=== PATIENT | male | born 1955 | race Caucasian/White ===

== ENCOUNTER → 2017-06-28 | Outpatient (CLI) | payer MEDICARE ==
[~2017-06-28] VITALS: Ht 175.3 cm; Wt 90.7 kg
[~2017-06-28] MED LIST: ALPR.25T PO; AMOX500C2 PO; ASP81TEC PO; CATHETER FLUSH 10 ML SYR IV PRN; CITA20TA4 PO; CLOP75TA PO; CLOP75TA69 PO; DICL75TA2 PO; DOXY100C42 PO; GABA-488 PO; GBPN400C PO; HYDR118S10 PO; LACT1CAP62 PO; LISI10TA2 PO; LISI5TAB PO; MECL25TA56 PO; MELA1TAB9 PO; METO25TA2 PO; METO25TA4 PO; MULT-1029 PO; MULT-298 PO; OMEG1CAP51 PO; OMEP20TA33 PO; PREG75CA PO; QTP200T PO; RANEXA 500MG PO; RANO500T2 PO; REGADENOSON 0.4 MG/5 ML SYR (LEXISCAN) IV ONE; SIMV10TA3 PO; SIMV20TA3 PO; SIMV40TA4 PO; TEMA30CA PO; TRAZ50TA67 PO; Ticagrelor PO; ZLP10T PO
== END ==
LOC: CARD 11:37
PROVIDERS: ATTEND Physician Assistant
DX: I25.10 Atherosclerotic heart disease of native coronary artery without angina pectoris; F41.9 Anxiety disorder, unspecified; E78.2 Mixed hyperlipidemia; I10 Essential (primary) hypertension

== ENCOUNTER → 2017-07-03 | Outpatient (CLI) | payer MEDICARE ==
[~2017-07-03] VITALS: Ht 175.3 cm; Wt 90.7 kg
[~2017-07-03] MED LIST changes: -CATHETER FLUSH 10 ML SYR IV PRN
[2017-07-03] MEDS: CATHETER FLUSH 10 ML SYR IV PRN ×2 (07:19→09:03)
[2017-07-03 09:00] VITALS: BP 152/93
--- NOTE | 2017-07-03 11:48 | STRESS TEST ---
DATE OF SERVICE: 07/03/2017 LEXISCAN MYOVIEW STRESS TEST REPORT REFERRING PHYSICIAN: 31. Baseline heart rate is 64, baseline blood pressure 147/92, baseline EKG sinus rhythm with no ischemic changes. In summary, the patient was injected with 10.49 mCi of technetium-99 Myoview and the resting images were obtained. Then, the patient received 0.4 mg of Lexiscan followed by 29.5 mCi of technetium-99 Myoview. Throughout the test, there were no EKG changes. The resting and stress images were reviewed and compared in the short axis, horizontal long axis, and vertical long axis views. Review of the images showed diaphragmatic attenuation with decreased uptake involving the whole inferior wall with no significant reversibility probably due to the diaphragmatic attenuation. SSS is 2, SDS zero. TID value 0.98. On the gated images, the left ventricle appeared to be normal size with hypokinesia involving the inferior wall, calculated ejection fraction 44%. CONCLUSION: 1. The patient tolerated Lexiscan well. 2. Diaphragmatic attenuation with fixed defect involving the whole inferior wall with no significant ischemia. 3. Normal left ventricular size with hypokinesia involving the inferior wall, calculated ejection fraction 44%. Job ID: [id number] DocumentID: [id number] Dictated Date: 07/03/2017 11:08:55 [employer] Manager Date: 07/03/2017 11:15:34 Dictated By: ALTAGRACIA SU MD
== END ==
LOC: CARD 07:00
PROVIDERS: ATTEND Physician Assistant
DX: I25.10 Atherosclerotic heart disease of native coronary artery without angina pectoris (principal); I10 Essential (primary) hypertension; E78.2 Mixed hyperlipidemia; F41.9 Anxiety disorder, unspecified
CPT/HCPCS: 78452; 93017

== ENCOUNTER → 2017-07-19 | Outpatient (CLI) | payer MEDICARE ==
[~2017-07-19] MED LIST changes: -REGADENOSON 0.4 MG/5 ML SYR (LEXISCAN) IV ONE
== END ==
LOC: CARD 10:30
PROVIDERS: ATTEND Physician Assistant
DX: I25.10 Atherosclerotic heart disease of native coronary artery without angina pectoris (principal); I10 Essential (primary) hypertension; E78.2 Mixed hyperlipidemia; F41.9 Anxiety disorder, unspecified
CPT/HCPCS: 93306

== ENCOUNTER → 2018-06-29 | Outpatient (CLI) | payer MEDICARE ==
--- NOTE | 2018-06-29 14:35 | Diagnostic Imaging Report ---
EXAM: CT CHEST SCREENING WO INDICATION: 45 pack year smoking history. Current smoker. COMPARISON: Chest radiograph 07/24/2015. CTA chest 01/03/2012. FINDINGS: There are advanced paraseptal and centrilobular emphysematous changes in both lungs. Diffuse bronchiectasis and bronchial wall thickening. 0.3 cm solid pulmonary nodule in the right middle lobe (series 2, image 175). No pleural effusion or pneumothorax. Sternotomy with CABG. Prominent caliber main pulmonary artery. Normal caliber thoracic aorta. No mediastinal, hilar or axillary lymphadenopathy. Right atrial enlargement. No pericardial effusion. The visualized upper abdominal contents are unremarkable. Age-appropriate spondylotic changes in the spine. No acute osseous findings. IMPRESSION: 1. Single 0.3 cm solid pulmonary nodule in the right middle lobe. Recommend continued screening with low dose chest CT in 12 months. 2. Advanced paraseptal and centrilobular emphysematous changes throughout the lungs. 3. Prominent caliber main pulmonary artery and right atrial enlargement compatible with pulmonary hypertension. LungRads category: 2. Modifier: S. Please note that the low-dose technique of this chest CT is of non-diagnostic quality. This study is only intended for lung cancer screening of high risk patients. Dictated by: Dictated on workstation # [id number]
== END ==
LOC: RAD 12:44
PROVIDERS: ATTEND Internal Medicine
DX: Z12.2 Encounter for screening for malignant neoplasm of respiratory organs (principal); F17.210 Nicotine dependence, cigarettes, uncomplicated; R91.1 Solitary pulmonary nodule; J43.9 Emphysema, unspecified; I77.89 Other specified disorders of arteries and arterioles; Z95.1 Presence of aortocoronary bypass graft

== ENCOUNTER → 2018-11-16 | Outpatient (CLI) | payer MEDICARE ==
[2018-11-16 14:51] LABS: ALANINE AMINOTRANSFERASE 54 U/L (0-55); ALBUMIN 4.8 GM/DL (3.2-4.5); ALKALINE PHOSPHATASE 78 U/L (40-136); BILIRUBIN,TOTAL 0.7 MG/DL (0.1-1.0); BUN/CREATININE RATIO 13; CALCIUM 10.3 MG/DL (8.5-10.1); CARBON DIOXIDE 20 MMOL/L (21-32); CHLORIDE 106 MMOL/L (98-107); CHOLESTEROL 208 MG/DL (< 200); CREATININE SERUM 1.46 MG/DL (0.60-1.30); GFR ESTIMATED 49; GLUCOSE 96 MG/DL (70-105); POTASSIUM 4.6 MMOL/L (3.6-5.0); SODIUM 136 MMOL/L (135-145); TOTAL PROTEIN 7.7 GM/DL (6.4-8.2); TRIGLYCERIDES 187 MG/DL (<150); VLDL CHOLESTEROL 37 MG/DL (5-40)
[2018-11-16 15:22] LABS: HDL CHOLESTEROL 43 MG/DL (40-60)
== END ==
LOC: LAB 14:13
PROVIDERS: ATTEND Physician Assistant
DX: I25.10 Atherosclerotic heart disease of native coronary artery without angina pectoris (principal); I10 Essential (primary) hypertension; E78.5 Hyperlipidemia, unspecified
CPT/HCPCS: 36415; 80053; 80061

== ENCOUNTER → 2019-05-03 | Day surgery (SDC) | payer MEDICARE ==
[~2019-05-03] VITALS: Ht 175.3 cm; Wt 101.2 kg
[~2019-05-03] MED LIST changes: +LIDOCAINE 1% INJ 20 ML 20 ML VIAL ONE; +REGADENOSON 0.4 MG/5 ML SYR (LEXISCAN) IV ONE
[2019-05-03 07:19] VITALS: BP 109/66
--- NOTE | 2019-05-03 09:09 | Implantation of Loop Monitor ---
Implant of Loop Monitior IMPLANTATION OF LOOP MONITOR REPORT DATE OF PROCEDURE: 05/03/19 PREOP DIAGNOSIS: syncope POSTOP DIAGNOSIS: syncope PROCEDURE DETAILS: The patient is a 64 male with history of paroxysmal atrial fibrillation requiring long-term surveillance. Therefore implantable loop recorder was discussed and agreed with the patient. Informed consent was taken. All risks and complications were discussed at length. The patient was draped and prepped in the usual sterile fashion. Local anesthesia was lidocaine, which was given in the substernal area close to the 4th intercostal space. Loop monitor [employer] with serial number [id number] was implanted according to the protocol. Steri- Strips were placed at the end of the procedure. There were no complications and the patient tolerated the procedure well. The device was interrogated with a v oltage of. ANESTHESIA: Local anesthesia with lidocaine. COMPLICATIONS: None CONTRAST/FLUOROSCOPY: None CONCLUSION: successful loop recorder implantation with no complications FINAL DIAGNOSIS: syncope Coronary artery disease Hypertension Hyperlipidemia ALTAGRACIA SU MD May 03, 2019 09:09
--- OUTSIDE RECORDS SUMMARY | 2019-05-03 09:19 | XMS REPORT ---
Author Author BELEM FUENTES Organization [facility] Address [address] [place] [address] Care Team Providers Care Watcher Automat Long Goods Name Role Phone BELEM FUENTES Unavailable PROBLEMS Type Condition ICD9-CM Code HUB93-QJ Code Onset Dates Condition Status SNOMED Code Problem Centrilobular emphysema J43.2 Active 92686170 Problem Chest wall pain R07.89 Active 218010113 Problem Chronic kidney disease N18.9 Active 992737432 Problem Coronary artery disease involving redding coronary artery of redding heart without angina pectoris I25.10 Active 6114127005227 Problem Chronic fatigue R53.82 Active 66925156 Problem Vertigo R42 Active 311956030 Problem Anemia, unspecified type D64.9 Active 769264810 Problem Iron deficiency anemia, unspecified iron deficiency anemia type D50.9 Active 53288519 Problem Mixed hyperlipidemia E78.2 Active 060842542 ALLERGIES No Information ENCOUNTERS Encounter Location Date Diagnosis [facility] [id number] [place] [address] Mar, [facility] [id number] [place] [address] Mar, Chest wall pain R07.89 [facility] [id number] [place] [address] Feb, Chest wall pain R07.89 [facility] [id number] [place] [address] Feb, Chest wall pain R07.89 [facility] [id number] [place] [address] Feb, [facility] [id number] [place] [address] Feb, Chest wall pain R07.89 [facility] [address] [facility] [id number] [address] January, Chest wall pain R07.89 and High risk medication use Z79.899 [facility] [address] [facility] [id number] [place] [address] January, Chest wall pain R07.89 [facility] [id number] [place] [address] January, Chest wall pain R07.89 [facility] [id number] [place] [address] Dec, Chest wall pain R07.89 [facility] [id number] [place] [address] Nov, Chest wall pain R07.89 [facility] [id number] [place] [address] Nov, [facility] [id number] [place] [address] Oct, Chest wall pain R07.89 [facility] [id number] [place] [address] Oct, Encounter for immunization Z23 [facility] [id number] [place] [address] Sep, [facility] [id number] [place] [address] Sep, Chest wall pain R07.89 [facility] [address] [address] Aug, Chest wall pain R07.89 [facility] [id number] [place] [address] Jul, Chest wall pain R07.89 [facility] [id number] [place] [address] Jun, Chest wall pain R07.89 [facility] [address] [address] Jun, [facility] [id number] [place] [address] Jun, Encounter for immunization Z23 [facility] [id number] [place] [address] Jun, Chest wall pain R07.89 [facility] [id number] [place] [address] Jun, Encounter for immunization Z23 [facility] [id number] [place] [address] May, [facility] [id number] [place] [address] May, Medicare annual wellness visit, initial Z00.00 ; Chest wall pain R07.89 ; Mixed hyperlipidemia E78.2 ; Coronary artery disease involving redding coronary artery of redding heart without angina pectoris I25.10 ; History of smoking Z87.891 and Chronic kidney disease N18.9 [facility] [id number] [place] [address] May, Chest wall pain R07.89 [facility] [id number] [place] [address] Apr, Chest wall pain R07.89 [facility] [address] [address] Apr, [facility] [address] [address] Apr, Chest wall pain R07.89 ; Chronic kidney disease N18.9 ; Iron deficiency anemia, unspecified iron deficiency anemia type D50.9 ; Chronic fatigue R53.82 ; Coronary artery disease involving redding coronary artery of redding heart without angina pectoris I25.10 and Anemia, unspecified type D64.9 [facility] [id number] [place] [address] Apr, Chest wall pain R07.89 [facility] [id number] [place] [address] Mar, Chest wall pain R07.89 [facility] [id number] [place] [address] Feb, Chest wall pain R07.89 [facility] [id number] [place] [address] January, Chest wall pain R07.89 [facility] [id number] [place] [address] Dec, Chest wall pain R07.89 ; Coronary artery disease involving redding coronary artery of redding heart without angina pectoris I25.10 and Vertigo R42 [facility] [id number] [place] [address] Dec, Chest wall pain R07.89 [facility] [id number] [place] [address] Nov, Chest wall pain R07.89 [facility] [id number] [place] [address] Oct, Chest wall pain R07.89 [facility] [id number] [place] [address] Sep, Chest wall pain R07.89 and Pleurodynia R07.81 [facility] [id number] [place] [address] Sep, [facility] [id number] [place] [address] Sep, Chest wall pain R07.89 and Sore throat J02.9 [facility] [id number] [place] [address] Sep, [facility] [id number] [place] [address] Sep, Sore throat J02.9 and Acute nasopharyngitis J00 [facility] [id number] [place] [address] Sep, [facility] [id number] [place] [address] Aug, Chest wall pain R07.89 [facility] [id number] [place] [address] Jul, Chest wall pain R07.89 [facility] [id number] [place] [address] Jul, [facility] [id number] [place] [address] Jul, Chest wall pain R07.89 [facility] [id number] [place] [address] Jul, Chest wall pain R07.89 ; Chronic fatigue R53.82 ; Anemia, unspecified type D64.9 ; Vertigo R42 and Coronary artery disease involving redding coronary artery of redding heart without angina pectoris I25.10 [facility] [id number] [place] [address] Jun, Chest wall pain R07.89 [facility] [id number] [place] [address] Apr, Chest wall pain R07.89 [facility] [id number] [place] [address] Apr, [facility] [id number] [place] [address] Apr, Dental abscess K04.7 [facility] [id number] [place] [address] Apr, [facility] [id number] [place] [address] Apr, Chest wall pain R07.89 [facility] [id number] [place] [address] Mar, Chest wall pain R07.89 [facility] [id number] [place] [address] 15 Feb, 2017 Chest wall pain R07.89 ; Lateral epicondylitis of right elbow M77.11 and Mixed hyperlipidemia E78.2 [facility] [id number] [place] [address] Feb, Chest wall pain R07.89 [facility] [id number] [place] [address] January, [facility] [id number] [place] [address] January, Chest wall pain R07.89 [facility] [id number] [place] [address] Dec, Chest wall pain R07.89 [facility] [id number] [place] [address] Nov, [facility] [id number] [place] [address] Nov, Hypokalemia E87.6 [facility] [id number] [place] [address] Nov, Hypokalemia E87.6 and Iron deficiency anemia, unspecified iron deficiency anemia type D50.9 [facility] [id number] [place] [address] Nov, [facility] [id number] [place] [address] Nov, Nausea R11.0 and Hypovolemia E86.1 [facility] [id number] [place] [address] Nov, [facility] [address] [address] Nov, [facility] [id number] [place] [address] Nov, Chest wall pain R07.89 [facility] [id number] [place] [address] Nov, Bronchitis J40 [facility] [id number] [place] [address] Oct, Chest wall pain R07.89 [facility] [id number] [place] [address] Sep, Chest wall pain R07.89 [facility] [id number] [place] [address] Aug, Chest wall pain R07.89 [facility] [id number] [place] [address] Aug, Chest pain on breathing R07.1 [facility] [id number] [place] [address] Jul, [facility] [id number] [place] [address] Jun, [facility] [id number] [place] [address] May, Chest wall pain R07.89 ; Iron deficiency anemia, unspecified iron deficiency anemia type D50.9 ; Chronic kidney disease N18.9 and Encounter for immunization Z23 [facility] [id number] [place] [address] May, [facility] [id number] [place] [address] Apr, [facility] [id number] [place] [address] Mar, [facility] [id number] [place] [address] Mar, [facility] [id number] [place] [address] Feb, [place] [address] [address] Feb, Iron deficiency anemia, unspecified iron deficiency anemia type D50.9 [facility] [address] [address] Feb, Dehydration E86.0 ; Diarrhea, unspecified type R19.7 ; Dizziness R42 and Other specified hypotension I95.89 [place] [facility] [address] [address] Feb, Anemia, unspecified type D64.9 [facility] [id number] [place] [address] January, Anemia, unspecified type D64.9 [place] [facility] [address] [address] January, Paresthesia R20.2 [place] [facility] [address] [address] January, Chest wall pain R07.89 [facility] [id number] [place] [address] Dec, Insomnia G47.00 [place] [id number] [place] [address] Dec, Chest pain on breathing R07.1 [facility] [id number] [place] [address] Nov, Chest pain on breathing R07.1 [facility] [id number] [place] [address] Oct, [place] [id number] [place] [address] Oct, [facility] [id number] [place] [address] Oct, Low back pain M54.5 and Chest wall pain R07.89 [facility] [id number] [place] [address] Oct, Pleurodynia R07.81 [facility] [address] [address] Sep, Pleurodynia R07.81 and Other nerve root and plexus disorders G54.8 [facility] [address] [address] Aug, Chronic kidney disease N18.9 ; Encounter for immunization Z23 ; Chest wall pain R07.89 ; Urinary frequency R35.0 and Vertigo R42 [facility] [id number] [place] [address] Aug, [facility] [id number] [place] [address] Jul, [facility] [id number] [place] [address] Jul, [facility] [id number] [place] [address] Jun, [facility] [id number] [place] [address] Jun, [facility] [id number] [place] [address] May, [facility] [id number] [place] [address] May, [facility] [address] [address] May, [facility] [id number] [place] [address] May, Coronary atherosclerosis of unspecified type of vessel, redding or graft 414.00 [facility] [address] [facility] [id number] [address] Apr, [facility] [address] [address] Apr, [facility] [address] [address] Apr, [facility] [id number] [place] [address] Apr, [facility] [id number] [place] [address] Apr, [facility] [id number] [place] [address] Apr, Coronary atherosclerosis of unspecified type of vessel, redding or graft 414.00 and Left-sided chest wall pain 786.52 [facility] [id number] [place] [address] Mar, [facility] [address] [address] Mar, [facility] [id number] [place] [address] Feb, [facility] [address] [address] Feb, [facility] [address] [address] January, [facility] [address] [address] January, [facility] [id number] [place] [address] January, [facility] [address] [address] January, Neuropathic pain of chest 353.8 [facility] [id number] [place] [address] 14 Dec, 2014 [facility] [place] [facility] [address] [facility] [id number] [place] [address] Dec, [facility] [place] [facility] [address] [facility] [id number] [place] [address] Nov, [facility] [place] [facility] [address] [facility] [id number] [place] [address] Nov, [facility] [place] [facility] [address] [facility] [id number] [place] [address] Nov, [facility] [place] [facility] [address] [facility] [id number] [place] [address] Nov, [facility] [place] [facility] [address] [facility] [id number] [place] [address] Nov, [facility] [place] [facility] [address] [place] [address] Nov, [facility] [place] [facility] [address] [facility] [id number] [place] [address] Oct, [facility] [place] [facility] [id number] [place] [address] Oct, [facility] [place] [facility] [id number] [place] [address] Oct, [facility] [place] [facility] [address] [place] [address] Oct, [facility] [place] [facility] [address] [facility] [id number] [address] Oct, [facility] [place] [facility] [address] [facility] [id number] [place] [address] Oct, [facility] [place] [facility] [address] [facility] [id number] [address] Sep, [facility] [place] [facility] [address] [facility] [id number] [address] Sep, [facility] [place] [facility] [address] [id number] [place] [address] Sep, [facility] [place] [facility] [address] [id number] [place] [address] Sep, [facility] [place] [facility] [address] [id number] [place] [address] Aug, [facility] [place] [facility] [address] [id number] [place] [address] Aug, [facility] [place] [facility] [address] [id number] [place] [address] Aug, [facility] [place] [facility] [address] [id number] [place] [address] Aug, [facility] [place] [facility] [address] [id number] [place] [address] Aug, [facility] [place] [facility] [address] [id number] [place] [address] Aug, [facility] [place] [facility] [address] [id number] [place] [address] Aug, [facility] [place] [facility] [address] [id number] [place] [address] Aug, [facility] [place] [facility] [address] [id number] [place] [address] Aug, [facility] [place] [facility] [address] [id number] [place] [address] Aug, [facility] [place] [facility] [address] [id number] [place] [address] Jul, [facility] [place] [facility] [address] [id number] [place] [address] Jul, [facility] [place] [facility] [address] [id number] [place] [address] Jul, [facility] [place] [facility] [address] [id number] [address] Jul, [facility] [place] [facility] [address] [id number] [place] [address] Jun, [facility] [place] [facility] [address] [id number] [place] [address] Jun, [facility] [place] [facility] [address] [id number] [place] [address] Jun, [facility] [place] [facility] [address] [id number] [place] [address] Jun, [facility] [place] [facility] [address] [id number] [place] [address] May, [facility] [place] [facility] [address] [id number] [place] [address] May, [facility] [place] [facility] [address] [id number] [place] [address] May, [facility] [place] [facility] [address] [id number] [place] [address] May, [facility] [place] [facility] [address] [id number] [place] [address] Apr, [facility] [place] [facility] [address] [id number] [place] [address] Apr, [facility] [place] [facility] [address] [id number] [place] [address] Feb, [facility] [place] [facility] [address] [id number] [place] [address] January, [facility] [place] [facility] [address] [id number] [place] [address] January, [facility] [place] [facility] [address] [id number] [place] [address] January, [facility] [place] [facility] [address] [id number] [place] [address] January, [facility] [place] [facility] [address] [id number] [place] [address] January, [facility] [address] [id number] [place] [address] January, [facility] [place] [facility] [address] [id number] [place] [address] Dec, [facility] [place] [facility] [address] [id number] [place] [address] Dec, [facility] [place] [facility] [address] [id number] [place] [address] Dec, [facility] [place] [facility] [address] [id number] [place] [address] Dec, [facility] [place] [facility] [address] [id number] [place] [address] Dec, [facility] [place] [facility] [address] [id number] [place] [address] Dec, [facility] [address] [id number] [place] [address] Dec, [facility] [place] [facility] [address] [id number] [place] [address] Dec, [facility] [place] [facility] [address] [id number] [place] [address] Nov, [facility] [place] [facility] [address] [id number] [place] [address] Nov, [facility] [place] [facility] [address] [id number] [place] [address] Nov, [facility] [place] [facility] [address] [id number] [place] [address] Nov, [facility] [place] [facility] [address] [id number] [place] [address] Nov, [facility] [place] [facility] [address] [id number] [place] [address] Nov, [facility] [place] [facility] [address] [id number] [place] [address] Nov, [facility] [place] [facility] [address] [id number] [place] [address] Oct, [facility] [place] [facility] [address] [id number] [place] [address] Oct, [facility] [place] [facility] [address] [id number] [place] [address] Oct, [facility] [place] [facility] [address] [id number] [place] [address] Oct, [facility] [place] [facility] [address] [id number] [place] [address] Sep, [facility] [place] [facility] [address] [id number] [place] [address] Sep, [facility] [place] [facility] [address] [id number] [place] [address] Sep, [facility] [place] [facility] [address] [id number] [place] [address] Sep, [facility] [place] [facility] [address] [id number] [place] [address] Aug, [facility] [place] [facility] [address] [id number] [place] [address] Aug, [facility] [place] [facility] [address] [id number] [place] [address] Jul, [facility] [place] [facility] [address] [id number] [place] [address] Jul, [facility] [place] [facility] [address] [id number] [place] [address] Jun, [facility] [place] [facility] [address] [id number] [place] [address] Jun, [facility] [place] [facility] [address] [id number] [place] [address] Jun, [facility] [address] [id number] [place] [address] May, [facility] [address] [id number] [place] [address] Apr, [facility] [address] [id number] [place] [address] Apr, [facility] [address] [id number] [place] [address] Mar, [facility] [address] [id number] [place] [address] Feb, [facility] [address] [id number] [place] [address] Feb, [facility] [address] [id number] [place] [address] January, [facility] [address] [id number] [place] [address] January, [facility] [address] [id number] [place] [address] Dec, [facility] [address] [id number] [place] [address] Dec, [facility] [address] [id number] [place] [address] Dec, [facility] [address] [id number] [place] [address] Dec, [facility] [address] [id number] [place] [address] Nov, [facility] [address] [id number] [place] [address] Nov, [facility] [address] [id number] [place] [address] Oct, [facility] [address] [id number] [place] [address] Oct, [facility] [place] [facility] [address] [id number] [place] [address] Oct, [facility] [place] [facility] [address] [id number] [place] [address] Sep, [facility] [place] [facility] [address] [id number] [place] [address] Sep, [facility] [place] [facility] [address] [id number] [place] [address] Sep, [facility] [place] [facility] [address] [id number] [place] [address] Sep, [facility] [place] [facility] [address] [id number] [place] [address] Sep, [facility] [place] [facility] [address] [id number] [place] [address] Aug, [facility] [place] [facility] [address] [id number] [place] [address] Aug, [facility] [place] [facility] [address] [id number] [place] [address] Aug, [facility] [place] [facility] [address] [id number] [place] [address] Aug, [facility] [place] [facility] [address] [id number] [place] [address] Jul, [facility] [place] [facility] [address] [id number] [place] [address] Jul, [facility] [place] [facility] [address] [id number] [place] [address] Jul, [facility] [place] [facility] [address] [id number] [place] [address] Jul, [facility] [place] [facility] [address] [id number] [place] [address] 22 Jun, 2012 [facility] [place] [facility] [address] [id number] [place] [address] 19 Jun, 2012 [facility] [place] [facility] [address] [id number] [place] [address] 08 Jun, 2012 [facility] [place] [facility] [address] [id number] [place] [address] 05 Jun, 2012 [facility] [place] [facility] [address] [id number] [place] [address] 02 Jun, 2012 [facility] [place] [facility] [address] [id number] [place] [address] 24 May, 2012 [facility] [place] [facility] [address] [id number] [place] [address] 13 May, 2012 [facility] [place] [facility] [address] [id number] [place] [address] 12 May, 2012 [facility] [place] [facility] [address] [id number] [place] [address] 11 May, 2011 [facility] [place] [facility] [address] [id number] [place] [address] 10 May, 2012 [facility] [place] [facility] [address] [id number] [place] [address] 06 May, 2012 [facility] [place] [facility] [address] [id number] [place] [address] 05 May, 2011 [facility] [place] [facility] [address] [id number] [place] [address] 30 Apr, 2012 [facility] [place] [facility] [address] [id number] [place] [address] 28 Apr, 2012 [facility] [place] [facility] [address] [id number] [place] [address] Apr, [facility] [place] [facility] [address] [id number] [place] [address] 24 Apr, 2012 [facility] [place] [facility] [address] [id number] [place] [address] Apr, [facility] [place] [facility] [address] [id number] [place] [address] Apr, [facility] [place] [facility] [address] [id number] [place] [address] Apr, [facility] [place] [facility] [address] [id number] [place] [address] Apr, [facility] [place] [facility] [address] [id number] [place] [address] Mar, [facility] [place] [facility] [address] [id number] [place] [address] Mar, [facility] [place] [facility] [address] [id number] [place] [address] Mar, [facility] [place] [facility] [address] [id number] [place] [address] Feb, [facility] [place] [facility] [address] [id number] [place] [address] January, [facility] [place] [facility] [address] [id number] [place] [address] January, [facility] [place] [facility] [address] [id number] [place] [address] January, [facility] [place] [facility] [address] [id number] [place] [address] Dec, [facility] [place] [facility] [address] [id number] [place] [address] Dec, [facility] [place] [facility] [address] [id number] [place] [address] Dec, [facility] [place] [facility] [address] [id number] [place] [address] Dec, [facility] [place] [facility] [address] [id number] [place] [address] Dec, [facility] [address] [facility] [id number] [place] [address] Dec, IMMUNIZATIONS No Known Immunizations SOCIAL HISTORY Never Assessed REASON FOR VISIT PLAN OF CARE VITAL SIGNS MEDICATIONS Unknown Medications RESULTS No Results PROCEDURES No Known procedures INSTRUCTIONS MEDICATIONS ADMINISTERED No Known Medications MEDICAL (GENERAL) HISTORY Type Description Date Medical History hypertension Medical History vertigo Medical History anxiety Medical History coronary artery disease Medical History hyperlipidemia Medical History obesity Medical History myocardial infarction Medical History angina Medical History erysipelas (11/2013) Medical History echocardiogram 02/2014 showed LVH, EF 60% Surgical History lung surgery--repaired holes in left lung 04/02/2012 Surgical History appendectomy age 10 at [facility] Surgical History cholecystectomy-[facility] 2007 Surgical History coronary artery bypass graft LAD 02/2012 Surgical History heart cath x2 after bypass, pt has 5 stents Hospitalization History Chest pain, dizziness, renal insuff, heat cath showed CAD ([facility]) 01/03/2012 Hospitalization History CABG ([facility]) Dr. Banks 02/2012
--- OUTSIDE RECORDS SUMMARY | 2019-05-03 09:20 | XMS REPORT ---
Author Author BELEM FUENTES Organization [facility] Address [address] [place] [address] Care Team Providers [employer] Consultant Name Role Phone BELEM FUENTES Unavailable PROBLEMS Type Condition ICD9-CM Code HKS44-MK Code Onset Dates Condition Status SNOMED Code Problem Centrilobular emphysema J43.2 Active 13211427 Problem Chest wall pain R07.89 Active 033219071 Problem Chronic kidney disease N18.9 Active 902072268 Problem Coronary artery disease involving [place] coronary artery of [place] heart without angina pectoris I25.10 Active 2900349096879 Problem Chronic fatigue R53.82 Active 48873339 Problem Vertigo R42 Active 935855784 Problem Anemia, unspecified type D64.9 Active 318598638 Problem Iron deficiency anemia, unspecified iron deficiency anemia type D50.9 Active 27047388 Problem Mixed hyperlipidemia E78.2 Active 436974995 ALLERGIES No Information ENCOUNTERS Encounter Location Date Diagnosis [facility] [id number] [place] [address] Mar, [facility] [id number] [place] [address] Mar, Chest wall pain R07.89 [facility] [id number] [place] [address] Feb, Chest wall pain R07.89 [facility] [id number] [place] [address] Feb, Chest wall pain R07.89 [facility] [id number] [place] [address] Feb, [facility] [id number] [place] [address] Feb, Chest wall pain R07.89 [facility] [address] [facility] [id number] [address] January, Chest wall pain R07.89 and High risk medication use Z79.899 [facility] [address] [facility] [id number] [place] [address] January, Chest wall pain R07.89 [facility] [id number] [place] [address] January, Chest wall pain R07.89 [facility] [id number] [place] [address] Dec, Chest wall pain R07.89 [facility] [id number] [place] [address] Nov, Chest wall pain R07.89 [facility] [id number] [place] [address] Nov, [facility] [id number] [place] [address] Oct, Chest wall pain R07.89 [facility] [id number] [place] [address] Oct, Encounter for immunization Z23 [facility] [id number] [place] [address] Sep, [facility] [id number] [place] [address] Sep, Chest wall pain R07.89 [facility] [address] [address] Aug, Chest wall pain R07.89 [facility] [id number] [place] [address] Jul, Chest wall pain R07.89 [facility] [id number] [place] [address] Jun, Chest wall pain R07.89 [facility] [address] [address] Jun, [facility] [id number] [place] [address] Jun, Encounter for immunization Z23 [facility] [id number] [place] [address] Jun, Chest wall pain R07.89 [facility] [id number] [place] [address] Jun, Encounter for immunization Z23 [facility] [id number] [place] [address] May, [place] [facility] [id number] [place] [address] May, Medicare annual wellness visit, initial Z00.00 ; Chest wall pain R07.89 ; Mixed hyperlipidemia E78.2 ; Coronary artery disease involving [place] coronary artery of [place] heart without angina pectoris I25.10 ; History of smoking Z87.891 and Chronic kidney disease N18.9 [facility] [id number] [place] [address] May, Chest wall pain R07.89 [facility] [id number] [place] [address] Apr, Chest wall pain R07.89 [facility] [address] [address] Apr, [facility] [address] [address] Apr, Chest wall pain R07.89 ; Chronic kidney disease N18.9 ; Iron deficiency anemia, unspecified iron deficiency anemia type D50.9 ; Chronic fatigue R53.82 ; Coronary artery disease involving [place] coronary artery of [place] heart without angina pectoris I25.10 and Anemia, unspecified type D64.9 [facility] [facility] [id number] [place] [address] Apr, Chest wall pain R07.89 [facility] [id number] [place] [address] Mar, Chest wall pain R07.89 [facility] [id number] [place] [address] Feb, Chest wall pain R07.89 [facility] [id number] [place] [address] January, Chest wall pain R07.89 [facility] [id number] [place] [address] Dec, Chest wall pain R07.89 ; Coronary artery disease involving [place] coronary artery of [place] heart without angina pectoris I25.10 and Vertigo R42 [facility] [id number] [place] [address] Dec, Chest wall pain R07.89 [facility] [id number] [place] [address] Nov, Chest wall pain R07.89 [facility] [id number] [place] [address] Oct, Chest wall pain R07.89 [facility] [id number] [place] [address] Sep, Chest wall pain R07.89 and Pleurodynia R07.81 [facility] [id number] [place] [address] Sep, [facility] [id number] [place] [address] Sep, Chest wall pain R07.89 and Sore throat J02.9 [facility] [id number] [place] [address] Sep, [facility] [id number] [place] [address] Sep, Sore throat J02.9 and Acute nasopharyngitis J00 [facility] [id number] [place] [address] Sep, [facility] [id number] [place] [address] Aug, Chest wall pain R07.89 [facility] [id number] [place] [address] Jul, Chest wall pain R07.89 [facility] [id number] [place] [address] Jul, [facility] [id number] [place] [address] Jul, Chest wall pain R07.89 [facility] [id number] [place] [address] Jul, Chest wall pain R07.89 ; Chronic fatigue R53.82 ; Anemia, unspecified type D64.9 ; Vertigo R42 and Coronary artery disease involving [place] coronary artery of [place] heart without angina pectoris I25.10 [facility] [facility] [id number] [place] [address] Jun, Chest wall pain R07.89 [facility] [id number] [place] [address] Apr, Chest wall pain R07.89 [facility] [id number] [place] [address] Apr, [facility] [id number] [place] [address] Apr, Dental abscess K04.7 [facility] [id number] [place] [address] Apr, [facility] [id number] [place] [address] Apr, Chest wall pain R07.89 [facility] [id number] [place] [address] Mar, Chest wall pain R07.89 [facility] [id number] [place] [address] 15 Feb, 2017 Chest wall pain R07.89 ; Lateral epicondylitis of right elbow M77.11 and Mixed hyperlipidemia E78.2 [facility] [id number] [place] [address] Feb, Chest wall pain R07.89 [facility] [id number] [place] [address] January, [facility] [id number] [place] [address] January, Chest wall pain R07.89 [facility] [id number] [place] [address] Dec, Chest wall pain R07.89 [facility] [facility] [id number] [place] [address] Nov, [facility] [facility] [id number] [place] [address] Nov, Hypokalemia E87.6 [facility] [facility] [id number] [place] [address] Nov, Hypokalemia E87.6 and Iron deficiency anemia, unspecified iron deficiency anemia type D50.9 [facility] [facility] [id number] [place] [address] Nov, [facility] [id number] [place] [address] Nov, Nausea R11.0 and Hypovolemia E86.1 [place] [facility] [id number] [place] [address] Nov, [place] [address] [address] Nov, [facility] [id number] [place] [address] Nov, Chest wall pain R07.89 [facility] [id number] [place] [address] Nov, Bronchitis J40 [facility] [id number] [place] [address] Oct, Chest wall pain R07.89 [facility] [id number] [place] [address] Sep, Chest wall pain R07.89 [facility] [id number] [place] [address] Aug, Chest wall pain R07.89 [facility] [id number] [place] [address] Aug, Chest pain on breathing R07.1 [facility] [id number] [place] [address] Jul, [facility] [id number] [place] [address] Jun, [facility] [id number] [place] [address] May, Chest wall pain R07.89 ; Iron deficiency anemia, unspecified iron deficiency anemia type D50.9 ; Chronic kidney disease N18.9 and Encounter for immunization Z23 [facility] [id number] [place] [address] May, [facility] [id number] [place] [address] Apr, [facility] [id number] [place] [address] Mar, [facility] [id number] [place] [address] Mar, [facility] [id number] [place] [address] Feb, [place] [address] [address] Feb, Iron deficiency anemia, unspecified iron deficiency anemia type D50.9 [facility] [address] [address] Feb, Dehydration E86.0 ; Diarrhea, unspecified type R19.7 ; Dizziness R42 and Other specified hypotension I95.89 [place] [address] [address] Feb, Anemia, unspecified type D64.9 [place] [id number] [place] [address] January, Anemia, unspecified type D64.9 [place] [address] [address] January, Paresthesia R20.2 [place] [facility] [address] [address] January, Chest wall pain R07.89 [place] [facility] [id number] [place] [address] Dec, Insomnia G47.00 [place] [facility] [id number] [place] [address] Dec, Chest pain on breathing R07.1 [facility] [id number] [place] [address] Nov, Chest pain on breathing R07.1 [place] [facility] [id number] [place] [address] Oct, [place] [id number] [place] [address] Oct, [place] [facility] [id number] [place] [address] Oct, Low back pain M54.5 and Chest wall pain R07.89 [facility] [id number] [place] [address] Oct, Pleurodynia R07.81 [facility] [address] [address] Sep, Pleurodynia R07.81 and Other nerve root and plexus disorders G54.8 [facility] [address] [address] Aug, Chronic kidney disease N18.9 ; Encounter for immunization Z23 ; Chest wall pain R07.89 ; Urinary frequency R35.0 and Vertigo R42 [facility] [id number] [place] [address] Aug, [facility] [id number] [place] [address] Jul, [facility] [id number] [place] [address] Jul, [facility] [id number] [place] [address] Jun, [facility] [id number] [place] [address] Jun, [facility] [id number] [place] [address] May, [facility] [id number] [place] [address] May, [facility] [address] [address] May, [facility] [id number] [place] [address] May, Coronary atherosclerosis of unspecified type of vessel, [place] or graft 414.00 [facility] [address] [facility] [id number] [address] Apr, [facility] [address] [address] Apr, [facility] [address] [address] Apr, [facility] [id number] [place] [address] Apr, [facility] [address] [place] [address] Apr, [facility] [address] [place] [address] Apr, Coronary atherosclerosis of unspecified type of vessel, [place] or graft 414.00 and Left-sided chest wall pain 786.52 [facility] [id number] [place] [address] Mar, [facility] [address] [address] Mar, [facility] [address] [place] [address] Feb, [facility] [address] [address] Feb, [facility] [address] [address] January, [facility] [address] [address] January, [facility] [address] [place] [address] January, [facility] [address] [address] January, Neuropathic pain of chest 353.8 [facility] [id number] [place] [address] 14 Dec, 2014 [facility] [place] [facility] [address] [facility] [id number] [place] [address] Dec, [facility] [place] [facility] [address] [facility] [id number] [place] [address] Nov, [facility] [place] [facility] [address] [facility] [id number] [place] [address] Nov, [facility] [place] [facility] [address] [facility] [id number] [place] [address] Nov, [facility] [place] [facility] [address] [facility] [id number] [place] [address] Nov, [facility] [place] [facility] [address] [facility] [id number] [place] [address] Nov, [facility] [place] [facility] [id number] [place] [address] Nov, [facility] [place] [facility] [address] [facility] [id number] [place] [address] Oct, [facility] [place] [facility] [id number] [place] [address] Oct, [facility] [place] [facility] [id number] [place] [address] Oct, [facility] [place] [facility] [id number] [place] [address] Oct, [facility] [place] [facility] [address] [facility] [id number] [address] Oct, [facility] [place] [facility] [address] [facility] [id number] [place] [address] Oct, [facility] [place] [facility] [address] [facility] [id number] [address] Sep, [facility] [place] [facility] [address] [facility] [id number] [address] Sep, [facility] [place] [facility] [address] [id number] [place] [address] Sep, [facility] [place] [facility] [address] [id number] [place] [address] Sep, [facility] [place] [facility] [address] [id number] [place] [address] Aug, [facility] [place] [facility] [address] [id number] [place] [address] Aug, [facility] [place] [facility] [address] [id number] [place] [address] Aug, [facility] [place] [facility] [address] [id number] [place] [address] Aug, [facility] [place] [facility] [address] [id number] [place] [address] Aug, [facility] [place] [facility] [address] [id number] [place] [address] Aug, [facility] [place] [facility] [address] [id number] [place] [address] Aug, [facility] [place] [facility] [address] [id number] [place] [address] Aug, [facility] [place] [facility] [address] [id number] [place] [address] Aug, [facility] [place] [facility] [address] [id number] [place] [address] Aug, [facility] [place] [facility] [address] [id number] [place] [address] Jul, [facility] [place] [facility] [address] [id number] [place] [address] Jul, [facility] [place] [facility] [address] [id number] [place] [address] Jul, [facility] [place] [facility] [address] [id number] [address] Jul, [facility] [place] [facility] [address] [id number] [place] [address] Jun, [facility] [place] [facility] [address] [id number] [place] [address] Jun, [facility] [place] [facility] [address] [id number] [place] [address] Jun, [facility] [place] [facility] [address] [id number] [place] [address] Jun, [facility] [place] [facility] [address] [id number] [place] [address] May, [facility] [place] [facility] [address] [id number] [place] [address] May, [facility] [place] [facility] [address] [id number] [place] [address] May, [facility] [place] [facility] [address] [id number] [place] [address] May, [facility] [place] [facility] [address] [id number] [place] [address] Apr, [facility] [place] [facility] [address] [id number] [place] [address] Apr, [facility] [place] [facility] [address] [id number] [place] [address] Feb, [facility] [place] [facility] [address] [id number] [place] [address] January, [facility] [place] [facility] [address] [id number] [place] [address] January, [facility] [place] [facility] [address] [id number] [place] [address] January, [facility] [place] [facility] [address] [id number] [place] [address] January, [facility] [place] [facility] [address] [id number] [place] [address] January, [facility] [address] [id number] [place] [address] January, [facility] [place] [facility] [address] [id number] [place] [address] Dec, [facility] [place] [facility] [address] [id number] [place] [address] Dec, [facility] [place] [facility] [address] [id number] [place] [address] Dec, [facility] [place] [facility] [address] [id number] [place] [address] Dec, [facility] [place] [facility] [address] [id number] [place] [address] Dec, [facility] [place] [facility] [address] [id number] [place] [address] Dec, [facility] [address] [id number] [place] [address] Dec, [facility] [place] [facility] [address] [id number] [place] [address] Dec, [facility] [place] [facility] [address] [id number] [place] [address] Nov, [facility] [place] [facility] [address] [id number] [place] [address] Nov, [facility] [place] [facility] [address] [id number] [place] [address] Nov, [facility] [place] [facility] [address] [id number] [place] [address] Nov, [facility] [place] [facility] [address] [id number] [place] [address] Nov, [facility] [place] [facility] [address] [id number] [place] [address] Nov, [facility] [place] [facility] [address] [id number] [place] [address] Nov, [facility] [place] [facility] [address] [id number] [place] [address] Oct, [facility] [place] [facility] [address] [id number] [place] [address] Oct, [facility] [place] [facility] [address] [id number] [place] [address] Oct, [facility] [place] [facility] [address] [id number] [place] [address] Oct, [facility] [place] [facility] [address] [id number] [place] [address] Sep, [facility] [place] [facility] [address] [id number] [place] [address] Sep, [facility] [place] [facility] [address] [id number] [place] [address] Sep, [facility] [place] [facility] [address] [id number] [place] [address] Sep, [facility] [place] [facility] [address] [id number] [place] [address] Aug, [facility] [place] [facility] [address] [id number] [place] [address] Aug, [facility] [place] [facility] [address] [id number] [place] [address] Jul, [facility] [place] [facility] [address] [id number] [place] [address] Jul, [facility] [place] [facility] [address] [id number] [place] [address] Jun, [facility] [place] [facility] [address] [id number] [place] [address] Jun, [facility] [place] [facility] [address] [id number] [place] [address] Jun, [facility] [address] [id number] [place] [address] May, [facility] [address] [id number] [place] [address] Apr, [facility] [address] [id number] [place] [address] Apr, [facility] [address] [id number] [place] [address] Mar, [facility] [address] [id number] [place] [address] Feb, [facility] [address] [id number] [place] [address] Feb, [facility] [address] [id number] [place] [address] January, [facility] [address] [id number] [place] [address] January, [facility] [address] [id number] [place] [address] Dec, [facility] [address] [id number] [place] [address] Dec, [facility] [address] [id number] [place] [address] Dec, [facility] [address] [id number] [place] [address] Dec, [facility] [address] [id number] [place] [address] Nov, [facility] [address] [id number] [place] [address] Nov, [facility] [address] [id number] [place] [address] Oct, [facility] [address] [id number] [place] [address] Oct, [facility] [place] [facility] [address] [id number] [place] [address] Oct, [facility] [place] [facility] [address] [id number] [place] [address] Sep, [facility] [place] [facility] [address] [id number] [place] [address] Sep, [facility] [place] [facility] [address] [id number] [place] [address] Sep, [facility] [place] [facility] [address] [id number] [place] [address] Sep, [facility] [place] [facility] [address] [id number] [place] [address] Sep, [facility] [place] [facility] [address] [id number] [place] [address] Aug, [facility] [place] [facility] [address] [id number] [place] [address] Aug, [facility] [place] [facility] [address] [id number] [place] [address] Aug, [facility] [place] [facility] [address] [id number] [place] [address] Aug, [facility] [place] [facility] [address] [id number] [place] [address] Jul, [facility] [place] [facility] [address] [id number] [place] [address] Jul, [facility] [place] [facility] [address] [id number] [place] [address] Jul, [facility] [place] [facility] [address] [id number] [place] [address] Jul, [facility] [place] [facility] [address] [id number] [place] [address] 22 Jun, 2012 [facility] [place] [facility] [address] [id number] [place] [address] 19 Jun, 2012 [facility] [place] [facility] [address] [id number] [place] [address] 08 Jun, 2012 [facility] [place] [facility] [address] [id number] [place] [address] 05 Jun, 2012 [facility] [place] [facility] [address] [id number] [place] [address] 02 Jun, 2012 [facility] [place] [facility] [address] [id number] [place] [address] 24 May, 2012 [facility] [place] [facility] [address] [id number] [place] [address] 13 May, 2012 [facility] [place] [facility] [address] [id number] [place] [address] 12 May, 2012 [facility] [place] [facility] [address] [id number] [place] [address] 11 May, 2011 [facility] [place] [facility] [address] [id number] [place] [address] 10 May, 2012 [facility] [place] [facility] [address] [id number] [place] [address] 06 May, 2012 [facility] [place] [facility] [address] [id number] [place] [address] 05 May, 2011 [facility] [place] [facility] [address] [id number] [place] [address] 30 Apr, 2012 [facility] [place] [facility] [address] [id number] [place] [address] 28 Apr, 2012 [facility] [place] [facility] [address] [id number] [place] [address] Apr, [facility] [place] [facility] [address] [id number] [place] [address] 24 Apr, 2012 [facility] [place] [facility] [address] [id number] [place] [address] Apr, [facility] [place] [facility] [address] [id number] [place] [address] Apr, [facility] [place] [facility] [address] [id number] [place] [address] Apr, [facility] [place] [facility] [address] [id number] [place] [address] Apr, [facility] [place] [facility] [address] [id number] [place] [address] Mar, [facility] [place] [facility] [address] [id number] [place] [address] Mar, [facility] [place] [facility] [address] [id number] [place] [address] Mar, [facility] [place] [facility] [address] [id number] [place] [address] Feb, [facility] [place] [facility] [address] [id number] [place] [address] January, [facility] [place] [facility] [address] [id number] [place] [address] January, [facility] [place] [facility] [address] [id number] [place] [address] January, [facility] [place] [facility] [address] [id number] [place] [address] Dec, [facility] [place] [facility] [address] [id number] [place] [address] Dec, [facility] [place] [facility] [address] [id number] [place] [address] Dec, [facility] [place] [facility] [address] [id number] [place] [address] Dec, [facility] [place] [facility] [address] [id number] [place] [address] Dec, [facility] [address] [facility] [id number] [place] [address] Dec, IMMUNIZATIONS No Known Immunizations SOCIAL HISTORY [...] 04/02/2012 Surgical History appendectomy age 10 at [facility] Surgical History cholecystectomy-[facility] 2007 Surgical History coronary artery bypass graft LAD 02/2012 Surgical History heart cath x2 after bypass, pt has 5 stents Hospitalization History Chest pain, dizziness, renal insuff, heat cath showed CAD ([facility]) 01/03/2012 Hospitalization History CABG ([facility]) Dr. Banks 02/2012
--- OUTSIDE RECORDS SUMMARY | 2019-05-03 09:20 | XMS REPORT ---
Author Author BELEM FUENTES Organization [facility] Address [address] [place] [address] Care Team Providers Care Wire Cutter Name Role Phone BELEM FUENTES Unavailable PROBLEMS Type Condition ICD9-CM Code WSY97-LI Code Onset Dates Condition Status SNOMED Code Problem Centrilobular emphysema J43.2 Active 57803325 Problem Chest wall pain R07.89 Active 920280462 Problem Chronic kidney disease N18.9 Active 423101835 Problem Coronary artery disease involving [place] coronary artery of [place] heart without angina pectoris I25.10 Active 5819003524389 Problem Chronic fatigue R53.82 Active 14428906 Problem Vertigo R42 Active 503519002 Problem Anemia, unspecified type D64.9 Active 509319005 Problem Iron deficiency anemia, unspecified iron deficiency anemia type D50.9 Active 58042229 Problem Mixed hyperlipidemia E78.2 Active 816574398 ALLERGIES No Information ENCOUNTERS Encounter Location Date Diagnosis [facility] [id number] [place] [address] Mar, [facility] [id number] [place] [address] Mar, Chest wall pain R07.89 [facility] [id number] [place] [address] Feb, Chest wall pain R07.89 [facility] [id number] [place] [address] Feb, Chest wall pain R07.89 [facility] [id number] [place] [address] Feb, [facility] [id number] [place] [address] Feb, Chest wall pain R07.89 [facility] [address] [facility] [id number], [place] [address] January, Chest wall pain R07.89 and High risk medication use Z79.899 [facility] [address] [facility] [id number] [place] [address] January, Chest wall pain R07.89 [facility] [id number] [place] [address] January, Chest wall pain R07.89 [facility] [id number] [place] [address] Dec, Chest wall pain R07.89 [facility] [id number] [place] [address] Nov, Chest wall pain R07.89 [facility] [id number] [place] [address] Nov, [facility] [id number] [place] [address] Oct, Chest wall pain R07.89 [facility] [id number] [place] [address] Oct, Encounter for immunization Z23 [facility] [id number] [place] [address] Sep, [facility] [id number] [place] [address] Sep, Chest wall pain R07.89 [facility] [address] [address] Aug, Chest wall pain R07.89 [facility] [id number] [place] [address] Jul, Chest wall pain R07.89 [facility] [id number] [place] [address] Jun, Chest wall pain R07.89 [facility] [address] [address] Jun, [facility] [id number] [place] [address] Jun, Encounter for immunization Z23 [facility] [id number] [place] [address] Jun, Chest wall pain R07.89 [facility] [id number] [place] [address] Jun, Encounter for immunization Z23 [facility] [id number] [place] [address] May, [facility] [id number] [place] [address] May, Medicare annual wellness visit, initial Z00.00 ; Chest wall pain R07.89 ; Mixed hyperlipidemia E78.2 ; Coronary artery disease involving [place] coronary artery of [place] heart without angina pectoris I25.10 ; History of smoking Z87.891 and Chronic kidney disease N18.9 [facility] [id number] [place] [address] May, Chest wall pain R07.89 [facility] [id number] [place] [address] Apr, Chest wall pain R07.89 [facility] [address], [place] [address] Apr, [facility] [address] [address] Apr, Chest wall pain R07.89 ; Chronic kidney disease N18.9 ; Iron deficiency anemia, unspecified iron deficiency anemia type D50.9 ; Chronic fatigue R53.82 ; Coronary artery disease involving [place] coronary artery of [place] heart without angina pectoris I25.10 and Anemia, unspecified type D64.9 [facility] [id number] [place] [address] Apr, Chest wall pain R07.89 [facility] [id number] [place] [address] Mar, Chest wall pain R07.89 [facility] [id number] [place] [address] Feb, Chest wall pain R07.89 [facility] [id number] [place] [address] January, Chest wall pain R07.89 [facility] [id number] [place] [address] Dec, Chest wall pain R07.89 ; Coronary artery disease involving [place] coronary artery of [place] heart without angina pectoris I25.10 and Vertigo R42 [facility] [id number] [place] [address] Dec, Chest wall pain R07.89 [facility] [id number] [place] [address] Nov, Chest wall pain R07.89 [facility] [id number] [place] [address] Oct, Chest wall pain R07.89 [facility] [id number] [place] [address] Sep, Chest wall pain R07.89 and Pleurodynia R07.81 [facility] [id number] [place] [address] Sep, [facility] [id number] [place] [address] Sep, Chest wall pain R07.89 and Sore throat J02.9 [facility] [id number] [place] [address] Sep, [facility] [id number] [place] [address] Sep, Sore throat J02.9 and Acute nasopharyngitis J00 [facility] [id number] [place] [address] Sep, [facility] [id number] [place] [address] Aug, Chest wall pain R07.89 [facility] [id number] [place] [address] Jul, Chest wall pain R07.89 [facility] [id number] [place] [address] Jul, [facility] [id number] [place] [address] Jul, Chest wall pain R07.89 [facility] [id number] [place] [address] Jul, Chest wall pain R07.89 ; Chronic fatigue R53.82 ; Anemia, unspecified type D64.9 ; Vertigo R42 and Coronary artery disease involving [place] coronary artery of [place] heart without angina pectoris I25.10 [facility] [id number] [place] [address] Jun, Chest wall pain R07.89 [facility] [id number] [place] [address] Apr, Chest wall pain R07.89 [facility] [id number] [place] [address] Apr, [facility] [id number] [place] [address] Apr, Dental abscess K04.7 [facility] [id number] [place] [address] Apr, [facility] [id number] [place] [address] Apr, Chest wall pain R07.89 [facility] [id number] [place] [address] Mar, Chest wall pain R07.89 [facility] [id number] [place] [address] 15 Feb, 2017 Chest wall pain R07.89 ; Lateral epicondylitis of right elbow M77.11 and Mixed hyperlipidemia E78.2 [facility] [id number] [place] [address] Feb, Chest wall pain R07.89 [facility] [id number] [place] [address] January, [facility] [id number] [place] [address] January, Chest wall pain R07.89 [facility] [id number] [place] [address] Dec, Chest wall pain R07.89 [facility] [id number] [place] [address] Nov, [facility] [id number] [place] [address] Nov, Hypokalemia E87.6 [facility] [id number] [place] [address] Nov, Hypokalemia E87.6 and Iron deficiency anemia, unspecified iron deficiency anemia type D50.9 [facility] [id number] [place] [address] Nov, [facility] [id number] [place] [address] Nov, Nausea R11.0 and Hypovolemia E86.1 [facility] [id number] [place] [address] Nov, [facility] [address] [address] Nov, [facility] [id number] [place] [address] Nov, Chest wall pain R07.89 [facility] [id number] [place] [address] Nov, Bronchitis J40 [facility] [id number] [place] [address] Oct, Chest wall pain R07.89 [facility] [id number] [place] [address] Sep, Chest wall pain R07.89 [facility] [id number] [place] [address] Aug, Chest wall pain R07.89 [facility] [id number] [place] [address] Aug, Chest pain on breathing R07.1 [facility] [id number] [place] [address] Jul, [facility] [id number] [place] [address] Jun, [facility] [id number] [place] [address] May, Chest wall pain R07.89 ; Iron deficiency anemia, unspecified iron deficiency anemia type D50.9 ; Chronic kidney disease N18.9 and Encounter for immunization Z23 [facility] [id number] [place] [address] May, [facility] [id number] [place] [address] Apr, [facility] [id number] [place] [address] Mar, [facility] [id number] [place] [address] Mar, [facility] [id number] [place] [address] Feb, [facility] [address] [address] Feb, Iron deficiency anemia, unspecified iron deficiency anemia type D50.9 [facility] [address] [address] Feb, Dehydration E86.0 ; Diarrhea, unspecified type R19.7 ; Dizziness R42 and Other specified hypotension I95.89 [facility] [address] [address] Feb, Anemia, unspecified type D64.9 [facility] [id number] [place] [address] January, Anemia, unspecified type D64.9 [facility] [address] [address] January, Paresthesia R20.2 [facility] [address] [address] January, Chest wall pain R07.89 [facility] [id number] [place] [address] Dec, Insomnia G47.00 [facility] [id number] [place] [address] Dec, Chest pain on breathing R07.1 [facility] [id number] [place] [address] Nov, Chest pain on breathing R07.1 [facility] [id number] [place] [address] Oct, [facility] [id number] [place] [address] Oct, [facility] [id number] [place] [address] Oct, Low back pain M54.5 and Chest wall pain R07.89 [facility] [id number] [place] [address] Oct, Pleurodynia R07.81 [facility] [address] [address] Sep, Pleurodynia R07.81 and Other nerve root and plexus disorders G54.8 [facility] [address] [address] Aug, Chronic kidney disease N18.9 ; Encounter for immunization Z23 ; Chest wall pain R07.89 ; Urinary frequency R35.0 and Vertigo R42 [facility] [id number] [place] [address] Aug, [facility] [id number] [place] [address] Jul, [facility] [id number] [place] [address] Jul, [facility] [id number] [place] [address] Jun, [facility] [id number] [place] [address] Jun, [facility] [id number] [place] [address] May, [facility] [id number] [place] [address] May, [facility] [address] [address] May, [facility] [id number] [place] [address] May, Coronary atherosclerosis of unspecified type of vessel, [place] or graft 414.00 [facility] [address] [facility] [id number], [place] [address] Apr, [facility] [address], [place] [address] Apr, [facility] [address], [place] [address] Apr, [facility] [id number] [place] [address] Apr, [facility] [id number] [place] [address] Apr, [facility] [id number] [place] [address] Apr, Coronary atherosclerosis of unspecified type of vessel, [place] or graft 414.00 and Left-sided chest wall pain 786.52 [facility] [id number] [place] [address] Mar, [facility] [address], [place] [address] Mar, [facility] [id number] [place] [address] Feb, [facility] [address], [place] [address] Feb, [facility] [address], [place] [address] January, [facility] [address], [place] [address] January, [facility] [id number] [place] [address] January, [facility] [address], [place] [address] January, Neuropathic pain of chest 353.8 [facility] [id number] [place] [address] 14 Dec, 2014 [facility] [place] [facility] [address] [facility] [id number] [place] [address] Dec, [facility] [place] [facility] [address] [facility] [id number] [place] [address] Nov, [facility] [place] [facility] [address] [facility] [id number] [place] [address] Nov, [facility] [place] [facility] [address] [facility] [id number] [place] [address] Nov, [facility] [place] [facility] [address] [facility] [id number] [place] [address] Nov, [facility] [place] [facility] [address] [facility] [id number] [place] [address] Nov, [facility] [place] [facility] [id number] [place] [address] Nov, [facility] [place] [facility] [address] [facility] [id number] [place] [address] Oct, [facility] [place] [facility] [id number] [place] [address] Oct, [facility] [place] [facility] [id number] [place] [address] Oct, [facility] [place] [facility] [id number] [place] [address] Oct, [facility] [place] [facility] [address] [facility] [id number], [place] [address] Oct, [facility] [place] [facility] [address] [facility] [id number] [place] [address] Oct, [facility] [place] [facility] [address] [facility] [id number], [place] [address] Sep, [facility] [place] [facility] [address] [facility] [id number], [place] [address] Sep, [facility] [place] [facility] [address] [id number] [place] [address] Sep, [facility] [place] [facility] [address] [id number] [place] [address] Sep, [facility] [place] [facility] [address] [id number] [place] [address] Aug, [facility] [place] [facility] [address] [id number] [place] [address] Aug, [facility] [place] [facility] [address] [id number] [place] [address] Aug, [facility] [place] [facility] [address] [id number] [place] [address] Aug, [facility] [place] [facility] [address] [id number] [place] [address] Aug, [facility] [place] [facility] [address] [id number] [place] [address] Aug, [facility] [place] [facility] [address] [id number] [place] [address] Aug, [facility] [place] [facility] [address] [id number] [place] [address] Aug, [facility] [place] [facility] [address] [id number] [place] [address] Aug, [facility] [place] [facility] [address] [id number] [place] [address] Aug, [facility] [place] [facility] [address] [id number] [place] [address] Jul, [facility] [place] [facility] [address] [id number] [place] [address] Jul, [facility] [place] [facility] [address] [id number] [place] [address] Jul, [facility] [place] [facility] [address] [id number], [place] [address] Jul, [facility] [place] [facility] [address] [id number] [place] [address] Jun, [facility] [place] [facility] [address] [id number] [place] [address] Jun, [facility] [place] [facility] [address] [id number] [place] [address] Jun, [facility] [place] [facility] [address] [id number] [place] [address] Jun, [facility] [place] [facility] [address] [id number] [place] [address] May, [facility] [place] [facility] [address] [id number] [place] [address] May, [facility] [place] [facility] [address] [id number] [place] [address] May, [facility] [place] [facility] [address] [id number] [place] [address] May, [facility] [place] [facility] [address] [id number] [place] [address] Apr, [facility] [place] [facility] [address] [id number] [place] [address] Apr, [facility] [place] [facility] [address] [id number] [place] [address] Feb, [facility] [place] [facility] [address] [id number] [place] [address] January, [facility] [place] [facility] [address] [id number] [place] [address] January, [facility] [place] [facility] [address] [id number] [place] [address] January, [facility] [place] [facility] [address] [id number] [place] [address] January, [facility] [place] [facility] [address] [id number] [place] [address] January, [facility] [address] [id number] [place] [address] January, [facility] [place] [facility] [address] [id number] [place] [address] Dec, [facility] [place] [facility] [address] [id number] [place] [address] Dec, [facility] [place] [facility] [address] [id number] [place] [address] Dec, [facility] [place] [facility] [address] [id number] [place] [address] Dec, [facility] [place] [facility] [address] [id number] [place] [address] Dec, [facility] [place] [facility] [address] [id number] [place] [address] Dec, [facility] [address] [id number] [place] [address] Dec, [facility] [place] [facility] [address] [id number] [place] [address] Dec, [facility] [place] [facility] [address] [id number] [place] [address] Nov, [facility] [place] [facility] [address] [id number] [place] [address] Nov, [facility] [place] [facility] [address] [id number] [place] [address] Nov, [facility] [place] [facility] [address] [id number] [place] [address] Nov, [facility] [place] [facility] [address] [id number] [place] [address] Nov, [facility] [place] [facility] [address] [id number] [place] [address] Nov, [facility] [place] [facility] [address] [id number] [place] [address] Nov, [facility] [place] [facility] [address] [id number] [place] [address] Oct, [facility] [place] [facility] [address] [id number] [place] [address] Oct, [facility] [place] [facility] [address] [id number] [place] [address] Oct, [facility] [place] [facility] [address] [id number] [place] [address] Oct, [facility] [place] [facility] [address] [id number] [place] [address] Sep, [facility] [place] [facility] [address] [id number] [place] [address] Sep, [facility] [place] [facility] [address] [id number] [place] [address] Sep, [facility] [place] [facility] [address] [id number] [place] [address] Sep, [facility] [place] [facility] [address] [id number] [place] [address] Aug, [facility] [place] [facility] [address] [id number] [place] [address] Aug, [facility] [place] [facility] [address] [id number] [place] [address] Jul, [facility] [place] [facility] [address] [id number] [place] [address] Jul, [facility] [place] [facility] [address] [id number] [place] [address] Jun, [facility] [place] [facility] [address] [id number] [place] [address] Jun, [facility] [place] [facility] [address] [id number] [place] [address] Jun, [facility] [address] [id number] [place] [address] May, [facility] [address] [id number] [place] [address] Apr, [facility] [address] [id number] [place] [address] Apr, [facility] [address] [id number] [place] [address] Mar, [facility] [address] [id number] [place] [address] Feb, [facility] [address] [id number] [place] [address] Feb, [facility] [address] [id number] [place] [address] January, [facility] [address] [id number] [place] [address] January, [facility] [address] [id number] [place] [address] Dec, [facility] [address] [id number] [place] [address] Dec, [facility] [address] [id number] [place] [address] Dec, [facility] [address] [id number] [place] [address] Dec, [facility] [address] [id number] [place] [address] Nov, [facility] [address] [id number] [place] [address] Nov, [facility] [address] [id number] [place] [address] Oct, [facility] [address] [id number] [place] [address] Oct, [facility] [place] [facility] [address] [id number] [place] [address] Oct, [facility] [place] [facility] [address] [id number] [place] [address] Sep, [facility] [place] [facility] [address] [id number] [place] [address] Sep, [facility] [place] [facility] [address] [id number] [place] [address] Sep, [facility] [place] [facility] [address] [id number] [place] [address] Sep, [facility] [place] [facility] [address] [id number] [place] [address] Sep, [facility] [place] [facility] [address] [id number] [place] [address] Aug, [facility] [place] [facility] [address] [id number] [place] [address] Aug, [facility] [place] [facility] [address] [id number] [place] [address] Aug, [facility] [place] [facility] [address] [id number] [place] [address] Aug, [facility] [place] [facility] [address] [id number] [place] [address] Jul, [facility] [place] [facility] [address] [id number] [place] [address] Jul, [facility] [place] [facility] [address] [id number] [place] [address] Jul, [facility] [place] [facility] [address] [id number] [place] [address] Jul, [facility] [place] [facility] [address] [id number] [place] [address] 22 Jun, 2012 [facility] [place] [facility] [address] [id number] [place] [address] 19 Jun, 2012 [facility] [place] [facility] [address] [id number] [place] [address] 08 Jun, 2012 [facility] [place] [facility] [address] [id number] [place] [address] 05 Jun, 2012 [facility] [place] [facility] [address] [id number] [place] [address] 02 Jun, 2012 [facility] [place] [facility] [address] [id number] [place] [address] 24 May, 2012 [facility] [place] [facility] [address] [id number] [place] [address] 13 May, 2012 [facility] [place] [facility] [address] [id number] [place] [address] 12 May, 2012 [facility] [place] [facility] [address] [id number] [place] [address] 11 May, 2011 [facility] [place] [facility] [address] [id number] [place] [address] 10 May, 2012 [facility] [place] [facility] [address] [id number] [place] [address] 06 May, 2012 [facility] [place] [facility] [address] [id number] [place] [address] 05 May, 2011 [facility] [place] [facility] [address] [id number] [place] [address] 30 Apr, 2012 [facility] [place] [facility] [address] [id number] [place] [address] 28 Apr, 2012 [facility] [place] [facility] [address] [id number] [place] [address] Apr, [facility] [place] [facility] [address] [id number] [place] [address] 24 Apr, 2012 [facility] [place] [facility] [address] [id number] [place] [address] Apr, [facility] [place] [facility] [address] [id number] [place] [address] Apr, [facility] [place] [facility] [address] [id number] [place] [address] Apr, [facility] [place] [facility] [address] [id number] [place] [address] Apr, [facility] [place] [facility] [address] [id number] [place] [address] Mar, [facility] [place] [facility] [address] [id number] [place] [address] Mar, [facility] [place] [facility] [address] [id number] [place] [address] Mar, [facility] [place] [facility] [address] [id number] [place] [address] Feb, [facility] [place] [facility] [address] [id number] [place] [address] January, [facility] [place] [facility] [address] [id number] [place] [address] January, [facility] [place] [facility] [address] [id number] [place] [address] January, [facility] [place] [facility] [address] [id number] [place] [address] Dec, [facility] [place] [facility] [address] [id number] [place] [address] Dec, [facility] [place] [facility] [address] [id number] [place] [address] Dec, [facility] [place] [facility] [address] [id number] [place] [address] Dec, [facility] [place] [facility] [address] [id number] [place] [address] Dec, [facility] [address] [facility] [id number] [place] [address] Dec, IMMUNIZATIONS No Known Immunizations SOCIAL HISTORY [...] 04/02/2012 Surgical History appendectomy age 10 at [facility] Surgical History cholecystectomy-[facility] 2007 Surgical History coronary artery bypass graft LAD 02/2012 Surgical History heart cath x2 after bypass, pt has 5 stents Hospitalization History Chest pain, dizziness, renal insuff, heat cath showed CAD ([facility]) 01/03/2012 Hospitalization History CABG ([facility]) Dr. Banks 02/2012
--- OUTSIDE RECORDS SUMMARY | 2019-05-03 09:21 | XMS REPORT ---
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.10 Active 4049322425469 Problem Chronic fatigue R53.82 Active 71550420 Problem Vertigo R42 Active 437330643 Problem Anemia, unspecified type D64.9 Active 213180205 Problem Iron deficiency anemia, unspecified iron deficiency anemia type D50.9 Active 44005740 Problem Mixed hyperlipidemia E78.2 Active 694783939 ALLERGIES No Information ENCOUNTERS Encounter Location Date Diagnosis [facility] [id number] [place] [address] Mar, [facility] [id number] [place] [address] Mar, Chest wall pain R07.89 [facility] [id number] [place] [address] Feb, Chest wall pain R07.89 [facility] [id number] [place] [address] Feb, Chest wall pain R07.89 [facility] [id number] [place] [address] Feb, [facility] [id number] [place] [address] Feb, Chest wall pain R07.89 [facility] [address] [facility] [id number] [address] January, Chest wall pain R07.89 and High risk medication use Z79.899 [facility] [address] [facility] [id number] [place] [address] January, Chest wall pain R07.89 [facility] [id number] [place] [address] January, Chest wall pain R07.89 [facility] [id number] [place] [address] Dec, Chest wall pain R07.89 [facility] [id number] [place] [address] Nov, Chest wall pain R07.89 [facility] [id number] [place] [address] Nov, [facility] [id number] [place] [address] Oct, Chest wall pain R07.89 [facility] [id number] [place] [address] Oct, Encounter for immunization Z23 [facility] [id number] [place] [address] Sep, [facility] [id number] [place] [address] Sep, Chest wall pain R07.89 [facility] [address] [address] Aug, Chest wall pain R07.89 [facility] [id number] [place] [address] Jul, Chest wall pain R07.89 [facility] [id number] [place] [address] Jun, Chest wall pain R07.89 [facility] [address] [address] Jun, [facility] [id number] [place] [address] Jun, Encounter for immunization Z23 [facility] [id number] [place] [address] Jun, Chest wall pain R07.89 [facility] [id number] [place] [address] Jun, Encounter for immunization Z23 [facility] [id number] [place] [address] May, [facility] [id number] [place] [address] May, Medicare annual wellness visit, initial Z00.00 ; Chest wall pain R07.89 ; Mixed hyperlipidemia E78.2 ; Coronary artery disease involving ely shoshone coronary artery of ely shoshone heart without angina pectoris I25.10 ; History of smoking Z87.891 and Chronic kidney disease N18.9 [facility] [id number] [place] [address] May, Chest wall pain R07.89 [facility] [id number] [place] [address] Apr, Chest wall pain R07.89 [facility] [address] [address] Apr, [facility] [address] [address] Apr, Chest wall pain R07.89 ; Chronic kidney disease N18.9 ; Iron deficiency anemia, unspecified iron deficiency anemia type D50.9 ; Chronic fatigue R53.82 ; Coronary artery disease involving ely shoshone coronary artery of ely shoshone heart without angina pectoris I25.10 and Anemia, unspecified type D64.9 [facility] [id number] [place] [address] Apr, Chest wall pain R07.89 [facility] [id number] [place] [address] Mar, Chest wall pain R07.89 [facility] [id number] [place] [address] Feb, Chest wall pain R07.89 [facility] [id number] [place] [address] January, Chest wall pain R07.89 [facility] [id number] [place] [address] Dec, Chest wall pain R07.89 ; Coronary artery disease involving ely shoshone coronary artery of ely shoshone heart without angina pectoris I25.10 and Vertigo R42 [facility] [id number] [place] [address] Dec, Chest wall pain R07.89 [facility] [id number] [place] [address] Nov, Chest wall pain R07.89 [facility] [id number] [place] [address] Oct, Chest wall pain R07.89 [facility] [id number] [place] [address] Sep, Chest wall pain R07.89 and Pleurodynia R07.81 [facility] [id number] [place] [address] Sep, [facility] [id number] [place] [address] Sep, Chest wall pain R07.89 and Sore throat J02.9 [facility] [id number] [place] [address] Sep, [facility] [id number] [place] [address] Sep, Sore throat J02.9 and Acute nasopharyngitis J00 [facility] [id number] [place] [address] Sep, [facility] [id number] [place] [address] Aug, Chest wall pain R07.89 [facility] [id number] [place] [address] Jul, Chest wall pain R07.89 [facility] [id number] [place] [address] Jul, [facility] [id number] [place] [address] Jul, Chest wall pain R07.89 [facility] [id number] [place] [address] Jul, Chest wall pain R07.89 ; Chronic fatigue R53.82 ; Anemia, unspecified type D64.9 ; Vertigo R42 and Coronary artery disease involving ely shoshone coronary artery of ely shoshone heart without angina pectoris I25.10 [facility] [id number] [place] [address] Jun, Chest wall pain R07.89 [facility] [id number] [place] [address] Apr, Chest wall pain R07.89 [facility] [id number] [place] [address] Apr, [facility] [id number] [place] [address] Apr, Dental abscess K04.7 [facility] [id number] [place] [address] Apr, [facility] [id number] [place] [address] Apr, Chest wall pain R07.89 [facility] [id number] [place] [address] Mar, Chest wall pain R07.89 [facility] [id number] [place] [address] 15 Feb, 2017 Chest wall pain R07.89 ; Lateral epicondylitis of right elbow M77.11 and Mixed hyperlipidemia E78.2 [facility] [id number] [place] [address] Feb, Chest wall pain R07.89 [facility] [id number] [place] [address] January, [facility] [id number] [place] [address] January, Chest wall pain R07.89 [facility] [id number] [place] [address] Dec, Chest wall pain R07.89 [facility] [id number] [place] [address] Nov, [facility] [place] [id number] [place] [address] Nov, Hypokalemia E87.6 [facility] [id number] [place] [address] Nov, Hypokalemia E87.6 and Iron deficiency anemia, unspecified iron deficiency anemia type D50.9 [facility] [id number] [place] [address] Nov, [facility] [id number] [place] [address] Nov, Nausea R11.0 and Hypovolemia E86.1 [place] [place] [id number] [place] [address] Nov, [facility] [address] [address] Nov, [facility] [id number] [place] [address] Nov, Chest wall pain R07.89 [facility] [id number] [place] [address] Nov, Bronchitis J40 [facility] [id number] [place] [address] Oct, Chest wall pain R07.89 [facility] [id number] [place] [address] Sep, Chest wall pain R07.89 [facility] [id number] [place] [address] Aug, Chest wall pain R07.89 [facility] [id number] [place] [address] Aug, Chest pain on breathing R07.1 [facility] [id number] [place] [address] Jul, [facility] [id number] [place] [address] Jun, [facility] [id number] [place] [address] May, Chest wall pain R07.89 ; Iron deficiency anemia, unspecified iron deficiency anemia type D50.9 ; Chronic kidney disease N18.9 and Encounter for immunization Z23 [facility] [id number] [place] [address] May, [facility] [id number] [place] [address] Apr, [facility] [id number] [place] [address] Mar, [facility] [id number] [place] [address] Mar, [facility] [id number] [place] [address] Feb, [facility] [address] [address] Feb, Iron deficiency anemia, unspecified iron deficiency anemia type D50.9 [facility] [address] [address] Feb, Dehydration E86.0 ; Diarrhea, unspecified type R19.7 ; Dizziness R42 and Other specified hypotension I95.89 [place] [place] [address] [address] Feb, Anemia, unspecified type D64.9 [facility] [place] [id number] [place] [address] January, Anemia, unspecified type D64.9 [facility] [address] [address] January, Paresthesia R20.2 [facility] [address] [address] January, Chest wall pain R07.89 [facility] [id number] [place] [address] Dec, Insomnia G47.00 [facility] [id number] [place] [address] Dec, Chest pain on breathing R07.1 [facility] [id number] [place] [address] Nov, Chest pain on breathing R07.1 [facility] [place] [id number] [place] [address] Oct, [facility] [id number] [place] [address] Oct, [facility] [place] [id number] [place] [address] Oct, Low back pain M54.5 and Chest wall pain R07.89 [facility] [id number] [place] [address] Oct, Pleurodynia R07.81 [facility] [address] [address] Sep, Pleurodynia R07.81 and Other nerve root and plexus disorders G54.8 [facility] [address] [address] Aug, Chronic kidney disease N18.9 ; Encounter for immunization Z23 ; Chest wall pain R07.89 ; Urinary frequency R35.0 and Vertigo R42 [facility] [id number] [place] [address] Aug, [facility] [id number] [place] [address] Jul, [facility] [id number] [place] [address] Jul, [facility] [id number] [place] [address] Jun, [facility] [id number] [place] [address] Jun, [facility] [id number] [place] [address] May, [facility] [id number] [place] [address] May, [facility] [address] [address] May, [facility] [id number] [place] [address] May, Coronary atherosclerosis of unspecified type of vessel, ely shoshone or graft 414.00 [facility] [address] [facility] [id number] [address] Apr, [facility] [address] [address] Apr, [facility] [address] [address] Apr, [facility] [id number] [place] [address] Apr, [facility] [address] [place] [address] Apr, [facility] [address] [place] [address] Apr, Coronary atherosclerosis of unspecified type of vessel, ely shoshone or graft 414.00 and Left-sided chest wall pain 786.52 [facility] [id number] [place] [address] Mar, [facility] [address] [address] Mar, [facility] [address] [place] [address] Feb, [facility] [address] [address] Feb, [facility] [address] [address] January, [facility] [address] [address] January, [facility] [id number] [place] [address] January, [facility] [address], [place] [address] January, Neuropathic pain of chest 353.8 [facility] [id number] [place] [address] 14 Dec, 2014 [facility] [place] [facility] [address] [facility] [id number] [place] [address] Dec, [facility] [place] [facility] [address] [facility] [id number] [place] [address] Nov, [facility] [place] [facility] [address] [facility] [id number] [place] [address] Nov, [facility] [place] [facility] [address] [facility] [id number] [place] [address] Nov, [facility] [place] [facility] [address] [facility] [id number] [place] [address] Nov, [facility] [place] [facility] [address] [facility] [id number] [place] [address] Nov, [facility] [place] [facility] [address] [place] [address] Nov, [facility] [place] [facility] [address] [facility] [id number] [place] [address] Oct, [facility] [place] [facility] [id number] [place] [address] Oct, [facility] [place] [facility] [id number] [place] [address] Oct, [facility] [place] [facility] [address] [place] [address] Oct, [facility] [place] [facility] [address] [facility] [id number], [place] [address] Oct, [facility] [place] [facility] [address] [facility] [id number] [place] [address] Oct, [facility] [place] [facility] [address] [facility] [id number], [place] [address] Sep, [facility] [place] [facility] [address] [facility] [id number], [place] [address] Sep, [facility] [place] [facility] [address] [id number] [place] [address] Sep, [facility] [place] [facility] [address] [id number] [place] [address] Sep, [facility] [place] [facility] [address] [id number] [place] [address] Aug, [facility] [place] [facility] [address] [id number] [place] [address] Aug, [facility] [place] [facility] [address] [id number] [place] [address] Aug, [facility] [place] [facility] [address] [id number] [place] [address] Aug, [facility] [place] [facility] [address] [id number] [place] [address] Aug, [facility] [place] [facility] [address] [id number] [place] [address] Aug, [facility] [place] [facility] [address] [id number] [place] [address] Aug, [facility] [place] [facility] [address] [id number] [place] [address] Aug, [facility] [place] [facility] [address] [id number] [place] [address] Aug, [facility] [place] [facility] [address] [id number] [place] [address] Aug, [facility] [place] [facility] [address] [id number] [place] [address] Jul, [facility] [place] [facility] [address] [id number] [place] [address] Jul, [facility] [place] [facility] [address] [id number] [place] [address] Jul, [facility] [place] [facility] [address] [id number], [place] [address] Jul, [facility] [place] [facility] [address] [id number] [place] [address] Jun, [facility] [place] [facility] [address] [id number] [place] [address] Jun, [facility] [place] [facility] [address] [id number] [place] [address] Jun, [facility] [place] [facility] [address] [id number] [place] [address] Jun, [facility] [place] [facility] [address] [id number] [place] [address] May, [facility] [place] [facility] [address] [id number] [place] [address] May, [facility] [place] [facility] [address] [id number] [place] [address] May, [facility] [place] [facility] [address] [id number] [place] [address] May, [facility] [place] [facility] [address] [id number] [place] [address] Apr, [facility] [place] [facility] [address] [id number] [place] [address] Apr, [facility] [place] [facility] [address] [id number] [place] [address] Feb, [facility] [place] [facility] [address] [id number] [place] [address] January, [facility] [place] [facility] [address] [id number] [place] [address] January, [facility] [place] [facility] [address] [id number] [place] [address] January, [facility] [place] [facility] [address] [id number] [place] [address] January, [facility] [place] [facility] [address] [id number] [place] [address] January, [facility] [address] [id number] [place] [address] January, [facility] [place] [facility] [address] [id number] [place] [address] Dec, [facility] [place] [facility] [address] [id number] [place] [address] Dec, [facility] [place] [facility] [address] [id number] [place] [address] Dec, [facility] [place] [facility] [address] [id number] [place] [address] Dec, [facility] [place] [facility] [address] [id number] [place] [address] Dec, [facility] [place] [facility] [address] [id number] [place] [address] Dec, [facility] [address] [id number] [place] [address] Dec, [facility] [place] [facility] [address] [id number] [place] [address] Dec, [facility] [place] [facility] [address] [id number] [place] [address] Nov, [facility] [place] [facility] [address] [id number] [place] [address] Nov, [facility] [place] [facility] [address] [id number] [place] [address] Nov, [facility] [place] [facility] [address] [id number] [place] [address] Nov, [facility] [place] [facility] [address] [id number] [place] [address] Nov, [facility] [place] [facility] [address] [id number] [place] [address] Nov, [facility] [place] [facility] [address] [id number] [place] [address] Nov, [facility] [place] [facility] [address] [id number] [place] [address] Oct, [facility] [place] [facility] [address] [id number] [place] [address] Oct, [facility] [place] [facility] [address] [id number] [place] [address] Oct, [facility] [place] [facility] [address] [id number] [place] [address] Oct, [facility] [place] [facility] [address] [id number] [place] [address] Sep, [facility] [place] [facility] [address] [id number] [place] [address] Sep, [facility] [place] [facility] [address] [id number] [place] [address] Sep, [facility] [place] [facility] [address] [id number] [place] [address] Sep, [facility] [place] [facility] [address] [id number] [place] [address] Aug, [facility] [place] [facility] [address] [id number] [place] [address] Aug, [facility] [place] [facility] [address] [id number] [place] [address] Jul, [facility] [place] [facility] [address] [id number] [place] [address] Jul, [facility] [place] [facility] [address] [id number] [place] [address] Jun, [facility] [place] [facility] [address] [id number] [place] [address] Jun, [facility] [place] [facility] [address] [id number] [place] [address] Jun, [facility] [address] [id number] [place] [address] May, [facility] [address] [id number] [place] [address] Apr, [facility] [address] [id number] [place] [address] Apr, [facility] [address] [id number] [place] [address] Mar, [facility] [address] [id number] [place] [address] Feb, [facility] [address] [id number] [place] [address] Feb, [facility] [facility] [address] [id number] [place] [address] January, [facility] [address] [id number] [place] [address] January, [facility] [address] [id number] [place] [address] Dec, [facility] [address] [id number] [place] [address] Dec, [facility] [address] [id number] [place] [address] Dec, [facility] [address] [id number] [place] [address] Dec, [facility] [address] [id number] [place] [address] Nov, [facility] [address] [id number] [place] [address] Nov, [facility] [address] [id number] [place] [address] Oct, [facility] [address] [id number] [place] [address] Oct, [facility] [place] [facility] [address] [id number] [place] [address] Oct, [facility] [place] [facility] [address] [id number] [place] [address] Sep, [facility] [place] [facility] [address] [id number] [place] [address] Sep, [facility] [place] [facility] [address] [id number] [place] [address] Sep, [facility] [place] [facility] [address] [id number] [place] [address] Sep, [facility] [place] [facility] [address] [id number] [place] [address] Sep, [facility] [place] [facility] [address] [id number] [place] [address] Aug, [facility] [place] [facility] [address] [id number] [place] [address] Aug, [facility] [place] [facility] [address] [id number] [place] [address] Aug, [facility] [place] [facility] [address] [id number] [place] [address] Aug, [facility] [place] [facility] [address] [id number] [place] [address] Jul, [facility] [place] [facility] [address] [id number] [place] [address] Jul, [facility] [place] [facility] [address] [id number] [place] [address] Jul, [facility] [place] [facility] [address] [id number] [place] [address] Jul, [facility] [place] [facility] [address] [id number] [place] [address] 22 Jun, 2012 [facility] [place] [facility] [address] [id number] [place] [address] 19 Jun, 2012 [facility] [place] [facility] [address] [id number] [place] [address] 08 Jun, 2012 [facility] [place] [facility] [address] [id number] [place] [address] 05 Jun, 2012 [facility] [place] [facility] [address] [id number] [place] [address] 02 Jun, 2012 [facility] [place] [facility] [address] [id number] [place] [address] 24 May, 2012 [facility] [place] [facility] [address] [id number] [place] [address] 13 May, 2012 [facility] [place] [facility] [address] [id number] [place] [address] 12 May, 2012 [facility] [place] [facility] [address] [id number] [place] [address] 11 May, 2011 [facility] [place] [facility] [address] [id number] [place] [address] 10 May, 2012 [facility] [place] [facility] [address] [id number] [place] [address] 06 May, 2012 [facility] [place] [facility] [address] [id number] [place] [address] 05 May, 2011 [facility] [place] [facility] [address] [id number] [place] [address] 30 Apr, 2012 [facility] [place] [facility] [address] [id number] [place] [address] 28 Apr, 2012 [facility] [place] [facility] [address] [id number] [place] [address] Apr, [facility] [place] [facility] [address] [id number] [place] [address] 24 Apr, 2012 [facility] [place] [facility] [address] [id number] [place] [address] Apr, [facility] [place] [facility] [address] [id number] [place] [address] Apr, [facility] [place] [facility] [address] [id number] [place] [address] Apr, [facility] [place] [facility] [address] [id number] [place] [address] Apr, [facility] [place] [facility] [address] [id number] [place] [address] Mar, [facility] [place] [facility] [address] [id number] [place] [address] Mar, [facility] [place] [facility] [address] [id number] [place] [address] Mar, [facility] [place] [facility] [address] [id number] [place] [address] Feb, [facility] [place] [facility] [address] [id number] [place] [address] January, [facility] [place] [facility] [address] [id number] [place] [address] January, [facility] [place] [facility] [address] [id number] [place] [address] January, [facility] [place] [facility] [address] [id number] [place] [address] Dec, [facility] [place] [facility] [address] [id number] [place] [address] Dec, [facility] [place] [facility] [address] [id number] [place] [address] Dec, [facility] [place] [facility] [address] [id number] [place] [address] Dec, [facility] [place] [facility] [address] [id number] [place] [address] Dec, [facility] [address] [facility] [id number] [place] [address] Dec, IMMUNIZATIONS No Known Immunizations SOCIAL HISTORY [...] 04/02/2012 Surgical History appendectomy age 10 at [facility] Surgical History cholecystectomy-[facility] 2007 Surgical History coronary artery bypass graft LAD 02/2012 Surgical History heart cath x2 after bypass, pt has 5 stents Hospitalization History Chest pain, dizziness, renal insuff, heat cath showed CAD ([facility]) 01/03/2012 Hospitalization History CABG ([facility]) Dr. Banks 02/2012
--- OUTSIDE RECORDS SUMMARY | 2019-05-03 09:22 | XMS REPORT ---
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 Active 1042273341698 Problem Chronic fatigue R53.82 Active 44134397 Problem Vertigo R42 Active 909823469 Problem Anemia, unspecified type D64.9 Active 276303293 Problem Iron deficiency anemia, unspecified iron deficiency anemia type D50.9 Active 81547039 Problem Mixed hyperlipidemia E78.2 Active 580005936 ALLERGIES No Information ENCOUNTERS Encounter Location Date Diagnosis [place] [id number] [place] [address] Feb, Chest wall pain R07.89 [facility] [id number] [place] [address] Feb, Chest wall pain R07.89 [facility] [id number] [place] [address] Feb, [facility] [id number] [place] [address] Feb, Chest wall pain R07.89 [facility] [id number] [place] [address] January, Chest wall pain R07.89 and High risk medication use Z79.899 [place] [address] [place] [id number] [place] [address] January, Chest wall pain R07.89 [facility] [id number] [place] [address] January, Chest wall pain R07.89 [facility] [id number] [place] [address] Dec, Chest wall pain R07.89 [facility] [id number] [place] [address] Nov, Chest wall pain R07.89 [facility] [id number] [place] [address] Nov, [facility] [id number] [place] [address] Oct, Chest wall pain R07.89 [facility] [id number] [place] [address] Oct, Encounter for immunization Z23 [facility] [id number] [place] [address] Sep, [facility] [id number] [place] [address] Sep, Chest wall pain R07.89 [facility] [id number] [place] [address] Aug, Chest wall pain R07.89 [facility] [id number] [place] [address] Jul, Chest wall pain R07.89 [facility] [id number] [place] [address] Jun, Chest wall pain R07.89 [facility] [id number] [place] [address] Jun, [facility] [id number] [place] [address] Jun, Encounter for immunization Z23 [facility] [address] [address] Jun, Chest wall pain R07.89 [facility] [id number] [place] [address] Jun, Encounter for immunization Z23 [facility] [id number] [place] [address] May, [facility] [id number] [place] [address] May, Medicare annual wellness visit, initial Z00.00 ; Chest wall pain R07.89 ; Mixed hyperlipidemia E78.2 ; Coronary artery disease involving afognak coronary artery of afognak heart without angina pectoris I25.10 ; History of smoking Z87.891 and Chronic kidney disease N18.9 [place] [id number] [place] [address] May, Chest wall pain R07.89 [place] [address] [place] [id number] [place] [address] Apr, Chest wall pain R07.89 [place] [address] [place] [id number] [place] [address] Apr, [place] [id number] [place] [address] Apr, Chest wall pain R07.89 ; Chronic kidney disease N18.9 ; Iron deficiency anemia, unspecified iron deficiency anemia type D50.9 ; Chronic fatigue R53.82 ; Coronary artery disease involving afognak coronary artery of afognak heart without angina pectoris I25.10 and Anemia, unspecified type D64.9 [place] [address] [place] [id number] [place] [address] Apr, Chest wall pain R07.89 [place] [id number] [place] [address] Mar, Chest wall pain R07.89 [place] [address] [place] [id number] [address] Feb, Chest wall pain R07.89 [facility] [id number] [place] [address] January, Chest wall pain R07.89 [facility] [id number] [place] [address] Dec, Chest wall pain R07.89 ; Coronary artery disease involving afognak coronary artery of afognak heart without angina pectoris I25.10 and Vertigo R42 [facility] [id number] [place] [address] Dec, Chest wall pain R07.89 [facility] [id number] [place] [address] Nov, Chest wall pain R07.89 [facility] [id number] [place] [address] Oct, Chest wall pain R07.89 [facility] [id number] [place] [address] Sep, Chest wall pain R07.89 and Pleurodynia R07.81 [facility] [id number] [place] [address] Sep, [facility] [id number] [place] [address] Sep, Chest wall pain R07.89 and Sore throat J02.9 [facility] [id number] [place] [address] Sep, [facility] [id number] [place] [address] Sep, Sore throat J02.9 and Acute nasopharyngitis J00 [facility] [id number] [place] [address] Sep, [facility] [id number] [address] Aug, Chest wall pain R07.89 [facility] [id number] [place] [address] Jul, Chest wall pain R07.89 [facility] [id number] [place] [address] Jul, [facility] [id number] [place] [address] Jul, Chest wall pain R07.89 [facility] [id number] [place] [address] Jul, Chest wall pain R07.89 ; Chronic fatigue R53.82 ; Anemia, unspecified type D64.9 ; Vertigo R42 and Coronary artery disease involving afognak coronary artery of afognak heart without angina pectoris I25.10 [facility] [id number] [place] [address] Jun, Chest wall pain R07.89 [facility] [id number] [place] [address] Apr, Chest wall pain R07.89 [facility] [id number] [place] [address] Apr, [facility] [address] [address] Apr, Dental abscess K04.7 [facility] [address] [address] Apr, [facility] [id number] [place] [address] Apr, Chest wall pain R07.89 [facility] [address] [address] Mar, Chest wall pain R07.89 [facility] [id number] [place] [address] 15 Feb, 2017 Chest wall pain R07.89 ; Lateral epicondylitis of right elbow M77.11 and Mixed hyperlipidemia E78.2 [facility] [id number] [place] [address] 07 Feb, 2017 Chest wall pain R07.89 [facility] [address] [id number] [place] [address] January, [facility] [id number] [place] [address] January, Chest wall pain R07.89 [facility] [id number] [place] [address] Dec, Chest wall pain R07.89 [place] [address] [place] [id number] [place] [address] Nov, [place] [address] [place] [id number] [place] [address] Nov, Hypokalemia E87.6 [place] [address] [place] [id number] [place] [address] Nov, Hypokalemia E87.6 and Iron deficiency anemia, unspecified iron deficiency anemia type D50.9 [place] [address] [place] [id number] [place] [address] Nov, [facility] [id number] [place] [address] Nov, Nausea R11.0 and Hypovolemia E86.1 [facility] [id number] [place] [address] Nov, [place] [address] [place] [id number] [place] [address] 13 Nov, 2016 [place] [address] [place] [id number] [place] [address] 10 Nov, 2016 Chest wall pain R07.89 [facility] [address] [address] Nov, Bronchitis J40 [facility] [id number] [place] [address] Oct, Chest wall pain R07.89 [facility] [id number] [place] [address] Sep, Chest wall pain R07.89 [facility] [id number] [place] [address] Aug, Chest wall pain R07.89 [facility] [id number] [place] [address] Aug, Chest pain on breathing R07.1 [facility] [id number] [place] [address] Jul, [facility] [id number] [place] [address] Jun, [facility] [id number] [place] [address] May, Chest wall pain R07.89 ; Iron deficiency anemia, unspecified iron deficiency anemia type D50.9 ; Chronic kidney disease N18.9 and Encounter for immunization Z23 [facility] [address] [address] May, [facility] [id number] [place] [address] Apr, [facility] [id number] [place] [address] Mar, [facility] [id number] [place] [address] Mar, [facility] [id number] [place] [address] Feb, [facility] [id number] [place] [address] Feb, Iron deficiency anemia, unspecified iron deficiency anemia type D50.9 [facility] [id number] [place] [address] 07 Feb, 2016 Dehydration E86.0 ; Diarrhea, unspecified type R19.7 ; Dizziness R42 and Other specified hypotension I95.89 [place] [address] [place] [id number] [place] [address] Feb, Anemia, unspecified type D64.9 [place] [address] [id number] [place] [address] January, Anemia, unspecified type D64.9 [place] [address] [address] January, Paresthesia R20.2 [place] [address] [address] January, Chest wall pain R07.89 [place] [address] [place] [id number] [place] [address] Dec, Insomnia G47.00 [place] [address] [address] Dec, Chest pain on breathing R07.1 [place] [address] [id number] [place] [address] Nov, Chest pain on breathing R07.1 [place] [address] [address] [id number] [place] [address] Oct, [place] [address] [address] [id number] [place] [address] Oct, [place] [address] [address] Oct, Low back pain M54.5 and Chest wall pain R07.89 [place] [address] [address] Oct, Pleurodynia R07.81 [facility] [id number] [place] [address] Sep, Pleurodynia R07.81 and Other nerve root and plexus disorders G54.8 [facility] [id number] [place] [address] Aug, Chronic kidney disease N18.9 ; Encounter for immunization Z23 ; Chest wall pain R07.89 ; Urinary frequency R35.0 and Vertigo R42 [facility] [id number] [place] [address] Aug, [facility] [address] [address] Jul, [facility] [id number] [place] [address] Jul, [facility] [address] [address] Jun, [facility] [id number] [place] [address] Jun, [facility] [id number] [place] [address] May, [facility] [id number] [place] [address] May, [facility] [place] [id number] [place] [address] May, [facility] [place] [id number] [place] [address] May, Coronary atherosclerosis of unspecified type of vessel, afognak or graft 414.00 [facility] [place] [id number] [place] [address] Apr, [facility] [place] [id number] [place] [address] Apr, [facility] [place] [address] [facility] [id number] [address] Apr, [facility] [address], [place] [address] Apr, [facility] [place] [address] [facility] [id number] [address] Apr, [facility] [place] [id number] [place] [address] Apr, Coronary atherosclerosis of unspecified type of vessel, afognak or graft 414.00 and Left-sided chest wall pain 786.52 [facility] [id number] [place] [address] Mar, [facility] [place] [id number] [address] Mar, [facility] [place] [id number] [place] [address] Feb, [facility] [address] [address] Feb, [facility] [place] [address], [place] [address] January, [facility] [address] [address] January, [facility] [address] [address] January, [facility] [address], [place] [address] January, Neuropathic pain of chest 353.8 [facility] [address] [address] Dec, [facility] [id number] [address] Dec, [facility] [address] [address] Nov, [facility] [place] [facility] [address] [id number] [place] [address] Nov, [facility] [place] [facility] [address] [id number] [place] [address] Nov, [facility] [place] [facility] [address] [facility] [id number] [place] [address] Nov, [facility] [place] [facility] [address] [id number] [place] [address] Nov, [facility] [place] [facility] [address] [id number] [place] [address] Nov, [facility] [place] [facility] [address] [id number] [place] [address] Oct, [facility] [place] [facility] [address] [facility] [id number] [place] [address] Oct, [facility] [place] [facility] [address] [id number] [place] [address] Oct, [facility] [place] [facility] [address] [id number] [place] [address] Oct, [facility] [place] [facility] [address] [facility] [id number] [place] [address] Oct, [facility] [place] [facility] [address] [id number] [address] Oct, [facility] [place] [facility] [address] [id number], [place] [address] Sep, [facility] [place] [facility] [address] [id number] [place] [address] Sep, [facility] [place] [facility] [address] [facility] [id number] [place] [address] Sep, [facility] [place] [facility] [address] [facility] [id number] [place] [address] Sep, [facility] [place] [facility] [address] [id number] [place] [address] Aug, [facility] [place] [facility] [address] [id number] [place] [address] Aug, [facility] [place] [facility] [address] [id number] [place] [address] Aug, [facility] [place] [facility] [address] [id number] [place] [address] Aug, [facility] [place] [facility] [address] [id number] [place] [address] Aug, [facility] [place] [facility] [address] [id number] [place] [address] Aug, [facility] [place] [facility] [address] [id number] [place] [address] Aug, [facility] [place] [facility] [address] [id number] [place] [address] Aug, [facility] [place] [facility] [address] [id number] [place] [address] Aug, [facility] [place] [facility] [address] [id number] [place] [address] Aug, [facility] [place] [facility] [address] [id number] [place] [address] Jul, [facility] [place] [facility] [address] [id number] [place] [address] Jul, [facility] [place] [facility] [address] [id number] [place] [address] Jul, [facility] [place] [facility] [address] [id number] [place] [address] Jul, [facility] [place] [facility] [address] [id number] [place] [address] Jun, [facility] [place] [facility] [address] [id number] [place] [address] Jun, [facility] [place] [facility] [address] [id number] [place] [address] Jun, [facility] [place] [facility] [address] [id number] [place] [address] Jun, [facility] [place] [facility] [address] [id number] [place] [address] May, [facility] [place] [facility] [address] [id number] [place] [address] May, [facility] [place] [facility] [address] [id number] [place] [address] May, [facility] [place] [facility] [address] [id number] [place] [address] May, [facility] [place] [facility] [address] [id number] [place] [address] Apr, [facility] [place] [facility] [address] [id number] [place] [address] Apr, [facility] [place] [facility] [address] [id number] [place] [address] Feb, [facility] [place] [facility] [address] [id number] [place] [address] January, [facility] [place] [facility] [address] [id number] [place] [address] January, [facility] [place] [facility] [address] [id number], [place] [address] January, [facility] [place] [facility] [address] [id number] [place] [address] January, [facility] [place] [facility] [address] [id number] [place] [address] January, [facility] [place] [facility] [address] [id number] [place] [address] January, [facility] [place] [facility] [address] [id number] [place] [address] Dec, [facility] [place] [facility] [address] [id number] [place] [address] Dec, [facility] [place] [facility] [address] [id number] [place] [address] Dec, [facility] [place] [facility] [address] [id number] [place] [address] Dec, [facility] [place] [facility] [address] [id number] [place] [address] Dec, [facility] [place] [facility] [address] [id number] [place] [address] Dec, [facility] [place] [facility] [address] [id number] [place] [address] Dec, [facility] [place] [facility] [address] [id number] [place] [address] Dec, [facility] [place] [facility] [address] [id number] [place] [address] Nov, [facility] [place] [facility] [address] [id number] [place] [address] Nov, [facility] [place] [facility] [address] [id number] [place] [address] Nov, [facility] [place] [facility] [address] [id number] [place] [address] Nov, [facility] [place] [facility] [address] [id number] [place] [address] Nov, [facility] [place] [facility] [address] [id number] [place] [address] Nov, [facility] [place] [facility] [address] [id number] [place] [address] Nov, [facility] [place] [facility] [address] [id number] [place] [address] Oct, [facility] [place] [facility] [address] [id number] [place] [address] Oct, [facility] [place] [facility] [address] [id number] [place] [address] Oct, [facility] [place] [facility] [address] [id number] [place] [address] Oct, [facility] [place] [facility] [address] [id number] [place] [address] Sep, [facility] [place] [facility] [address] [id number] [place] [address] Sep, [facility] [place] [facility] [address] [id number] [place] [address] Sep, [facility] [place] [facility] [address] [id number] [place] [address] Sep, [facility] [place] [facility] [address] [id number] [place] [address] Aug, [facility] [place] [facility] [address] [id number] [place] [address] Aug, [facility] [place] [facility] [address] [id number] [place] [address] Jul, [facility] [place] [facility] [address] [id number] [place] [address] Jul, [facility] [place] [facility] [address] [id number] [address] Jun, [facility] [place] [facility] [address] [id number] [place] [address] Jun, [facility] [place] [facility] [address] [id number] [place] [address] Jun, [facility] [place] [facility] [address] [id number], [place] [address] May, [facility] [place] [facility] [address] [id number], [place] [address] Apr, [facility] [address] [id number] [place] [address] Apr, [facility] [address] [id number] [place] [address] Mar, [facility] [address] [id number] [place] [address] Feb, [facility] [address] [id number] [place] [address] Feb, [facility] [address] [id number] [place] [address] January, [facility] [address] [id number] [place] [address] January, [facility] [address] [id number] [place] [address] Dec, [facility] [address] [facility] [id number] [place] [address] Dec, [facility] [address] [facility] [id number] [place] [address] Dec, [facility] [address] [facility] [id number] [place] [address] Dec, [facility] [address] [id number] [place] [address] Nov, [facility] [place] [facility] [address] [facility] [id number] [place] [address] Nov, [facility] [place] [facility] [address] [id number] [place] [address] Oct, [facility] [place] [facility] [address] [id number] [place] [address] Oct, [facility] [place] [facility] [address] [facility] [id number] [place] [address] Oct, [facility] [place] [facility] [address] [id number] [place] [address] Sep, [facility] [place] [facility] [address] [id number] [place] [address] Sep, [facility] [place] [facility] [address] [id number] [place] [address] Sep, [facility] [place] [facility] [address] [id number] [place] [address] Sep, [facility] [place] [facility] [address] [id number] [place] [address] Sep, [facility] [place] [facility] [address] [id number] [place] [address] Aug, [facility] [place] [facility] [address] [id number] [place] [address] Aug, [facility] [place] [facility] [address] [id number] [place] [address] Aug, [facility] [place] [facility] [address] [id number] [place] [address] Aug, [facility] [place] [facility] [address] [id number] [place] [address] Jul, [facility] [place] [facility] [address] [id number] [place] [address] Jul, [facility] [place] [facility] [address] [id number] [place] [address] Jul, [facility] [place] [facility] [address] [id number] [place] [address] Jul, [facility] [place] [facility] [address] [id number] [place] [address] Jun, [facility] [place] [facility] [address] [id number] [place] [address] Jun, [facility] [place] [facility] [address] [id number] [place] [address] 08 Jun, 2012 [facility] [place] [facility] [address] [id number] [place] [address] 05 Jun, 2012 [facility] [place] [facility] [address] [id number] [place] [address] Jun, [facility] [place] [facility] [address] [id number] [place] [address] 24 May, 2012 [facility] [place] [facility] [address] [id number] [place] [address] 13 May, 2012 [facility] [place] [facility] [address] [id number] [place] [address] 12 May, 2012 [facility] [place] [facility] [address] [id number] [place] [address] 11 May, 2012 [facility] [place] [facility] [address] [id number] [place] [address] 10 May, 2012 [facility] [place] [facility] [address] [id number] [place] [address] 06 May, 2012 [facility] [place] [facility] [address] [id number] [place] [address] 05 May, 2012 [facility] [place] [facility] [address] [id number] [place] [address] 30 Apr, 2012 [facility] [place] [facility] [address] [id number] [place] [address] Apr, [facility] [place] [facility] [address] [id number] [place] [address] Apr, [facility] [place] [facility] [address] [id number] [place] [address] Apr, [facility] [place] [facility] [address] [id number] [place] [address] Apr, [facility] [place] [facility] [address] [id number] [place] [address] Apr, [facility] [place] [facility] [id number] [address] Apr, [facility] [id number] [address] Apr, [facility] [id number] [address] Mar, [facility] [id number] [address] Mar, [facility] [id number] [address] Mar, [facility] [id number] [place] [address] Feb, [facility] [place] [id number] [address] January, [facility] [place] [id number] [address] January, [facility] [id number] [address] January, [facility] [place] [id number] [address] Dec, [facility] [place] [id number] [address] Dec, [facility] [place] [id number] [address] Dec, [facility] [place] [id number] [address] Dec, [facility] [place] [id number], [place] [address] Dec, [facility] [place] [id number] [address] Dec, IMMUNIZATIONS No Known Immunizations SOCIAL HISTORY [...] 04/02/2012 Surgical History appendectomy age 10 at [facility] Surgical History cholecystectomy-[facility]. [employer] Gonzalez 2007 Surgical History coronary artery bypass graft LAD 02/2012 Surgical History heart cath x2 after bypass, pt has 5 stents Hospitalization History Chest pain, dizziness, renal insuff, heat cath showed CAD ([facility]) 01/03/2012 Hospitalization History CABG ([facility]) Dr. Banks 02/2012
--- OUTSIDE RECORDS SUMMARY | 2019-05-03 09:23 | XMS REPORT ---
Author Author BELEM FUENTES Organization [facility] Address [address] [place] [address] Care Team Providers Care Estimator And Drafter Name Role Phone BELEM FUENTES Unavailable PROBLEMS Type Condition ICD9-CM Code EYB95-VT Code Onset Dates Condition Status SNOMED Code Problem Centrilobular emphysema J43.2 Active 57985646 Problem Chest wall pain R07.89 Active 922803750 Problem Chronic kidney disease N18.9 Active 762942503 Problem Coronary artery disease involving [place] coronary artery of [place] heart without angina pectoris I25.10 Active 8161886600006 Problem Chronic fatigue R53.82 Active 40894720 Problem Vertigo R42 Active 189548991 Problem Anemia, unspecified type D64.9 Active 255427775 Problem Iron deficiency anemia, unspecified iron deficiency anemia type D50.9 Active 19474230 Problem Mixed hyperlipidemia E78.2 Active 863287310 ALLERGIES No Information ENCOUNTERS Encounter Location Date Diagnosis [place] [id number] [place] [address] Feb, Chest wall pain R07.89 [facility] [id number] [place] [address] Feb, Chest wall pain R07.89 [facility] [id number] [place] [address] Feb, [facility] [id number] [place] [address] Feb, Chest wall pain R07.89 [facility] [id number] [place] [address] January, Chest wall pain R07.89 and High risk medication use Z79.899 [place] [address] [place] [id number] [place] [address] January, Chest wall pain R07.89 [facility] [id number] [place] [address] January, Chest wall pain R07.89 [facility] [id number] [place] [address] Dec, Chest wall pain R07.89 [facility] [id number] [place] [address] Nov, Chest wall pain R07.89 [facility] [id number] [place] [address] Nov, [facility] [id number] [place] [address] Oct, Chest wall pain R07.89 [facility] [id number] [place] [address] Oct, Encounter for immunization Z23 [facility] [id number] [place] [address] Sep, [facility] [id number] [place] [address] Sep, Chest wall pain R07.89 [facility] [id number] [place] [address] Aug, Chest wall pain R07.89 [facility] [id number] [place] [address] Jul, Chest wall pain R07.89 [facility] [id number] [place] [address] Jun, Chest wall pain R07.89 [facility] [id number] [place] [address] Jun, [facility] [id number] [place] [address] Jun, Encounter for immunization Z23 [facility] [address] [address] Jun, Chest wall pain R07.89 [facility] [id number] [place] [address] Jun, Encounter for immunization Z23 [facility] [id number] [place] [address] May, [facility] [id number] [place] [address] May, Medicare annual wellness visit, initial Z00.00 ; Chest wall pain R07.89 ; Mixed hyperlipidemia E78.2 ; Coronary artery disease involving [place] coronary artery of [place] heart without angina pectoris I25.10 ; History of smoking Z87.891 and Chronic kidney disease N18.9 [place] [id number] [place] [address] May, Chest wall pain R07.89 [place] [address] [place] [id number] [place] [address] Apr, Chest wall pain R07.89 [place] [address] [place] [id number] [place] [address] Apr, [place] [id number] [place] [address] Apr, Chest wall pain R07.89 ; Chronic kidney disease N18.9 ; Iron deficiency anemia, unspecified iron deficiency anemia type D50.9 ; Chronic fatigue R53.82 ; Coronary artery disease involving [place] coronary artery of [place] heart without angina pectoris I25.10 and Anemia, unspecified type D64.9 [place] [address] [place] [id number] [place] [address] Apr, Chest wall pain R07.89 [place] [id number] [place] [address] Mar, Chest wall pain R07.89 [place] [address] [place] [id number] [address] Feb, Chest wall pain R07.89 [facility] [id number] [place] [address] January, Chest wall pain R07.89 [facility] [id number] [place] [address] Dec, Chest wall pain R07.89 ; Coronary artery disease involving [place] coronary artery of [place] heart without angina pectoris I25.10 and Vertigo R42 [facility] [address] [place] [id number] [place] [address] Dec, Chest wall pain R07.89 [facility] [address] [id number] [place] [address] Nov, Chest wall pain R07.89 [facility] [address] [place] [id number] [place] [address] Oct, Chest wall pain R07.89 [facility] [id number] [place] [address] Sep, Chest wall pain R07.89 and Pleurodynia R07.81 [facility] [address] [id number] [place] [address] Sep, [facility] [id number] [place] [address] Sep, Chest wall pain R07.89 and Sore throat J02.9 [facility] [address] [id number] [place] [address] Sep, [facility] [id number] [place] [address] Sep, Sore throat J02.9 and Acute nasopharyngitis J00 [facility] [address] [place] [address] Sep, [facility] [id number] [address] Aug, Chest wall pain R07.89 [facility] [id number] [place] [address] Jul, Chest wall pain R07.89 [facility] [id number] [place] [address] Jul, [facility] [address] [id number] [place] [address] Jul, Chest wall pain R07.89 [facility] [address] [place] [id number] [place] [address] Jul, Chest wall pain R07.89 ; Chronic fatigue R53.82 ; Anemia, unspecified type D64.9 ; Vertigo R42 and Coronary artery disease involving [place] coronary artery of [place] heart without angina pectoris I25.10 [facility] [address] [place] [id number] [place] [address] Jun, Chest wall pain R07.89 [facility] [address] [place] [address] Apr, Chest wall pain R07.89 [facility] [address] [place] [id number] [place] [address] Apr, [facility] [address] [address] Apr, Dental abscess K04.7 [facility] [address] [address] Apr, [facility] [address] [id number] [place] [address] Apr, Chest wall pain R07.89 [facility] [address] [address] Mar, Chest wall pain R07.89 [facility] [address] [id number] [place] [address] 15 Feb, 2017 Chest wall pain R07.89 ; Lateral epicondylitis of right elbow M77.11 and Mixed hyperlipidemia E78.2 [facility] [address] [place] [id number] [place] [address] 07 Feb, 2017 Chest wall pain R07.89 [facility] [address] [place] [id number] [place] [address] January, [facility] [address] [place] [id number] [place] [address] January, Chest wall pain R07.89 [facility] [address] [id number] [place] [address] Dec, Chest wall pain R07.89 [place] [address] [place] [id number] [place] [address] Nov, [place] [address] [place] [id number] [place] [address] Nov, Hypokalemia E87.6 [place] [address] [place] [id number] [place] [address] Nov, Hypokalemia E87.6 and Iron deficiency anemia, unspecified iron deficiency anemia type D50.9 [place] [address] [place] [id number] [place] [address] Nov, [facility] [address] [place] [id number] [place] [address] Nov, Nausea R11.0 and Hypovolemia E86.1 [facility] [address] [place] [id number] [place] [address] Nov, [place] [address] [place] [id number] [place] [address] 13 Nov, 2016 [place] [address] [place] [id number] [place] [address] 10 Nov, 2016 Chest wall pain R07.89 [facility] [address] [address] Nov, Bronchitis J40 [facility] [address] [place] [id number] [place] [address] Oct, Chest wall pain R07.89 [facility] [id number] [place] [address] Sep, Chest wall pain R07.89 [facility] [address] [place] [id number] [place] [address] Aug, Chest wall pain R07.89 [facility] [address] [id number] [place] [address] Aug, Chest pain on breathing R07.1 [facility] [address] [id number] [place] [address] Jul, [facility] [id number] [place] [address] Jun, [facility] [id number] [place] [address] May, Chest wall pain R07.89 ; Iron deficiency anemia, unspecified iron deficiency anemia type D50.9 ; Chronic kidney disease N18.9 and Encounter for immunization Z23 [facility] [address] [address] May, [facility] [id number] [place] [address] Apr, [facility] [address] [id number] [place] [address] Mar, [facility] [id number] [place] [address] Mar, [facility] [address] [place] [address] Feb, [facility] [id number] [place] [address] Feb, Iron deficiency anemia, unspecified iron deficiency anemia type D50.9 [facility] [id number] [place] [address] 07 Feb, 2016 Dehydration E86.0 ; Diarrhea, unspecified type R19.7 ; Dizziness R42 and Other specified hypotension I95.89 [place] [address] [place] [id number] [place] [address] Feb, Anemia, unspecified type D64.9 [place] [address] [place] [id number] [place] [address] January, Anemia, unspecified type D64.9 [place] [address] [address] January, Paresthesia R20.2 [place] [address] [address] January, Chest wall pain R07.89 [place] [address] [place] [id number] [place] [address] Dec, Insomnia G47.00 [place] [address] [address] Dec, Chest pain on breathing R07.1 [place] [address] [place] [id number] [place] [address] Nov, Chest pain on breathing R07.1 [place] [address] [place] [id number] [place] [address] Oct, [place] [address] [place] [id number] [place] [address] Oct, [place] [address] [address] Oct, Low back pain M54.5 and Chest wall pain R07.89 [place] [address] [address] Oct, Pleurodynia R07.81 [facility] [id number] [place] [address] Sep, Pleurodynia R07.81 and Other nerve root and plexus disorders G54.8 [facility] [id number] [place] [address] Aug, Chronic kidney disease N18.9 ; Encounter for immunization Z23 ; Chest wall pain R07.89 ; Urinary frequency R35.0 and Vertigo R42 [facility] [id number] [place] [address] Aug, [facility] [address] [address] Jul, [facility] [id number] [place] [address] Jul, [facility] [address] [address] Jun, [facility] [id number] [place] [address] Jun, [facility] [id number] [place] [address] May, [facility] [id number] [place] [address] May, [facility] [id number] [place] [address] May, [facility] [id number] [place] [address] May, Coronary atherosclerosis of unspecified type of vessel, [place] or graft 414.00 [facility] [id number] [place] [address] Apr, [facility] [id number] [place] [address] Apr, [facility] [address] [facility] [id number] [address] Apr, [facility] [address] [address] Apr, [facility] [address] [facility] [id number] [address] Apr, [facility] [id number] [place] [address] Apr, Coronary atherosclerosis of unspecified type of vessel, [place] or graft 414.00 and Left-sided chest wall pain 786.52 [facility] [id number] [place] [address] Mar, [facility] [id number] [address] Mar, [facility] [id number] [place] [address] Feb, [facility] [address] [address] Feb, [facility] [address] [address] January, [facility] [address] [address] January, [facility] [address] [address] January, [facility] [address] [address] January, Neuropathic pain of chest 353.8 [facility] [address] [address] Dec, [facility] [address] [place] [id number] [address] Dec, [facility] [address], [place] [address] Nov, [facility] [place] [facility] [address] [id number] [place] [address] Nov, [facility] [place] [facility] [address] [id number] [place] [address] Nov, [facility] [place] [facility] [address] [facility] [id number] [place] [address] Nov, [facility] [place] [facility] [address] [id number] [place] [address] Nov, [facility] [place] [facility] [address] [id number] [place] [address] Nov, [facility] [place] [facility] [address] [id number] [place] [address] Oct, [facility] [place] [facility] [address] [facility] [id number] [place] [address] Oct, [facility] [place] [facility] [address] [id number] [place] [address] Oct, [facility] [place] [facility] [address] [id number] [place] [address] Oct, [facility] [place] [facility] [address] [facility] [id number] [place] [address] Oct, [facility] [place] [facility] [address] [id number], [place] [address] Oct, [facility] [place] [facility] [address] [id number], [place] [address] Sep, [facility] [place] [facility] [address] [id number] [place] [address] Sep, [facility] [place] [facility] [address] [facility] [id number] [place] [address] Sep, [facility] [place] [facility] [address] [facility] [id number] [place] [address] Sep, [facility] [place] [facility] [address] [id number] [place] [address] Aug, [facility] [place] [facility] [address] [id number] [place] [address] Aug, [facility] [place] [facility] [address] [id number] [place] [address] Aug, [facility] [place] [facility] [address] [id number] [place] [address] Aug, [facility] [place] [facility] [address] [id number] [place] [address] Aug, [facility] [place] [facility] [address] [id number] [place] [address] Aug, [facility] [place] [facility] [address] [id number] [place] [address] Aug, [facility] [place] [facility] [address] [id number] [place] [address] Aug, [facility] [place] [facility] [address] [id number] [place] [address] Aug, [facility] [place] [facility] [address] [id number] [place] [address] Aug, [facility] [place] [facility] [address] [id number] [place] [address] Jul, [facility] [place] [facility] [address] [id number] [place] [address] Jul, [facility] [place] [facility] [address] [id number] [place] [address] Jul, [facility] [place] [facility] [address] [id number] [place] [address] Jul, [facility] [place] [facility] [address] [id number] [place] [address] Jun, [facility] [place] [facility] [address] [id number] [place] [address] Jun, [facility] [place] [facility] [address] [id number] [place] [address] Jun, [facility] [place] [facility] [address] [id number] [place] [address] Jun, [facility] [place] [facility] [address] [id number] [place] [address] May, [facility] [place] [facility] [address] [id number] [place] [address] May, [facility] [place] [facility] [address] [id number] [place] [address] May, [facility] [place] [facility] [address] [id number] [place] [address] May, [facility] [place] [facility] [address] [id number] [place] [address] Apr, [facility] [place] [facility] [address] [id number] [place] [address] Apr, [facility] [place] [facility] [address] [id number] [place] [address] Feb, [facility] [place] [facility] [address] [id number] [place] [address] January, [facility] [place] [facility] [address] [id number] [place] [address] January, [facility] [place] [facility] [address] [id number] [address] January, [facility] [place] [facility] [address] [id number] [place] [address] January, [facility] [place] [facility] [address] [id number] [place] [address] January, [facility] [place] [facility] [address] [id number] [place] [address] January, [facility] [place] [facility] [address] [id number] [place] [address] Dec, [facility] [place] [facility] [address] [id number] [place] [address] Dec, [facility] [place] [facility] [address] [id number] [place] [address] Dec, [facility] [place] [facility] [address] [id number] [place] [address] Dec, [facility] [place] [facility] [address] [id number] [place] [address] Dec, [facility] [place] [facility] [address] [id number] [place] [address] Dec, [facility] [place] [facility] [address] [id number] [place] [address] Dec, [facility] [place] [facility] [address] [id number] [place] [address] Dec, [facility] [place] [facility] [address] [id number] [place] [address] Nov, [facility] [place] [facility] [address] [id number] [place] [address] Nov, [facility] [place] [facility] [address] [id number] [place] [address] Nov, [facility] [place] [facility] [address] [id number] [place] [address] Nov, [facility] [place] [facility] [address] [id number] [place] [address] Nov, [facility] [place] [facility] [address] [id number] [place] [address] Nov, [facility] [place] [facility] [address] [id number] [place] [address] Nov, [facility] [place] [facility] [address] [id number] [place] [address] Oct, [facility] [place] [facility] [address] [id number] [place] [address] Oct, [facility] [place] [facility] [address] [id number] [place] [address] Oct, [facility] [place] [facility] [address] [id number] [place] [address] Oct, [facility] [place] [facility] [address] [id number] [place] [address] Sep, [facility] [place] [facility] [address] [id number] [place] [address] Sep, [facility] [place] [facility] [address] [id number] [place] [address] Sep, [facility] [place] [facility] [address] [id number] [place] [address] Sep, [facility] [place] [facility] [address] [id number] [place] [address] Aug, [facility] [place] [facility] [address] [id number] [place] [address] Aug, [facility] [place] [facility] [address] [id number] [place] [address] Jul, [facility] [place] [facility] [address] [id number] [place] [address] Jul, [facility] [place] [facility] [address] [id number], [place] [address] Jun, [facility] [place] [facility] [address] [id number] [place] [address] Jun, [facility] [place] [facility] [address] [id number] [place] [address] Jun, [facility] [place] [facility] [address] [id number], [place] [address] May, [facility] [place] [facility] [address] [id number], [place] [address] Apr, [facility] [address] [id number] [place] [address] Apr, [facility] [address] [id number] [place] [address] Mar, [facility] [address] [id number] [place] [address] Feb, [facility] [address] [id number] [place] [address] Feb, [facility] [address] [id number] [place] [address] January, [facility] [address] [id number] [place] [address] January, [facility] [address] [id number] [place] [address] Dec, [facility] [address] [facility] [id number] [place] [address] Dec, [facility] [address] [facility] [id number] [place] [address] Dec, [facility] [address] [facility] [id number] [place] [address] Dec, [facility] [address] [id number] [place] [address] Nov, [facility] [place] [facility] [address] [facility] [id number] [place] [address] Nov, [facility] [place] [facility] [address] [id number] [place] [address] Oct, [facility] [place] [facility] [address] [id number] [place] [address] Oct, [facility] [place] [facility] [address] [facility] [id number] [place] [address] Oct, [facility] [place] [facility] [address] [id number] [place] [address] Sep, [facility] [place] [facility] [address] [id number] [place] [address] Sep, [facility] [place] [facility] [address] [id number] [place] [address] Sep, [facility] [place] [facility] [address] [id number] [place] [address] Sep, [facility] [place] [facility] [address] [id number] [place] [address] Sep, [facility] [place] [facility] [address] [id number] [place] [address] Aug, [facility] [place] [facility] [address] [id number] [place] [address] Aug, [facility] [place] [facility] [address] [id number] [place] [address] Aug, [facility] [place] [facility] [address] [id number] [place] [address] Aug, [facility] [place] [facility] [address] [id number] [place] [address] Jul, [facility] [place] [facility] [address] [id number] [place] [address] Jul, [facility] [place] [facility] [address] [id number] [place] [address] Jul, [facility] [place] [facility] [address] [id number] [place] [address] Jul, [facility] [place] [facility] [address] [id number] [place] [address] Jun, [facility] [place] [facility] [address] [id number] [place] [address] Jun, [facility] [place] [facility] [address] [id number] [place] [address] 08 Jun, 2012 [facility] [place] [facility] [address] [id number] [place] [address] 05 Jun, 2012 [facility] [place] [facility] [address] [id number] [place] [address] Jun, [facility] [place] [facility] [address] [id number] [place] [address] 24 May, 2012 [facility] [place] [facility] [address] [id number] [place] [address] 13 May, 2012 [facility] [place] [facility] [address] [id number] [place] [address] 12 May, 2012 [facility] [place] [facility] [address] [id number] [place] [address] 11 May, 2012 [facility] [place] [facility] [address] [id number] [place] [address] 10 May, 2012 [facility] [place] [facility] [address] [id number] [place] [address] 06 May, 2012 [facility] [place] [facility] [address] [id number] [place] [address] 05 May, 2012 [facility] [place] [facility] [address] [id number] [place] [address] 30 Apr, 2012 [facility] [place] [facility] [address] [id number] [place] [address] Apr, [facility] [place] [facility] [address] [id number] [place] [address] Apr, [facility] [place] [facility] [address] [id number] [place] [address] Apr, [facility] [place] [facility] [address] [id number] [place] [address] Apr, [facility] [place] [facility] [address] [id number] [place] [address] Apr, [facility] [place] [facility] [id number], [place] [address] Apr, [facility] [id number], [place] [address] Apr, [facility] [id number], [place] [address] Mar, [facility] [id number], [place] [address] Mar, [facility] [id number], [place] [address] Mar, [facility] [id number] [place] [address] Feb, [facility] [id number], [place] [address] January, [facility] [id number], [place] [address] January, [facility] [id number], [place] [address] January, [facility] [id number], [place] [address] Dec, [facility] [id number], [place] [address] Dec, [facility] [id number], [place] [address] Dec, [facility] [id number], [place] [address] Dec, [facility] [id number], [place] [address] Dec, [facility] [id number], [place] [address] Dec, IMMUNIZATIONS No Known Immunizations SOCIAL HISTORY [...] Surgical History appendectomy age 10 at [facility] Surgical History cholecystectomy-[facility] [facility] 2007 Surgical History coronary artery bypass graft LAD 02/2012 Surgical History heart cath x2 after bypass, pt has 5 stents Hospitalization History Chest pain, dizziness, renal insuff, heat cath showed CAD ([facility]) 01/03/2012 Hospitalization History CABG ([facility]) Dr. Banks 02/2012
--- OUTSIDE RECORDS SUMMARY | 2019-05-03 09:23 | XMS REPORT ---
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 Name Role Phone BELEM FUENTES Unavailable PROBLEMS Type Condition ICD9-CM Code WMM11-XZ Code Onset Dates Condition Status SNOMED Code Problem Centrilobular emphysema J43.2 Active 81299930 Problem Chest wall pain R07.89 Active 778907323 Problem Chronic kidney disease N18.9 Active 128658801 Problem Coronary artery disease involving [place] coronary artery of [place] heart without angina pectoris I25.10 Active 4181729066202 Problem Chronic fatigue R53.82 Active 28093549 Problem Vertigo R42 Active 247134220 Problem Anemia, unspecified type D64.9 Active 766885547 Problem Iron deficiency anemia, unspecified iron deficiency anemia type D50.9 Active 94387613 Problem Mixed hyperlipidemia E78.2 Active 221318930 ALLERGIES No Information ENCOUNTERS Encounter Location Date Diagnosis [place] [id number] [place] [address] Feb, Chest wall pain R07.89 [facility] [id number] [place] [address] Feb, Chest wall pain R07.89 [facility] [id number] [place] [address] Feb, [facility] [id number] [place] [address] Feb, Chest wall pain R07.89 [facility] [id number] [place] [address] January, Chest wall pain R07.89 and High risk medication use Z79.899 [place] [address] [address] [id number] [place] [address] January, Chest wall pain R07.89 [facility] [id number] [place] [address] January, Chest wall pain R07.89 [facility] [id number] [place] [address] Dec, Chest wall pain R07.89 [facility] [id number] [place] [address] Nov, Chest wall pain R07.89 [facility] [id number] [place] [address] Nov, [facility] [id number] [place] [address] Oct, Chest wall pain R07.89 [facility] [id number] [place] [address] Oct, Encounter for immunization Z23 [facility] [id number] [place] [address] Sep, [facility] [id number] [place] [address] Sep, Chest wall pain R07.89 [facility] [id number] [place] [address] Aug, Chest wall pain R07.89 [facility] [id number] [place] [address] Jul, Chest wall pain R07.89 [facility] [id number] [place] [address] Jun, Chest wall pain R07.89 [facility] [id number] [place] [address] Jun, [facility] [id number] [place] [address] Jun, Encounter for immunization Z23 [facility] [id number] [address] Jun, Chest wall pain R07.89 [facility] [id number] [place] [address] Jun, Encounter for immunization Z23 [facility] [id number] [place] [address] May, [facility] [address] [id number] [place] [address] May, Medicare annual wellness visit, initial Z00.00 ; Chest wall pain R07.89 ; Mixed hyperlipidemia E78.2 ; Coronary artery disease involving [place] coronary artery of [place] heart without angina pectoris I25.10 ; History of smoking Z87.891 and Chronic kidney disease N18.9 [place] [id number] [place] [address] May, Chest wall pain R07.89 [place] [address] [place] [id number] [place] [address] Apr, Chest wall pain R07.89 [place] [address] [place] [address] [id number] [place] [address] Apr, [place] [id number] [place] [address] Apr, Chest wall pain R07.89 ; Chronic kidney disease N18.9 ; Iron deficiency anemia, unspecified iron deficiency anemia type D50.9 ; Chronic fatigue R53.82 ; Coronary artery disease involving [place] coronary artery of [place] heart without angina pectoris I25.10 and Anemia, unspecified type D64.9 [place] [address] [place] [address] [id number] [place] [address] Apr, Chest wall pain R07.89 [place] [id number] [place] [address] Mar, Chest wall pain R07.89 [place] [address] [place] [id number] [address] Feb, Chest wall pain R07.89 [facility] [id number] [place] [address] January, Chest wall pain R07.89 [facility] [id number] [place] [address] Dec, Chest wall pain R07.89 ; Coronary artery disease involving [place] coronary artery of [place] heart without angina pectoris I25.10 and Vertigo R42 [facility] [id number] [place] [address] Dec, Chest wall pain R07.89 [facility] [address] [place] [address] [id number] [place] [address] Nov, Chest wall pain R07.89 [facility] [address] [place] [id number] [place] [address] Oct, Chest wall pain R07.89 [facility] [id number] [place] [address] Sep, Chest wall pain R07.89 and Pleurodynia R07.81 [facility] [id number] [place] [address] Sep, [facility] [id number] [place] [address] Sep, Chest wall pain R07.89 and Sore throat J02.9 [facility] [id number] [place] [address] Sep, [facility] [id number] [place] [address] Sep, Sore throat J02.9 and Acute nasopharyngitis J00 [facility] [id number] [place] [address] Sep, [facility] [id number] [address] Aug, Chest wall pain R07.89 [facility] [address] [id number] [place] [address] Jul, Chest wall pain R07.89 [facility] [id number] [place] [address] Jul, [facility] [id number] [place] [address] Jul, Chest wall pain R07.89 [facility] [address] [id number] [place] [address] Jul, Chest wall pain R07.89 ; Chronic fatigue R53.82 ; Anemia, unspecified type D64.9 ; Vertigo R42 and Coronary artery disease involving [place] coronary artery of [place] heart without angina pectoris I25.10 [facility] [address] [id number] [place] [address] Jun, Chest wall pain R07.89 [facility] [id number] [place] [address] Apr, Chest wall pain R07.89 [facility] [id number] [place] [address] Apr, [facility] [address] [address] Apr, Dental abscess K04.7 [facility] [address] [address] Apr, [facility] [id number] [place] [address] Apr, Chest wall pain R07.89 [facility] [address] [address] Mar, Chest wall pain R07.89 [facility] [id number] [place] [address] 15 Feb, 2017 Chest wall pain R07.89 ; Lateral epicondylitis of right elbow M77.11 and Mixed hyperlipidemia E78.2 [facility] [address] [place] [address] [id number] [place] [address] 07 Feb, 2017 Chest wall pain R07.89 [facility] [address] [address] [id number] [place] [address] January, [facility] [address] [id number] [place] [address] January, Chest wall pain R07.89 [facility] [address] [id number] [place] [address] Dec, Chest wall pain R07.89 [place] [address] [place] [id number] [place] [address] Nov, [place] [address] [place] [id number] [place] [address] Nov, Hypokalemia E87.6 [place] [address] [place] [address] [id number] [place] [address] Nov, Hypokalemia E87.6 and Iron deficiency anemia, unspecified iron deficiency anemia type D50.9 [place] [address] [place] [id number] [place] [address] Nov, [facility] [address] [id number] [place] [address] Nov, Nausea R11.0 and Hypovolemia E86.1 [facility] [address] [place] [id number] [place] [address] Nov, [place] [address] [place] [id number] [place] [address] 13 Nov, 2016 [place] [address] [place] [id number] [place] [address] 10 Nov, 2016 Chest wall pain R07.89 [facility] [address], [place] [address] Nov, Bronchitis J40 [facility] [id number] [place] [address] Oct, Chest wall pain R07.89 [facility] [id number] [place] [address] Sep, Chest wall pain R07.89 [facility] [address] [id number] [place] [address] Aug, Chest wall pain R07.89 [facility] [id number] [place] [address] Aug, Chest pain on breathing R07.1 [facility] [id number] [place] [address] Jul, [facility] [address] [id number] [place] [address] Jun, [facility] [id number] [place] [address] May, Chest wall pain R07.89 ; Iron deficiency anemia, unspecified iron deficiency anemia type D50.9 ; Chronic kidney disease N18.9 and Encounter for immunization Z23 [facility] [address], [place] [address] May, [facility] [id number] [place] [address] Apr, [facility] [id number] [place] [address] Mar, [facility] [address] [id number] [place] [address] Mar, [facility] [id number] [place] [address] Feb, [facility] [id number] [place] [address] Feb, Iron deficiency anemia, unspecified iron deficiency anemia type D50.9 [facility] [id number] [place] [address] 07 Feb, 2016 Dehydration E86.0 ; Diarrhea, unspecified type R19.7 ; Dizziness R42 and Other specified hypotension I95.89 [place] [address] [place] [address] [id number] [place] [address] Feb, Anemia, unspecified type D64.9 [place] [address] [place] [address] [id number] [place] [address] January, Anemia, unspecified type D64.9 [place] [address] [address] January, Paresthesia R20.2 [place] [address] [address] January, Chest wall pain R07.89 [place] [address] [place] [id number] [place] [address] Dec, Insomnia G47.00 [place] [address] [address] Dec, Chest pain on breathing R07.1 [place] [address] [place] [id number] [place] [address] Nov, Chest pain on breathing R07.1 [place] [address] [place] [id number] [place] [address] Oct, [place] [address] [place] [address] [id number] [place] [address] Oct, [place] [address] [address] Oct, Low back pain M54.5 and Chest wall pain R07.89 [place] [address] [address] Oct, Pleurodynia R07.81 [facility] [id number] [place] [address] Sep, Pleurodynia R07.81 and Other nerve root and plexus disorders G54.8 [facility] [id number] [place] [address] Aug, Chronic kidney disease N18.9 ; Encounter for immunization Z23 ; Chest wall pain R07.89 ; Urinary frequency R35.0 and Vertigo R42 [facility] [id number] [place] [address] Aug, [facility] [address] [address] Jul, [facility] [id number] [place] [address] Jul, [facility] [address] [address] Jun, [facility] [id number] [place] [address] Jun, [facility] [id number] [place] [address] May, [facility] [id number] [place] [address] May, [facility] [id number] [place] [address] May, [facility] [id number] [place] [address] May, Coronary atherosclerosis of unspecified type of vessel, [place] or graft 414.00 [facility] [id number] [place] [address] Apr, [facility] [id number] [place] [address] Apr, [facility] [address] [facility] [id number] [address] Apr, [facility] [address] [address] Apr, [facility] [address] [facility] [id number], [place] [address] Apr, [facility] [id number] [place] [address] Apr, Coronary atherosclerosis of unspecified type of vessel, [place] or graft 414.00 and Left-sided chest wall pain 786.52 [facility] [id number] [place] [address] Mar, [facility] [id number] [address] Mar, [facility] [id number] [place] [address] Feb, [facility] [address], [place] [address] Feb, [facility] [address] [address] January, [facility] [address], [place] [address] January, [facility] [address], [place] [address] January, [facility] [address], [place] [address] January, Neuropathic pain of chest 353.8 [facility] [address], [place] [address] Dec, [facility] [id number] [address] Dec, [facility] [address], [place] [address] Nov, [facility] [place] [facility] [address] [id number] [place] [address] Nov, [facility] [place] [facility] [address] [id number] [place] [address] Nov, [facility] [place] [facility] [address] [facility] [id number] [place] [address] Nov, [facility] [place] [facility] [address] [id number] [place] [address] Nov, [facility] [place] [facility] [address] [id number] [place] [address] Nov, [facility] [place] [facility] [address] [id number] [place] [address] Oct, [facility] [place] [facility] [address] [facility] [id number] [place] [address] Oct, [facility] [place] [facility] [address] [id number] [place] [address] Oct, [facility] [place] [facility] [address] [id number] [place] [address] Oct, [facility] [place] [facility] [address] [facility] [id number] [place] [address] Oct, [facility] [place] [facility] [address] [id number], [place] [address] Oct, [facility] [place] [facility] [address] [id number], [place] [address] Sep, [facility] [place] [facility] [address] [id number] [place] [address] Sep, [facility] [place] [facility] [address] [facility] [id number] [place] [address] Sep, [facility] [place] [facility] [address] [facility] [id number] [place] [address] Sep, [facility] [place] [facility] [address] [id number] [place] [address] Aug, [facility] [place] [facility] [address] [id number] [place] [address] Aug, [facility] [place] [facility] [address] [id number] [place] [address] Aug, [facility] [place] [facility] [address] [id number] [place] [address] Aug, [facility] [place] [facility] [address] [id number] [place] [address] Aug, [facility] [place] [facility] [address] [id number] [place] [address] Aug, [facility] [place] [facility] [address] [id number] [place] [address] Aug, [facility] [place] [facility] [address] [id number] [place] [address] Aug, [facility] [place] [facility] [address] [id number] [place] [address] Aug, [facility] [place] [facility] [address] [id number] [place] [address] Aug, [facility] [place] [facility] [address] [id number] [place] [address] Jul, [facility] [place] [facility] [address] [id number] [place] [address] Jul, [facility] [place] [facility] [address] [id number] [place] [address] Jul, [facility] [place] [facility] [address] [id number] [place] [address] Jul, [facility] [place] [facility] [address] [id number] [place] [address] Jun, [facility] [place] [facility] [address] [id number] [place] [address] Jun, [facility] [place] [facility] [address] [id number] [place] [address] Jun, [facility] [place] [facility] [address] [id number] [place] [address] Jun, [facility] [place] [facility] [address] [id number] [place] [address] May, [facility] [place] [facility] [address] [id number] [place] [address] May, [facility] [place] [facility] [address] [id number] [place] [address] May, [facility] [place] [facility] [address] [id number] [place] [address] May, [facility] [place] [facility] [address] [id number] [place] [address] Apr, [facility] [place] [facility] [address] [id number] [place] [address] Apr, [facility] [place] [facility] [address] [id number] [place] [address] Feb, [facility] [place] [facility] [address] [id number] [place] [address] January, [facility] [place] [facility] [address] [id number] [place] [address] January, [facility] [place] [facility] [address] [id number], [place] [address] January, [facility] [place] [facility] [address] [id number] [place] [address] January, [facility] [place] [facility] [address] [id number] [place] [address] January, [facility] [place] [facility] [address] [id number] [place] [address] January, [facility] [place] [facility] [address] [id number] [place] [address] Dec, [facility] [place] [facility] [address] [id number] [place] [address] Dec, [facility] [place] [facility] [address] [id number] [place] [address] Dec, [facility] [place] [facility] [address] [id number] [place] [address] Dec, [facility] [place] [facility] [address] [id number] [place] [address] Dec, [facility] [place] [facility] [address] [id number] [place] [address] Dec, [facility] [place] [facility] [address] [id number] [place] [address] Dec, [facility] [place] [facility] [address] [id number] [place] [address] Dec, [facility] [place] [facility] [address] [id number] [place] [address] Nov, [facility] [place] [facility] [address] [id number] [place] [address] Nov, [facility] [place] [facility] [address] [id number] [place] [address] Nov, [facility] [place] [facility] [address] [id number] [place] [address] Nov, [facility] [place] [facility] [address] [id number] [place] [address] Nov, [facility] [place] [facility] [address] [id number] [place] [address] Nov, [facility] [place] [facility] [address] [id number] [place] [address] Nov, [facility] [place] [facility] [address] [id number] [place] [address] Oct, [facility] [place] [facility] [address] [id number] [place] [address] Oct, [facility] [place] [facility] [address] [id number] [place] [address] Oct, [facility] [place] [facility] [address] [id number] [place] [address] Oct, [facility] [place] [facility] [address] [id number] [place] [address] Sep, [facility] [place] [facility] [address] [id number] [place] [address] Sep, [facility] [place] [facility] [address] [id number] [place] [address] Sep, [facility] [place] [facility] [address] [id number] [place] [address] Sep, [facility] [place] [facility] [address] [id number] [place] [address] Aug, [facility] [place] [facility] [address] [id number] [place] [address] Aug, [facility] [place] [facility] [address] [id number] [place] [address] Jul, [facility] [place] [facility] [address] [id number] [place] [address] Jul, [facility] [place] [facility] [address] [id number], [place] [address] Jun, [facility] [place] [facility] [address] [id number] [place] [address] Jun, [facility] [place] [facility] [address] [id number] [place] [address] Jun, [facility] [place] [facility] [address] [id number], [place] [address] May, [facility] [place] [facility] [address] [id number], [place] [address] Apr, [facility] [address] [id number] [place] [address] Apr, [facility] [address] [id number] [place] [address] Mar, [facility] [address] [id number] [place] [address] Feb, [facility] [address] [id number] [place] [address] Feb, [facility] [address] [id number] [place] [address] January, [facility] [address] [id number] [place] [address] January, [facility] [address] [id number] [place] [address] Dec, [facility] [address] [facility] [id number] [place] [address] Dec, [facility] [address] [facility] [id number] [place] [address] Dec, [facility] [address] [facility] [id number] [place] [address] Dec, [facility] [address] [id number] [place] [address] Nov, [facility] [place] [facility] [address] [facility] [id number] [place] [address] Nov, [facility] [place] [facility] [address] [id number] [place] [address] Oct, [facility] [place] [facility] [address] [id number] [place] [address] Oct, [facility] [place] [facility] [address] [facility] [id number] [place] [address] Oct, [facility] [place] [facility] [address] [id number] [place] [address] Sep, [facility] [place] [facility] [address] [id number] [place] [address] Sep, [facility] [place] [facility] [address] [id number] [place] [address] Sep, [facility] [place] [facility] [address] [id number] [place] [address] Sep, [facility] [place] [facility] [address] [id number] [place] [address] Sep, [facility] [place] [facility] [address] [id number] [place] [address] Aug, [facility] [place] [facility] [address] [id number] [place] [address] Aug, [facility] [place] [facility] [address] [id number] [place] [address] Aug, [facility] [place] [facility] [address] [id number] [place] [address] Aug, [facility] [place] [facility] [address] [id number] [place] [address] Jul, [facility] [place] [facility] [address] [id number] [place] [address] Jul, [facility] [place] [facility] [address] [id number] [place] [address] Jul, [facility] [place] [facility] [address] [id number] [place] [address] Jul, [facility] [place] [facility] [address] [id number] [place] [address] Jun, [facility] [place] [facility] [address] [id number] [place] [address] Jun, [facility] [place] [facility] [address] [id number] [place] [address] 08 Jun, 2012 [facility] [place] [facility] [address] [id number] [place] [address] 05 Jun, 2012 [facility] [place] [facility] [address] [id number] [place] [address] Jun, [facility] [place] [facility] [address] [id number] [place] [address] 24 May, 2012 [facility] [place] [facility] [address] [id number] [place] [address] 13 May, 2012 [facility] [place] [facility] [address] [id number] [place] [address] 12 May, 2012 [facility] [place] [facility] [address] [id number] [place] [address] 11 May, 2012 [facility] [place] [facility] [address] [id number] [place] [address] 10 May, 2012 [facility] [place] [facility] [address] [id number] [place] [address] 06 May, 2012 [facility] [place] [facility] [address] [id number] [place] [address] 05 May, 2012 [facility] [place] [facility] [address] [id number] [place] [address] 30 Apr, 2012 [facility] [place] [facility] [address] [id number] [place] [address] Apr, [facility] [place] [facility] [address] [id number] [place] [address] Apr, [facility] [place] [facility] [address] [id number] [place] [address] Apr, [facility] [place] [facility] [address] [id number] [place] [address] Apr, [facility] [place] [facility] [address] [id number] [place] [address] Apr, [facility] [place] [facility] [id number] [address] Apr, [facility] [id number] [place] [address] Apr, [facility] [id number] [address] Mar, [facility] [id number] [address] Mar, [facility] [id number] [place] [address] Mar, [facility] [id number] [place] [address] Feb, [facility] [id number] [address] January, [facility] [id number] [address] January, [facility] [id number] [address] January, [facility] [id number] [place] [address] Dec, [facility] [id number] [place] [address] Dec, [facility] [id number] [place] [address] Dec, [facility] [id number] [place] [address] Dec, [facility] [id number] [place] [address] Dec, [facility] [id number] [place] [address] Dec, IMMUNIZATIONS No Known Immunizations SOCIAL HISTORY [...] 04/02/2012 Surgical History appendectomy age 10 at [facility] Surgical History cholecystectomy-[facility] [facility] 2007 Surgical History coronary artery bypass graft LAD 02/2012 Surgical History heart cath x2 after bypass, pt has 5 stents Hospitalization History Chest pain, dizziness, renal insuff, heat cath showed CAD ([facility]) 01/03/2012 Hospitalization History CABG ([facility]) Dr. Banks 02/2012
--- OUTSIDE RECORDS SUMMARY | 2019-05-03 09:24 | XMS REPORT ---
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 Name Role Phone Migration, Doctor Unavailable Unavailable PROBLEMS Type Condition ICD9-CM Code UAF44-GX Code Onset Dates Condition Status SNOMED Code Problem Centrilobular emphysema J43.2 Active 40919679 Problem Chest wall pain R07.89 Active 055332359 Problem Chronic kidney disease N18.9 Active 903634862 Problem Coronary artery disease involving [place] coronary artery of [place] heart without angina pectoris I25.10 Active 9876850705488 Problem Chronic fatigue R53.82 Active 70944449 Problem Vertigo R42 Active 532284488 Problem Anemia, unspecified type D64.9 Active 717068883 Problem Iron deficiency anemia, unspecified iron deficiency anemia type D50.9 Active 41409305 Problem Mixed hyperlipidemia E78.2 Active 262541311 ALLERGIES Substance Reaction Event Type Date Status Celebrex 200 Mg Capsule hot flashes Non Drug Allergy Dec, Active ENCOUNTERS Encounter Location Date Diagnosis [place] [id number] [place] [address] Feb, [facility] [place] [facility] [address] [id number] [place] [address] Feb, Chest wall pain R07.89 [facility] [place] [facility] [id number] [place] [address] Feb, [facility] [place] [facility] [id number] [place] [address] Feb, Chest wall pain R07.89 [facility] [place] [facility] [id number] [place] [address] January, Chest wall pain R07.89 and High risk medication use Z79.899 [facility] [place] [facility] [id number] [place] [address] January, Chest wall pain R07.89 [facility] [place] [facility] [id number] [address] January, Chest wall pain R07.89 [facility] [place] [facility] [id number] [place] [address] Dec, Chest wall pain R07.89 [facility] [place] [facility] [id number] [place] [address] Nov, Chest wall pain R07.89 [facility] [place] [facility] [address] [facility] [id number] [place] [address] Nov, [facility] [place] [facility] [id number] [place] [address] Oct, Chest wall pain R07.89 [facility] [place] [facility] [id number] [place] [address] Oct, Encounter for immunization Z23 [facility] [facility] [id number] [place] [address] Sep, [facility] [place] [facility] [id number] [place] [address] Sep, Chest wall pain R07.89 [facility] [place] [facility] [id number] [place] [address] Aug, Chest wall pain R07.89 [facility] [place] [facility] [id number] [place] [address] Jul, Chest wall pain R07.89 [facility] [place] [facility] [id number] [place] [address] Jun, Chest wall pain R07.89 [facility] [place] [facility] [id number] [place] [address] Jun, [facility] [place] [facility] [id number] [place] [address] Jun, Encounter for immunization Z23 [facility] [place] [id number] [address] Jun, Chest wall pain R07.89 [place] [id number] [place] [address] 05 Jun, 2018 Encounter for immunization Z23 [facility] [address] [id number] [place] [address] May, [place] [address] [id number] [place] [address] 11 May, 2018 Medicare annual wellness visit, initial Z00.00 ; Chest wall pain R07.89 ; Mixed hyperlipidemia E78.2 ; Coronary artery disease involving [place] coronary artery of [place] heart without angina pectoris I25.10 ; History of smoking Z87.891 and Chronic kidney disease N18.9 [place] [address] [id number] [place] [address] May, Chest wall pain R07.89 [place] [address] [place] [id number] [place] [address] Apr, Chest wall pain R07.89 [place] [address] [place] [id number] [place] [address] Apr, [place] [id number] [place] [address] Apr, Chest wall pain R07.89 ; Chronic kidney disease N18.9 ; Iron deficiency anemia, unspecified iron deficiency anemia type D50.9 ; Chronic fatigue R53.82 ; Coronary artery disease involving [place] coronary artery of [place] heart without angina pectoris I25.10 and Anemia, unspecified type D64.9 [place] [id number] [place] [address] Apr, Chest wall pain R07.89 [place] [id number] [place] [address] Mar, Chest wall pain R07.89 [place] [address] [place] [id number] [place] [address] Feb, Chest wall pain R07.89 [facility] [place] [facility] [id number] [place] [address] January, Chest wall pain R07.89 [facility] [place] [facility] [id number] [place] [address] Dec, Chest wall pain R07.89 ; Coronary artery disease involving [place] coronary artery of [place] heart without angina pectoris I25.10 and Vertigo R42 [facility] [facility] [id number] [place] [address] Dec, Chest wall pain R07.89 [facility] [facility] [address] [place] [address] [id number] [place] [address] Nov, Chest wall pain R07.89 [facility] [facility] [address] [id number] [place] [address] Oct, Chest wall pain R07.89 [facility] [id number] [place] [address] Sep, Chest wall pain R07.89 and Pleurodynia R07.81 [facility] [address] [address] [id number] [place] [address] Sep, [facility] [id number] [place] [address] Sep, Chest wall pain R07.89 and Sore throat J02.9 [facility] [address], [place] [address] Sep, [facility] [id number] [place] [address] Sep, Sore throat J02.9 and Acute nasopharyngitis J00 [facility] [id number] [place] [address] Sep, [facility] [id number] [place] [address] Aug, Chest wall pain R07.89 [facility] [id number] [place] [address] Jul, Chest wall pain R07.89 [facility] [facility] [id number] [place] [address] Jul, [facility] [id number] [place] [address] Jul, Chest wall pain R07.89 [facility] [id number] [place] [address] Jul, Chest wall pain R07.89 ; Chronic fatigue R53.82 ; Anemia, unspecified type D64.9 ; Vertigo R42 and Coronary artery disease involving [place] coronary artery of [place] heart without angina pectoris I25.10 [facility] [id number] [place] [address] Jun, Chest wall pain R07.89 [facility] [address] [id number] [place] [address] Apr, Chest wall pain R07.89 [facility] [address] [id number] [place] [address] Apr, [facility] [address] [id number] [place] [address] Apr, Dental abscess K04.7 [facility] [address] [id number] [place] [address] Apr, [facility] [id number] [place] [address] Apr, Chest wall pain R07.89 [facility] [id number] [place] [address] Mar, Chest wall pain R07.89 [facility] [id number] [place] [address] Feb, Chest wall pain R07.89 ; Lateral epicondylitis of right elbow M77.11 and Mixed hyperlipidemia E78.2 [place] [address] [address] [id number] [place] [address] Feb, Chest wall pain R07.89 [facility] [id number] [place] [address] January, [facility] [address] [address] January, Chest wall pain R07.89 [facility] [address] [address] [id number] [place] [address] Dec, Chest wall pain R07.89 [place] [address] [place] [id number] [place] [address] Nov, [place] [address] [place] [address] [id number] [place] [address] Nov, Hypokalemia E87.6 [place] [address] [place] [id number] [place] [address] Nov, Hypokalemia E87.6 and Iron deficiency anemia, unspecified iron deficiency anemia type D50.9 [place] [address] [place] [id number] [place] [address] Nov, [place] [address] [place] [id number] [place] [address] Nov, Nausea R11.0 and Hypovolemia E86.1 [place] [address] [place] [id number] [place] [address] Nov, [place] [address] [place] [id number] [place] [address] 13 Nov, 2016 [place] [address] [place] [id number] [place] [address] 10 Nov, 2016 Chest wall pain R07.89 [facility] [address] [id number] [place] [address] Nov, Bronchitis J40 [facility] [id number] [place] [address] Oct, Chest wall pain R07.89 [facility] [id number] [place] [address] Sep, Chest wall pain R07.89 [facility] [id number] [place] [address] Aug, Chest wall pain R07.89 [facility] [id number] [place] [address] Aug, Chest pain on breathing R07.1 [facility] [id number] [place] [address] Jul, [facility] [id number] [place] [address] Jun, [facility] [id number] [place] [address] May, Chest wall pain R07.89 ; Iron deficiency anemia, unspecified iron deficiency anemia type D50.9 ; Chronic kidney disease N18.9 and Encounter for immunization Z23 [facility] [address] [id number] [place] [address] May, [facility] [id number] [place] [address] Apr, [facility] [id number] [place] [address] Mar, [facility] [id number] [place] [address] Mar, [facility] [address] [id number] [place] [address] Feb, [facility] [id number] [place] [address] Feb, Iron deficiency anemia, unspecified iron deficiency anemia type D50.9 [facility] [id number] [place] [address] 07 Feb, 2016 Dehydration E86.0 ; Diarrhea, unspecified type R19.7 ; Dizziness R42 and Other specified hypotension I95.89 [facility] [id number] [place] [address] Feb, Anemia, unspecified type D64.9 [facility] [address] [address] January, Anemia, unspecified type D64.9 [facility] [address] [address] January, Paresthesia R20.2 [facility] [address] [address] January, Chest wall pain R07.89 [place] [address] [address] Dec, Insomnia G47.00 [place] [address] [address] Dec, Chest pain on breathing R07.1 [facility] [address] [id number] [place] [address] Nov, Chest pain on breathing R07.1 [place] [address] [place] [address] [id number] [place] [address] Oct, [place] [address] [place] [address] [id number] [place] [address] Oct, [place] [address] [address] Oct, Low back pain M54.5 and Chest wall pain R07.89 [facility] [address] [id number] [place] [address] Oct, Pleurodynia R07.81 [facility] [facility] [id number] [place] [address] Sep, Pleurodynia R07.81 and Other nerve root and plexus disorders G54.8 [facility] [address] [id number] [place] [address] Aug, Chronic kidney disease N18.9 ; Encounter for immunization Z23 ; Chest wall pain R07.89 ; Urinary frequency R35.0 and Vertigo R42 [facility] [id number] [place] [address] Aug, [facility] [facility] [address] [address] Jul, [facility] [facility] [address] [address] Jul, [facility] [facility] [address] [address] Jun, [facility] [facility] [address] [address] Jun, [facility] [facility] [address] [address] May, [facility] [facility] [id number] [place] [address] May, [facility] [facility] [id number] [place] [address] May, [facility] [facility] [id number] [place] [address] May, Coronary atherosclerosis of unspecified type of vessel, [place] or graft 414.00 [facility] [facility] [address] [id number] [place] [address] Apr, [facility] [id number] [place] [address] Apr, [facility] [facility] [address] [place] [address] Apr, [facility] [facility] [address] [address] Apr, [facility] [facility] [id number] [place] [address] Apr, [facility] [facility] [id number] [address] Apr, Coronary atherosclerosis of unspecified type of vessel, [place] or graft 414.00 and Left-sided chest wall pain 786.52 [facility] [facility] [id number] [address] Mar, [facility] [facility] [id number] [place] [address] Mar, [facility] [facility] [id number] [address] Feb, [facility] [facility] [id number] [place] [address] Feb, [facility] [facility] [address] [address] January, [facility] [facility] [id number] [address] January, [facility] [facility] [address] [address] January, [facility] [facility] [address], [place] [address] January, Neuropathic pain of chest 353.8 [facility] [address], [place] [address] Dec, [facility] [facility] [id number] [address] Dec, [facility] [facility] [address], [place] [address] Nov, [facility] [place] [facility] [address] [id number] [place] [address] Nov, [facility] [place] [facility] [address] [id number] [place] [address] Nov, [facility] [place] [facility] [address] [id number] [place] [address] Nov, [facility] [place] [facility] [address] [id number] [place] [address] Nov, [facility] [place] [facility] [address] [id number] [place] [address] Nov, [facility] [place] [facility] [address] [id number] [place] [address] Oct, [facility] [place] [facility] [address] [facility] [id number] [place] [address] Oct, [facility] [place] [facility] [address] [id number] [place] [address] Oct, [facility] [place] [facility] [address] [id number] [place] [address] Oct, [facility] [place] [facility] [address] [id number] [place] [address] Oct, [facility] [place] [facility] [address] [id number] [place] [address] Oct, [facility] [place] [facility] [address] [id number] [address] Sep, [facility] [place] [facility] [address] [id number] [place] [address] Sep, [facility] [place] [facility] [address] [id number] [place] [address] Sep, [facility] [place] [facility] [address] [id number] [address] Sep, [facility] [place] [facility] [address] [id number] [address] Aug, [facility] [place] [facility] [address] [id number] [place] [address] Aug, [facility] [place] [facility] [address] [id number] [place] [address] Aug, [facility] [place] [facility] [address] [facility] [id number] [place] [address] Aug, [facility] [place] [facility] [address] [id number] [place] [address] Aug, [facility] [place] [facility] [address] [id number] [place] [address] Aug, [facility] [place] [facility] [address] [id number] [place] [address] Aug, [facility] [place] [facility] [address] [facility] [id number] [place] [address] Aug, [facility] [place] [facility] [address] [id number] [place] [address] Aug, [facility] [place] [facility] [address] [facility] [id number] [place] [address] Aug, [facility] [place] [facility] [address] [facility] [id number] [place] [address] Jul, [facility] [place] [facility] [address] [id number] [place] [address] Jul, [facility] [place] [facility] [address] [id number] [place] [address] Jul, [facility] [place] [facility] [address] [id number] [place] [address] Jul, [facility] [place] [facility] [address] [facility] [id number] [place] [address] Jun, [facility] [place] [facility] [address] [facility] [id number] [place] [address] Jun, [facility] [place] [facility] [address] [id number] [place] [address] Jun, [facility] [place] [facility] [address] [id number] [place] [address] Jun, [facility] [place] [facility] [address] [id number] [place] [address] May, [facility] [place] [facility] [address] [id number] [place] [address] May, [facility] [place] [facility] [address] [id number] [place] [address] May, [facility] [place] [facility] [address] [id number] [place] [address] May, [facility] [place] [facility] [address] [id number] [place] [address] Apr, [facility] [place] [facility] [address] [id number] [place] [address] Apr, [facility] [place] [facility] [address] [id number] [place] [address] Feb, [facility] [place] [facility] [address] [id number] [place] [address] January, [facility] [place] [facility] [address] [id number] [place] [address] January, [facility] [place] [facility] [address] [id number] [place] [address] January, [facility] [place] [facility] [address] [id number] [place] [address] January, [facility] [place] [facility] [address] [id number] [place] [address] January, [facility] [place] [facility] [address] [id number] [place] [address] January, [facility] [place] [facility] [address] [id number] [place] [address] Dec, [facility] [place] [facility] [address] [id number] [place] [address] Dec, [facility] [place] [facility] [address] [id number] [place] [address] Dec, [facility] [place] [facility] [address] [id number] [place] [address] Dec, [facility] [place] [facility] [address] [id number] [place] [address] Dec, [facility] [place] [facility] [address] [id number] [place] [address] Dec, [facility] [place] [facility] [address] [id number] [place] [address] Dec, [facility] [place] [facility] [address] [id number] [place] [address] Dec, [facility] [place] [facility] [address] [id number] [place] [address] Nov, [facility] [place] [facility] [address] [id number] [place] [address] Nov, [facility] [place] [facility] [address] [id number] [place] [address] Nov, [facility] [place] [facility] [address] [id number] [place] [address] Nov, [facility] [place] [facility] [address] [id number] [address] Nov, [facility] [place] [facility] [address] [id number] [place] [address] Nov, [facility] [place] [facility] [address] [id number] [place] [address] Nov, [facility] [place] [facility] [address] [id number] [place] [address] Oct, [facility] [place] [facility] [address] [id number] [place] [address] Oct, [facility] [address] [id number] [place] [address] Oct, [facility] [place] [facility] [address] [id number] [place] [address] Oct, [facility] [address] [id number] [place] [address] Sep, [facility] [place] [facility] [address] [id number] [place] [address] Sep, [facility] [address] [id number] [place] [address] Sep, [facility] [place] [facility] [address] [id number] [place] [address] Sep, [facility] [address] [id number] [place] [address] Aug, [facility] [address] [id number] [place] [address] Aug, [facility] [place] [facility] [address] [id number] [place] [address] Jul, [facility] [address] [id number] [place] [address] Jul, [facility] [place] [facility] [address] [id number] [place] [address] Jun, [facility] [place] [facility] [address] [id number] [place] [address] Jun, [facility] [place] [facility] [address] [id number] [place] [address] Jun, [facility] [place] [facility] [address] [id number] [place] [address] May, [facility] [place] [facility] [address] [id number] [place] [address] Apr, [facility] [address] [id number] [place] [address] Apr, [facility] [place] [facility] [address] [id number] [place] [address] Mar, [facility] [place] [facility] [address] [id number] [place] [address] Feb, [facility] [place] [facility] [address] [id number] [place] [address] Feb, [facility] [address] [id number] [place] [address] January, [facility] [place] [facility] [address] [id number] [place] [address] January, [facility] [place] [facility] [address] [id number] [place] [address] Dec, [facility] [place] [facility] [address] [id number] [place] [address] Dec, [facility] [place] [facility] [address] [id number] [place] [address] Dec, [facility] [facility] [address] [id number] [place] [address] Dec, [facility] [place] [facility] [address] [id number] [place] [address] Nov, [facility] [place] [facility] [address] [id number] [address] Nov, [facility] [place] [facility] [address] [id number] [place] [address] Oct, [facility] [place] [facility] [address] [id number] [place] [address] Oct, [facility] [place] [facility] [address] [id number] [place] [address] Oct, [facility] [place] [facility] [address] [id number] [place] [address] 29 Sep, 2012 [facility] [facility] [address] [id number] [place] [address] Sep, [facility] [place] [facility] [address] [id number] [place] [address] Sep, [facility] [place] [facility] [address] [id number] [place] [address] Sep, [facility] [place] [facility] [address] [id number] [place] [address] Sep, [facility] [place] [facility] [address] [id number] [place] [address] Aug, [facility] [place] [facility] [address] [id number] [place] [address] Aug, [facility] [place] [facility] [address] [id number] [place] [address] Aug, [facility] [place] [facility] [address] [id number] [place] [address] Aug, [facility] [place] [facility] [address] [id number] [place] [address] Jul, [facility] [place] [facility] [address] [facility] [id number] [place] [address] Jul, [facility] [place] [facility] [address] [id number] [place] [address] Jul, [facility] [address] [id number] [place] [address] Jul, [facility] [place] [facility] [address] [id number] [place] [address] Jun, [facility] [place] [facility] [address] [id number] [place] [address] Jun, [facility] [facility] [address] [facility] [id number] [place] [address] Jun, [facility] [address] [id number] [place] [address] Jun, [facility] [place] [facility] [address] [id number] [place] [address] Jun, [facility] [facility] [address] [id number] [place] [address] 24 May, 2012 [facility] [place] [facility] [address] [id number] [place] [address] 13 May, 2012 [facility] [facility] [address] [id number] [place] [address] 12 May, 2012 [facility] [address] [id number] [place] [address] 11 May, 2012 [facility] [facility] [address] [id number] [place] [address] 10 May, 2012 [facility] [address] [id number] [place] [address] 06 May, 2012 [facility] [address] [id number] [place] [address] 05 May, 2012 [facility] [address] [id number] [place] [address] 30 Apr, 2012 [facility] [address] [id number] [place] [address] Apr, [facility] [address] [id number] [place] [address] Apr, [facility] [address] [id number] [place] [address] Apr, [facility] [address] [id number] [place] [address] Apr, [facility] [address] [id number] [place] [address] Apr, [facility] [address] [id number] [place] [address] Apr, [facility] [address] [id number] [address] Apr, [facility] [id number] [address] Mar, [facility] [id number] [address] Mar, [facility] [id number] [address] Mar, [facility] [id number] [address] Feb, [facility] [id number] [address] January, [facility] [id number] [address] January, [facility] [id number] [address] January, [facility] [id number] [address] Dec, [facility] [id number] [address] Dec, [facility] [id number] [address] Dec, [facility] [id number], [place] [address] Dec, [facility] [id number] [address] Dec, [facility] [id number] [address] Dec, IMMUNIZATIONS No Known Immunizations SOCIAL HISTORY Never Assessed REASON FOR VISIT EMR-[employer] PLAN OF CARE VITAL SIGNS MEDICATIONS Medication Instructions Dosage Frequency Start Date End Date Duration Status Hydrocodone-Acetaminophen 7.5-325 mg take 1-2 tablet by Oral route every 6 hours as needed for pain PRN must be seen for more refills Nov, Active Potassium Chloride 20 mEq take 1 tablet (20 meq) by oral route once daily with food for 14 days Mar, Active Restoril 30 mg take 1 capsule by Oral route 1 time per day at bedtime as needed PRN Oct, Active Lyrica 50 mg 1 capsule by Oral route 3 times per day for fibromyalgia (729.1) 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) Aug, Active Toprol XL 25 mg take 0.5 tablet by Oral route 1 time per day Apr, Active Fish Oil Concentrate 1000 mg 1 Capsule by Oral route 2 times per day Sep, Active Lisinopril 5 mg 1 tablet by Oral route 1 time per day Dec, Active Multivitamin 1 Tablet by Oral route 1 time per day Sep, Active Simvastatin 40 mg 1 tablet by Oral route 1 time per day Sep, Active Furosemide 40 mg take 1 tablet (40 mg) by oral route once daily for 14 days Mar, Active Diclofenac Sodium 75 mg 1 tablet by Oral route 2 times per day PRN pc Oct, Active Aspirin 81 mg take 1 tablet (81 mg) by oral route once daily Nov, Active RESULTS No Results PROCEDURES No Known procedures [...] 04/02/2012 Surgical History appendectomy age 10 at [facility] Surgical History cholecystectomy-[facility] 2007 Surgical History coronary artery bypass graft LAD 02/2012 Surgical History heart cath x2 after bypass, pt has 5 stents Hospitalization History Chest pain, dizziness, renal insuff, heat cath showed CAD ([facility]) 01/03/2012 Hospitalization History CABG ([facility]) Dr. Banks 02/2012
--- OUTSIDE RECORDS SUMMARY | 2019-05-03 09:25 | XMS REPORT ---
Author Author Migration, Doctor Organization [facility] Address Unknown Phone Unavailable Care Team Providers Care Loading Checker Name Role Phone Migration, Doctor Unavailable Unavailable PROBLEMS Type Condition ICD9-CM Code UNR44-AO Code Onset Dates Condition Status SNOMED Code Problem Centrilobular emphysema J43.2 Active 59583622 Problem Chest wall pain R07.89 Active 430659229 Problem Chronic kidney disease N18.9 Active 726787836 Problem Coronary artery disease involving [place] coronary artery of [place] heart without angina pectoris I25.10 Active 0946336767703 Problem Chronic fatigue R53.82 Active 65845338 Problem Vertigo R42 Active 347554427 Problem Anemia, unspecified type D64.9 Active 263822168 Problem Iron deficiency anemia, unspecified iron deficiency anemia type D50.9 Active 70906735 Problem Mixed hyperlipidemia E78.2 Active 194404395 ALLERGIES No Information ENCOUNTERS Encounter Location Date Diagnosis [facility] [id number] [place] [address] January, [facility] [id number] [place] [address] January, [facility] [id number] [place] [address] January, Chest wall pain R07.89 [facility] [id number] [place] [address] Dec, Chest wall pain R07.89 [facility] [id number] [place] [address] Nov, Chest wall pain R07.89 [facility] [id number] [place] [address] Nov, [facility] [id number] [place] [address] Oct, Chest wall pain R07.89 [facility] [address] [address] Oct, Encounter for immunization Z23 [facility] [address], [place] [address] Sep, [facility] [id number] [place] [address] Sep, Chest wall pain R07.89 [facility] [id number] [place] [address] Aug, Chest wall pain R07.89 [facility] [id number] [place] [address] Jul, Chest wall pain R07.89 [facility] [id number] [place] [address] Jun, Chest wall pain R07.89 [facility] [id number] [place] [address] Jun, [facility] [id number] [place] [address] Jun, Encounter for immunization Z23 [facility] [id number] [place] [address] Jun, Chest wall pain R07.89 [facility] [id number] [place] [address] Jun, Encounter for immunization Z23 [facility] [address], [place] [address] May, [facility] [id number] [place] [address] May, Medicare annual wellness visit, initial Z00.00 ; Chest wall pain R07.89 ; Mixed hyperlipidemia E78.2 ; Coronary artery disease involving [place] coronary artery of [place] heart without angina pectoris I25.10 ; History of smoking Z87.891 and Chronic kidney disease N18.9 [facility] [id number] [place] [address] May, Chest wall pain R07.89 [facility] [id number] [place] [address] Apr, Chest wall pain R07.89 [address] [id number] [place] [address] Apr, [facility] [id number] [place] [address] Apr, Chest wall pain R07.89 ; Chronic kidney disease N18.9 ; Iron deficiency anemia, unspecified iron deficiency anemia type D50.9 ; Chronic fatigue R53.82 ; Coronary artery disease involving [place] coronary artery of [place] heart without angina pectoris I25.10 and Anemia, unspecified type D64.9 [address] [facility] [id number] [place] [address] Apr, Chest wall pain R07.89 [address] [facility] [id number] [place] [address] Mar, Chest wall pain R07.89 [address] [facility] [id number] [place] [address] Feb, Chest wall pain R07.89 [address] [id number] [place] [address] January, Chest wall pain R07.89 [address] [facility] [id number] [place] [address] Dec, Chest wall pain R07.89 ; Coronary artery disease involving [place] coronary artery of [place] heart without angina pectoris I25.[address] [facility] [address] [place] [address] Dec, Chest wall pain R07.89 [address] [facility] [id number] [place] [address] Nov, Chest wall pain R07.89 [facility] [id number] [place] [address] Oct, Chest wall pain R07.89 [facility] [id number] [place] [address] Sep, Chest wall pain R07.[address] [facility] [id number] [place] [address] Sep, [facility] [id number] [place] [address] Sep, Chest wall pain R07.89 [address] Sore throat J02.9 [facility] [id number] [place] [address] Sep, [facility] [id number] [place] [address] Sep, Sore throat J02.9 and Acute nasopharyngitis J00 [facility] [id number] [place] [address] Sep, [facility] [id number] [place] [address] Aug, Chest wall pain R07.89 [facility] [id number] [place] [address] Jul, Chest wall pain R07.89 [facility] [address] [place] [address] Jul, [facility] [id number] [place] [address] Jul, Chest wall pain R07.89 [facility] [address] [place] [address] Jul, Chest wall pain R07.89 ; Chronic fatigue R53.82 ; Anemia, unspecified type D64.9 ; Vertigo R42 and Coronary artery disease involving [place] coronary artery of [place] heart without angina pectoris I25.10 [facility] [address], [place] [address] Jun, Chest wall pain R07.89 [facility] [address] [facility] [id number] [address] Apr, Chest wall pain R07.89 [facility] [id number] [place] [address] Apr, [facility] [id number] [place] [address] Apr, Dental abscess K04.7 [facility] [id number] [place] [address] Apr, [facility] [id number] [place] [address] Apr, Chest wall pain R07.89 [facility] [id number] [place] [address] Mar, Chest wall pain R07.89 [facility] [id number] [place] [address] 15 Feb, 2017 Chest wall pain R07.89 ; Lateral epicondylitis of right elbow M77.11 and Mixed hyperlipidemia E78.2 [facility] [id number] [place] [address] Feb, Chest wall pain R07.89 [facility] [address] [place] [address] January, [facility] [id number] [place] [address] January, Chest wall pain R07.89 [facility] [id number] [place] [address] Dec, Chest wall pain R07.89 [facility] [id number] [place] [address] 27 Nov, 2016 [facility] [id number] [place] [address] Nov, Hypokalemia E87.6 [facility] [id number] [place] [address] 23 Nov, 2016 Hypokalemia E87.6 and Iron deficiency anemia, unspecified iron deficiency anemia type D50.9 [facility] [address] [address] Nov, [facility] [address] [address] Nov, Nausea R11.[address] [facility] [id number] [place] [address] Nov, [facility] [address] [address] Nov, [facility] [id number] [place] [address] Nov, Chest wall pain R07.89 [facility] [id number] [place] [address] Nov, Bronchitis J40 [facility] [id number] [place] [address] Oct, Chest wall pain R07.89 [facility] [id number] [place] [address] Sep, Chest wall pain R07.89 [facility] [id number] [place] [address] Aug, Chest wall pain R07.89 [facility] [id number] [place] [address] Aug, Chest pain on breathing R07.1 [facility] [address] [place] [address] Jul, [facility] [id number] [place] [address] Jun, [facility] [id number] [place] [address] 16 May, 2016 Chest wall pain R07.89 ; Iron deficiency anemia, unspecified iron deficiency anemia type D50.9 ; Chronic kidney disease N18.9 and Encounter for immunization Z23 [facility] [id number] [place] [address] May, [facility] [address] [address] Apr, [facility] [id number] [place] [address] Mar, [address] [facility] [address] [address] Mar, [facility] [id number] [place] [address] Feb, [facility] [id number] [place] [address] Feb, Iron deficiency anemia, unspecified iron deficiency anemia type D50.9 [facility] [id number] [place] [address] Feb, Dehydration E86.0 ; Diarrhea, unspecified type R19.7 ; Dizziness R42 and Other specified hypotension I95.89 [facility] [id number] [place] [address] Feb, Anemia, unspecified type D64.9 [facility] [id number] [place] [address] January, Anemia, unspecified type D64.9 [facility] [id number] [place] [address] January, Paresthesia R20.2 [facility] [id number] [place] [address] January, Chest wall pain R07.89 [facility] [address] [address] Dec, Insomnia G[address].00 [facility] [address] [address] Dec, Chest pain on breathing R07.1 [facility] [address] [address] Nov, Chest pain on breathing R07.1 [facility] [address] [address] Oct, [facility] [address] [address] Oct, [facility] [address] [address] Oct, Low back pain M54.5 and Chest wall pain R07.89 [address] [facility] [address] [address] Oct, Pleurodynia R07.81 [address] [facility] [address] [address] Sep, Pleurodynia R07.81 and Other nerve root and plexus disorders G54.8 [facility] [address] [address] Aug, Chronic kidney disease N18.9 ; Encounter for immunization Z23 ; Chest wall pain R07.89 ; Urinary frequency R35.[address] [facility] [id number] [place] [address] Aug, [place] [facility] [address] [address] Jul, [facility] [address] [facility] [id number] [address] Jul, [facility] [address] [facility] [id number], [place] [address] Jun, [facility] [address] [facility] [id number], [place] [address] Jun, [facility] [address] [facility] [id number], [place] [address] May, [facility] [address] [facility] [id number], [place] [address] May, [facility] [address], [place] [address] May, [facility] [address], [place] [address] May, Coronary atherosclerosis of unspecified type of vessel, [place] or graft 414.00 [facility] [address], [place] [address] Apr, [facility] [address], [place] [address] Apr, [facility] [address], [place] [address] Apr, [facility] [address], [place] [address] Apr, [facility] [address] [facility] [id number], [place] [address] Apr, [facility] [address] [facility] [id number], [place] [address] Apr, Coronary atherosclerosis of unspecified type of vessel, [place] or graft 414.00 and Left-sided chest wall pain 786.52 [facility] [address] [facility] [id number], [place] [address] Mar, [facility] [address], [place] [address] Mar, [facility] [address] [id number] [place] [address] Feb, [facility] [address] [facility] [id number] [place] [address] Feb, [facility] [address] [facility] [id number] [place] [address] January, [facility] [address] [facility] [id number] [place] [address] January, [facility] [address] [facility] [id number] [place] [address], [place] [address] January, [facility] [id number] [place] [address] January, Neuropathic pain of chest 353.8 [facility] [id number] [place] [address], [place] [address] Dec, [facility] [id number] [place] [address] Dec, [facility] [address] [place] [address] Nov, [facility] [address] [facility] [id number], [place] [address] Nov, [facility] [place] [facility] [address] [facility] [id number] [place] [address] Nov, [facility] [address] [facility] [id number] [place] [address] Nov, [facility] [place] [facility] [address] [facility] [id number] [place] [address] Nov, [facility] [place] [facility] [address] [facility] [id number] [place] [address] Nov, [facility] [place] [facility] [address] [facility] [id number] [place] [address] Oct, [facility] [place] [facility] [address] [id number] [place] [address] Oct, [facility] [place] [facility] [address] [id number] [place] [address] Oct, [facility] [place] [facility] [address] [id number] [place] [address] Oct, [facility] [place] [facility] [address] [id number] [place] [address] Oct, [facility] [place] [facility] [address] [id number] [place] [address] Oct, [facility] [place] [facility] [address] [id number] [place] [address] Sep, [facility] [place] [facility] [address] [id number] [place] [address] Sep, [facility] [place] [facility] [address] [id number] [place] [address] Sep, [facility] [place] [facility] [address] [id number] [place] [address] Sep, [facility] [place] [facility] [address] [facility] [id number] [place] [address] Aug, [facility] [place] [facility] [address] [id number], [place] [address] Aug, [facility] [place] [facility] [address] [id number] [place] [address] Aug, [facility] [place] [facility] [address] [id number] [place] [address] Aug, [facility] [place] [facility] [address] [id number] [place] [address] Aug, [facility] [place] [facility] [address] [id number] [place] [address] Aug, [facility] [place] [facility] [address] [id number] [place] [address] Aug, [facility] [place] [facility] [address] [id number] [place] [address] Aug, [facility] [place] [facility] [address] [id number] [place] [address] Aug, [facility] [place] [facility] [address] [id number] [place] [address] Aug, [facility] [place] [facility] [address] [id number] [place] [address] Jul, [facility] [place] [facility] [address] [id number] [place] [address] Jul, [facility] [place] [facility] [address] [id number] [place] [address] Jul, [facility] [place] [facility] [address] [id number] [place] [address] Jul, [facility] [place] [facility] [address] [id number] [place] [address] Jun, [facility] [place] [facility] [address] [id number] [place] [address] Jun, [facility] [place] [facility] [address] [facility] [id number] [place] [address] Jun, [facility] [place] [facility] [address] [id number] [place] [address] Jun, [facility] [place] [facility] [address] [id number] [place] [address] May, [facility] [place] [facility] [address] [id number] [place] [address] May, [facility] [place] [facility] [address] [id number] [place] [address] May, [facility] [place] [facility] [address] [id number] [place] [address] May, [facility] [place] [facility] [address] [id number] [place] [address] Apr, [facility] [place] [facility] [address] [id number] [place] [address] Apr, [facility] [place] [facility] [address] [id number] [place] [address] Feb, [facility] [place] [facility] [address] [id number] [place] [address] January, [facility] [place] [facility] [address] [id number] [place] [address] January, [facility] [place] [facility] [address] [id number] [place] [address] January, [facility] [place] [facility] [address] [id number] [place] [address] January, [facility] [place] [facility] [address] [id number] [place] [address] January, [facility] [place] [facility] [address] [id number] [place] [address] January, [facility] [place] [facility] [address] [id number] [place] [address] Dec, [facility] [place] [facility] [address] [id number] [place] [address] Dec, [facility] [place] [facility] [address] [id number] [place] [address] Dec, [facility] [place] [facility] [address] [id number] [place] [address] Dec, [facility] [place] [facility] [address] [id number] [place] [address] Dec, [facility] [place] [facility] [address] [id number] [place] [address] Dec, [facility] [place] [facility] [address] [id number] [place] [address] Dec, [facility] [place] [facility] [address] [id number] [place] [address] Dec, [facility] [place] [facility] [address] [id number] [place] [address] Nov, [facility] [place] [facility] [address] [id number] [place] [address] Nov, [facility] [place] [facility] [address] [id number] [place] [address] Nov, [facility] [place] [facility] [address] [id number] [place] [address] Nov, [facility] [place] [facility] [address] [id number] [place] [address] Nov, [facility] [place] [facility] [address] [id number] [place] [address] Nov, [facility] [place] [facility] [address] [id number] [place] [address] Nov, [facility] [place] [facility] [address] [id number] [place] [address] Oct, [facility] [place] [facility] [address] [id number] [place] [address] Oct, [facility] [place] [facility] [address] [id number] [place] [address] Oct, [facility] [place] [facility] [address] [id number] [place] [address] Oct, [facility] [place] [facility] [address] [id number] [place] [address] Sep, [facility] [place] [facility] [address] [id number] [place] [address] Sep, [facility] [place] [facility] [address] [id number] [place] [address] Sep, [facility] [place] [facility] [address] [id number] [place] [address] Sep, [facility] [place] [facility] [address] [id number] [place] [address] Aug, [facility] [place] [facility] [address] [id number] [place] [address] Aug, [facility] [place] [facility] [address] [id number] [place] [address] Jul, [facility] [place] [facility] [address] [id number] [place] [address] Jul, [facility] [place] [facility] [address] [id number] [place] [address] Jun, [facility] [place] [facility] [address] [id number] [place] [address] Jun, [facility] [place] [facility] [address] [id number] [place] [address] Jun, [facility] [place] [facility] [address] [id number] [place] [address] May, [facility] [place] [facility] [address] [id number] [place] [address] Apr, [facility] [place] [facility] [address] [id number] [place] [address] Apr, [facility] [place] [facility] [address] [id number] [place] [address] Mar, [facility] [place] [facility] [address] [id number] [place] [address] Feb, [facility] [place] [facility] [address] [id number] [place] [address] Feb, [facility] [place] [facility] [address] [id number] [place] [address] January, [facility] [place] [facility] [address] [id number] [place] [address] January, [facility] [address] [id number] [place] [address] Dec, [facility] [place] [facility] [address] [id number] [place] [address] Dec, [facility] [address] [id number] [place] [address] Dec, [facility] [place] [facility] [address] [id number] [place] [address] Dec, [facility] [address] [id number] [place] [address] Nov, [facility] [facility] [address] [id number] [place] [address] Nov, [facility] [address] [id number] [place] [address] Oct, [facility] [place] [facility] [address] [id number] [place] [address] Oct, [facility] [address] [id number] [place] [address] Oct, [facility] [place] [facility] [address] [id number] [place] [address] Sep, [facility] [place] [facility] [address] [id number] [place] [address] Sep, [facility] [place] [facility] [address] [id number] [place] [address] Sep, [facility] [place] [facility] [address] [id number] [place] [address] Sep, [facility] [place] [facility] [address] [facility] [id number] [place] [address] Sep, [facility] [place] [facility] [address] [id number] [place] [address] Aug, [facility] [place] [facility] [address] [id number] [place] [address] Aug, [facility] [address] [id number] [place] [address] Aug, [facility] [place] [facility] [address] [id number] [place] [address] Aug, [facility] [address] [id number] [place] [address] Jul, [facility] [place] [facility] [address] [id number] [place] [address] Jul, [facility] [address] [id number] [place] [address] Jul, [facility] [place] [facility] [address] [id number] [place] [address] Jul, [facility] [place] [facility] [address] [facility] [id number] [place] [address] Jun, [facility] [place] [facility] [address] [id number] [place] [address] Jun, [facility] [place] [facility] [address] [facility] [id number] [place] [address] Jun, [facility] [address] [facility] [id number] [place] [address] Jun, [facility] [place] [facility] [address] [id number] [place] [address] Jun, [facility] [place] [facility] [address] [id number] [place] [address] 24 May, 2012 [facility] [place] [facility] [address] [id number] [place] [address] 13 May, 2012 [facility] [place] [facility] [address] [facility] [id number] [place] [address] 12 May, 2012 [facility] [place] [facility] [address] [facility] [id number] [place] [address] 11 May, 2012 [facility] [place] [facility] [address] [id number] [place] [address] 10 May, 2012 [facility] [place] [facility] [address] [id number] [place] [address] May, [facility] [place] [facility] [address] [id number] [place] [address] 05 May, 2012 [facility] [place] [facility] [address] [id number] [place] [address] Apr, [facility] [place] [facility] [address] [id number] [place] [address] Apr, [facility] [place] [facility] [address] [id number] [place] [address] Apr, [facility] [place] [facility] [address] [id number] [place] [address] Apr, [facility] [place] [facility] [address] [id number] [place] [address] Apr, [facility] [place] [facility] [address] [id number] [place] [address] Apr, [facility] [place] [facility] [address] [id number] [place] [address] Apr, [facility] [place] [facility] [address] [id number] [place] [address] Apr, [facility] [place] [facility] [address] [id number] [place] [address] Mar, [facility] [place] [facility] [address] [id number] [place] [address] Mar, [facility] [place] [facility] [address] [id number] [place] [address] Mar, [facility] [place] [facility] [address] [id number] [place] [address] Feb, [facility] [place] [address] [id number] [address] January, [facility] [id number] [address] January, [facility] [address] [id number] [address] January, [facility] [id number] [address] Dec, [facility] [id number] [address] Dec, [facility] [id number] [address] Dec, [facility] [id number] [address] Dec, [facility] [id number], [place] [address] Dec, [facility] [address] [id number] [address] Dec, IMMUNIZATIONS No Known Immunizations SOCIAL HISTORY Never Assessed REASON FOR VISIT [facility] [place] VITAL SIGNS MEDICATIONS Unknown [...] 04/02/2012 Surgical History appendectomy age 10 at [facility] Surgical History cholecystectomy-[facility] [facility] 2007 Surgical History coronary artery bypass graft LAD 02/2012 Surgical History heart cath x2 after bypass, pt has 5 stents Hospitalization History Chest pain, dizziness, renal insuff, heat cath showed CAD ([facility]) 01/03/2012 Hospitalization History CABG ([facility]) Dr. Banks 02/2012
--- OUTSIDE RECORDS SUMMARY | 2019-05-03 09:26 | XMS REPORT ---
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 pectoris I25.10 Active 7908363818494 Problem Chronic fatigue R53.82 Active 23599671 Problem Vertigo R42 Active 254242787 Problem Anemia, unspecified type D64.9 Active 177249190 Problem Iron deficiency anemia, unspecified iron deficiency anemia type D50.9 Active 84109133 Problem Mixed hyperlipidemia E78.2 Active 604028851 ALLERGIES No Information ENCOUNTERS Encounter Location Date Diagnosis [place] [id number] [place] [address] January, [place] [id number] [place] [address] Dec, Chest wall pain R07.89 [facility] [id number] [place] [address] Nov, Chest wall pain R07.89 [facility] [id number] [place] [address] Nov, [facility] [id number] [place] [address] Oct, Chest wall pain R07.89 [facility] [id number] [place] [address] Oct, Encounter for immunization Z23 [facility] [id number] [place] [address] Sep, [facility] [address], [place] [address] Sep, Chest wall pain R07.89 [facility] [address], [place] [address] Aug, Chest wall pain R07.89 [facility] [id number] [place] [address] Jul, Chest wall pain R07.89 [facility] [id number] [place] [address] Jun, Chest wall pain R07.89 [facility] [id number] [place] [address] Jun, [facility] [id number] [place] [address] Jun, Encounter for immunization Z23 [facility] [id number] [place] [address] Jun, Chest wall pain R07.89 [facility] [id number] [place] [address] Jun, Encounter for immunization Z23 [facility] [id number] [place] [address] May, [facility] [id number] [place] [address] 11 May, 2018 Medicare annual wellness visit, initial Z00.00 ; Chest wall pain R07.89 ; Mixed hyperlipidemia E78.2 ; 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 angina pectoris I25.10 ; History of smoking Z87.891 and Chronic kidney disease N18.9 [facility] [id number] [place] [address] May, Chest wall pain R07.89 [facility] [id number] [place] [address] Apr, Chest wall pain R07.89 [facility] [address], [place] [address] Apr, [facility] [id number] [place] [address] Apr, Chest wall pain R07.89 ; Chronic kidney disease N18.9 ; Iron deficiency anemia, unspecified iron deficiency anemia type D50.9 ; Chronic fatigue R53.82 ; 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 angina pectoris I25.10 and Anemia, unspecified type D64.9 [facility] [id number] [place] [address] Apr, Chest wall pain R07.89 [facility] [id number] [place] [address] Mar, Chest wall pain R07.89 [facility] [id number] [place] [address] Feb, Chest wall pain R07.89 [facility] [id number] [place] [address] January, Chest wall pain R07.89 [facility] [place] [id number] [place] [address] Dec, Chest wall pain R07.89 ; 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 angina pectoris I25.10 and Vertigo R42 [facility] [place] [address], [place] [address] Dec, Chest wall pain R07.89 [facility] [id number] [place] [address] Nov, Chest wall pain R07.89 [facility] [place] [id number] [place] [address] Oct, Chest wall pain R07.89 [facility] [place] [id number] [place] [address] Sep, Chest wall pain R07.89 and Pleurodynia R07.81 [facility] [id number] [place] [address] Sep, [facility] [id number] [place] [address] Sep, Chest wall pain R07.89 and Sore throat J02.9 [facility] [id number] [place] [address] Sep, [facility] [id number] [place] [address] Sep, Sore throat J02.9 and Acute nasopharyngitis J00 [facility] [id number] [place] [address] Sep, [facility] [id number] [place] [address] Aug, Chest wall pain R07.89 [facility] [id number] [place] [address] Jul, Chest wall pain R07.89 [facility] [id number] [place] [address] Jul, [facility] [id number] [place] [address] Jul, Chest wall pain R07.89 [facility] [id number] [place] [address] 06 Jul, 2017 Chest wall pain R07.89 ; Chronic fatigue R53.82 ; Anemia, unspecified type D64.9 ; Vertigo R42 and 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 angina pectoris I25.10 [facility] [id number] [place] [address] Jun, Chest wall pain R07.89 [facility] [id number] [place] [address] Apr, Chest wall pain R07.89 [facility] [id number] [place] [address] Apr, [facility] [id number] [place] [address] Apr, Dental abscess K04.7 [facility] [id number] [place] [address] Apr, [facility] [id number] [place] [address] Apr, Chest wall pain R07.89 [facility] [id number] [place] [address] Mar, Chest wall pain R07.89 [facility] [id number] [place] [address] Feb, Chest wall pain R07.89 ; Lateral epicondylitis of right elbow M77.11 and Mixed hyperlipidemia E78.2 [facility] [id number] [place] [address] Feb, Chest wall pain R07.89 [facility] [id number] [place] [address] January, [facility] [id number] [place] [address] January, Chest wall pain R07.89 [facility] [id number] [place] [address] Dec, Chest wall pain R07.89 [facility] [id number] [place] [address] Nov, [facility] [id number] [place] [address] Nov, Hypokalemia E87.6 [facility] [id number] [place] [address] Nov, Hypokalemia E87.6 and Iron deficiency anemia, unspecified iron deficiency anemia type D50.9 [facility] [id number] [place] [address] Nov, [facility] [id number] [place] [address] Nov, Nausea R11.0 and Hypovolemia E86.1 [facility] [id number] [place] [address] Nov, [facility] [address] [address] Nov, [facility] [id number] [place] [address] Nov, Chest wall pain R07.89 [facility] [address] [address] Nov, Bronchitis J40 [facility] [id number] [place] [address] Oct, Chest wall pain R07.89 [facility] [id number] [place] [address] Sep, Chest wall pain R07.89 [facility] [id number] [place] [address] Aug, Chest wall pain R07.89 [facility] [id number] [place] [address] Aug, Chest pain on breathing R07.1 [facility] [id number] [place] [address] Jul, [facility] [id number] [place] [address] 07 Jun, 2016 [facility] [id number] [place] [address] May, Chest wall pain R07.89 ; Iron deficiency anemia, unspecified iron deficiency anemia type D50.9 ; Chronic kidney disease N18.9 and Encounter for immunization Z23 [facility] [id number] [place] [address] May, [facility] [id number] [place] [address] Apr, [facility] [address] [address] Mar, [place] [address] [address] Mar, [place] [address] [address] Feb, [place] [address] [address] Feb, Iron deficiency anemia, unspecified iron deficiency anemia type D50.9 [facility] [id number] [place] [address] Feb, Dehydration E86.0 ; Diarrhea, unspecified type R19.7 ; Dizziness R42 and Other specified hypotension I95.89 [place] [place] [id number] [place] [address] Feb, Anemia, unspecified type D64.9 [place] [place] [id number] [place] [address] January, Anemia, unspecified type D64.9 [place] [place] [id number] [place] [address] January, Paresthesia R20.2 [facility] [id number] [place] [address] January, Chest wall pain R07.89 [facility] [id number] [place] [address] Dec, Insomnia G47.00 [facility] [id number] [place] [address] Dec, Chest pain on breathing R07.1 [facility] [id number] [place] [address] Nov, Chest pain on breathing R07.1 [facility] [address] [address] Oct, [facility] [address] [address] Oct, [facility] [address] [address] Oct, Low back pain M54.5 and Chest wall pain R07.89 [facility] [address] [address] Oct, Pleurodynia R07.81 [facility] [address] [address] Sep, Pleurodynia R07.81 and Other nerve root and plexus disorders G54.8 [facility] [id number] [place] [address] Aug, Chronic kidney disease N18.9 ; Encounter for immunization Z23 ; Chest wall pain R07.89 ; Urinary frequency R35.0 and Vertigo R42 [facility] [id number] [place] [address] Aug, [facility] [id number] [place] [address] Jul, [facility] [address] [address] Jul, [facility] [id number] [place] [address] Jun, [facility] [address] [place] [address] Jun, [facility] [address] [id number], [place] [address] May, [facility] [address] [facility] [id number], [place] [address] May, [facility] [address] [facility] [id number], [place] [address] May, [facility] [address] [facility] [id number], [place] [address] May, Coronary atherosclerosis of unspecified type of vessel, kaw or graft 414.00 [facility] [address] [id number], [place] [address] Apr, [facility] [address] [facility] [id number], [place] [address] Apr, [facility] [address] [facility] [id number], [place] [address] Apr, [facility] [id number], [place] [address] Apr, [facility] [id number], [place] [address] Apr, [facility] [id number], [place] [address] Apr, Coronary atherosclerosis of unspecified type of vessel, kaw or graft 414.00 and Left-sided chest wall pain 786.52 [facility] [address] [id number], [place] [address] Mar, [facility] [address] [facility] [id number], [place] [address] Mar, [facility] [address] [facility] [id number], [place] [address] Feb, [facility] [id number], [place] [address] Feb, [facility] [address] [facility] [id number] [place] [address] January, [facility] [address] [facility] [id number] [place] [address] January, [facility] [address] [place] [address] January, [facility] [address] [facility] [id number] [place] [address], [place] [address] January, Neuropathic pain of chest 353.8 [facility] [address] [id number] [place] [address] Dec, [facility] [address] [facility] [id number] [place] [address] Dec, [facility] [id number] [place] [address] Nov, [facility] [address] [facility] [id number] [place] [address] Nov, [facility] [address] [place] [address] Nov, [facility] [address], [place] [address] Nov, [facility] [id number], [place] [address] Nov, [facility] [address] [facility] [id number], [place] [address] Nov, [facility] [address] [facility] [id number], [place] [address] Oct, [facility] [address] [facility] [id number], [place] [address] Oct, [facility] [id number], [place] [address] Oct, [facility] [place] [facility] [address] [id number] [place] [address] Oct, [facility] [place] [facility] [address] [id number] [place] [address] Oct, [facility] [place] [facility] [address] [id number] [place] [address] Oct, [facility] [place] [facility] [address] [id number] [place] [address] Sep, [facility] [place] [facility] [address] [id number] [place] [address] Sep, [facility] [place] [facility] [address] [id number] [place] [address] Sep, [facility] [place] [facility] [address] [id number] [place] [address] Sep, [facility] [place] [facility] [address] [id number] [place] [address] Aug, [facility] [place] [facility] [address] [id number] [place] [address] Aug, [facility] [place] [facility] [address] [id number] [place] [address] Aug, [facility] [place] [facility] [address] [id number] [place] [address] Aug, [facility] [place] [facility] [address] [id number] [place] [address] Aug, [facility] [place] [facility] [address] [id number] [place] [address] Aug, [facility] [place] [facility] [address] [id number] [place] [address] Aug, [facility] [place] [facility] [address] [id number] [place] [address] Aug, [facility] [place] [facility] [address] [id number] [place] [address] Aug, [facility] [place] [facility] [address] [id number] [place] [address] Aug, [facility] [place] [facility] [address] [id number] [place] [address] Jul, [facility] [place] [facility] [address] [id number] [place] [address] Jul, [facility] [place] [facility] [address] [id number] [place] [address] Jul, [facility] [place] [facility] [address] [id number] [place] [address] Jul, [facility] [place] [facility] [address] [id number] [place] [address] Jun, [facility] [place] [facility] [address] [id number] [place] [address] Jun, [facility] [place] [facility] [address] [id number] [place] [address] Jun, [facility] [place] [facility] [address] [id number] [place] [address] Jun, [facility] [place] [facility] [address] [id number] [place] [address] May, [facility] [place] [facility] [address] [id number] [place] [address] May, [facility] [place] [facility] [address] [id number] [place] [address] May, [facility] [place] [facility] [address] [id number] [place] [address] May, [facility] [place] [facility] [address] [id number] [place] [address] Apr, [facility] [place] [facility] [address] [id number] [place] [address] Apr, [facility] [place] [facility] [address] [id number] [place] [address] Feb, [facility] [address] [id number] [place] [address] January, [facility] [address] [id number] [place] [address] January, [facility] [address] [id number] [place] [address] January, [facility] [address] [id number] [place] [address] January, [facility] [address] [id number] [place] [address] January, [facility] [address] [id number] [place] [address] January, [facility] [address] [id number] [place] [address] Dec, [facility] [address] [id number] [place] [address] Dec, [facility] [address] [id number] [place] [address] Dec, [facility] [address] [id number] [place] [address] Dec, [facility] [place] [facility] [address] [id number] [place] [address] Dec, [facility] [place] [facility] [address] [id number] [place] [address] Dec, [facility] [place] [facility] [address] [id number] [place] [address] Dec, [facility] [place] [facility] [address] [id number] [place] [address] Dec, [facility] [place] [facility] [address] [id number] [place] [address] Nov, [facility] [place] [facility] [address] [id number] [place] [address] Nov, [facility] [place] [facility] [address] [id number] [place] [address] Nov, [facility] [place] [facility] [address] [id number] [place] [address] Nov, [facility] [place] [facility] [address] [id number] [place] [address] Nov, [facility] [place] [facility] [address] [id number] [place] [address] Nov, [facility] [place] [facility] [address] [id number] [place] [address] Nov, [facility] [place] [facility] [address] [id number] [place] [address] Oct, [facility] [place] [facility] [address] [id number] [place] [address] Oct, [facility] [place] [facility] [address] [id number] [place] [address] Oct, [facility] [place] [facility] [address] [id number] [place] [address] Oct, [facility] [place] [facility] [address] [id number] [place] [address] Sep, [facility] [place] [facility] [address] [id number] [place] [address] Sep, [facility] [place] [facility] [address] [id number] [place] [address] Sep, [facility] [place] [facility] [address] [id number] [place] [address] Sep, [facility] [place] [facility] [address] [id number] [place] [address] Aug, [facility] [place] [facility] [address] [id number] [place] [address] Aug, [facility] [address] [id number] [place] [address] Jul, [facility] [place] [facility] [address] [id number] [place] [address] Jul, [facility] [place] [facility] [address] [id number] [place] [address] Jun, [facility] [place] [facility] [address] [id number] [place] [address] Jun, [facility] [place] [facility] [address] [id number] [place] [address] Jun, [facility] [place] [facility] [address] [id number] [place] [address] May, [facility] [place] [facility] [address] [id number] [place] [address] Apr, [facility] [place] [facility] [address] [id number] [place] [address] Apr, [facility] [place] [facility] [address] [id number] [place] [address] Mar, [facility] [place] [facility] [address] [id number] [place] [address] Feb, [facility] [place] [facility] [address] [id number] [place] [address] Feb, [facility] [place] [facility] [address] [id number] [place] [address] January, [facility] [place] [facility] [address] [id number] [place] [address] January, [facility] [place] [facility] [address] [id number] [place] [address] Dec, [facility] [place] [facility] [address] [id number] [place] [address] Dec, [facility] [place] [facility] [address] [id number] [place] [address] Dec, [facility] [address] [id number] [place] [address] Dec, [facility] [address] [id number] [place] [address] Nov, [facility] [place] [facility] [address] [id number] [place] [address] Nov, [facility] [address] [id number] [place] [address] Oct, [facility] [place] [facility] [address] [id number] [place] [address] Oct, [facility] [address] [id number] [place] [address] Oct, [facility] [address] [id number] [place] [address] Sep, [facility] [address] [id number] [place] [address] Sep, [facility] [address] [id number] [place] [address] Sep, [facility] [address] [id number] [place] [address] Sep, [facility] [address] [id number], [place] [address] Sep, [facility] [place] [facility] [address] [id number] [place] [address] Aug, [facility] [place] [facility] [address] [id number] [place] [address] Aug, [facility] [place] [facility] [address] [id number] [place] [address] Aug, [facility] [place] [facility] [address] [id number], [place] [address] 14 Aug, 2012 [facility] [place] [facility] [address] [id number] [place] [address] Jul, [facility] [place] [facility] [address] [facility] [id number], [place] [address] Jul, [facility] [place] [facility] [id number] [place] [address] Jul, [facility] [place] [facility] [address] [facility] [id number] [place] [address] Jul, [facility] [place] [facility] [id number] [place] [address], [place] [address] Jun, [facility] [place] [facility] [address] [facility] [id number] [place] [address] Jun, [facility] [place] [facility] [id number] [place] [address] Jun, [facility] [place] [facility] [address] [facility] [id number] [place] [address] Jun, [facility] [place] [facility] [address] [id number], [place] [address] Jun, [facility] [place] [facility] [address] [id number], [place] [address] 24 May, 2012 [facility] [place] [facility] [id number], [place] [address] 13 Sep2011 [facility] [place] [facility] [address] [facility] [id number], [place] [address] 12 Sep2011 [facility] [place] [facility] [address] [facility] [id number], [place] [address] 11 Sep2011 [facility] [place] [facility] [address] [facility] [id number], [place] [address] 10 May, 2012 [facility] [place] [facility] [address] [id number], [place] [address] 06 Sep2011 [facility] [place] [facility] [address] [id number] [place] [address] May, [facility] [place] [facility] [address] [id number] [place] [address] Apr, [facility] [place] [facility] [address] [id number] [place] [address] Apr, [facility] [place] [facility] [address] [id number] [place] [address] Apr, [facility] [place] [facility] [address] [id number] [place] [address] Apr, [facility] [place] [facility] [address] [id number] [place] [address] Apr, [facility] [place] [facility] [address] [id number] [place] [address] Apr, [facility] [place] [facility] [address] [id number] [place] [address] Apr, [facility] [place] [facility] [address] [id number] [place] [address] Apr, [facility] [place] [facility] [address] [id number] [place] [address] Mar, [facility] [place] [facility] [address] [id number] [place] [address] Mar, [facility] [place] [facility] [address] [id number] [place] [address] Mar, [facility] [place] [facility] [address] [id number] [place] [address] Feb, [facility] [place] [facility] [address] [id number] [place] [address] January, [facility] [place] [facility] [address] [id number] [place] [address] January, [facility] [place] [facility] [address] [id number] [place] [address] January, [facility] [address] [facility] [id number], [place] [address] Dec, [facility] [address] [facility] [id number], [place] [address] Dec, [facility] [address] [facility] [id number], [place] [address] Dec, [facility] [id number], [place] [address] Dec, [facility] [address] [facility] [id number], [place] [address] Dec, [facility] [address] [facility] [id number], [place] [address] Dec, IMMUNIZATIONS No Known Immunizations SOCIAL HISTORY Never Assessed REASON FOR VISIT [place] [place] VITAL SIGNS MEDICATIONS Unknown [...] dizziness, renal insuff, heat cath showed CAD ([facility]) 01/03/2012 Hospitalization History CABG ([facility]ji) Dr. Banks 02/2012
--- OUTSIDE RECORDS SUMMARY | 2019-05-03 09:26 | XMS REPORT ---
Author Author Migration, Doctor Organization [facility] Address Unknown Phone Unavailable Care Team Providers Care Revenue Field Auditor Name Role Phone Migration, Doctor Unavailable Unavailable PROBLEMS Type Condition ICD9-CM Code JTC28-FV Code Onset Dates Condition Status SNOMED Code Problem Centrilobular emphysema J43.2 Active 69475519 Problem Chest wall pain R07.89 Active 782486669 Problem Chronic kidney disease N18.9 Active 819838450 Problem Coronary artery disease involving nuiqsut coronary artery of nuiqsut heart without angina pectoris I25.10 Active 8223152082838 Problem Chronic fatigue R53.82 Active 63792683 Problem Vertigo R42 Active 279208919 Problem Anemia, unspecified type D64.9 Active 715883300 Problem Iron deficiency anemia, unspecified iron deficiency anemia type D50.9 Active 34396940 Problem Mixed hyperlipidemia E78.2 Active 724893563 ALLERGIES No Information ENCOUNTERS Encounter Location Date Diagnosis [facility] [id number] [place] [address] January, [facility] [id number] [place] [address] Dec, Chest wall pain R07.89 [facility] [id number] [place] [address] Nov, Chest wall pain R07.89 [facility] [id number] [place] [address] Nov, [facility] [id number] [place] [address] Oct, Chest wall pain R07.89 [facility] [id number] [place] [address] Oct, Encounter for immunization Z23 [facility] [id number] [place] [address] Sep, [facility] [address] [address] Sep, Chest wall pain R07.89 [facility] [address] [address] Aug, Chest wall pain R07.89 [facility] [id number] [place] [address] Jul, Chest wall pain R07.89 [facility] [id number] [place] [address] Jun, Chest wall pain R07.89 [facility] [id number] [place] [address] Jun, [facility] [id number] [place] [address] Jun, Encounter for immunization Z23 [facility] [id number] [place] [address] Jun, Chest wall pain R07.89 [facility] [id number] [place] [address] Jun, Encounter for immunization Z23 [facility] [id number] [place] [address] May, [facility] [id number] [place] [address] 11 May, 2018 Medicare annual wellness visit, initial Z00.00 ; Chest wall pain R07.89 ; Mixed hyperlipidemia E78.2 ; Coronary artery disease involving nuiqsut coronary artery of nuiqsut heart without angina pectoris I25.10 ; History of smoking Z87.891 and Chronic kidney disease N18.9 [facility] [id number] [place] [address] May, Chest wall pain R07.89 [facility] [id number] [place] [address] Apr, Chest wall pain R07.89 [facility] [address] [address] Apr, [facility] [id number] [place] [address] Apr, Chest wall pain R07.89 ; Chronic kidney disease N18.9 ; Iron deficiency anemia, unspecified iron deficiency anemia type D50.9 ; Chronic fatigue R53.82 ; Coronary artery disease involving nuiqsut coronary artery of nuiqsut heart without angina pectoris I25.10 and Anemia, unspecified type D64.9 [facility] [id number] [place] [address] Apr, Chest wall pain R07.89 [facility] [id number] [place] [address] Mar, Chest wall pain R07.89 [facility] [id number] [place] [address] Feb, Chest wall pain R07.89 [facility] [id number] [place] [address] January, Chest wall pain R07.89 [facility] [id number] [place] [address] Dec, Chest wall pain R07.89 ; Coronary artery disease involving nuiqsut coronary artery of nuiqsut heart without angina pectoris I25.10 and Vertigo R42 [facility] [address] [address] Dec, Chest wall pain R07.89 [facility] [id number] [place] [address] Nov, Chest wall pain R07.89 [facility] [id number] [place] [address] Oct, Chest wall pain R07.89 [facility] [id number] [place] [address] Sep, Chest wall pain R07.89 and Pleurodynia R07.81 [facility] [id number] [place] [address] Sep, [facility] [id number] [place] [address] Sep, Chest wall pain R07.89 and Sore throat J02.9 [facility] [id number] [place] [address] Sep, [facility] [id number] [place] [address] Sep, Sore throat J02.9 and Acute nasopharyngitis J00 [facility] [id number] [place] [address] Sep, [facility] [id number] [place] [address] Aug, Chest wall pain R07.89 [facility] [id number] [place] [address] Jul, Chest wall pain R07.89 [facility] [id number] [place] [address] Jul, [facility] [id number] [place] [address] Jul, Chest wall pain R07.89 [facility] [id number] [place] [address] 06 Jul, 2017 Chest wall pain R07.89 ; Chronic fatigue R53.82 ; Anemia, unspecified type D64.9 ; Vertigo R42 and Coronary artery disease involving nuiqsut coronary artery of nuiqsut heart without angina pectoris I25.10 [facility] [id number] [place] [address] Jun, Chest wall pain R07.89 [facility] [id number] [place] [address] Apr, Chest wall pain R07.89 [facility] [id number] [place] [address] Apr, [facility] [id number] [place] [address] Apr, Dental abscess K04.7 [facility] [id number] [place] [address] Apr, [facility] [id number] [place] [address] Apr, Chest wall pain R07.89 [facility] [id number] [place] [address] Mar, Chest wall pain R07.89 [facility] [id number] [place] [address] Feb, Chest wall pain R07.89 ; Lateral epicondylitis of right elbow M77.11 and Mixed hyperlipidemia E78.2 [facility] [id number] [place] [address] Feb, Chest wall pain R07.89 [facility] [id number] [place] [address] January, [facility] [id number] [place] [address] January, Chest wall pain R07.89 [facility] [id number] [place] [address] Dec, Chest wall pain R07.89 [facility] [id number] [place] [address] Nov, [facility] [id number] [place] [address] Nov, Hypokalemia E87.6 [facility] [id number] [place] [address] Nov, Hypokalemia E87.6 and Iron deficiency anemia, unspecified iron deficiency anemia type D50.9 [facility] [id number] [place] [address] Nov, [facility] [id number] [place] [address] Nov, Nausea R11.0 and Hypovolemia E86.1 [facility] [id number] [place] [address] Nov, [facility] [address] [address] Nov, [facility] [id number] [place] [address] Nov, Chest wall pain R07.89 [facility] [address] [address] Nov, Bronchitis J40 [facility] [id number] [place] [address] Oct, Chest wall pain R07.89 [facility] [id number] [place] [address] Sep, Chest wall pain R07.89 [facility] [id number] [place] [address] Aug, Chest wall pain R07.89 [facility] [id number] [place] [address] Aug, Chest pain on breathing R07.1 [facility] [id number] [place] [address] Jul, [facility] [id number] [place] [address] 07 Jun, 2016 [facility] [id number] [place] [address] May, Chest wall pain R07.89 ; Iron deficiency anemia, unspecified iron deficiency anemia type D50.9 ; Chronic kidney disease N18.9 and Encounter for immunization Z23 [facility] [id number] [place] [address] May, [facility] [id number] [place] [address] Apr, [facility] [address] [address] Mar, [place] [address] [address] Mar, [facility] [address] [address] Feb, [place] [facility] [address] [address] Feb, Iron deficiency anemia, unspecified iron deficiency anemia type D50.9 [facility] [id number] [place] [address] Feb, Dehydration E86.0 ; Diarrhea, unspecified type R19.7 ; Dizziness R42 and Other specified hypotension I95.89 [facility] [id number] [place] [address] Feb, Anemia, unspecified type D64.9 [place] [facility] [id number] [place] [address] January, Anemia, unspecified type D64.9 [place] [id number] [place] [address] January, Paresthesia R20.2 [facility] [id number] [place] [address] January, Chest wall pain R07.89 [facility] [id number] [place] [address] Dec, Insomnia G47.00 [facility] [id number] [place] [address] Dec, Chest pain on breathing R07.1 [facility] [id number] [place] [address] Nov, Chest pain on breathing R07.1 [facility] [address] [address] Oct, [facility] [address] [address] Oct, [facility] [address] [address] Oct, Low back pain M54.5 and Chest wall pain R07.89 [facility] [address] [address] Oct, Pleurodynia R07.81 [facility] [address] [address] Sep, Pleurodynia R07.81 and Other nerve root and plexus disorders G54.8 [facility] [id number] [place] [address] Aug, Chronic kidney disease N18.9 ; Encounter for immunization Z23 ; Chest wall pain R07.89 ; Urinary frequency R35.0 and Vertigo R42 [facility] [id number] [place] [address] Aug, [facility] [id number] [place] [address] Jul, [facility] [address] [address] Jul, [facility] [id number] [place] [address] Jun, [facility] [address] [place] [address] Jun, [facility] [address] [id number] [address] May, [facility] [address] [facility] [id number] [address] May, [facility] [address] [facility] [id number] [address] May, [facility] [address] [facility] [id number] [address] May, Coronary atherosclerosis of unspecified type of vessel, nuiqsut or graft 414.00 [facility] [address] [id number] [address] Apr, [facility] [address] [facility] [id number] [address] Apr, [facility] [address] [facility] [id number] [place] [address] Apr, [facility] [id number] [address] Apr, [facility] [id number] [address] Apr, [facility] [id number] [address] Apr, Coronary atherosclerosis of unspecified type of vessel, nuiqsut or graft 414.00 and Left-sided chest wall pain 786.52 [facility] [address] [id number] [address] Mar, [facility] [address] [facility] [id number] [place] [address] Mar, [facility] [address] [facility] [id number] [place] [address] Feb, [facility] [id number] [address] Feb, [facility] [address] [facility] [id number] [place] [address] January, [facility] [address] [facility] [id number] [place] [address] January, [facility] [address] [place] [address] January, [facility] [address] [facility] [id number] [place] [address], [place] [address] January, Neuropathic pain of chest 353.8 [facility] [address] [id number] [place] [address] Dec, [facility] [address] [facility] [id number] [place] [address] Dec, [facility] [id number] [place] [address] Nov, [facility] [address] [facility] [id number] [place] [address] Nov, [facility] [address] [place] [address] Nov, [facility] [address] [address] Nov, [facility] [address] [id number] [address] Nov, [facility] [address] [facility] [id number] [place] [address] Nov, [facility] [address] [facility] [id number] [place] [address] Oct, [facility] [address] [facility] [id number] [place] [address] Oct, [facility] [address] [id number] [address] Oct, [facility] [place] [facility] [address] [id number] [place] [address] Oct, [facility] [place] [facility] [address] [id number] [place] [address] Oct, [facility] [place] [facility] [address] [id number] [place] [address] Oct, [facility] [place] [facility] [address] [id number] [place] [address] Sep, [facility] [place] [facility] [address] [id number] [place] [address] Sep, [facility] [place] [facility] [address] [id number] [place] [address] Sep, [facility] [place] [facility] [address] [id number] [place] [address] Sep, [facility] [place] [facility] [address] [id number] [place] [address] Aug, [facility] [place] [facility] [address] [id number] [place] [address] Aug, [facility] [place] [facility] [address] [id number] [place] [address] Aug, [facility] [place] [facility] [address] [id number] [place] [address] Aug, [facility] [place] [facility] [address] [id number] [place] [address] Aug, [facility] [place] [facility] [address] [id number] [place] [address] Aug, [facility] [place] [facility] [address] [id number] [place] [address] Aug, [facility] [place] [facility] [address] [id number] [place] [address] Aug, [facility] [place] [facility] [address] [id number] [place] [address] Aug, [facility] [place] [facility] [address] [id number] [place] [address] Aug, [facility] [place] [facility] [address] [id number] [place] [address] Jul, [facility] [place] [facility] [address] [id number] [place] [address] Jul, [facility] [place] [facility] [address] [id number] [place] [address] Jul, [facility] [place] [facility] [address] [id number] [place] [address] Jul, [facility] [place] [facility] [address] [id number] [place] [address] Jun, [facility] [place] [facility] [address] [id number] [place] [address] Jun, [facility] [place] [facility] [address] [id number] [place] [address] Jun, [facility] [place] [facility] [address] [id number] [place] [address] Jun, [facility] [place] [facility] [address] [id number] [place] [address] May, [facility] [place] [facility] [address] [id number] [place] [address] May, [facility] [place] [facility] [address] [id number] [place] [address] May, [facility] [place] [facility] [address] [id number] [place] [address] May, [facility] [place] [facility] [address] [id number] [place] [address] Apr, [facility] [place] [facility] [address] [id number] [place] [address] Apr, [facility] [place] [facility] [address] [id number] [place] [address] Feb, [facility] [address] [id number] [place] [address] January, [facility] [address] [id number] [place] [address] January, [facility] [address] [id number] [place] [address] January, [facility] [address] [id number] [place] [address] January, [facility] [address] [id number] [place] [address] January, [facility] [address] [id number] [place] [address] January, [facility] [address] [id number] [place] [address] Dec, [facility] [address] [id number] [place] [address] Dec, [facility] [address] [id number] [place] [address] Dec, [facility] [address] [id number] [place] [address] Dec, [facility] [place] [facility] [address] [id number] [place] [address] Dec, [facility] [place] [facility] [address] [id number] [place] [address] Dec, [facility] [place] [facility] [address] [id number] [place] [address] Dec, [facility] [place] [facility] [address] [id number] [place] [address] Dec, [facility] [place] [facility] [address] [id number] [place] [address] Nov, [facility] [place] [facility] [address] [id number] [place] [address] Nov, [facility] [place] [facility] [address] [id number] [place] [address] Nov, [facility] [place] [facility] [address] [id number] [place] [address] Nov, [facility] [place] [facility] [address] [id number] [place] [address] Nov, [facility] [place] [facility] [address] [id number] [place] [address] Nov, [facility] [place] [facility] [address] [id number] [place] [address] Nov, [facility] [place] [facility] [address] [id number] [place] [address] Oct, [facility] [place] [facility] [address] [id number] [place] [address] Oct, [facility] [place] [facility] [address] [id number] [place] [address] Oct, [facility] [place] [facility] [address] [id number] [place] [address] Oct, [facility] [place] [facility] [address] [id number] [place] [address] Sep, [facility] [place] [facility] [address] [id number] [place] [address] Sep, [facility] [place] [facility] [address] [id number] [place] [address] Sep, [facility] [place] [facility] [address] [id number] [place] [address] Sep, [facility] [place] [facility] [address] [id number] [place] [address] Aug, [facility] [place] [facility] [address] [id number] [place] [address] Aug, [facility] [address] [id number] [place] [address] Jul, [facility] [place] [facility] [address] [id number] [place] [address] Jul, [facility] [place] [facility] [address] [id number] [place] [address] Jun, [facility] [place] [facility] [address] [id number] [place] [address] Jun, [facility] [place] [facility] [address] [id number] [place] [address] Jun, [facility] [place] [facility] [address] [id number] [place] [address] May, [facility] [place] [facility] [address] [id number] [place] [address] Apr, [facility] [place] [facility] [address] [id number] [place] [address] Apr, [facility] [place] [facility] [address] [id number] [place] [address] Mar, [facility] [place] [facility] [address] [id number] [place] [address] Feb, [facility] [place] [facility] [address] [id number] [place] [address] Feb, [facility] [place] [facility] [address] [id number] [place] [address] January, [facility] [place] [facility] [address] [id number] [place] [address] January, [facility] [place] [facility] [address] [id number] [place] [address] Dec, [facility] [place] [facility] [address] [id number] [place] [address] Dec, [facility] [place] [facility] [address] [id number] [place] [address] Dec, [facility] [address] [id number] [place] [address] Dec, [facility] [address] [id number] [place] [address] Nov, [facility] [place] [facility] [address] [id number] [place] [address] Nov, [facility] [address] [id number] [place] [address] Oct, [facility] [place] [facility] [address] [id number] [place] [address] Oct, [facility] [address] [id number] [place] [address] Oct, [facility] [address] [id number] [place] [address] Sep, [facility] [address] [id number] [place] [address] Sep, [facility] [address] [id number] [place] [address] Sep, [facility] [address] [id number] [place] [address] Sep, [facility] [address] [id number] [address] Sep, [facility] [place] [facility] [address] [id number] [place] [address] Aug, [facility] [place] [facility] [address] [id number] [place] [address] Aug, [facility] [place] [facility] [address] [id number] [place] [address] Aug, [facility] [place] [facility] [address] [id number] [address] 14 Aug, 2012 [facility] [place] [facility] [address] [id number] [place] [address] Jul, [facility] [place] [facility] [address] [facility] [id number] [place] [address] Jul, [facility] [place] [facility] [id number] [place] [address] Jul, [facility] [place] [facility] [address] [facility] [id number] [place] [address] Jul, [facility] [place] [facility] [id number] [place] [address], [place] [address] Jun, [facility] [place] [facility] [address] [facility] [id number] [place] [address] Jun, [facility] [place] [facility] [id number] [place] [address] Jun, [facility] [place] [facility] [address] [facility] [id number] [place] [address] Jun, [facility] [place] [facility] [address] [id number] [address] Jun, [facility] [place] [facility] [address] [id number] [address] 24 May, 2012 [facility] [place] [facility] [id number] [address] 13 Sep2011 [facility] [place] [facility] [address] [facility] [id number] [place] [address] 12 Sep2011 [facility] [place] [facility] [address] [facility] [id number] [address] 11 Sep2011 [facility] [place] [facility] [address] [facility] [id number] [address] 10 May, 2012 [facility] [place] [facility] [address] [id number] [address] 06 Sep2011 [facility] [place] [facility] [address] [id number] [place] [address] May, [facility] [place] [facility] [address] [id number] [place] [address] Apr, [facility] [place] [facility] [address] [id number] [place] [address] Apr, [facility] [place] [facility] [address] [id number] [place] [address] Apr, [facility] [place] [facility] [address] [id number] [place] [address] Apr, [facility] [place] [facility] [address] [id number] [place] [address] Apr, [facility] [place] [facility] [address] [id number] [place] [address] Apr, [facility] [place] [facility] [address] [id number] [place] [address] Apr, [facility] [place] [facility] [address] [id number] [place] [address] Apr, [facility] [place] [facility] [address] [id number] [place] [address] Mar, [facility] [place] [facility] [address] [id number] [place] [address] Mar, [facility] [place] [facility] [address] [id number] [place] [address] Mar, [facility] [place] [facility] [address] [id number] [place] [address] Feb, [facility] [place] [facility] [address] [id number] [place] [address] January, [facility] [place] [facility] [address] [id number] [place] [address] January, [facility] [place] [facility] [address] [id number] [place] [address] January, [facility] [address] [facility] [id number] [address] Dec, [facility] [address] [facility] [id number] [place] [address] Dec, [facility] [address] [facility] [id number] [address] Dec, [facility] [id number] [address] Dec, [facility] [address] [facility] [id number] [place] [address] Dec, [facility] [address] [facility] [id number] [place] [address] Dec, IMMUNIZATIONS No Known Immunizations SOCIAL HISTORY Never Assessed REASON FOR VISIT EMR-[facility] [place] PLAN OF CARE VITAL SIGNS MEDICATIONS Unknown [...] 04/02/2012 Surgical History appendectomy age 10 at [facility] Surgical History cholecystectomy-[facility] 2007 Surgical History coronary artery bypass graft LAD 02/2012 Surgical History heart cath x2 after bypass, pt has 5 stents Hospitalization History Chest pain, dizziness, renal insuff, heat cath showed CAD ([facility]) 01/03/2012 Hospitalization History CABG ([facility]) Dr. Banks 02/2012
--- OUTSIDE RECORDS SUMMARY | 2019-05-03 09:27 | XMS REPORT ---
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 Name Role Phone Migration, Doctor Unavailable Unavailable PROBLEMS Type Condition ICD9-CM Code PCU98-HP Code Onset Dates Condition Status SNOMED Code Problem Centrilobular emphysema J43.2 Active 70249462 Problem Chest wall pain R07.89 Active 716550798 Problem Chronic kidney disease N18.9 Active 445504529 Problem Coronary artery disease involving [place] coronary artery of [place] heart without angina pectoris I25.10 Active 5615326530741 Problem Chronic fatigue R53.82 Active 98015944 Problem Vertigo R42 Active 716094631 Problem Anemia, unspecified type D64.9 Active 071462935 Problem Iron deficiency anemia, unspecified iron deficiency anemia type D50.9 Active 38591990 Problem Mixed hyperlipidemia E78.2 Active 096458151 ALLERGIES No Information ENCOUNTERS Encounter Location Date Diagnosis [place] [id number] [place] [address] January, [place] [id number] [place] [address] Dec, Chest wall pain R07.89 [facility] [id number] [place] [address] Nov, Chest wall pain R07.89 [facility] [id number] [place] [address] Nov, [facility] [id number] [place] [address] Oct, Chest wall pain R07.89 [facility] [id number] [place] [address] Oct, Encounter for immunization Z23 [facility] [id number] [place] [address] Sep, [facility] [address] [address] Sep, Chest wall pain R07.89 [facility] [address] [address] Aug, Chest wall pain R07.89 [facility] [id number] [place] [address] Jul, Chest wall pain R07.89 [facility] [id number] [place] [address] Jun, Chest wall pain R07.89 [facility] [id number] [place] [address] Jun, [facility] [id number] [place] [address] Jun, Encounter for immunization Z23 [facility] [id number] [place] [address] Jun, Chest wall pain R07.89 [facility] [id number] [place] [address] Jun, Encounter for immunization Z23 [facility] [id number] [place] [address] May, [facility] [id number] [place] [address] 11 May, 2018 Medicare annual wellness visit, initial Z00.00 ; Chest wall pain R07.89 ; Mixed hyperlipidemia E78.2 ; Coronary artery disease involving [place] coronary artery of [place] heart without angina pectoris I25.10 ; History of smoking Z87.891 and Chronic kidney disease N18.9 [facility] [id number] [place] [address] May, Chest wall pain R07.89 [facility] [id number] [place] [address] Apr, Chest wall pain R07.89 [facility] [address] [address] Apr, [facility] [id number] [place] [address] Apr, Chest wall pain R07.89 ; Chronic kidney disease N18.9 ; Iron deficiency anemia, unspecified iron deficiency anemia type D50.9 ; Chronic fatigue R53.82 ; Coronary artery disease involving [place] coronary artery of [place] heart without angina pectoris I25.10 and Anemia, unspecified type D64.9 [facility] [id number] [place] [address] Apr, Chest wall pain R07.89 [facility] [id number] [place] [address] Mar, Chest wall pain R07.89 [facility] [id number] [place] [address] Feb, Chest wall pain R07.89 [facility] [place] [id number] [place] [address] January, Chest wall pain R07.89 [place] [id number] [place] [address] Dec, Chest wall pain R07.89 ; Coronary artery disease involving [place] coronary artery of [place] heart without angina pectoris I25.10 and Vertigo R42 [place] [address], [place] [address] Dec, Chest wall pain R07.89 [facility] [id number] [place] [address] Nov, Chest wall pain R07.89 [facility] [place] [id number] [place] [address] Oct, Chest wall pain R07.89 [facility] [place] [id number] [place] [address] Sep, Chest wall pain R07.89 and Pleurodynia R07.81 [facility] [id number] [place] [address] Sep, [facility] [id number] [place] [address] Sep, Chest wall pain R07.89 and Sore throat J02.9 [facility] [id number] [place] [address] Sep, [facility] [id number] [place] [address] Sep, Sore throat J02.9 and Acute nasopharyngitis J00 [facility] [id number] [place] [address] Sep, [facility] [id number] [place] [address] Aug, Chest wall pain R07.89 [facility] [id number] [place] [address] Jul, Chest wall pain R07.89 [facility] [id number] [place] [address] Jul, [facility] [id number] [place] [address] Jul, Chest wall pain R07.89 [facility] [id number] [place] [address] 06 Jul, 2017 Chest wall pain R07.89 ; Chronic fatigue R53.82 ; Anemia, unspecified type D64.9 ; Vertigo R42 and Coronary artery disease involving [place] coronary artery of [place] heart without angina pectoris I25.10 [facility] [id number] [place] [address] Jun, Chest wall pain R07.89 [facility] [id number] [place] [address] Apr, Chest wall pain R07.89 [facility] [id number] [place] [address] Apr, [facility] [id number] [place] [address] Apr, Dental abscess K04.7 [facility] [id number] [place] [address] Apr, [facility] [id number] [place] [address] Apr, Chest wall pain R07.89 [facility] [id number] [place] [address] Mar, Chest wall pain R07.89 [facility] [id number] [place] [address] Feb, Chest wall pain R07.89 ; Lateral epicondylitis of right elbow M77.11 and Mixed hyperlipidemia E78.2 [facility] [id number] [place] [address] Feb, Chest wall pain R07.89 [facility] [id number] [place] [address] January, [facility] [id number] [place] [address] January, Chest wall pain R07.89 [facility] [id number] [place] [address] Dec, Chest wall pain R07.89 [facility] [id number] [place] [address] Nov, [facility] [id number] [place] [address] Nov, Hypokalemia E87.6 [facility] [id number] [place] [address] Nov, Hypokalemia E87.6 and Iron deficiency anemia, unspecified iron deficiency anemia type D50.9 [facility] [id number] [place] [address] Nov, [facility] [id number] [place] [address] Nov, Nausea R11.0 and Hypovolemia E86.1 [facility] [id number] [place] [address] Nov, [facility] [address] [address] Nov, [facility] [id number] [place] [address] Nov, Chest wall pain R07.89 [facility] [address] [address] Nov, Bronchitis J40 [facility] [id number] [place] [address] Oct, Chest wall pain R07.89 [facility] [id number] [place] [address] Sep, Chest wall pain R07.89 [facility] [id number] [place] [address] Aug, Chest wall pain R07.89 [facility] [id number] [place] [address] Aug, Chest pain on breathing R07.1 [facility] [id number] [place] [address] Jul, [facility] [id number] [place] [address] 07 Jun, 2016 [facility] [id number] [place] [address] May, Chest wall pain R07.89 ; Iron deficiency anemia, unspecified iron deficiency anemia type D50.9 ; Chronic kidney disease N18.9 and Encounter for immunization Z23 [facility] [id number] [place] [address] May, [facility] [id number] [place] [address] Apr, [facility] [address] [address] Mar, [place] [address] [address] Mar, [place] [address] [address] Feb, [place] [address] [address] Feb, Iron deficiency anemia, unspecified iron deficiency anemia type D50.9 [facility] [id number] [place] [address] Feb, Dehydration E86.0 ; Diarrhea, unspecified type R19.7 ; Dizziness R42 and Other specified hypotension I95.89 [place] [id number] [place] [address] Feb, Anemia, unspecified type D64.9 [place] [id number] [place] [address] January, Anemia, unspecified type D64.9 [place] [id number] [place] [address] January, Paresthesia R20.2 [facility] [id number] [place] [address] January, Chest wall pain R07.89 [facility] [id number] [place] [address] Dec, Insomnia G47.00 [facility] [id number] [place] [address] Dec, Chest pain on breathing R07.1 [facility] [id number] [place] [address] Nov, Chest pain on breathing R07.1 [facility] [address] [address] Oct, [facility] [address] [address] Oct, [facility] [address] [address] Oct, Low back pain M54.5 and Chest wall pain R07.89 [facility] [address] [address] Oct, Pleurodynia R07.81 [facility] [address] [address] Sep, Pleurodynia R07.81 and Other nerve root and plexus disorders G54.8 [facility] [id number] [place] [address] Aug, Chronic kidney disease N18.9 ; Encounter for immunization Z23 ; Chest wall pain R07.89 ; Urinary frequency R35.0 and Vertigo R42 [facility] [id number] [place] [address] Aug, [facility] [id number] [place] [address] Jul, [facility] [address] [address] Jul, [facility] [id number] [place] [address] Jun, [facility] [address] [place] [address] Jun, [facility] [address] [id number], [place] [address] May, [facility] [address] [facility] [id number], [place] [address] May, [facility] [address] [facility] [id number], [place] [address] May, [facility] [address] [facility] [id number], [place] [address] May, Coronary atherosclerosis of unspecified type of vessel, [place] or graft 414.00 [facility] [address] [id number], [place] [address] Apr, [facility] [address] [facility] [id number], [place] [address] Apr, [facility] [address] [facility] [id number], [place] [address] Apr, [facility] [id number] [address] Apr, [facility] [id number] [address] Apr, [facility] [id number] [address] Apr, Coronary atherosclerosis of unspecified type of vessel, [place] or graft 414.00 and Left-sided chest wall pain 786.52 [facility] [address] [id number], [place] [address] Mar, [facility] [address] [facility] [id number], [place] [address] Mar, [facility] [address] [facility] [id number], [place] [address] Feb, [facility] [id number] [address] Feb, [facility] [address] [facility] [id number] [place] [address] January, [facility] [address] [facility] [id number] [place] [address] January, [facility] [address] [place] [address] January, [facility] [address] [facility] [id number] [place] [address], [place] [address] January, Neuropathic pain of chest 353.8 [facility] [address] [id number] [place] [address] Dec, [facility] [address] [facility] [id number] [place] [address] Dec, [facility] [id number] [place] [address] Nov, [facility] [address] [facility] [id number] [place] [address] Nov, [facility] [address] [place] [address] Nov, [facility] [address], [place] [address] Nov, [facility] [id number], [place] [address] Nov, [facility] [address] [facility] [id number], [place] [address] Nov, [facility] [address] [facility] [id number], [place] [address] Oct, [facility] [address] [facility] [id number], [place] [address] Oct, [facility] [id number] [address] Oct, [facility] [place] [facility] [address] [id number] [place] [address] Oct, [facility] [place] [facility] [address] [id number] [place] [address] Oct, [facility] [place] [facility] [address] [id number] [place] [address] Oct, [facility] [place] [facility] [address] [id number] [place] [address] Sep, [facility] [place] [facility] [address] [id number] [place] [address] Sep, [facility] [place] [facility] [address] [id number] [place] [address] Sep, [facility] [place] [facility] [address] [id number] [place] [address] Sep, [facility] [place] [facility] [address] [id number] [place] [address] Aug, [facility] [place] [facility] [address] [id number] [place] [address] Aug, [facility] [place] [facility] [address] [id number] [place] [address] Aug, [facility] [place] [facility] [address] [id number] [place] [address] Aug, [facility] [place] [facility] [address] [id number] [place] [address] Aug, [facility] [place] [facility] [address] [id number] [place] [address] Aug, [facility] [place] [facility] [address] [id number] [place] [address] Aug, [facility] [place] [facility] [address] [id number] [place] [address] Aug, [facility] [place] [facility] [address] [id number] [place] [address] Aug, [facility] [place] [facility] [address] [id number] [place] [address] Aug, [facility] [place] [facility] [address] [id number] [place] [address] Jul, [facility] [place] [facility] [address] [id number] [place] [address] Jul, [facility] [place] [facility] [address] [id number] [place] [address] Jul, [facility] [place] [facility] [address] [id number] [place] [address] Jul, [facility] [place] [facility] [address] [id number] [place] [address] Jun, [facility] [place] [facility] [address] [id number] [place] [address] Jun, [facility] [place] [facility] [address] [id number] [place] [address] Jun, [facility] [place] [facility] [address] [id number] [place] [address] Jun, [facility] [place] [facility] [address] [id number] [place] [address] May, [facility] [place] [facility] [address] [id number] [place] [address] May, [facility] [place] [facility] [address] [id number] [place] [address] May, [facility] [place] [facility] [address] [id number] [place] [address] May, [facility] [place] [facility] [address] [id number] [place] [address] Apr, [facility] [place] [facility] [address] [id number] [place] [address] Apr, [facility] [place] [facility] [address] [id number] [place] [address] Feb, [facility] [address] [id number] [place] [address] January, [facility] [address] [id number] [place] [address] January, [facility] [address] [id number] [place] [address] January, [facility] [address] [id number] [place] [address] January, [facility] [address] [id number] [place] [address] January, [facility] [address] [id number] [place] [address] January, [facility] [address] [id number] [place] [address] Dec, [facility] [address] [id number] [place] [address] Dec, [facility] [address] [id number] [place] [address] Dec, [facility] [address] [id number] [place] [address] Dec, [facility] [place] [facility] [address] [id number] [place] [address] Dec, [facility] [place] [facility] [address] [id number] [place] [address] Dec, [facility] [place] [facility] [address] [id number] [place] [address] Dec, [facility] [place] [facility] [address] [id number] [place] [address] Dec, [facility] [place] [facility] [address] [id number] [place] [address] Nov, [facility] [place] [facility] [address] [id number] [place] [address] Nov, [facility] [place] [facility] [address] [id number] [place] [address] Nov, [facility] [place] [facility] [address] [id number] [place] [address] Nov, [facility] [place] [facility] [address] [id number] [place] [address] Nov, [facility] [place] [facility] [address] [id number] [place] [address] Nov, [facility] [place] [facility] [address] [id number] [place] [address] Nov, [facility] [place] [facility] [address] [id number] [place] [address] Oct, [facility] [place] [facility] [address] [id number] [place] [address] Oct, [facility] [place] [facility] [address] [id number] [place] [address] Oct, [facility] [place] [facility] [address] [id number] [place] [address] Oct, [facility] [place] [facility] [address] [id number] [place] [address] Sep, [facility] [place] [facility] [address] [id number] [place] [address] Sep, [facility] [place] [facility] [address] [id number] [place] [address] Sep, [facility] [place] [facility] [address] [id number] [place] [address] Sep, [facility] [place] [facility] [address] [id number] [place] [address] Aug, [facility] [place] [facility] [address] [id number] [place] [address] Aug, [facility] [address] [id number] [place] [address] Jul, [facility] [place] [facility] [address] [id number] [place] [address] Jul, [facility] [place] [facility] [address] [id number] [place] [address] Jun, [facility] [place] [facility] [address] [id number] [place] [address] Jun, [facility] [place] [facility] [address] [id number] [place] [address] Jun, [facility] [place] [facility] [address] [id number] [place] [address] May, [facility] [place] [facility] [address] [id number] [place] [address] Apr, [facility] [place] [facility] [address] [id number] [place] [address] Apr, [facility] [place] [facility] [address] [id number] [place] [address] Mar, [facility] [place] [facility] [address] [id number] [place] [address] Feb, [facility] [place] [facility] [address] [id number] [place] [address] Feb, [facility] [place] [facility] [address] [id number] [place] [address] January, [facility] [place] [facility] [address] [id number] [place] [address] January, [facility] [place] [facility] [address] [id number] [place] [address] Dec, [facility] [place] [facility] [address] [id number] [place] [address] Dec, [facility] [place] [facility] [address] [id number] [place] [place] [address] Dec, [facility] [address] [id number] [place] [address] Dec, [facility] [address] [id number] [place] [address] Nov, [facility] [place] [facility] [address] [id number] [place] [address] Nov, [facility] [address] [id number] [place] [address] Oct, [facility] [place] [facility] [address] [id number] [place] [address] Oct, [facility] [address] [id number] [place] [address] Oct, [facility] [address] [id number] [place] [address] Sep, [facility] [address] [id number] [place] [address] Sep, [facility] [address] [id number] [place] [address] Sep, [facility] [address] [id number] [place] [address] Sep, [facility] [address] [id number], [place] [address] Sep, [facility] [place] [facility] [address] [id number] [place] [address] Aug, [facility] [place] [facility] [address] [id number] [place] [address] Aug, [facility] [place] [facility] [address] [id number] [place] [address] Aug, [facility] [place] [facility] [address] [id number], [place] [address] 14 Aug, 2012 [facility] [place] [facility] [address] [id number] [place] [address] Jul, [facility] [place] [facility] [address] [facility] [id number], [place] [address] Jul, [facility] [place] [facility] [id number] [place] [address] Jul, [facility] [place] [facility] [address] [facility] [id number] [place] [address] Jul, [facility] [place] [facility] [id number] [place] [address], [place] [address] Jun, [facility] [place] [facility] [address] [facility] [id number] [place] [address] Jun, [facility] [place] [facility] [id number] [place] [address] Jun, [facility] [place] [facility] [address] [facility] [id number] [place] [address] Jun, [facility] [place] [facility] [address] [id number], [place] [address] Jun, [facility] [place] [facility] [address] [id number], [place] [address] 24 May, 2012 [facility] [place] [facility] [id number], [place] [address] 13 Sep2011 [facility] [place] [facility] [address] [facility] [id number], [place] [address] 12 Sep2011 [facility] [place] [facility] [address] [facility] [id number], [place] [address] 11 Sep2011 [facility] [place] [facility] [address] [facility] [id number], [place] [address] 10 May, 2012 [facility] [place] [facility] [address] [id number], [place] [address] 06 Sep2011 [facility] [place] [facility] [address] [id number] [place] [address] May, [facility] [place] [facility] [address] [id number] [place] [address] Apr, [facility] [place] [facility] [address] [id number] [place] [address] Apr, [facility] [place] [facility] [address] [id number] [place] [address] Apr, [facility] [place] [facility] [address] [id number] [place] [address] Apr, [facility] [place] [facility] [address] [id number] [place] [address] Apr, [facility] [place] [facility] [address] [id number] [place] [address] Apr, [facility] [place] [facility] [address] [id number] [place] [address] Apr, [facility] [place] [facility] [address] [id number] [place] [address] Apr, [facility] [place] [facility] [address] [id number] [place] [address] Mar, [facility] [place] [facility] [address] [id number] [place] [address] Mar, [facility] [place] [facility] [address] [id number] [place] [address] Mar, [facility] [place] [facility] [address] [id number] [place] [address] Feb, [facility] [place] [facility] [address] [id number] [place] [address] January, [facility] [place] [facility] [address] [id number] [place] [address] January, [facility] [place] [facility] [address] [id number] [place] [address] January, [facility] [address] [facility] [id number], [place] [address] Dec, [facility] [address] [facility] [id number], [place] [address] Dec, [facility] [address] [facility] [id number], [place] [address] Dec, [facility] [id number], [place] [address] Dec, [facility] [address] [facility] [id number], [place] [address] Dec, [facility] [address] [facility] [id number], [place] [address] Dec, IMMUNIZATIONS No Known Immunizations SOCIAL HISTORY Never Assessed REASON FOR VISIT EMR-[facility] [place] PLAN OF CARE VITAL SIGNS MEDICATIONS Unknown [...] 04/02/2012 Surgical History appendectomy age 10 at [facility] Surgical History cholecystectomy-[facility] 2007 Surgical History coronary artery bypass graft LAD 02/2012 Surgical History heart cath x2 after bypass, pt has 5 stents Hospitalization History Chest pain, dizziness, renal insuff, heat cath showed CAD ([facility]) 01/03/2012 Hospitalization History CABG ([facility]) Dr. Banks 02/2012
--- OUTSIDE RECORDS SUMMARY | 2019-05-03 09:28 | XMS REPORT ---
Author Author Migration, Doctor Organization [facility] Address Unknown Phone Unavailable Care Team Providers Care Glass Maker Name Role Phone Migration, Doctor Unavailable Unavailable PROBLEMS Type Condition ICD9-CM Code NEH84-RJ Code Onset Dates Condition Status SNOMED Code Problem Centrilobular emphysema J43.2 Active 85995415 Problem Chest wall pain R07.89 Active 566113661 Problem Chronic kidney disease N18.9 Active 257595712 Problem Coronary artery disease involving [place] coronary artery of [place] heart without angina pectoris I25.10 Active 3737833196109 Problem Chronic fatigue R53.82 Active 15091516 Problem Vertigo R42 Active 214094159 Problem Anemia, unspecified type D64.9 Active 626033819 Problem Iron deficiency anemia, unspecified iron deficiency anemia type D50.9 Active 71634554 Problem Mixed hyperlipidemia E78.2 Active 317311514 ALLERGIES No Information ENCOUNTERS Encounter Location Date Diagnosis [place] [id number] [place] [id number] January, [place] [id number] [place] [address] Dec, Chest wall pain R07.89 [facility] [id number] [place] [address] Nov, Chest wall pain R07.89 [facility] [id number] [place] [address] Nov, [facility] [id number] [place] [address] Oct, Chest wall pain R07.89 [facility] [id number] [place] [address] Oct, Encounter for immunization Z23 [facility] [id number] [place] [address] Sep, [facility] [address], [place] [address] Sep, Chest wall pain R07.89 [facility] [address], [place] [address] Aug, Chest wall pain R07.89 [facility] [id number] [place] [address] Jul, Chest wall pain R07.89 [facility] [id number] [place] [address] Jun, Chest wall pain R07.89 [facility] [id number] [place] [address] Jun, [facility] [id number] [place] [address] Jun, Encounter for immunization Z23 [facility] [id number] [place] [address] Jun, Chest wall pain R07.89 [facility] [id number] [place] [address] Jun, Encounter for immunization Z23 [facility] [id number] [place] [address] May, [facility] [id number] [place] [address] 11 May, 2018 Medicare annual wellness visit, initial Z00.00 ; Chest wall pain R07.89 ; Mixed hyperlipidemia E78.2 ; Coronary artery disease involving [place] coronary artery of [place] heart without angina pectoris I25.10 ; History of smoking Z87.891 and Chronic kidney disease N18.9 [facility] [address] [place] [address] May, Chest wall pain R07.89 [facility] [address] [place] [address] Apr, Chest wall pain R07.89 [facility] [place] [address], [place] [address] Apr, [facility] [id number] [place] [address] Apr, Chest wall pain R07.89 ; Chronic kidney disease N18.9 ; Iron deficiency anemia, unspecified iron deficiency anemia type D50.9 ; Chronic fatigue R53.82 ; Coronary artery disease involving [place] coronary artery of [place] heart without angina pectoris I25.10 and Anemia, unspecified type D64.9 [place] [id number] [place] [address] Apr, Chest wall pain R07.89 [place] [id number] [place] [address] Mar, Chest wall pain R07.89 [place] [id number] [place] [address] Feb, Chest wall pain R07.89 [place] [id number] [place] [address] January, Chest wall pain R07.89 [place] [id number] [place] [address] Dec, Chest wall pain R07.89 ; Coronary artery disease involving [place] coronary artery of [place] heart without angina pectoris I25.10 and Vertigo R42 [place] [address], [place] [address] Dec, Chest wall pain R07.89 [place] [id number] [place] [address] Nov, Chest wall pain R07.89 [place] [address] [place] [address] Oct, Chest wall pain R07.89 [place] [id number] [place] [address] Sep, Chest wall pain R07.89 and Pleurodynia R07.81 [facility] [id number] [place] [address] Sep, [facility] [id number] [place] [address] Sep, Chest wall pain R07.89 and Sore throat J02.9 [facility] [place] [id number] [place] [address] Sep, [facility] [id number] [place] [address] Sep, Sore throat J02.9 and Acute nasopharyngitis J00 [facility] [id number] [place] [address] Sep, [facility] [id number] [place] [address] Aug, Chest wall pain R07.89 [facility] [id number] [place] [address] Jul, Chest wall pain R07.89 [facility] [id number] [place] [address] Jul, [facility] [id number] [place] [address] Jul, Chest wall pain R07.89 [facility] [place] [id number] [place] [address] 06 Jul, 2017 Chest wall pain R07.89 ; Chronic fatigue R53.82 ; Anemia, unspecified type D64.9 ; Vertigo R42 and Coronary artery disease involving [place] coronary artery of [place] heart without angina pectoris I25.10 [facility] [address] [place] [address] Jun, Chest wall pain R07.89 [facility] [place] [address] [place] [address] Apr, Chest wall pain R07.89 [facility] [place] [id number] [place] [address] Apr, [facility] [place] [id number] [place] [address] Apr, Dental abscess K04.7 [facility] [place] [id number] [place] [address] Apr, [facility] [place] [id number] [place] [address] Apr, Chest wall pain R07.89 [facility] [place] [id number] [place] [address] Mar, Chest wall pain R07.89 [facility] [place] [id number] [place] [address] Feb, Chest wall pain R07.89 ; Lateral epicondylitis of right elbow M77.11 and Mixed hyperlipidemia E78.2 [facility] [place] [id number] [place] [address] Feb, Chest wall pain R07.89 [facility] [place] [id number] [place] [address] January, [facility] [place] [id number] [place] [address] January, Chest wall pain R07.89 [facility] [place] [address] [place] [address] Dec, Chest wall pain R07.89 [facility] [place] [id number] [place] [address] Nov, [facility] [place] [id number] [place] [address] Nov, Hypokalemia E87.6 [facility] [place] [id number] [place] [address] Nov, Hypokalemia E87.6 and Iron deficiency anemia, unspecified iron deficiency anemia type D50.9 [facility] [place] [id number] [place] [address] Nov, [facility] [place] [id number] [place] [address] Nov, Nausea R11.0 and Hypovolemia E86.1 [facility] [place] [id number] [place] [address] Nov, [facility] [place] [address] [address] Nov, [facility] [place] [id number] [place] [address] Nov, Chest wall pain R07.89 [facility] [place] [address] [address] Nov, Bronchitis J40 [facility] [place] [id number] [place] [address] Oct, Chest wall pain R07.89 [facility] [place] [id number] [place] [address] Sep, Chest wall pain R07.89 [facility] [place] [id number] [place] [address] Aug, Chest wall pain R07.89 [facility] [place] [id number] [place] [address] Aug, Chest pain on breathing R07.1 [facility] [place] [id number] [place] [address] Jul, [facility] [place] [id number] [place] [address] 07 Jun, 2016 [facility] [place] [id number] [place] [address] May, Chest wall pain R07.89 ; Iron deficiency anemia, unspecified iron deficiency anemia type D50.9 ; Chronic kidney disease N18.9 and Encounter for immunization Z23 [facility] [place] [id number] [place] [address] May, [facility] [place] [id number] [place] [address] Apr, [facility] [place] [address] [address] Mar, [place] [address] [address] Mar, [place] [address] [address] Feb, [place] [address] [address] Feb, Iron deficiency anemia, unspecified iron deficiency anemia type D50.9 [facility] [id number] [place] [address] Feb, Dehydration E86.0 ; Diarrhea, unspecified type R19.7 ; Dizziness R42 and Other specified hypotension I95.89 [place] [id number] [place] [address] Feb, Anemia, unspecified type D64.9 [place] [id number] [place] [address] January, Anemia, unspecified type D64.9 [place] [id number] [place] [address] January, Paresthesia R20.2 [facility] [place] [id number] [place] [address] January, Chest wall pain R07.89 [facility] [place] [id number] [place] [address] Dec, Insomnia G47.00 [facility] [place] [id number] [place] [address] Dec, Chest pain on breathing R07.1 [facility] [place] [id number] [place] [address] Nov, Chest pain on breathing R07.1 [facility] [place] [address] [address] Oct, [facility] [place] [address] [address] Oct, [facility] [place] [address] [address] Oct, Low back pain M54.5 and Chest wall pain R07.89 [facility] [place] [address] [address] Oct, Pleurodynia R07.81 [facility] [place] [address] [address] Sep, Pleurodynia R07.81 and Other nerve root and plexus disorders G54.8 [facility] [place] [id number] [place] [address] Aug, Chronic kidney disease N18.9 ; Encounter for immunization Z23 ; Chest wall pain R07.89 ; Urinary frequency R35.0 and Vertigo R42 [facility] [place] [id number] [place] [address] Aug, [facility] [place] [id number] [place] [address] Jul, [facility] [place] [address] [address] Jul, [facility] [place] [id number] [place] [address] Jun, [facility] [place] [address] [place] [address] Jun, [facility] [place] [address] [id number], [place] [address] May, [facility] [address] [facility] [id number], [place] [address] May, [facility] [place] [address] [facility] [id number], [place] [address] May, [facility] [place] [address] [facility] [id number], [place] [address] May, Coronary atherosclerosis of unspecified type of vessel, [place] or graft 414.00 [facility] [place] [address] [id number], [place] [address] Apr, [facility] [place] [address] [facility] [id number], [place] [address] Apr, [facility] [place] [address] [facility] [id number], [place] [address] Apr, [facility] [place] [id number], [place] [address] Apr, [facility] [place] [id number], [place] [address] Apr, [facility] [place] [id number], [place] [address] Apr, Coronary atherosclerosis of unspecified type of vessel, [place] or graft 414.00 and Left-sided chest wall pain 786.52 [facility] [place] [address] [id number], [place] [address] Mar, [facility] [place] [address] [facility] [id number], [place] [address] Mar, [facility] [place] [address] [facility] [id number], [place] [address] Feb, [facility] [place] [id number], [place] [address] Feb, [facility] [address] [facility] [id number] [place] [address] January, [facility] [address] [facility] [id number] [place] [address] January, [facility] [address] [place] [address] January, [facility] [address] [facility] [id number] [place] [address], [place] [address] January, Neuropathic pain of chest 353.8 [facility] [address] [id number] [place] [address] Dec, [facility] [address] [facility] [id number] [place] [address] Dec, [facility] [id number] [place] [address] Nov, [facility] [address] [facility] [id number] [place] [address] Nov, [facility] [id number] [place] [address] Nov, [facility] [address], [place] [address] Nov, [facility] [id number], [place] [address] Nov, [facility] [address] [facility] [id number], [place] [address] Nov, [facility] [address] [facility] [id number], [place] [address] Oct, [facility] [address] [facility] [id number], [place] [address] Oct, [facility] [id number], [place] [address] Oct, [facility] [place] [facility] [address] [id number] [place] [address] Oct, [facility] [place] [facility] [address] [id number] [place] [address] Oct, [facility] [place] [facility] [address] [id number] [place] [address] Oct, [facility] [place] [facility] [address] [id number] [place] [address] Sep, [facility] [place] [facility] [address] [id number] [place] [address] Sep, [facility] [place] [facility] [address] [id number] [place] [address] Sep, [facility] [place] [facility] [address] [id number] [place] [address] Sep, [facility] [place] [facility] [address] [id number] [place] [address] Aug, [facility] [place] [facility] [address] [id number] [place] [address] Aug, [facility] [place] [facility] [address] [id number] [place] [address] Aug, [facility] [place] [facility] [address] [id number] [place] [address] Aug, [facility] [place] [facility] [address] [id number] [place] [address] Aug, [facility] [place] [facility] [address] [id number] [place] [address] Aug, [facility] [place] [facility] [address] [id number] [place] [address] Aug, [facility] [place] [facility] [address] [id number] [place] [address] Aug, [facility] [place] [facility] [address] [id number] [place] [address] Aug, [facility] [place] [facility] [address] [id number] [place] [address] Aug, [facility] [place] [facility] [address] [id number] [place] [address] Jul, [facility] [place] [facility] [address] [id number] [place] [address] Jul, [facility] [place] [facility] [address] [id number] [place] [address] Jul, [facility] [place] [facility] [address] [id number] [place] [address] Jul, [facility] [place] [facility] [address] [id number] [place] [address] Jun, [facility] [place] [facility] [address] [id number] [place] [address] Jun, [facility] [place] [facility] [address] [id number] [place] [address] Jun, [facility] [place] [facility] [address] [id number] [place] [address] Jun, [facility] [place] [facility] [address] [id number] [place] [address] May, [facility] [place] [facility] [address] [id number] [place] [address] May, [facility] [place] [facility] [address] [id number] [place] [address] May, [facility] [place] [facility] [address] [id number] [place] [address] May, [facility] [place] [facility] [address] [id number] [place] [address] Apr, [facility] [place] [facility] [address] [id number] [place] [address] Apr, [facility] [place] [facility] [address] [id number] [place] [address] Feb, [facility] [address] [id number] [place] [address] January, [facility] [address] [id number] [place] [address] January, [facility] [address] [id number] [place] [address] January, [facility] [address] [id number] [place] [address] January, [facility] [address] [id number] [place] [address] January, [facility] [address] [id number] [place] [address] January, [facility] [address] [id number] [place] [address] Dec, [facility] [address] [id number] [place] [address] Dec, [facility] [address] [id number] [place] [address] Dec, [facility] [address] [id number] [place] [address] Dec, [facility] [place] [facility] [address] [id number] [place] [address] Dec, [facility] [place] [facility] [address] [id number] [place] [address] Dec, [facility] [place] [facility] [address] [id number] [place] [address] Dec, [facility] [place] [facility] [address] [id number] [place] [address] Dec, [facility] [place] [facility] [address] [id number] [place] [address] Nov, [facility] [place] [facility] [address] [id number] [place] [address] Nov, [facility] [place] [facility] [address] [id number] [place] [address] Nov, [facility] [place] [facility] [address] [id number] [place] [address] Nov, [facility] [place] [facility] [address] [id number] [place] [address] Nov, [facility] [place] [facility] [address] [id number] [place] [address] Nov, [facility] [place] [facility] [address] [id number] [place] [address] Nov, [facility] [place] [facility] [address] [id number] [place] [address] Oct, [facility] [place] [facility] [address] [id number] [place] [address] Oct, [facility] [place] [facility] [address] [id number] [place] [address] Oct, [facility] [place] [facility] [address] [id number] [place] [address] Oct, [facility] [place] [facility] [address] [id number] [place] [address] Sep, [facility] [place] [facility] [address] [id number] [place] [address] Sep, [facility] [place] [facility] [address] [id number] [place] [address] Sep, [facility] [place] [facility] [address] [id number] [place] [address] Sep, [facility] [place] [facility] [address] [id number] [place] [address] Aug, [facility] [place] [facility] [address] [id number] [place] [address] Aug, [facility] [address] [id number] [place] [address] Jul, [facility] [place] [facility] [address] [id number] [place] [address] Jul, [facility] [place] [facility] [address] [id number] [place] [address] Jun, [facility] [place] [facility] [address] [id number] [place] [address] Jun, [facility] [place] [facility] [address] [id number] [place] [address] Jun, [facility] [place] [facility] [address] [id number] [place] [address] May, [facility] [place] [facility] [address] [id number] [place] [address] Apr, [facility] [place] [facility] [address] [id number] [place] [address] Apr, [facility] [place] [facility] [address] [id number] [place] [address] Mar, [facility] [place] [facility] [address] [id number] [place] [address] Feb, [facility] [place] [facility] [address] [id number] [place] [address] Feb, [facility] [place] [facility] [address] [id number] [place] [address] January, [facility] [place] [facility] [address] [id number] [place] [address] January, [facility] [place] [facility] [address] [id number] [place] [address] Dec, [facility] [place] [facility] [address] [id number] [place] [address] Dec, [facility] [place] [facility] [address] [id number] [place] [address] Dec, [facility] [address] [id number] [place] [address] Dec, [facility] [address] [id number] [place] [address] Nov, [facility] [place] [facility] [address] [id number] [place] [address] Nov, [facility] [address] [id number] [place] [address] Oct, [facility] [place] [facility] [address] [id number] [place] [address] Oct, [facility] [address] [id number] [place] [address] Oct, [facility] [address] [id number] [place] [address] Sep, [facility] [address] [id number] [place] [address] Sep, [facility] [address] [id number] [place] [address] Sep, [facility] [address] [id number] [place] [address] Sep, [facility] [address] [id number], [place] [address] Sep, [facility] [place] [facility] [address] [id number] [place] [address] Aug, [facility] [place] [facility] [address] [id number] [place] [address] Aug, [facility] [place] [facility] [address] [id number] [place] [address] Aug, [facility] [place] [facility] [address] [id number], [place] [address] 14 Aug, 2012 [facility] [place] [facility] [address] [id number] [place] [address] Jul, [facility] [place] [facility] [address] [facility] [id number], [place] [address] Jul, [facility] [place] [facility] [id number] [address] Jul, [facility] [place] [facility] [address] [facility] [id number] [place] [address] Jul, [facility] [place] [facility] [id number] [place] [address], [place] [address] Jun, [facility] [place] [facility] [address] [facility] [id number] [place] [address] Jun, [facility] [place] [facility] [id number] [place] [address] Jun, [facility] [place] [facility] [address] [facility] [id number] [place] [address] Jun, [facility] [place] [facility] [address] [id number], [place] [address] Jun, [facility] [place] [facility] [address] [id number], [place] [address] 24 May, 2012 [facility] [place] [facility] [id number], [place] [address] 13 Sep2011 [facility] [place] [facility] [address] [facility] [id number], [place] [address] 12 Sep2011 [facility] [place] [facility] [address] [facility] [id number], [place] [address] 11 Sep2011 [facility] [place] [facility] [address] [facility] [id number], [place] [address] 10 May, 2012 [facility] [place] [facility] [address] [id number], [place] [address] 06 Sep2011 [facility] [place] [facility] [address] [id number] [place] [address] May, [facility] [place] [facility] [address] [id number] [place] [address] Apr, [facility] [place] [facility] [address] [id number] [place] [address] Apr, [facility] [place] [facility] [address] [id number] [place] [address] Apr, [facility] [place] [facility] [address] [id number] [place] [address] Apr, [facility] [place] [facility] [address] [id number] [place] [address] Apr, [facility] [place] [facility] [address] [id number] [place] [address] Apr, [facility] [place] [facility] [address] [id number] [place] [address] Apr, [facility] [place] [facility] [address] [id number] [place] [address] Apr, [facility] [place] [facility] [address] [id number] [place] [address] Mar, [facility] [place] [facility] [address] [id number] [place] [address] Mar, [facility] [place] [facility] [address] [id number] [place] [address] Mar, [facility] [place] [facility] [address] [id number] [place] [address] Feb, [facility] [place] [facility] [address] [id number] [place] [address] January, [facility] [place] [facility] [address] [id number] [place] [address] January, [facility] [place] [facility] [address] [id number] [place] [address] January, [facility] [address] [facility] [id number], [place] [address] Dec, [facility] [address] [facility] [id number], [place] [address] Dec, [facility] [address] [facility] [id number], [place] [address] Dec, [facility] [id number], [place] [address] Dec, [facility] [address] [facility] [id number], [place] [address] Dec, [facility] [address] [facility] [id number], [place] [address] Dec, IMMUNIZATIONS No Known Immunizations SOCIAL HISTORY Never Assessed REASON FOR VISIT EMR-[facility] PLAN OF CARE VITAL SIGNS MEDICATIONS Unknown [...] 04/02/2012 Surgical History appendectomy age 10 at [facility] Surgical History cholecystectomy-[facility] 2007 Surgical History coronary artery bypass graft LAD 02/2012 Surgical History heart cath x2 after bypass, pt has 5 stents Hospitalization History Chest pain, dizziness, renal insuff, heat cath showed CAD ([facility]) 01/03/2012 Hospitalization History CABG ([facility]) Dr. Banks 02/2012
--- OUTSIDE RECORDS SUMMARY | 2019-05-03 09:29 | XMS REPORT ---
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 Active 9079918660577 Problem Chronic fatigue R53.82 Active 50506162 Problem Vertigo R42 Active 207294423 Problem Anemia, unspecified type D64.9 Active 114721331 Problem Iron deficiency anemia, unspecified iron deficiency anemia type D50.9 Active 42322175 Problem Mixed hyperlipidemia E78.2 Active [id number] ALLERGIES No Information ENCOUNTERS Encounter Location Date Diagnosis [place] [id number] [place] [address] January, [place] [id number] [place] [address] Dec, Chest wall pain R07.89 [facility] [id number] [place] [address] Nov, Chest wall pain R07.89 [facility] [id number] [place] [address] Nov, [facility] [id number] [place] [address] Oct, Chest wall pain R07.89 [facility] [id number] [place] [address] Oct, Encounter for immunization Z23 [facility] [id number] [place] [address] Sep, [facility] [address] [address] Sep, Chest wall pain R07.89 [facility] [address] [address] Aug, Chest wall pain R07.89 [facility] [id number] [place] [address] Jul, Chest wall pain R07.89 [facility] [id number] [place] [address] Jun, Chest wall pain R07.89 [facility] [id number] [place] [address] Jun, [facility] [id number] [place] [address] Jun, Encounter for immunization Z23 [facility] [id number] [place] [address] Jun, Chest wall pain R07.89 [facility] [id number] [place] [address] Jun, Encounter for immunization Z23 [facility] [id number] [place] [address] May, [facility] [id number] [place] [address] 11 May, 2018 Medicare annual wellness visit, initial Z00.00 ; Chest wall pain R07.89 ; Mixed hyperlipidemia E78.2 ; 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89 ; Chronic kidney disease N18.9 ; Iron deficiency anemia, unspecified iron deficiency anemia type D50.9 ; Chronic fatigue R53.82 ; Coronary artery disease involving cantwell coronary artery of cantwell heart without angina pectoris I25.10 and Anemia, unspecified type D64.9 [place] [id number] [place] [address] Apr, Chest wall pain R07.89 [place] [id number] [place] [address] Mar, Chest wall pain R07.89 [place] [id number] [place] [address] Feb, Chest wall pain R07.89 [place] [id number] [place] [address] January, Chest wall pain R07.89 [place] [id number] [place] [address] Dec, Chest wall pain R07.89 ; Coronary artery disease involving cantwell coronary artery of cantwell heart without angina pectoris I25.10 and Vertigo R42 [place] [address] [address] Dec, Chest wall pain R07.89 [place] [id number] [place] [address] Nov, Chest wall pain R07.89 [place] [id number] [place] [address] Oct, Chest wall pain R07.89 [place] [id number] [place] [address] Sep, Chest wall pain R07.89 and Pleurodynia R07.81 [facility] [id number] [place] [address] Sep, [facility] [id number] [place] [address] Sep, Chest wall pain R07.89 and Sore throat J02.9 [facility] [id number] [place] [address] Sep, [facility] [id number] [place] [address] Sep, Sore throat J02.9 and Acute nasopharyngitis J00 [facility] [id number] [place] [address] Sep, [facility] [id number] [place] [address] Aug, Chest wall pain R07.89 [facility] [id number] [place] [address] Jul, Chest wall pain R07.89 [facility] [id number] [place] [address] Jul, [facility] [id number] [place] [address] Jul, Chest wall pain R07.89 [facility] [id number] [place] [address] 06 Jul, 2017 Chest wall pain R07.89 ; Chronic fatigue R53.82 ; Anemia, unspecified type D64.9 ; Vertigo R42 and Coronary artery disease involving cantwell coronary artery of cantwell heart without angina pectoris I25.10 [facility] [id number] [place] [address] Jun, Chest wall pain R07.89 [facility] [id number] [place] [address] Apr, Chest wall pain R07.89 [facility] [id number] [place] [address] Apr, [facility] [id number] [place] [address] Apr, Dental abscess K04.7 [facility] [id number] [place] [address] Apr, [facility] [id number] [place] [address] Apr, Chest wall pain R07.89 [facility] [id number] [place] [address] Mar, Chest wall pain R07.89 [facility] [id number] [place] [address] Feb, Chest wall pain R07.89 ; Lateral epicondylitis of right elbow M77.11 and Mixed hyperlipidemia E78.2 [facility] [id number] [place] [address] Feb, Chest wall pain R07.89 [facility] [id number] [place] [address] January, [facility] [id number] [place] [address] January, Chest wall pain R07.89 [facility] [id number] [place] [address] Dec, Chest wall pain R07.89 [facility] [id number] [place] [address] Nov, [facility] [id number] [place] [address] Nov, Hypokalemia E87.6 [facility] [id number] [place] [address] Nov, Hypokalemia E87.6 and Iron deficiency anemia, unspecified iron deficiency anemia type D50.9 [facility] [id number] [place] [address] Nov, [facility] [id number] [place] [address] Nov, Nausea R11.0 and Hypovolemia E86.1 [facility] [id number] [place] [address] Nov, [facility] [address] [address] Nov, [facility] [id number] [place] [address] Nov, Chest wall pain R07.89 [facility] [address] [address] Nov, Bronchitis J40 [facility] [id number] [place] [address] Oct, Chest wall pain R07.89 [facility] [id number] [place] [address] Sep, Chest wall pain R07.89 [facility] [id number] [place] [address] Aug, Chest wall pain R07.89 [facility] [id number] [place] [address] Aug, Chest pain on breathing R07.1 [facility] [id number] [place] [address] Jul, [facility] [id number] [place] [address] 07 Jun, 2016 [facility] [id number] [place] [address] May, Chest wall pain R07.89 ; Iron deficiency anemia, unspecified iron deficiency anemia type D50.9 ; Chronic kidney disease N18.9 and Encounter for immunization Z23 [facility] [id number] [place] [address] May, [facility] [id number] [place] [address] Apr, [facility] [address] [address] Mar, [place] [address] [address] Mar, [place] [address] [address] Feb, [place] [address] [address] Feb, Iron deficiency anemia, unspecified iron deficiency anemia type D50.9 [facility] [id number] [place] [address] Feb, Dehydration E86.0 ; Diarrhea, unspecified type R19.7 ; Dizziness R42 and Other specified hypotension I95.89 [place] [id number] [place] [address] Feb, Anemia, unspecified type D64.9 [place] [id number] [place] [address] January, Anemia, unspecified type D64.9 [place] [id number] [place] [address] January, Paresthesia R20.2 [facility] [id number] [place] [address] January, Chest wall pain R07.89 [facility] [id number] [place] [address] Dec, Insomnia G47.00 [facility] [id number] [place] [address] Dec, Chest pain on breathing R07.1 [facility] [id number] [place] [address] Nov, Chest pain on breathing R07.1 [facility] [address] [address] Oct, [facility] [address] [address] Oct, [facility] [address] [address] Oct, Low back pain M54.5 and Chest wall pain R07.89 [facility] [address] [address] Oct, Pleurodynia R07.81 [facility] [address] [address] Sep, Pleurodynia R07.81 and Other nerve root and plexus disorders G54.8 [facility] [id number] [place] [address] Aug, Chronic kidney disease N18.9 ; Encounter for immunization Z23 ; Chest wall pain R07.89 ; Urinary frequency R35.0 and Vertigo R42 [facility] [id number] [place] [address] Aug, [facility] [id number] [place] [address] Jul, [facility] [address] [address] Jul, [facility] [id number] [place] [address] Jun, [facility] [address] [place] [address] Jun, [facility] [address] [id number] [address] May, [facility] [address] [facility] [id number] [address] May, [facility] [address] [facility] [id number] [place] [address] May, [facility] [address] [facility] [id number] [place] [address] May, Coronary atherosclerosis of unspecified type of vessel, cantwell or graft 414.00 [facility] [address] [id number] [address] Apr, [facility] [address] [facility] [id number] [place] [address] Apr, [facility] [address] [facility] [id number] [place] [address] Apr, [facility] [id number] [address] Apr, [facility] [id number] [address] Apr, [facility] [id number] [address] Apr, Coronary atherosclerosis of unspecified type of vessel, cantwell or graft 414.00 and Left-sided chest wall pain 786.52 [facility] [address] [id number] [place] [address] Mar, [facility] [address] [facility] [id number] [place] [address] Mar, [facility] [address] [facility] [id number] [place] [address] Feb, [facility] [id number] [address] Feb, [facility] [address] [facility] [id number] [place] [address] January, [facility] [address] [facility] [id number] [place] [address] January, [facility] [address] [place] [address] January, [facility] [address] [facility] [id number] [place] [address], [place] [address] January, Neuropathic pain of chest 353.8 [facility] [address] [id number] [place] [address] Dec, [facility] [address] [facility] [id number] [place] [address] Dec, [facility] [id number] [place] [address] Nov, [facility] [address] [facility] [id number] [place] [address] Nov, [facility] [address] [place] [address] Nov, [facility] [address] [address] Nov, [facility] [id number] [address] Nov, [facility] [address] [facility] [id number] [place] [address] Nov, [facility] [address] [facility] [id number] [place] [address] Oct, [facility] [address] [facility] [id number] [place] [address] Oct, [facility] [id number] [address] Oct, [facility] [place] [facility] [address] [id number] [place] [address] Oct, [facility] [place] [facility] [address] [id number] [place] [address] Oct, [facility] [place] [facility] [address] [id number] [place] [address] Oct, [facility] [place] [facility] [address] [id number] [place] [address] Sep, [facility] [place] [facility] [address] [id number] [place] [address] Sep, [facility] [place] [facility] [address] [id number] [place] [address] Sep, [facility] [place] [facility] [address] [id number] [place] [address] Sep, [facility] [place] [facility] [address] [id number] [place] [address] Aug, [facility] [place] [facility] [address] [id number] [place] [address] Aug, [facility] [place] [facility] [address] [id number] [place] [address] Aug, [facility] [place] [facility] [address] [id number] [place] [address] Aug, [facility] [place] [facility] [address] [id number] [place] [address] Aug, [facility] [place] [facility] [address] [id number] [place] [address] Aug, [facility] [place] [facility] [address] [id number] [place] [address] Aug, [facility] [place] [facility] [address] [id number] [place] [address] Aug, [facility] [place] [facility] [address] [id number] [place] [address] Aug, [facility] [place] [facility] [address] [id number] [place] [address] Aug, [facility] [place] [facility] [address] [id number] [place] [address] Jul, [facility] [place] [facility] [address] [id number] [place] [address] Jul, [facility] [place] [facility] [address] [id number] [place] [address] Jul, [facility] [place] [facility] [address] [id number] [place] [address] Jul, [facility] [place] [facility] [address] [id number] [place] [address] Jun, [facility] [place] [facility] [address] [id number] [place] [address] Jun, [facility] [place] [facility] [address] [id number] [place] [address] Jun, [facility] [place] [facility] [address] [id number] [place] [address] Jun, [facility] [place] [facility] [address] [id number] [place] [address] May, [facility] [place] [facility] [address] [id number] [place] [address] May, [facility] [place] [facility] [address] [id number] [place] [address] May, [facility] [place] [facility] [address] [id number] [place] [address] May, [facility] [place] [facility] [address] [id number] [place] [address] Apr, [facility] [place] [facility] [address] [id number] [place] [address] Apr, [facility] [place] [facility] [address] [id number] [place] [address] Feb, [facility] [address] [id number] [place] [address] January, [facility] [address] [id number] [place] [address] January, [facility] [address] [id number] [place] [address] January, [facility] [address] [id number] [place] [address] January, [facility] [address] [id number] [place] [address] January, [facility] [address] [id number] [place] [address] January, [facility] [address] [id number] [place] [address] Dec, [facility] [address] [id number] [place] [address] Dec, [facility] [address] [id number] [place] [address] Dec, [facility] [address] [id number] [place] [address] Dec, [facility] [place] [facility] [address] [id number] [place] [address] Dec, [facility] [place] [facility] [address] [id number] [place] [address] Dec, [facility] [place] [facility] [address] [id number] [place] [address] Dec, [facility] [place] [facility] [address] [id number] [place] [address] Dec, [facility] [place] [facility] [address] [id number] [place] [address] Nov, [facility] [place] [facility] [address] [id number] [place] [address] Nov, [facility] [place] [facility] [address] [id number] [place] [address] Nov, [facility] [place] [facility] [address] [id number] [place] [address] Nov, [facility] [place] [facility] [address] [id number] [place] [address] Nov, [facility] [place] [facility] [address] [id number] [place] [address] Nov, [facility] [place] [facility] [address] [id number] [place] [address] Nov, [facility] [place] [facility] [address] [id number] [place] [address] Oct, [facility] [place] [facility] [address] [id number] [place] [address] Oct, [facility] [place] [facility] [address] [id number] [place] [address] Oct, [facility] [place] [facility] [address] [id number] [place] [address] Oct, [facility] [place] [facility] [address] [id number] [place] [address] Sep, [facility] [place] [facility] [address] [id number] [place] [address] Sep, [facility] [place] [facility] [address] [id number] [place] [address] Sep, [facility] [place] [facility] [address] [id number] [place] [address] Sep, [facility] [place] [facility] [address] [id number] [place] [address] Aug, [facility] [place] [facility] [address] [id number] [place] [address] Aug, [facility] [address] [id number] [place] [address] Jul, [facility] [place] [facility] [address] [id number] [place] [address] Jul, [facility] [place] [facility] [address] [id number] [place] [address] Jun, [facility] [place] [facility] [address] [id number] [place] [address] Jun, [facility] [place] [facility] [address] [id number] [place] [address] Jun, [facility] [place] [facility] [address] [id number] [place] [address] May, [facility] [place] [facility] [address] [id number] [place] [address] Apr, [facility] [place] [facility] [address] [id number] [place] [address] Apr, [facility] [place] [facility] [address] [id number] [place] [address] Mar, [facility] [place] [facility] [address] [id number] [place] [address] Feb, [facility] [place] [facility] [address] [id number] [place] [address] Feb, [facility] [place] [facility] [address] [id number] [place] [address] January, [facility] [place] [facility] [address] [id number] [place] [address] January, [facility] [place] [facility] [address] [id number] [place] [address] Dec, [facility] [place] [facility] [address] [id number] [place] [address] Dec, [facility] [place] [facility] [address] [id number] [place] [address] Dec, [facility] [address] [id number] [place] [address] Dec, [facility] [address] [id number] [place] [address] Nov, [facility] [place] [facility] [address] [id number] [place] [address] Nov, [facility] [address] [id number] [place] [address] Oct, [facility] [place] [facility] [address] [id number] [place] [address] Oct, [facility] [address] [id number] [place] [address] Oct, [facility] [address] [id number] [place] [address] Sep, [facility] [address] [id number] [place] [address] Sep, [facility] [address] [id number] [place] [address] Sep, [facility] [address] [id number] [place] [address] Sep, [facility] [address] [id number] [place] [address] Sep, [facility] [place] [facility] [address] [id number] [place] [address] Aug, [facility] [place] [facility] [address] [id number] [place] [address] Aug, [facility] [place] [facility] [address] [id number] [place] [address] Aug, [facility] [place] [facility] [address] [id number] [place] [address] 14 Aug, 2012 [facility] [place] [facility] [address] [id number] [place] [address] Jul, [facility] [place] [facility] [address] [facility] [id number] [place] [address] Jul, [facility] [place] [facility] [id number] [address] Jul, [facility] [place] [facility] [address] [facility] [id number] [place] [address] Jul, [facility] [place] [facility] [id number] [place] [address], [place] [address] Jun, [facility] [place] [facility] [address] [facility] [id number] [place] [address] Jun, [facility] [place] [facility] [id number] [place] [address] Jun, [facility] [place] [facility] [address] [facility] [id number] [place] [address] Jun, [facility] [place] [facility] [address] [id number] [place] [address] Jun, [facility] [place] [facility] [address] [id number] [place] [address] 24 May, 2012 [facility] [place] [facility] [id number] [address] 13 Sep2011 [facility] [place] [facility] [address] [facility] [id number] [place] [address] 12 Sep2011 [facility] [place] [facility] [address] [facility] [id number] [place] [address] 11 Sep2011 [facility] [place] [facility] [address] [facility] [id number] [place] [address] 10 May, 2012 [facility] [place] [facility] [address] [id number] [address] 06 Sep2011 [facility] [place] [facility] [address] [id number] [place] [address] May, [facility] [place] [facility] [address] [id number] [place] [address] Apr, [facility] [place] [facility] [address] [id number] [place] [address] Apr, [facility] [place] [facility] [address] [id number] [place] [address] Apr, [facility] [place] [facility] [address] [id number] [place] [address] Apr, [facility] [place] [facility] [address] [id number] [place] [address] Apr, [facility] [place] [facility] [address] [id number] [place] [address] Apr, [facility] [place] [facility] [address] [id number] [place] [address] Apr, [facility] [place] [facility] [address] [id number] [place] [address] Apr, [facility] [place] [facility] [address] [id number] [place] [address] Mar, [facility] [place] [facility] [address] [id number] [place] [address] Mar, [facility] [place] [facility] [address] [id number] [place] [address] Mar, [facility] [place] [facility] [address] [id number] [place] [address] Feb, [facility] [place] [facility] [address] [id number] [place] [address] January, [facility] [place] [facility] [address] [id number] [place] [address] January, [facility] [place] [facility] [address] [id number] [place] [address] January, [facility] [address] [facility] [id number] [place] [address] Dec, [facility] [address] [facility] [id number] [place] [address] Dec, [facility] [address] [facility] [id number] [place] [address] Dec, [facility] [id number] [address] Dec, [facility] [address] [facility] [id number] [place] [address] Dec, [facility] [address] [facility] [id number] [place] [address] Dec, IMMUNIZATIONS No Known Immunizations SOCIAL HISTORY Never Assessed REASON FOR VISIT EMR-[facility] [place] PLAN OF CARE VITAL SIGNS MEDICATIONS Unknown [...] dizziness, renal insuff, heat cath showed CAD ([facility]) 01/03/2012 Hospitalization History CABG (Reji) Dr. Banks 02/2012
--- OUTSIDE RECORDS SUMMARY | 2019-05-03 09:29 | XMS REPORT ---
Author Author Migration, Doctor Organization [facility] Address Unknown Phone Unavailable Care Team Providers [employer] Name Role Phone Migration, Doctor Unavailable Unavailable PROBLEMS Type Condition ICD9-CM Code RQL22-ZB Code Onset Dates Condition Status SNOMED Code Problem Centrilobular emphysema J43.2 Active 60450898 Problem Chest wall pain R07.89 Active 190803653 Problem Chronic kidney disease N18.9 Active 183419650 Problem Coronary artery disease involving nisqually coronary artery of nisqually heart without angina pectoris I25.10 Active 0881597784420 Problem Chronic fatigue R53.82 Active 58885553 Problem Vertigo R42 Active 350967000 Problem Anemia, unspecified type D64.9 Active 574064404 Problem Iron deficiency anemia, unspecified iron deficiency anemia type D50.9 Active 36554563 Problem Mixed hyperlipidemia E78.2 Active 209876512 ALLERGIES No Information ENCOUNTERS Encounter Location Date Diagnosis [place] [id number] [place] [address] January, [place] [id number] [place] [address] Dec, Chest wall pain R07.89 [facility] [place] [id number] [place] [address] Nov, Chest wall pain R07.89 [facility] [place] [id number] [place] [address] Nov, [facility] [place] [id number] [place] [address] Oct, Chest wall pain R07.89 [facility] [place] [id number] [place] [address] Oct, Encounter for immunization Z23 [facility] [place] [id number] [place] [address] Sep, [facility] [place] [address], [place] [address] Sep, Chest wall pain R07.89 [facility] [place] [address], [place] [address] Aug, Chest wall pain R07.89 [facility] [place] [id number] [place] [address] Jul, Chest wall pain R07.89 [facility] [place] [id number] [place] [address] Jun, Chest wall pain R07.89 [facility] [place] [id number] [place] [address] Jun, [facility] [place] [id number] [place] [address] Jun, Encounter for immunization Z23 [facility] [place] [id number] [place] [address] Jun, Chest wall pain R07.89 [facility] [place] [id number] [place] [address] Jun, Encounter for immunization Z23 [facility] [place] [id number] [place] [address] May, [facility] [place] [id number] [place] [address] 11 May, 2018 Medicare annual wellness visit, initial Z00.00 ; Chest wall pain R07.89 ; Mixed hyperlipidemia E78.2 ; Coronary artery disease involving nisqually coronary artery of nisqually heart without angina pectoris I25.10 ; History of smoking Z87.891 and Chronic kidney disease N18.9 [facility] [place] [id number] [place] [address] May, Chest wall pain R07.89 [facility] [place] [id number] [place] [address] Apr, Chest wall pain R07.89 [facility] [place] [address], [place] [address] Apr, [facility] [place] [id number] [place] [address] Apr, Chest wall pain R07.89 ; Chronic kidney disease N18.9 ; Iron deficiency anemia, unspecified iron deficiency anemia type D50.9 ; Chronic fatigue R53.82 ; Coronary artery disease involving nisqually coronary artery of nisqually heart without angina pectoris I25.10 and Anemia, unspecified type D64.9 [place] [id number] [place] [address] Apr, Chest wall pain R07.89 [place] [id number] [place] [address] Mar, Chest wall pain R07.89 [place] [id number] [place] [address] Feb, Chest wall pain R07.89 [place] [id number] [place] [address] January, Chest wall pain R07.89 [place] [id number] [place] [address] Dec, Chest wall pain R07.89 ; Coronary artery disease involving nisqually coronary artery of nisqually heart without angina pectoris I25.10 and Vertigo R42 [place] [address] [address] Dec, Chest wall pain R07.89 [place] [id number] [place] [address] Nov, Chest wall pain R07.89 [place] [id number] [place] [address] Oct, Chest wall pain R07.89 [place] [id number] [place] [address] Sep, Chest wall pain R07.89 and Pleurodynia R07.81 [facility] [place] [id number] [place] [address] Sep, [facility] [place] [id number] [place] [address] Sep, Chest wall pain R07.89 and Sore throat J02.9 [facility] [place] [id number] [place] [address] Sep, [facility] [place] [id number] [place] [address] Sep, Sore throat J02.9 and Acute nasopharyngitis J00 [facility] [place] [id number] [place] [address] Sep, [facility] [place] [id number] [place] [address] Aug, Chest wall pain R07.89 [facility] [place] [id number] [place] [address] Jul, Chest wall pain R07.89 [facility] [place] [id number] [place] [address] Jul, [facility] [place] [id number] [place] [address] Jul, Chest wall pain R07.89 [facility] [place] [id number] [place] [address] 06 Jul, 2017 Chest wall pain R07.89 ; Chronic fatigue R53.82 ; Anemia, unspecified type D64.9 ; Vertigo R42 and Coronary artery disease involving nisqually coronary artery of nisqually heart without angina pectoris I25.10 [facility] [place] [id number] [place] [address] Jun, Chest wall pain R07.89 [facility] [place] [id number] [place] [address] Apr, Chest wall pain R07.89 [facility] [place] [id number] [place] [address] Apr, [facility] [place] [id number] [place] [address] Apr, Dental abscess K04.7 [facility] [place] [id number] [place] [address] Apr, [facility] [place] [id number] [place] [address] Apr, Chest wall pain R07.89 [facility] [place] [id number] [place] [address] Mar, Chest wall pain R07.89 [facility] [place] [id number] [place] [address] Feb, Chest wall pain R07.89 ; Lateral epicondylitis of right elbow M77.11 and Mixed hyperlipidemia E78.2 [facility] [place] [id number] [place] [address] Feb, Chest wall pain R07.89 [facility] [place] [id number] [place] [address] January, [facility] [place] [id number] [place] [address] January, Chest wall pain R07.89 [facility] [place] [id number] [place] [address] Dec, Chest wall pain R07.89 [facility] [place] [id number] [place] [address] Nov, [facility] [place] [id number] [place] [address] Nov, Hypokalemia E87.6 [facility] [place] [id number] [place] [address] Nov, Hypokalemia E87.6 and Iron deficiency anemia, unspecified iron deficiency anemia type D50.9 [facility] [place] [id number] [place] [address] Nov, [facility] [place] [id number] [place] [address] Nov, Nausea R11.0 and Hypovolemia E86.1 [facility] [place] [id number] [place] [address] Nov, [facility] [place] [address] [address] Nov, [facility] [place] [id number] [place] [address] Nov, Chest wall pain R07.89 [facility] [place] [address] [address] Nov, Bronchitis J40 [facility] [place] [id number] [place] [address] Oct, Chest wall pain R07.89 [facility] [place] [id number] [place] [address] Sep, Chest wall pain R07.89 [facility] [place] [id number] [place] [address] Aug, Chest wall pain R07.89 [facility] [place] [id number] [place] [address] Aug, Chest pain on breathing R07.1 [facility] [place] [id number] [place] [address] Jul, [facility] [place] [id number] [place] [address] 07 Jun, 2016 [facility] [place] [id number] [place] [address] May, Chest wall pain R07.89 ; Iron deficiency anemia, unspecified iron deficiency anemia type D50.9 ; Chronic kidney disease N18.9 and Encounter for immunization Z23 [facility] [place] [id number] [place] [address] May, [facility] [place] [id number] [place] [address] Apr, [facility] [place] [address] [address] Mar, [place] [address] [address] Mar, [place] [address] [address] Feb, [place] [address] [address] Feb, Iron deficiency anemia, unspecified iron deficiency anemia type D50.9 [facility] [id number] [place] [address] Feb, Dehydration E86.0 ; Diarrhea, unspecified type R19.7 ; Dizziness R42 and Other specified hypotension I95.89 [place] [id number] [place] [address] Feb, Anemia, unspecified type D64.9 [place] [id number] [place] [address] January, Anemia, unspecified type D64.9 [place] [id number] [place] [address] January, Paresthesia R20.2 [facility] [place] [id number] [place] [address] January, Chest wall pain R07.89 [facility] [place] [id number] [place] [address] Dec, Insomnia G47.00 [facility] [place] [id number] [place] [address] Dec, Chest pain on breathing R07.1 [facility] [place] [id number] [place] [address] Nov, Chest pain on breathing R07.1 [facility] [place] [address] [address] Oct, [facility] [place] [address] [address] Oct, [facility] [place] [address] [address] Oct, Low back pain M54.5 and Chest wall pain R07.89 [facility] [place] [address] [address] Oct, Pleurodynia R07.81 [facility] [place] [address] [address] Sep, Pleurodynia R07.81 and Other nerve root and plexus disorders G54.8 [facility] [place] [id number] [place] [address] Aug, Chronic kidney disease N18.9 ; Encounter for immunization Z23 ; Chest wall pain R07.89 ; Urinary frequency R35.0 and Vertigo R42 [facility] [place] [id number] [place] [address] Aug, [facility] [place] [id number] [place] [address] Jul, [facility] [place] [address] [address] Jul, [facility] [place] [id number] [place] [address] Jun, [facility] [place] [address] [place] [address] Jun, [facility] [place] [address] [id number] [address] May, [facility] [place] [address] [facility] [id number], [place] [address] May, [facility] [place] [address] [facility] [id number], [place] [address] May, [facility] [place] [address] [facility] [id number], [place] [address] May, Coronary atherosclerosis of unspecified type of vessel, nisqually or graft 414.00 [facility] [place] [address] [id number], [place] [address] Apr, [facility] [place] [address] [facility] [id number], [place] [address] Apr, [facility] [place] [address] [facility] [id number], [place] [address] Apr, [facility] [place] [id number] [address] Apr, [facility] [place] [id number], [place] [address] Apr, [facility] [place] [id number], [place] [address] Apr, Coronary atherosclerosis of unspecified type of vessel, nisqually or graft 414.00 and Left-sided chest wall pain 786.52 [facility] [place] [address] [id number], [place] [address] Mar, [facility] [place] [address] [facility] [id number], [place] [address] Mar, [facility] [place] [address] [facility] [id number][place] [address] Feb, [facility] [place] [id number] [address] Feb, [facility] [address] [facility] [id number] [place] [address] January, [facility] [address] [facility] [id number] [place] [address] January, [facility] [address] [place] [address] January, [facility] [address] [facility] [id number] [place] [address], [place] [address] January, Neuropathic pain of chest 353.8 [facility] [address] [id number] [place] [address] Dec, [facility] [address] [facility] [id number] [place] [address] Dec, [facility] [id number] [place] [address] Nov, [facility] [address] [facility] [id number] [place] [address] Nov, [facility] [address] [place] [address] Nov, [facility] [address], [place] [address] Nov, [facility] [address] [id number], [place] [address] Nov, [facility] [address] [facility] [id number], [place] [address] Nov, [facility] [address] [facility] [id number], [place] [address] Oct, [facility] [address] [facility] [id number], [place] [address] Oct, [facility] [address] [id number], [place] [address] Oct, [facility] [place] [facility] [address] [id number] [place] [address] Oct, [facility] [place] [facility] [address] [id number] [place] [address] Oct, [facility] [place] [facility] [address] [id number] [place] [address] Oct, [facility] [place] [facility] [address] [id number] [place] [address] Sep, [facility] [place] [facility] [address] [id number] [place] [address] Sep, [facility] [place] [facility] [address] [id number] [place] [address] Sep, [facility] [place] [facility] [address] [id number] [place] [address] Sep, [facility] [place] [facility] [address] [id number] [place] [address] Aug, [facility] [place] [facility] [address] [id number] [place] [address] Aug, [facility] [place] [facility] [address] [id number] [place] [address] Aug, [facility] [place] [facility] [address] [id number] [place] [address] Aug, [facility] [place] [facility] [address] [id number] [place] [address] Aug, [facility] [place] [facility] [address] [id number] [place] [address] Aug, [facility] [place] [facility] [address] [id number] [place] [address] Aug, [facility] [place] [facility] [address] [id number] [place] [address] Aug, [facility] [place] [facility] [address] [id number] [place] [address] Aug, [facility] [place] [facility] [address] [id number] [place] [address] Aug, [facility] [place] [facility] [address] [id number] [place] [address] Jul, [facility] [place] [facility] [address] [id number] [place] [address] Jul, [facility] [place] [facility] [address] [id number] [place] [address] Jul, [facility] [place] [facility] [address] [id number] [place] [address] Jul, [facility] [place] [facility] [address] [id number] [place] [address] Jun, [facility] [place] [facility] [address] [id number] [place] [address] Jun, [facility] [place] [facility] [address] [id number] [place] [address] Jun, [facility] [place] [facility] [address] [id number] [place] [address] Jun, [facility] [place] [facility] [address] [id number] [place] [address] May, [facility] [place] [facility] [address] [id number] [place] [address] May, [facility] [place] [facility] [address] [id number] [place] [address] May, [facility] [place] [facility] [address] [id number] [place] [address] May, [facility] [place] [facility] [address] [id number] [place] [address] Apr, [facility] [place] [facility] [address] [id number] [place] [address] Apr, [facility] [place] [facility] [address] [id number] [place] [address] Feb, [facility] [address] [id number] [place] [address] January, [facility] [address] [id number] [place] [address] January, [facility] [address] [id number] [place] [address] January, [facility] [address] [id number] [place] [address] January, [facility] [address] [id number] [place] [address] January, [facility] [address] [id number] [place] [address] January, [facility] [address] [id number] [place] [place] [address] Dec, [facility] [address] [id number] [place] [address] Dec, [facility] [address] [id number] [place] [address] Dec, [facility] [address] [id number] [place] [address] Dec, [facility] [place] [facility] [address] [id number] [place] [address] Dec, [facility] [place] [facility] [address] [id number] [place] [address] Dec, [facility] [place] [facility] [address] [id number] [place] [address] Dec, [facility] [place] [facility] [address] [id number] [place] [address] Dec, [facility] [place] [facility] [address] [id number] [place] [address] Nov, [facility] [place] [facility] [address] [id number] [place] [address] Nov, [facility] [place] [facility] [address] [id number] [place] [address] Nov, [facility] [place] [facility] [address] [id number] [place] [address] Nov, [facility] [place] [facility] [address] [id number] [place] [address] Nov, [facility] [place] [facility] [address] [id number] [place] [address] Nov, [facility] [place] [facility] [address] [id number] [place] [address] Nov, [facility] [place] [facility] [address] [id number] [place] [address] Oct, [facility] [place] [facility] [address] [id number] [place] [address] Oct, [facility] [place] [facility] [address] [id number] [place] [address] Oct, [facility] [place] [facility] [address] [id number] [place] [address] Oct, [facility] [place] [facility] [address] [id number] [place] [address] Sep, [facility] [place] [facility] [address] [id number] [place] [address] Sep, [facility] [place] [facility] [address] [id number] [place] [address] Sep, [facility] [place] [facility] [address] [id number] [place] [address] Sep, [facility] [place] [facility] [address] [id number] [place] [address] Aug, [facility] [place] [facility] [address] [id number] [place] [address] Aug, [facility] [address] [id number] [place] [address] Jul, [facility] [place] [facility] [address] [id number] [place] [address] Jul, [facility] [place] [facility] [address] [id number] [place] [address] Jun, [facility] [place] [facility] [address] [id number] [place] [address] Jun, [facility] [place] [facility] [address] [id number] [place] [address] Jun, [facility] [place] [facility] [address] [id number] [place] [address] May, [facility] [place] [facility] [address] [id number] [place] [address] Apr, [facility] [place] [facility] [address] [id number] [place] [address] Apr, [facility] [place] [facility] [address] [id number] [place] [address] Mar, [facility] [place] [facility] [address] [id number] [place] [address] Feb, [facility] [place] [facility] [address] [id number] [place] [address] Feb, [facility] [place] [facility] [address] [id number] [place] [address] January, [facility] [place] [facility] [address] [id number] [place] [address] January, [facility] [place] [facility] [address] [id number] [place] [address] Dec, [facility] [place] [facility] [address] [id number] [place] [address] Dec, [facility] [place] [facility] [address] [id number] [place] [address] Dec, [facility] [address] [id number] [place] [address] Dec, [facility] [address] [id number] [place] [address] Nov, [facility] [place] [facility] [address] [id number] [place] [address] Nov, [facility] [address] [id number] [place] [address] Oct, [facility] [place] [facility] [address] [id number] [place] [address] Oct, [facility] [address] [id number] [place] [address] Oct, [facility] [address] [id number] [place] [address] Sep, [facility] [address] [id number] [place] [address] Sep, [facility] [address] [id number] [place] [address] Sep, [facility] [address] [id number] [place] [address] Sep, [facility] [address] [id number], [place] [address] Sep, [facility] [place] [facility] [address] [id number] [place] [address] Aug, [facility] [place] [facility] [address] [id number] [place] [address] Aug, [facility] [place] [facility] [address] [id number] [place] [address] Aug, [facility] [place] [facility] [address] [id number], [place] [address] 14 Aug, 2012 [facility] [place] [facility] [address] [id number] [place] [address] Jul, [facility] [place] [facility] [address] [facility] [id number], [place] [address] Jul, [facility] [place] [facility] [id number] [place] [address] Jul, [facility] [place] [facility] [address] [facility] [id number] [place] [address] Jul, [facility] [place] [facility] [id number] [place] [address], [place] [address] Jun, [facility] [place] [facility] [address] [facility] [id number] [place] [address] Jun, [facility] [place] [facility] [id number] [place] [address] Jun, [facility] [place] [facility] [address] [facility] [id number] [place] [address] Jun, [facility] [place] [facility] [address] [id number], [place] [address] Jun, [facility] [place] [facility] [address] [id number], [place] [address] 24 May, 2012 [facility] [place] [facility] [id number], [place] [address] 13 Sep2011 [facility] [place] [facility] [address] [facility] [id number], [place] [address] 12 Sep2011 [facility] [place] [facility] [address] [facility] [id number][place] [address] 11 Sep2011 [facility] [place] [facility] [address] [facility] [id number], [place] [address] 10 May, 2012 [facility] [place] [facility] [address] [id number], [place] [address] 06 Sep2011 [facility] [place] [facility] [address] [id number] [place] [address] May, [facility] [place] [facility] [address] [id number] [place] [address] Apr, [facility] [place] [facility] [address] [id number] [place] [address] Apr, [facility] [place] [facility] [address] [id number] [place] [address] Apr, [facility] [place] [facility] [address] [id number] [place] [address] Apr, [facility] [place] [facility] [address] [id number] [place] [address] Apr, [facility] [place] [facility] [address] [id number] [place] [address] Apr, [facility] [place] [facility] [address] [id number] [place] [address] Apr, [facility] [place] [facility] [address] [id number] [place] [address] Apr, [facility] [place] [facility] [address] [id number] [place] [address] Mar, [facility] [place] [facility] [address] [id number] [place] [address] Mar, [facility] [place] [facility] [address] [id number] [place] [address] Mar, [facility] [place] [facility] [address] [id number] [place] [address] Feb, [facility] [place] [facility] [address] [id number] [place] [address] January, [facility] [place] [facility] [address] [id number] [place] [address] January, [facility] [place] [facility] [address] [id number] [place] [address] January, [facility] [address] [facility] [id number], [place] [address] Dec, [facility] [address] [facility] [id number], [place] [address] Dec, [facility] [address] [facility] [id number], [place] [address] Dec, [facility] [address], [place] [address] Dec, [facility] [address] [facility] [id number], [place] [address] Dec, [facility] [address] [facility] [id number], [place] [address] Dec, IMMUNIZATIONS No Known Immunizations SOCIAL HISTORY Never Assessed REASON FOR VISIT EMR-[facility] PLAN OF CARE VITAL SIGNS MEDICATIONS Unknown [...] 04/02/2012 Surgical History appendectomy age 10 at [facility] Surgical History cholecystectomy-[facility] [facility] 2007 Surgical History coronary artery bypass graft LAD 02/2012 Surgical History heart cath x2 after bypass, pt has 5 stents Hospitalization History Chest pain, dizziness, renal insuff, heat cath showed CAD ([facility]) 01/03/2012 Hospitalization History CABG ([facility]) Dr. Banks 02/2012
--- OUTSIDE RECORDS SUMMARY | 2019-05-03 09:30 | XMS REPORT ---
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 I25.10 Active 9030841075869 Problem Chronic fatigue R53.82 Active 41276309 Problem Vertigo R42 Active 378184376 Problem Anemia, unspecified type D64.9 Active 010266089 Problem Iron deficiency anemia, unspecified iron deficiency anemia type D50.9 Active 02167696 Problem Mixed hyperlipidemia E78.2 Active 165342321 ALLERGIES No Information ENCOUNTERS Encounter Location Date Diagnosis [facility] [id number] [place] [address] January, [facility] [id number] [place] [address] Dec, Chest wall pain R07.89 [facility] [id number] [place] [address] Nov, Chest wall pain R07.89 [facility] [id number] [place] [address] Nov, [facility] [id number] [place] [address] Oct, Chest wall pain R07.89 [facility] [id number] [place] [address] Oct, Encounter for immunization Z23 [facility] [id number] [place] [address] Sep, [facility] [id number], [place] [address] Sep, Chest wall pain R07.89 [facility] [address], [place] [address] Aug, Chest wall pain R07.89 [facility] [id number] [place] [address] Jul, Chest wall pain R07.89 [facility] [id number] [place] [address] Jun, Chest wall pain R07.89 [facility] [id number] [place] [address] Jun, [facility] [id number] [place] [address] Jun, Encounter for immunization Z23 [facility] [id number] [place] [address] Jun, Chest wall pain R07.89 [facility] [id number] [place] [address] Jun, Encounter for immunization Z23 [facility] [id number] [place] [address] May, [facility] [id number] [place] [address] 11 May, 2018 Medicare annual wellness visit, initial Z00.00 ; Chest wall pain R07.89 ; Mixed hyperlipidemia E78.2 ; Coronary artery disease involving peoria coronary artery of peoria heart without angina pectoris I25.10 ; History of smoking Z87.891 and Chronic kidney disease N18.9 [facility] [id number] [place] [address] May, Chest wall pain R07.89 [facility] [id number] [place] [address] Apr, Chest wall pain R07.89 [facility] [address], [place] [address] Apr, [facility] [id number] [place] [address] Apr, Chest wall pain R07.89 ; Chronic kidney disease N18.9 ; Iron deficiency anemia, unspecified iron deficiency anemia type D50.9 ; Chronic fatigue R53.82 ; Coronary artery disease involving peoria coronary artery of peoria heart without angina pectoris I25.10 and Anemia, unspecified type D64.9 [facility] [id number] [place] [address] Apr, Chest wall pain R07.89 [facility] [id number] [place] [address] Mar, Chest wall pain R07.89 [facility] [id number] [place] [address] Feb, Chest wall pain R07.89 [facility] [id number] [place] [address] January, Chest wall pain R07.89 [facility] [id number] [place] [address] Dec, Chest wall pain R07.89 ; Coronary artery disease involving peoria coronary artery of peoria heart without angina pectoris I25.10 and Vertigo R42 [facility] [address], [place] [address] Dec, Chest wall pain R07.89 [facility] [id number] [place] [address] Nov, Chest wall pain R07.89 [facility] [id number] [place] [address] Oct, Chest wall pain R07.89 [facility] [id number] [place] [address] Sep, Chest wall pain R07.89 and Pleurodynia R07.81 [facility] [id number] [place] [address] Sep, [facility] [id number] [place] [address] Sep, Chest wall pain R07.89 and Sore throat J02.9 [facility] [id number] [place] [address] Sep, [facility] [id number] [place] [address] Sep, Sore throat J02.9 and Acute nasopharyngitis J00 [facility] [id number] [place] [address] Sep, [facility] [id number] [place] [address] Aug, Chest wall pain R07.89 [facility] [id number] [place] [address] Jul, Chest wall pain R07.89 [facility] [id number] [place] [address] Jul, [facility] [id number] [place] [address] Jul, Chest wall pain R07.89 [facility] [id number] [place] [address] 06 Jul, 2017 Chest wall pain R07.89 ; Chronic fatigue R53.82 ; Anemia, unspecified type D64.9 ; Vertigo R42 and Coronary artery disease involving peoria coronary artery of peoria heart without angina pectoris I25.10 [facility] [id number] [place] [address] Jun, Chest wall pain R07.89 [facility] [id number] [place] [address] Apr, Chest wall pain R07.89 [facility] [id number] [place] [address] Apr, [facility] [id number] [place] [address] Apr, Dental abscess K04.7 [facility] [id number] [place] [address] Apr, [facility] [id number] [place] [address] Apr, Chest wall pain R07.89 [facility] [id number] [place] [address] Mar, Chest wall pain R07.89 [facility] [id number] [place] [address] Feb, Chest wall pain R07.89 ; Lateral epicondylitis of right elbow M77.11 and Mixed hyperlipidemia E78.2 [facility] [id number] [place] [address] Feb, Chest wall pain R07.89 [facility] [id number] [place] [address] January, [facility] [id number] [place] [address] January, Chest wall pain R07.89 [facility] [id number] [place] [address] Dec, Chest wall pain R07.89 [facility] [id number] [place] [address] Nov, [facility] [id number] [place] [address] Nov, Hypokalemia E87.6 [facility] [id number] [place] [address] Nov, Hypokalemia E87.6 and Iron deficiency anemia, unspecified iron deficiency anemia type D50.9 [facility] [id number] [place] [address] Nov, [facility] [id number] [place] [address] Nov, Nausea R11.0 and Hypovolemia E86.1 [facility] [id number] [place] [address] Nov, [facility] [address] [address] Nov, [facility] [id number] [place] [address] Nov, Chest wall pain R07.89 [facility] [address] [address] Nov, Bronchitis J40 [facility] [id number] [place] [address] Oct, Chest wall pain R07.89 [facility] [id number] [place] [address] Sep, Chest wall pain R07.89 [facility] [id number] [place] [address] Aug, Chest wall pain R07.89 [facility] [id number] [place] [address] Aug, Chest pain on breathing R07.1 [facility] [id number] [place] [address] Jul, [facility] [id number] [place] [address] 07 Jun, 2016 [facility] [id number] [place] [address] May, Chest wall pain R07.89 ; Iron deficiency anemia, unspecified iron deficiency anemia type D50.9 ; Chronic kidney disease N18.9 and Encounter for immunization Z23 [facility] [id number] [place] [address] May, [facility] [id number] [place] [address] Apr, [facility] [address] [address] Mar, [facility] [address] [address] Mar, [facility] [address] [address] Feb, [facility] [address] [address] Feb, Iron deficiency anemia, unspecified iron deficiency anemia type D50.9 [facility] [id number] [place] [address] Feb, Dehydration E86.0 ; Diarrhea, unspecified type R19.7 ; Dizziness R42 and Other specified hypotension I95.89 [facility] [id number] [place] [address] Feb, Anemia, unspecified type D64.9 [facility] [id number] [place] [address] January, Anemia, unspecified type D64.9 [facility] [id number] [place] [address] January, Paresthesia R20.2 [facility] [id number] [place] [address] January, Chest wall pain R07.89 [facility] [id number] [place] [address] Dec, Insomnia G47.00 [facility] [id number] [place] [address] Dec, Chest pain on breathing R07.1 [facility] [id number] [place] [address] Nov, Chest pain on breathing R07.1 [facility] [address] [address] Oct, [facility] [address] [address] Oct, [facility] [address] [address] Oct, Low back pain M54.5 and Chest wall pain R07.89 [facility] [address] [address] Oct, Pleurodynia R07.81 [facility] [address] [address] Sep, Pleurodynia R07.81 and Other nerve root and plexus disorders G54.8 [facility] [id number] [place] [address] Aug, Chronic kidney disease N18.9 ; Encounter for immunization Z23 ; Chest wall pain R07.89 ; Urinary frequency R35.0 and Vertigo R42 [facility] [id number] [place] [address] Aug, [facility] [id number] [place] [address] Jul, [facility] [address] [address] Jul, [facility] [id number] [place] [address] Jun, [facility] [address] [place] [address] Jun, [facility] [address] [id number], [place] [address] May, [facility] [address] [facility] [id number], [place] [address] May, [facility] [address] [facility] [id number], [place] [address] May, [facility] [address] [facility] [id number], [place] [address] May, Coronary atherosclerosis of unspecified type of vessel, peoria or graft 414.00 [facility] [address] [id number], [place] [address] Apr, [facility] [address] [facility] [id number], [place] [address] Apr, [facility] [address] [facility] [id number], [place] [address] Apr, [facility] [id number], [place] [address] Apr, [facility] [id number], [place] [address] Apr, [facility] [id number], [place] [address] Apr, Coronary atherosclerosis of unspecified type of vessel, peoria or graft 414.00 and Left-sided chest wall pain 786.52 [facility] [address] [id number], [place] [address] Mar, [facility] [address] [facility] [id number], [place] [address] Mar, [facility] [address] [facility] [id number], [place] [address] Feb, [facility] [id number], [place] [address] Feb, [facility] [address] [facility] [id number] [place] [address] January, [facility] [address] [facility] [id number] [place] [address] January, [facility] [id number] [address] January, [facility] [address] [facility] [id number] [place] [address], [place] [address] January, Neuropathic pain of chest 353.8 [facility] [address] [id number] [place] [address] Dec, [facility] [address] [facility] [id number] [place] [address] Dec, [facility] [id number] [place] [address] Nov, [facility] [address] [facility] [id number] [place] [address] Nov, [facility] [id number] [address] Nov, [facility] [address], [place] [address] Nov, [facility] [id number], [place] [address] Nov, [facility] [address] [facility] [id number], [place] [address] Nov, [facility] [address] [facility] [id number], [place] [address] Oct, [facility] [address] [facility] [id number], [place] [address] Oct, [facility] [id number], [place] [address] Oct, [facility] [place] [facility] [address] [id number] [place] [address] Oct, [facility] [place] [facility] [address] [id number] [place] [address] Oct, [facility] [place] [facility] [address] [id number] [place] [address] Oct, [facility] [place] [facility] [address] [id number] [place] [address] Sep, [facility] [place] [facility] [address] [id number] [place] [address] Sep, [facility] [place] [facility] [address] [id number] [place] [address] Sep, [facility] [place] [facility] [address] [id number] [place] [address] Sep, [facility] [place] [facility] [address] [id number] [place] [address] Aug, [facility] [place] [facility] [address] [id number] [place] [address] Aug, [facility] [place] [facility] [address] [id number] [place] [address] Aug, [facility] [place] [facility] [address] [id number] [place] [address] Aug, [facility] [place] [facility] [address] [id number] [place] [address] Aug, [facility] [place] [facility] [address] [id number] [place] [address] Aug, [facility] [place] [facility] [address] [id number] [place] [address] Aug, [facility] [place] [facility] [address] [id number] [place] [address] Aug, [facility] [place] [facility] [address] [id number] [place] [address] Aug, [facility] [place] [facility] [address] [id number] [place] [address] Aug, [facility] [place] [facility] [address] [id number] [place] [address] Jul, [facility] [place] [facility] [address] [id number] [place] [address] Jul, [facility] [place] [facility] [address] [id number] [place] [address] Jul, [facility] [place] [facility] [address] [id number] [place] [address] Jul, [facility] [place] [facility] [address] [id number] [place] [address] Jun, [facility] [place] [facility] [address] [id number] [place] [address] Jun, [facility] [place] [facility] [address] [id number] [place] [address] Jun, [facility] [place] [facility] [address] [id number] [place] [address] Jun, [facility] [place] [facility] [address] [id number] [place] [address] May, [facility] [place] [facility] [address] [id number] [place] [address] May, [facility] [place] [facility] [address] [id number] [place] [address] May, [facility] [place] [facility] [address] [id number] [place] [address] May, [facility] [place] [facility] [address] [id number] [place] [address] Apr, [facility] [place] [facility] [address] [id number] [place] [address] Apr, [facility] [place] [facility] [address] [id number] [place] [address] Feb, [facility] [address] [id number] [place] [address] January, [facility] [address] [id number] [place] [address] January, [facility] [address] [id number] [place] [address] January, [facility] [address] [id number] [place] [address] January, [facility] [address] [id number] [place] [address] January, [facility] [address] [id number] [place] [address] January, [facility] [address] [id number] [place] [address] Dec, [facility] [address] [id number] [place] [address] Dec, [facility] [address] [id number] [place] [address] Dec, [facility] [address] [id number] [place] [address] Dec, [facility] [place] [facility] [address] [id number] [place] [address] Dec, [facility] [place] [facility] [address] [id number] [place] [address] Dec, [facility] [place] [facility] [address] [id number] [place] [address] Dec, [facility] [place] [facility] [address] [id number] [place] [address] Dec, [facility] [place] [facility] [address] [id number] [place] [address] Nov, [facility] [place] [facility] [address] [id number] [place] [address] Nov, [facility] [place] [facility] [address] [id number] [place] [address] Nov, [facility] [place] [facility] [address] [id number] [place] [address] Nov, [facility] [place] [facility] [address] [id number] [place] [address] Nov, [facility] [place] [facility] [address] [id number] [place] [address] Nov, [facility] [place] [facility] [address] [id number] [place] [address] Nov, [facility] [place] [facility] [address] [id number] [place] [address] Oct, [facility] [place] [facility] [address] [id number] [place] [address] Oct, [facility] [place] [facility] [address] [id number] [place] [address] Oct, [facility] [place] [facility] [address] [id number] [place] [address] Oct, [facility] [place] [facility] [address] [id number] [place] [address] Sep, [facility] [place] [facility] [address] [id number] [place] [address] Sep, [facility] [place] [facility] [address] [id number] [place] [address] Sep, [facility] [place] [facility] [address] [id number] [place] [address] Sep, [facility] [place] [facility] [address] [id number] [place] [address] Aug, [facility] [place] [facility] [address] [id number] [place] [address] Aug, [facility] [address] [id number] [place] [address] Jul, [facility] [place] [facility] [address] [id number] [place] [address] Jul, [facility] [place] [facility] [address] [id number] [place] [address] Jun, [facility] [place] [facility] [address] [id number] [place] [address] Jun, [facility] [place] [facility] [address] [id number] [place] [address] Jun, [facility] [place] [facility] [address] [id number] [place] [address] May, [facility] [place] [facility] [address] [id number] [place] [address] Apr, [facility] [place] [facility] [address] [id number] [place] [address] Apr, [facility] [place] [facility] [address] [id number] [place] [address] Mar, [facility] [place] [facility] [address] [id number] [place] [address] Feb, [facility] [place] [facility] [address] [id number] [place] [address] Feb, [facility] [place] [facility] [address] [id number] [place] [address] January, [facility] [place] [facility] [address] [id number] [place] [address] January, [facility] [place] [facility] [address] [id number] [place] [address] Dec, [facility] [place] [facility] [address] [id number] [place] [address] Dec, [facility] [place] [facility] [address] [id number] [place] [address] Dec, [facility] [address] [id number] [place] [address] Dec, [facility] [address] [id number] [place] [address] Nov, [facility] [place] [facility] [address] [id number] [place] [address] Nov, [facility] [address] [id number] [place] [address] Oct, [facility] [place] [facility] [address] [id number] [place] [address] Oct, [facility] [address] [id number] [place] [address] Oct, [facility] [address] [id number] [place] [address] Sep, [facility] [address] [id number] [place] [address] Sep, [facility] [address] [id number] [place] [address] Sep, [facility] [address] [id number] [place] [address] Sep, [facility] [address] [id number], [place] [address] Sep, [facility] [place] [facility] [address] [id number] [place] [address] Aug, [facility] [place] [facility] [address] [id number] [place] [address] Aug, [facility] [place] [facility] [address] [id number] [place] [address] Aug, [facility] [place] [facility] [address] [id number], [place] [address] 14 Aug, 2012 [facility] [place] [facility] [address] [id number] [place] [address] Jul, [facility] [place] [facility] [address] [facility] [id number], [place] [address] Jul, [facility] [place] [facility] [id number] [address] Jul, [facility] [place] [facility] [address] [facility] [id number] [place] [address] Jul, [facility] [place] [facility] [id number] [place] [address], [place] [address] Jun, [facility] [place] [facility] [address] [facility] [id number] [place] [address] Jun, [facility] [place] [facility] [id number] [place] [address] Jun, [facility] [place] [facility] [address] [facility] [id number] [place] [address] Jun, [facility] [place] [facility] [address] [id number], [place] [address] Jun, [facility] [place] [facility] [address] [id number], [place] [address] 24 May, 2012 [facility] [place] [facility] [id number], [place] [address] 13 Sep2011 [facility] [place] [facility] [address] [facility] [id number], [place] [address] 12 Sep2011 [facility] [place] [facility] [address] [facility] [id number], [place] [address] 11 Sep2011 [facility] [place] [facility] [address] [facility] [id number], [place] [address] 10 May, 2012 [facility] [place] [facility] [address] [id number], [place] [address] 06 Sep2011 [facility] [place] [facility] [address] [id number] [place] [address] May, [facility] [place] [facility] [address] [id number] [place] [address] Apr, [facility] [place] [facility] [address] [id number] [place] [address] Apr, [facility] [place] [facility] [address] [id number] [place] [address] Apr, [facility] [place] [facility] [address] [id number] [place] [address] Apr, [facility] [place] [facility] [address] [id number] [place] [address] Apr, [facility] [place] [facility] [address] [id number] [place] [address] Apr, [facility] [place] [facility] [address] [id number] [place] [address] Apr, [facility] [place] [facility] [address] [id number] [place] [address] Apr, [facility] [place] [facility] [address] [id number] [place] [address] Mar, [facility] [place] [facility] [address] [id number] [place] [address] Mar, [facility] [place] [facility] [address] [id number] [place] [address] Mar, [facility] [place] [facility] [address] [id number] [place] [address] Feb, [facility] [place] [facility] [address] [id number] [place] [address] January, [facility] [place] [facility] [address] [id number] [place] [address] January, [facility] [place] [facility] [address] [id number] [place] [address] January, [facility] [address] [facility] [id number], [place] [address] Dec, [facility] [address] [facility] [id number], [place] [address] Dec, [facility] [address] [facility] [id number], [place] [address] Dec, [facility] [id number] [address] Dec, [facility] [address] [facility] [id number], [place] [address] Dec, [facility] [address] [facility] [id number], [place] [address] Dec, IMMUNIZATIONS No Known Immunizations SOCIAL HISTORY Never Assessed REASON FOR VISIT EMR-[facility] PLAN OF CARE VITAL SIGNS MEDICATIONS Unknown [...] 04/02/2012 Surgical History appendectomy age 10 at [facility] Surgical History cholecystectomy-[facility] 2007 Surgical History coronary artery bypass graft LAD 02/2012 Surgical History heart cath x2 after bypass, pt has 5 stents Hospitalization History Chest pain, dizziness, renal insuff, heat cath showed CAD ([facility]) 01/03/2012 Hospitalization History CABG ([facility]) Dr. Banks 02/2012
--- OUTSIDE RECORDS SUMMARY | 2019-05-03 09:31 | XMS REPORT ---
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 angina pectoris I25.10 Active 3276732511501 Problem Chronic fatigue R53.82 Active 11001185 Problem Vertigo R42 Active 643233821 Problem Anemia, unspecified type D64.9 Active 533755682 Problem Iron deficiency anemia, unspecified iron deficiency anemia type D50.9 Active 29980600 Problem Mixed hyperlipidemia E78.2 Active 288484034 ALLERGIES No Information ENCOUNTERS Encounter Location Date Diagnosis [place] [id number] [place] [address] January, [place] [id number] [place] [address] Dec, Chest wall pain R07.89 [facility] [id number] [place] [address] Nov, Chest wall pain R07.89 [facility] [id number] [place] [phone] Nov, [facility] [id number] [place] [address] Oct, Chest wall pain R07.89 [facility] [id number] [place] [address] Oct, Encounter for immunization Z23 [facility] [id number] [place] [address] Sep, [facility] [address] [address] Sep, Chest wall pain R07.89 [facility] [address], [place] [address] Aug, Chest wall pain R07.89 [facility] [id number] [place] [address] Jul, Chest wall pain R07.89 [facility] [id number] [place] [address] Jun, Chest wall pain R07.89 [facility] [id number] [place] [address] Jun, [facility] [id number] [place] [address] Jun, Encounter for immunization Z23 [facility] [id number] [place] [address] Jun, Chest wall pain R07.89 [facility] [id number] [place] [address] Jun, Encounter for immunization Z23 [facility] [id number] [place] [address] May, [facility] [id number] [place] [address] 11 May, 2018 Medicare annual wellness visit, initial Z00.00 ; Chest wall pain R07.89 ; Mixed hyperlipidemia E78.2 ; Coronary artery disease involving kake coronary artery of kake heart without angina pectoris I25.10 ; History of smoking Z87.891 and Chronic kidney disease N18.9 [facility] [id number] [place] [address] May, Chest wall pain R07.89 [facility] [id number] [place] [address] Apr, Chest wall pain R07.89 [facility] [address] [address] Apr, [facility] [id number] [place] [address] Apr, Chest wall pain R07.89 ; Chronic kidney disease N18.9 ; Iron deficiency anemia, unspecified iron deficiency anemia type D50.9 ; Chronic fatigue R53.82 ; Coronary artery disease involving kake coronary artery of kake heart without angina pectoris I25.10 and Anemia, unspecified type D64.9 [place] [id number] [place] [address] Apr, Chest wall pain R07.89 [place] [id number] [place] [address] Mar, Chest wall pain R07.89 [place] [id number] [place] [address] Feb, Chest wall pain R07.89 [place] [id number] [place] [address] January, Chest wall pain R07.89 [place] [id number] [place] [address] Dec, Chest wall pain R07.89 ; Coronary artery disease involving kake coronary artery of kake heart without angina pectoris I25.10 and Vertigo R42 [place] [address], [place] [address] Dec, Chest wall pain R07.89 [place] [id number] [place] [address] Nov, Chest wall pain R07.89 [place] [id number] [place] [address] Oct, Chest wall pain R07.89 [place] [id number] [place] [address] Sep, Chest wall pain R07.89 and Pleurodynia R07.81 [facility] [id number] [place] [address] Sep, [facility] [id number] [place] [address] Sep, Chest wall pain R07.89 and Sore throat J02.9 [facility] [id number] [place] [address] Sep, [facility] [id number] [place] [address] Sep, Sore throat J02.9 and Acute nasopharyngitis J00 [facility] [id number] [place] [address] Sep, [facility] [id number] [place] [address] Aug, Chest wall pain R07.89 [facility] [id number] [place] [address] Jul, Chest wall pain R07.89 [facility] [id number] [place] [address] Jul, [facility] [id number] [place] [address] Jul, Chest wall pain R07.89 [facility] [id number] [place] [address] 06 Jul, 2017 Chest wall pain R07.89 ; Chronic fatigue R53.82 ; Anemia, unspecified type D64.9 ; Vertigo R42 and Coronary artery disease involving kake coronary artery of kake heart without angina pectoris I25.10 [facility] [id number] [place] [address] Jun, Chest wall pain R07.89 [facility] [id number] [place] [address] Apr, Chest wall pain R07.89 [facility] [id number] [place] [address] Apr, [facility] [id number] [place] [address] Apr, Dental abscess K04.7 [facility] [id number] [place] [address] Apr, [facility] [id number] [place] [address] Apr, Chest wall pain R07.89 [facility] [id number] [place] [address] Mar, Chest wall pain R07.89 [facility] [id number] [place] [address] Feb, Chest wall pain R07.89 ; Lateral epicondylitis of right elbow M77.11 and Mixed hyperlipidemia E78.2 [facility] [id number] [place] [address] Feb, Chest wall pain R07.89 [facility] [id number] [place] [address] January, [facility] [id number] [place] [address] January, Chest wall pain R07.89 [facility] [id number] [place] [address] Dec, Chest wall pain R07.89 [facility] [id number] [place] [address] Nov, [facility] [id number] [place] [address] Nov, Hypokalemia E87.6 [facility] [id number] [place] [address] Nov, Hypokalemia E87.6 and Iron deficiency anemia, unspecified iron deficiency anemia type D50.9 [facility] [id number] [place] [address] Nov, [facility] [id number] [place] [address] Nov, Nausea R11.0 and Hypovolemia E86.1 [facility] [id number] [place] [address] Nov, [facility] [address] [address] Nov, [facility] [id number] [place] [address] Nov, Chest wall pain R07.89 [facility] [address] [address] Nov, Bronchitis J40 [facility] [id number] [place] [address] Oct, Chest wall pain R07.89 [facility] [id number] [place] [address] Sep, Chest wall pain R07.89 [facility] [id number] [place] [address] Aug, Chest wall pain R07.89 [facility] [id number] [place] [address] Aug, Chest pain on breathing R07.1 [facility] [id number] [place] [address] Jul, [facility] [id number] [place] [phone] 07 Jun, 2016 [facility] [id number] [place] [address] May, Chest wall pain R07.89 ; Iron deficiency anemia, unspecified iron deficiency anemia type D50.9 ; Chronic kidney disease N18.9 and Encounter for immunization Z23 [facility] [id number] [place] [address] May, [facility] [id number] [place] [address] Apr, [facility] [address] [address] Mar, [place] [address] [address] Mar, [place] [address] [address] Feb, [place] [address] [address] Feb, Iron deficiency anemia, unspecified iron deficiency anemia type D50.9 [facility] [id number] [place] [address] Feb, Dehydration E86.0 ; Diarrhea, unspecified type R19.7 ; Dizziness R42 and Other specified hypotension I95.89 [place] [id number] [place] [address] Feb, Anemia, unspecified type D64.9 [place] [id number] [place] [address] January, Anemia, unspecified type D64.9 [place] [id number] [place] [address] January, Paresthesia R20.2 [facility] [id number] [place] [address] January, Chest wall pain R07.89 [facility] [id number] [place] [address] Dec, Insomnia G47.00 [facility] [id number] [place] [address] Dec, Chest pain on breathing R07.1 [facility] [id number] [place] [address] Nov, Chest pain on breathing R07.1 [facility] [address] [address] Oct, [facility] [address] [address] Oct, [facility] [address] [address] Oct, Low back pain M54.5 and Chest wall pain R07.89 [facility] [address] [address] Oct, Pleurodynia R07.81 [facility] [address] [address] Sep, Pleurodynia R07.81 and Other nerve root and plexus disorders G54.8 [facility] [id number] [place] [address] Aug, Chronic kidney disease N18.9 ; Encounter for immunization Z23 ; Chest wall pain R07.89 ; Urinary frequency R35.0 and Vertigo R42 [facility] [id number] [place] [address] Aug, [facility] [id number] [place] [address] Jul, [facility] [address] [address] Jul, [facility] [id number] [place] [address] Jun, [facility] [address] [place] [address] Jun, [facility] [address] [id number], [place] [address] May, [facility] [address] [facility] [id number], [place] [address] May, [facility] [address] [facility] [id number], [place] [address] May, [facility] [address] [facility] [id number], [place] [address] May, Coronary atherosclerosis of unspecified type of vessel, kake or graft 414.00 [facility] [address] [id number], [place] [address] Apr, [facility] [address] [facility] [id number], [place] [address] Apr, [facility] [address] [facility] [id number], [place] [address] Apr, [facility] [id number] [address] Apr, [facility] [id number] [address] Apr, [facility] [id number] [address] Apr, Coronary atherosclerosis of unspecified type of vessel, kake or graft 414.00 and Left-sided chest wall pain 786.52 [facility] [address] [id number], [place] [address] Mar, [facility] [address] [facility] [id number], [place] [address] Mar, [facility] [address] [facility] [id number], [place] [address] Feb, [facility] [id number], [place] [address] Feb, [facility] [address] [facility] [id number] [place] [address] January, [facility] [address] [facility] [id number] [place] [address] January, [facility] [address] [address] January, [facility] [address] [facility] [id number] [place] [address], [place] [address] January, Neuropathic pain of chest 353.8 [facility] [address] [id number] [place] [address] Dec, [facility] [address] [facility] [id number] [place] [address] Dec, [facility] [address] [place] [address] Nov, [facility] [address] [facility] [id number] [place] [address] Nov, [facility] [address] [address] Nov, [facility] [address], [place] [address] Nov, [facility] [id number] [address] Nov, [facility] [address] [facility] [id number], [place] [address] Nov, [facility] [address] [facility] [id number], [place] [address] Oct, [facility] [address] [facility] [id number], [place] [address] Oct, [facility] [id number], [place] [address] Oct, [facility] [place] [facility] [address] [id number] [place] [address] Oct, [facility] [place] [facility] [address] [id number] [place] [address] Oct, [facility] [place] [facility] [address] [id number] [place] [address] Oct, [facility] [place] [facility] [address] [id number] [place] [address] Sep, [facility] [place] [facility] [address] [id number] [place] [address] Sep, [facility] [place] [facility] [address] [id number] [place] [address] Sep, [facility] [place] [facility] [address] [id number] [place] [address] Sep, [facility] [place] [facility] [address] [id number] [place] [address] Aug, [facility] [place] [facility] [address] [id number] [place] [address] Aug, [facility] [place] [facility] [address] [id number] [place] [address] Aug, [facility] [place] [facility] [address] [id number] [place] [address] Aug, [facility] [place] [facility] [address] [id number] [place] [address] Aug, [facility] [place] [facility] [address] [id number] [place] [address] Aug, [facility] [place] [facility] [address] [id number] [place] [address] Aug, [facility] [place] [facility] [address] [id number] [place] [address] Aug, [facility] [place] [facility] [address] [id number] [place] [address] Aug, [facility] [place] [facility] [address] [id number] [place] [address] Aug, [facility] [place] [facility] [address] [id number] [place] [address] Jul, [facility] [place] [facility] [address] [id number] [place] [address] Jul, [facility] [place] [facility] [address] [id number] [place] [address] Jul, [facility] [place] [facility] [address] [id number] [place] [address] Jul, [facility] [place] [facility] [address] [id number] [place] [address] Jun, [facility] [place] [facility] [address] [id number] [place] [address] Jun, [facility] [place] [facility] [address] [id number] [place] [address] Jun, [facility] [place] [facility] [address] [id number] [place] [address] Jun, [facility] [place] [facility] [address] [id number] [place] [address] May, [facility] [place] [facility] [address] [id number] [place] [address] May, [facility] [place] [facility] [address] [id number] [place] [address] May, [facility] [place] [facility] [address] [id number] [place] [address] May, [facility] [place] [facility] [address] [id number] [place] [address] Apr, [facility] [place] [facility] [address] [id number] [place] [address] Apr, [facility] [place] [facility] [address] [id number] [place] [address] Feb, [facility] [address] [id number] [place] [address] January, [facility] [address] [id number] [place] [address] January, [facility] [address] [id number] [place] [address] January, [facility] [address] [id number] [place] [address] January, [facility] [address] [id number] [place] [address] January, [facility] [address] [id number] [place] [address] January, [facility] [address] [id number] [place] [address] Dec, [facility] [address] [id number] [place] [address] Dec, [facility] [address] [id number] [place] [address] Dec, [facility] [address] [id number] [place] [address] Dec, [facility] [place] [facility] [address] [id number] [place] [address] Dec, [facility] [place] [facility] [address] [id number] [place] [address] Dec, [facility] [place] [facility] [address] [id number] [place] [address] Dec, [facility] [place] [facility] [address] [id number] [place] [address] Dec, [facility] [place] [facility] [address] [id number] [place] [address] Nov, [facility] [place] [facility] [address] [id number] [place] [address] Nov, [facility] [place] [facility] [address] [id number] [place] [address] Nov, [facility] [place] [facility] [address] [id number] [place] [address] Nov, [facility] [place] [facility] [address] [id number] [place] [address] Nov, [facility] [place] [facility] [address] [id number] [place] [address] Nov, [facility] [place] [facility] [address] [id number] [place] [address] Nov, [facility] [place] [facility] [address] [id number] [place] [address] Oct, [facility] [place] [facility] [address] [id number] [place] [address] Oct, [facility] [place] [facility] [address] [id number] [place] [address] Oct, [facility] [place] [facility] [address] [id number] [place] [address] Oct, [facility] [place] [facility] [address] [id number] [place] [address] Sep, [facility] [place] [facility] [address] [id number] [place] [address] Sep, [facility] [place] [facility] [address] [id number] [place] [address] Sep, [facility] [place] [facility] [address] [id number] [place] [address] Sep, [facility] [place] [facility] [address] [id number] [place] [address] Aug, [facility] [place] [facility] [address] [id number] [place] [address] Aug, [facility] [address] [id number] [place] [address] Jul, [facility] [place] [facility] [address] [id number] [place] [address] Jul, [facility] [place] [facility] [address] [id number] [place] [address] Jun, [facility] [place] [facility] [address] [id number] [place] [address] Jun, [facility] [place] [facility] [address] [id number] [place] [address] Jun, [facility] [place] [facility] [address] [id number] [place] [address] May, [facility] [place] [facility] [address] [id number] [place] [address] Apr, [facility] [place] [facility] [address] [id number] [place] [address] Apr, [facility] [place] [facility] [address] [id number] [place] [address] Mar, [facility] [place] [facility] [address] [id number] [place] [address] Feb, [facility] [place] [facility] [address] [id number] [place] [address] Feb, [facility] [place] [facility] [address] [id number] [place] [address] January, [facility] [place] [facility] [address] [id number] [place] [address] January, [facility] [place] [facility] [address] [id number] [place] [address] Dec, [facility] [place] [facility] [address] [id number] [place] [address] Dec, [facility] [place] [facility] [address] [id number] [place] [address] Dec, [facility] [address] [id number] [place] [address] Dec, [facility] [address] [id number] [place] [address] Nov, [facility] [place] [facility] [address] [address] [id number] [place] [address] Nov, [facility] [address] [id number] [place] [address] Oct, [facility] [place] [facility] [address] [id number] [place] [address] Oct, [facility] [address] [id number] [place] [address] Oct, [facility] [address] [id number] [place] [address] Sep, [facility] [address] [id number] [place] [address] Sep, [facility] [address] [id number] [place] [address] Sep, [facility] [address] [id number] [place] [address] Sep, [facility] [address] [id number], [place] [address] Sep, [facility] [place] [facility] [address] [id number] [place] [address] Aug, [facility] [place] [facility] [address] [id number] [place] [address] Aug, [facility] [place] [facility] [address] [id number] [place] [address] Aug, [facility] [place] [facility] [address] [id number], [place] [address] 14 Aug, 2012 [facility] [place] [facility] [address] [id number] [place] [address] Jul, [facility] [place] [facility] [address] [facility] [id number], [place] [address] Jul, [facility] [place] [facility] [id number] [address] Jul, [facility] [place] [facility] [address] [facility] [id number] [place] [address] Jul, [facility] [place] [facility] [id number] [place] [address], [place] [address] Jun, [facility] [place] [facility] [address] [facility] [id number] [place] [address] Jun, [facility] [place] [facility] [id number] [place] [address] Jun, [facility] [place] [facility] [address] [facility] [id number] [place] [address] Jun, [facility] [place] [facility] [address] [id number] [address] Jun, [facility] [place] [facility] [address] [id number], [place] [address] 24 May, 2012 [facility] [place] [facility] [id number] [address] 13 Sep2011 [facility] [place] [facility] [address] [facility] [id number], [place] [address] 12 Sep2011 [facility] [place] [facility] [address] [facility] [id number], [place] [address] 11 Sep2011 [facility] [place] [facility] [address] [facility] [id number], [place] [address] 10 May, 2012 [facility] [place] [facility] [address] [id number], [place] [address] 06 Sep2011 [facility] [place] [facility] [address] [id number] [place] [address] May, [facility] [place] [facility] [address] [id number] [place] [address] Apr, [facility] [place] [facility] [address] [id number] [place] [address] Apr, [facility] [place] [facility] [address] [id number] [place] [address] Apr, [facility] [place] [facility] [address] [id number] [place] [address] Apr, [facility] [place] [facility] [address] [id number] [place] [address] Apr, [facility] [place] [facility] [address] [id number] [place] [address] Apr, [facility] [place] [facility] [address] [id number] [place] [address] Apr, [facility] [place] [facility] [address] [id number] [place] [address] Apr, [facility] [place] [facility] [address] [id number] [place] [address] Mar, [facility] [place] [facility] [address] [id number] [place] [address] Mar, [facility] [place] [facility] [address] [id number] [place] [address] Mar, [facility] [place] [facility] [address] [id number] [place] [address] Feb, [facility] [place] [facility] [address] [id number] [place] [address] January, [facility] [place] [facility] [address] [id number] [place] [address] January, [facility] [place] [facility] [address] [id number] [place] [address] January, [facility] [address] [facility] [id number], [place] [address] Dec, [facility] [address] [facility] [id number], [place] [address] Dec, [facility] [address] [facility] [id number], [place] [address] Dec, [facility] [address] [address] Dec, [facility] [address] [facility] [id number], [place] [address] Dec, [facility] [address] [facility] [id number], [place] [address] Dec, IMMUNIZATIONS No Known Immunizations SOCIAL HISTORY Never Assessed REASON FOR VISIT EMR-[facility] PLAN OF CARE VITAL SIGNS MEDICATIONS Unknown [...] 04/02/2012 Surgical History appendectomy age 10 at [facility] Surgical History cholecystectomy-[facility] [facility] 2007 Surgical History coronary artery bypass graft LAD 02/2012 Surgical History heart cath x2 after bypass, pt has 5 stents Hospitalization History Chest pain, dizziness, renal insuff, heat cath showed CAD ([facility]) 01/03/2012 Hospitalization History CABG ([facility]) Dr. Banks 02/2012
--- OUTSIDE RECORDS SUMMARY | 2019-05-03 09:31 | XMS REPORT ---
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 Active 0456897883976 Problem Chronic fatigue R53.82 Active 90697675 Problem Vertigo R42 Active 298360299 Problem Anemia, unspecified type D64.9 Active 255113417 Problem Iron deficiency anemia, unspecified iron deficiency anemia type D50.9 Active 84592093 Problem Mixed hyperlipidemia E78.2 Active 181336052 ALLERGIES No Information ENCOUNTERS Encounter Location Date Diagnosis [place] [id number] [place] [address] January, [place] [id number] [place] [address] Dec, Chest wall pain R07.89 [facility], [place] [id number] [place] [address] Nov, Chest wall pain R07.89 [facility], [place] [id number] [place] [address] Nov, [facility], [place] [id number] [place] [address] Oct, Chest wall pain R07.89 [facility], [place] [id number] [place] [address] Oct, Encounter for immunization Z23 [facility], [place] [id number] [place] [address] Sep, [facility], [place] [address], [place] [address] Sep, Chest wall pain R07.89 [facility], [place] [address], [place] [address] Aug, Chest wall pain R07.89 [facility], [place] [id number] [place] [address] Jul, Chest wall pain R07.89 [facility], [place] [id number] [place] [address] Jun, Chest wall pain R07.89 [facility], [place] [id number] [place] [address] Jun, [facility], [place] [id number] [place] [address] Jun, Encounter for immunization Z23 [facility], [place] [id number] [place] [address] Jun, Chest wall pain R07.89 [facility], [place] [id number] [place] [address] Jun, Encounter for immunization Z23 [facility], [place] [id number] [place] [address] May, [facility], [place] [id number] [place] [address] 11 May, 2018 Medicare annual wellness visit, initial Z00.00 ; Chest wall pain R07.89 ; Mixed hyperlipidemia E78.2 ; Coronary artery disease involving kiana coronary artery of kiana heart without angina pectoris I25.10 ; History of smoking Z87.891 and Chronic kidney disease N18.9 [facility], [place] [id number] [place] [address] May, Chest wall pain R07.89 [facility], [place] [id number] [place] [address] Apr, Chest wall pain R07.89 [facility], [place] [address], [place] [address] Apr, [facility], [place] [id number] [place] [address] Apr, Chest wall pain R07.89 ; Chronic kidney disease N18.9 ; Iron deficiency anemia, unspecified iron deficiency anemia type D50.9 ; Chronic fatigue R53.82 ; Coronary artery disease involving kiana coronary artery of kiana heart without angina pectoris I25.10 and Anemia, unspecified type D64.9 [place] [id number] [place] [address] Apr, Chest wall pain R07.89 [place] [id number] [place] [address] Mar, Chest wall pain R07.89 [place] [id number] [place] [address] Feb, Chest wall pain R07.89 [place] [id number] [place] [address] January, Chest wall pain R07.89 [place] [id number] [place] [address] Dec, Chest wall pain R07.89 ; Coronary artery disease involving kiana coronary artery of kiana heart without angina pectoris I25.10 and Vertigo R42 [place] [address], [place] [address] Dec, Chest wall pain R07.89 [place] [id number] [place] [address] Nov, Chest wall pain R07.89 [place] [id number] [place] [address] Oct, Chest wall pain R07.89 [place] [id number] [place] [address] Sep, Chest wall pain R07.89 and Pleurodynia R07.81 [facility], [place] [id number] [place] [address] Sep, [facility], [place] [id number] [place] [address] Sep, Chest wall pain R07.89 and Sore throat J02.9 [facility], [place] [id number] [place] [address] Sep, [facility], [place] [id number] [place] [address] Sep, Sore throat J02.9 and Acute nasopharyngitis J00 [facility], [place] [id number] [place] [address] Sep, [facility], [place] [id number] [place] [address] Aug, Chest wall pain R07.89 [facility], [place] [id number] [place] [address] Jul, Chest wall pain R07.89 [facility], [place] [id number] [place] [address] Jul, [facility], [place] [id number] [place] [address] Jul, Chest wall pain R07.89 [facility], [place] [id number] [place] [address] 06 Jul, 2017 Chest wall pain R07.89 ; Chronic fatigue R53.82 ; Anemia, unspecified type D64.9 ; Vertigo R42 and Coronary artery disease involving kiana coronary artery of kiana heart without angina pectoris I25.10 [facility], [place] [id number] [place] [address] Jun, Chest wall pain R07.89 [facility], [place] [address] [place] [address] Apr, Chest wall pain R07.89 [facility], [place] [id number] [place] [address] Apr, [facility], [place] [id number] [place] [address] Apr, Dental abscess K04.7 [facility], [place] [id number] [place] [address] Apr, [facility], [place] [id number] [place] [address] Apr, Chest wall pain R07.89 [facility], [place] [id number] [place] [address] Mar, Chest wall pain R07.89 [facility], [place] [id number] [place] [address] Feb, Chest wall pain R07.89 ; Lateral epicondylitis of right elbow M77.11 and Mixed hyperlipidemia E78.2 [facility], [place] [id number] [place] [address] Feb, Chest wall pain R07.89 [facility], [place] [id number] [place] [address] January, [facility], [place] [id number] [place] [address] January, Chest wall pain R07.89 [facility], [place] [address] [place] [address] Dec, Chest wall pain R07.89 [facility], [place] [id number] [place] [address] Nov, [facility], [place] [id number] [place] [address] Nov, Hypokalemia E87.6 [facility], [place] [id number] [place] [address] Nov, Hypokalemia E87.6 and Iron deficiency anemia, unspecified iron deficiency anemia type D50.9 [facility], [place] [id number] [place] [address] Nov, [facility], [place] [id number] [place] [address] Nov, Nausea R11.0 and Hypovolemia E86.1 [facility], [place] [id number] [place] [address] Nov, [facility], [place] [address] [address] Nov, [facility], [place] [id number] [place] [address] Nov, Chest wall pain R07.89 [facility], [place] [address] [address] Nov, Bronchitis J40 [facility], [place] [id number] [place] [address] Oct, Chest wall pain R07.89 [facility], [place] [id number] [place] [address] Sep, Chest wall pain R07.89 [facility], [place] [id number] [place] [address] Aug, Chest wall pain R07.89 [facility], [place] [id number] [place] [address] Aug, Chest pain on breathing R07.1 [facility], [place] [id number] [place] [address] Jul, [facility], [place] [id number] [place] [address] 07 Jun, 2016 [facility], [place] [id number] [place] [address] May, Chest wall pain R07.89 ; Iron deficiency anemia, unspecified iron deficiency anemia type D50.9 ; Chronic kidney disease N18.9 and Encounter for immunization Z23 [facility], [place] [id number] [place] [address] May, [facility], [place] [id number] [place] [address] Apr, [facility], [place] [address] [address] Mar, [place] [address] [address] Mar, [place] [address] [address] Feb, [place] [address] [address] Feb, Iron deficiency anemia, unspecified iron deficiency anemia type D50.9 [facility] [id number] [place] [address] Feb, Dehydration E86.0 ; Diarrhea, unspecified type R19.7 ; Dizziness R42 and Other specified hypotension I95.89 [place] [id number] [place] [address] Feb, Anemia, unspecified type D64.9 [place] [id number] [place] [address] January, Anemia, unspecified type D64.9 [place] [id number] [place] [address] January, Paresthesia R20.2 [facility], [place] [id number] [place] [address] January, Chest wall pain R07.89 [facility], [place] [id number] [place] [address] Dec, Insomnia G47.00 [facility], [place] [id number] [place] [address] Dec, Chest pain on breathing R07.1 [facility], [place] [id number] [place] [address] Nov, Chest pain on breathing R07.1 [facility], [place] [address] [address] Oct, [facility], [place] [address] [address] Oct, [facility], [place] [address] [address] Oct, Low back pain M54.5 and Chest wall pain R07.89 [facility], [place] [address] [address] Oct, Pleurodynia R07.81 [facility], [place] [address] [address] Sep, Pleurodynia R07.81 and Other nerve root and plexus disorders G54.8 [facility], [place] [id number] [place] [address] Aug, Chronic kidney disease N18.9 ; Encounter for immunization Z23 ; Chest wall pain R07.89 ; Urinary frequency R35.0 and Vertigo R42 [facility], [place] [id number] [place] [address] Aug, [facility], [place] [id number] [place] [address] Jul, [facility], [place] [address] [address] Jul, [facility], [place] [id number] [place] [address] Jun, [facility], [place] [address] [place] [address] Jun, [facility], [place] [address] [id number], [place] [address] May, [facility], [place] [address] [facility] [id number], [place] [address] May, [facility], [place] [address] [facility] [id number], [place] [address] May, [facility], [place] [address] [facility] [id number], [place] [address] May, Coronary atherosclerosis of unspecified type of vessel, kiana or graft 414.00 [facility], [place] [address] [id number], [place] [address] Apr, [facility], [place] [address] [facility] [id number], [place] [address] Apr, [facility], [place] [address] [facility] [id number], [place] [address] Apr, [facility], [place] [id number] [address] Apr, [facility], [place] [id number], [place] [address] Apr, [facility], [place] [id number] [address] Apr, Coronary atherosclerosis of unspecified type of vessel, kiana or graft 414.00 and Left-sided chest wall pain 786.52 [facility], [place] [address] [id number], [place] [address] Mar, [facility], [place] [address] [facility] [id number], [place] [address] Mar, [facility], [place] [address] [facility] [id number], [place] [address] Feb, [facility], [place] [id number] [address] Feb, [facility] [address] [facility] [id number] [place] [address] January, [facility] [address] [facility] [id number] [place] [address] January, [facility] [address] [place] [address] January, [facility] [address] [facility] [id number] [place] [address], [place] [address] January, Neuropathic pain of chest 353.8 [facility] [address] [id number] [place] [address] Dec, [facility] [address] [facility] [id number] [place] [address] Dec, [facility] [id number] [place] [address] Nov, [facility] [address] [facility] [id number] [place] [address] Nov, [facility] [address] [place] [address] Nov, [facility] [address], [place] [address] Nov, [facility] [id number], [place] [address] Nov, [facility] [address] [facility] [id number], [place] [address] Nov, [facility] [address] [facility] [id number], [place] [address] Oct, [facility] [address] [facility] [id number], [place] [address] Oct, [facility] [id number], [place] [address] Oct, [facility] [place] [facility] [address] [id number] [place] [address] Oct, [facility] [place] [facility] [address] [id number] [place] [address] Oct, [facility] [place] [facility] [address] [id number] [place] [address] Oct, [facility] [place] [facility] [address] [id number] [place] [address] Sep, [facility] [place] [facility] [address] [id number] [place] [address] Sep, [facility] [place] [facility] [address] [id number] [place] [address] Sep, [facility] [place] [facility] [address] [id number] [place] [address] Sep, [facility] [place] [facility] [address] [id number] [place] [address] Aug, [facility] [place] [facility] [address] [id number] [place] [address] Aug, [facility] [place] [facility] [address] [id number] [place] [address] Aug, [facility] [place] [facility] [address] [id number] [place] [address] Aug, [facility] [place] [facility] [address] [id number] [place] [address] Aug, [facility] [place] [facility] [address] [id number] [place] [address] Aug, [facility] [place] [facility] [address] [id number] [place] [address] Aug, [facility] [place] [facility] [address] [id number] [place] [address] Aug, [facility] [place] [facility] [address] [id number] [place] [address] Aug, [facility] [place] [facility] [address] [id number] [place] [address] Aug, [facility] [place] [facility] [address] [id number] [place] [address] Jul, [facility] [place] [facility] [address] [id number] [place] [address] Jul, [facility] [place] [facility] [address] [id number] [place] [address] Jul, [facility] [place] [facility] [address] [id number] [place] [address] Jul, [facility] [place] [facility] [address] [id number] [place] [address] Jun, [facility] [place] [facility] [address] [id number] [place] [address] Jun, [facility] [place] [facility] [address] [id number] [place] [address] Jun, [facility] [place] [facility] [address] [id number] [place] [address] Jun, [facility] [place] [facility] [address] [id number] [place] [address] May, [facility] [place] [facility] [address] [id number] [place] [address] May, [facility] [place] [facility] [address] [id number] [place] [address] May, [facility] [place] [facility] [address] [id number] [place] [address] May, [facility] [place] [facility] [address] [id number] [place] [address] Apr, [facility] [place] [facility] [address] [id number] [place] [address] Apr, [facility] [place] [address] [id number] [place] [address] Feb, [facility] [address] [id number] [place] [address] January, [facility] [address] [id number] [place] [address] January, [facility] [address] [id number] [place] [address] January, [facility] [address] [id number] [place] [address] January, [facility] [address] [id number] [place] [address] January, [facility] [address] [id number] [place] [address] January, [facility] [address] [id number] [place] [address] Dec, [facility] [address] [id number] [place] [address] Dec, [facility] [address] [id number] [place] [address] Dec, [facility] [address] [id number] [place] [address] Dec, [facility] [address] [id number] [place] [address] Dec, [facility] [address] [id number] [place] [address] Dec, [facility] [address] [id number] [place] [address] Dec, [facility] [address] [id number] [place] [address] Dec, [facility] [address] [id number] [place] [address] Nov, [facility] [place] [facility] [address] [id number] [place] [address] Nov, [facility] [place] [facility] [address] [id number] [place] [address] Nov, [facility] [place] [facility] [address] [id number] [place] [address] Nov, [facility] [place] [facility] [address] [id number] [place] [address] Nov, [facility] [place] [facility] [address] [id number] [place] [address] Nov, [facility] [place] [facility] [address] [id number] [place] [address] Nov, [facility] [address] [id number] [place] [address] Oct, [facility] [facility] [address] [id number] [place] [address] Oct, [facility] [place] [facility] [address] [id number] [place] [address] Oct, [facility] [place] [facility] [address] [id number] [place] [address] Oct, [facility] [place] [facility] [address] [id number] [place] [address] Sep, [facility] [place] [facility] [address] [id number] [place] [address] Sep, [facility] [facility] [address] [id number] [place] [address] Sep, [facility] [place] [facility] [address] [id number] [place] [address] Sep, [facility] [place] [facility] [address] [id number] [place] [address] Aug, [facility] [place] [facility] [address] [id number] [place] [address] Aug, [facility] [address] [id number] [place] [address] Jul, [facility] [place] [facility] [address] [id number] [place] [address] Jul, [facility] [place] [facility] [address] [id number] [place] [address] Jun, [facility] [place] [address] [id number] [place] [address] Jun, [facility] [place] [facility] [address] [id number] [place] [address] Jun, [facility] [place] [facility] [address] [id number] [place] [address] May, [facility] [place] [facility] [address] [id number] [place] [address] Apr, [facility] [place] [facility] [address] [id number] [place] [address] Apr, [facility] [place] [facility] [address] [id number] [place] [address] Mar, [facility] [place] [facility] [address] [id number] [place] [address] Feb, [facility] [place] [facility] [address] [id number] [place] [address] Feb, [facility] [place] [facility] [address] [id number] [place] [address] January, [facility] [place] [facility] [address] [id number] [place] [address] January, [facility] [place] [facility] [address] [id number] [place] [address] Dec, [facility] [place] [address] [id number] [place] [address] Dec, [facility] [place] [address] [id number] [place] [address] Dec, [facility] [address] [id number] [place] [address] Dec, [facility] [address] [id number] [place] [address] Nov, [facility] [address] [id number] [place] [address] Nov, [facility] [address] [id number] [place] [address] Oct, [facility] [address] [id number] [place] [address] Oct, [facility] [address] [id number] [place] [address] Oct, [facility] [address] [id number] [place] [address] Sep, [facility] [address] [id number] [place] [address] Sep, [facility] [address] [id number] [place] [address] Sep, [facility] [address] [id number] [place] [address] Sep, [facility] [address] [id number], [place] [address] Sep, [facility] [address] [id number] [place] [address] Aug, [facility] [address] [id number] [place] [address] Aug, [facility] [address] [id number] [place] [address] Aug, [facility] [address] [id number], [place] [address] 14 Aug, 2012 [facility] [address] [id number] [place] [address] Jul, [facility] [address] [facility] [id number], [place] [address] Jul, [facility] [id number] [place] [address] Jul, [facility] [address] [facility] [id number] [place] [address] Jul, [facility] [id number] [place] [address], [place] [address] Jun, [facility] [address] [facility] [id number] [place] [address] Jun, [facility] [id number] [place] [address] Jun, [facility] [address] [facility] [id number] [place] [address] Jun, [facility] [address] [id number], [place] [address] Jun, [facility] [address] [id number], [place] [address] 24 May, 2012 [facility] [id number], [place] [address] 13 Sep2011 [facility] [address] [facility] [id number], [place] [address] 12 Sep2011 [facility] [address] [facility] [id number], [place] [address] 11 Sep2011 [facility] [address] [facility] [id number], [place] [address] 10 May, 2012 [facility] [address] [id number], [place] [address] 06 Sep2011 [facility] [address] [id number] [place] [address] May, [facility] [address] [id number] [place] [address] Apr, [facility] [address] [id number] [place] [address] Apr, [facility] [address] [id number] [place] [address] Apr, [facility] [address] [id number] [place] [address] Apr, [facility] [address] [id number] [place] [address] Apr, [facility] [address] [id number] [place] [address] Apr, [facility] [address] [id number] [place] [address] Apr, [facility] [address] [id number] [place] [address] Apr, [facility] [address] [id number] [place] [address] Mar, [facility] [address] [id number] [place] [address] Mar, [facility] [address] [id number] [place] [address] Mar, [facility] [address] [id number] [place] [address] Feb, [facility] [address] [id number] [place] [address] January, [facility] [address] [id number] [place] [address] January, [facility] [address] [id number] [place] [address] January, [facility] [place] [address] [facility] [id number], [place] [address] Dec, [facility] [place] [address] [facility] [id number], [place] [address] Dec, [facility] [place] [address] [facility] [id number], [place] [address] Dec, [facility] [place] [id number], [place] [address] Dec, [facility] [place] [address] [facility] [id number], [place] [address] Dec, [facility] [place] [address] [facility] [id number], [place] [address] Dec, IMMUNIZATIONS No Known Immunizations SOCIAL HISTORY Never Assessed REASON FOR VISIT EMR[place] [place] [place]AN OF CARE VITAL SIGNS MEDICATIONS Unknown [...] 04/02/2012 Surgical History appendectomy age 10 at [facility] Surgical History cholecystectomy-[facility] [facility] 2007 Surgical History coronary artery bypass graft LAD 02/2012 Surgical History heart cath x2 after bypass, pt has 5 stents Hospitalization History Chest pain, dizziness, renal insuff, heat cath showed CAD ([facility]) 01/03/2012 Hospitalization History CABG ([facility]) Dr. Banks 02/2012
--- OUTSIDE RECORDS SUMMARY | 2019-05-03 09:32 | XMS REPORT ---
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 Active 0570850313689 Problem Chronic fatigue R53.82 Active 94833239 Problem Vertigo R42 Active 325241494 Problem Anemia, unspecified type D64.9 Active 694642445 Problem Iron deficiency anemia, unspecified iron deficiency anemia type D50.9 Active 28970850 Problem Mixed hyperlipidemia E78.2 Active 405733407 ALLERGIES No Information ENCOUNTERS Encounter Location Date Diagnosis [place] [id number] [place] [address] January, [place] [id number] [place] [address] Dec, Chest wall pain R07.89 [facility] [id number] [place] [address] Nov, Chest wall pain R07.89 [facility] [id number] [place] [address] Nov, [facility] [id number] [place] [address] Oct, Chest wall pain R07.89 [facility] [id number] [place] [address] Oct, Encounter for immunization Z23 [facility] [id number] [place] [address] Sep, [facility] [address], [place] [address] Sep, Chest wall pain R07.89 [facility] [address], [place] [address] Aug, Chest wall pain R07.89 [facility] [id number] [place] [address] Jul, Chest wall pain R07.89 [facility] [id number] [place] [address] Jun, Chest wall pain R07.89 [facility] [id number] [place] [address] Jun, [facility] [id number] [place] [address] Jun, Encounter for immunization Z23 [facility] [id number] [place] [address] Jun, Chest wall pain R07.89 [facility] [id number] [place] [address] Jun, Encounter for immunization Z23 [facility] [id number] [place] [address] May, [facility] [id number] [place] [address] 11 May, 2018 Medicare annual wellness visit, initial Z00.00 ; Chest wall pain R07.89 ; Mixed hyperlipidemia E78.2 ; 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 pectoris I25.10 ; History of smoking Z87.891 and Chronic kidney disease N18.9 [facility] [id number] [place] [address] May, Chest wall pain R07.89 [facility] [id number] [place] [address] Apr, Chest wall pain R07.89 [facility] [address], [place] [address] Apr, [facility] [id number] [place] [address] Apr, Chest wall pain R07.89 ; Chronic kidney disease N18.9 ; Iron deficiency anemia, unspecified iron deficiency anemia type D50.9 ; Chronic fatigue R53.82 ; 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 pectoris I25.10 and Anemia, unspecified type D64.9 [place] [id number] [place] [address] Apr, Chest wall pain R07.89 [place] [id number] [place] [address] Mar, Chest wall pain R07.89 [place] [id number] [place] [address] Feb, Chest wall pain R07.89 [place] [id number] [place] [address] January, Chest wall pain R07.89 [place] [id number] [place] [address] Dec, Chest wall pain R07.89 ; 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 pectoris I25.10 and Vertigo R42 [place] [address], [place] [address] Dec, Chest wall pain R07.89 [place] [id number] [place] [address] Nov, Chest wall pain R07.89 [place] [id number] [place] [address] Oct, Chest wall pain R07.89 [place] [id number] [place] [address] Sep, Chest wall pain R07.89 and Pleurodynia R07.81 [facility] [id number] [place] [address] Sep, [facility] [id number] [place] [address] Sep, Chest wall pain R07.89 and Sore throat J02.9 [facility] [id number] [place] [address] Sep, [facility] [id number] [place] [address] Sep, Sore throat J02.9 and Acute nasopharyngitis J00 [facility] [id number] [place] [address] Sep, [facility] [id number] [place] [address] Aug, Chest wall pain R07.89 [facility] [id number] [place] [address] Jul, Chest wall pain R07.89 [facility] [id number] [place] [address] Jul, [facility] [id number] [place] [address] Jul, Chest wall pain R07.89 [facility] [id number] [place] [address] 06 Jul, 2017 Chest wall pain R07.89 ; Chronic fatigue R53.82 ; Anemia, unspecified type D64.9 ; Vertigo R42 and 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 pectoris I25.10 [facility] [address] [place] [address] Jun, Chest wall pain R07.89 [facility] [id number] [place] [address] Apr, Chest wall pain R07.89 [facility] [id number] [place] [address] Apr, [facility] [id number] [place] [address] Apr, Dental abscess K04.7 [facility] [id number] [place] [address] Apr, [facility] [id number] [place] [address] Apr, Chest wall pain R07.89 [facility] [id number] [place] [address] Mar, Chest wall pain R07.89 [facility] [id number] [place] [address] Feb, Chest wall pain R07.89 ; Lateral epicondylitis of right elbow M77.11 and Mixed hyperlipidemia E78.2 [facility] [id number] [place] [address] Feb, Chest wall pain R07.89 [facility] [id number] [place] [address] January, [facility] [id number] [place] [address] January, Chest wall pain R07.89 [facility] [id number] [place] [address] Dec, Chest wall pain R07.89 [facility] [id number] [place] [address] Nov, [facility] [id number] [place] [address] Nov, Hypokalemia E87.6 [facility] [id number] [place] [address] Nov, Hypokalemia E87.6 and Iron deficiency anemia, unspecified iron deficiency anemia type D50.9 [facility] [id number] [place] [address] Nov, [facility] [id number] [place] [address] Nov, Nausea R11.0 and Hypovolemia E86.1 [facility] [id number] [place] [address] Nov, [facility] [address] [address] Nov, [facility] [id number] [place] [address] Nov, Chest wall pain R07.89 [facility] [address] [address] Nov, Bronchitis J40 [facility] [id number] [place] [address] Oct, Chest wall pain R07.89 [facility] [id number] [place] [address] Sep, Chest wall pain R07.89 [facility] [id number] [place] [address] Aug, Chest wall pain R07.89 [facility] [id number] [place] [address] Aug, Chest pain on breathing R07.1 [facility] [id number] [place] [address] Jul, [facility] [id number] [place] [address] 07 Jun, 2016 [facility] [id number] [place] [address] May, Chest wall pain R07.89 ; Iron deficiency anemia, unspecified iron deficiency anemia type D50.9 ; Chronic kidney disease N18.9 and Encounter for immunization Z23 [facility] [id number] [place] [address] May, [facility] [id number] [place] [address] Apr, [facility] [address] [address] Mar, [place] [address] [address] Mar, [place] [address] [address] Feb, [place] [address] [address] Feb, Iron deficiency anemia, unspecified iron deficiency anemia type D50.9 [facility] [id number] [place] [address] Feb, Dehydration E86.0 ; Diarrhea, unspecified type R19.7 ; Dizziness R42 and Other specified hypotension I95.89 [place] [id number] [place] [address] Feb, Anemia, unspecified type D64.9 [place] [id number] [place] [address] January, Anemia, unspecified type D64.9 [place] [id number] [place] [address] January, Paresthesia R20.2 [facility] [id number] [place] [address] January, Chest wall pain R07.89 [facility] [id number] [place] [address] Dec, Insomnia G47.00 [facility] [id number] [place] [address] Dec, Chest pain on breathing R07.1 [facility] [id number] [place] [address] Nov, Chest pain on breathing R07.1 [facility] [address] [address] Oct, [facility] [address] [address] Oct, [facility] [address] [address] Oct, Low back pain M54.5 and Chest wall pain R07.89 [facility] [address] [address] Oct, Pleurodynia R07.81 [facility] [address] [address] Sep, Pleurodynia R07.81 and Other nerve root and plexus disorders G54.8 [facility] [id number] [place] [address] Aug, Chronic kidney disease N18.9 ; Encounter for immunization Z23 ; Chest wall pain R07.89 ; Urinary frequency R35.0 and Vertigo R42 [facility] [id number] [place] [address] Aug, [facility] [id number] [place] [address] Jul, [facility] [address] [address] Jul, [facility] [id number] [place] [address] Jun, [facility] [address] [place] [address] Jun, [facility] [address] [id number], [place] [address] May, [facility] [address] [facility] [id number], [place] [address] May, [facility] [address] [facility] [id number], [place] [address] May, [facility] [address] [facility] [id number], [place] [address] May, Coronary atherosclerosis of unspecified type of vessel, rosebud or graft 414.00 [facility] [address] [id number], [place] [address] Apr, [facility] [address] [facility] [id number], [place] [address] Apr, [facility] [address] [facility] [id number], [place] [address] Apr, [facility] [id number], [place] [address] Apr, [facility] [id number], [place] [address] Apr, [facility] [id number], [place] [address] Apr, Coronary atherosclerosis of unspecified type of vessel, rosebud or graft 414.00 and Left-sided chest wall pain 786.52 [facility] [address] [id number], [place] [address] Mar, [facility] [address] [facility] [id number], [place] [address] Mar, [facility] [address] [facility] [id number], [place] [address] Feb, [facility] [address] [id number], [place] [address] Feb, [facility] [address] [facility] [id number] [place] [address] January, [facility] [address] [facility] [id number] [place] [address] January, [facility] [id number] [place] [address] January, [facility] [address] [facility] [id number] [place] [address], [place] [address] January, Neuropathic pain of chest 353.8 [facility] [address] [id number] [place] [address] Dec, [facility] [address] [facility] [id number] [place] [address] Dec, [facility] [id number] [place] [address] Nov, [facility] [address] [facility] [id number] [place] [address] Nov, [facility] [id number] [place] [address] Nov, [facility] [address], [place] [address] Nov, [facility] [id number], [place] [address] Nov, [facility] [address] [facility] [id number], [place] [address] Nov, [facility] [address] [facility] [id number], [place] [address] Oct, [facility] [address] [facility] [id number], [place] [address] Oct, [facility] [address] [id number], [place] [address] Oct, [facility] [place] [facility] [address] [id number] [place] [address] Oct, [facility] [place] [facility] [address] [id number] [place] [address] Oct, [facility] [place] [facility] [address] [id number] [place] [address] Oct, [facility] [place] [facility] [address] [id number] [place] [address] Sep, [facility] [place] [facility] [address] [id number] [place] [address] Sep, [facility] [place] [facility] [address] [id number] [place] [address] Sep, [facility] [place] [facility] [address] [id number] [place] [address] Sep, [facility] [place] [facility] [address] [id number] [place] [address] Aug, [facility] [place] [facility] [address] [id number] [place] [address] Aug, [facility] [place] [facility] [address] [id number] [place] [address] Aug, [facility] [place] [facility] [address] [id number] [place] [address] Aug, [facility] [place] [facility] [address] [id number] [place] [address] Aug, [facility] [place] [facility] [address] [id number] [place] [address] Aug, [facility] [place] [facility] [address] [id number] [place] [address] Aug, [facility] [place] [facility] [address] [id number] [place] [address] Aug, [facility] [place] [facility] [address] [id number] [place] [address] Aug, [facility] [place] [facility] [address] [id number] [place] [address] Aug, [facility] [place] [facility] [address] [id number] [place] [address] Jul, [facility] [place] [facility] [address] [id number] [place] [address] Jul, [facility] [place] [facility] [address] [id number] [place] [address] Jul, [facility] [place] [facility] [address] [id number] [place] [address] Jul, [facility] [place] [facility] [address] [id number] [place] [address] Jun, [facility] [place] [facility] [address] [id number] [place] [address] Jun, [facility] [place] [facility] [address] [id number] [place] [address] Jun, [facility] [place] [facility] [address] [id number] [place] [address] Jun, [facility] [place] [facility] [address] [id number] [place] [address] May, [facility] [place] [facility] [address] [id number] [place] [address] May, [facility] [place] [facility] [address] [id number] [place] [address] May, [facility] [place] [facility] [address] [id number] [place] [address] May, [facility] [place] [facility] [address] [id number] [place] [address] Apr, [facility] [place] [facility] [address] [id number] [place] [address] Apr, [facility] [place] [facility] [address] [id number] [place] [address] Feb, [facility] [address] [id number] [place] [address] January, [facility] [address] [id number] [place] [address] January, [facility] [address] [id number] [place] [address] January, [facility] [address] [id number] [place] [address] January, [facility] [address] [id number] [place] [address] January, [facility] [address] [id number] [place] [address] January, [facility] [address] [id number] [place] [address] Dec, [facility] [address] [id number] [place] [address] Dec, [facility] [address] [id number] [place] [address] Dec, [facility] [address] [id number] [place] [address] Dec[place] [facility] [place] [facility] [address] [id number] [place] [address] Dec, [facility] [place] [facility] [address] [id number] [place] [address] Dec, [facility] [place] [facility] [address] [id number] [place] [address] Dec, [facility] [place] [facility] [address] [id number] [place] [address] Dec, [facility] [place] [facility] [address] [id number] [place] [address] Nov, [facility] [place] [facility] [address] [id number] [place] [address] Nov, [facility] [place] [facility] [address] [id number] [place] [address] Nov, [facility] [place] [facility] [address] [id number] [place] [address] Nov, [facility] [place] [facility] [address] [id number] [place] [address] Nov, [facility] [place] [facility] [address] [id number] [place] [address] Nov, [facility] [place] [facility] [address] [id number] [place] [address] Nov, [facility] [place] [facility] [address] [id number] [place] [address] Oct, [facility] [place] [facility] [address] [id number] [place] [address] Oct, [facility] [place] [facility] [address] [id number] [place] [address] Oct, [facility] [place] [facility] [address] [id number] [place] [address] Oct, [facility] [place] [facility] [address] [id number] [place] [address] Sep, [facility] [place] [facility] [address] [id number] [place] [address] Sep, [facility] [place] [facility] [address] [id number] [place] [address] Sep, [facility] [place] [facility] [address] [id number] [place] [address] Sep, [facility] [place] [facility] [address] [id number] [place] [address] Aug, [facility] [place] [facility] [address] [id number] [place] [address] Aug, [facility] [address] [id number] [place] [address] Jul, [facility] [place] [facility] [address] [id number] [place] [address] Jul, [facility] [place] [facility] [address] [id number] [place] [address] Jun, [facility] [place] [facility] [address] [id number] [place] [address] Jun, [facility] [place] [facility] [address] [id number] [place] [address] Jun, [facility] [place] [facility] [address] [id number] [place] [address] May, [facility] [place] [facility] [address] [id number] [place] [address] Apr, [facility] [place] [facility] [address] [id number] [place] [address] Apr, [facility] [place] [facility] [address] [id number] [place] [address] Mar, [facility] [place] [facility] [address] [id number] [place] [address] Feb, [facility] [place] [facility] [address] [id number] [place] [address] Feb, [facility] [place] [facility] [address] [id number] [place] [address] January, [facility] [place] [facility] [address] [id number] [place] [address] January, [facility] [place] [facility] [address] [id number] [place] [address] Dec, [facility] [place] [facility] [address] [id number] [place] [address] Dec, [facility] [place] [facility] [address] [id number] [place] [address] Dec, [facility] [address] [id number] [place] [address] Dec, [facility] [address] [id number] [place] [address] Nov, [facility] [place] [facility] [address] [id number] [place] [address] Nov, [facility] [address] [id number] [place] [address] Oct, [facility] [place] [facility] [address] [id number] [place] [address] Oct, [facility] [address] [id number] [place] [address] Oct, [facility] [address] [id number] [place] [address] Sep, [facility] [address] [id number] [place] [address] Sep, [facility] [address] [id number] [place] [address] Sep, [facility] [address] [id number] [place] [address] Sep, [facility] [address] [id number], [place] [address] Sep, [facility] [place] [facility] [address] [id number] [place] [address] Aug, [facility] [place] [facility] [address] [id number] [place] [address] Aug, [facility] [place] [facility] [address] [id number] [place] [address] Aug, [facility] [place] [facility] [address] [id number], [place] [address] 14 Aug, 2012 [facility] [place] [facility] [address] [id number] [place] [address] Jul, [facility] [place] [facility] [address] [facility] [id number], [place] [address] Jul, [facility] [place] [facility] [id number] [place] [address] Jul, [facility] [place] [facility] [address] [facility] [id number] [place] [address] Jul, [facility] [place] [facility] [id number] [place] [address], [place] [address] Jun, [facility] [place] [facility] [address] [facility] [id number] [place] [address] Jun, [facility] [place] [facility] [id number] [place] [address] Jun, [facility] [place] [facility] [address] [facility] [id number] [place] [address] Jun, [facility] [place] [facility] [address] [id number], [place] [address] Jun, [facility] [place] [facility] [address] [id number], [place] [address] 24 May, 2012 [facility] [place] [facility] [id number], [place] [address] 13 Sep2011 [facility] [place] [facility] [address] [facility] [id number], [place] [address] 12 Sep2011 [facility] [place] [facility] [address] [facility] [id number], [place] [address] 11 Sep2011 [facility] [place] [facility] [address] [facility] [id number], [place] [address] 10 May, 2012 [facility] [place] [facility] [address] [id number], [place] [address] 06 Sep2011 [facility] [place] [facility] [address] [id number] [place] [address] May, [facility] [place] [facility] [address] [id number] [place] [address] Apr, [facility] [place] [facility] [address] [id number] [place] [address] Apr, [facility] [place] [facility] [address] [id number] [place] [address] Apr, [facility] [place] [facility] [address] [id number] [place] [address] Apr, [facility] [place] [facility] [address] [id number] [place] [address] Apr, [facility] [place] [facility] [address] [id number] [place] [address] Apr, [facility] [place] [facility] [address] [id number] [place] [address] Apr, [facility] [place] [facility] [address] [id number] [place] [address] Apr, [facility] [place] [facility] [address] [id number] [place] [address] Mar, [facility] [place] [facility] [address] [id number] [place] [address] Mar, [facility] [place] [facility] [address] [id number] [place] [address] Mar, [facility] [place] [facility] [address] [id number] [place] [address] Feb, [facility] [place] [facility] [address] [id number] [place] [address] January, [facility] [place] [facility] [address] [id number] [place] [address] January, [facility] [place] [facility] [address] [id number] [place] [address] January, [facility] [address] [facility] [id number], [place] [address] Dec, [facility] [address] [facility] [id number], [place] [address] Dec, [facility] [address] [facility] [id number], [place] [address] Dec, [facility] [id number], [place] [address] Dec, [facility] [address] [facility] [id number], [place] [address] Dec, [facility] [address] [facility] [id number], [place] [address] Dec, IMMUNIZATIONS No Known Immunizations SOCIAL HISTORY Never Assessed REASON FOR VISIT EMR-[facility] PLAN OF CARE VITAL SIGNS MEDICATIONS Unknown [...] 04/02/2012 Surgical History appendectomy age 10 at [facility] Surgical History cholecystectomy-[facility] 2007 Surgical History coronary artery bypass graft LAD 02/2012 Surgical History heart cath x2 after bypass, pt has 5 stents Hospitalization History Chest pain, dizziness, renal insuff, heat cath showed CAD ([facility]) 01/03/2012 Hospitalization History CABG ([facility]) Dr. Banks 02/2012
--- OUTSIDE RECORDS SUMMARY | 2019-05-03 09:33 | XMS REPORT ---
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 Active 5224822124993 Problem Chronic fatigue R53.82 Active 25555313 Problem Vertigo R42 Active 322901801 Problem Anemia, unspecified type D64.9 Active 565243205 Problem Iron deficiency anemia, unspecified iron deficiency anemia type D50.9 Active 78836809 Problem Mixed hyperlipidemia E78.2 Active 912546576 ALLERGIES No Information ENCOUNTERS Encounter Location Date Diagnosis [facility] [id number] [place] [address] January, [place] [id number] [place] [address] Dec, [facility] [id number] [place] [address] Nov, Chest wall pain R07.89 [facility] [id number] [place] [address] Nov, [facility] [id number] [place] [address] Oct, Chest wall pain R07.89 [facility] [id number] [place] [address] Oct, Encounter for immunization Z23 [facility] [id number] [place] [address] Sep, [facility] [address] [address] Sep, Chest wall pain R07.89 [facility] [address] [address] Aug, Chest wall pain R07.89 [facility] [id number] [place] [address] Jul, Chest wall pain R07.89 [facility] [id number] [place] [address] Jun, Chest wall pain R07.89 [facility] [id number] [place] [address] Jun, [facility] [id number] [place] [address] Jun, Encounter for immunization Z23 [facility] [id number] [place] [address] Jun, Chest wall pain R07.89 [facility] [id number] [place] [address] Jun, Encounter for immunization Z23 [facility] [id number] [place] [address] May, [facility] [id number] [place] [address] 11 May, 2018 Medicare annual wellness visit, initial Z00.00 ; Chest wall pain R07.89 ; Mixed hyperlipidemia E78.2 ; Coronary artery disease 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 angina pectoris I25.10 ; History of smoking Z87.891 and Chronic kidney disease N18.9 [facility] [id number] [place] [address] May, Chest wall pain R07.89 [facility] [id number] [place] [address] Apr, Chest wall pain R07.89 [facility] [address] [address] Apr, [facility] [id number] [place] [address] Apr, Chest wall pain R07.89 ; Chronic kidney disease N18.9 ; Iron deficiency anemia, unspecified iron deficiency anemia type D50.9 ; Chronic fatigue R53.82 ; Coronary artery disease 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 angina pectoris I25.10 and Anemia, unspecified type D64.9 [facility] [id number] [address] Apr, Chest wall pain R07.89 [place] [id number] [place] [address] Mar, Chest wall pain R07.89 [place] [id number] [place] [address] Feb, Chest wall pain R07.89 [place] [id number] [place] [address] January, Chest wall pain R07.89 [place] [id number] [place] [address] Dec, Chest wall pain R07.89 ; Coronary artery disease 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 angina pectoris I25.10 and Vertigo R42 [place] [address] [address] Dec, Chest wall pain R07.89 [place] [id number] [place] [address] Nov, Chest wall pain R07.89 [facility] [id number] [place] [address] Oct, Chest wall pain R07.89 [place] [id number] [place] [address] Sep, Chest wall pain R07.89 and Pleurodynia R07.81 [facility] [id number] [place] [address] Sep, [facility] [id number] [place] [address] Sep, Chest wall pain R07.89 and Sore throat J02.9 [facility] [address] [address] Sep, [facility] [id number] [place] [address] Sep, Sore throat J02.9 and Acute nasopharyngitis J00 [facility] [id number] [place] [address] Sep, [facility] [address] [address] Aug, Chest wall pain R07.89 [facility] [id number] [place] [address] Jul, Chest wall pain R07.89 [facility] [id number] [place] [address] Jul, [facility] [id number] [place] [address] Jul, Chest wall pain R07.89 [facility] [id number] [place] [address] 06 Jul, 2017 Chest wall pain R07.89 ; Chronic fatigue R53.82 ; Anemia, unspecified type D64.9 ; Vertigo R42 and Coronary artery disease 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 angina pectoris I25.10 [facility] [id number] [place] [address] Jun, Chest wall pain R07.89 [facility] [id number] [place] [address] Apr, Chest wall pain R07.89 [facility] [id number] [place] [address] Apr, [facility] [id number] [place] [address] Apr, Dental abscess K04.7 [facility] [id number] [place] [address] Apr, [facility] [id number] [place] [address] Apr, Chest wall pain R07.89 [facility] [id number] [place] [address] Mar, Chest wall pain R07.89 [facility] [id number] [place] [address] Feb, Chest wall pain R07.89 ; Lateral epicondylitis of right elbow M77.11 and Mixed hyperlipidemia E78.2 [facility] [address] [place] [address] Feb, Chest wall pain R07.89 [facility] [id number] [place] [address] January, [facility] [id number] [place] [address] January, Chest wall pain R07.89 [facility] [id number] [place] [address] Dec, Chest wall pain R07.89 [facility] [id number] [place] [address] Nov, [facility] [id number] [place] [address] Nov, Hypokalemia E87.6 [facility] [id number] [place] [address] Nov, Hypokalemia E87.6 and Iron deficiency anemia, unspecified iron deficiency anemia type D50.9 [facility] [id number] [place] [address] Nov, [facility] [id number] [place] [address] Nov, Nausea R11.0 and Hypovolemia E86.1 [facility] [id number] [place] [address] Nov, [facility] [id number] [place] [address] Nov, [facility] [id number] [place] [address] Nov, Chest wall pain R07.89 [facility] [id number] [place] [address] Nov, Bronchitis J40 [facility] [id number] [place] [address] Oct, Chest wall pain R07.89 [facility] [id number] [place] [address] Sep, Chest wall pain R07.89 [facility] [id number] [place] [address] Aug, Chest wall pain R07.89 [facility] [id number] [place] [address] Aug, Chest pain on breathing R07.1 [facility] [id number] [place] [address] Jul, [facility] [id number] [place] [address] 07 Jun, 2016 [facility] [id number] [place] [address] May, Chest wall pain R07.89 ; Iron deficiency anemia, unspecified iron deficiency anemia type D50.9 ; Chronic kidney disease N18.9 and Encounter for immunization Z23 [facility] [id number] [place] [address] May, [facility] [id number] [place] [address] Apr, [facility] [address] [address] Mar, [facility] [address] [address] Mar, [place] [address] [address] Feb, [place] [id number] [place] [address] Feb, Iron deficiency anemia, unspecified iron deficiency anemia type D50.9 [facility] [id number] [place] [address] Feb, Dehydration E86.0 ; Diarrhea, unspecified type R19.7 ; Dizziness R42 and Other specified hypotension I95.89 [place] [id number] [place] [address] Feb, Anemia, unspecified type D64.9 [place] [id number] [place] [address] January, Anemia, unspecified type D64.9 [place] [id number] [place] [address] January, Paresthesia R20.2 [place] [id number] [place] [address] January, Chest wall pain R07.89 [facility] [id number] [place] [address] 20 Apr, 2016 Insomnia G47.00 [facility] [id number] [place] [address] Dec, Chest pain on breathing R07.1 [facility] [address] [address] Nov, Chest pain on breathing R07.1 [facility] [id number] [place] [address] Oct, [facility] [address] [address] Oct, [facility] [address] [address] Oct, Low back pain M54.5 and Chest wall pain R07.89 [facility] [address] [address] Oct, Pleurodynia R07.81 [facility] [address] [address] Sep, Pleurodynia R07.81 and Other nerve root and plexus disorders G54.8 [facility] [address] [address] Aug, Chronic kidney disease N18.9 ; Encounter for immunization Z23 ; Chest wall pain R07.89 ; Urinary frequency R35.0 and Vertigo R42 [facility] [id number] [place] [address] Aug, [facility] [id number] [place] [address] Jul, [facility] [address] [address] Jul, [facility] [id number] [place] [address] Jun, [facility] [address] [address] Jun, [facility] [address] [id number] [address] May, [facility] [address] [id number] [address] May, [facility] [address] [id number], [place] [address] May, [facility] [address] [id number] [address] May, Coronary atherosclerosis of unspecified type of vessel, wilton or graft 414.00 [facility] [address] [id number], [place] [address] Apr, [facility] [address] [id number] [address] Apr, [facility] [address] [id number], [place] [address] Apr, [facility] [address] [id number], [place] [address] Apr, [facility] [address] [id number], [place] [address] Apr, [facility] [address] [facility] [id number], [place] [address] Apr, Coronary atherosclerosis of unspecified type of vessel, wilton or graft 414.00 and Left-sided chest wall pain 786.52 [facility] [address] [id number], [place] [address] Mar, [facility] [address] [id number], [place] [address] Mar, [facility] [address] [facility] [id number], [place] [address] Feb, [facility] [address] [id number], [place] [address] Feb, [facility] [address] [id number] [place] [address] January, [facility] [address] [id number] [place] [address] January, [facility] [address] [id number] [place] [address] January, [facility] [address] [facility] [id number] [place] [address] January, Neuropathic pain of chest 353.8 [facility] [address] [id number] [place] [address] Dec, [facility] [address] [facility] [id number] [place] [address] Dec, [facility] [address] [facility] [id number] [place] [address] Nov, [facility] [address] [id number], [place] [address] Nov, [facility] [address] [id number] [place] [address] Nov, [facility] [address] [facility] [id number], [place] [address] Nov, [facility] [address] [facility] [id number], [place] [address] Nov, [facility] [place] [facility] [address] [id number], [place] [address] Nov, [facility] [place] [facility] [address] [id number] [place] [address] Oct, [facility] [place] [facility] [address] [facility] [id number], [place] [address] Oct, [facility] [place] [facility] [address] [facility] [id number] [place] [address] Oct, [facility] [place] [facility] [address] [id number] [place] [address] Oct, [facility] [address] [id number] [place] [address] Oct, [facility] [place] [facility] [address] [id number] [place] [address] Oct, [facility] [place] [facility] [address] [id number] [place] [address] Sep, [facility] [place] [facility] [address] [id number] [place] [address] Sep, [facility] [place] [facility] [address] [id number] [place] [address] Sep, [facility] [place] [facility] [address] [id number] [place] [address] Sep, [facility] [address] [id number] [place] [address] Aug, [facility] [address] [id number] [place] [address] Aug, [facility] [place] [facility] [address] [id number] [place] [address] Aug, [facility] [place] [facility] [address] [id number] [place] [address] Aug, [facility] [place] [facility] [address] [id number] [place] [address] Aug, [facility] [place] [facility] [address] [id number] [place] [address] Aug, [facility] [place] [facility] [address] [id number] [place] [address] Aug, [facility] [place] [facility] [address] [id number] [place] [address] Aug, [facility] [place] [facility] [address] [id number] [place] [address] Aug, [facility] [place] [facility] [address] [id number] [place] [address] Aug, [facility] [place] [facility] [address] [id number] [place] [address] Jul, [facility] [place] [facility] [address] [id number] [place] [address] Jul, [facility] [place] [facility] [address] [id number] [place] [address] Jul, [facility] [place] [facility] [address] [id number] [place] [address] Jul, [facility] [place] [facility] [address] [id number] [place] [address] Jun, [facility] [place] [facility] [address] [id number] [place] [address] Jun, [facility] [place] [facility] [address] [id number] [place] [address] Jun, [facility] [place] [facility] [address] [id number] [place] [address] Jun, [facility] [place] [facility] [address] [id number] [place] [address] May, [facility] [place] [facility] [address] [id number] [place] [address] May, [facility] [place] [facility] [address] [id number], [place] [address] May, [facility] [place] [facility] [address] [id number] [place] [address] May, [facility] [place] [facility] [address] [id number] [place] [address] Apr, [facility] [place] [facility] [address] [id number] [place] [address] Apr, [facility] [place] [facility] [address] [id number] [place] [address] Feb, [facility] [place] [facility] [address] [id number] [place] [address] January, [facility] [place] [facility] [address] [id number] [place] [address] January, [facility] [place] [facility] [address] [id number] [place] [address] January, [facility] [place] [facility] [address] [id number] [place] [address] January, [facility] [place] [facility] [address] [id number] [place] [address] January, [facility] [place] [facility] [address] [id number] [place] [address] January, [facility] [place] [facility] [address] [id number] [place] [address] Dec, [facility] [place] [facility] [address] [id number] [place] [address] Dec, [facility] [place] [facility] [address] [id number] [place] [address] Dec, [facility] [place] [facility] [address] [id number] [place] [address] Dec, [facility] [place] [facility] [address] [id number] [place] [address] Dec, [facility] [place] [facility] [address] [id number] [place] [address] Dec, [facility] [place] [facility] [address] [id number] [place] [address] Dec, [facility] [place] [facility] [address] [id number] [place] [address] Dec, [facility] [place] [facility] [address] [id number] [place] [address] Nov, [facility] [place] [facility] [address] [id number] [place] [address] Nov, [facility] [place] [facility] [address] [id number] [place] [address] Nov, [facility] [place] [facility] [address] [id number] [place] [address] Nov, [facility] [place] [facility] [address] [id number] [place] [address] Nov, [facility] [place] [facility] [address] [id number] [place] [address] Nov, [facility] [place] [facility] [address] [id number] [place] [address] Nov, [facility] [place] [facility] [address] [id number] [place] [address] Oct, [facility] [place] [facility] [address] [id number] [place] [address] Oct, [facility] [place] [facility] [address] [id number] [place] [address] Oct, [facility] [place] [facility] [address] [id number] [place] [address] Oct, [facility] [place] [facility] [address] [id number] [place] [address] Sep, [facility] [place] [facility] [address] [id number] [place] [address] Sep, [facility] [place] [facility] [address] [id number] [place] [address] Sep, [facility] [place] [facility] [address] [id number] [place] [address] Sep, [facility] [place] [facility] [address] [id number] [place] [address] Aug, [facility] [place] [facility] [address] [id number], [place] [address] Aug, [facility] [place] [facility] [address] [id number] [place] [address] Jul, [facility] [place] [facility] [address] [id number] [place] [address] Jul, [facility] [place] [facility] [address] [id number] [place] [address] Jun, [facility] [place] [facility] [address] [id number] [place] [address] Jun, [facility] [place] [facility] [address] [id number] [place] [address] Jun, [facility] [place] [facility] [address] [id number] [place] [address] May, [facility] [place] [facility] [address] [id number] [place] [address] Apr, [facility] [place] [facility] [address] [id number] [place] [address] Apr, [facility] [place] [facility] [address] [id number] [place] [address] Mar, [facility] [place] [facility] [address] [id number] [place] [address] Feb, [facility] [place] [facility] [address] [id number], [place] [address] Feb, [facility] [place] [facility] [address] [id number], [place] [address] January, [facility] [place] [facility] [address] [id number] [place] [address] January, [facility] [place] [facility] [address] [id number] [place] [address] Dec, [facility] [place] [facility] [address] [id number] [place] [address] Dec, [facility] [place] [facility] [address] [id number] [place] [address] Dec, [facility] [address] [id number] [place] [address] Dec, [facility] [place] [facility] [address] [id number] [place] [address] Nov, [facility] [address] [address] [id number] [place] [address] Nov, [facility] [place] [facility] [address] [id number] [place] [address] Oct, [facility] [address] [id number] [place] [address] Oct, [facility] [address] [id number] [place] [address] Oct, [facility] [address] [id number] [place] [address] Sep, [facility] [address] [id number] [place] [address], [facility] [address] [id number] [place] [address] Sep, [facility] [address] [id number] [place] [address] Sep, [facility] [address] [id number] [place] [address] Sep, [facility] [address] [id number] [place] [address] Aug, [facility] [place] [facility] [address] [id number] [place] [address] Aug, [facility] [place] [facility] [address] [id number] [place] [address] 14 Aug, 2012 [facility] [place] [facility] [address] [id number] [place] [address] Aug, [facility] [place] [facility] [address] [id number] [place] [address] Jul, [facility] [place] [facility] [address] [id number] [place] [address] Jul, [facility] [place] [facility] [address] [facility] [id number] [place] [address] Jul, [facility] [place] [facility] [address] [id number] [place] [address] Jul, [facility] [place] [facility] [address] [id number] [place] [address] Jun, [facility] [place] [facility] [address] [id number] [place] [address] Jun, [facility] [place] [facility] [address] [facility] [id number] [place] [address] Jun, [facility] [place] [facility] [address] [id number], [place] [address] Jun, [facility] [place] [facility] [address] [id number], [place] [address] Jun, [facility] [place] [facility] [address] [facility] [id number][place] [address] 24 May, 2012 [facility] [place] [facility] [address] [id number], [place] [address] 13 May, 2012 [facility] [place] [facility] [address] [id number], [place] [address] 12 Sep2011 [facility] [place] [facility] [address] [id number], [place] [address] 11 May, 2012 [facility] [place] [facility] [address] [facility] [id number], [place] [address] 10 May, 2012 [facility] [place] [facility] [address] [facility] [id number], [place] [address] 06 May, 2012 [facility] [place] [facility] [address] [id number] [place] [address] May, [facility] [place] [facility] [address] [id number] [place] [address] Apr, [facility] [place] [facility] [address] [id number] [place] [address] Apr, [facility] [place] [facility] [address] [id number] [place] [address] Apr, [facility] [place] [facility] [address] [id number] [place] [address] Apr, [facility] [place] [facility] [address] [id number] [place] [address] Apr, [facility] [place] [facility] [address] [id number] [place] [address] Apr, [facility] [place] [facility] [address] [id number] [place] [address] Apr, [facility] [place] [facility] [address] [id number] [place] [address] Apr, [facility] [place] [facility] [address] [id number] [place] [address] Mar, [facility] [place] [facility] [address] [id number] [place] [address] Mar, [facility] [place] [facility] [address] [id number] [place] [address] Mar, [facility] [place] [facility] [address] [id number] [place] [address] Feb, [facility] [place] [facility] [address] [id number] [place] [address] January, [facility] [place] [facility] [address] [id number] [place] [address] January, [facility] [place] [facility] [address] [id number] [place] [address] January, [facility] [address] [facility] [id number], [place] [address] Dec, [facility] [address] [facility] [id number], [place] [address] Dec, [facility] [address] [id number], [place] [address] Dec, [facility] [id number], [place] [address] Dec, [facility] [address] [facility] [id number], [place] [address] Dec, [facility] [address] [facility] [id number], [place] [address] Dec, IMMUNIZATIONS No Known Immunizations SOCIAL HISTORY Never Assessed REAS[place] FOR V[place] [place] [...] 04/02/2012 Surgical History appendectomy age 10 at [facility] Surgical History cholecystectomy-[facility] [facility] 2007 Surgical History coronary artery bypass graft LAD 02/2012 Surgical History heart cath x2 after bypass, pt has 5 stents Hospitalization History Chest pain, dizziness, renal insuff, heat cath showed CAD ([facility]) 01/03/2012 Hospitalization History CABG ([facility]) Dr. Banks 02/2012
--- OUTSIDE RECORDS SUMMARY | 2019-05-03 09:33 | XMS REPORT ---
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 Active 2001442401809 Problem Chronic fatigue R53.82 Active 70552645 Problem Vertigo R42 Active 036599492 Problem Anemia, unspecified type D64.9 Active 963824569 Problem Iron deficiency anemia, unspecified iron deficiency anemia type D50.9 Active 93548967 Problem Mixed hyperlipidemia E78.2 Active 467297014 ALLERGIES No Information ENCOUNTERS Encounter Location Date Diagnosis [place] [id number] [place] [address] Dec, [place] [id number] [place] [address] Nov, Chest wall pain R07.89 [facility] [id number] [place] [address] Nov, [facility] [id number] [place] [address] Oct, Chest wall pain R07.89 [facility] [id number] [place] [address] Oct, Encounter for immunization Z23 [facility] [id number] [place] [address] Sep, [facility] [address] [address] Sep, Chest wall pain R07.89 [facility] [address] [address] Aug, Chest wall pain R07.89 [facility] [address] [address] Jul, Chest wall pain R07.89 [facility] [id number] [place] [address] Jun, Chest wall pain R07.89 [facility] [address] [address] Jun, [facility] [id number] [place] [address] Jun, Encounter for immunization Z23 [facility] [id number] [place] [address] Jun, Chest wall pain R07.89 [facility] [id number] [place] [address] Jun, Encounter for immunization Z23 [facility] [id number] [place] [address] May, [facility] [address] [address] May, Medicare annual wellness visit, initial Z00.00 ; Chest wall pain R07.89 ; Mixed hyperlipidemia E78.2 ; Coronary artery disease involving miami coronary artery of miami heart without angina pectoris I25.10 ; History of smoking Z87.891 and Chronic kidney disease N18.9 [facility] [address] [address] May, Chest wall pain R07.89 [facility] [address] [address] Apr, Chest wall pain R07.89 [facility] [id number] [place] [address] Apr, [facility] [id number] [place] [address] Apr, Chest wall pain R07.89 ; Chronic kidney disease N18.9 ; Iron deficiency anemia, unspecified iron deficiency anemia type D50.9 ; Chronic fatigue R53.82 ; Coronary artery disease involving miami coronary artery of miami heart without angina pectoris I25.10 and Anemia, unspecified type D64.9 [place] [id number] [place] [address] Apr, Chest wall pain R07.89 [place] [id number] [place] [address] Mar, Chest wall pain R07.89 [place] [id number] [place] [address] Feb, Chest wall pain R07.89 [place] [id number] [place] [address] January, Chest wall pain R07.89 [place] [id number] [place] [address] Dec, Chest wall pain R07.89 ; Coronary artery disease involving miami coronary artery of miami heart without angina pectoris I25.10 and Vertigo R42 [place] [id number] [place] [address] Dec, Chest wall pain R07.89 [place] [id number] [place] [address] Nov, Chest wall pain R07.89 [place] [id number] [place] [address] Oct, Chest wall pain R07.89 [place] [id number] [place] [address] Sep, Chest wall pain R07.89 and Pleurodynia R07.81 [place] [id number] [place] [address] Sep, [facility] [id number] [place] [address] Sep, Chest wall pain R07.89 and Sore throat J02.9 [facility] [id number] [place] [address] Sep, [facility] [id number] [place] [address] Sep, Sore throat J02.9 and Acute nasopharyngitis J00 [facility] [id number] [place] [address] Sep, [facility] [id number] [place] [address] Aug, Chest wall pain R07.89 [facility] [id number] [place] [address] Jul, Chest wall pain R07.89 [facility] [id number] [place] [address] Jul, [facility] [id number] [place] [address] Jul, Chest wall pain R07.89 [facility] [id number] [place] [address] Jul, Chest wall pain R07.89 ; Chronic fatigue R53.82 ; Anemia, unspecified type D64.9 ; Vertigo R42 and Coronary artery disease involving miami coronary artery of miami heart without angina pectoris I25.10 [facility] [id number] [place] [address] Jun, Chest wall pain R07.89 [facility] [id number] [place] [address] Apr, Chest wall pain R07.89 [facility] [address] [address] Apr, [facility] [id number] [place] [address] Apr, Dental abscess K04.7 [facility] [id number] [place] [address] Apr, [facility] [id number] [place] [address] Apr, Chest wall pain R07.89 [facility] [id number] [place] [address] Mar, Chest wall pain R07.89 [facility] [id number] [place] [address] Feb, Chest wall pain R07.89 ; Lateral epicondylitis of right elbow M77.11 and Mixed hyperlipidemia E78.2 [facility] [id number] [place] [address] Feb, Chest wall pain R07.89 [facility] [id number] [place] [address] January, [facility] [id number] [place] [address] January, Chest wall pain R07.89 [facility] [id number] [place] [address] Dec, Chest wall pain R07.89 [facility] [id number] [place] [address] Nov, [facility] [id number] [place] [address] Nov, Hypokalemia E87.6 [facility] [id number] [place] [address] Nov, Hypokalemia E87.6 and Iron deficiency anemia, unspecified iron deficiency anemia type D50.9 [facility] [address] [address] Nov, [facility] [id number] [place] [address] Nov, Nausea R11.0 and Hypovolemia E86.1 [facility] [id number] [place] [address] Nov, [facility] [id number] [place] [address] 13 Nov, 2016 [facility] [id number] [place] [address] Nov, Chest wall pain R07.89 [facility] [id number] [place] [address] Nov, Bronchitis J40 [facility] [address] [address] 09 Oct, 2016 Chest wall pain R07.89 [facility] [id number] [place] [address] Sep, Chest wall pain R07.89 [facility] [id number] [place] [address] 16 Aug, 2016 Chest wall pain R07.89 [facility] [id number] [place] [address] Aug, Chest pain on breathing R07.1 [facility] [id number] [place] [address] 10 Jul, 2016 [facility] [id number] [place] [address] 07 Jun, 2016 [facility] [id number] [place] [address] 16 May, 2016 Chest wall pain R07.89 ; Iron deficiency anemia, unspecified iron deficiency anemia type D50.9 ; Chronic kidney disease N18.9 and Encounter for immunization Z23 [facility] [id number] [place] [address] May, [facility] [address] [address] Apr, [facility] [address] [address] Mar, [facility] [address] [address] Mar, [facility] [address] [address] Feb, [place] [address] [address] Feb, Iron deficiency anemia, unspecified iron deficiency anemia type D50.9 [facility] [address] [address] Feb, Dehydration E86.0 ; Diarrhea, unspecified type R19.7 ; Dizziness R42 and Other specified hypotension I95.89 [place] [id number] [place] [address] Feb, Anemia, unspecified type D64.9 [place] [id number] [place] [address] January, Anemia, unspecified type D64.9 [place] [id number] [place] [address] January, Paresthesia R20.2 [place] [id number] [place] [address] January, Chest wall pain R07.89 [facility] [address] [address] Dec, Insomnia G47.00 [place] [address] [address] Dec, Chest pain on breathing R07.1 [facility] [id number] [place] [address] Nov, Chest pain on breathing R07.1 [facility] [id number] [place] [address] Oct, [facility] [id number] [place] [address] Oct, [facility] [id number] [place] [address] Oct, Low back pain M54.5 and Chest wall pain R07.89 [facility] [address] [address] Oct, Pleurodynia R07.81 [facility] [id number] [place] [address] Sep, Pleurodynia R07.81 and Other nerve root and plexus disorders G54.8 [facility] [id number] [place] [address] Aug, Chronic kidney disease N18.9 ; Encounter for immunization Z23 ; Chest wall pain R07.89 ; Urinary frequency R35.0 and Vertigo R42 [facility] [id number] [place] [address] Aug, [facility] [id number] [place] [address] Jul, [facility] [id number] [place] [address] Jul, [facility] [address] [address] Jun, [facility] [id number] [place] [address] Jun, [facility] [address] [address] May, [facility] [address] [id number] [address] May, [facility] [address] [id number] [place] [address] May, [facility] [address] [id number] [place] [address] May, Coronary atherosclerosis of unspecified type of vessel, miami or graft 414.00 [facility] [address] [id number] [place] [address] Apr, [facility] [address] [id number] [place] [address] Apr, [facility] [address] [id number] [place] [address] Apr, [facility] [address] [id number] [place] [address] Apr, [facility] [address] [id number] [place] [address] Apr, [facility] [address] [id number] [place] [address] Apr, Coronary atherosclerosis of unspecified type of vessel, miami or graft 414.00 and Left-sided chest wall pain 786.52 [facility] [address] [id number] [place] [address] Mar, [facility] [address] [id number] [place] [address] Mar, [facility] [address] [id number] [place] [address] Feb, [facility] [address] [id number] [place] [address] Feb, [facility] [address] [id number] [place] [address] January, [facility] [place] [facility] [address] [id number] [place] [address] January, [facility] [address] [id number] [place] [address] January, [facility] [place] [facility] [address] [id number] [place] [address] January, Neuropathic pain of chest 353.8 [facility] [place] [facility] [address] [id number] [place] [address] Dec, [facility] [place] [facility] [address] [id number] [place] [address] Dec, [facility] [place] [facility] [address] [id number] [place] [address] Nov, [facility] [place] [facility] [address] [id number] [place] [address] Nov, [facility] [place] [facility] [address] [id number] [place] [address] Nov, [facility] [place] [facility] [address] [id number] [place] [address] Nov, [facility] [place] [facility] [address] [facility] [id number] [place] [address] Nov, [facility] [place] [facility] [address] [id number] [place] [address] Nov, [facility] [place] [facility] [address] [id number] [place] [address] Oct, [facility] [place] [facility] [address] [id number] [place] [address] Oct, [facility] [place] [facility] [address] [facility] [id number] [place] [address] Oct, [facility] [place] [facility] [address] [facility] [id number] [place] [address] Oct, [facility] [place] [facility] [address] [id number] [place] [address] Oct, [facility] [address] [id number] [place] [address] Oct, [facility] [place] [facility] [address] [id number] [place] [address] Sep, [facility] [address] [id number] [place] [address] Sep, [facility] [place] [facility] [address] [id number] [place] [address] Sep, [facility] [address] [id number] [place] [address] Sep, [facility] [address] [id number] [place] [address] Aug, [facility] [place] [facility] [address] [id number] [place] [address] Aug, [facility] [address] [id number] [place] [address] Aug, [facility] [address] [id number] [place] [address] Aug, [facility] [address] [id number] [place] [address] Aug, [facility] [place] [facility] [address] [id number] [place] [address] Aug, [facility] [place] [facility] [address] [id number] [place] [address] Aug, [facility] [place] [facility] [address] [id number] [place] [address] Aug, [facility] [place] [facility] [address] [id number] [place] [address] Aug, [facility] [place] [facility] [address] [id number] [place] [address] Aug, [facility] [place] [facility] [address] [id number] [place] [address] Jul, [facility] [place] [facility] [address] [id number] [place] [address] Jul, [facility] [place] [facility] [address] [id number] [place] [address] Jul, [facility] [place] [facility] [address] [id number] [place] [address] Jul, [facility] [place] [facility] [address] [id number] [place] [address] Jun, [facility] [place] [facility] [address] [id number] [place] [address] Jun, [facility] [place] [facility] [address] [id number] [place] [address] Jun, [facility] [place] [facility] [address] [id number] [place] [address] Jun, [facility] [place] [facility] [address] [id number] [place] [address] May, [facility] [place] [facility] [address] [id number] [place] [address] May, [facility] [place] [facility] [address] [id number] [place] [address] May, [facility] [place] [facility] [address] [id number] [place] [address] May, [facility] [place] [facility] [address] [id number] [place] [address] Apr, [facility] [place] [facility] [address] [id number] [place] [address] Apr, [facility] [place] [facility] [address] [id number] [place] [address] Feb, [facility] [place] [facility] [address] [id number] [place] [address] January, [facility] [place] [facility] [address] [id number] [place] [address] January, [facility] [place] [facility] [address] [id number] [place] [address] January, [facility] [place] [facility] [address] [id number] [place] [address] January, [facility] [place] [facility] [address] [id number] [place] [address] January, [facility] [place] [facility] [address] [id number] [place] [address] January, [facility] [place] [facility] [address] [id number] [place] [address] Dec, [facility] [place] [facility] [address] [id number] [place] [address] Dec, [facility] [place] [facility] [address] [id number] [place] [address] Dec, [facility] [place] [facility] [address] [id number] [place] [address] Dec, [facility] [place] [facility] [address] [id number] [place] [address] Dec, [facility] [place] [facility] [address] [id number] [place] [address] Dec, [facility] [place] [facility] [address] [id number] [place] [address] Dec, [facility] [place] [facility] [address] [id number] [place] [address] Dec, [facility] [place] [facility] [address] [id number] [place] [address] Nov, [facility] [place] [facility] [address] [id number] [place] [address] Nov, [facility] [place] [facility] [address] [id number] [place] [address] Nov, [facility] [place] [facility] [address] [id number] [place] [address] Nov, [facility] [place] [facility] [address] [id number] [place] [address] Nov, [facility] [place] [facility] [address] [id number] [place] [address] Nov, [facility] [place] [facility] [address] [id number] [place] [address] Nov, [facility] [place] [facility] [address] [id number] [place] [address] Oct, [facility] [place] [facility] [address] [id number] [place] [address] Oct, [facility] [place] [facility] [address] [id number] [place] [address] Oct, [facility] [place] [facility] [address] [id number] [place] [address] Oct, [facility] [place] [facility] [address] [id number] [place] [address] Sep, [facility] [place] [facility] [address] [id number] [place] [address] Sep, [facility] [place] [facility] [address] [id number] [place] [address] Sep, [facility] [place] [facility] [address] [id number] [place] [address] Sep, [facility] [place] [facility] [address] [id number] [place] [address] Aug, [facility] [place] [facility] [address] [id number] [place] [address] Aug, [facility] [place] [facility] [address] [id number] [place] [address] Jul, [facility] [address] [id number] [place] [address] Jul, [facility] [place] [facility] [address] [id number] [place] [address] Jun, [facility] [place] [facility] [address] [id number] [place] [address] Jun, [facility] [place] [facility] [address] [id number] [place] [address] Jun, [facility] [place] [facility] [address] [id number] [place] [address] May, [facility] [place] [facility] [address] [id number] [place] [address] Apr, [facility] [place] [facility] [address] [id number] [place] [address] Apr, [facility] [place] [facility] [address] [id number] [place] [address] Mar, [facility] [place] [facility] [address] [id number] [place] [address] Feb, [facility] [place] [facility] [address] [id number] [place] [address] Feb, [facility] [place] [facility] [address] [id number] [place] [address] January, [facility] [place] [facility] [address] [id number] [place] [address] January, [facility] [place] [facility] [address] [id number] [place] [address] Dec, [facility] [place] [facility] [address] [id number] [place] [address] Dec, [facility] [place] [facility] [address] [id number] [place] [address] Dec, [facility] [place] [facility] [address] [id number] [place] [address] 05 Dec, 2012 [facility] [address] [id number] [place] [address] Nov, [facility] [facility] [address] [id number] [place] [address] Nov, [facility] [address] [id number] [place] [address] Oct, [facility] [place] [facility] [address] [id number] [place] [address] Oct, [facility] [address] [id number] [place] [address] Oct, [facility] [address] [id number] [place] [address] Sep, [facility] [address] [id number] [place] [address] Sep, [facility] [address] [id number] [place] [address] Sep, [facility] [address] [id number] [place] [address] Sep, [facility] [address] [id number] [place] [address] Sep, [facility] [address] [id number] [place] [address] Aug, [facility] [address] [id number] [place] [address] Aug, [facility] [place] [facility] [address] [id number] [place] [address] Aug, [facility] [facility] [address] [id number] [place] [address] Aug, [facility] [place] [facility] [address] [id number] [place] [address] Jul, [facility] [place] [facility] [address] [id number] [place] [address] Jul, [facility] [place] [facility] [address] [id number] [place] [address] Jul, [facility] [place] [facility] [address] [facility] [id number] [place] [address] Jul, [facility] [place] [facility] [address] [id number] [place] [address] Jun, [facility] [place] [facility] [address] [id number] [place] [address] Jun, [facility] [place] [facility] [address] [id number] [place] [address] Jun, [facility] [place] [facility] [address] [facility] [id number] [place] [address] Jun, [facility] [place] [facility] [address] [id number] [place] [address] Jun, [facility] [place] [facility] [address] [id number] [place] [address] 24 May, 2012 [facility] [place] [facility] [address] [id number] [place] [address] 13 May, 2012 [facility] [place] [facility] [address] [id number] [place] [address] 12 Sep2011 [facility] [place] [facility] [address] [id number] [place] [address] 11 Sep2011 [facility] [place] [facility] [address] [id number] [place] [address] 10 Sep2011 [facility] [address] [facility] [id number] [place] [address] 06 Sep2011 [facility] [place] [facility] [address] [facility] [id number] [place] [address] 05 Sep2011 [facility] [place] [address] [id number] [place] [address] Apr, [facility] [place] [address] [id number] [place] [address] Apr, [facility] [place] [facility] [address] [id number] [place] [address] Apr, [facility] [place] [address] [id number] [place] [address] Apr, [facility] [place] [facility] [address] [id number] [place] [address] Apr, [facility] [place] [facility] [address] [id number] [place] [address] Apr, [facility] [place] [facility] [address] [id number] [place] [address] Apr, [facility] [place] [facility] [address] [id number] [place] [address] Apr, [facility] [place] [facility] [address] [id number] [place] [address] Mar, [facility] [place] [facility] [address] [id number] [place] [address] Mar, [facility] [place] [address] [id number] [place] [address] Mar, [facility] [place] [facility] [address] [id number] [place] [address] Feb, [facility] [place] [address] [id number] [place] [address] January, [facility] [place] [facility] [address] [id number] [place] [address] January, [facility] [facility] [address] [id number] [place] [address] January, [facility] [place] [facility] [address] [id number] [place] [address] Dec, [facility] [address] [facility] [id number] [place] [address] Dec, [facility] [address] [facility] [id number] [place] [address] Dec, [facility] [address] [facility] [id number] [place] [address] Dec, [facility] [address] [facility] [id number] [place] [address] Dec, [facility] [address] [facility] [id number] [place] [address] Dec, IMMUNIZATIONS No Known Immunizations SOCIAL HISTORY Never Assessed REASON FOR VISIT EMR-[facility] PLAN OF CARE VITAL [...] dizziness, renal insuff, heat cath showed CAD ([facility]) 01/03/2012 Hospitalization History CABG (Reji) Dr. Banks 02/2012
--- OUTSIDE RECORDS SUMMARY | 2019-05-03 09:34 | XMS REPORT ---
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 Active 2248021525236 Problem Chronic fatigue R53.82 Active 40749051 Problem Vertigo R42 Active 836206810 Problem Anemia, unspecified type D64.9 Active 987486127 Problem Iron deficiency anemia, unspecified iron deficiency anemia type D50.9 Active 12752280 Problem Mixed hyperlipidemia E78.2 Active 599633870 ALLERGIES No Information ENCOUNTERS Encounter Location Date Diagnosis [place] [id number] [place] [address] Dec, [place] [id number] [place] [address] Nov, Chest wall pain R07.89 [facility] [id number] [place] [address] Nov, [facility] [id number] [place] [address] Oct, Chest wall pain R07.89 [facility] [id number] [place] [address] Oct, Encounter for immunization Z23 [facility] [id number] [place] [address] Sep, [facility] [id number] [place] [address] Sep, Chest wall pain R07.89 [facility] [address] [address] Aug, Chest wall pain R07.89 [facility] [address], [place] [address] Jul, Chest wall pain R07.89 [facility] [id number] [place] [address] Jun, Chest wall pain R07.89 [facility] [address], [place] [address] Jun, [facility] [id number] [place] [address] Jun, Encounter for immunization Z23 [facility] [id number] [place] [address] Jun, Chest wall pain R07.89 [facility] [id number] [place] [address] Jun, Encounter for immunization Z23 [facility] [id number] [place] [address] May, [facility] [address], [place] [address] May, Medicare annual wellness visit, initial Z00.00 ; Chest wall pain R07.89 ; Mixed hyperlipidemia E78.2 ; 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 ; History of smoking Z87.891 and Chronic kidney disease N18.9 [facility] [address], [place] [address] May, Chest wall pain R07.89 [facility] [address], [place] [address] Apr, Chest wall pain R07.89 [facility] [id number] [place] [address] Apr, [facility] [id number] [place] [address] Apr, Chest wall pain R07.89 ; Chronic kidney disease N18.9 ; Iron deficiency anemia, unspecified iron deficiency anemia type D50.9 ; Chronic fatigue R53.82 ; 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 and Anemia, unspecified type D64.9 [place] [id number] [place] [address] Apr, Chest wall pain R07.89 [place] [id number] [place] [address] Mar, Chest wall pain R07.89 [place] [id number] [place] [address] Feb, Chest wall pain R07.89 [place] [id number] [place] [address] January, Chest wall pain R07.89 [place] [id number] [place] [address] Dec, Chest wall pain R07.89 ; 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 and Vertigo R42 [place] [id number] [place] [address] Dec, Chest wall pain R07.89 [place] [id number] [place] [address] Nov, Chest wall pain R07.89 [place] [id number] [place] [address] Oct, Chest wall pain R07.89 [place] [id number] [place] [address] Sep, Chest wall pain R07.89 and Pleurodynia R07.81 [place] [id number] [place] [address] Sep, [facility] [id number] [place] [address] Sep, Chest wall pain R07.89 and Sore throat J02.9 [facility] [id number] [place] [address] Sep, [facility] [id number] [place] [address] Sep, Sore throat J02.9 and Acute nasopharyngitis J00 [facility] [id number] [place] [address] Sep, [facility] [id number] [place] [address] Aug, Chest wall pain R07.89 [facility] [id number] [place] [address] Jul, Chest wall pain R07.89 [facility] [id number] [place] [address] Jul, [facility] [id number] [place] [address] Jul, Chest wall pain R07.89 [facility] [id number] [place] [address] Jul, Chest wall pain R07.89 ; Chronic fatigue R53.82 ; Anemia, unspecified type D64.9 ; Vertigo R42 and 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 [facility] [id number] [place] [address] Jun, Chest wall pain R07.89 [facility] [id number] [place] [address] Apr, Chest wall pain R07.89 [facility] [address] [address] Apr, [facility] [id number] [place] [address] Apr, Dental abscess K04.7 [facility] [id number] [place] [address] Apr, [facility] [id number] [place] [address] Apr, Chest wall pain R07.89 [facility] [id number] [place] [address] Mar, Chest wall pain R07.89 [facility] [id number] [place] [address] Feb, Chest wall pain R07.89 ; Lateral epicondylitis of right elbow M77.11 and Mixed hyperlipidemia E78.2 [facility] [id number] [place] [address] Feb, Chest wall pain R07.89 [facility] [id number] [place] [address] January, [facility] [id number] [place] [address] January, Chest wall pain R07.89 [facility] [id number] [place] [address] Dec, Chest wall pain R07.89 [facility] [id number] [place] [address] Nov, [facility] [id number] [place] [address] Nov, Hypokalemia E87.6 [facility] [address] [place] [address] Nov, Hypokalemia E87.6 and Iron deficiency anemia, unspecified iron deficiency anemia type D50.9 [facility] [address], [place] [address] Nov, [facility] [id number] [place] [address] Nov, Nausea R11.0 and Hypovolemia E86.1 [facility] [id number] [place] [address] Nov, [facility] [id number] [place] [address] 13 Nov, 2016 [facility] [id number] [place] [address] Nov, Chest wall pain R07.89 [facility] [id number] [place] [address] Nov, Bronchitis J40 [facility] [address] [address] 09 Oct, 2016 Chest wall pain R07.89 [facility] [id number] [place] [address] Sep, Chest wall pain R07.89 [facility] [id number] [place] [address] 16 Aug, 2016 Chest wall pain R07.89 [facility] [id number] [place] [address] Aug, Chest pain on breathing R07.1 [facility] [id number] [place] [address] 10 Jul, 2016 [facility] [id number] [place] [address] 07 Jun, 2016 [facility] [id number] [place] [address] 16 May, 2016 Chest wall pain R07.89 ; Iron deficiency anemia, unspecified iron deficiency anemia type D50.9 ; Chronic kidney disease N18.9 and Encounter for immunization Z23 [facility] [id number] [place] [address] May, [facility] [address] [address] Apr, [facility] [address] [address] Mar, [facility] [address] [address] Mar, [facility] [address] [address] Feb, [place] [address] [address] Feb, Iron deficiency anemia, unspecified iron deficiency anemia type D50.9 [facility] [address] [address] Feb, Dehydration E86.0 ; Diarrhea, unspecified type R19.7 ; Dizziness R42 and Other specified hypotension I95.89 [place] [id number] [place] [address] Feb, Anemia, unspecified type D64.9 [place] [id number] [place] [address] January, Anemia, unspecified type D64.9 [place] [id number] [place] [address] January, Paresthesia R20.2 [place] [id number] [place] [address] January, Chest wall pain R07.89 [facility] [address] [address] Dec, Insomnia G47.00 [place] [address] [address] Dec, Chest pain on breathing R07.1 [facility] [id number] [place] [address] Nov, Chest pain on breathing R07.1 [facility] [id number] [place] [address] Oct, [facility] [id number] [place] [address] Oct, [facility] [id number] [place] [address] Oct, Low back pain M54.5 and Chest wall pain R07.89 [facility] [address] [address] Oct, Pleurodynia R07.81 [facility] [id number] [place] [address] Sep, Pleurodynia R07.81 and Other nerve root and plexus disorders G54.8 [facility] [id number] [place] [address] Aug, Chronic kidney disease N18.9 ; Encounter for immunization Z23 ; Chest wall pain R07.89 ; Urinary frequency R35.0 and Vertigo R42 [facility] [id number] [place] [address] Aug, [facility] [id number] [place] [address] Jul, [facility] [id number] [place] [address] Jul, [facility] [address] [address] Jun, [facility] [id number] [place] [address] Jun, [facility] [address] [address] May, [facility] [address] [id number], [place] [address] May, [facility] [address] [id number], [place] [address] May, [facility] [address] [id number], [place] [address] May, Coronary atherosclerosis of unspecified type of vessel, nooksack or graft 414.00 [facility] [address] [id number], [place] [address] Apr, [facility] [address] [id number], [place] [address] Apr, [facility] [address] [id number], [place] [address] Apr, [facility] [address] [id number], [place] [address] Apr, [facility] [address] [id number], [place] [address] Apr, [facility] [address] [id number], [place] [address] Apr, Coronary atherosclerosis of unspecified type of vessel, nooksack or graft 414.00 and Left-sided chest wall pain 786.52 [facility] [address] [id number], [place] [address] Mar, [facility] [address] [id number], [place] [address] Mar, [facility] [address] [id number], [place] [address] Feb, [facility] [address] [id number], [place] [address] Feb, [facility] [address] [id number], [place] [address] January, [facility] [place] [facility] [address] [id number] [place] [address] January, [facility] [address] [id number] [place] [address] January, [facility] [place] [facility] [address] [id number] [place] [address] January, Neuropathic pain of chest 353.8 [facility] [place] [facility] [address] [id number] [place] [address] Dec, [facility] [place] [facility] [address] [id number] [place] [address] Dec, [facility] [place] [facility] [address] [id number] [place] [address] Nov, [facility] [place] [facility] [address] [id number] [place] [address] Nov, [facility] [place] [facility] [address] [id number] [place] [address] Nov, [facility] [place] [facility] [address] [id number] [place] [address] Nov, [facility] [place] [facility] [address] [facility] [id number] [place] [address] Nov, [facility] [place] [facility] [address] [id number] [place] [address] Nov, [facility] [place] [facility] [address] [id number], [place] [address] Oct, [facility] [place] [facility] [address] [id number] [place] [address] Oct, [facility] [place] [facility] [address] [facility] [id number] [place] [address] Oct, [facility] [place] [facility] [address] [facility] [id number] [place] [address] Oct, [facility] [place] [facility] [address] [id number] [place] [address] Oct, [facility] [address] [id number] [place] [address] Oct, [facility] [place] [facility] [address] [id number] [place] [address] Sep, [facility] [address] [id number] [place] [address] Sep, [facility] [place] [facility] [address] [id number] [place] [address] Sep, [facility] [address] [id number] [place] [address] Sep, [facility] [address] [id number] [place] [address] Aug, [facility] [place] [facility] [address] [id number] [place] [address] Aug, [facility] [address] [id number] [place] [address] Aug, [facility] [address] [id number] [place] [address] Aug, [facility] [address] [id number] [place] [address] Aug, [facility] [place] [facility] [address] [id number] [place] [address] Aug, [facility] [place] [facility] [address] [id number] [place] [address] Aug, [facility] [place] [facility] [address] [id number] [place] [address] Aug, [facility] [place] [facility] [address] [id number] [place] [address] Aug, [facility] [place] [facility] [address] [id number] [place] [address] Aug, [facility] [place] [facility] [address] [id number] [place] [address] Jul, [facility] [place] [facility] [address] [id number] [place] [address] Jul, [facility] [place] [facility] [address] [id number] [place] [address] Jul, [facility] [place] [facility] [address] [id number] [place] [address] Jul, [facility] [place] [facility] [address] [id number] [place] [address] Jun, [facility] [place] [facility] [address] [id number] [place] [address] Jun, [facility] [place] [facility] [address] [id number] [place] [address] Jun, [facility] [place] [facility] [address] [id number] [place] [address] Jun, [facility] [place] [facility] [address] [id number] [place] [address] May, [facility] [place] [facility] [address] [id number] [place] [address] May, [facility] [place] [facility] [address] [id number] [place] [address] May, [facility] [place] [facility] [address] [id number], [place] [address] May, [facility] [place] [facility] [address] [id number] [place] [address] Apr, [facility] [place] [facility] [address] [id number] [place] [address] Apr, [facility] [place] [facility] [address] [id number] [place] [address] Feb, [facility] [place] [facility] [address] [id number] [place] [address] January, [facility] [place] [facility] [address] [id number] [place] [address] January, [facility] [place] [facility] [address] [id number] [place] [address] January, [facility] [place] [facility] [address] [id number] [place] [address] January, [facility] [place] [facility] [address] [id number] [place] [address] January, [facility] [place] [facility] [address] [id number] [place] [address] January, [facility] [place] [facility] [address] [id number] [place] [address] Dec, [facility] [place] [facility] [address] [id number] [place] [address] Dec, [facility] [place] [facility] [address] [id number] [place] [address] Dec, [facility] [place] [facility] [address] [id number] [place] [address] Dec, [facility] [place] [facility] [address] [id number] [place] [address] Dec, [facility] [place] [facility] [address] [id number] [place] [address] Dec, [facility] [place] [facility] [address] [id number] [place] [address] Dec, [facility] [place] [facility] [address] [id number] [place] [address] Dec, [facility] [place] [facility] [address] [id number] [place] [address] Nov, [facility] [place] [facility] [address] [id number] [place] [address] Nov, [facility] [place] [facility] [address] [id number] [place] [address] Nov, [facility] [place] [facility] [address] [id number] [place] [address] Nov, [facility] [place] [facility] [address] [id number] [place] [address] Nov, [facility] [place] [facility] [address] [id number] [place] [address] Nov, [facility] [place] [facility] [address] [id number] [place] [address] Nov, [facility] [place] [facility] [address] [id number] [place] [address] Oct, [facility] [place] [facility] [address] [id number] [place] [address] Oct, [facility] [place] [facility] [address] [id number] [place] [address] Oct, [facility] [place] [facility] [address] [id number] [place] [address] Oct, [facility] [place] [facility] [address] [id number] [place] [address] Sep, [facility] [place] [facility] [address] [id number] [place] [address] Sep, [facility] [place] [facility] [address] [id number] [place] [address] Sep, [facility] [place] [facility] [address] [id number] [place] [address] Sep, [facility] [place] [facility] [address] [id number] [place] [address] Aug, [facility] [place] [facility] [address] [id number] [place] [address] Aug, [facility] [place] [facility] [address] [id number] [address] Jul, [facility] [address] [id number] [place] [address] Jul, [facility] [place] [facility] [address] [id number] [place] [address] Jun, [facility] [place] [facility] [address] [id number] [place] [address] Jun, [facility] [place] [facility] [address] [id number] [place] [address] Jun, [facility] [place] [facility] [address] [id number] [place] [address] May, [facility] [place] [facility] [address] [id number] [place] [address] Apr, [facility] [place] [facility] [address] [id number] [place] [address] Apr, [facility] [place] [facility] [address] [id number] [place] [address] Mar, [facility] [place] [facility] [address] [id number] [place] [address] Feb, [facility] [place] [facility] [address] [id number] [place] [address] Feb, [facility] [place] [facility] [address] [id number] [place] [address] January, [facility] [place] [facility] [address] [id number] [place] [address] January, [facility] [place] [facility] [address] [id number] [place] [address] Dec, [facility] [place] [facility] [address] [id number] [place] [address] Dec, [facility] [place] [facility] [address] [id number] [place] [address] Dec, [facility] [place] [facility] [address] [id number] [place] [address] 05 Dec, 2012 [facility] [address] [id number] [place] [address] Nov, [facility] [place] [facility] [address] [id number] [place] [address] Nov, [facility] [address] [id number] [place] [id number] Oct, [facility] [place] [facility] [address] [id number] [place] [address] Oct, [facility] [address] [id number] [place] [address] Oct, [facility] [address] [id number] [place] [address] Sep, [facility] [address] [id number] [place] [address] Sep, [facility] [address] [id number] [place] [address] Sep, [facility] [address] [id number] [place] [address] Sep, [facility] [address] [id number] [place] [address] Sep, [facility] [address] [id number] [place] [address] Aug, [facility] [address] [id number] [place] [address] Aug, [facility] [place] [facility] [address] [id number] [place] [address] Aug, [facility] [place] [facility] [address] [id number] [place] [address] Aug, [facility] [place] [facility] [address] [id number] [place] [address] Jul, [facility] [place] [facility] [address] [id number] [place] [address] Jul, [facility] [place] [facility] [address] [id number] [place] [address] Jul, [facility] [place] [facility] [address] [facility] [id number] [place] [address] Jul, [facility] [place] [facility] [address] [id number] [place] [address] Jun, [facility] [place] [facility] [address] [id number] [place] [address] Jun, [facility] [place] [facility] [address] [id number] [place] [address] Jun, [facility] [place] [facility] [address] [facility] [id number] [place] [address] Jun, [facility] [place] [facility] [address] [id number], [place] [address] Jun, [facility] [place] [facility] [address] [id number], [place] [address] 24 May, 2012 [facility] [place] [facility] [address] [id number], [place] [address] 13 May, 2012 [facility] [place] [facility] [address] [id number], [place] [address] 12 Sep2011 [facility] [place] [facility] [address] [id number], [place] [address] 11 Sep2011 [facility] [place] [facility] [address] [id number], [place] [address] 10 Sep2011 [facility] [place] [facility] [address] [facility] [id number], [place] [address] 06 Sep2011 [facility] [place] [facility] [address] [facility] [id number], [place] [address] 05 Sep2011 [facility] [place] [facility] [address] [id number] [place] [address] Apr, [facility] [place] [facility] [address] [id number] [place] [address] Apr, [facility] [place] [facility] [address] [id number] [place] [address] Apr, [facility] [place] [facility] [address] [id number] [place] [address] Apr, [facility] [place] [facility] [address] [id number] [place] [address] Apr, [facility] [place] [facility] [address] [id number] [place] [address] Apr, [facility] [place] [facility] [address] [id number] [place] [address] Apr, [facility] [place] [facility] [address] [id number] [place] [address] Apr, [facility] [place] [facility] [address] [id number] [place] [address] Mar, [facility] [place] [facility] [address] [id number] [place] [address] Mar, [facility] [place] [facility] [address] [id number] [place] [address] Mar, [facility] [place] [facility] [address] [id number] [place] [address] Feb, [facility] [place] [facility] [address] [id number] [place] [address] January, [facility] [place] [facility] [address] [id number] [place] [address] January, [facility] [place] [facility] [address] [id number] [place] [address] January, [facility] [place] [facility] [address] [id number] [place] [address] Dec, [facility] [address] [facility] [id number] [place] [address] Dec, [facility] [address] [facility] [id number], [place] [address] Dec, [facility] [address] [facility] [id number], [place] [address] Dec, [facility] [address] [facility] [id number], [place] [address] Dec, [facility] [address] [facility] [id number], [place] [address] Dec, IMMUNIZATIONS No Known Immunizations SOCIAL HISTORY Never Assessed REASON FOR VISIT EMR-[facility] [place] OF CARE VITAL SIGNS MEDICATIONS Unknown [...] 04/02/2012 Surgical History appendectomy age 10 at [facility] Surgical History cholecystectomy-[facility] 2007 Surgical History coronary artery bypass graft LAD 02/2012 Surgical History heart cath x2 after bypass, pt has 5 stents Hospitalization History Chest pain, dizziness, renal insuff, heat cath showed CAD ([facility]) 01/03/2012 Hospitalization History CABG ([facility]) Dr. Banks 02/2012
--- OUTSIDE RECORDS SUMMARY | 2019-05-03 09:35 | XMS REPORT ---
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 Active 8638115397332 Problem Anemia, unspecified type D64.9 Active 908836101 Problem Vertigo R42 Active 242519968 Problem Mixed hyperlipidemia E78.2 Active 856675059 Problem Iron deficiency anemia, unspecified iron deficiency anemia type D50.9 Active 27262196 ALLERGIES No Information ENCOUNTERS Encounter Location Date Diagnosis [place] [address] [address] Jul, Chest wall pain R07.89 [facility] [address] [id number] [place] [address] Jun, Chest wall pain R07.89 [facility] [id number] [place] [address] Jun, [facility] [id number] [place] [address] Jun, Encounter for immunization Z23 [facility] [address] [address] Jun, Chest wall pain R07.89 [place] [address] [address] Jun, Encounter for immunization Z23 [facility] [address] [address] May, [facility] [address] [place] [place] [id number] [place] [address] 11 May, 2018 Medicare annual wellness visit, initial Z00.00 ; Chest wall pain R07.89 ; Mixed hyperlipidemia E78.2 ; Coronary artery disease involving chilkat coronary artery of chilkat heart without angina pectoris I25.10 ; History of smoking Z87.891 and Chronic kidney disease N18.9 [facility] [id number] [place] [address] May, Chest wall pain R07.89 [place] [address] [place] [id number] [place] [address] Apr, Chest wall pain R07.89 [place] [address] [place] [id number] [place] [address] Apr, [facility] [address] [place] [id number] [place] [address] Apr, Chest wall pain R07.89 ; Chronic kidney disease N18.9 ; Iron deficiency anemia, unspecified iron deficiency anemia type D50.9 ; Chronic fatigue R53.82 ; Coronary artery disease involving chilkat coronary artery of chilkat heart without angina pectoris I25.10 and Anemia, unspecified type D64.9 [place] [address] [address] Apr, Chest wall pain R07.89 [place] [id number] [address] Mar, Chest wall pain R07.89 [place] [address] [place] [id number] [place] [address] Feb, Chest wall pain R07.89 [place] [id number] [address] January, Chest wall pain R07.89 [place] [address] [address] Dec, Chest wall pain R07.89 ; Coronary artery disease involving chilkat coronary artery of chilkat heart without angina pectoris I25.10 and Vertigo R42 [facility] [address] [address] Dec, Chest wall pain R07.89 [facility] [id number] [place] [address] Nov, Chest wall pain R07.89 [facility] [id number] [place] [address] Oct, Chest wall pain R07.89 [facility] [id number] [place] [address] Sep, Chest wall pain R07.89 and Pleurodynia R07.81 [facility] [id number] [place] [address] Sep, [facility] [address] [id number] [place] [address] Sep, Chest wall pain R07.89 and Sore throat J02.9 [facility] [address] [place] [id number] [place] [address] Sep, [facility] [address] [id number] [place] [address] Sep, Sore throat J02.9 and Acute nasopharyngitis J00 [facility] [address] [address] Sep, [facility] [address] [id number] [place] [address] Aug, Chest wall pain R07.89 [facility] [address] [address] Jul, Chest wall pain R07.89 [facility] [address] [place] [id number] [place] [address] Jul, [facility] [address] [id number] [place] [address] Jul, Chest wall pain R07.89 [facility] [address] [place] [place] [id number] [place] [address] Jul, Chest wall pain R07.89 ; Chronic fatigue R53.82 ; Anemia, unspecified type D64.9 ; Vertigo R42 and Coronary artery disease involving chilkat coronary artery of chilkat heart without angina pectoris I25.10 [facility] [address] [place] [place] [id number] [place] [address] Jun, Chest wall pain R07.89 [facility] [address] [place] [id number] [place] [address] Apr, Chest wall pain R07.89 [facility] [address] [id number] [place] [address] Apr, [facility] [address] [place] [id number] [place] [address] Apr, Dental abscess K04.7 [facility] [address] [place] [id number] [place] [address] Apr, [facility] [address] [place] [id number] [place] [address] Apr, Chest wall pain R07.89 [facility] [address] [place] [id number] [place] [address] Mar, Chest wall pain R07.89 [facility] [address] [place] [id number] [place] [address] 15 Feb, 2017 Chest wall pain R07.89 ; Lateral epicondylitis of right elbow M77.11 and Mixed hyperlipidemia E78.2 [facility] [address] [place] [id number] [place] [address] Feb, Chest wall pain R07.89 [facility] [address] [address] January, [facility] [address] [place] [id number] [place] [address] January, Chest wall pain R07.89 [facility] [address] [place] [id number] [place] [address] Dec, Chest wall pain R07.89 [facility] [address] [place] [id number] [place] [address] Nov, [facility] [address] [place] [id number] [place] [address] Nov, Hypokalemia E87.6 [facility] [address] [place] [id number] [place] [address] Nov, Hypokalemia E87.6 and Iron deficiency anemia, unspecified iron deficiency anemia type D50.9 [facility] [address] [place] [id number] [place] [address] Nov, [facility] [address] [place] [id number] [place] [address] Nov, Nausea R11.0 and Hypovolemia E86.1 [facility] [address] [place] [id number] [place] [address] Nov, [facility] [address] [place] [id number] [place] [address] Nov, [facility] [id number] [place] [address] Nov, Chest wall pain R07.89 [facility] [address] [place] [id number] [place] [address] Nov, Bronchitis J40 [facility] [id number] [place] [address] Oct, Chest wall pain R07.89 [facility] [address] [place] [id number] [place] [address] Sep, Chest wall pain R07.89 [facility] [address] [address] Aug, Chest wall pain R07.89 [facility] [address] [place] [id number] [place] [address] Aug, Chest pain on breathing R07.1 [facility] [address] [address] Jul, [facility] [address] [place] [id number] [place] [address] Jun, [place] [address] [place] [id number] [place] [address] May, Chest wall pain R07.89 ; Iron deficiency anemia, unspecified iron deficiency anemia type D50.9 ; Chronic kidney disease N18.9 and Encounter for immunization Z23 [facility] [address] [place] [id number] [place] [address] May, [place] [address] [address] Apr, [facility] [address] [place] [id number] [place] [address] Mar, [place] [address] [place] [id number] [place] [address] Mar, [facility] [address] [place] [id number] [place] [address] Feb, [facility] [address] [place] [id number] [place] [address] Feb, Iron deficiency anemia, unspecified iron deficiency anemia type D50.9 [facility] [address] [place] [id number] [place] [address] Feb, Dehydration E86.0 ; Diarrhea, unspecified type R19.7 ; Dizziness R42 and Other specified hypotension I95.89 [facility] [address] [place] [id number] [place] [address] Feb, Anemia, unspecified type D64.9 [facility] [address] [place] [place] [id number] [place] [address] January, Anemia, unspecified type D64.9 [facility] [address] [address] January, Paresthesia R20.2 [facility] [address] [address] January, Chest wall pain R07.89 [place] [address] [address] Dec, Insomnia G47.00 [place] [address] [place] [id number] [place] [address] Dec, Chest pain on breathing R07.1 [facility] [address] [address] Nov, Chest pain on breathing R07.1 [facility] [address] [place] [id number] [place] [address] Oct, [facility] [address] [place] [id number] [place] [address] Oct, [facility] [address] [place] [id number] [place] [address] Oct, Low back pain M54.5 and Chest wall pain R07.89 [facility] [address] [place] [id number] [place] [address] Oct, Pleurodynia R07.81 [facility] [address] [place] [id number] [place] [address] Sep, Pleurodynia R07.81 and Other nerve root and plexus disorders G54.8 [place] [address] [place] [id number] [place] [address] Aug, Chronic kidney disease N18.9 ; Encounter for immunization Z23 ; Chest wall pain R07.89 ; Urinary frequency R35.0 and Vertigo R42 [facility] [address] [place] [place] [id number] [place] [address] Aug, [facility] [address] [address] Jul, [facility] [address] [place] [id number] [place] [address] Jul, [facility] [address] [address] Jun, [facility] [address] [place] [id number] [place] [address] Jun, [facility] [address] [address] May, [facility] [address] [place] [id number] [place] [address] May, [facility] [address] [place] [id number] [place] [address] May, [facility] [address] [place] [id number] [place] [address] May, Coronary atherosclerosis of unspecified type of vessel, chilkat or graft 414.00 [facility] [address] [place] [id number] [place] [address] Apr, [facility] [address] [place] [id number] [place] [address] Apr, [facility] [address] [place] [id number] [place] [address] Apr, [facility] [address] [place] [id number] [place] [address] Apr, [facility] [address] [place] [address] Apr, [facility] [address] [address] Apr, Coronary atherosclerosis of unspecified type of vessel, chilkat or graft 414.00 and Left-sided chest wall pain 786.52 [facility] [id number] [address] Mar, [facility] [address] [place] [id number] [place] [address] Mar, [facility] [address] [address] Feb, [facility] [address] [id number] [place] [address] Feb, [facility] [id number] [address] January, [facility] [id number] [address] January, [facility] [address] [address] January, [facility] [id number] [address] January, Neuropathic pain of chest 353.8 [facility] [address] [address] Dec, [facility] [address] [address] Dec, [facility] [address] [address] Nov, [facility] [address] [address] Nov, [facility] [address] [address] Nov, [facility] [place] [facility] [address] [id number] [place] [address] Nov, [facility] [place] [facility] [address] [id number] [place] [address] Nov, [facility] [place] [facility] [address] [id number] [place] [address] Nov, [facility] [place] [facility] [address] [id number] [place] [address] Oct, [facility] [place] [facility] [address] [id number] [place] [address] Oct, [facility] [place] [facility] [address] [id number] [place] [address] Oct, [facility] [place] [facility] [address] [facility] [id number] [place] [address] Oct, [facility] [place] [facility] [address] [id number] [place] [address] Oct, [facility] [place] [facility] [address] [id number] [place] [address] Oct, [facility] [place] [facility] [address] [facility] [id number] [place] [address] Sep, [facility] [place] [facility] [address] [id number] [address] Sep, [facility] [place] [facility] [address] [id number] [address] Sep, [facility] [place] [facility] [address] [id number] [place] [address] Sep, [facility] [place] [facility] [address] [id number] [place] [address] Aug, [facility] [place] [facility] [address] [id number] [place] [address] Aug, [facility] [place] [facility] [address] [id number] [place] [address] Aug, [facility] [place] [facility] [address] [id number] [place] [address] Aug, [facility] [place] [facility] [address] [id number] [place] [address] Aug, [facility] [place] [facility] [address] [facility] [id number] [place] [address] Aug, [facility] [place] [facility] [address] [id number] [place] [address] Aug, [facility] [place] [facility] [address] [facility] [id number] [place] [address] Aug, [facility] [place] [facility] [address] [facility] [id number] [place] [address] Aug, [facility] [place] [facility] [address] [facility] [id number] [place] [address] Aug, [facility] [place] [facility] [address] [id number] [place] [address] Jul, [facility] [place] [facility] [address] [facility] [id number] [place] [address] Jul, [facility] [place] [facility] [address] [facility] [id number] [place] [address] Jul, [facility] [place] [facility] [address] [id number] [address] Jul, [facility] [place] [facility] [address] [id number] [address] Jun, [facility] [place] [facility] [address] [id number] [place] [address] Jun, [facility] [place] [facility] [address] [facility] [id number] [place] [address] Jun, [facility] [place] [facility] [address] [facility] [id number] [address] Jun, [facility] [place] [facility] [address] [id number] [place] [address] May, [facility] [place] [facility] [address] [id number] [place] [address] May, [facility] [place] [facility] [address] [id number] [place] [address] May, [facility] [place] [facility] [address] [id number] [place] [address] May, [facility] [place] [facility] [address] [id number] [place] [address] Apr, [facility] [place] [facility] [address] [id number] [place] [address] Apr, [facility] [place] [facility] [address] [id number] [place] [address] Feb, [facility] [place] [facility] [address] [id number] [place] [address] January, [facility] [place] [facility] [address] [id number] [place] [address] January, [facility] [place] [facility] [address] [id number] [place] [address] January, [facility] [place] [facility] [address] [id number] [place] [address] January, [facility] [place] [facility] [address] [id number] [place] [address] January, [facility] [place] [facility] [address] [id number] [place] [address] January, [facility] [place] [facility] [address] [id number] [place] [address] Dec, [facility] [place] [facility] [address] [id number] [place] [address] Dec, [facility] [place] [facility] [address] [id number] [place] [address] Dec, [facility] [place] [facility] [address] [id number] [place] [address] Dec, [facility] [place] [facility] [address] [id number] [place] [address] Dec, [facility] [place] [facility] [address] [id number] [place] [address] Dec, [facility] [place] [facility] [address] [id number] [place] [address] Dec, [facility] [place] [facility] [address] [id number] [place] [address] Dec, [facility] [place] [facility] [address] [id number] [place] [address] Nov, [facility] [place] [facility] [address] [id number] [place] [address] Nov, [facility] [place] [facility] [address] [id number] [place] [address] Nov, [facility] [place] [facility] [address] [id number] [place] [address] Nov, [facility] [place] [facility] [address] [id number] [place] [address] Nov, [facility] [place] [facility] [address] [id number] [place] [address] Nov, [facility] [place] [facility] [address] [id number] [place] [address] Nov, [facility] [place] [facility] [address] [id number] [place] [address] Oct, [facility] [place] [facility] [address] [id number] [place] [address] Oct, [facility] [place] [facility] [address] [id number] [place] [address] Oct, [facility] [place] [facility] [address] [id number] [place] [address] Oct, [facility] [address] [id number] [place] [address] Sep, [facility] [place] [facility] [address] [id number] [place] [address] Sep, [facility] [address] [id number] [place] [address] Sep, [facility] [address] [id number] [place] [address] Sep, [facility] [address] [id number] [place] [address] Aug, [facility] [address] [id number] [place] [address] Aug, [facility] [address] [id number] [place] [address] Jul, [facility] [address] [id number] [place] [address] Jul, [facility] [address] [id number] [place] [address] Jun, [facility] [address] [id number] [place] [address] Jun, [facility] [place] [facility] [address] [id number] [place] [address] Jun, [facility] [place] [facility] [address] [id number] [place] [address] May, [facility] [place] [facility] [address] [id number] [place] [address] Apr, [facility] [place] [facility] [address] [id number] [place] [address] Apr, [facility] [place] [facility] [address] [id number] [place] [address] Mar, [facility] [address] [id number] [place] [address] Feb, [facility] [place] [facility] [address] [id number] [place] [address] Feb, [facility] [address] [id number] [place] [address] January, [facility] [place] [facility] [address] [id number] [place] [address] January, [facility] [address] [id number] [place] [address] Dec, [facility] [place] [facility] [address] [id number] [place] [address] Dec, [facility] [address] [id number] [place] [address] Dec, [facility] [address] [id number] [place] [address] Dec, [facility] [address] [id number] [place] [address] Nov, [facility] [place] [facility] [address] [id number] [place] [address] Nov, [facility] [place] [facility] [address] [id number] [place] [address] Oct, [facility] [place] [facility] [address] [id number] [place] [address] Oct, [facility] [place] [facility] [address] [id number] [place] [address] Oct, [facility] [place] [facility] [address] [id number] [place] [address] Sep, [facility] [place] [facility] [address] [id number] [place] [address] Sep, [facility] [place] [facility] [address] [id number] [place] [address] Sep, [facility] [address] [id number] [place] [address] Sep, [facility] [place] [facility] [address] [id number] [place] [address] Sep, [facility] [place] [facility] [address] [id number] [place] [address] Aug, [facility] [place] [facility] [address] [id number] [place] [address] Aug, [facility] [place] [facility] [address] [id number] [place] [address] Aug, [facility] [place] [facility] [address] [id number] [place] [address] Aug, [facility] [place] [facility] [address] [id number] [place] [address] Jul, [facility] [place] [facility] [address] [id number] [place] [address] Jul, [facility] [place] [facility] [address] [id number] [place] [address] Jul, [facility] [place] [facility] [address] [facility] [id number] [place] [address] Jul, [facility] [place] [facility] [address] [id number] [place] [address] Jun, [facility] [place] [facility] [address] [id number] [place] [address] Jun, [facility] [place] [facility] [address] [id number] [place] [address] Jun, [facility] [place] [facility] [address] [id number] [place] [address] Jun, [facility] [place] [facility] [address] [id number] [place] [address] Jun, [facility] [place] [facility] [address] [id number] [place] [address] 24 May, 2011 [facility] [place] [facility] [address] [id number] [place] [address] 13 May, 2011 [facility] [place] [facility] [address] [id number] [place] [address] 12 May, 2011 [facility] [place] [facility] [address] [id number] [place] [address] 11 May, 2011 [facility] [place] [facility] [address] [address] [id number] [place] [address] 10 May, 2011 [facility] [place] [facility] [address] [id number] [place] [address] 06 May, 2012 [facility] [place] [facility] [address] [id number] [place] [address] 05 May, 2012 [facility] [place] [facility] [address] [id number] [place] [address] 30 Apr, 2012 [facility] [place] [facility] [address] [id number] [place] [address] Apr, [facility] [place] [facility] [address] [id number] [place] [address] Apr, [facility] [place] [facility] [address] [id number] [place] [address] Apr, [facility] [place] [facility] [address] [id number] [place] [address] Apr, [facility] [place] [facility] [address] [id number] [place] [address] Apr, [facility] [place] [facility] [address] [id number] [place] [address] Apr, [facility] [place] [facility] [address] [id number] [place] [address] Apr, [facility] [place] [facility] [address] [id number] [place] [address] Mar, [facility] [id number] [address] Mar, [facility] [id number] [address] Mar, [facility] [id number] [address] Feb, [facility] [id number] [address] January, [facility] [id number] [address] January, [facility] [id number] [place] [address] January, [facility] [id number] [address] Dec, [facility] [id number] [address] Dec, [facility] [id number] [address] Dec, [facility] [id number] [address] Dec, [facility] [id number] [address] Dec, [facility] [id number] [address] Dec, IMMUNIZATIONS No Known Immunizations SOCIAL HISTORY Never Assessed REASON FOR VISIT Controlled Med Refill PLAN OF CARE VITAL SIGNS MEDICATIONS Medication Instructions Dosage Frequency Start Date End Date Duration Status Temazepam 30 MG Orally Once a day 1 capsule at bedtime as needed 24h 30 Active RESULTS No Results PROCEDURES No Known [...] 04/02/2012 Surgical History appendectomy age 10 at [facility] Surgical History cholecystectomy-[facility] 2007 Surgical History coronary artery bypass graft LAD 02/2012 Surgical History heart cath x2 after bypass, pt has 5 stents Hospitalization History Chest pain, dizziness, renal insuff, heat cath showed CAD ([facility]) 01/03/2012 Hospitalization History CABG ([facility]) Dr. Banks 02/2012
--- OUTSIDE RECORDS SUMMARY | 2019-05-03 09:35 | XMS REPORT ---
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[place]dy heart without angina pectoris I25.10 Active 3123167371601 Problem Anemia, unspecified type D64.9 Active 811073257 Problem Vertigo R42 Active 700399172 Problem Mixed hyperlipidemia E78.2 Active 983360742 Problem Iron deficiency anemia, unspecified iron deficiency anemia type D50.9 Active 51989723 ALLERGIES No Information ENCOUNTERS Encounter Location Date Diagnosis [place] [id number] [place] [address] Jun, Chest wall pain R07.89 [facility] [id number] [place] [address] Jun, [facility] [id number] [place] [address] Jun, Encounter for immunization Z23 [facility] [id number] [place] [address] Jun, Chest wall pain R07.89 [facility] [id number] [place] [address] Jun, Encounter for immunization Z23 [place] [id number] [place] [address] May, [place] [id number] [address] 11 May, 2018 Medicare annual wellness visit, initial Z00.00 ; Chest wall pain R07.89 ; Mixed hyperlipidemia E78.2 ; Coronary artery disease involving pass[place] coronary artery of [place] heart without angina pectoris I25.10 ; History of smoking Z87.891 and Chronic kidney disease N18.9 [place] [id number] [place] [address] May, Chest wall pain R07.89 [place] [id number] [place] [address] Apr, Chest wall pain R07.89 [place] [id number] [place] [address] Apr, [place] [id number] [place] [address] Apr, Chest wall pain R07.89 ; Chronic kidney disease N18.9 ; Iron deficiency anemia, unspecified iron deficiency anemia type D50.9 ; Chronic fatigue R53.82 ; Coronary artery disease involving pass[place]quoddy coronary artery of pass[place]dy heart without angina pectoris I25.10 and Anemia, unspecified type D64.9 [place] [address] [address] Apr, Chest wall pain R07.89 [place] [address] [address] Mar, Chest wall pain R07.89 [place] [address] [address] Feb, Chest wall pain R07.89 [place] [id number] [place] [address] January, Chest wall pain R07.89 [place] [address] [address] Dec, Chest wall pain R07.89 ; Coronary artery disease involving passamaquoddy coronary artery of passama[place]dy heart without angina pectoris I25.10 and Vertigo R42 [facility] [id number] [place] [address] Dec, Chest wall pain R07.89 [facility] [id number] [place] [address] Nov, Chest wall pain R07.89 [facility] [id number] [place] [address] Oct, Chest wall pain R07.89 [facility] [id number] [place] [address] Sep, Chest wall pain R07.89 and Pleurodynia R07.81 [facility] [id number] [place] [address] Sep, [facility] [id number] [place] [address] Sep, Chest wall pain R07.89 and Sore throat J02.9 [facility] [id number] [place] [address] Sep, [facility] [id number] [place] [address] Sep, Sore throat J02.9 and Acute nasopharyngitis J00 [facility] [id number] [place] [address] Sep, [facility] [id number] [place] [address] Aug, Chest wall pain R07.89 [facility] [id number] [place] [address] Jul, Chest wall pain R07.89 [facility] [id number] [place] [address] Jul, [facility] [address] [place] [address] Jul, Chest wall pain R07.89 [facility] [id number] [place] [address] Jul, Chest wall pain R07.89 ; Chronic fatigue R53.82 ; Anemia, unspecified type D64.9 ; Vertigo R42 and Coronary artery disease involving passamaquoddy coronary artery of passamaquoddy heart without angina pectoris I25.10 [facility] [id number] [place] [address] Jun, Chest wall pain R07.89 [place] [id number] [place] [address] Apr, Chest wall pain R07.89 [facility] [id number] [place] [address] Apr, [facility] [address] [address] Apr, Dental abscess K04.7 [facility] [id number] [place] [address] Apr, [place] [address] [address] Apr, Chest wall pain R07.89 [place] [id number] [place] [address] Mar, Chest wall pain R07.89 [facility] [id number] [place] [address] Feb, Chest wall pain R07.89 ; Lateral epicondylitis of right elbow M77.11 and Mixed hyperlipidemia E78.2 [facility] [address] [address] Feb, Chest wall pain R07.89 [facility] [id number] [place] [address] January, [facility] [id number] [place] [address] January, Chest wall pain R07.89 [facility] [id number] [place] [address] Dec, Chest wall pain R07.89 [facility] [id number] [place] [address] Nov, [facility] [address] [address] Nov, Hypokalemia E87.6 [facility] [id number] [place] [address] Nov, Hypokalemia E87.6 and Iron deficiency anemia, unspecified iron deficiency anemia type D50.9 [place] [id number] [place] [address] Nov, [facility] [id number] [place] [address] Nov, Nausea R11.0 and Hypovolemia E86.1 [facility] [id number] [place] [address] Nov, [facility] [id number] [place] [address] Nov, [place] [id number] [place] [address] Nov, Chest wall pain R07.89 [facility] [id number] [place] [address] Nov, Bronchitis J40 [facility] [id number] [place] [address] 09 Oct, 2016 Chest wall pain R07.89 [facility] [id number] [place] [address] Sep, Chest wall pain R07.89 [facility] [id number] [place] [address] Aug, Chest wall pain R07.89 [place] [address] [address] Aug, Chest pain on breathing R07.1 [facility] [address] [address] Jul, [facility] [address] [address] Jun, [facility] [id number] [place] [address] May, Chest wall pain R07.89 ; Iron deficiency anemia, unspecified iron deficiency anemia type D50.9 ; Chronic kidney disease N18.9 and Encounter for immunization Z23 [place] [id number] [place] [address] May, [place] [address] [address] Apr, [place] [id number] [place] [address] Mar, [place] [id number] [place] [address] Mar, [place] [id number] [place] [address] Feb, [place] [address] [address] Feb, Iron deficiency anemia, unspecified iron deficiency anemia type D50.9 [facility] [id number] [place] [address] Feb, Dehydration E86.0 ; Diarrhea, unspecified type R19.7 ; Dizziness R42 and Other specified hypotension I95.89 [place] [id number] [place] [address] Feb, Anemia, unspecified type D64.9 [facility] [id number] [place] [address] January, Anemia, unspecified type D64.9 [facility] [id number] [place] [address] January, Paresthesia R20.2 [facility] [address] [address] January, Chest wall pain R07.89 [facility] [address] [address] Dec, Insomnia G47.00 [place] [address] [address] Dec, Chest pain on breathing R07.1 [place] [address] [address] Nov, Chest pain on breathing R07.1 [facility] [id number] [place] [address] Oct, [facility] [address] [address] Oct, [facility] [id number] [place] [address] Oct, Low back pain M54.5 and Chest wall pain R07.89 [facility] [id number] [place] [address] Oct, Pleurodynia R07.81 [facility] [id number] [place] [address] Sep, Pleurodynia R07.81 and Other nerve root and plexus disorders G54.8 [facility] [id number] [place] [address] Aug, Chronic kidney disease N18.9 ; Encounter for immunization Z23 ; Chest wall pain R07.89 ; Urinary frequency R35.0 and Vertigo R42 [facility] [id number] [place] [address] Aug, [facility] [id number] [place] [address] Jul, [facility] [id number] [place] [address] Jul, [facility] [id number] [place] [address] Jun, [facility] [id number] [place] [address] Jun, [facility] [id number] [place] [address] May, [facility] [id number] [place] [address] May, [facility] [id number] [place] [address] May, [facility] [id number] [place] [address] May, Coronary atherosclerosis of unspecified type of vessel, pass[place]quoddy or graft 414.00 [facility] [id number] [place] [address] Apr, [facility] [id number] [place] [address] Apr, [facility] [id number] [place] [address] Apr, [facility] [id number] [place] [address] Apr, [facility] [id number] [place] [address] Apr, [facility] [id number] [place] [address] Apr, Coronary atherosclerosis of unspecified type of vessel, pass[place]oddy or graft 414.00 and Left-sided chest wall pain 786.52 [facility] [id number] [place] [address] Mar, [facility] [address] [id number] [address] Mar, [facility] [id number] [place] [address] Feb, [facility] [id number] [place] [address] Feb, [facility] [address] [id number] [place] [address] January, [facility] [id number] [place] [address] January, [facility] [id number] [place] [address] January, [facility] [address] [id number] [address] January, Neuropathic pain of chest 353.8 [facility] [address] [address] Dec, [facility] [address] [id number] [address] Dec, [facility] [address] [address] Nov, [facility] [address] [id number] [place] [address] Nov, [facility] [id number] [address] Nov, [facility] [id number] [address] Nov, [facility] [id number] [address] Nov, [facility] [place] [facility] [address] [id number] [place] [address] Nov, [facility] [place] [facility] [address] [id number] [place] [address] Oct, [facility] [place] [facility] [address] [id number] [place] [address] Oct, [facility] [place] [facility] [address] [id number] [place] [address] Oct, [facility] [place] [facility] [address] [id number] [place] [address] Oct, [facility] [place] [facility] [address] [id number] [place] [address] Oct, [facility] [place] [facility] [address] [id number] [place] [address] Oct, [facility] [place] [facility] [address] [id number] [place] [address] Sep, [facility] [place] [facility] [address] [facility] [id number] [place] [address] Sep, [facility] [place] [facility] [address] [id number] [place] [address] Sep, [facility] [place] [facility] [address] [id number] [place] [address] Sep, [facility] [place] [facility] [address] [id number] [place] [address] Aug, [facility] [place] [facility] [address] [id number] [place] [address] Aug, [facility] [place] [facility] [address] [id number] [place] [address] Aug, [facility] [place] [facility] [address] [id number] [place] [address] Aug, [facility] [place] [facility] [address] [id number] [place] [address] Aug, [facility] [place] [facility] [address] [id number] [place] [address] Aug, [facility] [place] [facility] [address] [id number] [place] [address] Aug, [facility] [place] [facility] [address] [id number] [place] [address] Aug, [facility] [place] [facility] [address] [id number] [place] [address] Aug, [facility] [place] [facility] [address] [id number] [place] [address] Aug, [facility] [place] [facility] [address] [id number] [place] [address] Jul, [facility] [place] [facility] [address] [id number] [place] [address] Jul, [facility] [place] [facility] [address] [id number] [place] [address] Jul, [facility] [place] [facility] [address] [id number] [place] [address] Jul, [facility] [place] [facility] [address] [id number] [place] [address] Jun, [facility] [place] [facility] [address] [id number] [place] [address] Jun, [facility] [place] [facility] [address] [id number] [place] [address] Jun, [facility] [place] [facility] [address] [id number] [place] [address] Jun, [facility] [place] [facility] [address] [id number] [place] [address] May, [facility] [place] [facility] [address] [id number] [place] [address] May, [facility] [address] [id number] [place] [address] May, [facility] [address] [id number] [place] [address] May, [facility] [address] [id number] [place] [address] Apr, [facility] [address] [id number] [place] [address] Apr, [facility] [address] [id number] [place] [address] Feb, [facility] [address] [id number] [place] [address] January, [facility] [address] [id number] [place] [address] January, [facility] [address] [id number] [place] [address] January, [facility] [address] [id number] [place] [address] January, [facility] [address] [id number] [place] [address] January, [facility] [address] [id number] [place] [address] January, [facility] [address] [id number] [place] [address] Dec, [facility] [place] [facility] [address] [id number] [place] [address] Dec, [facility] [place] [facility] [address] [id number] [place] [address] Dec, [facility] [place] [facility] [address] [id number] [place] [address] Dec, [facility] [place] [facility] [address] [id number] [place] [address] Dec, [facility] [place] [facility] [address] [id number] [place] [address] Dec, [facility] [place] [facility] [address] [id number] [place] [address] Dec, [facility] [place] [facility] [address] [id number] [place] [address] Dec, [facility] [place] [facility] [address] [id number] [place] [address] Nov, [facility] [place] [facility] [address] [id number] [place] [address] Nov, [facility] [place] [facility] [address] [id number] [place] [address] Nov, [facility] [place] [facility] [address] [id number] [place] [address] Nov, [facility] [place] [facility] [address] [id number] [place] [address] Nov, [facility] [place] [facility] [address] [id number] [place] [address] Nov, [facility] [place] [facility] [address] [id number] [place] [address] Nov, [facility] [place] [facility] [address] [id number] [place] [address] Oct, [facility] [place] [facility] [address] [id number] [place] [address] Oct, [facility] [place] [facility] [address] [id number] [place] [address] Oct, [facility] [place] [facility] [address] [id number] [place] [address] Oct, [facility] [place] [facility] [address] [id number] [place] [address] Sep, [facility] [place] [facility] [address] [id number] [place] [address] Sep, [facility] [place] [facility] [address] [id number] [place] [address] Sep, [facility] [place] [facility] [address] [id number] [place] [address] Sep, [facility] [place] [facility] [address] [id number] [place] [address] Aug, [facility] [place] [facility] [address] [id number] [place] [address] Aug, [facility] [place] [facility] [address] [id number] [place] [address] Jul, [facility] [place] [facility] [address] [id number] [place] [address] Jul, [facility] [place] [facility] [address] [id number] [place] [address] Jun, [facility] [place] [facility] [address] [id number] [place] [address] Jun, [facility] [place] [facility] [address] [facility] [id number] [place] [address] Jun, [facility] [place] [facility] [address] [id number] [place] [address] May, [facility] [place] [facility] [address] [id number] [place] [address] Apr, [facility] [place] [facility] [address] [id number] [place] [address] Apr, [facility] [place] [facility] [address] [id number] [place] [address] Mar, [facility] [place] [facility] [address] [id number] [place] [address] Feb, [facility] [place] [facility] [address] [id number] [place] [address] Feb, [facility] [address] [id number] [place] [address] January, [facility] [address] [id number] [place] [address] January, [facility] [address] [id number] [place] [address] Dec, [facility] [address] [id number] [place] [address] Dec, [facility] [address] [id number] [place] [address] Dec, [facility] [address] [id number] [place] [address] Dec, [facility] [address] [id number] [place] [address] Nov, [facility] [address] [id number] [place] [address] Nov, [facility] [address] [id number] [place] [address] Oct, [facility] [address] [id number] [place] [address] Oct, [facility] [address] [id number] [place] [address] Oct, [facility] [address] [id number] [place] [address] Sep, [facility] [place] [facility] [address] [id number] [place] [address] Sep, [facility] [place] [facility] [address] [id number] [place] [address] Sep, [facility] [address] [id number] [place] [address] Sep, [facility] [place] [facility] [address] [id number] [place] [address] Sep, [facility] [facility] [address] [id number] [place] [address] Aug, [facility] [place] [facility] [address] [id number] [place] [address] Aug, [facility] [place] [facility] [address] [id number] [place] [address] Aug, [facility] [place] [facility] [address] [id number] [place] [address] Aug, [facility] [place] [facility] [address] [id number] [place] [address] Jul, [facility] [place] [facility] [address] [id number] [place] [address] Jul, [facility] [place] [facility] [address] [id number] [place] [address] Jul, [facility] [place] [facility] [address] [id number] [place] [address] Jul, [facility] [place] [facility] [address] [id number] [place] [address] Jun, [facility] [place] [facility] [address] [id number] [place] [address] Jun, [facility] [place] [facility] [address] [id number] [place] [address] Jun, [facility] [place] [facility] [address] [id number] [place] [address] Jun, [facility] [place] [facility] [address] [id number] [place] [address] Jun, [facility] [place] [facility] [address] [id number] [place] [address] May, [facility] [place] [facility] [address] [id number] [place] [address] 13 May, 2011 [facility] [place] [facility] [address] [id number] [place] [address] 12 May, 2011 [facility] [place] [facility] [address] [id number] [place] [address] 11 May, 2011 [facility] [place] [facility] [address] [id number] [place] [address] 10 May, 2011 [facility] [place] [facility] [address] [id number] [place] [address] 06 May, 2011 [facility] [address] [id number] [place] [address] 05 May, 2011 [facility] [facility] [address] [id number] [place] [address] 30 Apr, 2012 [facility] [place] [facility] [address] [id number] [place] [address] Apr, [facility] [address] [id number] [place] [address] Apr, [facility] [address] [id number] [place] [address] Apr, [facility] [address] [id number] [place] [address] Apr, [facility] [address] [id number] [place] [address] Apr, [facility] [place] [facility] [address] [id number] [place] [address] Apr, [facility] [address] [id number] [place] [address] Apr, [facility] [address] [id number] [place] [address] Mar, [facility] [place] [facility] [address] [id number] [place] [address] Mar, [facility] [address] [id number] [address] Mar, [facility] [id number] [place] [address] Feb, [facility] [address] [id number] [address] January, [facility] [id number] [place] [address] January, [facility] [id number] [place] [address] January, [facility] [id number] [place] [address] Dec, [facility] [id number] [place] [address] Dec, [facility] [id number] [place] [address] Dec, [facility] [id number] [place] [address] Dec, [facility] [id number] [place] [address] Dec, [facility] [id number] [address] Dec, IMMUNIZATIONS No Known Immunizations SOCIAL HISTORY Never Assessed REASON FOR VISIT Controlled Med Refill PLAN OF CARE VITAL SIGNS MEDICATIONS Medication Instructions Dosage Frequency Start Date End Date Duration Status Hydrocodone-Acetaminophen 7.5-325 MG Orally, 5 times per day 2 tablet Jun, 30 days Active RESULTS No Results PROCEDURES No Known [...] 04/02/2012 Surgical History appendectomy age 10 at [facility] Surgical History cholecystectomy- Geovanny Gonzalez 2007 Surgical History coronary artery bypass graft LAD 02/2012 Surgical History heart cath x2 after bypass, pt has 5 stents Hospitalization History Chest pain, dizziness, renal insuff, heat cath showed CAD ([facility]) 01/03/2012 Hospitalization History CABG ([facility]) Dr. Banks 02/2012
--- OUTSIDE RECORDS SUMMARY | 2019-05-03 09:36 | XMS REPORT ---
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 Active 3778063499739 Problem Anemia, unspecified type D64.9 Active 000651645 Problem Vertigo R42 Active 414343000 Problem Mixed hyperlipidemia E78.2 Active 868786251 Problem Iron deficiency anemia, unspecified iron deficiency anemia type D50.9 Active 28777438 ALLERGIES No Information ENCOUNTERS Encounter Location Date Diagnosis [place] [id number] [place] [address] Jun, [place] [address] [place] [id number] [place] [address] Jun, Encounter for immunization Z23 [facility] [address] [place] [id number] [place] [address] Jun, Chest wall pain R07.89 [facility] [address] [place] [id number] [place] [address] Jun, Encounter for immunization Z23 [facility] [address] [place] [id number] [place] [address] May, [place] [address] [place] [id number] [place] [address] May, Medicare annual wellness visit, initial Z00.00 ; Chest wall pain R07.89 ; Mixed hyperlipidemia E78.2 ; Coronary artery disease involving crow coronary artery 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 angina pectoris I25.10 ; History of smoking Z87.891 and Chronic kidney disease N18.9 [facility] [id number] [place] [address] May, Chest wall pain R07.89 [place] [address] [place] [id number] [place] [address] Apr, Chest wall pain R07.89 [place] [address] [place] [id number] [place] [address] Apr, [place] [address] [place] [id number] [place] [address] Apr, Chest wall pain R07.89 ; Chronic kidney disease N18.9 ; Iron deficiency anemia, unspecified iron deficiency anemia type D50.9 ; Chronic fatigue R53.82 ; Coronary artery disease involving crow coronary artery 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 angina pectoris I25.10 and Anemia, unspecified type D64.9 [place] [address] [place] [id number] [place] [address] Apr, Chest wall pain R07.89 [place] [address] [place] [id number] [place] [address] Mar, Chest wall pain R07.89 [place] [address] [place] [id number] [place] [address] Feb, Chest wall pain R07.89 [place] [address] [place] [id number] [place] [address] January, Chest wall pain R07.89 [place] [address] [place] [id number] [place] [address] Dec, Chest wall pain R07.89 ; Coronary artery disease involving crow coronary artery 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 angina pectoris I25.10 and Vertigo R42 [place] [address] [place] [id number] [place] [address] Dec, Chest wall pain R07.89 [facility] [address] [facility] [id number] [place] [address] Nov, Chest wall pain R07.89 [facility] [address] [place] [id number] [place] [address] Oct, Chest wall pain R07.89 [facility] [address] [place] [id number] [place] [address] Sep, Chest wall pain R07.89 and Pleurodynia R07.81 [facility] [address] [place] [id number] [place] [address] Sep, [facility] [address] [place] [id number] [place] [address] Sep, Chest wall pain R07.89 and Sore throat J02.9 [facility] [address] [place] [id number] [place] [address] Sep, [facility] [address] [place] [id number] [place] [address] Sep, Sore throat J02.9 and Acute nasopharyngitis J00 [facility] [id number] [place] [address] Sep, [facility] [id number] [place] [address] Aug, Chest wall pain R07.89 [facility] [address] [place] [id number] [place] [address] Jul, Chest wall pain R07.89 [facility] [address] [place] [id number] [place] [address] Jul, [facility] [id number] [place] [address] Jul, Chest wall pain R07.89 [facility] [address] [place] [id number] [place] [address] Jul, Chest wall pain R07.89 ; Chronic fatigue R53.82 ; Anemia, unspecified type D64.9 ; Vertigo R42 and Coronary artery disease involving crow coronary artery 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 angina pectoris I25.10 [facility] [id number] [place] [address] Jun, Chest wall pain R07.89 [facility] [address] [place] [id number] [place] [address] Apr, Chest wall pain R07.89 [facility] [address] [place] [id number] [place] [address] Apr, [facility] [address] [place] [id number] [place] [address] Apr, Dental abscess K04.7 [facility] [address] [place] [id number] [place] [address] Apr, [facility] [address] [place] [id number] [place] [address] Apr, Chest wall pain R07.89 [facility] [address] [place] [id number] [place] [address] Mar, Chest wall pain R07.89 [facility] [address] [place] [id number] [place] [address] Feb, Chest wall pain R07.89 ; Lateral epicondylitis of right elbow M77.11 and Mixed hyperlipidemia E78.2 [facility] [address] [place] [id number] [place] [address] Feb, Chest wall pain R07.89 [facility] [address] [place] [id number] [place] [address] January, [facility] [address] [place] [id number] [place] [address] January, Chest wall pain R07.89 [facility] [address] [place] [id number] [place] [address] Dec, Chest wall pain R07.89 [facility] [address] [place] [id number] [place] [address] Nov, [facility] [address] [place] [id number] [place] [address] Nov, Hypokalemia E87.6 [facility] [address] [place] [id number] [place] [address] Nov, Hypokalemia E87.6 and Iron deficiency anemia, unspecified iron deficiency anemia type D50.9 [facility] [address] [place] [id number] [place] [address] Nov, [facility] [address] [place] [id number] [place] [address] Nov, Nausea R11.0 and Hypovolemia E86.1 [facility] [address] [place] [id number] [place] [address] Nov, [facility] [address] [place] [id number] [place] [address] Nov, [facility] [address] [place] [id number] [place] [address] Nov, Chest wall pain R07.89 [facility] [address] [place] [id number] [place] [address] Nov, Bronchitis J40 [facility] [id number] [place] [address] Oct, Chest wall pain R07.89 [facility] [address] [place] [id number] [place] [address] Sep, Chest wall pain R07.89 [facility] [address] [place] [id number] [place] [address] Aug, Chest wall pain R07.89 [facility] [address] [place] [id number] [place] [address] Aug, Chest pain on breathing R07.1 [place] [address] [address] Jul, [place] [address] [address] Jun, [place] [address] [address] May, Chest wall pain R07.89 ; Iron deficiency anemia, unspecified iron deficiency anemia type D50.9 ; Chronic kidney disease N18.9 and Encounter for immunization Z23 [place] [address] [address] May, [place] [address] [address] Apr, [place] [address] [address] Mar, [place] [address] [address] Mar, [place] [address] [place] [id number] [place] [address] Feb, [place] [address] [place] [id number] [place] [address] Feb, Iron deficiency anemia, unspecified iron deficiency anemia type D50.9 [facility] [address] [place] [id number] [place] [address] Feb, Dehydration E86.0 ; Diarrhea, unspecified type R19.7 ; Dizziness R42 and Other specified hypotension I95.89 [facility] [address] [place] [id number] [place] [address] Feb, Anemia, unspecified type D64.9 [facility] [address] [address] January, Anemia, unspecified type D64.9 [place] [address] [place] [id number] [place] [address] January, Paresthesia R20.2 [facility] [address] [address] January, Chest wall pain R07.89 [place] [address] [address] Dec, Insomnia G47.00 [place] [address] [address] Dec, Chest pain on breathing R07.1 [place] [address] [address] Nov, Chest pain on breathing R07.1 [place] [address] [address] Oct, [place] [address] [address] Oct, [place] [address] [address] Oct, Low back pain M54.5 and Chest wall pain R07.89 [place] [address] [address] Oct, Pleurodynia R07.81 [place] [address] [address] Sep, Pleurodynia R07.81 and Other nerve root and plexus disorders G54.8 [place] [address] [address] Aug, Chronic kidney disease N18.9 ; Encounter for immunization Z23 ; Chest wall pain R07.89 ; Urinary frequency R35.0 and Vertigo R42 [place] [address] [address] Aug, [facility] [address] [facility] [id number] [address] Jul, [facility] [address] [facility] [id number] [address] Jul, [facility] [address] [facility] [id number] [place] [address] Jun, [facility] [address] [facility] [id number] [place] [address] Jun, [facility] [address] [facility] [id number] [address] May, [facility] [address] [facility] [id number] [place] [address] May, [facility] [address] [facility] [id number] [place] [address] May, [facility] [address] [facility] [id number] [place] [address] May, Coronary atherosclerosis of unspecified type of vessel, crow or graft 414.00 [facility] [address] [address] Apr, [facility] [address] [facility] [id number] [place] [address] Apr, [facility] [address] [facility] [id number] [place] [address] Apr, [facility] [address] [facility] [id number] [place] [address] Apr, [facility] [address] [facility] [id number] [place] [address] Apr, [facility] [address] [facility] [id number] [place] [address] Apr, Coronary atherosclerosis of unspecified type of vessel, crow or graft 414.00 and Left-sided chest wall pain 786.52 [facility] [address] [id number] [place] [address] Mar, [facility] [place] [facility] [address] [id number] [place] [address] Mar, [facility] [place] [facility] [address] [id number] [place] [address] Feb, [facility] [place] [facility] [address] [id number] [place] [address] Feb, [facility] [place] [facility] [address] [id number] [place] [address] January, [facility] [place] [facility] [address] [id number] [place] [address] January, [facility] [address] [facility] [id number] [place] [address] January, [facility] [address] [facility] [id number] [place] [address] January, Neuropathic pain of chest 353.8 [facility] [address] [id number] [place] [address] Dec, [facility] [address] [facility] [id number] [place] [address] Dec, [facility] [place] [facility] [address] [id number] [place] [address] Nov, [facility] [place] [facility] [address] [id number] [place] [address] Nov, [facility] [place] [facility] [address] [id number] [place] [address] Nov, [facility] [place] [facility] [address] [id number] [place] [address] Nov, [facility] [place] [facility] [address] [facility] [id number] [place] [address] Nov, [facility] [place] [facility] [address] [id number] [place] [address] Nov, [facility] [place] [facility] [address] [id number] [place] [address] Oct, [facility] [place] [facility] [address] [id number] [place] [address] Oct, [facility] [place] [facility] [address] [id number] [place] [address] Oct, 2014 [facility] [place] [facility] [address] [id number] [place] [address] Oct, [facility] [place] [facility] [address] [id number] [place] [address] Oct, [facility] [place] [facility] [address] [id number] [place] [address] Oct, [facility] [place] [facility] [address] [facility] [id number] [place] [address] Sep, [facility] [place] [facility] [address] [id number] [place] [address] Sep, [facility] [place] [facility] [address] [place] [id number] [place] [address] Sep, [facility] [place] [facility] [address] [facility] [id number] [place] [address] Sep, [facility] [place] [facility] [address] [id number] [place] [address] Aug, [facility] [place] [facility] [address] [id number] [place] [address] Aug, [facility] [place] [facility] [address] [id number] [place] [address] Aug, [facility] [place] [facility] [address] [id number] [place] [address] Aug, [facility] [place] [facility] [address] [id number] [place] [address] Aug, [facility] [place] [facility] [address] [id number] [place] [address] Aug, [facility] [place] [facility] [address] [id number] [place] [address] Aug, [facility] [place] [facility] [address] [id number] [place] [address] Aug, [facility] [place] [facility] [address] [id number] [place] [address] Aug, [facility] [place] [facility] [address] [id number] [place] [address] Aug, [facility] [place] [facility] [address] [id number] [place] [address] Jul, [facility] [place] [facility] [address] [id number] [place] [address] Jul, [facility] [place] [facility] [address] [id number] [place] [address] Jul, [facility] [place] [facility] [address] [id number] [place] [address] Jul, [facility] [place] [facility] [address] [id number] [place] [address] Jun, [facility] [place] [facility] [address] [id number] [place] [address] Jun, [facility] [place] [facility] [address] [id number] [place] [address] Jun, [facility] [place] [facility] [address] [id number] [place] [address] Jun, [facility] [place] [facility] [address] [id number] [place] [address] May, [facility] [place] [facility] [address] [id number] [place] [address] May, [facility] [place] [facility] [address] [id number] [place] [address] May, [facility] [place] [facility] [address] [id number] [place] [address] May, [facility] [place] [facility] [address] [id number] [place] [address] Apr, [facility] [place] [facility] [address] [id number] [place] [address] Apr, [facility] [place] [facility] [address] [id number] [place] [address] Feb, [facility] [place] [facility] [address] [id number] [place] [address] January, [facility] [place] [facility] [address] [id number] [place] [address] January, [facility] [place] [facility] [address] [id number] [place] [address] January, [facility] [place] [facility] [address] [id number] [place] [address] January, [facility] [place] [facility] [address] [id number] [place] [address] January, [facility] [place] [facility] [address] [id number] [place] [address] January, [facility] [place] [facility] [address] [id number] [place] [address] Dec, [facility] [place] [facility] [address] [id number] [place] [address] Dec, [facility] [place] [facility] [address] [id number] [place] [address] Dec, [facility] [place] [facility] [address] [id number] [place] [address] Dec, [facility] [place] [facility] [address] [id number] [place] [address] Dec, [facility] [place] [facility] [address] [id number] [place] [address] Dec, [facility] [place] [facility] [address] [id number] [place] [address] Dec, [facility] [place] [facility] [address] [id number] [place] [address] Dec, [facility] [place] [facility] [address] [id number] [place] [address] Nov, [facility] [place] [facility] [address] [id number] [place] [address] Nov, [facility] [place] [facility] [address] [id number] [place] [address] Nov, [facility] [place] [facility] [address] [id number] [place] [address] Nov, [facility] [place] [facility] [address] [id number] [place] [address] Nov, [facility] [place] [facility] [address] [id number] [place] [address] Nov, [facility] [place] [facility] [address] [id number] [place] [address] Nov, [facility] [place] [facility] [address] [id number] [place] [address] Oct, [facility] [place] [facility] [address] [id number] [place] [address] Oct, [facility] [place] [facility] [address] [id number] [place] [address] Oct, [facility] [place] [facility] [address] [id number] [place] [address] Oct, [facility] [place] [facility] [address] [id number] [place] [address] Sep, [facility] [place] [facility] [address] [id number] [place] [address] Sep, [facility] [place] [facility] [address] [id number] [place] [address] Sep, [facility] [place] [facility] [address] [id number] [place] [address] Sep, [facility] [place] [facility] [address] [id number] [place] [address] Aug, [facility] [place] [facility] [address] [id number] [place] [address] Aug, [facility] [place] [facility] [address] [id number] [place] [address] Jul, [facility] [place] [facility] [address] [id number] [place] [address] Jul, [facility] [place] [facility] [address] [id number] [place] [address] Jun, [facility] [place] [facility] [address] [id number] [place] [address] Jun, [facility] [place] [facility] [address] [id number] [place] [address] Jun, [facility] [place] [facility] [address] [id number] [place] [address] May, [facility] [place] [facility] [address] [id number] [place] [address] Apr, [facility] [place] [facility] [address] [id number] [place] [address] Apr, [facility] [place] [facility] [address] [id number] [place] [address] Mar, [facility] [place] [facility] [address] [id number] [place] [address] Feb, [facility] [place] [facility] [address] [id number] [place] [address] Feb, [facility] [place] [facility] [address] [id number] [place] [address] January, [facility] [address] [id number] [place] [address] January, [facility] [address] [id number] [place] [address] Dec, [facility] [address] [id number] [place] [address] Dec, [facility] [address] [id number] [place] [address] Dec, [facility] [address] [id number] [place] [address] Dec, [facility] [address] [id number] [place] [address] Nov, [facility] [address] [id number] [place] [address] Nov, [facility] [address] [id number] [place] [address] Oct, [facility] [address] [id number] [place] [address] Oct, [facility] [address] [id number] [place] [address] Oct, [facility] [address] [id number] [place] [address] Sep, [facility] [address] [id number] [place] [address] Sep, [facility] [address] [id number] [place] [address] Sep, [facility] [address] [id number] [place] [address] Sep, [facility] [address] [id number] [place] [address] Sep, [facility] [place] [facility] [address] [id number] [place] [address] Aug, [facility] [place] [facility] [address] [id number] [place] [address] Aug, [facility] [place] [facility] [address] [id number] [place] [address] Aug, [facility] [place] [facility] [address] [id number] [place] [address] Aug, [facility] [place] [facility] [address] [id number] [place] [address] Jul, [facility] [place] [facility] [address] [id number] [place] [address] Jul, [facility] [place] [facility] [address] [id number] [place] [address] Jul, [facility] [place] [facility] [address] [id number] [address] Jul, [facility] [place] [facility] [address] [id number] [place] [address] Jun, [facility] [place] [facility] [address] [id number] [address] Jun, [facility] [place] [facility] [address] [id number] [address] Jun, [facility] [place] [facility] [address] [id number] [address] Jun, [facility] [place] [facility] [address] [id number] [place] [address] Jun, [facility] [place] [facility] [address] [id number] [address] 24 May, 2012 [facility] [place] [facility] [address] [id number] [place] [address] 13 May, 2012 [facility] [place] [facility] [address] [address] [id number] [place] [address] 12 May, 2011 [facility] [place] [facility] [address] [id number] [place] [address] 11 May, 2011 [facility] [place] [facility] [address] [id number] [place] [address] 10 May, 2011 [facility] [place] [facility] [address] [id number] [place] [address] 06 May, 2012 [facility] [place] [facility] [address] [id number] [place] [address] 05 May, 2012 [facility] [place] [facility] [address] [id number] [place] [address] 30 Apr, 2012 [facility] [place] [facility] [address] [id number] [place] [address] Apr, [facility] [place] [facility] [address] [id number] [place] [address] Apr, [facility] [place] [facility] [address] [id number] [place] [address] Apr, [facility] [place] [facility] [address] [id number] [place] [address] Apr, [facility] [place] [facility] [address] [id number] [place] [address] Apr, [facility] [place] [facility] [address] [id number] [place] [address] Apr, [facility] [place] [facility] [address] [id number] [place] [address] Apr, [facility] [place] [facility] [address] [id number] [place] [address] Mar, [facility] [place] [facility] [address] [id number] [place] [address] Mar, [facility] [place] [facility] [address] [id number] [place] [address] Mar, [facility] [place] [facility] [id number] [address] Feb, [facility] [id number] [address] January, [facility] [address] [address] January, [facility] [id number] [place] [address] January, [facility] [address] [address] Dec, [facility] [id number] [place] [address] Dec, [facility] [id number] [place] [address] Dec, [facility] [id number] [place] [address] Dec, [facility] [address] [address] Dec, [facility] [address] [address] Dec, IMMUNIZATIONS No Known Immunizations SOCIAL HISTORY Never Assessed REASON FOR VISIT Referral PLAN OF CARE VITAL SIGNS MEDICATIONS Unknown [...] Surgical History appendectomy age 10 at [facility] Surgical History cholecystectomy-[facility] [facility] 2007 Surgical History coronary artery bypass graft LAD 02/2012 Surgical History heart cath x2 after bypass, pt has 5 stents Hospitalization History Chest pain, dizziness, renal insuff, heat cath showed CAD ([facility]) 01/03/2012 Hospitalization History CABG ([facility]) Dr. Banks 02/2012
--- OUTSIDE RECORDS SUMMARY | 2019-05-03 09:37 | XMS REPORT ---
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 Active [id number] Problem Anemia, unspecified type D64.9 Active 885369349 Problem Vertigo R42 Active 791616513 Problem Mixed hyperlipidemia E78.2 Active 275474000 Problem Iron deficiency anemia, unspecified iron deficiency anemia type D50.9 Active 62712487 ALLERGIES No Information ENCOUNTERS Encounter Location Date Diagnosis [place] [address] [address] Jun, Encounter for immunization Z23 [place] [address] [address] Jun, Chest wall pain R07.89 [place] [address] [address] Jun, Encounter for immunization Z23 [place] [address] [place] [id number] [place] [address] May, [place] [address] [address] 11 May, 2018 Medicare annual wellness visit, initial Z00.00 ; Chest wall pain R07.89 ; Mixed hyperlipidemia E78.2 ; Coronary artery disease involving creek coronary artery of creek heart without angina pectoris I25.10 ; History of smoking Z87.891 and Chronic kidney disease N18.9 [facility] [address] [place] [address] May, Chest wall pain R07.89 [place] [address] [place] [address] Apr, Chest wall pain R07.89 [place] [address] [place] [id number] [place] [address] Apr, [place] [address] [place] [id number] [place] [address] Apr, Chest wall pain R07.89 ; Chronic kidney disease N18.9 ; Iron deficiency anemia, unspecified iron deficiency anemia type D50.9 ; Chronic fatigue R53.82 ; Coronary artery disease involving creek coronary artery of creek heart without angina pectoris I25.10 and Anemia, unspecified type D64.9 [place] [address] [place] [id number] [place] [address] Apr, Chest wall pain R07.89 [place] [address] [place] [id number] [place] [address] Mar, Chest wall pain R07.89 [place] [address] [place] [address] Feb, Chest wall pain R07.89 [place] [address] [place] [address] January, Chest wall pain R07.89 [place] [address] [place] [address] Dec, Chest wall pain R07.89 ; Coronary artery disease involving creek coronary artery of creek heart without angina pectoris I25.10 and Vertigo R42 [facility] [address] [place] [address] Dec, Chest wall pain R07.89 [place] [address] [place] [address] Nov, Chest wall pain R07.89 [facility] [address] [place] [id number] [address] Oct, Chest wall pain R07.89 [facility] [address] [place] [id number] [place] [address] Sep, Chest wall pain R07.89 and Pleurodynia R07.81 [facility] [address] [place] [id number] [place] [address] Sep, [facility] [address] [place] [address] Sep, Chest wall pain R07.89 and Sore throat J02.9 [facility] [address] [place] [id number] [place] [address] Sep, [facility] [address] [place] [id number] [place] [address] Sep, Sore throat J02.9 and Acute nasopharyngitis J00 [facility] [address] [place] [id number] [place] [address] Sep, [facility] [address] [place] [id number] [place] [address] Aug, Chest wall pain R07.89 [facility] [address] [place] [id number] [place] [address] Jul, Chest wall pain R07.89 [facility] [address] [address] Jul, [facility] [address] [place] [id number] [place] [address] Jul, Chest wall pain R07.89 [facility] [address] [place] [address] Jul, Chest wall pain R07.89 ; Chronic fatigue R53.82 ; Anemia, unspecified type D64.9 ; Vertigo R42 and Coronary artery disease involving creek coronary artery of creek heart without angina pectoris I25.10 [facility] [address] [place] [id number] [address] Jun, Chest wall pain R07.89 [facility] [address] [place] [id number] [address] Apr, Chest wall pain R07.89 [facility] [address] [place] [id number] [place] [address] Apr, [facility] [address] [place] [id number] [place] [address] Apr, Dental abscess K04.7 [facility] [address] [place] [id number] [place] [address] Apr, [facility] [address] [place] [id number] [place] [address] Apr, Chest wall pain R07.89 [facility] [address] [place] [id number] [place] [address] Mar, Chest wall pain R07.89 [facility] [address] [place] [id number] [place] [address] Feb, Chest wall pain R07.89 ; Lateral epicondylitis of right elbow M77.11 and Mixed hyperlipidemia E78.2 [facility] [address] [place] [id number] [place] [address] Feb, Chest wall pain R07.89 [facility] [address] [place] [id number] [place] [address] January, [facility] [address] [place] [id number] [place] [address] January, Chest wall pain R07.89 [facility] [address] [place] [id number] [place] [address] Dec, Chest wall pain R07.89 [facility] [address] [place] [id number] [place] [address] Nov, [facility] [address] [place] [id number] [place] [address] 24 Nov, 2016 Hypokalemia E87.6 [facility] [address] [address] 23 Nov, 2016 Hypokalemia E87.6 and Iron deficiency anemia, unspecified iron deficiency anemia type D50.9 [facility] [address] [address] Nov, [facility] [address] [address] Nov, Nausea R11.0 and Hypovolemia E86.1 [facility] [address] [address] Nov, [facility] [address] [address] Nov, [facility] [address] [address] Nov, Chest wall pain R07.89 [facility] [address] [place] [id number] [place] [address] Nov, Bronchitis J40 [facility] [address] [place] [id number] [place] [address] Oct, Chest wall pain R07.89 [facility] [address] [place] [id number] [place] [address] Sep, Chest wall pain R07.89 [facility] [address] [address] Aug, Chest wall pain R07.89 [facility] [address] [place] [id number] [place] [address] Aug, Chest pain on breathing R07.1 [facility] [address] [place] [address] Jul, [facility] [address] [place] [id number] [place] [address] Jun, [facility] [address] [place] [id number] [place] [address] 16 May, 2016 Chest wall pain R07.89 ; Iron deficiency anemia, unspecified iron deficiency anemia type D50.9 ; Chronic kidney disease N18.9 and Encounter for immunization Z23 [facility] [address] [place] [id number] [place] [address] May, [facility] [address] [place] [id number] [place] [address] Apr, [facility] [address] [place] [id number] [place] [address] Mar, [place] [address] [address] Mar, [facility] [address] [place] [id number] [place] [address] Feb, [place] [address] [place] [id number] [place] [address] Feb, Iron deficiency anemia, unspecified iron deficiency anemia type D50.9 [facility] [address] [place] [id number] [place] [address] Feb, Dehydration E86.0 ; Diarrhea, unspecified type R19.7 ; Dizziness R42 and Other specified hypotension I95.89 [facility] [address] [place] [id number] [place] [address] Feb, Anemia, unspecified type D64.9 [place] [address] [place] [id number] [place] [address] January, Anemia, unspecified type D64.9 [place] [address] [place] [id number] [place] [address] 26 May, 2016 Paresthesia R20.2 [facility] [address] [place] [id number] [place] [address] January, Chest wall pain R07.89 [facility] [address] [address] Dec, Insomnia G47.00 [facility] [address] [address] Dec, Chest pain on breathing R07.1 [facility] [address] [address] Nov, Chest pain on breathing R07.1 [facility] [address] [address] Oct, [facility] [address] [address] Oct, [facility] [address] [address] Oct, Low back pain M54.5 and Chest wall pain R07.89 [place] [address] [address] Oct, Pleurodynia R07.81 [place] [address] [address] Sep, Pleurodynia R07.81 and Other nerve root and plexus disorders G54.8 [facility] [address] [address] Aug, Chronic kidney disease N18.9 ; Encounter for immunization Z23 ; Chest wall pain R07.89 ; Urinary frequency R35.0 and Vertigo R42 [facility] [address] [place] [id number] [place] [address] Aug, [facility] [address] [address] Jul, [facility] [address] [facility] [id number] [address] Jul, [facility] [address] [facility] [id number] [address] Jun, [facility] [address] [facility] [id number] [place] [address] Jun, [facility] [address] [address] May, [facility] [address] [facility] [id number] [place] [address] May, [facility] [address] [place] [address] May, [facility] [address] [address] May, Coronary atherosclerosis of unspecified type of vessel, creek or graft 414.00 [facility] [address] [address] Apr, [facility] [address] [address] Apr, [facility] [address] [address] Apr, [facility] [address] [address] Apr, [facility] [address] [facility] [id number] [address] Apr, [facility] [address] [place] [id number] [address] Apr, Coronary atherosclerosis of unspecified type of vessel, creek or graft 414.00 and Left-sided chest wall pain 786.52 [facility] [address] [place] [id number] [address] Mar, [facility] [address] [address] Mar, [facility] [address] [id number] [place] [address] Feb, [facility] [address] [id number] [place] [address] Feb, [facility] [address] [facility] [id number] [place] [address] January, [facility] [address] [id number] [place] [address] January, [facility] [address] [id number] [place] [address] January, [facility] [address] [facility] [id number] [place] [address] January, Neuropathic pain of chest 353.8 [facility] [address] [place] [id number] [place] [address] Dec, [facility] [address] [facility] [id number] [place] [address] Dec, [facility] [address] [facility] [id number] [place] [address] Nov, [facility] [address] [facility] [id number] [place] [address] Nov, [facility] [place] [facility] [address] [id number] [place] [address] Nov, [facility] [address] [id number] [place] [address] Nov, [facility] [place] [facility] [address] [id number] [place] [address] Nov, [facility] [place] [facility] [address] [facility] [id number] [place] [address] Nov, [facility] [address] [facility] [id number] [place] [address] Oct, [facility] [place] [facility] [address] [id number] [place] [address] Oct, [facility] [place] [facility] [address] [id number] [place] [address] Oct, [facility] [place] [facility] [address] [id number] [place] [address] Oct, [facility] [place] [facility] [address] [id number] [place] [address] Oct, [facility] [place] [facility] [address] [id number] [place] [address] Oct, [facility] [place] [facility] [address] [id number] [place] [address] Sep, [facility] [place] [facility] [address] [id number] [place] [address] Sep, [facility] [place] [facility] [address] [id number] [place] [address] Sep, [facility] [place] [facility] [address] [id number] [place] [address] Sep, [facility] [place] [facility] [address] [id number] [place] [address] Aug, [facility] [place] [facility] [address] [id number] [address] Aug, [facility] [place] [facility] [address] [id number] [address] Aug, [facility] [place] [facility] [address] [id number] [place] [address] Aug, [facility] [place] [facility] [address] [id number] [place] [address] Aug, [facility] [place] [facility] [address] [id number] [place] [address] Aug, [facility] [place] [facility] [address] [id number] [place] [address] Aug, [facility] [place] [facility] [address] [id number] [place] [address] Aug, [facility] [place] [facility] [address] [id number] [place] [address] Aug, [facility] [place] [facility] [address] [id number] [place] [address] Aug, [facility] [place] [facility] [address] [id number] [place] [address] Jul, [facility] [place] [facility] [address] [id number] [place] [address] Jul, [facility] [place] [facility] [address] [id number] [place] [address] Jul, [facility] [place] [facility] [address] [id number] [place] [address] Jul, [facility] [place] [facility] [address] [id number] [place] [address] Jun, [facility] [place] [facility] [address] [id number] [place] [address] Jun, [facility] [place] [facility] [address] [id number] [place] [address] Jun, [facility] [place] [facility] [address] [id number] [place] [address] Jun, [facility] [place] [facility] [address] [id number] [place] [address] May, [facility] [place] [facility] [address] [id number] [place] [address] May, [facility] [place] [facility] [address] [id number] [place] [address] May, [facility] [place] [facility] [address] [id number] [place] [address] May, [facility] [place] [facility] [address] [id number] [place] [address] Apr, [facility] [place] [facility] [address] [id number] [place] [address] Apr, [facility] [place] [facility] [address] [id number] [place] [address] Feb, [facility] [place] [facility] [address] [id number] [place] [address] January, [facility] [place] [facility] [address] [id number] [place] [address] January, [facility] [place] [facility] [address] [id number] [place] [address] January, [facility] [place] [facility] [address] [id number] [place] [address] January, [facility] [place] [facility] [address] [id number] [place] [address] January, [facility] [place] [facility] [address] [id number] [place] [address] January, [facility] [place] [facility] [address] [id number] [place] [address] Dec, [facility] [place] [facility] [address] [id number] [place] [address] Dec, [facility] [place] [facility] [address] [id number] [place] [address] Dec, [facility] [place] [facility] [address] [id number] [place] [address] Dec, [facility] [place] [facility] [address] [id number] [place] [address] Dec, [facility] [place] [facility] [address] [id number] [place] [address] Dec, [facility] [place] [facility] [address] [id number] [place] [address] Dec, [facility] [place] [facility] [address] [id number] [place] [address] Dec, [facility] [place] [facility] [address] [id number] [place] [address] Nov, [facility] [place] [facility] [address] [id number] [place] [address] Nov, [facility] [place] [facility] [address] [id number] [place] [address] Nov, [facility] [place] [facility] [address] [id number] [place] [address] Nov, [facility] [place] [facility] [address] [id number] [place] [address] Nov, [facility] [place] [facility] [address] [id number] [place] [address] Nov, [facility] [place] [facility] [address] [id number] [place] [address] Nov, [facility] [place] [facility] [address] [id number] [place] [address] Oct, [facility] [place] [facility] [address] [id number] [place] [address] Oct, [facility] [place] [facility] [address] [id number] [place] [address] Oct, [facility] [place] [facility] [address] [id number] [place] [address] Oct, [facility] [place] [facility] [address] [id number] [place] [address] Sep, [facility] [place] [facility] [address] [id number] [place] [address] Sep, [facility] [place] [facility] [address] [id number] [place] [address] Sep, [facility] [place] [facility] [address] [id number] [place] [address] Sep, [facility] [place] [facility] [address] [id number] [place] [address] Aug, [facility] [place] [facility] [address] [id number] [place] [address] Aug, [facility] [place] [facility] [address] [id number] [place] [address] Jul, [facility] [place] [facility] [address] [id number] [place] [address] Jul, [facility] [place] [facility] [address] [id number] [place] [address] Jun, [facility] [place] [facility] [address] [id number] [place] [address] Jun, [facility] [place] [facility] [address] [id number] [place] [address] Jun, [facility] [place] [facility] [address] [id number] [place] [address] May, [facility] [place] [facility] [address] [id number] [place] [address] Apr, [facility] [place] [facility] [address] [id number] [place] [address] Apr, [facility] [place] [facility] [address] [id number] [place] [address] Mar, [facility] [place] [facility] [address] [id number] [place] [address] Feb, [facility] [place] [facility] [address] [id number] [place] [address] Feb, [facility] [place] [facility] [address] [id number] [place] [address] January, [facility] [place] [facility] [address] [id number] [place] [address] January, [facility] [address] [id number] [place] [address] Dec, [facility] [place] [facility] [address] [id number] [place] [address] Dec, [facility] [place] [facility] [address] [id number] [place] [address] Dec, [facility] [place] [facility] [address] [id number] [place] [address] Dec, [facility] [place] [facility] [address] [id number] [place] [address] Nov, [facility] [place] [facility] [address] [id number] [place] [address] Nov, [facility] [place] [facility] [address] [id number] [place] [address] Oct, [facility] [place] [facility] [address] [id number] [place] [address] Oct, [facility] [place] [facility] [address] [id number] [place] [address] Oct, [facility] [place] [facility] [address] [id number] [place] [address] Sep, [facility] [place] [facility] [address] [id number] [place] [address] Sep, [facility] [place] [facility] [address] [id number] [place] [address] Sep, [facility] [place] [facility] [address] [id number] [place] [address] Sep, [facility] [place] [facility] [address] [id number] [place] [address] Sep, [facility] [place] [facility] [address] [id number] [place] [address] Aug, [facility] [place] [facility] [address] [id number] [place] [address] Aug, [facility] [address] [id number] [place] [address] Aug, [facility] [place] [facility] [address] [id number] [place] [address] Aug, [facility] [place] [facility] [address] [id number] [place] [address] Jul, [facility] [place] [facility] [address] [id number] [place] [address] Jul, [facility] [place] [facility] [address] [id number] [place] [address] Jul, [facility] [place] [facility] [address] [id number] [place] [address] Jul, [facility] [place] [facility] [address] [facility] [id number] [place] [address] Jun, [facility] [place] [facility] [address] [id number] [place] [address] Jun, [facility] [place] [facility] [address] [id number] [place] [address] Jun, [facility] [place] [facility] [address] [facility] [id number] [place] [address] Jun, [facility] [place] [facility] [address] [id number] [place] [address] Jun, [facility] [place] [facility] [address] [id number] [place] [address] 24 May, 2012 [facility] [place] [facility] [address] [id number] [place] [address] 13 Sep2011 [facility] [place] [facility] [address] [id number] [place] [address] 12 May, 2012 [facility] [place] [facility] [address] [id number] [place] [address] 11 May, 2012 [facility] [place] [facility] [address] [id number] [place] [address] 10 May, 2012 [facility] [place] [facility] [address] [id number] [place] [address] 06 May, 2012 [facility] [place] [facility] [address] [id number] [place] [address] 05 May, 2012 [facility] [place] [facility] [address] [id number] [place] [address] Apr, [facility] [place] [facility] [address] [id number] [place] [address] Apr, [facility] [place] [facility] [address] [id number] [place] [address] Apr, [facility] [place] [facility] [address] [id number] [place] [address] Apr, [facility] [place] [facility] [address] [id number] [place] [address] Apr, [facility] [place] [facility] [address] [id number] [place] [address] Apr, [facility] [place] [facility] [address] [id number] [place] [address] Apr, [facility] [place] [facility] [address] [id number] [place] [address] Apr, [facility] [place] [facility] [address] [id number] [place] [address] Mar, [facility] [place] [facility] [address] [id number] [place] [address] Mar, [facility] [place] [facility] [address] [id number] [place] [address] Mar, [facility] [place] [facility] [address] [id number] [place] [address] Feb, [facility] [place] [facility] [address] [id number] [address] January, [facility] [id number] [address] January, [facility] [id number] [address] January, [facility] [id number] [address] Dec, [facility] [id number] [address] Dec, [facility] [id number] [address] Dec, [facility] [id number] [address] Dec, [facility] [id number] [address] Dec, [facility] [id number] [address] Dec, IMMUNIZATIONS No Known Immunizations SOCIAL HISTORY [...] 04/02/2012 Surgical History appendectomy age 10 at [facility] Surgical History cholecystectomy-[facility] [facility] 2007 Surgical History coronary artery bypass graft LAD 02/2012 Surgical History heart cath x2 after bypass, pt has 5 stents Hospitalization History Chest pain, dizziness, renal insuff, heat cath showed CAD ([facility]) 01/03/2012 Hospitalization History CABG ([facility]) Dr. Banks 02/2012
--- OUTSIDE RECORDS SUMMARY | 2019-05-03 09:37 | XMS REPORT ---
Author Author BELEM FUENTES Organization [facility] Address [address] [place] [address] Care Team Providers Care King Maker Name Role Phone BELEM FUENTES Unavailable PROBLEMS Type Condition ICD9-CM Code ZDB21-HI Code Onset Dates Condition Status SNOMED Code Problem Chronic kidney disease N18.9 Active 304747060 Problem Chest wall pain R07.89 Active 176086853 Problem Chronic fatigue R53.82 Active 24854731 Problem Coronary artery disease involving [place] coronary artery of [place] heart without angina pectoris I25.10 Active 2034907491600 Problem Anemia, unspecified type D64.9 Active 086865509 Problem Vertigo R42 Active 293832244 Problem Mixed hyperlipidemia E78.2 Active 847801407 Problem Iron deficiency anemia, unspecified iron deficiency anemia type D50.9 Active 53569565 ALLERGIES No Information ENCOUNTERS Encounter Location Date Diagnosis [place] [address] [address] Jun, Encounter for immunization Z23 [place] [address] [address] Jun, Chest wall pain R07.89 [place] [address] [address] Jun, Encounter for immunization Z23 [place] [address] [place] [id number] [place] [address] May, [place] [address] [address] 11 May, 2018 Medicare annual wellness visit, initial Z00.00 ; Chest wall pain R07.89 ; Mixed hyperlipidemia E78.2 ; Coronary artery disease involving [place] coronary artery of [place] heart without angina pectoris I25.10 ; History of smoking Z87.891 and Chronic kidney disease N18.9 [facility] [id number] [place] [address] May, Chest wall pain R07.89 [place] [id number] [place] [address] Apr, Chest wall pain R07.89 [place] [address] [place] [id number] [place] [address] Apr, [place] [address] [place] [id number] [place] [address] Apr, Chest wall pain R07.89 ; Chronic kidney disease N18.9 ; Iron deficiency anemia, unspecified iron deficiency anemia type D50.9 ; Chronic fatigue R53.82 ; Coronary artery disease involving [place] coronary artery of [place] heart without angina pectoris I25.10 and Anemia, unspecified type D64.9 [place] [address] [place] [id number] [place] [address] Apr, Chest wall pain R07.89 [place] [address] [place] [id number] [place] [address] Mar, Chest wall pain R07.89 [place] [id number] [place] [address] Feb, Chest wall pain R07.89 [place] [id number] [place] [address] January, Chest wall pain R07.89 [place] [id number] [place] [address] Dec, Chest wall pain R07.89 ; Coronary artery disease involving [place] coronary artery of [place] heart without angina pectoris I25.10 and Vertigo R42 [facility] [address] [place] [address] Dec, Chest wall pain R07.89 [place] [address] [place] [address] Nov, Chest wall pain R07.89 [facility] [address] [place] [id number] [address] Oct, Chest wall pain R07.89 [facility] [address] [place] [id number] [place] [address] Sep, Chest wall pain R07.89 and Pleurodynia R07.81 [facility] [address] [place] [id number] [place] [address] Sep, [facility] [id number] [place] [address] Sep, Chest wall pain R07.89 and Sore throat J02.9 [facility] [address] [place] [id number] [place] [address] Sep, [facility] [address] [place] [id number] [place] [address] Sep, Sore throat J02.9 and Acute nasopharyngitis J00 [facility] [address] [place] [id number] [place] [address] Sep, [facility] [address] [place] [id number] [place] [address] Aug, Chest wall pain R07.89 [facility] [address] [place] [id number] [place] [address] Jul, Chest wall pain R07.89 [facility] [address] [address] Jul, [facility] [address] [place] [id number] [place] [address] Jul, Chest wall pain R07.89 [facility] [address] [place] [address] Jul, Chest wall pain R07.89 ; Chronic fatigue R53.82 ; Anemia, unspecified type D64.9 ; Vertigo R42 and Coronary artery disease involving [place] coronary artery of [place] heart without angina pectoris I25.10 [facility] [address] [place] [id number] [address] Jun, Chest wall pain R07.89 [facility] [address] [place] [id number] [address] Apr, Chest wall pain R07.89 [facility] [address] [place] [id number] [place] [address] Apr, [facility] [address] [place] [id number] [place] [address] Apr, Dental abscess K04.7 [facility] [address] [place] [id number] [place] [address] Apr, [facility] [address] [place] [id number] [place] [address] Apr, Chest wall pain R07.89 [facility] [address] [place] [id number] [place] [address] Mar, Chest wall pain R07.89 [facility] [address] [place] [id number] [place] [address] Feb, Chest wall pain R07.89 ; Lateral epicondylitis of right elbow M77.11 and Mixed hyperlipidemia E78.2 [facility] [address] [place] [id number] [place] [address] Feb, Chest wall pain R07.89 [facility] [address] [place] [id number] [place] [address] January, [facility] [address] [place] [id number] [place] [address] January, Chest wall pain R07.89 [facility] [address] [place] [id number] [place] [address] Dec, Chest wall pain R07.89 [facility] [address] [place] [id number] [place] [address] Nov, [facility] [address] [place] [id number] [place] [address] 24 Nov, 2016 Hypokalemia E87.6 [facility] [address] [address] 23 Nov, 2016 Hypokalemia E87.6 and Iron deficiency anemia, unspecified iron deficiency anemia type D50.9 [facility] [address] [address] Nov, [facility] [address] [address] Nov, Nausea R11.0 and Hypovolemia E86.1 [facility] [address] [address] Nov, [facility] [address] [address] Nov, [facility] [address] [address] Nov, Chest wall pain R07.89 [facility] [address] [place] [id number] [place] [address] Nov, Bronchitis J40 [facility] [address] [place] [id number] [place] [address] Oct, Chest wall pain R07.89 [facility] [address] [place] [id number] [place] [address] Sep, Chest wall pain R07.89 [facility] [address] [address] Aug, Chest wall pain R07.89 [facility] [address] [place] [id number] [place] [address] Aug, Chest pain on breathing R07.1 [facility] [address] [place] [address] Jul, [facility] [address] [place] [id number] [place] [address] Jun, [facility] [address] [place] [id number] [place] [address] 16 May, 2016 Chest wall pain R07.89 ; Iron deficiency anemia, unspecified iron deficiency anemia type D50.9 ; Chronic kidney disease N18.9 and Encounter for immunization Z23 [facility] [address] [place] [id number] [place] [address] May, [facility] [address] [place] [id number] [place] [address] Apr, [facility] [address] [place] [id number] [place] [address] Mar, [place] [address] [address] Mar, [facility] [address] [place] [id number] [place] [address] Feb, [place] [address] [place] [id number] [place] [address] Feb, Iron deficiency anemia, unspecified iron deficiency anemia type D50.9 [facility] [address] [place] [id number] [place] [address] Feb, Dehydration E86.0 ; Diarrhea, unspecified type R19.7 ; Dizziness R42 and Other specified hypotension I95.89 [facility] [address] [place] [id number] [place] [address] Feb, Anemia, unspecified type D64.9 [place] [address] [place] [id number] [place] [address] January, Anemia, unspecified type D64.9 [place] [address] [place] [id number] [place] [address] 26 May, 2016 Paresthesia R20.2 [facility] [address] [place] [id number] [place] [address] January, Chest wall pain R07.89 [facility] [address] [address] Dec, Insomnia G47.00 [facility] [address] [address] Dec, Chest pain on breathing R07.1 [facility] [address] [address] Nov, Chest pain on breathing R07.1 [facility] [address] [address] Oct, [facility] [address] [address] Oct, [facility] [address] [address] Oct, Low back pain M54.5 and Chest wall pain R07.89 [place] [address] [address] Oct, Pleurodynia R07.81 [place] [address] [address] Sep, Pleurodynia R07.81 and Other nerve root and plexus disorders G54.8 [facility] [address] [address] Aug, Chronic kidney disease N18.9 ; Encounter for immunization Z23 ; Chest wall pain R07.89 ; Urinary frequency R35.0 and Vertigo R42 [facility] [address] [place] [id number] [place] [address] Aug, [facility] [address] [address] Jul, [facility] [address] [facility] [id number] [address] Jul, [facility] [address] [facility] [id number], [place] [address] Jun, [facility] [address] [facility] [id number], [place] [address] Jun, [facility] [address] [address] May, [facility] [address] [facility] [id number] [address] May, [facility] [address] [place] [address] May, [facility] [address] [address] May, Coronary atherosclerosis of unspecified type of vessel, [place] or graft 414.00 [facility] [address] [address] Apr, [facility] [address], [place] [address] Apr, [facility] [address], [place] [address] Apr, [facility] [address] [address] Apr, [facility] [address] [facility] [id number], [place] [address] Apr, [facility] [address] [place] [id number] [address] Apr, Coronary atherosclerosis of unspecified type of vessel, [place] or graft 414.00 and Left-sided chest wall pain 786.52 [facility] [address] [place] [id number] [address] Mar, [facility] [address] [place] [address] Mar, [facility] [address] [id number] [place] [address] Feb, [facility] [address] [id number] [place] [address] Feb, [facility] [address] [facility] [id number] [place] [address] January, [facility] [address] [id number] [place] [address] January, [facility] [address] [id number] [place] [address] January, [facility] [address] [facility] [id number] [place] [address] January, Neuropathic pain of chest 353.8 [facility] [address] [place] [id number] [place] [address] Dec, [facility] [address] [facility] [id number] [place] [address] Dec, [facility] [address] [facility] [id number] [place] [address] Nov, [facility] [address] [facility] [id number] [place] [address] Nov, [facility] [place] [facility] [address] [id number] [place] [address] Nov, [facility] [address] [id number] [place] [address] Nov, [facility] [place] [facility] [address] [id number] [place] [address] Nov, [facility] [place] [facility] [address] [facility] [id number] [place] [address] Nov, [facility] [address] [facility] [id number] [place] [address] Oct, [facility] [place] [facility] [address] [id number] [place] [address] Oct, [facility] [place] [facility] [address] [id number] [place] [address] Oct, [facility] [place] [facility] [address] [id number] [place] [address] Oct, [facility] [place] [facility] [address] [id number] [place] [address] Oct, [facility] [place] [facility] [address] [id number] [place] [address] Oct, [facility] [place] [facility] [address] [id number] [place] [address] Sep, [facility] [place] [facility] [address] [id number] [place] [address] Sep, [facility] [place] [facility] [address] [id number] [place] [address] Sep, [facility] [place] [facility] [address] [id number] [place] [address] Sep, [facility] [place] [facility] [address] [id number] [place] [address] Aug, [facility] [place] [facility] [address] [id number], [place] [address] Aug, [facility] [place] [facility] [address] [id number], [place] [address] Aug, [facility] [place] [facility] [address] [id number] [place] [address] Aug, [facility] [place] [facility] [address] [id number] [place] [address] Aug, [facility] [place] [facility] [address] [id number] [place] [address] Aug, [facility] [place] [facility] [address] [id number] [place] [address] Aug, [facility] [place] [facility] [address] [id number] [place] [address] Aug, [facility] [place] [facility] [address] [id number] [place] [address] Aug, [facility] [place] [facility] [address] [id number] [place] [address] Aug, [facility] [place] [facility] [address] [id number] [place] [address] Jul, [facility] [place] [facility] [address] [id number] [place] [address] Jul, [facility] [place] [facility] [address] [id number] [place] [address] Jul, [facility] [place] [facility] [address] [id number] [place] [address] Jul, [facility] [place] [facility] [address] [id number] [place] [address] Jun, [facility] [place] [facility] [address] [id number] [place] [address] Jun, [facility] [place] [facility] [address] [id number] [place] [address] Jun, [facility] [place] [facility] [address] [id number] [place] [address] Jun, [facility] [place] [facility] [address] [id number] [place] [address] May, [facility] [place] [facility] [address] [id number] [place] [address] May, [facility] [place] [facility] [address] [id number] [place] [address] May, [facility] [place] [facility] [address] [id number] [place] [address] May, [facility] [place] [facility] [address] [id number] [place] [address] Apr, [facility] [place] [facility] [address] [id number] [place] [address] Apr, [facility] [place] [facility] [address] [id number] [place] [address] Feb, [facility] [place] [facility] [address] [id number] [place] [address] January, [facility] [place] [facility] [address] [id number] [place] [address] January, [facility] [place] [facility] [address] [id number] [place] [address] January, [facility] [place] [facility] [address] [id number] [place] [address] January, [facility] [place] [facility] [address] [id number] [place] [address] January, [facility] [place] [facility] [address] [id number] [place] [address] January, [facility] [place] [facility] [address] [id number] [place] [address] Dec, [facility] [place] [facility] [address] [id number] [place] [address] Dec, [facility] [place] [facility] [address] [id number] [place] [address] Dec, [facility] [place] [facility] [address] [id number] [place] [address] Dec, [facility] [place] [facility] [address] [id number] [place] [address] Dec, [facility] [place] [facility] [address] [id number] [place] [address] Dec, [facility] [place] [facility] [address] [id number] [place] [address] Dec, [facility] [place] [facility] [address] [id number] [place] [address] Dec, [facility] [place] [facility] [address] [id number] [place] [address] Nov, [facility] [place] [facility] [address] [id number] [place] [address] Nov, [facility] [place] [facility] [address] [id number] [place] [address] Nov, [facility] [place] [facility] [address] [id number] [place] [address] Nov, [facility] [place] [facility] [address] [id number] [place] [address] Nov, [facility] [place] [facility] [address] [id number] [place] [address] Nov, [facility] [place] [facility] [address] [id number] [place] [address] Nov, [facility] [place] [facility] [address] [id number] [place] [address] Oct, [facility] [place] [facility] [address] [id number] [place] [address] Oct, [facility] [place] [facility] [address] [id number] [place] [address] Oct, [facility] [place] [facility] [address] [id number] [place] [address] Oct, [facility] [place] [facility] [address] [id number] [place] [address] Sep, [facility] [place] [facility] [address] [id number] [place] [address] Sep, [facility] [place] [facility] [address] [id number] [place] [address] Sep, [facility] [place] [facility] [address] [id number] [place] [address] Sep, [facility] [place] [facility] [address] [id number] [place] [address] Aug, [facility] [place] [facility] [address] [id number] [place] [address] Aug, [facility] [place] [facility] [address] [id number] [place] [address] Jul, [facility] [place] [facility] [address] [id number] [place] [address] Jul, [facility] [place] [facility] [address] [id number] [place] [address] Jun, [facility] [place] [facility] [address] [id number] [place] [address] Jun, [facility] [place] [facility] [address] [id number] [place] [address] Jun, [facility] [place] [facility] [address] [id number] [place] [address] May, [facility] [place] [facility] [address] [id number] [place] [address] Apr, [facility] [place] [facility] [address] [id number] [place] [address] Apr, [facility] [place] [facility] [address] [id number] [place] [address] Mar, [facility] [place] [facility] [address] [id number] [place] [address] Feb, [facility] [place] [facility] [address] [id number] [place] [address] Feb, [facility] [place] [facility] [address] [id number] [place] [address] January, [facility] [place] [facility] [address] [id number] [place] [address] January, [facility] [address] [id number] [place] [address] Dec, [facility] [place] [facility] [address] [id number] [place] [address] Dec, [facility] [place] [facility] [address] [id number] [place] [address] Dec, [facility] [place] [facility] [address] [id number] [place] [address] Dec, [facility] [place] [facility] [address] [id number] [place] [address] Nov, [facility] [place] [facility] [address] [id number] [place] [address] Nov, [facility] [place] [facility] [address] [id number] [place] [address] Oct, [facility] [place] [facility] [address] [id number] [place] [address] Oct, [facility] [place] [facility] [address] [id number] [place] [address] Oct, [facility] [place] [facility] [address] [id number] [place] [address] Sep, [facility] [place] [facility] [address] [id number] [place] [address] Sep, [facility] [place] [facility] [address] [id number] [place] [address] Sep, [facility] [place] [facility] [address] [id number] [place] [address] Sep, [facility] [place] [facility] [address] [id number] [place] [address] Sep, [facility] [place] [facility] [address] [id number] [place] [address] Aug, [facility] [place] [facility] [address] [id number] [place] [address] Aug, [facility] [address] [id number] [place] [address] Aug, [facility] [place] [facility] [address] [id number] [place] [address] Aug, [facility] [place] [facility] [address] [id number] [place] [address] Jul, [facility] [place] [facility] [address] [id number] [place] [address] Jul, [facility] [place] [facility] [address] [id number] [place] [address] Jul, [facility] [place] [facility] [address] [id number] [place] [address] Jul, [facility] [place] [facility] [address] [facility] [id number] [place] [address] Jun, [facility] [place] [facility] [address] [id number] [place] [address] Jun, [facility] [place] [facility] [address] [id number] [place] [address] Jun, [facility] [place] [facility] [address] [facility] [id number] [place] [address] Jun, [facility] [place] [facility] [address] [id number] [place] [address] Jun, [facility] [place] [facility] [address] [id number] [place] [address] 24 May, 2012 [facility] [place] [facility] [address] [id number] [place] [address] 13 Sep2011 [facility] [place] [facility] [address] [id number] [place] [address] 12 May, 2012 [facility] [place] [facility] [address] [id number] [place] [address] 11 May, 2012 [facility] [place] [facility] [address] [id number] [place] [address] 10 May, 2012 [facility] [place] [facility] [address] [id number] [place] [address] 06 May, 2012 [facility] [place] [facility] [address] [id number] [place] [address] 05 May, 2012 [facility] [place] [facility] [address] [id number] [place] [address] Apr, [facility] [place] [facility] [address] [id number] [place] [address] Apr, [facility] [place] [facility] [address] [id number] [place] [address] Apr, [facility] [place] [facility] [address] [id number] [place] [address] Apr, [facility] [place] [facility] [address] [id number] [place] [address] Apr, [facility] [place] [facility] [address] [id number] [place] [address] Apr, [facility] [place] [facility] [address] [id number] [place] [address] Apr, [facility] [place] [facility] [address] [id number] [place] [address] Apr, [facility] [place] [facility] [address] [id number] [place] [address] Mar, [facility] [place] [facility] [address] [id number] [place] [address] Mar, [facility] [place] [facility] [address] [id number] [place] [address] Mar, [facility] [place] [facility] [address] [id number] [place] [address] Feb, [facility] [place] [facility] [address] [id number], [place] [address] January, [facility] [address] [id number] [address] January, [facility] [address] [id number], [place] [address] January, [facility] [address] [id number], [place] [address] Dec, [facility] [id number], [place] [address] Dec, [facility] [address] [id number] [address] Dec, [facility] [id number], [place] [address] Dec, [facility] [id number], [place] [address] Dec, [facility] [address] [id number], [place] [address] Dec, IMMUNIZATIONS Vaccine Route Administration Date Status SHINGRIX IM Intramuscular Jul 06, 2018 Administered SOCIAL HISTORY Never Assessed REASON FOR VISIT Shingrix PLAN OF CARE Activity Details Follow Up 2 Months Reason: VITAL SIGNS MEDICATIONS Unknown Medications RESULTS No Results PROCEDURES Procedure Date Ordered Result Body Site SHINGRIX Jul 06, 2018 SINGLE IMMUNIZATION ADMIN Jul 06, 2018 INSTRUCTIONS MEDICATIONS ADMINISTERED No Known Medications MEDICAL [...] 04/02/2012 Surgical History appendectomy age 10 at [facility] Surgical History cholecystectomy-[facility] 2007 Surgical History coronary artery bypass graft LAD 02/2012 Surgical History heart cath x2 after bypass, pt has 5 stents Hospitalization History Chest pain, dizziness, renal insuff, heat cath showed CAD ([facility]) 01/03/2012 Hospitalization History CABG ([facility]) Dr. Banks 02/2012
--- OUTSIDE RECORDS SUMMARY | 2019-05-03 09:38 | XMS REPORT ---
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 Name Role Phone BELEM FUENTES Unavailable PROBLEMS Type Condition ICD9-CM Code HDK13-DM Code Onset Dates Condition Status SNOMED Code Problem Chronic kidney disease N18.9 Active 560104406 Problem Chest wall pain R07.89 Active 884717694 Problem Chronic fatigue R53.82 Active 91853542 Problem Coronary artery disease involving [place] coronary artery of [place] heart without angina pectoris I25.10 Active 4112084502900 Problem Anemia, unspecified type D64.9 Active 017269051 Problem Vertigo R42 Active 318661913 Problem Mixed hyperlipidemia E78.2 Active 026773672 Problem Iron deficiency anemia, unspecified iron deficiency anemia type D50.9 Active 65842012 ALLERGIES No Information ENCOUNTERS Encounter Location Date Diagnosis [place] [address] [address] 08 Jun, 2018 Chest wall pain R07.89 [place] [address] [place] [id number] [place] [address] 05 Jun, 2018 Encounter for immunization Z23 [place] [address] [place] [id number] [place] [address] 12 May, 2018 [place] [address] [place] [id number] [place] [address] 11 May, 2018 Medicare annual wellness visit, initial Z00.00 ; Chest wall pain R07.89 ; Mixed hyperlipidemia E78.2 ; Coronary artery disease involving [place] coronary artery of [place] heart without angina pectoris I25.10 ; History of smoking Z87.891 and Chronic kidney disease N18.9 [place] [address] [place] [id number] [place] [address] May, Chest wall pain R07.89 [facility] [address] [address] Apr, Chest wall pain R07.89 [facility] [id number] [place] [address] Apr, [facility] [address] [place] [id number] [place] [address] Apr, Chest wall pain R07.89 ; Chronic kidney disease N18.9 ; Iron deficiency anemia, unspecified iron deficiency anemia type D50.9 ; Chronic fatigue R53.82 ; Coronary artery disease involving [place] coronary artery of [place] heart without angina pectoris I25.10 and Anemia, unspecified type D64.9 [facility] [address] [place] [id number] [place] [address] Apr, Chest wall pain R07.89 [place] [address] [place] [id number] [place] [address] Mar, Chest wall pain R07.89 [facility] [address] [place] [id number] [place] [address] Feb, Chest wall pain R07.89 [facility] [address] [place] [id number] [place] [address] January, Chest wall pain R07.89 [facility] [id number] [place] [address] Dec, Chest wall pain R07.89 ; Coronary artery disease involving [place] coronary artery of [place] heart without angina pectoris I25.10 and Vertigo R42 [facility] [id number] [place] [address] Dec, Chest wall pain R07.89 [facility] [id number] [place] [address] Nov, Chest wall pain R07.89 [facility] [address] [place] [id number] [place] [address] Oct, Chest wall pain R07.89 [facility] [address] [place] [id number] [place] [address] Sep, Chest wall pain R07.89 and Pleurodynia R07.81 [facility] [address] [place] [id number] [place] [address] Sep, [facility] [address] [address] Sep, Chest wall pain R07.89 and Sore throat J02.9 [facility] [address] [place] [id number] [place] [address] Sep, [facility] [address] [address] Sep, Sore throat J02.9 and Acute nasopharyngitis J00 [place] [address] [place] [id number] [place] [address] Sep, [facility] [address] [place] [id number] [place] [address] Aug, Chest wall pain R07.89 [facility] [address] [place] [id number] [place] [address] Jul, Chest wall pain R07.89 [facility] [address] [place] [id number] [place] [address] Jul, [facility] [address] [place] [id number] [place] [address] Jul, Chest wall pain R07.89 [facility] [address] [place] [id number] [place] [address] Jul, Chest wall pain R07.89 ; Chronic fatigue R53.82 ; Anemia, unspecified type D64.9 ; Vertigo R42 and Coronary artery disease involving [place] coronary artery of [place] heart without angina pectoris I25.10 [facility] [address] [place] [id number] [place] [address] Jun, Chest wall pain R07.89 [facility] [id number] [place] [address] Apr, Chest wall pain R07.89 [facility] [address] [place] [id number] [place] [address] Apr, [facility] [address] [place] [id number] [place] [address] Apr, Dental abscess K04.7 [facility] [address] [place] [id number] [place] [address] Apr, [facility] [address] [place] [id number] [place] [address] Apr, Chest wall pain R07.89 [facility] [address] [place] [id number] [place] [address] Mar, Chest wall pain R07.89 [facility] [address] [place] [address] Feb, Chest wall pain R07.89 ; Lateral epicondylitis of right elbow M77.11 and Mixed hyperlipidemia E78.2 [facility] [address] [place] [address] Feb, Chest wall pain R07.89 [facility] [address] [place] [id number] [place] [address] January, [facility] [address] [place] [address] January, Chest wall pain R07.89 [facility] [address] [place] [id number] [place] [address] Dec, Chest wall pain R07.89 [facility] [address] [place] [address] Nov, [facility] [address] [place] [id number] [place] [address] Nov, Hypokalemia E87.6 [facility] [address] [place] [id number] [place] [address] Nov, Hypokalemia E87.6 and Iron deficiency anemia, unspecified iron deficiency anemia type D50.9 [facility] [address] [place] [id number] [place] [address] Nov, [facility] [address] [place] [id number] [place] [address] Nov, Nausea R11.0 and Hypovolemia E86.1 [facility] [address] [address] Nov, [facility] [address] [place] [id number] [place] [address] Nov, [facility] [address] [place] [id number] [place] [address] Nov, Chest wall pain R07.89 [facility] [address] [place] [id number] [place] [address] Nov, Bronchitis J40 [facility] [address] [place] [id number] [place] [address] Oct, Chest wall pain R07.89 [facility] [address] [place] [id number] [place] [address] Sep, Chest wall pain R07.89 [facility] [address] [place] [id number] [place] [address] Aug, Chest wall pain R07.89 [facility] [address] [place] [id number] [place] [address] Aug, Chest pain on breathing R07.1 [facility] [address] [place] [id number] [place] [address] Jul, [facility] [address] [place] [id number] [place] [address] Jun, [facility] [address] [place] [address] May, Chest wall pain R07.89 ; Iron deficiency anemia, unspecified iron deficiency anemia type D50.9 ; Chronic kidney disease N18.9 and Encounter for immunization Z23 [facility] [address] [place] [id number] [place] [address] May, [facility] [address] [place] [id number] [place] [address] Apr, [facility] [address] [place] [id number] [place] [address] Mar, [facility] [address] [place] [id number] [place] [address] Mar, [facility] [address] [place] [id number] [place] [address] Feb, [facility] [address] [place] [id number] [place] [address] Feb, Iron deficiency anemia, unspecified iron deficiency anemia type D50.9 [facility] [address] [place] [id number] [place] [address] Feb, Dehydration E86.0 ; Diarrhea, unspecified type R19.7 ; Dizziness R42 and Other specified hypotension I95.89 [facility] [address] [place] [id number] [place] [address] Feb, Anemia, unspecified type D64.9 [facility] [address] [place] [id number] [place] [address] January, Anemia, unspecified type D64.9 [place] [address] [place] [id number] [place] [address] January, Paresthesia R20.2 [facility] [address] [place] [id number] [place] [address] January, Chest wall pain R07.89 [facility] [address] [place] [id number] [place] [address] Dec, Insomnia G47.00 [facility] [address] [address] Dec, Chest pain on breathing R07.1 [facility] [address] [place] [id number] [place] [address] Nov, Chest pain on breathing R07.1 [facility] [address] [place] [id number] [place] [address] Oct, [facility] [address] [address] Oct, [facility] [address] [place] [id number] [place] [address] Oct, Low back pain M54.5 and Chest wall pain R07.89 [facility] [address] [place] [id number] [place] [address] Oct, Pleurodynia R07.81 [facility] [address] [address] Sep, Pleurodynia R07.81 and Other nerve root and plexus disorders G54.8 [facility] [address] [place] [id number] [place] [address] Aug, Chronic kidney disease N18.9 ; Encounter for immunization Z23 ; Chest wall pain R07.89 ; Urinary frequency R35.0 and Vertigo R42 [facility] [address] [place] [id number] [place] [address] Aug, [facility] [address] [address] Jul, [facility] [address] [place] [id number] [place] [address] Jul, [facility] [address] [place] [address] [address] Jun, [facility] [address] [address] Jun, [facility] [address] [address] May, [facility] [address] [address] May, [facility] [address] [place] [id number] [address] May, [facility] [address] [place] [address] May, Coronary atherosclerosis of unspecified type of vessel, [place] owing[place] or graft 414.00 [facility] [address] [address] Apr, [facility] [address] [place] [address] Apr, [facility] [address] [address] Apr, [facility] [address] [address] Apr, [facility] [address] [address] Apr, [facility] [address] [address] Apr, Coronary atherosclerosis of unspecified type of vessel, [place] or graft 414.00 and Left-sided chest wall pain 786.52 [facility] [address] [address] Mar, [facility] [address] [address] Mar, [facility] [address] [address] Feb, [facility] [address] [facility] [id number] [place] [address] Feb, [facility] [address] [facility] [id number], [place] [address] January, [facility] [address] [place] [id number] [place] [address] January, [facility] [address] [facility] [id number] [place] [address] January, [facility] [address] [facility] [id number] [place] [address] January, Neuropathic pain of chest 353.8 [facility] [address] [facility] [id number], [place] [address] Dec, [facility] [address] [place] [address] Dec, [facility] [address] [facility] [id number], [place] [address] Nov, [facility] [address] [place] [id number] [address] Nov, [facility] [address] [place] [id number] [address] Nov, [facility] [address] [facility] [id number], [place] [address] Nov, [facility] [address] [facility] [id number][place] [address] Nov, [facility] [address] [facility] [id number], [place] [address] Nov, [facility] [address] [facility] [id number], [place] [address] Oct, [facility] [address] [place] [id number] [address] Oct, [facility] [place] [facility] [address] [id number] [place] [address] Oct, [facility] [place] [facility] [address] [id number] [place] [address] Oct, [facility] [place] [facility] [address] [id number] [place] [address] Oct, [facility] [place] [facility] [address] [id number] [place] [address] Oct, [facility] [place] [facility] [address] [id number] [place] [address] Sep, [facility] [place] [facility] [address] [id number] [place] [address] Sep, [facility] [place] [facility] [address] [id number] [place] [address] Sep, [facility] [place] [facility] [address] [id number] [place] [address] Sep, [facility] [place] [facility] [address] [id number] [place] [address] Aug, [facility] [place] [facility] [address] [id number] [place] [address] Aug, [facility] [place] [facility] [address] [id number] [place] [address] Aug, [facility] [place] [facility] [address] [id number] [place] [address] Aug, [facility] [place] [facility] [address] [id number] [place] [address] Aug, [facility] [place] [facility] [address] [id number] [place] [address] Aug, [facility] [place] [facility] [address] [id number] [place] [address] Aug, [facility] [place] [facility] [address] [id number], [place] [address] Aug, [facility] [place] [facility] [address] [id number] [place] [address] Aug, [facility] [place] [facility] [address] [id number] [place] [address] Aug, [facility] [place] [facility] [address] [id number] [place] [address] Jul, [facility] [place] [facility] [address] [id number] [place] [address] Jul, [facility] [place] [facility] [address] [id number] [place] [address] Jul, [facility] [place] [facility] [address] [id number] [place] [address] Jul, [facility] [place] [facility] [address] [id number] [place] [address] Jun, [facility] [place] [facility] [address] [id number] [place] [address] Jun, [facility] [place] [facility] [address] [id number] [place] [address] Jun, [facility] [place] [facility] [address] [id number] [place] [address] Jun, [facility] [place] [facility] [address] [id number] [place] [address] May, [facility] [place] [facility] [address] [id number] [place] [address] May, [facility] [place] [facility] [address] [id number] [place] [address] May, [facility] [place] [facility] [address] [id number] [place] [address] May, [facility] [place] [facility] [address] [id number] [place] [address] Apr, [facility] [place] [facility] [address] [id number] [place] [address] Apr, [facility] [address] [id number] [place] [address] Feb, [facility] [place] [facility] [address] [id number] [place] [address] January, [facility] [place] [facility] [address] [id number] [place] [address] January, [facility] [place] [facility] [address] [id number] [place] [address] January, [facility] [place] [facility] [address] [id number] [place] [address] January, [facility] [place] [facility] [address] [id number] [place] [address] January, [facility] [place] [facility] [address] [id number] [place] [address] January, [facility] [address] [id number] [place] [address] Dec, [facility] [place] [facility] [address] [id number] [place] [address] Dec, [facility] [place] [facility] [address] [id number] [place] [address] Dec, [facility] [place] [facility] [address] [id number] [place] [address] Dec, [facility] [place] [facility] [address] [id number] [place] [address] Dec, [facility] [place] [facility] [address] [id number] [place] [address] Dec, [facility] [place] [facility] [address] [id number] [place] [address] Dec, [facility] [place] [facility] [address] [id number] [place] [address] Dec, [facility] [place] [facility] [address] [id number] [place] [address] Nov, [facility] [place] [facility] [address] [id number] [place] [address] Nov, [facility] [place] [facility] [address] [id number] [place] [address] Nov, [facility] [place] [facility] [address] [id number] [place] [address] Nov, [facility] [place] [facility] [address] [id number] [place] [address] Nov, [facility] [place] [facility] [address] [id number] [place] [address] Nov, [facility] [place] [facility] [address] [id number] [place] [address] Nov, [facility] [place] [facility] [address] [id number] [place] [address] Oct, [facility] [place] [facility] [address] [id number] [place] [address] Oct, [facility] [place] [facility] [address] [id number] [place] [address] Oct, [facility] [place] [facility] [address] [id number] [place] [address] Oct, [facility] [place] [facility] [address] [id number] [place] [address] Sep, [facility] [place] [facility] [address] [id number] [place] [address] Sep, [facility] [place] [facility] [address] [id number] [place] [address] Sep, [facility] [place] [facility] [address] [id number] [place] [address] Sep, [facility] [place] [facility] [address] [id number] [place] [address] Aug, [facility] [address] [id number] [place] [address] Aug, [facility] [address] [id number] [place] [address] Jul, [facility] [address] [id number] [place] [address] Jul, [facility] [address] [id number] [place] [address] Jun, [facility] [address] [id number] [place] [address] Jun, [facility] [address] [id number] [place] [address] Jun, [facility] [address] [id number] [place] [address] May, [facility] [address] [id number] [place] [address] Apr, [facility] [address] [id number] [place] [address] Apr, [facility] [address] [id number] [place] [address] Mar, [facility] [address] [id number] [place] [address] Feb, [facility] [address] [id number] [place] [address] Feb, [facility] [place] [facility] [address] [id number] [place] [address] January, [facility] [place] [facility] [address] [id number] [place] [address] January, [facility] [address] [id number] [place] [address] Dec, [facility] [place] [facility] [address] [id number] [place] [address] Dec, [facility] [address] [id number] [place] [address] Dec, [facility] [address] [id number] [place] [address] Dec, [facility] [address] [id number] [place] [address] Nov, [facility] [address] [id number] [place] [address] Nov, [facility] [address] [id number] [place] [address] Oct, [facility] [address] [id number] [place] [address] Oct, [facility] [address] [id number] [place] [address] Oct, [facility] [address] [id number] [place] [address] Sep, [facility] [address] [id number] [place] [address] Sep, [facility] [address] [id number] [place] [address] Sep, [facility] [place] [facility] [address] [id number] [place] [address] Sep, [facility] [place] [facility] [address] [id number] [place] [address] Sep, [facility] [place] [facility] [address] [id number] [place] [address] Aug, [facility] [place] [facility] [address] [id number] [place] [address] Aug, [facility] [address] [id number] [place] [address] 14 Aug, 2012 [facility] [place] [facility] [address] [id number] [place] [address] 14 Aug, 2012 [facility] [place] [facility] [address] [id number] [place] [address] Jul, [facility] [place] [facility] [address] [id number] [place] [address] Jul, [facility] [place] [facility] [address] [id number] [place] [address] Jul, [facility] [place] [facility] [address] [id number] [place] [address], [place] [address] Jul, [facility] [facility] [address] [id number] [place] [address] Jun, [facility] [place] [facility] [id number] [place] [address] Jun, [facility] [place] [facility] [address] [id number] [place] [address] Jun, [facility] [place] [facility] [address] [id number] [place] [address] Jun, [facility] [place] [facility] [address] [facility] [id number] [place] [address] Jun, [facility] [place] [facility] [address] [id number] [place] [address] 24 Sep2011 [facility] [place] [facility] [address] [id number], [place] [address] 13 Sep2011 [facility] [place] [facility] [address] [id number] [place] [address] 12 Sep2011 [facility] [place] [facility] [address] [facility] [id number] [address] 11 Sep2011 [facility] [facility] [address] [facility] [id number] [address] 10 May, 2012 [facility] [place] [facility] [address] [id number] [place] [address] May, [facility] [place] [facility] [address] [id number] [place] [address] May, [facility] [place] [facility] [address] [id number] [place] [address] Apr, [facility] [place] [facility] [address] [id number] [place] [address] Apr, [facility] [place] [facility] [address] [id number] [place] [address] Apr, [facility] [place] [facility] [address] [id number] [place] [address] Apr, [facility] [place] [facility] [address] [id number] [place] [address] Apr, [facility] [place] [facility] [address] [id number] [place] [address] Apr, [facility] [place] [facility] [address] [id number] [place] [address] Apr, [facility] [place] [facility] [address] [id number] [place] [address] Apr, [facility] [place] [facility] [address] [id number] [place] [address] Mar, [facility] [place] [facility] [address] [id number] [place] [address] Mar, [facility] [place] [facility] [address] [id number] [place] [address] Mar, [facility] [facility] [address] [id number] [place] [address] Feb, [facility] [place] [facility] [address] [id number] [place] [address] January, [facility] [place] [facility] [address] [id number] [place] [address] January, [facility] [address] [facility] [id number] [address] January, [facility] [address] [facility] [id number], [place] [address] Dec, [facility] [address] [id number] [address] Dec, [facility] [address] [id number] [address] Dec, [facility] [address] [id number] [address] Dec, [facility] [address] [id number] [address] Dec, [facility] [address] [id number] [address] Dec, IMMUNIZATIONS Vaccine Route Administration Date Status FLULAVAL QUAD 0.5ML (6 MO & UP) 2017 IM Intramuscular Jun 29, 2018 Administered SOCIAL HISTORY Never Assessed REASON FOR VISIT Flu shot--[id number] PLAN OF CARE VITAL SIGNS MEDICATIONS Unknown Medications RESULTS No Results PROCEDURES Procedure Date Ordered Result Body Site FLULAVAL QUAD 0.5ML (6 MO AND UP) 2017Jun 29, 2018 SINGLE IMMUNIZATION ADMIN Jun 29, 2018 INSTRUCTIONS MEDICATIONS ADMINISTERED No Known Medications [...] 04/02/2012 Surgical History appendectomy age 10 at [facility] Surgical History cholecystectomy-[facility] 2007 Surgical History coronary artery bypass graft LAD 02/2012 Surgical History heart cath x2 after bypass, pt has 5 stents Hospitalization History Chest pain, dizziness, renal insuff, heat cath showed CAD ([facility]) 01/03/2012 Hospitalization History CABG ([facility]) Dr. Banks 02/2012
--- OUTSIDE RECORDS SUMMARY | 2019-05-03 09:39 | XMS REPORT ---
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 Active [id number] Problem Anemia, unspecified type D64.9 Active 600028264 Problem Vertigo R42 Active 895332402 Problem Mixed hyperlipidemia E78.2 Active 399639049 Problem Iron deficiency anemia, unspecified iron deficiency anemia type D50.9 Active 20549635 ALLERGIES No Information ENCOUNTERS Encounter Location Date Diagnosis [place] [id number] [place] [address] 12 May, 2018 [place] [id number] [place] [address] 11 May, 2018 Medicare annual wellness visit, initial Z00.00 ; Chest wall pain R07.89 ; Mixed hyperlipidemia E78.2 ; 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 angina pectoris I25.10 ; History of smoking Z87.891 and Chronic kidney disease N18.9 [facility] [id number] [place] [address] May, Chest wall pain R07.89 [facility] [address] [place] [address] [id number] [place] [address] Apr, Chest wall pain R07.89 [facility] [address] [address] [id number] [place] [address] Apr, [place] [address] [place] [id number] [address] Apr, Chest wall pain R07.89 ; Chronic kidney disease N18.9 ; Iron deficiency anemia, unspecified iron deficiency anemia type D50.9 ; Chronic fatigue R53.82 ; 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 angina pectoris I25.10 and Anemia, unspecified type D64.9 [place] [address] [place] [id number] [place] [address] Apr, Chest wall pain R07.89 [place] [address] [place] [id number] [place] [address] Mar, Chest wall pain R07.89 [place] [address] [place] [id number] [place] [address] Feb, Chest wall pain R07.89 [place] [address] [place] [id number] [place] [address] January, Chest wall pain R07.89 [place] [address] [place] [id number] [place] [address] Dec, Chest wall pain R07.89 ; 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 angina pectoris I25.10 and Vertigo R42 [place] [address] [place] [id number] [address] Dec, Chest wall pain R07.89 [place] [address] [place] [id number] [place] [address] Nov, Chest wall pain R07.89 [place] [address] [place] [id number] [place] [address] Oct, Chest wall pain R07.89 [place] [address] [place] [id number] [place] [address] Sep, Chest wall pain R07.89 and Pleurodynia R07.81 [place] [address] [place] [address] Sep, [facility] [address] [place] [address] [id number] [place] [address] Sep, Chest wall pain R07.89 and Sore throat J02.9 [facility] [address] [place] [address] [id number] [place] [address] Sep, [facility] [id number] [place] [address] Sep, Sore throat J02.9 and Acute nasopharyngitis J00 [facility] [address] [place] [id number] [place] [address] Sep, [facility] [address] [place] [address] [id number] [place] [address] Aug, Chest wall pain R07.89 [facility] [id number] [place] [address] Jul, Chest wall pain R07.89 [facility] [address] [place] [address] [id number] [place] [address] Jul, [facility] [address] [place] [id number] [place] [address] Jul, Chest wall pain R07.89 [facility] [id number] [place] [address] Jul, Chest wall pain R07.89 ; Chronic fatigue R53.82 ; Anemia, unspecified type D64.9 ; Vertigo R42 and 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 angina pectoris I25.10 [facility] [address] [id number] [place] [address] Jun, Chest wall pain R07.89 [facility] [address] [address] [id number] [place] [address] Apr, Chest wall pain R07.89 [facility] [address] [id number] [place] [address] Apr, [facility] [address] [address] [id number] [place] [address] Apr, Dental abscess K04.7 [facility] [address] [place] [address] [id number] [place] [address] Apr, [facility] [address] [address] [id number] [place] [address] Apr, Chest wall pain R07.89 [facility] [address] [address] [id number] [place] [address] Mar, Chest wall pain R07.89 [facility] [address] [place] [id number] [place] [address] 15 Feb, 2017 Chest wall pain R07.89 ; Lateral epicondylitis of right elbow M77.11 and Mixed hyperlipidemia E78.2 [facility] [address] [place] [id number] [place] [address] Feb, Chest wall pain R07.89 [facility] [id number] [place] [address] January, [facility] [address] [place] [id number] [place] [address] January, Chest wall pain R07.89 [facility] [address] [id number] [place] [address] Dec, Chest wall pain R07.89 [facility] [id number] [place] [address] Nov, [facility] [address] [place] [id number] [place] [address] Nov, Hypokalemia E87.6 [facility] [id number] [place] [address] Nov, Hypokalemia E87.6 and Iron deficiency anemia, unspecified iron deficiency anemia type D50.9 [facility] [address] [address] Nov, [facility] [address] [place] [address] [id number] [place] [address] Nov, Nausea R11.0 and Hypovolemia E86.1 [facility] [address] [place] [address] [id number] [place] [address] Nov, [facility] [address] [address] [id number] [place] [address] Nov, [facility] [address] [address] [id number] [place] [address] Nov, Chest wall pain R07.89 [facility] [address] [place] [address] [id number] [place] [address] Nov, Bronchitis J40 [facility] [address] [place] [id number] [place] [address] 09 Oct, 2016 Chest wall pain R07.89 [facility] [address] [address] [id number] [place] [address] Sep, Chest wall pain R07.89 [facility] [address] [id number] [place] [address] Aug, Chest wall pain R07.89 [facility] [address] [place] [address] Aug, Chest pain on breathing R07.1 [facility] [id number] [place] [address] 10 Jul, 2016 [facility] [address] [place] [id number] [place] [address] 07 Jun, 2016 [facility] [address] [place] [address] 16 May, 2016 Chest wall pain R07.89 ; Iron deficiency anemia, unspecified iron deficiency anemia type D50.9 ; Chronic kidney disease N18.9 and Encounter for immunization Z23 [facility] [address] [id number] [place] [address] May, [facility] [address] [id number] [place] [address] Apr, [facility] [address] [place] [id number] [place] [address] Mar, [facility] [address] [address] Mar, [facility] [address] [place] [id number] [place] [address] Feb, [place] [address] [address] Feb, Iron deficiency anemia, unspecified iron deficiency anemia type D50.9 [facility] [address] [address] Feb, Dehydration E86.0 ; Diarrhea, unspecified type R19.7 ; Dizziness R42 and Other specified hypotension I95.89 [place] [address] [place] [id number] [place] [address] Feb, Anemia, unspecified type D64.9 [place] [address] [place] [id number] [place] [address] January, Anemia, unspecified type D64.9 [place] [address] [place] [id number] [place] [address] January, Paresthesia R20.2 [place] [address] [place] [id number] [place] [address] January, Chest wall pain R07.89 [place] [address] [place] [id number] [place] [address] Dec, Insomnia G47.00 [place] [address] [place] [id number] [place] [address] Dec, Chest pain on breathing R07.1 [facility] [id number] [place] [address] Nov, Chest pain on breathing R07.1 [facility] [id number] [place] [address] Oct, [facility] [id number] [place] [address] Oct, [facility] [address] [address] Oct, Low back pain M54.5 and Chest wall pain R07.89 [facility] [address] [address] Oct, Pleurodynia R07.81 [facility] [address] [id number] [place] [address] Sep, Pleurodynia R07.81 and Other nerve root and plexus disorders G54.8 [facility] [id number] [place] [address] Aug, Chronic kidney disease N18.9 ; Encounter for immunization Z23 ; Chest wall pain R07.89 ; Urinary frequency R35.0 and Vertigo R42 [facility] [id number] [place] [address] Aug, [facility] [id number] [place] [address] Jul, [facility] [address] [id number] [place] [address] Jul, [facility] [id number] [place] [address] Jun, [facility] [id number] [place] [address] Jun, [facility] [id number] [place] [address] May, [facility] [address] [facility] [id number] [address] May, [facility] [address] [facility] [id number] [address] May, [facility] [id number] [address] May, Coronary atherosclerosis of unspecified type of vessel, quartz valley or graft 414.00 [facility] [address] [id number] [address] Apr, [facility] [id number] [place] [address] Apr, [facility] [address] [facility] [id number] [address] Apr, [facility] [address] [place] [address] Apr, [facility] [address] [id number] [address] Apr, [facility] [address] [address] Apr, Coronary atherosclerosis of unspecified type of vessel, quartz valley or graft 414.00 and Left-sided chest wall pain 786.52 [facility] [address] [facility] [id number], [place] [address] Mar, [facility] [address] [facility] [id number], [place] [address] Mar, [facility] [address] [facility] [id number], [place] [address] Feb, [facility] [address] [facility] [id number], [place] [address] Feb, [facility] [id number] [address] January, [facility] [address] [id number] [place] [address] January, [facility] [place] [facility] [address] [id number] [place] [address] January, [facility] [place] [facility] [address] [id number] [place] [address] January, Neuropathic pain of chest 353.8 [facility] [place] [facility] [address] [id number] [place] [address] Dec, [facility] [place] [facility] [address] [id number] [place] [address] Dec, [facility] [place] [facility] [address] [id number] [place] [address] Nov, [facility] [place] [facility] [address] [id number] [place] [address] Nov, [facility] [place] [facility] [address] [id number] [place] [address] Nov, [facility] [place] [facility] [address] [id number] [place] [address] Nov, [facility] [place] [facility] [address] [facility] [id number] [place] [address] Nov, [facility] [place] [facility] [address] [id number] [place] [address] Nov, [facility] [place] [facility] [address] [id number], [place] [address] Oct, [facility] [place] [facility] [address] [id number] [place] [address] Oct, [facility] [place] [facility] [address] [id number] [place] [address] Oct, [facility] [place] [facility] [address] [facility] [id number] [place] [address] Oct, [facility] [place] [facility] [address] [id number] [place] [address] Oct, [facility] [address] [id number] [place] [address] Oct, [facility] [address] [id number] [place] [address] Sep, [facility] [address] [id number] [place] [address] Sep, [facility] [address] [id number] [place] [address] Sep, [facility] [address] [id number] [place] [address] Sep, [facility] [address] [id number] [place] [address] Aug, [facility] [address] [id number] [place] [address] Aug, [facility] [address] [id number] [place] [address] Aug, [facility] [address] [id number] [place] [address] Aug, [facility] [address] [id number] [place] [address] Aug, [facility] [address] [id number] [place] [address] Aug, [facility] [address] [id number] [place] [address] Aug, [facility] [place] [facility] [address] [id number] [place] [address] Aug, [facility] [place] [facility] [address] [id number] [place] [address] Aug, [facility] [place] [facility] [address] [id number] [place] [address] Aug, [facility] [place] [facility] [address] [id number] [place] [address] Jul, [facility] [place] [facility] [address] [id number] [place] [address] Jul, [facility] [place] [facility] [address] [id number] [place] [address] Jul, [facility] [place] [facility] [address] [id number] [place] [address] Jul, [facility] [place] [facility] [address] [id number] [place] [address] Jun, [facility] [place] [facility] [address] [id number] [place] [address] Jun, [facility] [place] [facility] [address] [id number] [place] [address] Jun, [facility] [place] [facility] [address] [id number] [place] [address] Jun, [facility] [place] [facility] [address] [id number] [place] [address] May, [facility] [place] [facility] [address] [id number] [place] [address] May, [facility] [place] [facility] [address] [id number] [place] [address] May, [facility] [place] [facility] [address] [id number], [place] [address] May, [facility] [place] [facility] [address] [id number] [place] [address] Apr, [facility] [place] [facility] [address] [id number] [place] [address] Apr, [facility] [place] [facility] [address] [id number] [place] [address] Feb, [facility] [place] [facility] [address] [id number], [place] [address] January, [facility] [address] [id number] [place] [address] January, [facility] [place] [facility] [address] [id number] [place] [address] January, [facility] [place] [facility] [address] [id number] [place] [address] January, [facility] [place] [facility] [address] [id number] [place] [address] January, [facility] [place] [facility] [address] [id number] [place] [address] January, [facility] [place] [facility] [address] [id number] [place] [address] Dec, [facility] [place] [facility] [address] [id number] [place] [address] Dec, [facility] [place] [facility] [address] [id number] [place] [address] Dec, [facility] [place] [facility] [address] [id number] [place] [address] Dec, [facility] [place] [facility] [address] [id number] [place] [address] Dec, [facility] [place] [facility] [address] [id number] [place] [address] Dec, [facility] [place] [facility] [address] [id number] [place] [address] Dec, [facility] [place] [facility] [address] [id number] [place] [address] Dec, [facility] [place] [facility] [address] [id number] [place] [address] Nov, [facility] [place] [facility] [address] [id number] [place] [address] Nov, [facility] [place] [facility] [address] [id number] [place] [address] Nov, [facility] [place] [facility] [address] [id number] [place] [address] Nov, [facility] [place] [facility] [address] [id number] [place] [address] Nov, [facility] [place] [facility] [address] [id number] [place] [address] Nov, [facility] [place] [facility] [address] [id number] [place] [address] Nov, [facility] [place] [facility] [address] [id number] [place] [address] Oct, [facility] [place] [facility] [address] [id number] [place] [address] Oct, [facility] [place] [facility] [address] [id number] [place] [address] Oct, [facility] [place] [facility] [address] [id number] [place] [address] Oct, [facility] [place] [facility] [address] [id number] [place] [address] Sep, [facility] [place] [facility] [address] [id number] [place] [address] Sep, [facility] [place] [facility] [address] [id number] [place] [address] Sep, [facility] [place] [facility] [address] [id number] [place] [address] Sep, [facility] [place] [facility] [address] [id number] [place] [address] Aug, [facility] [place] [facility] [address] [id number] [place] [address] Aug, [facility] [place] [facility] [address] [id number] [place] [address] Jul, [facility] [place] [facility] [address] [id number] [place] [address] Jul, [facility] [place] [facility] [address] [id number] [place] [address] Jun, [facility] [place] [facility] [address] [id number] [place] [address] Jun, [facility] [place] [facility] [address] [id number] [place] [address] Jun, [facility] [place] [facility] [address] [id number] [place] [address] May, [facility] [place] [facility] [address] [id number] [place] [address] Apr, [facility] [place] [facility] [address] [id number] [place] [address] Apr, [facility] [place] [facility] [address] [id number] [place] [address] Mar, [facility] [place] [facility] [address] [id number] [place] [address] Feb, [facility] [place] [facility] [address] [id number] [place] [address] Feb, [facility] [place] [facility] [address] [id number] [place] [address] January, [facility] [place] [facility] [address] [id number] [address] January, [facility] [place] [facility] [address] [id number] [place] [address] Dec, [facility] [place] [facility] [address] [id number] [place] [address] Dec, [facility] [place] [facility] [address] [id number] [place] [address] Dec, [facility] [place] [facility] [address] [id number] [place] [address] 05 Dec, [facility] [address] [id number] [place] [address] Nov, [facility] [address] [id number] [place] [address] Nov, [facility] [address] [id number] [place] [address] Oct, [facility] [address] [id number] [place] [address] Oct, [facility] [address] [id number] [place] [address] Oct, [facility] [address] [id number] [place] [address] Sep, [facility] [address] [id number] [place] [address] Sep, [facility] [address] [id number] [place] [address] Sep, [facility] [address] [id number] [place] [address] Sep, [facility] [address] [id number] [place] [address] Sep, [facility] [address] [id number] [place] [address] Aug, [facility] [address] [id number] [place] [address] Aug, [facility] [place] [facility] [address] [id number] [place] [address] Aug, [facility] [address] [id number] [place] [address] Aug, [facility] [address] [id number] [place] [address] Jul, [facility] [place] [facility] [address] [address] [id number] [place] [address] Jul, [facility] [place] [facility] [address] [id number] [place] [address] Jul, [facility] [place] [facility] [address] [id number] [place] [address] Jul, [facility] [place] [facility] [address] [id number] [place] [address] Jun, [facility] [place] [facility] [address] [id number] [place] [address] Jun, [facility] [place] [facility] [address] [id number] [place] [address] Jun, [facility] [place] [facility] [address] [id number] [place] [address] Jun, [facility] [place] [facility] [address] [id number] [place] [address] Jun, [facility] [place] [facility] [address] [id number] [place] [address] 24 May, 2012 [facility] [place] [facility] [address] [id number] [place] [address] 13 May, 2012 [facility] [place] [facility] [address] [id number] [place] [address] 12 May, 2012 [facility] [place] [facility] [address] [id number] [address] 11 Sep2011 [facility] [place] [facility] [address] [id number] [place] [address] 10 Sep2011 [facility] [place] [facility] [address] [id number] [place] [address] 06 Sep2011 [facility] [place] [facility] [address] [id number] [place] [address] 05 Sep2011 [facility] [place] [facility] [address] [id number] [place] [address] Apr, [facility] [place] [facility] [address] [id number] [place] [address] Apr, [facility] [place] [facility] [address] [id number] [place] [address] Apr, [facility] [place] [facility] [address] [id number] [place] [address] Apr, [facility] [place] [facility] [address] [id number] [place] [address] Apr, [facility] [place] [facility] [address] [id number] [place] [address] Apr, [facility] [place] [facility] [address] [id number] [place] [address] Apr, [facility] [place] [facility] [address] [id number] [place] [address] Apr, [facility] [place] [facility] [address] [id number] [place] [address] Mar, [facility] [place] [facility] [address] [id number] [place] [address] Mar, [facility] [place] [facility] [address] [id number] [place] [address] Mar, [facility] [place] [facility] [address] [id number] [place] [address] Feb, [facility] [place] [facility] [address] [id number] [place] [address] January, [facility] [place] [facility] [address] [id number] [place] [address] January, [facility] [place] [facility] [address] [id number] [place] [address] January, [facility] [place] [facility] [address] [id number] [place] [address] Dec, [facility] [place] [facility] [address] [facility] [id number] [place] [address] Dec, [facility] [address] [facility] [id number] [address] Dec, [facility] [address] [facility] [id number], [place] [address] Dec, [facility] [address] [facility] [id number], [place] [address] Dec, [facility] [address] [facility] [id number], [place] [address] Dec, IMMUNIZATIONS No Known Immunizations SOCIAL HISTORY Never Assessed REASON FOR VISIT Shingrix PLAN OF CARE VITAL SIGNS MEDICATIONS Medication Instructions Dosage Frequency Start Date End Date Duration Status Shingrix 50 MCG as directed May, Active RESULTS No Results PROCEDURES No Known [...] Surgical History appendectomy age 10 at [facility] Surgical History cholecystectomy-[facility] 2007 Surgical History coronary artery bypass graft LAD 02/2012 Surgical History heart cath x2 after bypass, pt has 5 stents Hospitalization History Chest pain, dizziness, renal insuff, heat cath showed CAD ([facility]) 01/03/2012 Hospitalization History CABG ([facility]) Dr. Banks 02/2012
--- OUTSIDE RECORDS SUMMARY | 2019-05-03 09:40 | XMS REPORT ---
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 angina pectoris I25.10 Active 8575364298931 Problem Anemia, unspecified type D64.9 Active 800852802 Problem Vertigo R42 Active 613128196 Problem Mixed hyperlipidemia E78.2 Active 183540680 Problem Iron deficiency anemia, unspecified iron deficiency anemia type D50.9 Active 74275570 ALLERGIES No Information ENCOUNTERS Encounter Location Date Diagnosis [place] [id number] [place] [address] May, [place] [id number] [place] [address] 11 May, 2018 Medicare annual wellness visit, initial Z00.00 ; Chest wall pain R07.89 ; Mixed hyperlipidemia E78.2 ; Coronary artery disease involving orutsararmiut coronary artery of orutsararmiut heart without angina pectoris I25.10 ; History of smoking Z87.891 and Chronic kidney disease N18.9 [facility] [address] [id number] [place] [address] May, Chest wall pain R07.89 [facility] [id number] [place] [address] Apr, Chest wall pain R07.89 [facility] [id number] [place] [address] Apr, [place] [address] [address] [id number] [address] Apr, Chest wall pain R07.89 ; Chronic kidney disease N18.9 ; Iron deficiency anemia, unspecified iron deficiency anemia type D50.9 ; Chronic fatigue R53.82 ; Coronary artery disease involving orutsararmiut coronary artery of orutsararmiut heart without angina pectoris I25.10 and Anemia, unspecified type D64.9 [place] [address] [place] [id number] [place] [address] Apr, Chest wall pain R07.89 [place] [address] [place] [id number] [place] [address] Mar, Chest wall pain R07.89 [place] [address] [place] [address] [id number] [place] [address] Feb, Chest wall pain R07.89 [place] [address] [place] [id number] [place] [address] January, Chest wall pain R07.89 [place] [address] [address] [id number] [place] [address] Dec, Chest wall pain R07.89 ; Coronary artery disease involving orutsararmiut coronary artery of orutsararmiut heart without angina pectoris I25.10 and Vertigo R42 [place] [id number] [address] Dec, Chest wall pain R07.89 [place] [address] [place] [address] [id number] [place] [address] Nov, Chest wall pain R07.89 [place] [address] [place] [id number] [place] [address] Oct, Chest wall pain R07.89 [place] [address] [place] [id number] [place] [address] Sep, Chest wall pain R07.89 and Pleurodynia R07.81 [place] [address] [place] [address] Sep, [facility] [id number] [place] [address] Sep, Chest wall pain R07.89 and Sore throat J02.9 [facility] [id number] [place] [address] Sep, [facility] [id number] [place] [address] Sep, Sore throat J02.9 and Acute nasopharyngitis J00 [facility] [id number] [place] [address] Sep, [facility] [id number] [place] [address] Aug, Chest wall pain R07.89 [facility] [id number] [place] [address] Jul, Chest wall pain R07.89 [facility] [id number] [place] [address] Jul, [facility] [id number] [place] [address] Jul, Chest wall pain R07.89 [facility] [id number] [place] [address] Jul, Chest wall pain R07.89 ; Chronic fatigue R53.82 ; Anemia, unspecified type D64.9 ; Vertigo R42 and Coronary artery disease involving orutsararmiut coronary artery of orutsararmiut heart without angina pectoris I25.10 [facility] [id number] [place] [address] Jun, Chest wall pain R07.89 [facility] [id number] [place] [address] Apr, Chest wall pain R07.89 [facility] [id number] [place] [address] Apr, [facility] [id number] [place] [address] Apr, Dental abscess K04.7 [facility] [id number] [place] [address] Apr, [facility] [id number] [place] [address] Apr, Chest wall pain R07.89 [facility] [id number] [place] [address] Mar, Chest wall pain R07.89 [facility] [address] [place] [id number] [place] [address] 15 Feb, 2017 Chest wall pain R07.89 ; Lateral epicondylitis of right elbow M77.11 and Mixed hyperlipidemia E78.2 [facility] [address] [place] [id number] [place] [address] Feb, Chest wall pain R07.89 [facility] [id number] [place] [address] January, [facility] [address] [place] [id number] [place] [address] January, Chest wall pain R07.89 [facility] [id number] [place] [address] Dec, Chest wall pain R07.89 [facility] [id number] [place] [address] Nov, [facility] [address] [place] [id number] [place] [address] Nov, Hypokalemia E87.6 [facility] [id number] [place] [address] Nov, Hypokalemia E87.6 and Iron deficiency anemia, unspecified iron deficiency anemia type D50.9 [facility] [address] [address] Nov, [facility] [id number] [place] [address] Nov, Nausea R11.0 and Hypovolemia E86.1 [facility] [id number] [place] [address] Nov, [facility] [id number] [place] [address] Nov, [facility] [address] [id number] [place] [address] Nov, Chest wall pain R07.89 [facility] [id number] [place] [address] Nov, Bronchitis J40 [facility] [address] [place] [id number] [place] [address] 09 Oct, 2016 Chest wall pain R07.89 [facility] [id number] [place] [address] Sep, Chest wall pain R07.89 [facility] [id number] [place] [address] Aug, Chest wall pain R07.89 [facility] [address] [place] [address] Aug, Chest pain on breathing R07.1 [facility] [address] [place] [address] 10 Jul, 2016 [facility] [address] [place] [id number] [place] [address] 07 Jun, 2016 [facility] [address] [place] [address] 16 May, 2016 Chest wall pain R07.89 ; Iron deficiency anemia, unspecified iron deficiency anemia type D50.9 ; Chronic kidney disease N18.9 and Encounter for immunization Z23 [facility] [id number] [place] [address] May, [facility] [id number] [place] [address] Apr, [facility] [address] [place] [address] [id number] [place] [address] Mar, [facility] [address] [address] Mar, [facility] [address] [place] [id number] [place] [address] Feb, [place] [address] [address] Feb, Iron deficiency anemia, unspecified iron deficiency anemia type D50.9 [facility] [address] [address] Feb, Dehydration E86.0 ; Diarrhea, unspecified type R19.7 ; Dizziness R42 and Other specified hypotension I95.89 [place] [address] [place] [id number] [place] [address] Feb, Anemia, unspecified type D64.9 [place] [address] [place] [id number] [place] [address] January, Anemia, unspecified type D64.9 [place] [address] [place] [id number] [place] [address] January, Paresthesia R20.2 [place] [address] [place] [id number] [place] [address] January, Chest wall pain R07.89 [place] [address] [place] [id number] [place] [address] Dec, Insomnia G47.00 [place] [address] [place] [id number] [place] [address] Dec, Chest pain on breathing R07.1 [facility] [id number] [place] [address] Nov, Chest pain on breathing R07.1 [facility] [id number] [place] [address] Oct, [facility] [id number] [place] [address] Oct, [facility] [address] [address] Oct, Low back pain M54.5 and Chest wall pain R07.89 [facility] [address] [address] Oct, Pleurodynia R07.81 [facility] [address] [id number] [place] [address] Sep, Pleurodynia R07.81 and Other nerve root and plexus disorders G54.8 [facility] [id number] [place] [address] Aug, Chronic kidney disease N18.9 ; Encounter for immunization Z23 ; Chest wall pain R07.89 ; Urinary frequency R35.0 and Vertigo R42 [facility] [id number] [place] [address] Aug, [facility] [id number] [place] [address] Jul, [facility] [id number] [place] [address] Jul, [facility] [id number] [place] [address] Jun, [facility] [address] [id number] [place] [address] Jun, [facility] [id number] [place] [address] May, [facility] [address] [facility] [id number] [address] May, [facility] [address] [facility] [id number], [place] [address] May, [facility] [id number] [address] May, Coronary atherosclerosis of unspecified type of vessel, orutsararmiut or graft 414.00 [facility] [address] [id number], [place] [address] Apr, [facility] [id number] [place] [address] Apr, [facility] [address] [facility] [id number], [place] [address] Apr, [facility] [address] [place] [address] Apr, [facility] [address] [id number], [place] [address] Apr, [facility] [address] [address] Apr, Coronary atherosclerosis of unspecified type of vessel, orutsararmiut or graft 414.00 and Left-sided chest wall pain 786.52 [facility] [address] [facility] [id number] [address] Mar, [facility] [address] [facility] [id number], [place] [address] Mar, [facility] [address] [facility] [id number], [place] [address] Feb, [facility] [address] [facility] [id number], [place] [address] Feb, [facility] [id number] [address] January, [facility] [address] [id number] [place] [address] January, [facility] [place] [facility] [address] [id number] [place] [address] January, [facility] [place] [facility] [address] [id number] [place] [address] January, Neuropathic pain of chest 353.8 [facility] [place] [facility] [address] [id number] [place] [address] Dec, [facility] [place] [facility] [address] [id number] [place] [address] Dec, [facility] [place] [facility] [address] [id number] [place] [address] Nov, [facility] [place] [facility] [address] [id number] [place] [address] Nov, [facility] [place] [facility] [address] [id number] [place] [address] Nov, [facility] [place] [facility] [address] [id number] [place] [address] Nov, [facility] [place] [facility] [address] [facility] [id number] [place] [address] Nov, [facility] [place] [facility] [address] [id number] [place] [address] Nov, [facility] [place] [facility] [address] [id number], [place] [address] Oct, [facility] [place] [facility] [address] [id number] [place] [address] Oct, [facility] [place] [facility] [address] [id number] [place] [address] Oct, [facility] [place] [facility] [address] [facility] [id number] [place] [address] Oct, [facility] [place] [facility] [address] [id number] [place] [address] Oct, [facility] [address] [id number] [place] [address] Oct, [facility] [address] [id number] [place] [address] Sep, [facility] [address] [id number] [place] [address] Sep, [facility] [address] [id number] [place] [address] Sep, [facility] [address] [id number] [place] [address] Sep, [facility] [address] [id number] [place] [address] Aug, [facility] [address] [id number] [place] [address] Aug, [facility] [address] [id number] [place] [address] Aug, [facility] [address] [id number] [place] [address] Aug, [facility] [address] [id number] [place] [address] Aug, [facility] [address] [id number] [place] [address] Aug, [facility] [address] [id number] [place] [address] Aug, [facility] [place] [facility] [address] [id number] [place] [address] Aug, [facility] [place] [facility] [address] [id number] [place] [address] Aug, [facility] [place] [facility] [address] [id number] [place] [address] Aug, [facility] [place] [facility] [address] [id number] [place] [address] Jul, [facility] [place] [facility] [address] [id number] [place] [address] Jul, [facility] [place] [facility] [address] [id number] [place] [address] Jul, [facility] [place] [facility] [address] [id number] [place] [address] Jul, [facility] [place] [facility] [address] [id number] [place] [address] Jun, [facility] [place] [facility] [address] [id number] [place] [address] Jun, [facility] [place] [facility] [address] [id number] [place] [address] Jun, [facility] [place] [facility] [address] [id number] [place] [address] Jun, [facility] [place] [facility] [address] [id number] [place] [address] May, [facility] [place] [facility] [address] [id number] [place] [address] May, [facility] [place] [facility] [address] [id number] [place] [address] May, [facility] [place] [facility] [address] [id number], [place] [address] May, [facility] [place] [facility] [address] [id number] [place] [address] Apr, [facility] [place] [facility] [address] [id number] [place] [address] Apr, [facility] [place] [facility] [address] [id number] [place] [address] Feb, [facility] [place] [facility] [address] [id number], [place] [address] January, [facility] [address] [id number] [place] [address] January, [facility] [place] [facility] [address] [id number] [place] [address] January, [facility] [place] [facility] [address] [id number] [place] [address] January, [facility] [place] [facility] [address] [id number] [place] [address] January, [facility] [place] [facility] [address] [id number] [place] [address] January, [facility] [place] [facility] [address] [id number] [place] [address] Dec, [facility] [place] [facility] [address] [id number] [place] [address] Dec, [facility] [place] [facility] [address] [id number] [place] [address] Dec, [facility] [place] [facility] [address] [id number] [place] [address] Dec, [facility] [place] [facility] [address] [id number] [place] [address] Dec, [facility] [place] [facility] [address] [id number] [place] [address] Dec, [facility] [place] [facility] [address] [id number] [place] [address] Dec, [facility] [place] [facility] [address] [id number] [place] [address] Dec, [facility] [place] [facility] [address] [id number] [place] [address] Nov, [facility] [place] [facility] [address] [id number] [place] [address] Nov, [facility] [place] [facility] [address] [id number] [place] [address] Nov, [facility] [place] [facility] [address] [id number] [place] [address] Nov, [facility] [place] [facility] [address] [id number] [place] [address] Nov, [facility] [place] [facility] [address] [id number] [place] [address] Nov, [facility] [place] [facility] [address] [id number] [place] [address] Nov, [facility] [place] [facility] [address] [id number] [place] [address] Oct, [facility] [place] [facility] [address] [id number] [place] [address] Oct, [facility] [place] [facility] [address] [id number] [place] [address] Oct, [facility] [place] [facility] [address] [id number] [place] [address] Oct, [facility] [place] [facility] [address] [id number] [place] [address] Sep, [facility] [place] [facility] [address] [id number] [place] [address] Sep, [facility] [place] [facility] [address] [id number] [place] [address] Sep, [facility] [place] [facility] [address] [id number] [place] [address] Sep, [facility] [place] [facility] [address] [id number] [place] [address] Aug, [facility] [place] [facility] [address] [id number] [place] [address] Aug, [facility] [place] [facility] [address] [id number] [place] [address] Jul, [facility] [place] [facility] [address] [id number] [place] [address] Jul, [facility] [place] [facility] [address] [id number] [place] [address] Jun, [facility] [place] [facility] [address] [id number] [place] [address] Jun, [facility] [place] [facility] [address] [id number] [place] [address] Jun, [facility] [place] [facility] [address] [id number] [place] [address] May, [facility] [place] [facility] [address] [id number] [place] [address] Apr, [facility] [place] [facility] [address] [id number] [place] [address] Apr, [facility] [place] [facility] [address] [id number] [place] [address] Mar, [facility] [place] [facility] [address] [id number] [place] [address] Feb, [facility] [place] [facility] [address] [id number] [place] [address] Feb, [facility] [place] [facility] [address] [id number] [place] [address] January, [facility] [place] [facility] [address] [id number] [address] January, [facility] [place] [facility] [address] [id number] [place] [address] Dec, [facility] [place] [facility] [address] [id number] [place] [address] Dec, [facility] [place] [facility] [address] [id number] [place] [address] Dec, [facility] [place] [facility] [address] [id number] [place] [address] 05 Dec, 2012 [facility] [address] [id number] [place] [address] Nov, [facility] [address] [id number] [place] [address] Nov, [facility] [address] [id number] [place] [address] Oct, [facility] [address] [id number] [place] [address] Oct, [facility] [address] [id number] [place] [address] Oct, [facility] [address] [id number] [place] [address] Sep, [facility] [address] [id number] [place] [address] Sep, [facility] [address] [id number] [place] [address] Sep, [facility] [address] [id number] [place] [address] Sep, [facility] [address] [id number] [place] [address] Sep, [facility] [address] [id number] [place] [address] Aug, [facility] [address] [id number] [place] [address] Aug, [facility] [place] [facility] [address] [id number] [place] [address] Aug, [facility] [address] [id number] [place] [address] Aug, [facility] [address] [id number] [place] [address] Jul, [facility] [place] [facility] [address] [id number] [place] [address] Jul, [facility] [place] [facility] [address] [id number] [place] [address] Jul, [facility] [place] [facility] [address] [id number] [place] [address] Jul, [facility] [place] [facility] [address] [id number] [place] [address] Jun, [facility] [place] [facility] [address] [id number] [place] [address] Jun, [facility] [place] [facility] [address] [id number] [place] [address] Jun, [facility] [place] [facility] [address] [id number] [place] [address] Jun, [facility] [place] [facility] [address] [id number] [place] [address] Jun, [facility] [place] [facility] [address] [id number] [place] [address] 24 May, 2012 [facility] [place] [facility] [address] [id number] [place] [address] 13 May, 2012 [facility] [place] [facility] [address] [id number] [place] [address] 12 May, 2012 [facility] [place] [facility] [address] [id number], [place] [address] 11 Sep2011 [facility] [place] [facility] [address] [id number] [place] [address] 10 Sep2011 [facility] [place] [facility] [address] [id number] [place] [address] 06 Sep2011 [facility] [place] [facility] [address] [id number] [place] [address] 05 Sep2011 [facility] [place] [facility] [address] [id number] [place] [address] Apr, [facility] [place] [facility] [address] [id number] [place] [address] Apr, [facility] [place] [facility] [address] [id number] [place] [address] Apr, [facility] [place] [facility] [address] [id number] [place] [address] Apr, [facility] [place] [facility] [address] [id number] [place] [address] Apr, [facility] [place] [facility] [address] [id number] [place] [address] Apr, [facility] [place] [facility] [address] [id number] [place] [address] Apr, [facility] [place] [facility] [address] [id number] [place] [address] Apr, [facility] [place] [facility] [address] [id number] [place] [address] Mar, [facility] [place] [facility] [address] [id number] [place] [address] Mar, [facility] [place] [facility] [address] [id number] [place] [address] Mar, [facility] [place] [facility] [address] [id number] [place] [address] Feb, [facility] [place] [facility] [address] [id number] [place] [address] January, [facility] [place] [facility] [address] [id number] [place] [address] January, [facility] [place] [facility] [address] [id number] [place] [address] January, [facility] [place] [facility] [address] [id number] [place] [address] Dec, [facility] [place] [facility] [address] [facility] [id number] [place] [address] Dec, [facility] [address] [facility] [id number], [place] [address] Dec, [facility] [address] [facility] [id number], [place] [address] Dec, [facility] [address] [facility] [id number], [place] [address] Dec, [facility] [address] [facility] [id number], [place] [address] Dec, IMMUNIZATIONS No Known Immunizations SOCIAL HISTORY Never Assessed REASON FOR VISIT Controlled Med Refill PLAN OF CARE VITAL SIGNS MEDICATIONS Medication Instructions Dosage Frequency Start Date End Date Duration Status Hydrocodone-Acetaminophen 7.5-325 MG Orally, 5 times per day 2 tablet May, 30 days Active Temazepam 30 MG Orally Once a day [...] 04/02/2012 Surgical History appendectomy age 10 at [facility] Surgical History cholecystectomy-[facility] 2007 Surgical History coronary artery bypass graft LAD 02/2012 Surgical History heart cath x2 after bypass, pt has 5 stents Hospitalization History Chest pain, dizziness, renal insuff, heat cath showed CAD ([facility]) 01/03/2012 Hospitalization History CABG ([facility]) Dr. Banks 02/2012
--- OUTSIDE RECORDS SUMMARY | 2019-05-03 09:40 | XMS REPORT ---
Author Author BELEM FUENTES Organization [facility] Address [address] [place] [address] Care Team Providers Care Lead Systems Analyst Name Role Phone BELEM FUENTES Unavailable PROBLEMS Type Condition ICD9-CM Code FFM93-KE Code Onset Dates Condition Status SNOMED Code Problem Chronic kidney disease N18.9 Active 074098043 Problem Chest wall pain R07.89 Active 855709392 Problem Chronic fatigue R53.82 Active 09016673 Problem Coronary artery disease involving [place] coronary artery of [place] heart without angina pectoris I25.10 Active 3141294025400 Problem Anemia, unspecified type D64.9 Active 452541652 Problem Vertigo R42 Active 264767044 Problem Mixed hyperlipidemia E78.2 Active 178197795 Problem Iron deficiency anemia, unspecified iron deficiency anemia type D50.9 Active 26833045 ALLERGIES No Information ENCOUNTERS Encounter Location Date Diagnosis [place] [id number] [place] [address] May, [place] [id number] [place] [address] 11 May, 2018 Medicare annual wellness visit, initial Z00.00 ; Chest wall pain R07.89 ; Mixed hyperlipidemia E78.2 ; Coronary artery disease involving [place] coronary artery of [place] heart without angina pectoris I25.10 ; History of smoking Z87.891 and Chronic kidney disease N18.9 [facility] [id number] [place] [address] May, Chest wall pain R07.89 [facility] [id number] [place] [address] Apr, Chest wall pain R07.89 [facility] [id number] [place] [address] Apr, [place] [address] [place] [id number] [address] Apr, Chest wall pain R07.89 ; Chronic kidney disease N18.9 ; Iron deficiency anemia, unspecified iron deficiency anemia type D50.9 ; Chronic fatigue R53.82 ; Coronary artery disease involving [place] coronary artery of [place] heart without angina pectoris I25.10 and Anemia, unspecified type D64.9 [place] [address] [address] [id number] [place] [address] Apr, Chest wall pain R07.89 [place] [address] [place] [id number] [place] [address] Mar, Chest wall pain R07.89 [place] [address] [place] [address] [id number] [place] [address] Feb, Chest wall pain R07.89 [place] [address] [place] [id number] [place] [address] January, Chest wall pain R07.89 [place] [address] [place] [address] [id number] [place] [address] Dec, Chest wall pain R07.89 ; Coronary artery disease involving [place] coronary artery of [place] heart without angina pectoris I25.10 and Vertigo R42 [place] [id number] [address] Dec, Chest wall pain R07.89 [place] [address] [place] [id number] [place] [address] Nov, Chest wall pain R07.89 [place] [address] [place] [id number] [place] [address] Oct, Chest wall pain R07.89 [place] [address] [place] [id number] [place] [address] Sep, Chest wall pain R07.89 and Pleurodynia R07.81 [place] [address] [place] [address] Sep, [facility] [id number] [place] [address] Sep, Chest wall pain R07.89 and Sore throat J02.9 [facility] [id number] [place] [address] Sep, [facility] [id number] [place] [address] Sep, Sore throat J02.9 and Acute nasopharyngitis J00 [facility] [address] [id number] [place] [address] Sep, [facility] [id number] [place] [address] Aug, Chest wall pain R07.89 [facility] [id number] [place] [address] Jul, Chest wall pain R07.89 [facility] [id number] [place] [address] Jul, [facility] [id number] [place] [address] Jul, Chest wall pain R07.89 [facility] [id number] [place] [address] Jul, Chest wall pain R07.89 ; Chronic fatigue R53.82 ; Anemia, unspecified type D64.9 ; Vertigo R42 and Coronary artery disease involving [place] coronary artery of [place] heart without angina pectoris I25.10 [facility] [id number] [place] [address] Jun, Chest wall pain R07.89 [facility] [id number] [place] [address] Apr, Chest wall pain R07.89 [facility] [id number] [place] [address] Apr, [facility] [id number] [place] [address] Apr, Dental abscess K04.7 [facility] [id number] [place] [address] Apr, [facility] [id number] [place] [address] Apr, Chest wall pain R07.89 [facility] [id number] [place] [address] Mar, Chest wall pain R07.89 [facility] [address] [place] [id number] [place] [address] 15 Feb, 2017 Chest wall pain R07.89 ; Lateral epicondylitis of right elbow M77.11 and Mixed hyperlipidemia E78.2 [facility] [address] [place] [address] [id number] [place] [address] Feb, Chest wall pain R07.89 [facility] [address] [id number] [place] [address] January, [facility] [address] [place] [address] [id number] [place] [address] January, Chest wall pain R07.89 [facility] [id number] [place] [address] Dec, Chest wall pain R07.89 [facility] [id number] [place] [address] Nov, [facility] [address] [place] [address] [id number] [place] [address] Nov, Hypokalemia E87.6 [facility] [address] [place] [address] Nov, Hypokalemia E87.6 and Iron deficiency anemia, unspecified iron deficiency anemia type D50.9 [facility] [address] [address] Nov, [facility] [id number] [place] [address] Nov, Nausea R11.0 and Hypovolemia E86.1 [facility] [address] [id number] [place] [address] Nov, [facility] [id number] [place] [address] Nov, [facility] [address] [id number] [place] [address] Nov, Chest wall pain R07.89 [facility] [address] [id number] [place] [address] Nov, Bronchitis J40 [facility] [address] [place] [address] [id number] [place] [address] 09 Oct, 2016 Chest wall pain R07.89 [facility] [id number] [place] [address] Sep, Chest wall pain R07.89 [facility] [address] [place] [id number] [place] [address] Aug, Chest wall pain R07.89 [facility] [address] [place] [address] Aug, Chest pain on breathing R07.1 [facility] [address] [place] [address] 10 Jul, 2016 [facility] [address] [place] [address] [id number] [place] [address] 07 Jun, 2016 [facility] [address] [place] [address] 16 May, 2016 Chest wall pain R07.89 ; Iron deficiency anemia, unspecified iron deficiency anemia type D50.9 ; Chronic kidney disease N18.9 and Encounter for immunization Z23 [facility] [id number] [place] [address] May, [facility] [id number] [place] [address] Apr, [facility] [address] [place] [id number] [place] [address] Mar, [facility] [address] [address] Mar, [facility] [address] [place] [address] [id number] [place] [address] Feb, [place] [address] [address] Feb, Iron deficiency anemia, unspecified iron deficiency anemia type D50.9 [facility] [address] [address] Feb, Dehydration E86.0 ; Diarrhea, unspecified type R19.7 ; Dizziness R42 and Other specified hypotension I95.89 [place] [address] [place] [id number] [place] [address] Feb, Anemia, unspecified type D64.9 [place] [address] [place] [id number] [place] [address] January, Anemia, unspecified type D64.9 [place] [address] [place] [id number] [place] [address] January, Paresthesia R20.2 [place] [address] [place] [id number] [place] [address] January, Chest wall pain R07.89 [place] [address] [place] [id number] [place] [address] Dec, Insomnia G47.00 [place] [address] [place] [id number] [place] [address] Dec, Chest pain on breathing R07.1 [facility] [id number] [place] [address] Nov, Chest pain on breathing R07.1 [facility] [address] [place] [id number] [place] [address] Oct, [facility] [address] [id number] [place] [address] Oct, [facility] [address] [address] Oct, Low back pain M54.5 and Chest wall pain R07.89 [facility] [address] [address] Oct, Pleurodynia R07.81 [facility] [address] [place] [id number] [place] [address] Sep, Pleurodynia R07.81 and Other nerve root and plexus disorders G54.8 [facility] [id number] [place] [address] Aug, Chronic kidney disease N18.9 ; Encounter for immunization Z23 ; Chest wall pain R07.89 ; Urinary frequency R35.0 and Vertigo R42 [facility] [id number] [place] [address] Aug, [facility] [id number] [place] [address] Jul, [facility] [address] [id number] [place] [address] Jul, [facility] [id number] [place] [address] Jun, [facility] [id number] [place] [address] Jun, [facility] [address] [place] [id number] [place] [address] May, [facility] [address] [facility] [id number] [address] May, [facility] [address] [facility] [id number] [address] May, [facility] [id number] [address] May, Coronary atherosclerosis of unspecified type of vessel, [place] or graft 414.00 [facility] [address] [id number] [address] Apr, [facility] [id number] [place] [address] Apr, [facility] [address] [facility] [id number] [address] Apr, [facility] [address] [place] [address] Apr, [facility] [address] [id number] [place] [address] Apr, [facility] [address] [address] Apr, Coronary atherosclerosis of unspecified type of vessel, [place] or graft 414.00 and Left-sided chest wall pain 786.52 [facility] [address] [facility] [id number] [place] [address] Mar, [facility] [address] [facility] [id number] [address] Mar, [facility] [address] [facility] [id number] [place] [address] Feb, [facility] [address] [facility] [id number] [place] [address] Feb, [facility] [id number] [address] January, [facility] [address] [id number] [place] [address] January, [facility] [place] [facility] [address] [id number] [place] [address] January, [facility] [place] [facility] [address] [id number] [place] [address] January, Neuropathic pain of chest 353.8 [facility] [place] [facility] [address] [id number] [place] [address] Dec, [facility] [place] [facility] [address] [id number] [place] [address] Dec, [facility] [place] [facility] [address] [id number] [place] [address] Nov, [facility] [place] [facility] [address] [id number] [place] [address] Nov, [facility] [place] [facility] [address] [id number] [place] [address] Nov, [facility] [place] [facility] [address] [id number] [place] [address] Nov, [facility] [place] [facility] [address] [facility] [id number] [place] [address] Nov, [facility] [place] [facility] [address] [id number] [place] [address] Nov, [facility] [place] [facility] [address] [id number] [place] [address] Oct, [facility] [place] [facility] [address] [id number] [place] [address] Oct, [facility] [place] [facility] [address] [id number] [place] [address] Oct, [facility] [place] [facility] [address] [facility] [id number] [place] [address] Oct, [facility] [place] [facility] [address] [id number] [place] [address] Oct, [facility] [address] [id number] [place] [address] Oct, [facility] [address] [id number] [place] [address] Sep, [facility] [address] [id number] [place] [address] Sep, [facility] [address] [id number] [place] [address] Sep, [facility] [address] [id number] [place] [address] Sep, [facility] [address] [id number] [place] [address] Aug, [facility] [address] [id number] [place] [address] Aug, [facility] [address] [id number] [place] [address] Aug, [facility] [address] [id number] [place] [address] Aug, [facility] [address] [id number] [place] [address] Aug, [facility] [address] [id number] [place] [address] Aug, [facility] [address] [id number] [place] [address] Aug, [facility] [place] [facility] [address] [id number] [place] [address] Aug, [facility] [place] [facility] [address] [id number] [place] [address] Aug, [facility] [place] [facility] [address] [id number] [place] [address] Aug, [facility] [place] [facility] [address] [id number] [place] [address] Jul, [facility] [place] [facility] [address] [id number] [place] [address] Jul, [facility] [place] [facility] [address] [id number] [place] [address] Jul, [facility] [place] [facility] [address] [id number] [place] [address] Jul, [facility] [place] [facility] [address] [id number] [place] [address] Jun, [facility] [place] [facility] [address] [id number] [place] [address] Jun, [facility] [place] [facility] [address] [id number] [place] [address] Jun, [facility] [place] [facility] [address] [id number] [place] [address] Jun, [facility] [place] [facility] [address] [id number] [place] [address] May, [facility] [place] [facility] [address] [id number] [place] [address] May, [facility] [place] [facility] [address] [id number] [place] [address] May, [facility] [place] [facility] [address] [id number] [place] [address] May, [facility] [place] [facility] [address] [id number] [place] [address] Apr, [facility] [place] [facility] [address] [id number] [place] [address] Apr, [facility] [place] [facility] [address] [id number] [place] [address] Feb, [facility] [place] [facility] [address] [id number] [place] [address] January, [facility] [address] [id number] [place] [address] January, [facility] [place] [facility] [address] [id number] [place] [address] January, [facility] [place] [facility] [address] [id number] [place] [address] January, [facility] [place] [facility] [address] [id number] [place] [address] January, [facility] [place] [facility] [address] [id number] [place] [address] January, [facility] [place] [facility] [address] [id number] [place] [address] Dec, [facility] [place] [facility] [address] [id number] [place] [address] Dec, [facility] [place] [facility] [address] [id number] [place] [address] Dec, [facility] [place] [facility] [address] [id number] [place] [address] Dec, [facility] [place] [facility] [address] [id number] [place] [address] Dec, [facility] [place] [facility] [address] [id number] [place] [address] Dec, [facility] [place] [facility] [address] [id number] [place] [address] Dec, [facility] [place] [facility] [address] [id number] [place] [address] Dec, [facility] [place] [facility] [address] [id number] [place] [address] Nov, [facility] [place] [facility] [address] [id number] [place] [address] Nov, [facility] [place] [facility] [address] [id number] [place] [address] Nov, [facility] [place] [facility] [address] [id number] [place] [address] Nov, [facility] [place] [facility] [address] [id number] [place] [address] Nov, [facility] [place] [facility] [address] [id number] [place] [address] Nov, [facility] [place] [facility] [address] [id number] [place] [address] Nov, [facility] [place] [facility] [address] [id number] [place] [address] Oct, [facility] [place] [facility] [address] [id number] [place] [address] Oct, [facility] [place] [facility] [address] [id number] [place] [address] Oct, [facility] [place] [facility] [address] [id number] [place] [address] Oct, [facility] [place] [facility] [address] [id number] [place] [address] Sep, [facility] [place] [facility] [address] [id number] [place] [address] Sep, [facility] [place] [facility] [address] [id number] [place] [address] Sep, [facility] [place] [facility] [address] [id number] [place] [address] Sep, [facility] [place] [facility] [address] [id number] [place] [address] Aug, [facility] [place] [facility] [address] [id number] [place] [address] Aug, [facility] [place] [facility] [address] [id number] [place] [address] Jul, [facility] [place] [facility] [address] [id number] [place] [address] Jul, [facility] [place] [facility] [address] [id number] [place] [address] Jun, [facility] [place] [facility] [address] [id number] [place] [address] Jun, [facility] [place] [facility] [address] [id number] [place] [address] Jun, [facility] [place] [facility] [address] [id number] [place] [address] May, [facility] [place] [facility] [address] [id number] [place] [address] Apr, [facility] [place] [facility] [address] [id number] [place] [address] Apr, [facility] [place] [facility] [address] [id number] [place] [address] Mar, [facility] [place] [facility] [address] [id number] [place] [address] Feb, [facility] [place] [facility] [address] [id number] [place] [address] Feb, [facility] [place] [facility] [address] [id number] [place] [address] January, [facility] [place] [facility] [address] [id number] [place] [address] January, [facility] [place] [facility] [address] [id number] [place] [address] Dec, [facility] [place] [facility] [address] [id number] [place] [address] Dec, [facility] [place] [facility] [address] [id number] [place] [address] Dec, [facility] [place] [facility] [address] [id number] [place] [address] 05 Dec, 2012 [facility] [address] [id number] [place] [address] Nov, [facility] [address] [id number] [place] [address] Nov, [facility] [address] [id number] [place] [address] Oct, [facility] [address] [id number] [place] [address] Oct, [facility] [address] [id number] [place] [address] Oct, [facility] [address] [id number] [place] [address] Sep, [facility] [address] [id number] [place] [address] Sep, [facility] [address] [id number] [place] [address] Sep, [facility] [address] [id number] [place] [address] Sep, [facility] [address] [id number] [place] [address] Sep, [facility] [address] [id number] [place] [address] Aug, [facility] [address] [id number] [place] [address] Aug, [facility] [place] [facility] [address] [id number] [place] [address] Aug, [facility] [address] [id number] [place] [address] Aug, [facility] [address] [id number] [place] [address] Jul, [facility] [place] [facility] [address] [id number] [place] [address] Jul, [facility] [place] [facility] [address] [id number] [place] [address] Jul, [facility] [place] [facility] [address] [id number] [place] [address] Jul, [facility] [place] [facility] [address] [id number] [place] [address] Jun, [facility] [place] [facility] [address] [id number] [place] [address] Jun, [facility] [place] [facility] [address] [id number] [place] [address] Jun, [facility] [place] [facility] [address] [id number] [place] [address] Jun, [facility] [place] [facility] [address] [id number] [place] [address] Jun, [facility] [place] [facility] [address] [id number] [place] [address] 24 May, 2012 [facility] [place] [facility] [address] [id number] [place] [address] 13 May, 2012 [facility] [place] [facility] [address] [id number] [place] [address] 12 May, 2012 [facility] [place] [facility] [address] [id number] [place] [address] 11 Sep2011 [facility] [place] [facility] [address] [id number] [place] [address] 10 Sep2011 [facility] [place] [facility] [address] [id number] [place] [address] 06 Sep2011 [facility] [place] [facility] [address] [id number] [place] [address] 05 Sep2011 [facility] [place] [facility] [address] [id number] [place] [address] Apr, [facility] [place] [facility] [address] [id number] [place] [address] Apr, [facility] [place] [facility] [address] [id number] [place] [address] Apr, [facility] [place] [facility] [address] [id number] [place] [address] Apr, [facility] [place] [facility] [address] [id number] [place] [address] Apr, [facility] [place] [facility] [address] [id number] [place] [address] Apr, [facility] [place] [facility] [address] [id number] [place] [address] Apr, [facility] [place] [facility] [address] [id number] [place] [address] Apr, [facility] [place] [facility] [address] [id number] [place] [address] Mar, [facility] [place] [facility] [address] [id number] [place] [address] Mar, [facility] [place] [facility] [address] [id number] [place] [address] Mar, [facility] [place] [facility] [address] [id number] [place] [address] Feb, [facility] [place] [facility] [address] [id number] [place] [address] January, [facility] [place] [facility] [address] [id number] [place] [address] January, [facility] [place] [facility] [address] [id number] [place] [address] January, [facility] [place] [facility] [address] [id number] [place] [address] Dec, [facility] [place] [facility] [address] [facility] [id number] [place] [address] Dec, [facility] [address] [facility] [id number] [place] [address] Dec, [facility] [address] [facility] [id number] [place] [address] Dec, [facility] [address] [facility] [id number] [place] [address] Dec, [facility] [address] [facility] [id number] [place] [address] Dec, IMMUNIZATIONS No Known Immunizations SOCIAL HISTORY Never Assessed REASON FOR VISIT PALS for Lyrica PLAN OF CARE VITAL SIGNS MEDICATIONS Medication Instructions Dosage Frequency Start Date End Date Duration Status Lyrica 50 mg Orally Three times a day 1 capsule 8h Active RESULTS No Results PROCEDURES No Known [...] 04/02/2012 Surgical History appendectomy age 10 at [facility] Surgical History cholecystectomy-[facility] 2007 Surgical History coronary artery bypass graft LAD 02/2012 Surgical History heart cath x2 after bypass, pt has 5 stents Hospitalization History Chest pain, dizziness, renal insuff, heat cath showed CAD ([facility]) 01/03/2012 Hospitalization History CABG ([facility]) Dr. Banks 02/2012
--- OUTSIDE RECORDS SUMMARY | 2019-05-03 09:41 | XMS REPORT ---
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 Active 2107040726452 Problem Anemia, unspecified type D64.9 Active 063977123 Problem Vertigo R42 Active 928767554 Problem Mixed hyperlipidemia E78.2 Active 336838259 Problem Iron deficiency anemia, unspecified iron deficiency anemia type D50.9 Active 94102854 ALLERGIES No Information ENCOUNTERS Encounter Location Date Diagnosis [place] [id number] [place] [address] May, [place] [id number] [place] [address] 11 May, 2018 Medicare annual wellness visit, initial Z00.00 ; Chest wall pain R07.89 ; Mixed hyperlipidemia E78.2 ; Coronary artery disease involving [place] coronary artery of [place] heart without angina pectoris I25.10 ; History of smoking Z87.891 and Chronic kidney disease N18.9 [facility] [id number] [place] [address] May, Chest wall pain R07.89 [facility] [id number] [place] [address] Apr, Chest wall pain R07.89 [facility] [id number] [place] [address] Apr, [place] [address] [place] [id number] [address] Apr, Chest wall pain R07.89 ; Chronic kidney disease N18.9 ; Iron deficiency anemia, unspecified iron deficiency anemia type D50.9 ; Chronic fatigue R53.82 ; Coronary artery disease involving [place] coronary artery of [place] heart without angina pectoris I25.10 and Anemia, unspecified type D64.9 [place] [address] [id number] [place] [address] Apr, Chest wall pain R07.89 [place] [address] [place] [address] [id number] [place] [address] Mar, Chest wall pain R07.89 [place] [address] [place] [address] [id number] [place] [address] Feb, Chest wall pain R07.89 [place] [address] [place] [address] [id number] [place] [address] January, Chest wall pain R07.89 [place] [address] [place] [address] [id number] [place] [address] Dec, Chest wall pain R07.89 ; Coronary artery disease involving [place] coronary artery of [place] heart without angina pectoris I25.10 and Vertigo R42 [place] [id number] [address] Dec, Chest wall pain R07.89 [place] [address] [place] [address] [id number] [place] [address] Nov, Chest wall pain R07.89 [place] [address] [place] [address] [id number] [place] [address] Oct, Chest wall pain R07.89 [place] [address] [place] [id number] [place] [address] Sep, Chest wall pain R07.89 and Pleurodynia R07.81 [place] [address] [place] [address] Sep, [facility] [id number] [place] [address] Sep, Chest wall pain R07.89 and Sore throat J02.9 [facility] [id number] [place] [address] Sep, [facility] [id number] [place] [address] Sep, Sore throat J02.9 and Acute nasopharyngitis J00 [facility] [address] [place] [id number] [place] [address] Sep, [facility] [id number] [place] [address] Aug, Chest wall pain R07.89 [facility] [id number] [place] [address] Jul, Chest wall pain R07.89 [facility] [id number] [place] [address] Jul, [facility] [id number] [place] [address] Jul, Chest wall pain R07.89 [facility] [id number] [place] [address] Jul, Chest wall pain R07.89 ; Chronic fatigue R53.82 ; Anemia, unspecified type D64.9 ; Vertigo R42 and Coronary artery disease involving [place] coronary artery of [place] heart without angina pectoris I25.10 [facility] [id number] [place] [address] Jun, Chest wall pain R07.89 [facility] [id number] [place] [address] Apr, Chest wall pain R07.89 [facility] [id number] [place] [address] Apr, [facility] [id number] [place] [address] Apr, Dental abscess K04.7 [facility] [id number] [place] [address] Apr, [facility] [id number] [place] [address] Apr, Chest wall pain R07.89 [facility] [id number] [place] [address] Mar, Chest wall pain R07.89 [facility] [address] [place] [address] [id number] [place] [address] 15 Feb, 2017 Chest wall pain R07.89 ; Lateral epicondylitis of right elbow M77.11 and Mixed hyperlipidemia E78.2 [facility] [address] [place] [address] [id number] [place] [address] Feb, Chest wall pain R07.89 [facility] [id number] [place] [address] January, [facility] [address] [place] [address] [id number] [place] [address] January, Chest wall pain R07.89 [facility] [id number] [place] [address] Dec, Chest wall pain R07.89 [facility] [id number] [place] [address] Nov, [facility] [address] [place] [id number] [place] [address] Nov, Hypokalemia E87.6 [facility] [id number] [place] [address] Nov, Hypokalemia E87.6 and Iron deficiency anemia, unspecified iron deficiency anemia type D50.9 [facility] [address] [address] Nov, [facility] [id number] [place] [address] Nov, Nausea R11.0 and Hypovolemia E86.1 [facility] [id number] [place] [address] Nov, [facility] [id number] [place] [address] Nov, [facility] [id number] [place] [address] Nov, Chest wall pain R07.89 [facility] [id number] [place] [address] Nov, Bronchitis J40 [facility] [address] [place] [address] [id number] [place] [address] 09 Oct, 2016 Chest wall pain R07.89 [facility] [id number] [place] [address] Sep, Chest wall pain R07.89 [facility] [address] [place] [id number] [place] [address] Aug, Chest wall pain R07.89 [facility] [id number] [place] [address] Aug, Chest pain on breathing R07.1 [facility] [id number] [place] [address] 10 Jul, 2016 [facility] [address] [place] [id number] [place] [address] 07 Jun, 2016 [facility] [address] [place] [address] 16 May, 2016 Chest wall pain R07.89 ; Iron deficiency anemia, unspecified iron deficiency anemia type D50.9 ; Chronic kidney disease N18.9 and Encounter for immunization Z23 [facility] [id number] [place] [address] May, [facility] [id number] [place] [address] Apr, [facility] [address] [place] [address] [id number] [place] [address] Mar, [facility] [address] [address] Mar, [facility] [address] [place] [id number] [place] [address] Feb, [place] [address] [address] Feb, Iron deficiency anemia, unspecified iron deficiency anemia type D50.9 [facility] [address] [address] Feb, Dehydration E86.0 ; Diarrhea, unspecified type R19.7 ; Dizziness R42 and Other specified hypotension I95.89 [place] [address] [place] [id number] [place] [address] Feb, Anemia, unspecified type D64.9 [place] [address] [place] [id number] [place] [address] January, Anemia, unspecified type D64.9 [place] [address] [place] [address] [id number] [place] [address] January, Paresthesia R20.2 [place] [address] [place] [id number] [place] [address] January, Chest wall pain R07.89 [place] [address] [place] [id number] [place] [address] Dec, Insomnia G47.00 [place] [address] [place] [address] [id number] [place] [address] Dec, Chest pain on breathing R07.1 [facility] [id number] [place] [address] Nov, Chest pain on breathing R07.1 [facility] [id number] [place] [address] Oct, [facility] [id number] [place] [address] Oct, [facility] [address] [address] Oct, Low back pain M54.5 and Chest wall pain R07.89 [facility] [address] [address] Oct, Pleurodynia R07.81 [facility] [id number] [place] [address] Sep, Pleurodynia R07.81 and Other nerve root and plexus disorders G54.8 [facility] [id number] [place] [address] Aug, Chronic kidney disease N18.9 ; Encounter for immunization Z23 ; Chest wall pain R07.89 ; Urinary frequency R35.0 and Vertigo R42 [facility] [id number] [place] [address] Aug, [facility] [id number] [place] [address] Jul, [facility] [id number] [place] [address] Jul, [facility] [id number] [place] [address] Jun, [facility] [id number] [place] [address] Jun, [facility] [id number] [place] [address] May, [facility] [address] [facility] [id number] [address] May, [facility] [address] [facility] [id number] [address] May, [facility] [id number] [address] May, Coronary atherosclerosis of unspecified type of vessel, [place] or graft 414.00 [facility] [address] [id number] [address] Apr, [facility] [id number] [place] [address] Apr, [facility] [address] [facility] [id number] [address] Apr, [facility] [address] [place] [address] Apr, [facility] [address] [id number] [address] Apr, [facility] [address] [address] Apr, Coronary atherosclerosis of unspecified type of vessel, [place] or graft 414.00 and Left-sided chest wall pain 786.52 [facility] [address] [facility] [id number] [address] Mar, [facility] [address] [facility] [id number], [place] [address] Mar, [facility] [address] [facility] [id number], [place] [address] Feb, [facility] [address] [facility] [id number] [address] Feb, [facility] [id number] [address] January, [facility] [address] [id number] [place] [address] January, [facility] [place] [facility] [address] [id number] [place] [address] January, [facility] [place] [facility] [address] [id number] [place] [address] January, Neuropathic pain of chest 353.8 [facility] [place] [facility] [address] [id number] [place] [address] Dec, [facility] [place] [facility] [address] [id number] [place] [address] Dec, [facility] [place] [facility] [address] [id number] [place] [address] Nov, [facility] [place] [facility] [address] [id number] [place] [address] Nov, [facility] [place] [facility] [address] [id number] [place] [address] Nov, [facility] [place] [facility] [address] [id number] [place] [address] Nov, [facility] [place] [facility] [address] [facility] [id number] [place] [address] Nov, [facility] [place] [facility] [address] [id number] [place] [address] Nov, [facility] [place] [facility] [address] [id number], [place] [address] Oct, [facility] [place] [facility] [address] [id number] [place] [address] Oct, [facility] [place] [facility] [address] [id number] [place] [address] Oct, [facility] [place] [facility] [address] [facility] [id number] [place] [address] Oct, [facility] [place] [facility] [address] [id number] [place] [address] Oct, [facility] [address] [id number] [place] [address] Oct, [facility] [address] [id number] [place] [address] Sep, [facility] [address] [id number] [place] [address] Sep, [facility] [address] [id number] [place] [address] Sep, [facility] [address] [id number] [place] [address] Sep, [facility] [address] [id number] [place] [address] Aug, [facility] [address] [id number] [place] [address] Aug, [facility] [address] [id number] [place] [address] Aug, [facility] [address] [id number] [place] [address] Aug, [facility] [address] [id number] [place] [address] Aug, [facility] [address] [id number] [place] [address] Aug, [facility] [address] [id number] [place] [address] Aug, [facility] [place] [facility] [address] [id number] [place] [address] Aug, [facility] [place] [facility] [address] [id number] [place] [address] Aug, [facility] [place] [facility] [address] [id number] [place] [address] Aug, [facility] [place] [facility] [address] [id number] [place] [address] Jul, [facility] [place] [facility] [address] [id number] [place] [address] Jul, [facility] [place] [facility] [address] [id number] [place] [address] Jul, [facility] [place] [facility] [address] [id number] [place] [address] Jul, [facility] [place] [facility] [address] [id number] [place] [address] Jun, [facility] [place] [facility] [address] [id number] [place] [address] Jun, [facility] [place] [facility] [address] [id number] [place] [address] Jun, [facility] [place] [facility] [address] [id number] [place] [address] Jun, [facility] [place] [facility] [address] [id number] [place] [address] May, [facility] [place] [facility] [address] [id number] [place] [address] May, [facility] [place] [facility] [address] [id number] [place] [address] May, [facility] [place] [facility] [address] [id number], [place] [address] May, [facility] [place] [facility] [address] [id number] [place] [address] Apr, [facility] [place] [facility] [address] [id number] [place] [address] Apr, [facility] [place] [facility] [address] [id number] [place] [address] Feb, [facility] [place] [facility] [address] [id number], [place] [address] January, [facility] [address] [id number] [place] [address] January, [facility] [place] [facility] [address] [id number] [place] [address] January, [facility] [place] [facility] [address] [id number] [place] [address] January, [facility] [place] [facility] [address] [id number] [place] [address] January, [facility] [place] [facility] [address] [id number] [place] [address] January, [facility] [place] [facility] [address] [id number] [place] [address] Dec, [facility] [place] [facility] [address] [id number] [place] [address] Dec, [facility] [place] [facility] [address] [id number] [place] [address] Dec, [facility] [place] [facility] [address] [id number] [place] [address] Dec, [facility] [place] [facility] [address] [id number] [place] [address] Dec, [facility] [place] [facility] [address] [id number] [place] [address] Dec, [facility] [place] [facility] [address] [id number] [place] [address] Dec, [facility] [place] [facility] [address] [id number] [place] [address] Dec, [facility] [place] [facility] [address] [id number] [place] [address] Nov, [facility] [place] [facility] [address] [id number] [place] [address] Nov, [facility] [place] [facility] [address] [id number] [place] [address] Nov, [facility] [place] [facility] [address] [id number] [place] [address] Nov, [facility] [place] [facility] [address] [id number] [place] [address] Nov, [facility] [place] [facility] [address] [id number] [place] [address] Nov, [facility] [place] [facility] [address] [id number] [place] [address] Nov, [facility] [place] [facility] [address] [id number] [place] [address] Oct, [facility] [place] [facility] [address] [id number] [place] [address] Oct, [facility] [place] [facility] [address] [id number] [place] [address] Oct, [facility] [place] [facility] [address] [id number] [place] [address] Oct, [facility] [place] [facility] [address] [id number] [place] [address] Sep, [facility] [place] [facility] [address] [id number] [place] [address] Sep, [facility] [place] [facility] [address] [id number] [place] [address] Sep, [facility] [place] [facility] [address] [id number] [place] [address] Sep, [facility] [place] [facility] [address] [id number] [place] [address] Aug, [facility] [place] [facility] [address] [id number] [place] [address] Aug, [facility] [place] [facility] [address] [id number] [place] [address] Jul, [facility] [place] [facility] [address] [id number] [place] [address] Jul, [facility] [place] [facility] [address] [id number] [place] [address] Jun, [facility] [place] [facility] [address] [id number] [place] [address] Jun, [facility] [place] [facility] [address] [id number] [place] [address] Jun, [facility] [place] [facility] [address] [id number] [place] [address] May, [facility] [place] [facility] [address] [id number] [place] [address] Apr, [facility] [place] [facility] [address] [id number] [place] [address] Apr, [facility] [place] [facility] [address] [id number] [place] [address] Mar, [facility] [place] [facility] [address] [id number] [place] [address] Feb, [facility] [place] [facility] [address] [id number] [place] [address] Feb, [facility] [place] [facility] [address] [id number] [place] [address] January, [facility] [place] [facility] [address] [id number][place] [address] January, [facility] [place] [facility] [address] [id number] [place] [address] Dec, [facility] [place] [facility] [address] [id number] [place] [address] Dec, [facility] [place] [facility] [address] [id number] [place] [address] Dec, [facility] [place] [facility] [address] [id number] [place] [address] 05 Dec, 2012 [facility] [address] [id number] [place] [address] Nov, [facility] [address] [id number] [place] [address] Nov, [facility] [address] [id number] [place] [address] Oct, [facility] [address] [id number] [place] [address] Oct, [facility] [address] [id number] [place] [address] Oct, [facility] [address] [id number] [place] [address] Sep, [facility] [address] [id number] [place] [address] Sep, [facility] [address] [id number] [place] [address] Sep, [facility] [address] [id number] [place] [address] Sep, [facility] [address] [id number] [place] [address] Sep, [facility] [address] [id number] [place] [address] Aug, [facility] [address] [id number] [place] [address] Aug, [facility] [place] [facility] [address] [id number] [place] [address] Aug, [facility] [address] [id number] [place] [address] Aug, [facility] [address] [id number] [place] [address] Jul, [facility] [place] [facility] [address] [id number] [place] [address] Jul, [facility] [place] [facility] [address] [id number] [place] [address] Jul, [facility] [place] [facility] [address] [id number] [place] [address] Jul, [facility] [place] [facility] [address] [id number] [place] [address] Jun, [facility] [place] [facility] [address] [id number] [place] [address] Jun, [facility] [place] [facility] [address] [id number] [place] [address] Jun, [facility] [place] [facility] [address] [id number] [place] [address] Jun, [facility] [place] [facility] [address] [id number] [place] [address] Jun, [facility] [place] [facility] [address] [id number] [place] [address] 24 May, 2012 [facility] [place] [facility] [address] [id number] [place] [address] 13 May, 2012 [facility] [place] [facility] [address] [id number] [place] [address] 12 May, 2012 [facility] [place] [facility] [address] [id number], [place] [address] 11 Sep2011 [facility] [place] [facility] [address] [id number] [place] [address] 10 Sep2011 [facility] [place] [facility] [address] [id number] [place] [address] 06 Sep2011 [facility] [place] [facility] [address] [id number] [place] [address] 05 Sep2011 [facility] [place] [facility] [address] [id number] [place] [address] Apr, [facility] [place] [facility] [address] [id number] [place] [address] Apr, [facility] [place] [facility] [address] [id number] [place] [address] Apr, [facility] [place] [facility] [address] [id number] [place] [address] Apr, [facility] [place] [facility] [address] [id number] [place] [address] Apr, [facility] [place] [facility] [address] [id number] [place] [address] Apr, [facility] [place] [facility] [address] [id number] [place] [address] Apr, [facility] [place] [facility] [address] [id number] [place] [address] Apr, [facility] [place] [facility] [address] [id number] [place] [address] Mar, [facility] [place] [facility] [address] [id number] [place] [address] Mar, [facility] [place] [facility] [address] [id number] [place] [address] Mar, [facility] [place] [facility] [address] [id number] [place] [address] Feb, [facility] [place] [facility] [address] [id number] [place] [address] January, [facility] [place] [facility] [address] [id number] [place] [address] January, [facility] [place] [facility] [address] [id number] [place] [address] January, [facility] [place] [facility] [address] [id number] [place] [address] Dec, [facility] [place] [facility] [address] [facility] [id number] [place] [address] Dec, [facility] [address] [facility] [id number] [address] Dec, [facility] [address] [facility] [id number], [place] [address] Dec, [facility] [address] [facility] [id number], [place] [address] Dec, [facility] [address] [facility] [id number], [place] [address] Dec, IMMUNIZATIONS No Known Immunizations SOCIAL HISTORY Never Assessed REASON FOR VISIT Medication changes PLAN OF CARE VITAL SIGNS MEDICATIONS Unknown [...] 04/02/2012 Surgical History appendectomy age 10 at [facility] Surgical History cholecystectomy-[facility] 2007 Surgical History coronary artery bypass graft LAD 02/2012 Surgical History heart cath x2 after bypass, pt has 5 stents Hospitalization History Chest pain, dizziness, renal insuff, heat cath showed CAD ([facility]) 01/03/2012 Hospitalization History CABG ([facility]) Dr. Banks 02/2012
--- OUTSIDE RECORDS SUMMARY | 2019-05-03 09:42 | XMS REPORT ---
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 Active 9082030407603 Problem Anemia, unspecified type D64.9 Active 071086806 Problem Vertigo R42 Active 557254022 Problem Mixed hyperlipidemia E78.2 Active 471404823 Problem Iron deficiency anemia, unspecified iron deficiency anemia type D50.9 Active 60439833 ALLERGIES No Information ENCOUNTERS Encounter Location Date Diagnosis [place] [id number] [place] [address] May, [facility] [id number] [place] [address] Apr, Chest wall pain R07.89 [facility] [id number] [place] [address] Apr, [facility] [id number] [place] [address] Apr, Chest wall pain R07.89 ; Chronic kidney disease N18.9 ; Iron deficiency anemia, unspecified iron deficiency anemia type D50.9 ; Chronic fatigue R53.82 ; Coronary artery disease involving [employer] coronary artery of [employer] heart without angina pectoris I25.10 and Anemia, unspecified type D64.9 [facility] [id number] [place] [address] Apr, Chest wall pain R07.89 [facility] [address] [address] Mar, Chest wall pain R07.89 [facility] [id number] [place] [address] Feb, Chest wall pain R07.89 [facility] [id number] [place] [address] January, Chest wall pain R07.89 [facility] [id number] [place] [address] Dec, Chest wall pain R07.89 ; Coronary artery disease involving [employer] coronary artery of match[employer] heart without angina pectoris I25.10 and Vertigo R42 [facility] [id number] [place] [address] Dec, Chest wall pain R07.89 [facility] [id number] [place] [address] Nov, Chest wall pain R07.89 [facility] [id number] [place] [address] Oct, Chest wall pain R07.89 [facility] [id number] [place] [address] Sep, Chest wall pain R07.89 and Pleurodynia R07.81 [facility] [id number] [place] [address] Sep, [facility] [id number] [place] [address] Sep, Chest wall pain R07.89 and Sore throat J02.9 [facility] [id number] [place] [address] Sep, [facility] [id number] [place] [address] Sep, Sore throat J02.9 and Acute nasopharyngitis J00 [facility] [address] [address] Sep, [facility] [id number] [place] [address] Aug, Chest wall pain R07.89 [facility] [id number] [place] [address] Jul, Chest wall pain R07.89 [facility] [id number] [place] [address] Jul, [facility] [id number] [place] [address] Jul, Chest wall pain R07.89 [facility] [id number] [place] [address] Jul, Chest wall pain R07.89 ; Chronic fatigue R53.82 ; Anemia, unspecified type D64.9 ; Vertigo R42 and Coronary artery disease involving [employer] coronary artery of match[place] [employer] heart without angina pectoris I25.10 [facility] [id number] [place] [address] Jun, Chest wall pain R07.89 [facility] [id number] [place] [address] Apr, Chest wall pain R07.89 [facility] [id number] [place] [address] Apr, [facility] [id number] [place] [address] Apr, Dental abscess K04.7 [facility] [id number] [place] [address] Apr, [facility] [id number] [place] [address] Apr, Chest wall pain R07.89 [facility] [id number] [place] [address] 07 Mar, 2017 Chest wall pain R07.89 [facility] [id number] [place] [address] 15 Feb, 2017 Chest wall pain R07.89 ; Lateral epicondylitis of right elbow M77.11 and Mixed hyperlipidemia E78.2 [place] [id number] [place] [address] 07 Feb, 2017 Chest wall pain R07.89 [facility] [id number] [place] [address] January, [place] [id number] [place] [address] January, Chest wall pain R07.89 [place] [id number] [place] [address] Dec, Chest wall pain R07.89 [place] [id number] [place] [address] Nov, [place] [id number] [place] [address] 24 Nov, 2016 Hypokalemia E87.6 [place] [id number] [place] [address] Nov, Hypokalemia E87.6 and Iron deficiency anemia, unspecified iron deficiency anemia type D50.9 [place] [id number] [place] [address] Nov, [place] [id number] [place] [address] 21 Nov, 2016 Nausea R11.0 and Hypovolemia E86.1 [place] [id number] [place] [address] 20 Nov, 2016 [place] [id number] [place] [address] Nov, [facility] [address] [address] Nov, Chest wall pain R07.89 [facility] [id number] [place] [address] Nov, Bronchitis J40 [facility] [id number] [place] [address] Oct, Chest wall pain R07.89 [facility] [id number] [place] [address] Sep, Chest wall pain R07.89 [facility] [id number] [place] [address] Aug, Chest wall pain R07.89 [facility] [id number] [place] [address] Aug, Chest pain on breathing R07.1 [facility] [id number] [place] [address] Jul, [facility] [id number] [place] [address] Jun, [facility] [id number] [place] [address] May, Chest wall pain R07.89 ; Iron deficiency anemia, unspecified iron deficiency anemia type D50.9 ; Chronic kidney disease N18.9 and Encounter for immunization Z23 [facility] [address] [address] May, [facility] [id number] [place] [address] Apr, [facility] [id number] [place] [address] Mar, [facility] [id number] [place] [address] Mar, [facility] [id number] [place] [address] Feb, [place] [id number] [place] [address] Feb, Iron deficiency anemia, unspecified iron deficiency anemia type D50.9 [facility] [id number] [place] [address] Feb, Dehydration E86.0 ; Diarrhea, unspecified type R19.7 ; Dizziness R42 and Other specified hypotension I95.89 [place] [id number] [place] [address] Feb, Anemia, unspecified type D64.9 [place] [id number] [place] [address] January, Anemia, unspecified type D64.9 [place] [id number] [place] [address] January, Paresthesia R20.2 [place] [id number] [place] [address] January, Chest wall pain R07.89 [place] [id number] [place] [address] Dec, Insomnia G47.00 [place] [id number] [place] [address] Dec, Chest pain on breathing R07.1 [place] [id number] [place] [address] Nov, Chest pain on breathing R07.1 [place] [id number] [place] [address] Oct, [place] [id number] [place] [address] Oct, [place] [id number] [place] [address] Oct, Low back pain M54.5 and Chest wall pain R07.89 [facility] [address] [address] Oct, Pleurodynia R07.81 [facility] [id number] [place] [address] Sep, Pleurodynia R07.81 and Other nerve root and plexus disorders G54.8 [facility] [address] [address] Aug, Chronic kidney disease N18.9 ; Encounter for immunization Z23 ; Chest wall pain R07.89 ; Urinary frequency R35.0 and Vertigo R42 [facility] [id number] [place] [address] Aug, [facility] [address] [address] Jul, [facility] [id number] [place] [address] Jul, [facility] [address] [address] Jun, [facility] [id number] [place] [address] Jun, [facility] [id number] [place] [address] May, [facility] [id number] [place] [address] May, [facility] [address] [address] May, [facility] [id number] [place] [address] May, Coronary atherosclerosis of unspecified type of vessel, [employer] or graft 414.00 [facility] [address] [place] [address] Apr, [facility] [address] [address] Apr, [facility] [address] [address] Apr, [facility] [address] [address] Apr, [facility] [id number] [place] [address] Apr, [facility] [id number] [place] [address] Apr, Coronary atherosclerosis of unspecified type of vessel, [employer] [employer] or graft 414.00 and Left-sided chest wall pain 786.52 [facility] [address] [address] Mar, [facility] [id number] [address] Mar, [facility] [address] [address] Feb, [facility] [address] [address] Feb, [facility] [address] [address] January, [facility] [address] [address] January, [facility] [address] [address] January, [facility] [address] [address] January, Neuropathic pain of chest 353.8 [facility] [address] [address] Dec, [facility] [place] [facility] [address] [id number] [place] [address] Dec, [facility] [place] [facility] [address] [id number] [place] [address] Nov, [facility] [place] [facility] [address] [id number] [place] [address] Nov, [facility] [place] [facility] [address] [id number] [place] [address] Nov, [facility] [place] [facility] [address] [id number] [place] [address] Nov, [facility] [place] [facility] [address] [id number] [place] [address] Nov, [facility] [place] [facility] [address] [facility] [id number] [place] [address] Nov, [facility] [place] [facility] [address] [id number] [place] [address] Oct, [facility] [place] [facility] [address] [id number] [place] [address] Oct, [facility] [place] [facility] [address] [id number] [place] [address] Oct, [facility] [place] [facility] [address] [id number] [place] [address] Oct, [facility] [place] [facility] [address] [id number] [address] Oct, [facility] [place] [facility] [address] [id number] [place] [address] Oct, [facility] [place] [facility] [address] [id number] [place] [address] Sep, [facility] [place] [facility] [address] [id number] [place] [address] Sep, [facility] [place] [facility] [address] [id number] [place] [address] Sep, [facility] [place] [facility] [address] [id number] [place] [address] Sep, [facility] [place] [facility] [address] [id number] [place] [address] Aug, [facility] [place] [facility] [address] [id number] [place] [address] Aug, [facility] [place] [facility] [address] [id number] [place] [address] Aug, [facility] [place] [facility] [address] [id number] [place] [address] Aug, [facility] [place] [facility] [address] [id number] [place] [address] Aug, [facility] [place] [facility] [address] [id number] [place] [address] Aug, [facility] [place] [facility] [address] [id number] [place] [address] Aug, [facility] [place] [facility] [address] [id number] [place] [address] Aug, [facility] [place] [facility] [address] [id number] [place] [address] Aug, [facility] [place] [facility] [address] [id number] [place] [address] Aug, [facility] [place] [facility] [address] [id number] [place] [address] Jul, [facility] [place] [facility] [address] [id number] [place] [address] Jul, [facility] [place] [facility] [address] [id number] [place] [address] Jul, [facility] [place] [facility] [address] [id number] [place] [address] Jul, [facility] [place] [facility] [address] [id number] [place] [address] Jun, [facility] [place] [facility] [address] [id number] [place] [address] Jun, [facility] [place] [facility] [address] [id number] [place] [address] Jun, [facility] [place] [facility] [address] [id number] [place] [address] Jun, [facility] [place] [facility] [address] [id number] [place] [address] May, [facility] [place] [facility] [address] [id number] [place] [address] May, [facility] [place] [facility] [address] [id number] [place] [address] May, [facility] [place] [facility] [address] [id number] [place] [address] May, [facility] [place] [facility] [address] [id number] [place] [address] Apr, [facility] [place] [facility] [address] [id number] [place] [address] Apr, [facility] [place] [facility] [address] [id number] [place] [address] Feb, [facility] [place] [facility] [address] [id number] [place] [address] January, [facility] [place] [facility] [address] [id number] [place] [address] January, [facility] [place] [facility] [address] [id number] [place] [address] January, [facility] [place] [facility] [address] [id number] [place] [address] January, [facility] [place] [facility] [address] [id number] [place] [address] January, [facility] [place] [facility] [address] [id number] [place] [address] January, [facility] [place] [facility] [address] [id number] [place] [address] Dec, [facility] [place] [facility] [address] [id number] [place] [address] Dec, [facility] [place] [facility] [address] [id number] [place] [address] Dec, [facility] [place] [facility] [address] [id number] [place] [address] Dec, [facility] [place] [facility] [address] [id number] [place] [address] Dec, [facility] [place] [facility] [address] [id number] [place] [address] Dec, [facility] [place] [facility] [address] [id number] [place] [address] Dec, [facility] [place] [facility] [address] [id number] [place] [address] Dec, [facility] [place] [facility] [address] [id number] [place] [address] Nov, [facility] [place] [facility] [address] [id number] [place] [address] Nov, [facility] [place] [facility] [address] [id number] [place] [address] Nov, [facility] [place] [facility] [address] [id number] [place] [address] Nov, [facility] [place] [facility] [address] [id number] [place] [address] Nov, [facility] [place] [facility] [address] [id number] [place] [address] Nov, [facility] [place] [facility] [address] [id number] [place] [address] Nov, [facility] [place] [facility] [address] [id number] [place] [address] Oct, [facility] [place] [facility] [address] [id number] [place] [address] Oct, [facility] [place] [facility] [address] [id number] [place] [address] Oct, [facility] [place] [facility] [address] [id number] [place] [address] Oct, [facility] [place] [facility] [address] [id number] [place] [address] Sep, [facility] [place] [facility] [address] [id number] [place] [address] Sep, [facility] [place] [facility] [address] [id number] [place] [address] Sep, [facility] [place] [facility] [address] [id number] [place] [address] Sep, [facility] [place] [facility] [address] [id number] [place] [address] Aug, [facility] [place] [facility] [address] [id number] [place] [address] Aug, [facility] [place] [facility] [address] [id number] [place] [address] Jul, [facility] [place] [facility] [address] [id number] [place] [address] Jul, [facility] [place] [facility] [address] [id number] [place] [address] Jun, [facility] [place] [facility] [address] [id number] [place] [address] Jun, [facility] [place] [facility] [address] [id number] [place] [address] Jun, [facility] [address] [id number] [place] [address] May, [facility] [place] [facility] [address] [id number] [place] [address] Apr, [facility] [place] [facility] [address] [id number] [place] [address] Apr, [facility] [place] [facility] [address] [id number] [place] [address] Mar, [facility] [address] [id number] [place] [address] Feb, [facility] [place] [facility] [address] [id number] [place] [address] Feb, [facility] [place] [facility] [address] [id number] [place] [address] January, [facility] [place] [facility] [address] [id number] [place] [address] January, [facility] [place] [facility] [address] [id number] [place] [address] Dec, [facility] [place] [facility] [address] [id number] [place] [address] Dec, [facility] [place] [facility] [address] [id number] [place] [address] Dec, [facility] [place] [facility] [address] [id number] [place] [address] Dec, [facility] [place] [facility] [address] [id number] [place] [address] Nov, [facility] [place] [facility] [address] [id number] [place] [address] Nov, [facility] [place] [facility] [address] [id number] [place] [address] Oct, [facility] [place] [facility] [address] [id number] [place] [address] 28 Oct, 2012 [facility] [address] [id number] [place] [address] Oct, [facility] [place] [facility] [address] [id number] [place] [address] Sep, [facility] [address] [id number] [place] [address] Sep, [facility] [place] [facility] [address] [id number] [place] [address] Sep, [facility] [address] [id number] [place] [address] Sep, [facility] [address] [id number] [place] [address] Sep, [facility] [address] [id number] [place] [address] Aug, [facility] [address] [id number] [place] [address] Aug, [facility] [address] [id number] [place] [address] Aug, [facility] [address] [facility] [id number] [place] [address] Aug, [facility] [address] [id number] [place] [address] Jul, [facility] [place] [facility] [address] [id number] [place] [address] Jul, [facility] [place] [facility] [address] [id number] [place] [address] Jul, [facility] [place] [facility] [address] [id number] [place] [address] Jul, [facility] [place] [facility] [address] [id number] [place] [address] Jun, [facility] [place] [facility] [address] [id number] [place] [address] Jun, [facility] [place] [facility] [address] [id number] [place] [address] Jun, [facility] [place] [facility] [address] [id number] [place] [address] 05 Jun, 2012 [facility] [place] [facility] [address] [id number] [place] [address] Jun, [facility] [place] [facility] [address] [id number] [place] [address] 24 May, 2012 [facility] [place] [facility] [address] [id number] [place] [address] 13 May, 2012 [facility] [place] [facility] [address] [id number] [place] [address] 12 May, 2012 [facility] [place] [facility] [address] [id number] [place] [address] 11 May, 2012 [facility] [place] [facility] [address] [id number] [place] [address] 10 May, 2012 [facility] [place] [facility] [address] [id number] [place] [id number] 06 May, 2012 [facility] [place] [facility] [address] [id number] [place] [address] 05 May, 2012 [facility] [place] [facility] [address] [id number] [place] [address] 30 Apr, 2012 [facility] [place] [facility] [address] [id number] [place] [address] Apr, [facility] [place] [facility] [address] [id number] [place] [address] Apr, [facility] [place] [facility] [address] [id number] [place] [address] Apr, [facility] [place] [facility] [address] [id number] [place] [address] Apr, [facility] [place] [facility] [address] [id number] [place] [address] Apr, [facility] [place] [facility] [address] [id number] [place] [address] Apr, [facility] [place] [facility] [address] [id number] [place] [address] Apr, [facility] [place] [facility] [address] [id number] [place] [address] Mar, [facility] [place] [facility] [address] [id number] [place] [address] Mar, [facility] [place] [facility] [address] [id number] [place] [address] Mar, [facility] [place] [facility] [address] [id number] [place] [address] Feb, [facility] [place] [facility] [address] [id number] [place] [address] January, [facility] [place] [facility] [address] [id number] [place] [address] January, [facility] [place] [facility] [address] [id number] [place] [address] January, [facility] [place] [facility] [address] [id number] [place] [address] Dec, [facility] [place] [facility] [address] [id number] [place] [address] Dec, [facility] [place] [facility] [address] [id number] [place] [address] Dec, [facility] [place] [facility] [address] [id number] [place] [address] Dec, [facility] [place] [facility] [address] [id number] [place] [address] Dec, [facility] [place] [facility] [address] [id number] [place] [address] Dec, IMMUNIZATIONS No Known Immunizations SOCIAL HISTORY Never Assessed REASON FOR VISIT Hydrocodone and Temazepam due 04/09 PLAN OF CARE VITAL SIGNS MEDICATIONS Medication Instructions Dosage Frequency Start Date End Date Duration Status Hydrocodone-Acetaminophen 7.5-325 MG Orally, 5 times per day 2 tablet Mar, 30 days Active Temazepam 30 MG Orally [...] 04/02/2012 Surgical History appendectomy age 10 at [facility] Surgical History cholecystectomy-[facility] 2007 Surgical History coronary artery bypass graft LAD 02/2012 Surgical History heart cath x2 after bypass, pt has 5 stents Hospitalization History Chest pain, dizziness, renal insuff, heat cath showed CAD ([facility]) 01/03/2012 Hospitalization History CABG ([facility]) Dr. Banks 02/2012
--- OUTSIDE RECORDS SUMMARY | 2019-05-03 09:42 | XMS REPORT ---
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 Active 9727638144173 Problem Anemia, unspecified type D64.9 Active 683346363 Problem Vertigo R42 Active 961800081 Problem Mixed hyperlipidemia E78.2 Active 811785466 Problem Iron deficiency anemia, unspecified iron deficiency anemia type D50.9 Active 33641349 ALLERGIES No Information ENCOUNTERS Encounter Location Date Diagnosis [place] [id number] [place] [address] May, [place] [id number] [place] [address] 11 May, 2018 Medicare annual wellness visit, initial Z00.00 ; Chest wall pain R07.89 ; Mixed hyperlipidemia E78.2 ; 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 ; History of smoking Z87.891 and Chronic kidney disease N18.9 [facility] [id number] [place] [address] May, Chest wall pain R07.89 [facility] [id number] [place] [address] Apr, Chest wall pain R07.89 [facility] [id number] [place] [address] Apr, [place] [address] [address] [id number] [address] Apr, Chest wall pain R07.89 ; Chronic kidney disease N18.9 ; Iron deficiency anemia, unspecified iron deficiency anemia type D50.9 ; Chronic fatigue R53.82 ; 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 and Anemia, unspecified type D64.9 [place] [address] [place] [id number] [place] [address] Apr, Chest wall pain R07.89 [place] [address] [place] [address] [id number] [place] [address] Mar, Chest wall pain R07.89 [place] [address] [place] [id number] [place] [address] Feb, Chest wall pain R07.89 [place] [address] [place] [address] [id number] [place] [address] January, Chest wall pain R07.89 [place] [address] [place] [address] [id number] [place] [address] Dec, Chest wall pain R07.89 ; 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 and Vertigo R42 [place] [id number] [address] Dec, Chest wall pain R07.89 [place] [address] [place] [id number] [place] [address] Nov, Chest wall pain R07.89 [place] [address] [place] [address] [id number] [place] [address] Oct, Chest wall pain R07.89 [place] [address] [place] [id number] [place] [address] Sep, Chest wall pain R07.89 and Pleurodynia R07.81 [place] [address] [place] [address] Sep, [facility] [id number] [place] [address] Sep, Chest wall pain R07.89 and Sore throat J02.9 [facility] [id number] [place] [address] Sep, [facility] [id number] [place] [address] Sep, Sore throat J02.9 and Acute nasopharyngitis J00 [facility] [id number] [place] [address] Sep, [facility] [id number] [place] [address] Aug, Chest wall pain R07.89 [facility] [id number] [place] [address] Jul, Chest wall pain R07.89 [facility] [id number] [place] [address] Jul, [facility] [id number] [place] [address] Jul, Chest wall pain R07.89 [facility] [id number] [place] [address] Jul, Chest wall pain R07.89 ; Chronic fatigue R53.82 ; Anemia, unspecified type D64.9 ; Vertigo R42 and 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 [facility] [id number] [place] [address] Jun, Chest wall pain R07.89 [facility] [id number] [place] [address] Apr, Chest wall pain R07.89 [facility] [id number] [place] [address] Apr, [facility] [id number] [place] [address] Apr, Dental abscess K04.7 [facility] [id number] [place] [address] Apr, [facility] [id number] [place] [address] Apr, Chest wall pain R07.89 [facility] [id number] [place] [address] Mar, Chest wall pain R07.89 [facility] [id number] [place] [address] 15 Feb, 2017 Chest wall pain R07.89 ; Lateral epicondylitis of right elbow M77.11 and Mixed hyperlipidemia E78.2 [facility] [id number] [place] [address] Feb, Chest wall pain R07.89 [facility] [id number] [place] [address] January, [facility] [id number] [place] [address] January, Chest wall pain R07.89 [facility] [id number] [place] [address] Dec, Chest wall pain R07.89 [facility] [id number] [place] [address] Nov, [facility] [id number] [place] [address] Nov, Hypokalemia E87.6 [facility] [address] [place] [address] Nov, Hypokalemia E87.6 and Iron deficiency anemia, unspecified iron deficiency anemia type D50.9 [facility] [address] [address] Nov, [facility] [id number] [place] [address] Nov, Nausea R11.0 and Hypovolemia E86.1 [facility] [id number] [place] [address] Nov, [facility] [id number] [place] [address] Nov, [facility] [id number] [place] [address] Nov, Chest wall pain R07.89 [facility] [id number] [place] [address] Nov, Bronchitis J40 [facility] [address] [id number] [place] [address] 09 Oct, 2016 Chest wall pain R07.89 [facility] [id number] [place] [address] Sep, Chest wall pain R07.89 [facility] [id number] [place] [address] Aug, Chest wall pain R07.89 [facility] [address] [place] [address] Aug, Chest pain on breathing R07.1 [facility] [address] [place] [address] 10 Jul, 2016 [facility] [address] [place] [id number] [place] [address] 07 Jun, 2016 [facility] [address] [place] [address] 16 May, 2016 Chest wall pain R07.89 ; Iron deficiency anemia, unspecified iron deficiency anemia type D50.9 ; Chronic kidney disease N18.9 and Encounter for immunization Z23 [facility] [id number] [place] [address] May, [facility] [id number] [place] [address] Apr, [facility] [id number] [place] [address] Mar, [facility] [address] [address] Mar, [facility] [address] [id number] [place] [address] Feb, [place] [address] [address] Feb, Iron deficiency anemia, unspecified iron deficiency anemia type D50.9 [facility] [address] [address] Feb, Dehydration E86.0 ; Diarrhea, unspecified type R19.7 ; Dizziness R42 and Other specified hypotension I95.89 [place] [address] [place] [id number] [place] [address] Feb, Anemia, unspecified type D64.9 [place] [address] [id number] [place] [address] January, Anemia, unspecified type D64.9 [place] [address] [place] [id number] [place] [address] January, Paresthesia R20.2 [place] [address] [place] [id number] [place] [address] January, Chest wall pain R07.89 [place] [address] [place] [id number] [place] [address] Dec, Insomnia G47.00 [place] [address] [place] [id number] [place] [address] Dec, Chest pain on breathing R07.1 [facility] [id number] [place] [address] Nov, Chest pain on breathing R07.1 [facility] [id number] [place] [address] Oct, [facility] [id number] [place] [address] Oct, [facility] [address] [address] Oct, Low back pain M54.5 and Chest wall pain R07.89 [facility] [address] [address] Oct, Pleurodynia R07.81 [facility] [id number] [place] [address] Sep, Pleurodynia R07.81 and Other nerve root and plexus disorders G54.8 [facility] [id number] [place] [address] Aug, Chronic kidney disease N18.9 ; Encounter for immunization Z23 ; Chest wall pain R07.89 ; Urinary frequency R35.0 and Vertigo R42 [facility] [id number] [place] [address] Aug, [facility] [id number] [place] [address] Jul, [facility] [id number] [place] [address] Jul, [facility] [id number] [place] [address] Jun, [facility] [id number] [place] [address] Jun, [facility] [id number] [place] [address] May, [facility] [address] [facility] [id number] [address] May, [facility] [address] [facility] [id number], [place] [address] May, [facility] [id number] [address] May, Coronary atherosclerosis of unspecified type of vessel, mary's igloo or graft 414.00 [facility] [address] [id number], [place] [address] Apr, [facility] [id number] [place] [address] Apr, [facility] [address] [facility] [id number], [place] [address] Apr, [facility] [address] [place] [address] Apr, [facility] [address] [id number], [place] [address] Apr, [facility] [address] [place] [address] Apr, Coronary atherosclerosis of unspecified type of vessel, mary's igloo or graft 414.00 and Left-sided chest wall pain 786.52 [facility] [address] [facility] [id number], [place] [address] Mar, [facility] [address] [facility] [id number], [place] [address] Mar, [facility] [address] [facility] [id number], [place] [address] Feb, [facility] [address] [facility] [id number], [place] [address] Feb, [facility] [id number], [place] [address] January, [facility] [address] [id number] [place] [address] January, [facility] [place] [facility] [address] [id number] [place] [address] January, [facility] [place] [facility] [address] [id number] [place] [address] January, Neuropathic pain of chest 353.8 [facility] [place] [facility] [address] [id number] [place] [address] Dec, [facility] [place] [facility] [address] [id number] [place] [address] Dec, [facility] [place] [facility] [address] [id number] [place] [address] Nov, [facility] [place] [facility] [address] [id number] [place] [address] Nov, [facility] [place] [facility] [address] [id number] [place] [address] Nov, [facility] [place] [facility] [address] [id number] [place] [address] Nov, [facility] [place] [facility] [address] [facility] [id number] [place] [address] Nov, [facility] [place] [facility] [address] [id number] [place] [address] Nov, [facility] [place] [facility] [address] [id number], [place] [address] Oct, [facility] [place] [facility] [address] [id number] [place] [address] Oct, [facility] [place] [facility] [address] [id number] [place] [address] Oct, [facility] [place] [facility] [address] [facility] [id number] [place] [address] Oct, [facility] [place] [facility] [address] [id number] [place] [address] Oct, [facility] [address] [id number] [place] [address] Oct, [facility] [address] [id number] [place] [address] Sep, [facility] [address] [id number] [place] [address] Sep, [facility] [address] [id number] [place] [address] Sep, [facility] [address] [id number] [place] [address] Sep, [facility] [address] [id number] [place] [address] Aug, [facility] [address] [id number] [place] [address] Aug, [facility] [address] [id number] [place] [address] Aug, [facility] [address] [id number] [place] [address] Aug, [facility] [address] [id number] [place] [address] Aug, [facility] [address] [id number] [place] [address] Aug, [facility] [address] [id number] [place] [address] Aug, [facility] [place] [facility] [address] [id number] [place] [address] Aug, [facility] [place] [facility] [address] [id number] [place] [address] Aug, [facility] [place] [facility] [address] [id number] [place] [address] Aug, [facility] [place] [facility] [address] [id number] [place] [address] Jul, [facility] [place] [facility] [address] [id number] [place] [address] Jul, [facility] [place] [facility] [address] [id number] [place] [address] Jul, [facility] [place] [facility] [address] [id number] [place] [address] Jul, [facility] [place] [facility] [address] [id number] [place] [address] Jun, [facility] [place] [facility] [address] [id number] [place] [address] Jun, [facility] [place] [facility] [address] [id number] [place] [address] Jun, [facility] [place] [facility] [address] [id number] [place] [address] Jun, [facility] [place] [facility] [address] [id number] [place] [address] May, [facility] [place] [facility] [address] [id number] [place] [address] May, [facility] [place] [facility] [address] [id number] [place] [address] May, [facility] [place] [facility] [address] [id number], [place] [address] May, [facility] [place] [facility] [address] [id number] [place] [address] Apr, [facility] [place] [facility] [address] [id number] [place] [address] Apr, [facility] [place] [facility] [address] [id number] [place] [address] Feb, [facility] [place] [facility] [address] [id number], [place] [address] January, [facility] [address] [id number] [place] [address] January, [facility] [place] [facility] [address] [id number] [place] [address] January, [facility] [place] [facility] [address] [id number] [place] [address] January, [facility] [place] [facility] [address] [id number] [place] [address] January, [facility] [place] [facility] [address] [id number] [place] [address] January, [facility] [place] [facility] [address] [id number] [place] [address] Dec, [facility] [place] [facility] [address] [id number] [place] [address] Dec, [facility] [place] [facility] [address] [id number] [place] [address] Dec, [facility] [place] [facility] [address] [id number] [place] [address] Dec, [facility] [place] [facility] [address] [id number] [place] [address] Dec, [facility] [place] [facility] [address] [id number] [place] [address] Dec, [facility] [place] [facility] [address] [id number] [place] [address] Dec, [facility] [place] [facility] [address] [id number] [place] [address] Dec, [facility] [place] [facility] [address] [id number] [place] [address] Nov, [facility] [place] [facility] [address] [id number] [place] [address] Nov, [facility] [place] [facility] [address] [id number] [place] [address] Nov, [facility] [place] [facility] [address] [id number] [place] [address] Nov, [facility] [place] [facility] [address] [id number] [place] [address] Nov, [facility] [place] [facility] [address] [id number] [place] [address] Nov, [facility] [place] [facility] [address] [id number] [place] [address] Nov, [facility] [place] [facility] [address] [id number] [place] [address] Oct, [facility] [place] [facility] [address] [id number] [place] [address] Oct, [facility] [place] [facility] [address] [id number] [place] [address] Oct, [facility] [place] [facility] [address] [id number] [place] [address] Oct, [facility] [place] [facility] [address] [id number] [place] [address] Sep, [facility] [place] [facility] [address] [id number] [place] [address] Sep, [facility] [place] [facility] [address] [id number] [place] [address] Sep, [facility] [place] [facility] [address] [id number] [place] [address] Sep, [facility] [place] [facility] [address] [id number] [place] [address] Aug, [facility] [place] [facility] [address] [id number] [place] [address] Aug, [facility] [place] [facility] [address] [id number] [place] [address] Jul, [facility] [place] [facility] [address] [id number] [place] [address] Jul, [facility] [place] [facility] [address] [id number] [place] [address] Jun, [facility] [place] [facility] [address] [id number] [place] [address] Jun, [facility] [place] [facility] [address] [id number] [place] [address] Jun, [facility] [place] [facility] [address] [id number] [place] [address] May, [facility] [place] [facility] [address] [id number] [place] [address] Apr, [facility] [place] [facility] [address] [id number] [place] [address] Apr, [facility] [place] [facility] [address] [id number] [place] [address] Mar, [facility] [place] [facility] [address] [id number] [place] [address] Feb, [facility] [place] [facility] [address] [id number] [place] [address] Feb, [facility] [place] [facility] [address] [id number] [place] [address] January, [facility] [place] [facility] [address] [id number], [place] [address] January, [facility] [place] [facility] [address] [id number] [place] [address] Dec, [facility] [place] [facility] [address] [id number] [place] [address] Dec, [facility] [place] [facility] [address] [id number] [place] [address] Dec, [facility] [place] [facility] [address] [id number] [place] [address] 05 Dec, 2012 [facility] [address] [id number] [place] [address] Nov, [facility] [address] [id number] [place] [address] Nov, [facility] [address] [id number] [place] [address] Oct, [facility] [address] [id number] [place] [address] Oct, [facility] [address] [id number] [place] [address] Oct, [facility] [address] [id number] [place] [address] Sep, [facility] [address] [id number] [place] [address] Sep, [facility] [address] [id number] [place] [address] Sep, [facility] [address] [id number] [place] [address] Sep, [facility] [address] [id number] [place] [address] Sep, [facility] [address] [id number] [place] [address] Aug, [facility] [address] [id number] [place] [address] Aug, [facility] [place] [facility] [address] [id number] [place] [address] Aug, [facility] [address] [id number] [place] [address] Aug, [facility] [address] [id number] [place] [address] Jul, [facility] [place] [facility] [address] [id number] [place] [address] Jul, [facility] [place] [facility] [address] [id number] [place] [address] Jul, [facility] [place] [facility] [address] [id number] [place] [address] Jul, [facility] [place] [facility] [address] [id number] [place] [address] Jun, [facility] [place] [facility] [address] [id number] [place] [address] Jun, [facility] [place] [facility] [address] [id number] [place] [address] Jun, [facility] [place] [facility] [address] [id number] [place] [address] Jun, [facility] [place] [facility] [address] [id number] [place] [address] Jun, [facility] [place] [facility] [address] [id number] [place] [address] 24 May, 2012 [facility] [place] [facility] [address] [id number] [place] [address] 13 May, 2012 [facility] [place] [facility] [address] [id number] [place] [address] 12 May, 2012 [facility] [place] [facility] [address] [id number], [place] [address] 11 Sep2011 [facility] [place] [facility] [address] [id number] [place] [address] 10 Sep2011 [facility] [place] [facility] [address] [id number] [place] [address] 06 Sep2011 [facility] [place] [facility] [address] [id number] [place] [address] 05 Sep2011 [facility] [place] [facility] [address] [id number] [place] [address] Apr, [facility] [place] [facility] [address] [id number] [place] [address] Apr, [facility] [place] [facility] [address] [id number] [place] [address] Apr, [facility] [place] [facility] [address] [id number] [place] [address] Apr, [facility] [place] [facility] [address] [id number] [place] [address] Apr, [facility] [place] [facility] [address] [id number] [place] [address] Apr, [facility] [place] [facility] [address] [id number] [place] [address] Apr, [facility] [place] [facility] [address] [id number] [place] [address] Apr, [facility] [place] [facility] [address] [id number] [place] [address] Mar, [facility] [place] [facility] [address] [id number] [place] [address] Mar, [facility] [place] [facility] [address] [id number] [place] [address] Mar, [facility] [place] [facility] [address] [id number] [place] [address] Feb, [facility] [place] [facility] [address] [id number] [place] [address] January, [facility] [place] [facility] [address] [id number] [place] [address] January, [facility] [place] [facility] [address] [id number] [place] [address] January, [facility] [place] [facility] [address] [id number] [place] [address] Dec, [facility] [place] [facility] [address] [facility] [id number] [place] [address] Dec, [facility] [address] [facility] [id number], [place] [address] Dec, [facility] [address] [facility] [id number], [place] [address] Dec, [facility] [address] [facility] [id number], [place] [address] Dec, [facility] [address] [facility] [id number], [place] [address] Dec, IMMUNIZATIONS No Known Immunizations SOCIAL HISTORY Never Assessed REASON FOR VISIT Controlled Med Refill 05/07 PLAN OF CARE VITAL SIGNS MEDICATIONS Medication Instructions Dosage Frequency Start Date End Date Duration Status Hydrocodone-Acetaminophen 7.5-325 MG Orally, 5 times per day 2 tablet Apr, 30 days Active Temazepam 30 MG Orally [...] 04/02/2012 Surgical History appendectomy age 10 at [facility] Surgical History cholecystectomy-[facility] Gonzalez 2007 Surgical History coronary artery bypass graft LAD 02/2012 Surgical History heart cath x2 after bypass, pt has 5 stents Hospitalization History Chest pain, dizziness, renal insuff, heat cath showed CAD ([facility]) 01/03/2012 Hospitalization History CABG ([facility]) Dr. Banks 02/2012
--- OUTSIDE RECORDS SUMMARY | 2019-05-03 09:43 | XMS REPORT ---
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 Active 6212350856420 Problem Anemia, unspecified type D64.9 Active 810094617 Problem Vertigo R42 Active 407993032 Problem Mixed hyperlipidemia E78.2 Active 491477356 Problem Iron deficiency anemia, unspecified iron deficiency anemia type D50.9 Active 31396305 ALLERGIES No Information ENCOUNTERS Encounter Location Date Diagnosis [place] [id number] [place] [address] May, [facility] [id number] [place] [address] 23 Apr, 2018 Chest wall pain R07.89 ; Chronic kidney disease N18.9 ; Iron deficiency anemia, unspecified iron deficiency anemia type D50.9 ; Chronic fatigue R53.82 ; Coronary artery disease involving otoe-missouria coronary artery of otoe-missouria heart without angina pectoris I25.10 and Anemia, unspecified type D64.9 [place] [id number] [place] [address] Apr, Chest wall pain R07.89 [facility] [id number] [place] [address] Mar, Chest wall pain R07.89 [facility] [address] [place] [id number] [place] [address] Feb, Chest wall pain R07.89 [facility] [address] [place] [address] [id number] [place] [address] January, Chest wall pain R07.89 [facility] [address] [place] [id number] [place] [address] Dec, Chest wall pain R07.89 ; Coronary artery disease involving otoe-missouria coronary artery of otoe-missouria heart without angina pectoris I25.10 and Vertigo R42 [facility] [address] [place] [id number] [place] [address] Dec, Chest wall pain R07.89 [place] [address] [address] Nov, Chest wall pain R07.89 [place] [address] [address] Oct, Chest wall pain R07.89 [place] [address] [place] [id number] [place] [address] Sep, Chest wall pain R07.89 and Pleurodynia R07.81 [place] [address] [place] [id number] [place] [address] Sep, [place] [address] [place] [id number] [place] [address] Sep, Chest wall pain R07.89 and Sore throat J02.9 [place] [address] [place] [id number] [place] [address] Sep, [facility] [address] [place] [id number] [place] [address] Sep, Sore throat J02.9 and Acute nasopharyngitis J00 [place] [address] [place] [id number] [place] [address] Sep, [place] [address] [place] [id number] [place] [address] Aug, Chest wall pain R07.89 [facility] [address] [facility] [id number] [address] Jul, Chest wall pain R07.89 [facility] [address] [facility] [id number] [place] [address] Jul, [facility] [address] [place] [id number] [place] [address] Jul, Chest wall pain R07.89 [facility] [address] [facility] [id number] [place] [address] Jul, Chest wall pain R07.89 ; Chronic fatigue R53.82 ; Anemia, unspecified type D64.9 ; Vertigo R42 and Coronary artery disease involving otoe-missouria coronary artery of otoe-missouria heart without angina pectoris I25.10 [facility] [address] [place] [id number] [place] [address] Jun, Chest wall pain R07.89 [facility] [address] [facility] [id number] [place] [address] Apr, Chest wall pain R07.89 [facility] [address] [place] [id number] [place] [address] Apr, [facility] [address] [place] [id number] [place] [address] Apr, Dental abscess K04.7 [facility] [address] [place] [id number] [place] [address] Apr, [facility] [address] [facility] [id number] [place] [address] Apr, Chest wall pain R07.89 [facility] [address] [place] [id number] [place] [address] Mar, Chest wall pain R07.89 [facility] [address] [place] [id number] [place] [address] Feb, Chest wall pain R07.89 ; Lateral epicondylitis of right elbow M77.11 and Mixed hyperlipidemia E78.2 [facility] [address] [place] [id number] [place] [address] 07 Feb, 2017 Chest wall pain R07.89 [facility] [address] [place] [id number] [place] [address] January, [facility] [address] [place] [id number] [place] [address] January, Chest wall pain R07.89 [facility] [address] [place] [id number] [place] [address] Dec, Chest wall pain R07.89 [place] [address] [place] [id number] [place] [address] Nov, [place] [address] [place] [id number] [place] [address] Nov, Hypokalemia E87.6 [place] [address] [place] [id number] [place] [address] Nov, Hypokalemia E87.6 and Iron deficiency anemia, unspecified iron deficiency anemia type D50.9 [place] [address] [place] [id number] [place] [address] Nov, [place] [address] [place] [id number] [place] [address] Nov, Nausea R11.0 and Hypovolemia E86.1 [place] [address] [place] [id number] [place] [address] Nov, [place] [address] [place] [id number] [place] [address] 13 Nov, 2016 [facility] [address] [place] [id number] [place] [address] 10 Nov, 2016 Chest wall pain R07.89 [facility] [address] [place] [id number] [place] [address] Nov, Bronchitis J40 [facility] [address] [place] [id number] [place] [address] Oct, Chest wall pain R07.89 [facility] [address] [place] [id number] [place] [address] Sep, Chest wall pain R07.89 [facility] [address] [place] [id number] [place] [address] Aug, Chest wall pain R07.89 [facility] [address] [place] [id number] [place] [address] Aug, Chest pain on breathing R07.1 [place] [address] [place] [id number] [place] [address] Jul, [facility] [address] [place] [id number] [place] [address] Jun, [facility] [address] [place] [id number] [place] [address] May, Chest wall pain R07.89 ; Iron deficiency anemia, unspecified iron deficiency anemia type D50.9 ; Chronic kidney disease N18.9 and Encounter for immunization Z23 [facility] [address] [place] [id number] [place] [address] May, [facility] [address] [place] [address] Apr, [facility] [address] [place] [id number] [place] [address] Mar, [facility] [address] [place] [id number] [place] [address] Mar, [facility] [address] [place] [id number] [place] [address] Feb, [facility] [address] [place] [address] Feb, Iron deficiency anemia, unspecified iron deficiency anemia type D50.9 [facility] [address] [place] [id number] [place] [address] 07 Feb, 2016 Dehydration E86.0 ; Diarrhea, unspecified type R19.7 ; Dizziness R42 and Other specified hypotension I95.89 [facility] [address] [place] [id number] [place] [address] Feb, Anemia, unspecified type D64.9 [facility] [address] [place] [id number] [place] [address] January, Anemia, unspecified type D64.9 [place] [address] [address] January, Paresthesia R20.2 [place] [address] [place] [id number] [place] [address] January, Chest wall pain R07.89 [place] [address] [address] Dec, Insomnia G47.00 [place] [address] [address] Dec, Chest pain on breathing R07.1 [place] [address] [place] [id number] [place] [address] Nov, Chest pain on breathing R07.1 [place] [address] [place] [id number] [place] [address] Oct, [place] [address] [place] [id number] [place] [address] Oct, [place] [address] [address] Oct, Low back pain M54.5 and Chest wall pain R07.89 [facility] [address] [place] [id number] [place] [address] Oct, Pleurodynia R07.81 [place] [address] [place] [id number] [place] [address] Sep, Pleurodynia R07.81 and Other nerve root and plexus disorders G54.8 [facility] [address] [place] [id number] [place] [address] Aug, Chronic kidney disease N18.9 ; Encounter for immunization Z23 ; Chest wall pain R07.89 ; Urinary frequency R35.0 and Vertigo R42 [facility] [address] [address] Aug, [facility] [address] [address] Jul, [facility] [address] [place] [id number] [place] [address] Jul, [facility] [address] [address] Jun, [facility] [address] [place] [id number] [place] [address] Jun, [facility] [address] [place] [id number] [place] [address] May, [facility] [address] [place] [id number] [place] [address] May, [facility] [address] [place] [id number] [place] [address] May, [facility] [address] [place] [id number] [place] [address] May, Coronary atherosclerosis of unspecified type of vessel, otoe-missouria or graft 414.00 [facility] [address] [place] [id number] [place] [address] Apr, [facility] [address] [place] [id number] [place] [address] Apr, [facility] [address] [address] Apr, [facility] [address] [id number] [address] Apr, [facility] [address] [facility] [id number] [place] [address] Apr, [facility] [address] [address] Apr, Coronary atherosclerosis of unspecified type of vessel, otoe-missouria or graft 414.00 and Left-sided chest wall pain 786.52 [facility] [address] [id number] [place] [address] Mar, [facility] [id number] [place] [address] Mar, [facility] [address] [address] Feb, [facility] [address] [address] Feb, [facility] [address] [place] [id number] [address] January, [facility] [address] [place] [id number] [address] January, [facility] [address] [address] January, [facility] [address] [address] January, Neuropathic pain of chest 353.8 [facility] [address] [id number] [address] Dec, [facility] [address] [facility] [id number] [place] [address] Dec, [facility] [address] [place] [id number] [address] Nov, [facility] [place] [facility] [address] [id number] [place] [address] Nov, [facility] [place] [facility] [address] [id number] [place] [address] Nov, [facility] [place] [facility] [address] [id number] [place] [address] Nov, [facility] [place] [facility] [address] [id number] [place] [address] Nov, [facility] [place] [facility] [address] [id number] [place] [address] Nov, [facility] [place] [facility] [address] [id number] [place] [address] Oct, [facility] [place] [facility] [address] [id number] [place] [address] Oct, [facility] [place] [facility] [address] [id number] [place] [address] Oct, [facility] [place] [facility] [address] [id number] [place] [address] Oct, [facility] [place] [facility] [address] [id number] [place] [address] Oct, [facility] [place] [facility] [address] [id number] [place] [address] Oct, [facility] [place] [facility] [address] [id number] [place] [address] Sep, [facility] [place] [facility] [address] [id number] [place] [address] Sep, [facility] [place] [facility] [address] [id number] [place] [address] Sep, [facility] [place] [facility] [address] [id number] [place] [address] Sep, [facility] [place] [facility] [address] [id number] [place] [address] Aug, [facility] [place] [facility] [address] [id number] [place] [address] Aug, [facility] [place] [facility] [address] [id number] [place] [address] Aug, [facility] [place] [facility] [address] [id number] [place] [address] Aug, [facility] [place] [facility] [address] [id number] [place] [address] Aug, [facility] [place] [facility] [address] [id number] [place] [address] Aug, [facility] [place] [facility] [address] [id number] [place] [address] Aug, [facility] [place] [facility] [address] [id number] [place] [address] Aug, [facility] [place] [facility] [address] [id number] [place] [address] Aug, [facility] [place] [facility] [address] [id number] [place] [address] Aug, [facility] [place] [facility] [address] [id number] [place] [address] Jul, [facility] [place] [facility] [address] [id number] [place] [address] Jul, [facility] [place] [facility] [address] [id number] [place] [address] Jul, [facility] [place] [facility] [address] [id number] [place] [address] Jul, [facility] [place] [facility] [address] [id number] [place] [address] Jun, [facility] [place] [facility] [address] [id number] [place] [address] Jun, [facility] [place] [facility] [address] [id number] [place] [address] Jun, [facility] [address] [id number] [place] [address] Jun, [facility] [place] [facility] [address] [id number] [place] [address] May, [facility] [address] [id number] [place] [address] May, [facility] [place] [facility] [address] [id number] [place] [address] May, [facility] [address] [id number] [place] [address] May, [facility] [address] [id number] [place] [address] Apr, [facility] [place] [facility] [address] [id number] [place] [address] Apr, [facility] [address] [id number] [place] [address] Feb, [facility] [address] [id number] [place] [address] January, [facility] [address] [id number] [place] [address] January, [facility] [place] [facility] [address] [id number] [place] [address] January, [facility] [address] [id number] [place] [address] January, [facility] [place] [facility] [address] [id number] [place] [address] January, [facility] [place] [facility] [address] [id number] [place] [address] January, [facility] [place] [facility] [address] [id number] [place] [address] Dec, [facility] [place] [facility] [address] [id number] [place] [address] Dec, [facility] [place] [facility] [address] [id number] [place] [address] Dec, [facility] [place] [facility] [address] [id number] [place] [address] Dec, [facility] [place] [facility] [address] [id number] [place] [address] Dec, [facility] [place] [facility] [address] [id number] [place] [address] Dec, [facility] [place] [facility] [address] [id number] [place] [address] Dec, [facility] [place] [facility] [address] [id number] [place] [address] Dec, [facility] [place] [facility] [address] [id number] [place] [address] Nov, [facility] [place] [facility] [address] [id number] [place] [address] Nov, [facility] [place] [facility] [address] [id number] [place] [address] Nov, [facility] [place] [facility] [address] [id number] [place] [address] Nov, [facility] [place] [facility] [address] [id number] [place] [address] Nov, [facility] [place] [facility] [address] [id number] [place] [address] Nov, [facility] [place] [facility] [address] [id number] [place] [address] Nov, [facility] [place] [facility] [address] [id number] [place] [address] Oct, [facility] [place] [facility] [address] [id number] [place] [address] Oct, [facility] [place] [facility] [address] [id number] [place] [address] Oct, [facility] [place] [facility] [address] [id number] [place] [address] Oct, [facility] [place] [facility] [address] [id number] [place] [address] Sep, [facility] [place] [facility] [address] [id number] [place] [address] Sep, [facility] [place] [facility] [address] [id number] [place] [address] Sep, [facility] [place] [facility] [address] [id number] [place] [address] Sep, [facility] [place] [facility] [address] [id number] [place] [address] Aug, [facility] [place] [facility] [address] [id number] [place] [address] Aug, [facility] [place] [facility] [address] [id number] [place] [address] Jul, [facility] [place] [facility] [address] [facility] [id number] [place] [address] Jul, [facility] [place] [facility] [address] [id number] [place] [address] Jun, [facility] [place] [facility] [address] [id number] [place] [address] Jun, [facility] [place] [facility] [address] [id number] [place] [address] Jun, [facility] [place] [facility] [address] [id number] [place] [address] May, [facility] [place] [facility] [address] [id number] [place] [address] Apr, [facility] [place] [facility] [address] [id number] [place] [address] Apr, [facility] [address] [id number] [place] [address] Mar, [facility] [place] [facility] [address] [id number] [place] [address] Feb, [facility] [place] [facility] [address] [id number] [place] [address] Feb, [facility] [address] [id number] [place] [address] January, [facility] [place] [facility] [address] [id number] [place] [address] January, [facility] [address] [id number] [place] [address] Dec, [facility] [facility] [address] [id number] [place] [address] Dec, [facility] [address] [id number] [place] [address] Dec, [facility] [address] [id number] [place] [address] Dec, [facility] [place] [facility] [address] [id number] [place] [address] Nov, [facility] [place] [facility] [address] [id number] [place] [address] Nov, [facility] [place] [facility] [address] [id number] [place] [address] Oct, [facility] [place] [facility] [address] [id number] [place] [address] Oct, [facility] [place] [facility] [address] [id number] [place] [address] Oct, [facility] [place] [facility] [address] [id number] [address] Sep, [facility] [place] [facility] [address] [id number] [place] [address] Sep, [facility] [place] [facility] [address] [id number] [place] [address] Sep, [facility] [place] [facility] [address] [id number] [place] [address] Sep, [facility] [place] [facility] [address] [id number] [place] [address] Sep, [facility] [place] [facility] [address] [id number] [place] [address] Aug, [facility] [place] [facility] [address] [id number] [place] [address] Aug, [facility] [place] [facility] [address] [id number] [place] [address] Aug, [facility] [place] [facility] [address] [id number] [place] [address] Aug, [facility] [place] [facility] [address] [id number] [place] [address] Jul, [facility] [place] [facility] [address] [id number] [place] [address] Jul, [facility] [place] [facility] [address] [id number] [place] [address] Jul, [facility] [place] [facility] [address] [id number] [place] [address] Jul, [facility] [place] [facility] [address] [id number] [place] [address] Jun, [facility] [place] [facility] [address] [id number] [place] [address] Jun, [facility] [place] [facility] [address] [id number] [place] [address] Jun, [facility] [place] [facility] [address] [id number] [place] [address] 05 Jun, 2012 [facility] [place] [facility] [address] [id number] [place] [address] 02 Jun, 2012 [facility] [place] [facility] [address] [id number] [place] [address] 24 May, 2012 [facility] [place] [facility] [address] [id number] [place] [address] 13 May, 2012 [facility] [place] [facility] [address] [id number] [place] [address] 12 May, 2012 [facility] [place] [facility] [address] [id number] [place] [address] 11 May, 2012 [facility] [place] [facility] [address] [id number] [place] [place] [id number] 10 May, 2012 [facility] [place] [facility] [address] [id number] [place] [address] 06 May, 2012 [facility] [place] [facility] [address] [id number] [place] [address] 05 May, 2012 [facility] [place] [facility] [address] [id number] [place] [address] 30 Apr, 2012 [facility] [place] [facility] [address] [id number] [place] [address] Apr, [facility] [place] [facility] [address] [id number] [place] [address] Apr, [facility] [place] [facility] [address] [id number] [place] [address] Apr, [facility] [place] [facility] [address] [id number] [place] [address] Apr, [facility] [place] [facility] [address] [id number] [place] [address] Apr, [facility] [place] [facility] [address] [id number] [place] [address] Apr, [facility] [id number] [address] Apr, [facility] [id number] [address] Mar, [facility] [id number] [address] Mar, [facility] [address] [facility] [id number] [address] Mar, [facility] [address] [facility] [id number] [address] Feb, [facility] [id number] [address] January, [facility] [id number] [address] January, [facility] [id number] [address] January, [facility] [id number] [address] Dec, [facility] [id number] [address] Dec, [facility] [id number] [address] Dec, [facility] [id number] [address] Dec, [facility] [id number] [address] Dec, [facility] [id number] [address] Dec, IMMUNIZATIONS No Known Immunizations SOCIAL HISTORY Never Assessed REASON FOR VISIT Temazepam and Hydrocodone 03/09 PLAN OF CARE VITAL SIGNS MEDICATIONS Medication Instructions Dosage Frequency Start Date End Date Duration Status Temazepam 30 MG Orally Once a day 1 capsule at bedtime as needed 24h 30 Active Hydrocodone-Acetaminophen 7.5-325 MG Orally, 5 times per day 2 tablet Feb, 30 days Active RESULTS No Results PROCEDURES [...] 04/02/2012 Surgical History appendectomy age 10 at [facility] Surgical History cholecystectomy-[facility] 2007 Surgical History coronary artery bypass graft LAD 02/2012 Surgical History heart cath x2 after bypass, pt has 5 stents Hospitalization History Chest pain, dizziness, renal insuff, heat cath showed CAD ([facility]) 01/03/2012 Hospitalization History CABG ([facility]) Dr. Banks 02/2012
--- OUTSIDE RECORDS SUMMARY | 2019-05-03 09:44 | XMS REPORT ---
Author Author BELEM FUENTES Organization [facility] Address [address] [place] [address] Care Team Providers Care Diploma Pharmacy Technician Name Role Phone BELEM FUENTES Unavailable PROBLEMS Type Condition ICD9-CM Code [id number] Code Onset Dates Condition Status SNOMED Code Problem Chronic kidney disease N18.9 Active 163410021 Problem Chest wall pain R07.89 Active 081279557 Problem Chronic fatigue R53.82 Active 73982841 Problem Coronary artery disease involving [place] coronary artery of [place] heart without angina pectoris I25.10 Active 3275876304460 Problem Anemia, unspecified type D64.9 Active 894833997 Problem Vertigo R42 Active 197730007 Problem Mixed hyperlipidemia E78.2 Active 724817249 Problem Iron deficiency anemia, unspecified iron deficiency anemia type D50.9 Active 65560526 ALLERGIES No Information ENCOUNTERS Encounter Location Date Diagnosis [place] [id number] [place] [address] May, [place] [address] [place] [id number] [place] [address] Apr, Chest wall pain R07.89 [facility] [id number] [place] [address] Mar, Chest wall pain R07.89 [facility] [id number] [place] [address] Feb, Chest wall pain R07.89 [facility] [address] [place] [address] [id number] [place] [address] January, Chest wall pain R07.89 [facility] [id number] [place] [address] Dec, Chest wall pain R07.89 ; Coronary artery disease involving [place] coronary artery of [place] heart without angina pectoris I25.10 and Vertigo R42 [facility] [id number] [place] [address] Dec, Chest wall pain R07.89 [facility] [id number] [place] [address] Nov, Chest wall pain R07.89 [facility] [id number] [place] [address] Oct, Chest wall pain R07.89 [facility] [id number] [place] [address] Sep, Chest wall pain R07.89 and Pleurodynia R07.81 [facility] [id number] [place] [address] Sep, [facility] [id number] [place] [address] Sep, Chest wall pain R07.89 and Sore throat J02.9 [facility] [id number] [place] [address] Sep, [facility] [id number] [place] [address] Sep, Sore throat J02.9 and Acute nasopharyngitis J00 [facility] [id number] [place] [address] Sep, [facility] [id number] [place] [address] Aug, Chest wall pain R07.89 [facility] [id number] [place] [address] Jul, Chest wall pain R07.89 [facility] [id number] [place] [address] Jul, [facility] [id number] [place] [address] Jul, Chest wall pain R07.89 [place] [address] [place] [id number] [place] [address] Jul, Chest wall pain R07.89 ; Chronic fatigue R53.82 ; Anemia, unspecified type D64.9 ; Vertigo R42 and Coronary artery disease involving [place] coronary artery of [place] heart without angina pectoris I25.10 [place] [address] [place] [address] [id number] [place] [address] Jun, Chest wall pain R07.89 [place] [address] [place] [address] [id number] [place] [address] Apr, Chest wall pain R07.89 [place] [address] [id number] [place] [address] Apr, [place] [address] [address] Apr, Dental abscess K04.7 [facility] [address] [place] [address] [id number] [place] [address] Apr, [place] [address] [place] [address] [id number] [place] [address] Apr, Chest wall pain R07.89 [place] [address] [place] [address] [id number] [place] [address] Mar, Chest wall pain R07.89 [facility] [address] [id number] [place] [address] Feb, Chest wall pain R07.89 ; Lateral epicondylitis of right elbow M77.11 and Mixed hyperlipidemia E78.2 [place] [address] [place] [id number] [place] [address] Feb, Chest wall pain R07.89 [facility] [address] [id number] [place] [address] January, [place] [address] [place] [address] [id number] [place] [address] January, Chest wall pain R07.89 [facility] [id number] [place] [address] Dec, Chest wall pain R07.89 [facility] [address] [id number] [place] [address] Nov, [facility] [address] [id number] [place] [address] Nov, Hypokalemia E87.6 [facility] [address] [place] [address] [id number] [place] [address] Nov, Hypokalemia E87.6 and Iron deficiency anemia, unspecified iron deficiency anemia type D50.9 [place] [address] [place] [address] [id number] [place] [address] Nov, [facility] [address] [place] [id number] [place] [address] Nov, Nausea R11.0 and Hypovolemia E86.1 [facility] [address] [place] [id number] [place] [address] Nov, [facility] [address] [place] [id number] [place] [address] Nov, [facility] [address] [place] [id number] [place] [address] Nov, Chest wall pain R07.89 [facility] [address] [place] [id number] [place] [address] Nov, Bronchitis J40 [facility] [address] [place] [id number] [place] [address] Oct, Chest wall pain R07.89 [facility] [address] [place] [address] Sep, Chest wall pain R07.89 [facility] [address] [place] [id number] [place] [address] Aug, Chest wall pain R07.89 [place] [address] [address] Aug, Chest pain on breathing R07.1 [place] [address] [place] [id number] [place] [address] Jul, [place] [address] [address] Jun, [facility] [address] [place] [id number] [place] [address] May, Chest wall pain R07.89 ; Iron deficiency anemia, unspecified iron deficiency anemia type D50.9 ; Chronic kidney disease N18.9 and Encounter for immunization Z23 [place] [address] [place] [id number] [place] [address] May, [place] [address] [place] [address] [id number] [place] [address] Apr, [place] [address] [place] [address] [id number] [place] [address] Mar, [place] [address] [place] [address] [id number] [place] [address] Mar, [place] [address] [place] [address] [id number] [place] [address] Feb, [place] [address] [place] [address] [id number] [place] [address] Feb, Iron deficiency anemia, unspecified iron deficiency anemia type D50.9 [facility] [address] [place] [id number] [place] [address] Feb, Dehydration E86.0 ; Diarrhea, unspecified type R19.7 ; Dizziness R42 and Other specified hypotension I95.89 [place] [address] [place] [id number] [place] [address] Feb, Anemia, unspecified type D64.9 [facility] [address] [place] [address] [id number] [place] [address] January, Anemia, unspecified type D64.9 [facility] [address] [place] [id number] [place] [address] January, Paresthesia R20.2 [facility] [address] [address] January, Chest wall pain R07.89 [facility] [address] [address] Dec, Insomnia G47.00 [place] [address] [address] Dec, Chest pain on breathing R07.1 [place] [address] [address] Nov, Chest pain on breathing R07.1 [facility] [address] [place] [id number] [place] [address] Oct, [facility] [address] [address] Oct, [facility] [address] [place] [id number] [place] [address] Oct, Low back pain M54.5 and Chest wall pain R07.89 [facility] [address] [place] [id number] [place] [address] Oct, Pleurodynia R07.81 [facility] [address] [place] [id number] [place] [address] Sep, Pleurodynia R07.81 and Other nerve root and plexus disorders G54.8 [facility] [address] [place] [id number] [place] [address] Aug, Chronic kidney disease N18.9 ; Encounter for immunization Z23 ; Chest wall pain R07.89 ; Urinary frequency R35.0 and Vertigo R42 [facility] [address] [place] [id number] [place] [address] Aug, [facility] [address] [place] [id number] [place] [address] Jul, [facility] [address] [place] [id number] [place] [address] Jul, [facility] [address] [place] [id number] [place] [address] Jun, [facility] [address] [place] [id number] [place] [address] Jun, [facility] [address] [id number] [place] [address] May, [facility] [address] [place] [id number] [place] [address] May, [facility] [address] [place] [id number] [place] [address] May, [facility] [address] [id number] [place] [address] May, Coronary atherosclerosis of unspecified type of vessel, [place] or graft 414.00 [facility] [address] [id number] [place] [address] Apr, [facility] [address] [id number] [place] [address] Apr, [facility] [address] [id number] [place] [address] Apr, [facility] [address] [place] [id number] [place] [address] Apr, [facility] [address] [id number] [place] [address] Apr, [facility] [address] [place] [id number] [place] [address] Apr, Coronary atherosclerosis of unspecified type of vessel, [place] or graft 414.00 and Left-sided chest wall pain 786.52 [facility] [address] [place] [id number] [address] Mar, [facility] [address] [facility] [id number] [address] Mar, [facility] [address] [facility] [id number] [place] [address] Feb, [facility] [address] [facility] [id number] [place] [address] Feb, [facility] [address] [place] [address] January, [facility] [address] [address] January, [facility] [address] [place] [address] January, [facility] [address] [place] [id number] [address] January, Neuropathic pain of chest 353.8 [facility] [address] [address] Dec, [facility] [address] [address] Dec, [facility] [address] [address] Nov, [facility] [address] [place] [id number] [address] Nov, [facility] [address] [place] [address] [id number] [address] Nov, [facility] [address] [place] [id number] [address] Nov, [facility] [address] [place] [address] Nov, [facility] [place] [facility] [address] [id number] [place] [address] Nov, [facility] [place] [facility] [address] [id number] [place] [address] Oct, [facility] [place] [facility] [address] [id number] [place] [address] Oct, [facility] [place] [facility] [address] [id number] [place] [address] Oct, [facility] [place] [facility] [address] [id number] [place] [address] Oct, [facility] [place] [facility] [address] [facility] [id number] [place] [address] Oct, [facility] [place] [facility] [address] [facility] [id number] [place] [address] Oct, [facility] [place] [facility] [address] [id number] [place] [address] Sep, [facility] [place] [facility] [address] [facility] [id number] [place] [address] Sep, [facility] [place] [facility] [address] [facility] [id number] [place] [address] Sep, [facility] [place] [facility] [address] [facility] [id number] [place] [address] Sep, [facility] [place] [facility] [address] [id number] [place] [address] Aug, [facility] [place] [facility] [address] [id number] [place] [address] Aug, [facility] [place] [facility] [address] [facility] [id number] [place] [address] Aug, [facility] [place] [facility] [address] [id number] [place] [address] Aug, [facility] [place] [facility] [address] [id number] [place] [address] Aug, [facility] [place] [facility] [address] [id number] [place] [address] Aug, [facility] [place] [facility] [address] [facility] [id number] [place] [address] Aug, [facility] [place] [facility] [address] [id number] [place] [address] Aug, [facility] [place] [facility] [address] [id number] [place] [address] Aug, [facility] [place] [facility] [address] [id number] [place] [address] Aug, [facility] [place] [facility] [address] [id number] [place] [address] Jul, [facility] [place] [facility] [address] [id number] [place] [address] Jul, [facility] [place] [facility] [address] [id number] [place] [address] Jul, [facility] [place] [facility] [address] [id number] [place] [address] Jul, [facility] [place] [facility] [address] [id number] [place] [address] Jun, [facility] [place] [facility] [address] [id number] [place] [address] Jun, [facility] [place] [facility] [address] [id number] [place] [address] Jun, [facility] [place] [facility] [address] [id number] [place] [address] Jun, [facility] [place] [facility] [address] [id number] [place] [address] May, [facility] [place] [facility] [address] [id number] [place] [address] May, [facility] [place] [facility] [address] [id number] [place] [address] May, [facility] [place] [facility] [address] [id number] [place] [address] May, [facility] [place] [facility] [address] [id number] [place] [address] Apr, [facility] [place] [facility] [address] [id number] [place] [address] Apr, [facility] [place] [facility] [address] [id number] [place] [address] Feb, [facility] [place] [facility] [address] [id number] [place] [address] January, [facility] [place] [facility] [address] [id number] [place] [address] January, [facility] [place] [facility] [address] [id number] [place] [address] January, [facility] [place] [facility] [address] [id number] [place] [address] January, [facility] [place] [facility] [address] [id number] [place] [address] January, [facility] [place] [facility] [address] [id number] [place] [address] January, [facility] [place] [facility] [address] [id number] [place] [address] Dec, [facility] [place] [facility] [address] [id number] [place] [address] Dec, [facility] [place] [facility] [address] [id number] [place] [address] Dec, [facility] [place] [facility] [address] [id number] [place] [address] Dec, [facility] [place] [facility] [address] [id number] [place] [address] Dec, [facility] [place] [facility] [address] [id number] [place] [address] Dec, [facility] [place] [facility] [address] [id number] [place] [address] Dec, [facility] [place] [facility] [address] [id number] [place] [address] Dec, [facility] [place] [facility] [address] [id number] [place] [address] Nov, [facility] [place] [facility] [address] [id number] [place] [address] Nov, [facility] [place] [facility] [address] [id number] [place] [address] Nov, [facility] [place] [facility] [address] [id number] [place] [address] Nov, [facility] [place] [facility] [address] [id number] [place] [address] Nov, [facility] [place] [facility] [address] [id number] [place] [address] Nov, [facility] [place] [facility] [address] [id number] [place] [address] Nov, [facility] [place] [facility] [address] [id number] [place] [address] Oct, [facility] [place] [facility] [address] [id number] [place] [address] Oct, [facility] [place] [facility] [address] [id number] [place] [address] Oct, [facility] [place] [facility] [address] [id number] [place] [address] Oct, [facility] [place] [facility] [address] [id number] [place] [address] Sep, [facility] [address] [id number] [place] [address] Sep, [facility] [place] [facility] [address] [id number] [place] [address] Sep, [facility] [place] [facility] [address] [id number] [place] [address] Sep, [facility] [place] [facility] [address] [id number] [place] [address] Aug, [facility] [place] [facility] [address] [id number] [place] [address] Aug, [facility] [place] [facility] [address] [id number] [place] [address] Jul, [facility] [place] [facility] [address] [id number] [place] [address] Jul, [facility] [place] [facility] [address] [id number] [place] [address] Jun, [facility] [place] [facility] [address] [id number] [place] [address] Jun, [facility] [place] [facility] [address] [id number] [place] [address] Jun, [facility] [place] [facility] [address] [id number] [place] [address] May, [facility] [place] [facility] [address] [id number] [place] [address] Apr, [facility] [place] [facility] [address] [id number] [place] [address] Apr, [facility] [place] [facility] [address] [id number] [place] [address] Mar, [facility] [place] [facility] [address] [id number] [place] [address] Feb, [facility] [place] [facility] [address] [id number] [place] [address] Feb, [facility] [address] [id number] [place] [address] January, [facility] [address] [id number] [place] [address] January, [facility] [address] [id number] [place] [address] Dec, [facility] [address] [id number] [place] [address] Dec, [facility] [address] [id number] [place] [address] Dec, [facility] [address] [id number] [place] [address] Dec, [facility] [address] [id number] [place] [address] Nov, [facility] [address] [id number] [place] [address] Nov, [facility] [address] [id number] [place] [address] Oct, [facility] [address] [id number] [place] [address] Oct, [facility] [address] [id number] [place] [address] Oct, [facility] [address] [id number] [place] [address] Sep, [facility] [place] [facility] [address] [id number] [place] [address] Sep, [facility] [place] [facility] [address] [id number] [place] [address] Sep, [facility] [place] [facility] [address] [id number] [place] [address] Sep, [facility] [place] [facility] [address] [id number] [place] [address] Sep, [facility] [place] [facility] [address] [id number] [place] [address] Aug, [facility] [place] [facility] [address] [id number] [place] [address] Aug, [facility] [place] [facility] [address] [id number] [place] [address] Aug, [facility] [place] [facility] [address] [id number] [place] [address] Aug, [facility] [place] [facility] [address] [id number] [place] [address] Jul, [facility] [place] [facility] [address] [id number] [place] [address] Jul, [facility] [place] [facility] [address] [id number] [place] [address] Jul, [facility] [place] [facility] [address] [id number] [place] [address] Jul, [facility] [place] [facility] [address] [id number] [place] [address] Jun, [facility] [place] [facility] [address] [id number] [place] [address] Jun, [facility] [place] [facility] [address] [id number] [place] [address] Jun, [facility] [place] [facility] [address] [id number] [place] [address] Jun, [facility] [place] [facility] [address] [id number] [place] [address] Jun, [facility] [place] [facility] [address] [id number] [place] [address] May, [facility] [place] [facility] [address] [id number] [place] [address] 13 May, 2011 [facility] [place] [facility] [address] [id number] [place] [address] 12 May, 2011 [facility] [place] [facility] [address] [id number] [place] [address] 11 May, 2011 [facility] [place] [facility] [address] [id number] [place] [address] 10 May, 2011 [facility] [place] [facility] [address] [id number] [place] [address] 06 May, 2012 [facility] [place] [facility] [address] [id number] [place] [address] 05 May, 2012 [facility] [place] [facility] [address] [id number] [place] [address] 30 Apr, 2012 [facility] [place] [facility] [address] [id number] [place] [address] Apr, [facility] [place] [facility] [address] [id number] [place] [address] Apr, [facility] [place] [facility] [address] [id number] [place] [address] Apr, [facility] [place] [facility] [address] [id number] [place] [address] Apr, [facility] [place] [facility] [address] [id number] [place] [address] Apr, [facility] [place] [facility] [address] [id number] [place] [address] Apr, [facility] [place] [facility] [address] [id number] [place] [address] Apr, [facility] [place] [facility] [address] [id number] [place] [address] Mar, [facility] [place] [facility] [address] [id number] [place] [address] Mar, [facility] [id number] [address] Mar, [facility] [id number] [place] [address] Feb, [facility] [id number] [place] [address] January, [facility] [id number] [place] [address] January, [facility] [id number] [place] [address] January, [facility] [id number] [place] [address] Dec, [facility] [id number] [place] [address] Dec, [facility] [id number] [place] [address] Dec, [facility] [id number] [place] [address] Dec, [facility] [id number] [place] [address] Dec, [facility] [address] [id number] [address] Dec, IMMUNIZATIONS No Known Immunizations SOCIAL HISTORY Never Assessed REASON FOR VISIT Hydrocodone and Temazepam- 02/20 PLAN OF CARE VITAL SIGNS MEDICATIONS Medication Instructions Dosage Frequency Start Date End Date Duration Status Temazepam 30 MG Orally Once a day 1 capsule at bedtime as needed 24h 30 Active Hydrocodone-Acetaminophen 7.5-325 MG Orally, 5 times per day 2 tablet January, 30 days Active RESULTS No Results PROCEDURES [...] History appendectomy age 10 at [facility] Surgical History cholecystectomy-[facility] 2007 Surgical History coronary artery bypass graft LAD 02/2012 Surgical History heart cath x2 after bypass, pt has 5 stents Hospitalization History Chest pain, dizziness, renal insuff, heat cath showed CAD ([facility]) 01/03/2012 Hospitalization History CABG ([facility]) Dr. Banks 02/2012
--- OUTSIDE RECORDS SUMMARY | 2019-05-03 09:44 | XMS REPORT ---
Author Author BEELM FUENTES Organization [facility] Address [address] [place] [address] Care Team Providers Care Utility Service Worker Name Role Phone BELEM FUENTES Unavailable PROBLEMS Type Condition ICD9-CM Code TJC15-IO Code Onset Dates Condition Status SNOMED Code Problem Chronic kidney disease N18.9 Active 066325216 Problem Chest wall pain R07.89 Active 343274736 Problem Chronic fatigue R53.82 Active 38455709 Problem Coronary artery disease involving [place] coronary artery of [place] heart without angina pectoris I25.10 Active 2850857804385 Problem Anemia, unspecified type D64.9 Active 323388466 Problem Vertigo R42 Active 868672737 Problem Mixed hyperlipidemia E78.2 Active 797857251 Problem Iron deficiency anemia, unspecified iron deficiency anemia type D50.9 Active 73974660 ALLERGIES No Information ENCOUNTERS Encounter Location Date Diagnosis [place] [id number] [place] [address] Mar, Chest wall pain R07.89 [place] [id number] [address] Feb, Chest wall pain R07.89 [place] [id number] [place] [address] January, Chest wall pain R07.89 [place] [id number] [place] [address] Dec, Chest wall pain R07.89 ; Coronary artery disease involving [place] coronary artery of [place] heart without angina pectoris I25.10 and Vertigo R42 [facility] [id number] [place] [address] Dec, Chest wall pain R07.89 [place] [id number] [place] [address] Nov, Chest wall pain R07.89 [facility] [id number] [place] [address] Oct, Chest wall pain R07.89 [facility] [id number] [place] [address] Sep, Chest wall pain R07.89 and Pleurodynia R07.81 [facility] [id number] [place] [address] Sep, [facility] [id number] [place] [address] Sep, Chest wall pain R07.89 and Sore throat J02.9 [facility] [id number] [place] [address] Sep, [facility] [id number] [place] [address] Sep, Sore throat J02.9 and Acute nasopharyngitis J00 [facility] [id number] [place] [address] Sep, [facility] [id number] [place] [address] Aug, Chest wall pain R07.89 [facility] [id number] [place] [address] Jul, Chest wall pain R07.89 [facility] [id number] [place] [address] Jul, [facility] [id number] [place] [address] Jul, Chest wall pain R07.89 [facility] [id number] [place] [address] Jul, Chest wall pain R07.89 ; Chronic fatigue R53.82 ; Anemia, unspecified type D64.9 ; Vertigo R42 and Coronary artery disease involving [place] coronary artery of [place] heart without angina pectoris I25.10 [facility] [id number] [place] [address] Jun, Chest wall pain R07.89 [facility] [id number] [place] [address] Apr, Chest wall pain R07.89 [facility] [id number] [place] [address] Apr, [facility] [id number] [place] [address] Apr, Dental abscess K04.7 [facility] [id number] [place] [address] Apr, [facility] [address] [address] Apr, Chest wall pain R07.89 [facility] [id number] [place] [address] Mar, Chest wall pain R07.89 [facility] [id number] [place] [address] Feb, Chest wall pain R07.89 ; Lateral epicondylitis of right elbow M77.11 and Mixed hyperlipidemia E78.2 [facility] [id number] [place] [address] Feb, Chest wall pain R07.89 [facility] [id number] [place] [address] January, [facility] [id number] [place] [address] January, Chest wall pain R07.89 [facility] [id number] [place] [address] Dec, Chest wall pain R07.89 [facility] [id number] [place] [address] Nov, [facility] [id number] [place] [address] 24 Nov, 2016 Hypokalemia E87.6 [facility] [id number] [place] [address] Nov, Hypokalemia E87.6 and Iron deficiency anemia, unspecified iron deficiency anemia type D50.9 [facility] [id number] [place] [address] Nov, [facility] [id number] [place] [address] Nov, Nausea R11.0 and Hypovolemia E86.1 [facility] [id number] [place] [address] Nov, [facility] [id number] [place] [address] Nov, [facility] [id number] [place] [address] Nov, Chest wall pain R07.89 [facility] [id number] [place] [address] Nov, Bronchitis J40 [facility] [id number] [place] [address] 09 Oct, 2016 Chest wall pain R07.89 [facility] [id number] [place] [address] Sep, Chest wall pain R07.89 [facility] [id number] [place] [address] Aug, Chest wall pain R07.89 [facility] [id number] [place] [address] Aug, Chest pain on breathing R07.1 [facility] [address] [address] Jul, [facility] [id number] [place] [address] Jun, [facility] [id number] [place] [address] 16 May, 2016 Chest wall pain R07.89 ; Iron deficiency anemia, unspecified iron deficiency anemia type D50.9 ; Chronic kidney disease N18.9 and Encounter for immunization Z23 [facility] [id number] [place] [address] May, [facility] [id number] [place] [address] Apr, [facility] [id number] [place] [address] Mar, [facility] [id number] [place] [address] Mar, [facility] [id number] [place] [address] Feb, [facility] [id number] [place] [address] Feb, Iron deficiency anemia, unspecified iron deficiency anemia type D50.9 [facility] [address] [place] [address] Feb, Dehydration E86.0 ; Diarrhea, unspecified type R19.7 ; Dizziness R42 and Other specified hypotension I95.89 [facility] [address] [place] [address] Feb, Anemia, unspecified type D64.9 [facility] [id number] [place] [address] January, Anemia, unspecified type D64.9 [facility] [id number] [place] [address] January, Paresthesia R20.2 [facility] [id number] [place] [address] January, Chest wall pain R07.89 [facility] [id number] [place] [address] Dec, Insomnia G47.00 [facility] [address] [address] Dec, Chest pain on breathing R07.1 [facility] [address] [address] Nov, Chest pain on breathing R07.1 [facility] [address] [address] Oct, [facility] [address] [address] Oct, [facility] [address] [address] Oct, Low back pain M54.5 and Chest wall pain R07.89 [facility] [address] [address] Oct, Pleurodynia R07.81 [facility] [id number] [place] [address] Sep, Pleurodynia R07.81 and Other nerve root and plexus disorders G54.8 [facility] [id number] [place] [address] Aug, Chronic kidney disease N18.9 ; Encounter for immunization Z23 ; Chest wall pain R07.89 ; Urinary frequency R35.0 and Vertigo R42 [facility] [id number] [place] [address] Aug, [facility] [address] [address] Jul, [facility] [address] [facility] [id number] [address] Jul, [facility] [address] [facility] [id number] [address] Jun, [facility] [id number] [address] Jun, [facility] [address] [facility] [id number] [place] [address] May, [facility] [address] [facility] [id number] [address] May, [facility] [address] [facility] [id number] [place] [address] May, [facility] [address] [facility] [id number] [address] May, Coronary atherosclerosis of unspecified type of vessel, [place] or graft 414.00 [facility] [address] [facility] [id number] [address] Apr, [facility] [id number] [address] Apr, [facility] [address] [address] Apr, [facility] [address] [address] Apr, [facility] [address] [facility] [id number] [address] Apr, [facility] [address] [facility] [id number] [address] Apr, Coronary atherosclerosis of unspecified type of vessel, [place] or graft 414.00 and Left-sided chest wall pain 786.52 [facility] [address] [facility] [id number] [place] [address] Mar, [facility] [address] [id number] [place] [address] Mar, [facility] [place] [facility] [address] [id number] [place] [address] Feb, [facility] [place] [facility] [address] [id number] [place] [address] Feb, [facility] [place] [facility] [address] [id number] [place] [address] January, [facility] [place] [facility] [address] [id number] [place] [address] January, [facility] [place] [facility] [address] [id number] [place] [address] January, [facility] [place] [facility] [address] [facility] [id number] [place] [address] January, Neuropathic pain of chest 353.8 [facility] [address] [id number] [place] [address] Dec, [facility] [place] [facility] [address] [id number] [place] [address] Dec, [facility] [place] [facility] [address] [facility] [id number] [address] Nov, [facility] [place] [facility] [address] [facility] [id number] [place] [address] Nov, [facility] [place] [facility] [address] [id number] [place] [address] Nov, [facility] [place] [facility] [address] [id number] [place] [address] Nov, [facility] [place] [facility] [address] [id number] [place] [address] Nov, [facility] [place] [facility] [address] [facility] [id number] [place] [address] Nov, [facility] [place] [facility] [address] [id number] [place] [address] Oct, 2014 [facility] [address] [id number] [place] [address] Oct, [facility] [place] [facility] [address] [id number] [place] [address] Oct, [facility] [place] [facility] [address] [id number] [place] [address] Oct, 2014 [facility] [place] [facility] [address] [id number] [place] [address] Oct, [facility] [place] [facility] [address] [id number] [place] [address] Oct, [facility] [place] [facility] [address] [id number] [place] [address] Sep, [facility] [place] [facility] [address] [facility] [id number] [place] [address] Sep, [facility] [address] [id number] [place] [address] Sep, [facility] [place] [facility] [address] [id number] [place] [address] Sep, [facility] [address] [facility] [id number] [place] [address] Aug, [facility] [place] [facility] [address] [id number] [place] [address] Aug, [facility] [place] [facility] [address] [id number] [place] [address] Aug, [facility] [place] [facility] [address] [id number] [place] [address] Aug, [facility] [place] [facility] [address] [id number] [place] [address] Aug, [facility] [place] [facility] [address] [id number] [place] [address] Aug, [facility] [place] [facility] [address] [id number] [place] [address] Aug, [facility] [place] [facility] [address] [id number] [place] [address] Aug, [facility] [place] [facility] [address] [id number] [place] [address] Aug, [facility] [place] [facility] [address] [id number] [place] [address] Aug, [facility] [place] [facility] [address] [id number] [place] [address] Jul, [facility] [place] [facility] [address] [id number] [place] [address] Jul, [facility] [place] [facility] [address] [id number] [place] [address] Jul, [facility] [place] [facility] [address] [id number] [place] [address] Jul, [facility] [place] [facility] [address] [id number] [place] [address] Jun, [facility] [place] [facility] [address] [id number] [place] [address] Jun, [facility] [place] [facility] [address] [id number] [place] [address] Jun, [facility] [place] [facility] [address] [id number] [address] Jun, [facility] [place] [facility] [address] [id number] [place] [address] May, [facility] [place] [facility] [address] [id number] [place] [address] May, [facility] [place] [facility] [address] [id number] [place] [address] May, [facility] [place] [facility] [address] [id number] [address] May, [facility] [place] [facility] [address] [id number] [place] [address] Apr, [facility] [place] [facility] [address] [id number] [place] [address] Apr, [facility] [place] [facility] [address] [id number] [place] [address] Feb, [facility] [place] [facility] [address] [id number] [place] [address] January, [facility] [place] [facility] [address] [id number] [place] [address] January, [facility] [place] [facility] [address] [id number] [place] [address] January, [facility] [place] [facility] [address] [id number] [place] [address] January, [facility] [place] [facility] [address] [id number] [place] [address] January, [facility] [place] [facility] [address] [id number] [place] [address] January, [facility] [place] [facility] [address] [id number] [place] [address] Dec, [facility] [place] [facility] [address] [id number] [place] [address] Dec, [facility] [place] [facility] [address] [id number] [place] [address] Dec, [facility] [place] [facility] [address] [id number] [place] [address] Dec, [facility] [place] [facility] [address] [id number] [place] [address] Dec, [facility] [place] [facility] [address] [id number] [place] [address] Dec, [facility] [place] [facility] [address] [id number] [place] [address] Dec, [facility] [place] [facility] [address] [id number] [place] [address] Dec, [facility] [place] [facility] [address] [id number] [place] [address] Nov, [facility] [place] [facility] [address] [id number] [place] [address] Nov, [facility] [place] [facility] [address] [id number] [place] [address] Nov, [facility] [place] [facility] [address] [id number] [place] [address] Nov, [facility] [place] [facility] [address] [id number] [place] [address] Nov, [facility] [place] [facility] [address] [id number] [place] [address] Nov, [facility] [place] [facility] [address] [id number] [place] [address] Nov, [facility] [place] [facility] [address] [id number] [place] [address] Oct, [facility] [place] [facility] [address] [id number] [place] [address] Oct, [facility] [place] [facility] [address] [id number] [place] [address] Oct, [facility] [place] [facility] [address] [id number] [place] [address] Oct, [facility] [place] [facility] [address] [id number] [place] [address] Sep, [facility] [place] [facility] [address] [id number] [place] [address] Sep, [facility] [place] [facility] [address] [id number] [place] [address] Sep, [facility] [place] [facility] [address] [id number] [place] [address] Sep, [facility] [place] [facility] [address] [id number] [place] [address] Aug, [facility] [place] [facility] [address] [id number] [place] [address] Aug, [facility] [place] [facility] [address] [id number] [place] [address] Jul, [facility] [place] [facility] [address] [id number] [place] [address] Jul, [facility] [place] [facility] [address] [id number] [place] [address] Jun, [facility] [place] [facility] [address] [id number] [place] [address] Jun, [facility] [place] [facility] [address] [id number] [place] [address] Jun, [facility] [place] [facility] [address] [id number] [place] [address] May, [facility] [place] [facility] [address] [id number] [place] [address] Apr, [facility] [place] [facility] [address] [id number] [place] [address] Apr, [facility] [place] [facility] [address] [id number] [address] Mar, [facility] [place] [facility] [address] [id number] [place] [address] Feb, [facility] [place] [facility] [address] [id number] [place] [address] Feb, [facility] [place] [facility] [address] [id number] [place] [address] January, [facility] [place] [facility] [address] [id number] [place] [address] January, [facility] [address] [id number] [place] [address] Dec, [facility] [address] [id number] [place] [address] Dec, [facility] [address] [id number] [place] [address] Dec, [facility] [address] [id number] [place] [address] Dec, [facility] [address] [id number] [place] [address] Nov, [facility] [address] [id number] [place] [address] Nov, [facility] [address] [id number] [place] [address] Oct, [facility] [address] [id number] [place] [address] Oct, [facility] [address] [id number] [place] [address] Oct, [facility] [address] [id number] [place] [address] Sep, [facility] [address] [id number] [place] [address] Sep, [facility] [address] [id number] [place] [address] Sep, [facility] [address] [id number] [place] [address] Sep, [facility] [address] [id number] [place] [address] Sep, [facility] [address] [id number] [place] [address] Aug, [facility] [place] [facility] [address] [id number] [place] [address] Aug, [facility] [place] [facility] [address] [id number] [place] [address] Aug, [facility] [place] [facility] [address] [id number] [place] [address] Aug, [facility] [place] [facility] [address] [id number] [place] [address] Jul, [facility] [place] [facility] [address] [id number] [place] [address] Jul, [facility] [place] [facility] [address] [id number] [place] [address] Jul, [facility] [place] [facility] [address] [id number] [place] [address] Jul, [facility] [place] [facility] [address] [id number] [place] [address] Jun, [facility] [place] [facility] [address] [id number] [place] [address] Jun, [facility] [place] [facility] [address] [id number] [place] [address] Jun, [facility] [place] [facility] [address] [id number] [place] [address] Jun, [facility] [place] [facility] [address] [id number] [address] Jun, [facility] [place] [facility] [address] [id number] [place] [address] 24 May, 2012 [facility] [place] [facility] [address] [id number] [place] [address] 13 May, 2012 [facility] [place] [facility] [address] [id number] [place] [address] 12 May, 2012 [facility] [place] [facility] [address] [id number] [place] [address] 11 May, 2012 [facility] [place] [facility] [address] [id number] [place] [address] 10 May, 2011 [facility] [place] [facility] [address] [id number] [place] [address] 06 May, 2012 [facility] [place] [facility] [address] [id number] [place] [address] 05 May, 2012 [facility] [place] [facility] [address] [id number] [place] [address] 30 Apr, 2012 [facility] [place] [facility] [address] [id number] [place] [address] Apr, [facility] [place] [facility] [address] [id number] [place] [address] Apr, [facility] [place] [facility] [address] [id number] [place] [address] Apr, [facility] [place] [facility] [address] [id number] [place] [address] Apr, [facility] [place] [facility] [address] [id number] [place] [address] Apr, [facility] [place] [facility] [address] [id number] [place] [address] Apr, [facility] [place] [facility] [address] [id number] [place] [address] Apr, [facility] [place] [facility] [address] [id number] [place] [address] Mar, [facility] [place] [facility] [address] [id number] [place] [address] Mar, [facility] [place] [facility] [address] [id number] [place] [address] Mar, [facility] [place] [facility] [address] [id number] [place] [address] Feb, [facility] [place] [facility] [id number] [address] January, [facility] [id number] [address] January, [facility] [id number] [address] January, [facility] [id number] [address] Dec, [facility] [id number] [address] Dec, [facility] [id number] [place] [address] Dec, [facility] [id number] [address] Dec, [facility] [id number] [address] Dec, [facility] [id number] [address] Dec, IMMUNIZATIONS No Known Immunizations SOCIAL HISTORY Never Assessed REASON FOR VISIT Hydrocodone and Temeazepam 01/22 PLAN OF CARE VITAL SIGNS MEDICATIONS Medication Instructions Dosage Frequency Start Date End Date Duration Status Temazepam 30 MG Orally Once a day 1 capsule at bedtime as needed 24h 30 Active Hydrocodone-Acetaminophen 7.5-325 MG Orally, 5 times per day 2 tablet Dec, 30 days Active RESULTS No Results PROCEDURES [...]
--- OUTSIDE RECORDS SUMMARY | 2019-05-03 09:45 | XMS REPORT ---
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 Active 3221283864083 Problem Anemia, unspecified type D64.9 Active 484857125 Problem Vertigo R42 Active 901680674 Problem Mixed hyperlipidemia E78.2 Active 960338636 Problem Iron deficiency anemia, unspecified iron deficiency anemia type D50.9 Active 33690565 ALLERGIES Substance Reaction Event Type Date Status Celebrex hot flashes Drug Allergy Dec, Active ENCOUNTERS Encounter Location Date Diagnosis [place] [id number] [place] [address] Mar, Chest wall pain R07.89 [place] [id number] [place] [address] Feb, Chest wall pain R07.89 [place] [id number] [place] [address] January, Chest wall pain R07.89 [place] [id number] [place] [address] Dec, Chest wall pain R07.89 ; Coronary artery disease involving nenana coronary artery of nenana heart without angina pectoris I25.10 and Vertigo R42 [place] [id number] [place] [address] Dec, Chest wall pain R07.89 [facility] [address] [facility] [id number] [address] Nov, Chest wall pain R07.89 [facility] [id number] [place] [address] Oct, Chest wall pain R07.89 [facility] [id number] [place] [address] Sep, Chest wall pain R07.89 and Pleurodynia R07.81 [facility] [id number] [place] [address] Sep, [facility] [id number] [place] [address] Sep, Chest wall pain R07.89 and Sore throat J02.9 [facility] [id number] [place] [address] Sep, [facility] [id number] [place] [address] Sep, Sore throat J02.9 and Acute nasopharyngitis J00 [facility] [id number] [place] [address] Sep, [facility] [id number] [place] [address] Aug, Chest wall pain R07.89 [facility] [id number] [place] [address] Jul, Chest wall pain R07.89 [facility] [id number] [place] [address] Jul, [facility] [id number] [place] [address] Jul, Chest wall pain R07.89 [facility] [id number] [place] [address] Jul, Chest wall pain R07.89 ; Chronic fatigue R53.82 ; Anemia, unspecified type D64.9 ; Vertigo R42 and Coronary artery disease involving nenana coronary artery of nenana heart without angina pectoris I25.10 [facility] [id number] [address] Jun, Chest wall pain R07.89 [facility] [id number] [place] [address] Apr, Chest wall pain R07.89 [facility] [id number] [place] [address] Apr, [facility] [id number] [place] [address] Apr, Dental abscess K04.7 [facility] [id number] [place] [address] Apr, [facility] [id number] [place] [address] Apr, Chest wall pain R07.89 [facility] [id number] [place] [address] Mar, Chest wall pain R07.89 [facility] [id number] [place] [address] Feb, Chest wall pain R07.89 ; Lateral epicondylitis of right elbow M77.11 and Mixed hyperlipidemia E78.2 [facility] [id number] [place] [address] Feb, Chest wall pain R07.89 [facility] [id number] [place] [address] January, [facility] [id number] [place] [address] January, Chest wall pain R07.89 [facility] [id number] [place] [address] Dec, Chest wall pain R07.89 [facility] [id number] [place] [address] Nov, [facility] [id number] [place] [address] Nov, Hypokalemia E87.6 [facility] [address] [address] Nov, Hypokalemia E87.6 and Iron deficiency anemia, unspecified iron deficiency anemia type D50.9 [facility] [id number] [place] [address] Nov, [facility] [address] [address] Nov, Nausea R11.0 and Hypovolemia E86.1 [facility] [address] [address] Nov, [facility] [id number] [place] [address] Nov, [facility] [id number] [place] [address] 10 Nov, 2016 Chest wall pain R07.89 [facility] [id number] [place] [address] Nov, Bronchitis J40 [facility] [id number] [place] [address] 09 Oct, 2016 Chest wall pain R07.89 [facility] [id number] [place] [address] Sep, Chest wall pain R07.89 [facility] [id number] [place] [address] 16 Aug, 2016 Chest wall pain R07.89 [facility] [id number] [place] [address] Aug, Chest pain on breathing R07.1 [facility] [id number] [place] [address] Jul, [facility] [address] [address] Jun, [facility] [address] [address] May, Chest wall pain R07.89 ; Iron deficiency anemia, unspecified iron deficiency anemia type D50.9 ; Chronic kidney disease N18.9 and Encounter for immunization Z23 [place] [address] [address] May, [facility] [address] [address] Apr, [facility] [address] [address] Mar, [facility] [address] [address] Mar, [facility] [address] [address] Feb, [facility] [id number] [place] [address] Feb, Iron deficiency anemia, unspecified iron deficiency anemia type D50.9 [facility] [id number] [place] [address] Feb, Dehydration E86.0 ; Diarrhea, unspecified type R19.7 ; Dizziness R42 and Other specified hypotension I95.89 [facility] [id number] [place] [address] Feb, Anemia, unspecified type D64.9 [facility] [id number] [place] [address] January, Anemia, unspecified type D64.9 [place] [id number] [place] [address] January, Paresthesia R20.2 [facility] [address] [address] January, Chest wall pain R07.89 [facility] [address] [address] Dec, Insomnia G47.00 [facility] [address] [address] Dec, Chest pain on breathing R07.1 [facility] [address] [address] Nov, Chest pain on breathing R07.1 [facility] [address] [address] Oct, [facility] [address] [address] Oct, [facility] [address] [address] Oct, Low back pain M54.5 and Chest wall pain R07.89 [facility] [id number] [place] [address] Oct, Pleurodynia R07.81 [facility] [address] [address] Sep, Pleurodynia R07.81 and Other nerve root and plexus disorders G54.8 [facility] [address] [address] Aug, Chronic kidney disease N18.9 ; Encounter for immunization Z23 ; Chest wall pain R07.89 ; Urinary frequency R35.0 and Vertigo R42 [facility] [id number] [place] [address] Aug, [facility] [address] [facility] [id number] [place] [address] Jul, [facility] [address] [place] [address] Jul, [facility] [address] [facility] [id number] [place] [address] Jun, [facility] [address] [place] [address] Jun, [facility] [address] [facility] [id number] [place] [address] May, [facility] [address] [address] May, [facility] [address] [address] May, [facility] [address] [address] May, Coronary atherosclerosis of unspecified type of vessel, nenana or graft 414.00 [facility] [address] [address] Apr, [facility] [address] [address] Apr, [facility] [address] [address] Apr, [facility] [address] [address] Apr, [facility] [address] [address] Apr, [facility] [address] [address] Apr, Coronary atherosclerosis of unspecified type of vessel, nenana or graft 414.00 and Left-sided chest wall pain 786.52 [facility] [address] [address] Mar, [facility] [address] [id number] [place] [address] Mar, [facility] [address] [id number] [place] [address] Feb, [facility] [address] [id number] [place] [address] Feb, [facility] [address] [id number] [place] [address] January, [facility] [address] [id number] [place] [address] January, [facility] [address] [id number] [place] [address] January, [facility] [address] [facility] [id number] [place] [address] January, Neuropathic pain of chest 353.8 [facility] [address] [id number] [place] [address] Dec, [facility] [address] [id number] [place] [address] Dec, [facility] [address] [facility] [id number] [place] [address] Nov, [facility] [address] [id number] [place] [address] Nov, [facility] [place] [facility] [address] [id number] [place] [address] Nov, [facility] [place] [facility] [address] [id number] [place] [address] Nov, [facility] [place] [facility] [address] [facility] [id number] [place] [address] Nov, [facility] [place] [facility] [address] [id number] [place] [address] Nov, [facility] [place] [facility] [address] [id number] [place] [address] Oct, [facility] [place] [facility] [address] [id number] [place] [address] Oct, [facility] [place] [facility] [address] [id number] [place] [address] Oct, [facility] [place] [facility] [address] [id number] [place] [address] Oct, [facility] [place] [facility] [address] [id number] [place] [address] Oct, [facility] [place] [facility] [address] [id number] [place] [address] Oct, [facility] [place] [facility] [address] [id number] [place] [address] Sep, [facility] [place] [facility] [address] [id number] [place] [address] Sep, [facility] [place] [facility] [address] [id number] [place] [address] Sep, [facility] [place] [facility] [address] [id number] [place] [address] Sep, [facility] [place] [facility] [address] [id number] [place] [address] Aug, [facility] [place] [facility] [address] [id number] [place] [address] Aug, [facility] [place] [facility] [address] [id number] [place] [address] Aug, [facility] [place] [facility] [address] [id number] [place] [address] Aug, [facility] [place] [facility] [address] [id number] [place] [address] Aug, [facility] [place] [facility] [address] [id number] [place] [address] Aug, [facility] [place] [facility] [address] [id number] [place] [address] Aug, [facility] [place] [facility] [address] [id number] [place] [address] Aug, [facility] [place] [facility] [address] [id number] [place] [address] Aug, [facility] [place] [facility] [address] [id number] [place] [address] Aug, [facility] [place] [facility] [address] [id number] [place] [address] Jul, [facility] [place] [facility] [address] [id number] [place] [address] Jul, [facility] [place] [facility] [address] [id number] [place] [address] Jul, [facility] [place] [facility] [address] [id number] [place] [address] Jul, [facility] [place] [facility] [address] [id number] [place] [address] Jun, [facility] [place] [facility] [address] [id number] [place] [address] Jun, [facility] [place] [facility] [address] [id number] [place] [address] Jun, [facility] [place] [facility] [address] [id number] [place] [address] Jun, [facility] [place] [facility] [address] [id number] [place] [address] May, [facility] [place] [facility] [address] [id number] [place] [address] 29 May, 2014 [facility] [place] [facility] [address] [id number] [place] [address] May, [facility] [place] [facility] [address] [id number] [place] [address] May, [facility] [place] [facility] [address] [id number] [place] [address] Apr, [facility] [place] [facility] [address] [id number] [place] [address] Apr, [facility] [place] [facility] [address] [id number] [place] [address] Feb, [facility] [place] [facility] [address] [id number] [place] [address] January, [facility] [place] [facility] [address] [id number] [place] [address] January, [facility] [place] [facility] [address] [id number] [place] [address] January, [facility] [place] [facility] [address] [id number] [place] [address] January, [facility] [place] [facility] [address] [id number] [place] [address] January, [facility] [place] [facility] [address] [id number] [place] [address] January, [facility] [place] [facility] [address] [id number] [place] [address] Dec, [facility] [place] [facility] [address] [id number] [place] [address] Dec, [facility] [place] [facility] [address] [id number] [place] [address] Dec, [facility] [place] [facility] [address] [id number] [place] [address] Dec, [facility] [place] [facility] [address] [id number] [place] [address] Dec, [facility] [place] [facility] [address] [id number] [place] [address] Dec, [facility] [place] [facility] [address] [id number] [place] [address] Dec, [facility] [place] [facility] [address] [id number] [place] [address] Dec, [facility] [place] [facility] [address] [id number] [place] [address] Nov, [facility] [place] [facility] [address] [id number] [place] [address] Nov, [facility] [place] [facility] [address] [id number] [place] [address] Nov, [facility] [place] [facility] [address] [id number] [place] [address] Nov, [facility] [place] [facility] [address] [id number] [place] [address] Nov, [facility] [place] [facility] [address] [id number] [place] [address] Nov, [facility] [place] [facility] [address] [id number] [place] [address] Nov, [facility] [place] [facility] [address] [id number] [place] [address] Oct, [facility] [place] [facility] [address] [id number] [place] [address] Oct, [facility] [place] [facility] [address] [id number] [place] [address] Oct, [facility] [place] [facility] [address] [id number] [place] [address] Oct, [facility] [place] [facility] [address] [id number] [place] [address] Sep, [facility] [place] [facility] [address] [id number] [place] [address] Sep, [facility] [place] [facility] [address] [id number] [place] [address] Sep, [facility] [place] [facility] [address] [id number] [place] [address] Sep, [facility] [place] [facility] [address] [id number] [place] [address] Aug, [facility] [place] [facility] [address] [id number] [place] [address] Aug, [facility] [place] [facility] [address] [id number] [place] [address] Jul, [facility] [place] [facility] [address] [id number] [place] [address] Jul, [facility] [place] [facility] [address] [id number] [place] [address] Jun, [facility] [place] [facility] [address] [id number] [place] [address] Jun, [facility] [place] [facility] [address] [id number] [place] [address] Jun, [facility] [place] [facility] [address] [id number] [place] [address] May, [facility] [place] [facility] [address] [id number] [place] [address] Apr, [facility] [place] [facility] [address] [id number] [place] [address] Apr, [facility] [place] [facility] [address] [id number] [place] [address] Mar, [facility] [place] [facility] [address] [id number] [place] [address] Feb, [facility] [place] [facility] [address] [id number] [place] [address] Feb, [facility] [place] [facility] [address] [id number] [place] [address] January, [facility] [address] [id number] [place] [address] January, [facility] [place] [facility] [address] [id number] [place] [address] Dec, [facility] [place] [facility] [address] [id number] [place] [address] Dec, [facility] [place] [facility] [address] [id number] [place] [address] Dec, [facility] [address] [id number] [place] [address] Dec, [facility] [place] [facility] [address] [id number] [place] [address] Nov, [facility] [place] [facility] [address] [id number] [place] [address] Nov, [facility] [place] [facility] [address] [id number] [place] [address] Oct, [facility] [place] [facility] [address] [id number] [place] [address] Oct, [facility] [place] [facility] [address] [id number] [place] [address] Oct, [facility] [place] [facility] [address] [id number] [place] [address] Sep, [facility] [place] [facility] [address] [id number] [place] [address] Sep, [facility] [place] [facility] [address] [id number] [place] [address] Sep, [facility] [place] [facility] [address] [id number] [place] [address] Sep, [facility] [place] [facility] [address] [id number] [place] [address] Sep, [facility] [place] [facility] [address] [id number] [place] [address] Aug, [facility] [address] [id number] [place] [address] Aug, [facility] [place] [facility] [address] [id number] [place] [address] Aug, [facility] [address] [id number] [place] [address] Aug, [facility] [place] [facility] [address] [id number] [place] [address] Jul, [facility] [place] [facility] [address] [id number] [place] [address] Jul, [facility] [place] [facility] [address] [id number] [place] [address] Jul, [facility] [place] [facility] [address] [id number] [place] [address] Jul, [facility] [place] [facility] [address] [id number] [place] [address] Jun, [facility] [place] [facility] [address] [id number] [place] [address] Jun, [facility] [place] [facility] [address] [facility] [id number] [place] [address] Jun, [facility] [place] [facility] [address] [id number] [place] [address] Jun, [facility] [place] [facility] [address] [id number] [place] [address] Jun, [facility] [place] [facility] [address] [id number] [place] [address] 24 May, 2012 [facility] [place] [facility] [address] [id number] [place] [address] 13 May, 2012 [facility] [place] [facility] [address] [id number] [place] [address] 12 May, 2012 [facility] [place] [facility] [address] [id number] [place] [address] 11 May, 2012 [facility] [place] [facility] [address] [id number] [place] [address] 10 May, 2012 [facility] [place] [facility] [address] [id number] [place] [address] 06 May, 2012 [facility] [place] [facility] [address] [id number] [place] [address] 05 May, 2012 [facility] [place] [facility] [address] [id number] [place] [address] 30 Apr, 2012 [facility] [place] [facility] [address] [id number] [place] [address] Apr, [facility] [place] [facility] [address] [id number] [place] [address] Apr, [facility] [place] [facility] [address] [id number] [place] [address] Apr, [facility] [place] [facility] [address] [id number] [place] [address] Apr, [facility] [place] [facility] [address] [id number] [place] [address] Apr, [facility] [place] [facility] [address] [id number] [place] [address] Apr, [facility] [place] [facility] [address] [id number] [place] [address] Apr, [facility] [place] [facility] [address] [id number] [place] [address] Mar, [facility] [place] [facility] [address] [id number] [place] [address] Mar, [facility] [place] [facility] [address] [id number] [place] [address] Mar, [facility] [place] [facility] [address] [id number] [place] [address] Feb, [facility] [id number] [place] [address] January, [facility] [id number] [place] [address] January, [facility] [id number] [place] [address] January, [facility] [id number] [place] [address] Dec, [facility] [id number] [place] [id number] Dec, [facility] [id number] [place] [address] Dec, [facility] [id number] [place] [address] Dec, [facility] [id number] [place] [address] Dec, [facility] [id number] [place] [address] Dec, IMMUNIZATIONS No Known Immunizations SOCIAL HISTORY Never Assessed REASON FOR VISIT pain management, dizziness that began in October and continued until this week [facility] [facility] OF CARE Activity Details Follow Up 3 Months Reason: VITAL SIGNS Height 70 in 2018-01-19 Weight 221 lbs 2018-01-19 Temperature 97.9 degrees Fahrenheit 2018-01-19 Heart Rate 90 bpm 2018-01-19 Respiratory Rate 20 2018-01-19 BMI 31.71 kg/m2 2018-01-19 Blood pressure systolic 128 mmHg 2018-01-19 Blood pressure diastolic 78 mmHg 2018-01-19 MEDICATIONS Medication Instructions Dosage Frequency Start Date End Date Duration Status Simvastatin 40 MG TAKE ONE TABLET BY MOUTH ONCE DAILY 30 Active Fish Oil Concentrate 1000 mg 1 Capsule by Oral route 2 times per day Sep, Active Quetiapine Fumarate 200 MG TAKE ONE TABLET BY MOUTH ONCE DAILY 30 Active Lyrica 50 mg Orally Three times a day 1 capsule 8h Active Toprol XL 25 MG Orally Once a day 1 tablet 24h Active Seroquel 200 mg Orally Once a day 1 tablet 24h 30 Active Diclofenac Sodium 75 MG Orally 2 times a day ONE TABLET 12h 30 Active Polysaccharide Iron Complex 150 MG Orally Once a day 1 capsule 24h Nov, 30 Active Hydrocodone-Acetaminophen 7.5-325 MG Orally, 5 times per day 2 tablet Dec, 30 days Active Multivitamin 1 Tablet by Oral route 1 time per day Sep, Active Aspirin 81 mg take 1 tablet (81 mg) by oral route once daily Nov, Active Aspirin EC Low Dose 81 MG TAKE ONE TABLET BY MOUTH ONCE DAILY 30 Active SudoGest 60 mg Orally every 6 hrs 1 tablet as needed 6h Sep, 05 days Active Temazepam 30 MG Orally Once a day 1 capsule at bedtime as needed 24h 30 Active RESULTS No Results PROCEDURES Procedure Date Ordered Result Body Site [facility] January 19, 2018 [facility] VISIT ESTABLISHED PATIENT January 19, 2018 INSTRUCTIONS MEDICATIONS ADMINISTERED No Known Medications [...] dizziness, renal insuff, heat cath showed CAD ([facility]) 01/03/2012 Hospitalization History CABG ([facility]) Dr. Banks 02/2012
--- OUTSIDE RECORDS SUMMARY | 2019-05-03 09:46 | XMS REPORT ---
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 Active 1981278898694 Problem Anemia, unspecified type D64.9 Active 574767742 Problem Vertigo R42 Active 770640239 Problem Mixed hyperlipidemia E78.2 Active 518591475 Problem Iron deficiency anemia, unspecified iron deficiency anemia type D50.9 Active 82620061 ALLERGIES No Information ENCOUNTERS Encounter Location Date Diagnosis [place] [id number] [place] [address] Mar, Chest wall pain R07.89 [place] [address] [address] Feb, Chest wall pain R07.89 [place] [id number] [place] [address] January, Chest wall pain R07.89 [place] [id number] [place] [address] Dec, Chest wall pain R07.89 ; Coronary artery disease involving st[place] river coronary artery of [place] river heart without angina pectoris I25.10 and Vertigo R42 [facility] [id number] [place] [address] Dec, Chest wall pain R07.89 [place] [id number] [place] [address] Nov, Chest wall pain R07.89 [facility] [id number] [place] [address] Oct, Chest wall pain R07.89 [facility] [id number] [place] [address] Sep, Chest wall pain R07.89 and Pleurodynia R07.81 [facility] [id number] [place] [address] Sep, [facility] [id number] [place] [address] Sep, Chest wall pain R07.89 and Sore throat J02.9 [facility] [id number] [place] [address] Sep, [facility] [id number] [place] [address] Sep, Sore throat J02.9 and Acute nasopharyngitis J00 [facility] [id number] [place] [address] Sep, [facility] [id number] [place] [address] Aug, Chest wall pain R07.89 [facility] [id number] [place] [address] Jul, Chest wall pain R07.89 [facility] [id number] [place] [address] Jul, [facility] [id number] [place] [address] Jul, Chest wall pain R07.89 [facility] [id number] [place] [address] Jul, Chest wall pain R07.89 ; Chronic fatigue R53.82 ; Anemia, unspecified type D64.9 ; Vertigo R42 and Coronary artery disease involving stony river coronary artery of st[place] river heart without angina pectoris I25.10 [facility] [id number] [place] [address] Jun, Chest wall pain R07.89 [facility] [id number] [place] [address] Apr, Chest wall pain R07.89 [facility] [id number] [place] [address] Apr, [facility] [id number] [place] [address] Apr, Dental abscess K04.7 [facility] [id number] [place] [address] Apr, [facility] [address] [address] Apr, Chest wall pain R07.89 [facility] [id number] [place] [address] Mar, Chest wall pain R07.89 [facility] [id number] [place] [address] Feb, Chest wall pain R07.89 ; Lateral epicondylitis of right elbow M77.11 and Mixed hyperlipidemia E78.2 [facility] [id number] [place] [address] Feb, Chest wall pain R07.89 [facility] [id number] [place] [address] January, [facility] [id number] [place] [address] January, Chest wall pain R07.89 [facility] [id number] [place] [address] Dec, Chest wall pain R07.89 [facility] [id number] [place] [address] Nov, [facility] [id number] [place] [address] 24 Nov, 2016 Hypokalemia E87.6 [facility] [id number] [place] [address] Nov, Hypokalemia E87.6 and Iron deficiency anemia, unspecified iron deficiency anemia type D50.9 [facility] [id number] [place] [address] Nov, [facility] [id number] [place] [address] Nov, Nausea R11.0 and Hypovolemia E86.1 [facility] [id number] [place] [address] Nov, [facility] [id number] [place] [address] Nov, [facility] [id number] [place] [address] Nov, Chest wall pain R07.89 [facility] [id number] [place] [address] Nov, Bronchitis J40 [facility] [id number] [place] [address] 09 Oct, 2016 Chest wall pain R07.89 [facility] [id number] [place] [address] Sep, Chest wall pain R07.89 [facility] [id number] [place] [address] Aug, Chest wall pain R07.89 [facility] [id number] [place] [address] Aug, Chest pain on breathing R07.1 [facility] [address] [address] Jul, [facility] [id number] [place] [address] Jun, [facility] [id number] [place] [address] 16 May, 2016 Chest wall pain R07.89 ; Iron deficiency anemia, unspecified iron deficiency anemia type D50.9 ; Chronic kidney disease N18.9 and Encounter for immunization Z23 [facility] [id number] [place] [address] May, [facility] [id number] [place] [address] Apr, [facility] [id number] [place] [address] Mar, [facility] [id number] [place] [address] Mar, [facility] [id number] [place] [address] Feb, [facility] [id number] [place] [address] Feb, Iron deficiency anemia, unspecified iron deficiency anemia type D50.9 [facility] [address] [place] [address] Feb, Dehydration E86.0 ; Diarrhea, unspecified type R19.7 ; Dizziness R42 and Other specified hypotension I95.89 [facility] [address] [place] [address] Feb, Anemia, unspecified type D64.9 [facility] [id number] [place] [address] January, Anemia, unspecified type D64.9 [facility] [id number] [place] [address] January, Paresthesia R20.2 [facility] [id number] [place] [address] January, Chest wall pain R07.89 [facility] [id number] [place] [address] Dec, Insomnia G47.00 [facility] [address] [address] Dec, Chest pain on breathing R07.1 [facility] [address] [address] Nov, Chest pain on breathing R07.1 [facility] [address] [address] Oct, [facility] [address] [address] Oct, [facility] [address] [address] Oct, Low back pain M54.5 and Chest wall pain R07.89 [facility] [address] [address] Oct, Pleurodynia R07.81 [facility] [id number] [place] [address] Sep, Pleurodynia R07.81 and Other nerve root and plexus disorders G54.8 [facility] [id number] [place] [address] Aug, Chronic kidney disease N18.9 ; Encounter for immunization Z23 ; Chest wall pain R07.89 ; Urinary frequency R35.0 and Vertigo R42 [facility] [id number] [place] [address] Aug, [facility] [address] [address] Jul, [facility] [address] [facility] [id number], [place] [address] Jul, [facility] [address] [facility] [id number] [address] Jun, [facility] [id number] [address] Jun, [facility] [address] [facility] [id number] [place] [address] May, [facility] [address] [facility] [id number], [place] [address] May, [facility] [address] [facility] [id number] [place] [address] May, [facility] [address] [facility] [id number] [address] May, Coronary atherosclerosis of unspecified type of vessel, stony river or graft 414.00 [facility] [address] [facility] [id number], [place] [address] Apr, [facility] [id number] [address] Apr, [facility] [address] [address] Apr, [facility] [address] [address] Apr, [facility] [address] [facility] [id number], [place] [address] Apr, [facility] [address] [facility] [id number], [place] [address] Apr, Coronary atherosclerosis of unspecified type of vessel, stony river or graft 414.00 and Left-sided chest wall pain 786.52 [facility] [address] [facility] [id number] [address] Mar, [facility] [address] [id number] [place] [address] Mar, [facility] [place] [facility] [address] [id number] [place] [address] Feb, [facility] [place] [facility] [address] [id number] [place] [address] Feb, [facility] [place] [facility] [address] [id number] [place] [address] January, [facility] [place] [facility] [address] [id number] [place] [address] January, [facility] [place] [facility] [address] [id number] [place] [address] January, [facility] [place] [facility] [address] [facility] [id number] [place] [address] January, Neuropathic pain of chest 353.8 [facility] [address] [id number] [place] [address] Dec, [facility] [place] [facility] [address] [id number] [place] [address] Dec, [facility] [place] [facility] [address] [facility] [id number] [address] Nov, [facility] [place] [facility] [address] [facility] [id number], [place] [address] Nov, [facility] [place] [facility] [address] [id number], [place] [address] Nov, [facility] [place] [facility] [address] [id number] [place] [address] Nov, [facility] [place] [facility] [address] [id number], [place] [address] Nov, [facility] [place] [facility] [address] [facility] [id number][place] [address] Nov, [facility] [place] [facility] [address] [id number], [place] [address] Oct, 2014 [facility] [address] [id number] [place] [address] Oct, [facility] [place] [facility] [address] [id number] [place] [address] Oct, [facility] [place] [facility] [address] [id number] [place] [address] Oct, 2014 [facility] [place] [facility] [address] [id number] [place] [address] Oct, [facility] [place] [facility] [address] [id number] [place] [address] Oct, [facility] [place] [facility] [address] [id number] [place] [address] Sep, [facility] [place] [facility] [address] [facility] [id number] [place] [address] Sep, [facility] [address] [id number] [place] [address] Sep, [facility] [place] [facility] [address] [id number] [place] [address] Sep, [facility] [address] [facility] [id number] [place] [address] Aug, [facility] [place] [facility] [address] [id number] [place] [address] Aug, [facility] [place] [facility] [address] [id number] [place] [address] Aug, [facility] [place] [facility] [address] [id number] [place] [address] Aug, [facility] [place] [facility] [address] [id number] [place] [address] Aug, [facility] [place] [facility] [address] [id number] [place] [address] Aug, [facility] [place] [facility] [address] [id number] [place] [address] Aug, [facility] [place] [facility] [address] [id number] [place] [address] Aug, [facility] [place] [facility] [address] [id number] [place] [address] Aug, [facility] [place] [facility] [address] [id number] [place] [address] Aug, [facility] [place] [facility] [address] [id number] [place] [address] Jul, [facility] [place] [facility] [address] [id number] [place] [address] Jul, [facility] [place] [facility] [address] [id number] [place] [address] Jul, [facility] [place] [facility] [address] [id number] [place] [address] Jul, [facility] [place] [facility] [address] [id number] [place] [address] Jun, [facility] [place] [facility] [address] [id number] [place] [address] Jun, [facility] [place] [facility] [address] [id number] [place] [address] Jun, [facility] [place] [facility] [address] [id number], [place] [address] Jun, [facility] [place] [facility] [address] [id number] [place] [address] May, [facility] [place] [facility] [address] [id number] [place] [address] May, [facility] [place] [facility] [address] [id number] [place] [address] May, [facility] [place] [facility] [address] [id number], [place] [address] May, [facility] [place] [facility] [address] [id number] [place] [address] Apr, [facility] [place] [facility] [address] [id number] [place] [address] Apr, [facility] [place] [facility] [address] [id number] [place] [address] Feb, [facility] [place] [facility] [address] [id number] [place] [address] January, [facility] [place] [facility] [address] [id number] [place] [address] January, [facility] [place] [facility] [address] [id number] [place] [address] January, [facility] [place] [facility] [address] [id number] [place] [address] January, [facility] [place] [facility] [address] [id number] [place] [address] January, [facility] [place] [facility] [address] [id number] [place] [address] January, [facility] [place] [facility] [address] [id number] [place] [address] Dec, [facility] [place] [facility] [address] [id number] [place] [address] Dec, [facility] [place] [facility] [address] [id number] [place] [address] Dec, [facility] [place] [facility] [address] [id number] [place] [address] Dec, [facility] [place] [facility] [address] [id number] [place] [address] Dec, [facility] [place] [facility] [address] [id number] [place] [address] Dec, [facility] [place] [facility] [address] [id number] [place] [address] Dec, [facility] [place] [facility] [address] [id number] [place] [address] Dec, [facility] [place] [facility] [address] [id number] [place] [address] Nov, [facility] [place] [facility] [address] [id number] [place] [address] Nov, [facility] [place] [facility] [address] [id number] [place] [address] Nov, [facility] [place] [facility] [address] [id number] [place] [address] Nov, [facility] [place] [facility] [address] [id number] [place] [address] Nov, [facility] [place] [facility] [address] [id number] [place] [address] Nov, [facility] [place] [facility] [address] [id number] [place] [address] Nov, [facility] [place] [facility] [address] [id number] [place] [address] Oct, [facility] [place] [facility] [address] [id number] [place] [address] Oct, [facility] [place] [facility] [address] [id number] [place] [address] Oct, [facility] [place] [facility] [address] [id number] [place] [address] Oct, [facility] [place] [facility] [address] [id number] [place] [address] Sep, [facility] [place] [facility] [address] [id number] [place] [address] Sep, [facility] [place] [facility] [address] [id number] [place] [address] Sep, [facility] [place] [facility] [address] [id number] [place] [address] Sep, [facility] [place] [facility] [address] [id number] [place] [address] Aug, [facility] [place] [facility] [address] [id number] [place] [address] Aug, [facility] [place] [facility] [address] [id number] [place] [address] Jul, [facility] [place] [facility] [address] [id number] [place] [address] Jul, [facility] [place] [facility] [address] [id number] [place] [address] Jun, [facility] [place] [facility] [address] [id number] [place] [address] Jun, [facility] [place] [facility] [address] [id number] [place] [address] Jun, [facility] [place] [facility] [address] [id number] [place] [address] May, [facility] [place] [facility] [address] [id number] [place] [address] Apr, [facility] [place] [facility] [address] [id number] [place] [address] Apr, [facility] [place] [facility] [address] [id number], [place] [address] Mar, [facility] [place] [facility] [address] [id number] [place] [address] Feb, [facility] [place] [facility] [address] [id number] [place] [address] Feb, [facility] [place] [facility] [address] [id number] [place] [address] January, [facility] [place] [facility] [address] [id number] [place] [address] January, [facility] [address] [id number] [place] [address] Dec, [facility] [address] [id number] [place] [address] Dec, [facility] [address] [id number] [place] [address] Dec, [facility] [address] [id number] [place] [address] Dec, [facility] [address] [id number] [place] [address] Nov, [facility] [address] [id number] [place] [address] Nov, [facility] [address] [id number] [place] [address] Oct, [facility] [address] [id number] [place] [address] Oct, [facility] [address] [id number] [place] [address] Oct, [facility] [address] [id number] [place] [address] Sep, [facility] [address] [id number] [place] [address] Sep, [facility] [address] [id number] [place] [address] Sep, [facility] [address] [id number] [place] [address] Sep, [facility] [address] [id number] [place] [address] Sep, [facility] [address] [id number] [place] [address] Aug, [facility] [place] [facility] [address] [id number] [place] [address] Aug, [facility] [place] [facility] [address] [id number] [place] [address] Aug, [facility] [place] [facility] [address] [id number] [place] [address] Aug, [facility] [place] [facility] [address] [id number] [place] [address] Jul, [facility] [place] [facility] [address] [id number] [place] [address] Jul, [facility] [place] [facility] [address] [id number] [place] [address] Jul, [facility] [place] [facility] [address] [id number] [place] [address] Jul, [facility] [place] [facility] [address] [id number] [place] [address] Jun, [facility] [place] [facility] [address] [id number] [place] [address] Jun, [facility] [place] [facility] [address] [id number] [place] [address] Jun, [facility] [place] [facility] [address] [id number] [place] [address] Jun, [facility] [place] [facility] [address] [id number] [address] Jun, [facility] [place] [facility] [address] [id number] [place] [address] 24 May, 2012 [facility] [place] [facility] [address] [id number] [place] [address] 13 May, 2012 [facility] [place] [facility] [address] [id number] [place] [address] 12 May, 2012 [facility] [place] [facility] [address] [id number] [place] [address] 11 May, 2012 [facility] [place] [facility] [address] [id number] [place] [address] 10 May, 2011 [facility] [place] [facility] [address] [id number] [place] [address] 06 May, 2012 [facility] [place] [facility] [address] [id number] [place] [address] 05 May, 2012 [facility] [place] [facility] [address] [id number] [place] [address] 30 Apr, 2012 [facility] [place] [facility] [address] [id number] [place] [address] Apr, [facility] [place] [facility] [address] [id number] [place] [address] Apr, [facility] [place] [facility] [address] [id number] [place] [address] Apr, [facility] [place] [facility] [address] [id number] [place] [address] Apr, [facility] [place] [facility] [address] [id number] [place] [address] Apr, [facility] [facility] [facility] [address] [id number] [place] [address] Apr, [facility] [place] [facility] [address] [id number] [place] [address] Apr, [facility] [place] [facility] [address] [id number] [place] [address] Mar, [facility] [place] [facility] [address] [id number] [place] [address] Mar, [facility] [place] [facility] [address] [id number] [place] [address] Mar, [facility] [place] [facility] [address] [id number] [place] [address] Feb, [facility] [place] [facility] [address] [id number] [address] January, [facility] [address] [address] January, [facility] [address] [address] January, [facility] [address] [address] Dec, [facility] [address] [address] Dec, [facility] [id number] [place] [address] Dec, [facility] [address] [address] Dec, [facility] [address] [address] Dec, [facility] [address] [address] Dec, IMMUNIZATIONS No Known Immunizations SOCIAL HISTORY Never Assessed REASON FOR VISIT Hydrocodone and temazapam 12/25 PLAN OF CARE VITAL SIGNS MEDICATIONS Medication [...] 04/02/2012 Surgical History appendectomy age 10 at [facility] Surgical History cholecystectomy-Ft. Geovanny Gonzalez 2007 Surgical History coronary artery bypass graft LAD 02/2012 Surgical History heart cath x2 after bypass, pt has 5 stents Hospitalization History Chest pain, dizziness, renal insuff, heat cath showed CAD ([facility]) 01/03/2012 Hospitalization History CABG ([facility]) Dr. Banks 02/2012
--- OUTSIDE RECORDS SUMMARY | 2019-05-03 09:46 | XMS REPORT ---
Author Author BELEM FUENTES Organization [facility] Address [address] [place] [address] Care Team Providers Care Seam Sewer Name Role Phone BELEM FUENTES Unavailable PROBLEMS Type Condition ICD9-CM Code YEL47-MR Code Onset Dates Condition Status SNOMED Code Problem Mixed hyperlipidemia E78.2 Active 753227557 Problem Iron deficiency anemia, unspecified iron deficiency anemia type D50.9 Active 42354803 Problem Chronic kidney disease N18.9 Active 157601582 Problem Chest wall pain R07.89 Active 678859510 Problem Anemia, unspecified type D64.9 Active 012255568 Problem Vertigo R42 Active [id number] ALLERGIES No Information SOCIAL HISTORY Never Assessed PLAN OF CARE VITAL SIGNS MEDICATIONS Medication Instructions Dosage Frequency Start Date End Date Duration Status Hydrocodone-Acetaminophen 7.5-325 MG Orally, 5 times per day 2 tablet Oct, Active RESULTS No Results PROCEDURES No Known procedures IMMUNIZATIONS No Known Immunizations MEDICAL (GENERAL) HISTORY Type Description Date Medical [...] 10 at [facility] Surgical History cholecystectomy- Geovanny Lisa 2007 Surgical History coronary artery bypass graft LAD 02/2012 Surgical History heart cath x2 after bypass, pt has 5 stents Hospitalization History Chest pain, dizziness, renal insuff, heat cath showed CAD ([facility]) 01/03/2012 Hospitalization History CABG ([facility]) Dr. Bansk 02/2012
--- OUTSIDE RECORDS SUMMARY | 2019-05-03 09:46 | XMS REPORT ---
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.10 Active 5588358598450 Problem Anemia, unspecified type D64.9 Active 379222376 Problem Vertigo R42 Active 339376300 Problem Mixed hyperlipidemia E78.2 Active 197897493 Problem Iron deficiency anemia, unspecified iron deficiency anemia type D50.9 Active 64452910 ALLERGIES No Information ENCOUNTERS Encounter Location Date Diagnosis [place] [id number] [place] [address] Feb, Chest wall pain R07.89 [place] [id number] [place] [address] January, Chest wall pain R07.89 [place] [id number] [place] [address] Dec, Chest wall pain R07.89 ; Coronary artery disease involving resighini coronary artery of resighini heart without angina pectoris I25.10 and Vertigo R42 [place] [id number] [place] [address] Dec, Chest wall pain R07.89 [place] [id number] [place] [address] Nov, Chest wall pain R07.89 [place] [id number] [place] [address] Oct, Chest wall pain R07.89 [facility] [id number] [place] [address] Sep, Chest wall pain R07.89 and Pleurodynia R07.81 [facility] [id number] [place] [address] Sep, [facility] [id number] [place] [address] Sep, Chest wall pain R07.89 and Sore throat J02.9 [facility] [address] [address] Sep, [facility] [id number] [place] [address] Sep, Sore throat J02.9 and Acute nasopharyngitis J00 [facility] [id number] [place] [address] Sep, [facility] [id number] [place] [address] Aug, Chest wall pain R07.89 [facility] [id number] [place] [address] Jul, Chest wall pain R07.89 [facility] [id number] [place] [address] Jul, [facility] [id number] [place] [address] Jul, Chest wall pain R07.89 [facility] [id number] [place] [address] Jul, Chest wall pain R07.89 ; Chronic fatigue R53.82 ; Anemia, unspecified type D64.9 ; Vertigo R42 and Coronary artery disease involving resighini coronary artery of resighini heart without angina pectoris I25.10 [facility] [address] [facility] [id number] [address] Jun, Chest wall pain R07.89 [facility] [address] [facility] [id number] [place] [address] Apr, Chest wall pain R07.89 [facility] [address] [facility] [id number], [place] [address] Apr, [facility] [address] [facility] [id number] [place] [address] Apr, Dental abscess K04.7 [facility] [address] [facility] [id number] [place] [address] Apr, [facility] [id number] [place] [address] Apr, Chest wall pain R07.89 [facility] [id number] [place] [address] Mar, Chest wall pain R07.89 [facility] [id number] [place] [address] Feb, Chest wall pain R07.89 ; Lateral epicondylitis of right elbow M77.11 and Mixed hyperlipidemia E78.2 [facility] [address] [address] Feb, Chest wall pain R07.89 [facility] [id number] [place] [address] January, [facility] [id number] [place] [address] January, Chest wall pain R07.89 [facility] [id number] [place] [address] Dec, Chest wall pain R07.89 [facility] [id number] [address] Nov, [facility] [id number] [place] [address] Nov, Hypokalemia E87.6 [facility] [id number] [place] [address] Nov, Hypokalemia E87.6 and Iron deficiency anemia, unspecified iron deficiency anemia type D50.9 [facility] [id number] [place] [address] Nov, [facility] [id number] [place] [address] Nov, Nausea R11.0 and Hypovolemia E86.1 [facility] [address] [address] Nov, [facility] [id number] [place] [address] Nov, [facility] [id number] [place] [address] Nov, Chest wall pain R07.89 [facility] [id number] [place] [address] Nov, Bronchitis J40 [facility] [id number] [place] [address] Oct, Chest wall pain R07.89 [facility] [id number] [place] [address] Sep, Chest wall pain R07.89 [facility] [id number] [place] [address] Aug, Chest wall pain R07.89 [facility] [id number] [place] [address] Aug, Chest pain on breathing R07.1 [facility] [id number] [place] [address] Jul, [facility] [id number] [place] [address] Jun, [facility] [id number] [place] [address] May, Chest wall pain R07.89 ; Iron deficiency anemia, unspecified iron deficiency anemia type D50.9 ; Chronic kidney disease N18.9 and Encounter for immunization Z23 [facility] [address] [address] May, [facility] [id number] [place] [address] Apr, [place] [address] [address] Mar, [place] [address] [address] Mar, [facility] [id number] [place] [address] Feb, [facility] [id number] [place] [address] Feb, Iron deficiency anemia, unspecified iron deficiency anemia type D50.9 [facility] [id number] [place] [address] Feb, Dehydration E86.0 ; Diarrhea, unspecified type R19.7 ; Dizziness R42 and Other specified hypotension I95.89 [facility] [id number] [place] [address] Feb, Anemia, unspecified type D64.9 [place] [id number] [place] [address] January, Anemia, unspecified type D64.9 [facility] [id number] [place] [address] January, Paresthesia R20.2 [facility] [id number] [place] [address] January, Chest wall pain R07.89 [facility] [id number] [place] [address] Dec, Insomnia G47.00 [facility] [address] [address] Dec, Chest pain on breathing R07.1 [facility] [address] [address] Nov, Chest pain on breathing R07.1 [facility] [address] [address] Oct, [facility] [address] [address] Oct, [facility] [address] [address] Oct, Low back pain M54.5 and Chest wall pain R07.89 [facility] [address] [address] Oct, Pleurodynia R07.81 [facility] [address] [address] Sep, Pleurodynia R07.81 and Other nerve root and plexus disorders G54.8 [facility] [address] [address] Aug, Chronic kidney disease N18.9 ; Encounter for immunization Z23 ; Chest wall pain R07.89 ; Urinary frequency R35.0 and Vertigo R42 [facility] [address] [address] Aug, [facility] [address] [address] Jul, [facility] [address] [address] Jul, [facility] [address] [id number], [place] [address] Jun, [facility] [address] [facility] [id number], [place] [address] Jun, [facility] [address] [facility] [id number], [place] [address] May, [facility] [address] [facility] [id number], [place] [address] May, [facility] [address] [facility] [id number], [place] [address] May, [facility] [address] [facility] [id number], [place] [address] May, Coronary atherosclerosis of unspecified type of vessel, resighini or graft 414.00 [facility] [address], [place] [address] Apr, [facility] [address] [facility] [id number], [place] [address] Apr, [facility] [address] [address] Apr, [facility] [address] [address] Apr, [facility] [id number] [address] Apr, [facility] [address] [facility] [id number], [place] [address] Apr, Coronary atherosclerosis of unspecified type of vessel, resighini or graft 414.00 and Left-sided chest wall pain 786.52 [facility] [id number] [address] Mar, [facility] [id number] [address] Mar, [facility] [id number] [place] [address] Feb, [facility] [address] [id number] [place] [address] Feb, [facility] [address] [id number] [place] [address] January, [facility] [address] [id number] [place] [address] January, [facility] [address] [id number] [place] [address] January, [facility] [address] [facility] [id number] [place] [address], [place] [address] January, Neuropathic pain of chest 353.8 [facility] [address] [facility] [id number] [place] [address] Dec, [facility] [address] [facility] [id number] [place] [address] Dec, [facility] [address] [facility] [id number] [place] [address] Nov, [facility] [address] [facility] [id number] [place] [address] Nov, [facility] [address] [facility] [id number] [place] [address] Nov, [facility] [address] [facility] [id number] [place] [address] Nov, [facility] [address] [facility] [id number] [place] [address] Nov, [facility] [place] [facility] [address] [facility] [id number] [place] [address] Nov, [facility] [place] [facility] [address] [facility] [id number], [place] [address] Oct, [facility] [place] [facility] [address] [facility] [id number], [place] [address] Oct, [facility] [place] [facility] [address] [id number] [place] [address] Oct, [facility] [place] [facility] [address] [id number] [place] [address] Oct, [facility] [place] [facility] [address] [id number] [place] [address] Oct, [facility] [place] [facility] [address] [id number] [place] [address] Oct, [facility] [place] [facility] [address] [id number] [place] [address] Sep, [facility] [place] [facility] [address] [id number] [place] [address] Sep, [facility] [place] [facility] [address] [facility] [id number] [place] [address] Sep, [facility] [place] [facility] [address] [id number] [place] [address] Sep, [facility] [place] [facility] [address] [facility] [id number] [place] [address] Aug, [facility] [place] [facility] [address] [facility] [id number] [place] [address] Aug, [facility] [place] [facility] [address] [facility] [id number] [place] [address] Aug, [facility] [place] [facility] [address] [id number] [place] [address] Aug, [facility] [place] [facility] [address] [id number] [place] [address] Aug, [facility] [place] [facility] [address] [id number] [place] [address] Aug, [facility] [place] [facility] [address] [facility] [id number] [place] [address] Aug, [facility] [place] [facility] [address] [id number] [place] [address] Aug, [facility] [place] [facility] [address] [id number] [place] [address] Aug, [facility] [place] [facility] [address] [id number] [place] [address] Aug, [facility] [place] [facility] [address] [id number] [place] [address] Jul, [facility] [place] [facility] [address] [id number] [place] [address] Jul, [facility] [place] [facility] [address] [id number] [place] [address] Jul, [facility] [place] [facility] [address] [id number] [place] [address] Jul, [facility] [place] [facility] [address] [id number] [place] [address] Jun, [facility] [place] [facility] [address] [id number] [place] [address] Jun, [facility] [place] [facility] [address] [id number] [place] [address] Jun, [facility] [place] [facility] [address] [facility] [id number] [place] [address] Jun, [facility] [place] [facility] [address] [id number] [place] [address] May, [facility] [place] [facility] [address] [id number] [place] [address] May, [facility] [place] [facility] [address] [id number] [place] [address] May, [facility] [place] [facility] [address] [id number] [place] [address] May, [facility] [place] [facility] [address] [id number] [place] [address] Apr, [facility] [place] [facility] [address] [id number] [place] [address] Apr, [facility] [place] [facility] [address] [id number] [place] [address] Feb, [facility] [place] [facility] [address] [id number] [place] [address] January, [facility] [place] [facility] [address] [id number] [place] [address] January, [facility] [place] [facility] [address] [id number] [place] [address] January, [facility] [place] [facility] [address] [id number] [place] [address] January, [facility] [place] [facility] [address] [id number] [place] [address] January, [facility] [place] [facility] [address] [id number] [place] [address] January, [facility] [place] [facility] [address] [id number] [place] [address] Dec, [facility] [place] [facility] [address] [id number] [place] [address] Dec, [facility] [place] [facility] [address] [id number] [place] [address] Dec, [facility] [place] [facility] [address] [id number] [place] [address] Dec, [facility] [place] [facility] [address] [id number] [place] [address] Dec, [facility] [place] [facility] [address] [id number] [place] [address] Dec, [facility] [place] [facility] [address] [id number] [place] [address] Dec, [facility] [place] [facility] [address] [id number] [place] [address] Dec, [facility] [place] [facility] [address] [id number] [place] [address] Nov, [facility] [place] [facility] [address] [id number] [place] [address] Nov, [facility] [place] [facility] [address] [id number] [place] [address] Nov, [facility] [place] [facility] [address] [id number] [place] [address] Nov, [facility] [place] [facility] [address] [id number] [place] [address] Nov, [facility] [place] [facility] [address] [id number] [place] [address] Nov, [facility] [place] [facility] [address] [id number] [place] [address] Nov, [facility] [place] [facility] [address] [id number] [place] [address] Oct, [facility] [place] [facility] [address] [id number] [place] [address] Oct, [facility] [place] [facility] [address] [id number] [place] [address] Oct, [facility] [place] [facility] [address] [id number] [place] [address] Oct, [facility] [place] [facility] [address] [id number] [place] [address] Sep, [facility] [place] [facility] [address] [id number] [place] [address] Sep, [facility] [place] [facility] [address] [id number] [place] [address] Sep, [facility] [place] [facility] [address] [id number] [place] [address] Sep, [facility] [address] [id number] [place] [address] Aug, [facility] [place] [facility] [address] [id number] [place] [address] Aug, [facility] [place] [facility] [address] [id number] [place] [address] Jul, [facility] [place] [facility] [address] [id number] [place] [address] Jul, [facility] [place] [facility] [address] [id number] [place] [address] Jun, [facility] [place] [facility] [address] [id number] [place] [address] Jun, [facility] [place] [facility] [address] [id number] [place] [address] Jun, [facility] [place] [facility] [address] [id number] [place] [address] May, [facility] [place] [facility] [address] [id number] [place] [address] Apr, [facility] [place] [facility] [address] [id number] [place] [address] Apr, [facility] [place] [facility] [address] [id number] [place] [address] Mar, [facility] [place] [facility] [address] [id number], [place] [address] Feb, [facility] [place] [facility] [address] [id number] [place] [address] Feb, [facility] [place] [facility] [address] [id number] [place] [address] January, [facility] [place] [facility] [address] [id number], [place] [address] January, [facility] [place] [facility] [address] [id number], [place] [address] Dec, [facility] [address] [id number] [place] [address] Dec, [facility] [address] [id number] [place] [address] Dec, [facility] [address] [id number] [place] [address] Dec, [facility] [address] [id number] [place] [address] Nov, [facility] [address] [id number] [place] [address] Nov, [facility] [address] [id number] [place] [address] Oct, [facility] [address] [id number] [place] [address] Oct, [facility] [address] [id number] [place] [address] Oct, [facility] [address] [id number] [place] [address] Sep, [facility] [address] [facility] [id number] [place] [address] Sep, [facility] [address] [id number] [place] [address] Sep, [facility] [place] [facility] [address] [id number] [place] [address] Sep, [facility] [place] [facility] [address] [id number] [place] [address] Sep, [facility] [place] [facility] [address] [id number] [place] [address] Aug, [facility] [address] [facility] [id number] [place] [address] Aug, [facility] [place] [facility] [address] [id number] [place] [address] Aug, [facility] [place] [facility] [address] [id number] [place] [address] Aug, [facility] [place] [facility] [address] [id number] [place] [address] Jul, [facility] [place] [facility] [address] [id number] [place] [address] Jul, [facility] [place] [facility] [address] [id number] [place] [address] Jul, [facility] [place] [facility] [address] [id number] [place] [address] Jul, [facility] [place] [facility] [address] [id number] [place] [address] Jun, [facility] [place] [facility] [address] [id number] [place] [address] Jun, [facility] [place] [facility] [address] [id number] [place] [address] Jun, [facility] [place] [facility] [address] [id number] [place] [address] Jun, [facility] [place] [facility] [address] [id number] [place] [address] Jun, [facility] [place] [facility] [address] [id number] [place] [address] 24 May, 2012 [facility] [place] [facility] [address] [id number] [place] [address] 13 Sep2011 [facility] [place] [facility] [address] [id number] [place] [address] 12 May, 2012 [facility] [place] [facility] [address] [id number] [place] [address] 11 May, 2012 [facility] [place] [facility] [address] [id number] [place] [address] May, [facility] [place] [facility] [address] [id number] [place] [address] May, [facility] [place] [facility] [address] [id number] [place] [address] May, [facility] [place] [facility] [address] [id number] [place] [address] Apr, [facility] [place] [facility] [address] [id number] [place] [address] Apr, [facility] [place] [facility] [address] [id number] [place] [address] Apr, [facility] [place] [facility] [address] [id number] [place] [address] Apr, [facility] [place] [facility] [address] [id number] [place] [address] Apr, [facility] [place] [facility] [address] [id number] [place] [address] Apr, [facility] [place] [facility] [address] [id number] [place] [address] Apr, [facility] [place] [facility] [address] [id number] [place] [address] Apr, [facility] [place] [facility] [address] [id number] [place] [address] Mar, [facility] [place] [facility] [address] [id number] [place] [address] Mar, [facility] [place] [facility] [address] [id number] [place] [id number] Mar, [facility] [place] [facility] [address] [id number] [place] [address] Feb, [facility] [place] [facility] [address] [id number] [place] [address] January, [facility] [place] [facility] [id number] [address] January, [facility] [id number] [address] January, [facility] [id number] [address] Dec, [facility] [id number] [address] Dec, [facility] [id number] [address] Dec, [facility] [id number] [address] Dec, [facility] [id number] [address] Dec, [facility] [id number] [place] [address] Dec, IMMUNIZATIONS No Known Immunizations SOCIAL HISTORY Never Assessed REASON FOR VISIT Hydrocodone- and temazepam- 11/23 PLAN OF CARE VITAL SIGNS MEDICATIONS Medication Instructions Dosage Frequency Start Date End Date Duration Status Hydrocodone-Acetaminophen 7.5-325 MG Orally, 5 times per day 2 tablet Nov, 30 days Active Temazepam 30 MG Orally [...] 04/02/2012 Surgical History appendectomy age 10 at [facility] Surgical History cholecystectomy-Ft. [facility]ov[facility] Gonzalez 2007 Surgical History coronary artery bypass graft LAD 02/2012 Surgical History heart cath x2 after bypass, pt has 5 stents Hospitalization History Chest pain, dizziness, renal insuff, heat cath showed CAD ([facility]) 01/03/2012 Hospitalization History CABG ([facility]) Dr. Banks 02/2012
--- OUTSIDE RECORDS SUMMARY | 2019-05-03 09:47 | XMS REPORT ---
Author Author BELEM FUENTES Organization [facility] Address [address] [place] [address] Care Team Providers Care Calender Feeder Name Role Phone BELEM FUENTES Unavailable PROBLEMS Type Condition ICD9-CM Code HCE75-FC Code Onset Dates Condition Status SNOMED Code Problem Chronic kidney disease N18.9 Active 393966367 Problem Chest wall pain R07.89 Active 532384939 Problem Chronic fatigue R53.82 Active 98287498 Problem Coronary artery disease involving ge[place] coronary artery of [place] heart without angina pectoris I25.10 Active [id number] Problem Anemia, unspecified type D64.9 Active 074890216 Problem Vertigo R42 Active 676402362 Problem Mixed hyperlipidemia E78.2 Active 267241920 Problem Iron deficiency anemia, unspecified iron deficiency anemia type D50.9 Active 96469828 ALLERGIES Substance Reaction Event Type Date Status Celebrex hot flashes Drug Allergy Sep, Active ENCOUNTERS Encounter Location Date Diagnosis [place] [id number] [place] [address] Feb, Chest wall pain R07.89 [place] [address] [place] [id number] [place] [address] January, Chest wall pain R07.89 [place] [address] [place] [id number] [place] [address] Dec, Chest wall pain R07.89 ; Coronary artery disease involving [place] coronary artery of [place] heart without angina pectoris I25.10 and Vertigo R42 [place] [address] [place] [id number] [place] [address] Dec, Chest wall pain R07.89 [place] [address] [place] [id number] [place] [address] Nov, Chest wall pain R07.89 [facility] [address] [address] Oct, Chest wall pain R07.89 [facility] [id number] [place] [address] Sep, Chest wall pain R07.[address] [facility] [address] [address] Sep, [facility] [address] [id number] [place] [address] Sep, Chest wall pain R07.89 [address] Sore throat J02.9 [facility] [id number] [place] [address] Sep, [facility] [id number] [place] [address] Sep, Sore throat J02.9 and Acute nasopharyngitis J00 [facility] [id number] [place] [address] Sep, [facility] [id number] [place] [address] Aug, Chest wall pain R07.89 [facility] [id number] [place] [address] Jul, Chest wall pain R07.89 [facility] [id number] [place] [address] Jul, [facility] [id number] [place] [address] Jul, Chest wall pain R07.89 [facility] [address] [id number] [place] [address] Jul, Chest wall pain R07.89 ; Chronic fatigue R53.82 ; Anemia, unspecified type D64.9 ; Vertigo R42 and Coronary artery disease involving ge[place] coronary artery of [place] heart without angina pectoris I25.10 [facility] [address] [address] Jun, Chest wall pain R07.89 [facility] [address] [address] Apr, Chest wall pain R07.89 [facility] [id number] [place] [address] Apr, [facility] [id number] [place] [address] Apr, Dental abscess K04.7 [facility] [address] [id number] [place] [address] Apr, [facility] [id number] [place] [address] Apr, Chest wall pain R07.89 [facility] [id number] [place] [address] Mar, Chest wall pain R07.89 [facility] [id number] [place] [address] Feb, Chest wall pain R07.89 ; Lateral epicondylitis of right elbow M77.11 and Mixed hyperlipidemia E78.2 [facility] [id number] [place] [address] Feb, Chest wall pain R07.89 [facility] [address] [address] January, [facility] [address] [place] [id number] [place] [address] January, Chest wall pain R07.89 [facility] [address] [id number] [place] [address] Dec, Chest wall pain R07.89 [facility] [address] [place] [id number] [place] [address] Nov, [facility] [address] [place] [id number] [place] [address] Nov, Hypokalemia E87.6 [facility] [address] [place] [address] [id number] [place] [address] Nov, Hypokalemia E87.6 and Iron deficiency anemia, unspecified iron deficiency anemia type D50.9 [facility] [address] [address] Nov, [facility] [address] [place] [id number] [place] [address] Nov, Nausea R11.[address] [facility] [address] [place] [id number] [place] [address] Nov, [facility] [address] [address] Nov, [facility] [address] [place] [id number] [place] [address] Nov, Chest wall pain R07.89 [facility] [address] [place] [id number] [place] [address] Nov, Bronchitis J40 [facility] [address] [place] [id number] [place] [address] Oct, Chest wall pain R07.89 [facility] [address] [place] [address] [id number] [place] [address] Sep, Chest wall pain R07.89 [facility] [address] [place] [id number] [place] [address] Aug, Chest wall pain R07.89 [facility] [address] [place] [address] [id number] [place] [address] Aug, Chest pain on breathing R07.1 [facility] [address] [address] Jul, [facility] [address] [place] [address] [id number] [place] [address] Jun, [facility] [address] [place] [id number] [place] [address] May, Chest wall pain R07.89 ; Iron deficiency anemia, unspecified iron deficiency anemia type D50.9 ; Chronic kidney disease N18.9 and Encounter for immunization Z23 [facility] [address] [place] [id number] [place] [address] May, [facility] [address] [place] [id number] [place] [address] Apr, [place] [address] [place] [id number] [place] [address] Mar, [place] [address] [address] Mar, [facility] [address] [place] [id number] [place] [address] Feb, [place] [address] [place] [id number] [place] [address] Feb, Iron deficiency anemia, unspecified iron deficiency anemia type D50.9 [facility] [address] [place] [address] [id number] [place] [address] Feb, Dehydration E86.0 ; Diarrhea, unspecified type R19.7 ; Dizziness R42 and Other specified hypotension I95.89 [facility] [address] [place] [id number] [place] [address] Feb, Anemia, unspecified type D64.9 [place] [address] [place] [id number] [place] [address] January, Anemia, unspecified type D64.9 [place] [address] [place] [id number] [place] [address] January, Paresthesia R20.2 [place] [address] [place] [id number] [place] [address] January, Chest wall pain R07.89 [facility] [address] [address] Dec, Insomnia G47.00 [facility] [address] [address] Dec, Chest pain on breathing R07.1 [facility] [address] [address] Nov, Chest pain on breathing R07.1 [facility] [address] [address] Oct, [facility] [address] [address] Oct, [facility] [address] [address] Oct, Low back pain M54.5 and Chest wall pain R07.89 [facility] [address] [address] Oct, Pleurodynia R07.81 [facility] [address] [place] [id number] [place] [address] Sep, Pleurodynia R07.81 and Other nerve root and plexus disorders G54.8 [facility] [address] [place] [id number] [place] [address] Aug, Chronic kidney disease N18.9 ; Encounter for immunization Z23 ; Chest wall pain R07.89 ; Urinary frequency R35.[address] [facility] [address] [address] Aug, [facility] [address] [address] Jul, [facility] [address] [place] [address] Jul, [facility] [address] [facility] [id number] [address] Jun, [facility] [address] [facility] [id number] [address] Jun, [facility] [address] [facility] [id number], [place] [address] May, [facility] [address] [facility] [id number], [place] [address] May, [facility] [address] [facility] [id number] [address] May, [facility] [address] [address] May, Coronary atherosclerosis of unspecified type of vessel, ge[place] or graft 414.00 [facility] [address] [facility] [id number] [address] Apr, [facility] [address] [id number] [address] Apr, [facility] [address] [address] Apr, [facility] [address], [place] [address] Apr, [facility] [address] [address] Apr, [facility] [address] [facility] [id number], [place] [address] Apr, Coronary atherosclerosis of unspecified type of vessel, [place] or graft 414.00 and Left-sided chest wall pain 786.52 [facility] [address] [id number], [place] [address] Mar, [facility] [address] [id number] [address] Mar, [facility] [address] [id number] [place] [address] Feb, [facility] [address] [id number] [place] [address] Feb, [facility] [address] [facility] [id number] [place] [address] January, [facility] [address] [id number] [place] [address] January, [facility] [address] [id number] [place] [address] January, [facility] [address] [facility] [id number] [place] [address] January, Neuropathic pain of chest 353.8 [facility] [id number] [place] [address] Dec, [facility] [address] [facility] [id number] [place] [address] Dec, [facility] [address] [facility] [id number] [place] [address] Nov, [facility] [place] [facility] [address] [facility] [id number] [place] [address] Nov, [facility] [place] [facility] [address] [facility] [id number] [place] [address] Nov, [facility] [place] [facility] [address] [facility] [id number] [place] [address] Nov, [facility] [place] [facility] [address] [facility] [id number] [place] [address] Nov, [facility] [place] [facility] [address] [facility] [id number] [place] [address] Nov, [facility] [place] [facility] [address] [facility] [id number] [place] [address] Oct, [facility] [place] [facility] [address] [id number] [place] [address] Oct, [facility] [place] [facility] [address] [id number] [place] [address] Oct, [facility] [place] [facility] [address] [id number] [place] [address] Oct, 2014 [facility] [place] [facility] [address] [id number] [place] [address] Oct, [facility] [place] [facility] [address] [id number] [place] [address] Oct, [facility] [place] [facility] [address] [id number] [place] [address] Sep, [facility] [place] [facility] [address] [id number] [place] [address] Sep, [facility] [place] [facility] [address] [id number] [place] [address] Sep, [facility] [place] [facility] [address] [id number] [place] [address] Sep, [facility] [place] [facility] [address] [facility] [id number] [place] [address] Aug, [facility] [place] [facility] [address] [id number] [place] [address] Aug, [facility] [place] [facility] [address] [id number] [place] [address] Aug, [facility] [place] [facility] [address] [id number] [place] [address] Aug, [facility] [place] [facility] [address] [id number] [place] [address] Aug, [facility] [place] [facility] [address] [id number] [place] [address] Aug, [facility] [place] [facility] [address] [id number] [place] [address] Aug, [facility] [place] [facility] [address] [id number] [place] [address] Aug, [facility] [place] [facility] [address] [id number] [place] [address] Aug, [facility] [place] [facility] [address] [id number] [place] [address] Aug, [facility] [place] [facility] [address] [id number] [place] [address] Jul, [facility] [place] [facility] [address] [id number] [place] [address] Jul, [facility] [place] [facility] [address] [id number] [place] [address] Jul, [facility] [place] [facility] [address] [id number] [place] [address] Jul, [facility] [place] [facility] [address] [id number] [place] [address] Jun, [facility] [place] [facility] [address] [id number] [place] [address] Jun, [facility] [place] [facility] [address] [id number] [place] [address] Jun, [facility] [place] [facility] [address] [id number] [place] [address] Jun, [facility] [place] [facility] [address] [id number] [place] [address] May, [facility] [place] [facility] [address] [id number] [place] [address] May, [facility] [place] [facility] [address] [id number] [place] [address] May, [facility] [place] [facility] [address] [id number] [place] [address] May, [facility] [place] [facility] [address] [id number] [place] [address] Apr, [facility] [address] [id number] [place] [address] Apr, [facility] [place] [facility] [address] [id number] [place] [address] Feb, [facility] [address] [id number] [place] [address] January, [facility] [place] [facility] [address] [id number] [place] [address] January, [facility] [address] [id number] [place] [address] January, [facility] [address] [id number] [place] [address] January, [facility] [address] [id number] [place] [address] January, [facility] [address] [id number] [place] [address] January, [facility] [address] [id number] [place] [address] Dec, [facility] [address] [id number] [place] [address] Dec, [facility] [place] [facility] [address] [id number] [place] [address] Dec, [facility] [place] [facility] [address] [id number] [place] [address] Dec, [facility] [place] [facility] [address] [id number] [place] [address] Dec, [facility] [place] [facility] [address] [id number] [place] [address] Dec, [facility] [place] [facility] [address] [id number] [place] [address] Dec, [facility] [place] [facility] [address] [id number] [place] [address] Dec, [facility] [place] [facility] [address] [id number] [place] [address] Nov, [facility] [place] [facility] [address] [id number] [place] [address] Nov, [facility] [place] [facility] [address] [id number] [place] [address] Nov, [facility] [place] [facility] [address] [id number] [place] [address] Nov, [facility] [place] [facility] [address] [id number] [place] [address] Nov, [facility] [place] [facility] [address] [id number] [place] [address] Nov, [facility] [place] [facility] [address] [id number] [place] [address] Nov, [facility] [place] [facility] [address] [id number] [place] [address] Oct, [facility] [place] [facility] [address] [id number] [place] [address] Oct, [facility] [place] [facility] [address] [id number] [place] [address] Oct, [facility] [place] [facility] [address] [id number] [place] [address] Oct, [facility] [place] [facility] [address] [id number] [place] [address] Sep, [facility] [place] [facility] [address] [id number] [place] [address] Sep, [facility] [place] [facility] [address] [id number] [place] [address] Sep, [facility] [place] [facility] [address] [id number] [place] [address] Sep, [facility] [place] [facility] [address] [id number] [place] [address] Aug, [facility] [place] [facility] [address] [id number] [place] [address] Aug, [facility] [place] [facility] [address] [id number] [place] [address] Jul, [facility] [place] [facility] [address] [id number] [place] [address] Jul, [facility] [place] [facility] [address] [id number] [place] [address] Jun, [facility] [place] [facility] [address] [id number] [place] [address] Jun, [facility] [place] [facility] [address] [id number] [place] [address] Jun, [facility] [place] [facility] [address] [id number] [place] [address] May, [facility] [place] [facility] [address] [id number] [place] [address] Apr, [facility] [place] [facility] [address] [id number] [place] [address] Apr, [facility] [place] [facility] [address] [id number] [place] [address] Mar, [facility] [place] [facility] [address] [id number] [place] [address] Feb, [facility] [place] [facility] [address] [id number] [place] [address] Feb, [facility] [place] [facility] [address] [id number] [place] [address] January, [facility] [place] [facility] [address] [id number] [place] [address] January, [facility] [place] [facility] [address] [id number] [place] [address] Dec, [facility] [address] [id number] [place] [address] Dec, [facility] [address] [id number] [place] [address] Dec, [facility] [address] [id number] [place] [address] Dec, [facility] [address] [id number] [place] [address] Nov, [facility] [address] [id number] [place] [address] Nov, [facility] [address] [id number] [place] [address] Oct, [facility] [address] [id number] [place] [address] Oct, [facility] [address] [id number] [place] [address] Oct, [facility] [address] [id number] [place] [address] Sep, [facility] [address] [id number] [place] [address] Sep, [facility] [address] [id number], [place] [address] Sep, [facility] [place] [facility] [address] [id number] [place] [address] Sep, [facility] [place] [facility] [address] [id number] [place] [address] Sep, [facility] [place] [facility] [address] [id number] [place] [address] Aug, [facility] [address] [id number], [place] [address] Aug, [facility] [place] [facility] [address] [id number] [place] [address] Aug, [facility] [place] [facility] [address] [id number] [place] [address] Aug, [facility] [place] [facility] [address] [facility] [id number] [place] [address] Jul, [facility] [place] [facility] [address] [id number] [place] [address] Jul, [facility] [place] [facility] [address] [id number] [place] [address] Jul, [facility] [place] [facility] [address] [facility] [id number] [place] [address] Jul, [facility] [place] [facility] [address] [id number] [place] [address] Jun, [facility] [place] [facility] [address] [facility] [id number] [place] [address] Jun, [facility] [place] [facility] [address] [id number] [place] [address] Jun, [facility] [place] [facility] [address] [facility] [id number] [place] [address] Jun, [facility] [place] [facility] [address] [facility] [id number], [place] [address] Jun, [facility] [place] [facility] [address] [facility] [id number], [place] [address] 24 May, 2012 [facility] [place] [facility] [address] [id number] [place] [address] 13 May, 2012 [facility] [place] [facility] [address] [facility] [id number] [place] [address] 12 May, 2012 [facility] [place] [facility] [address] [facility] [id number] [place] [address] 11 May, 2012 [facility] [place] [facility] [address] [id number] [place] [address] 10 May, 2012 [facility] [place] [facility] [address] [id number] [place] [address] 06 May, 2012 [facility] [place] [facility] [address] [id number] [place] [address] May, [facility] [place] [facility] [address] [id number] [place] [address] Apr, [facility] [place] [facility] [address] [id number] [place] [address] Apr, [facility] [place] [facility] [address] [id number] [place] [address] Apr, [facility] [place] [facility] [address] [id number] [place] [address] Apr, [facility] [place] [facility] [address] [id number] [place] [address] Apr, [facility] [place] [facility] [address] [id number] [place] [address] Apr, [facility] [place] [facility] [address] [id number] [place] [address] Apr, [facility] [place] [facility] [address] [id number] [place] [address] Apr, [facility] [place] [facility] [address] [id number] [place] [address] Mar, [facility] [place] [facility] [address] [id number] [place] [address] Mar, [facility] [place] [facility] [address] [id number] [place] [address] Mar, [facility] [place] [facility] [address] [id number] [place] [address] Feb, [facility] [place] [facility] [address] [id number] [place] [address] January, [facility] [address] [id number] [address] January, [facility] [id number] [address] January, [facility] [id number] [address] Dec, [facility] [id number] [address] Dec, [facility] [id number] [address] Dec, [facility] [id number] [address] Dec, [facility] [id number] [address] Dec, [facility] [address] [id number] [address] Dec, IMMUNIZATIONS No Known Immunizations SOCIAL HISTORY Never Assessed REASON FOR VISIT fever from sep 15 and now Sore throat, cough and PT feels horible-[facility] PLAN OF CARE Activity Details Follow Up 3 Months Reason: VITAL SIGNS Height 70 in 2017-10-02 Weight 216.7 lbs 2017-10-02 Temperature 98.4 degrees Fahrenheit 2017-10-02 Heart Rate 81 bpm 2017-10-02 Respiratory Rate 20 2017-10-02 BMI 31.09 kg/m2 2017-10-02 Blood pressure systolic 136 mmHg 2017-10-02 Blood pressure diastolic 88 mmHg 2017-10-02 MEDICATIONS Medication Instructions Dosage Frequency Start Date End Date Duration Status Aspirin 81 mg take 1 tablet (81 mg) by oral route once daily Nov, Active Lyrica 50 mg Orally Three times a day 1 capsule 8h Not-Taking Fish Oil Concentrate 1000 mg 1 Capsule by Oral route 2 times per day Sep, Active Polysaccharide Iron Complex 150 MG Orally Once a day 1 capsule 24h Nov, 30 day(s) Active Toprol XL 25 MG Orally Once a day 1 tablet 24h Active Magnesium 300 MG Orally Once a day 1 capsule with a meal 24h Not-Taking Tennis Elbow Strap/Support Pad - to wear on the right elbow 24h Feb, Not-Taking Diclofenac Sodium 75 MG Orally 2 times a day ONE TABLET 12h 30 Active Simvastatin 40 mg Orally Once a day 1 tablet 24h 30 Active Temazepam 30 MG TAKE ONE CAPSULE BY MOUTH AT BEDTIME NEEDED 30 Active Seroquel 200 mg Orally Once a day 1 tablet 24h 30 Active Multivitamin 1 Tablet by Oral route 1 time per day Sep, Active Hydrocodone-Acetaminophen 7.5-325 MG Orally, 5 times per day 2 tablet Aug, 30 days Active Amoxicillin 500 mg Orally 3 times a day 1 capsule 8h Sep, Sep, 07 days Active RESULTS No Results PROCEDURES Procedure Date Ordered Result Body Site [facility]ISIT ESTABLISHED PATIENT Oct 02, 2017 INSTRUCTIONS MEDICATIONS ADMINISTERED No Known Medications MEDICAL [...] dizziness, renal insuff, heat cath showed CAD ([facility]) 01/03/2012 Hospitalization History CABG ([facility]) Dr. Banks 02/2012
--- OUTSIDE RECORDS SUMMARY | 2019-05-03 09:48 | XMS REPORT ---
Author Author BELEM FUENTES Organization [employer] Address Unknown Phone Unavailable Care Team Providers Care Science Consultant Name Role Phone BELEM FUENTES CP Unavailable Allergies No Known Allergies Problems Problem Type Condition Code Onset Dates Condition Status Problem Coronary atherosclerosis of unspecified type of vessel, [place] or graft 414.00 Active Problem Dizziness and giddiness 780.4 Active Problem Anxiety state, unspecified 300.00 Active Problem Chronic airway obstruction, not elsewhere classified 496 Active Problem Painful respiration 786.52 Active Medications Medication Code System Code Instructions Start Date End Date Status Dosage Hydrocodone-Acetaminophen [facility] [address]-82 7.5-325 MG Orally every 6 hrs December 10, 2014 1-2 tablet as needed Results No Known Results Summary Purpose [employer] Submission
--- OUTSIDE RECORDS SUMMARY | 2019-05-03 09:48 | XMS REPORT ---
Author Author BELME FUENTES [facility] Address [address] [place] [address] Care Team Providers Care Scrap Metal Collector Name Role Phone BELEM FUENTES Unavailable PROBLEMS Type Condition ICD9-CM Code LPB17-[id number] Code Onset Dates Condition Status SNOMED Code Problem Mixed hyperlipidemia E78.2 Active 838417495 Problem Iron deficiency anemia, unspecified iron deficiency anemia type D50.9 Active 31828109 Problem Chronic kidney disease N18.9 Active 306535020 Problem Chest wall pain R07.89 Active 773871527 Problem Anemia, unspecified type D64.9 Active 987817089 Problem Vertigo R42 Active 011776612 ALLERGIES Substance Reaction Event Type Date Status Celebrex hot flashes Drug Allergy Nov, Active SOCIAL HISTORY Never Assessed PLAN OF CARE Activity Details Follow Up 3 Months Reason: VITAL SIGNS Height 70 in 2016-12-01 Weight 183.9 lbs 2016-12-01 Temperature 98.1 degrees Fahrenheit 2016-12-01 Heart Rate 104 bpm 2016-12-01 Respiratory Rate 24 2016-12-01 BMI 26.38 kg/m2 2016-12-01 Blood pressure systolic 102 mmHg 2016-12-01 Blood pressure diastolic 66 mmHg 2016-12-01 MEDICATIONS Medication Instructions Dosage Frequency Start Date End Date Duration Status Zithromax 250 MG Orally Once a day 2 tablets on the first day, then 1 tablet daily for 4 days 24h Nov, Nov, 5 day(s) Active Lisinopril 5 mg 1 tablet by Oral route 1 time per day Dec, Active Restoril 30 MG Orally Once a day 1 capsule at bedtime as needed 24h Oct, Active Simvastatin 40 MG TAKE ONE TABLET BY MOUTH DAILY 30 Active Lyrica 50 mg TAKE ONE CAPSULE BY MOUTH THREE TIMES DAILY FOR FIBROMYALGIA OR IDIOAPATHIC NEUROPATHY 8h Active Diclofenac Sodium 75 MG Orally 2 times a day ONE TABLET 12h 30 Active Hydrocodone-Acetaminophen 7.5-325 MG Orally, 5 times per day 2 tablet 10 Oct, 2016 Active Acidophilus 100 MG Orally 2-3 times a day until diarrhea resolves 1 capsule Feb, Active Multivitamin 1 Tablet by Oral route 1 time per day Sep, Active Citalopram Hydrobromide 20 MG Orally Once a day 1 tablet 24h Active Seroquel 200 MG Orally Once a day 1 tablet 24h 30 Active Fish Oil Concentrate 1000 mg 1 Capsule by Oral route 2 times per day Sep, Active Temazepam 30 MG TAKE ONE CAPSULE BY MOUTH AT BEDTIME NEEDED 30 Active PredniSONE 20 MG 2 qd 4d, 1 qd 4d Oct, Active Aspirin 81 mg take 1 tablet (81 mg) by oral route once daily Nov, Active RESULTS No Results PROCEDURES Procedure Date Ordered Result Body Site [facility] VISIT ESTABLISHED PATIENT December 01, 2016 IMMUNIZATIONS No Known Immunizations MEDICAL (GENERAL) HISTORY [...] 04/02/2012 Surgical History appendectomy age 10 at [facility] Surgical History cholecystectomy-[facility] 2007 Surgical History coronary artery bypass graft LAD 02/2012 Surgical History heart cath x2 after bypass, pt has 5 stents Hospitalization History Chest pain, dizziness, renal insuff, heat cath showed CAD ([facility]) 01/03/2012 Hospitalization History CABG ([facility]) Dr. Banks 02/2012
--- OUTSIDE RECORDS SUMMARY | 2019-05-03 09:48 | XMS REPORT ---
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 I25.10 Active 9740560331206 Problem Anemia, unspecified type D64.9 Active 953559283 Problem Vertigo R42 Active 880904013 Problem Mixed hyperlipidemia E78.2 Active 883633229 Problem Iron deficiency anemia, unspecified iron deficiency anemia type D50.9 Active [id number] ALLERGIES No Information ENCOUNTERS Encounter Location Date Diagnosis [place] [id number] [place] [address] Feb, Chest wall pain R07.89 [place] [id number] [place] [address] January, Chest wall pain R07.89 [place] [id number] [place] [address] Dec, Chest wall pain R07.89 ; Coronary artery disease involving twenty-nine palms coronary artery of twenty-nine palms heart without angina pectoris I25.10 and Vertigo R42 [place] [id number] [place] [address] Dec, Chest wall pain R07.89 [place] [id number] [place] [address] Nov, Chest wall pain R07.89 [place] [id number] [place] [address] Oct, Chest wall pain R07.89 [facility] [id number] [place] [address] Sep, Chest wall pain R07.89 and Pleurodynia R07.81 [facility] [id number] [place] [address] Sep, [facility] [id number] [place] [address] Sep, Chest wall pain R07.89 and Sore throat J02.9 [facility] [address] [address] Sep, [facility] [id number] [place] [address] Sep, Sore throat J02.9 and Acute nasopharyngitis J00 [facility] [id number] [place] [address] Sep, [facility] [id number] [place] [address] Aug, Chest wall pain R07.89 [facility] [id number] [place] [address] Jul, Chest wall pain R07.89 [facility] [id number] [place] [address] Jul, [facility] [id number] [place] [address] Jul, Chest wall pain R07.89 [facility] [id number] [place] [address] Jul, Chest wall pain R07.89 ; Chronic fatigue R53.82 ; Anemia, unspecified type D64.9 ; Vertigo R42 and Coronary artery disease involving twenty-nine palms coronary artery of twenty-nine palms heart without angina pectoris I25.10 [facility] [address] [facility] [id number] [address] Jun, Chest wall pain R07.89 [facility] [address] [facility] [id number] [place] [address] Apr, Chest wall pain R07.89 [facility] [address] [facility] [id number], [place] [address] Apr, [facility] [address] [facility] [id number] [place] [address] Apr, Dental abscess K04.7 [facility] [address] [facility] [id number] [place] [address] Apr, [facility] [id number] [place] [address] Apr, Chest wall pain R07.89 [facility] [id number] [place] [address] Mar, Chest wall pain R07.89 [facility] [id number] [place] [address] Feb, Chest wall pain R07.89 ; Lateral epicondylitis of right elbow M77.11 and Mixed hyperlipidemia E78.2 [facility] [id number] [address] Feb, Chest wall pain R07.89 [facility] [id number] [place] [address] January, [facility] [id number] [place] [address] January, Chest wall pain R07.89 [facility] [id number] [place] [address] Dec, Chest wall pain R07.89 [facility] [address] [id number] [address] Nov, [facility] [id number] [place] [address] Nov, Hypokalemia E87.6 [facility] [id number] [place] [address] Nov, Hypokalemia E87.6 and Iron deficiency anemia, unspecified iron deficiency anemia type D50.9 [facility] [id number] [place] [address] Nov, [facility] [id number] [place] [address] Nov, Nausea R11.0 and Hypovolemia E86.1 [facility] [address] [address] Nov, [facility] [id number] [place] [address] Nov, [facility] [id number] [place] [address] Nov, Chest wall pain R07.89 [facility] [id number] [place] [address] Nov, Bronchitis J40 [facility] [id number] [place] [address] Oct, Chest wall pain R07.89 [facility] [id number] [place] [address] Sep, Chest wall pain R07.89 [facility] [id number] [place] [address] Aug, Chest wall pain R07.89 [facility] [id number] [place] [address] Aug, Chest pain on breathing R07.1 [facility] [id number] [place] [address] Jul, [facility] [id number] [place] [address] Jun, [facility] [id number] [place] [address] May, Chest wall pain R07.89 ; Iron deficiency anemia, unspecified iron deficiency anemia type D50.9 ; Chronic kidney disease N18.9 and Encounter for immunization Z23 [facility] [address] [address] May, [facility] [id number] [place] [address] Apr, [place] [address] [address] Mar, [place] [address] [address] Mar, [facility] [id number] [place] [address] Feb, [facility] [id number] [place] [address] Feb, Iron deficiency anemia, unspecified iron deficiency anemia type D50.9 [facility] [id number] [place] [address] Feb, Dehydration E86.0 ; Diarrhea, unspecified type R19.7 ; Dizziness R42 and Other specified hypotension I95.89 [facility] [id number] [place] [address] Feb, Anemia, unspecified type D64.9 [place] [id number] [place] [address] January, Anemia, unspecified type D64.9 [facility] [id number] [place] [address] January, Paresthesia R20.2 [facility] [id number] [place] [address] January, Chest wall pain R07.89 [facility] [id number] [place] [address] Dec, Insomnia G47.00 [facility] [address] [address] Dec, Chest pain on breathing R07.1 [facility] [address] [address] Nov, Chest pain on breathing R07.1 [facility] [address] [address] Oct, [facility] [address] [address] Oct, [facility] [address] [address] Oct, Low back pain M54.5 and Chest wall pain R07.89 [facility] [address] [address] Oct, Pleurodynia R07.81 [facility] [address] [address] Sep, Pleurodynia R07.81 and Other nerve root and plexus disorders G54.8 [facility] [address] [address] Aug, Chronic kidney disease N18.9 ; Encounter for immunization Z23 ; Chest wall pain R07.89 ; Urinary frequency R35.0 and Vertigo R42 [facility] [address] [address] Aug, [facility] [address] [address] Jul, [facility] [address] [address] Jul, [facility] [address] [id number], [place] [address] Jun, [facility] [address] [facility] [id number], [place] [address] Jun, [facility] [address] [facility] [id number][place] [address] May, [facility] [address] [facility] [id number], [place] [address] May, [facility] [address] [facility] [id number], [place] [address] May, [facility] [address] [facility] [id number], [place] [address] May, Coronary atherosclerosis of unspecified type of vessel, twenty-nine palms or graft 414.00 [facility] [address] [address] Apr, [facility] [address] [facility] [id number], [place] [address] Apr, [facility] [address] [address] Apr, [facility] [address] [address] Apr, [facility] [id number] [address] Apr, [facility] [address] [facility] [id number], [place] [address] Apr, Coronary atherosclerosis of unspecified type of vessel, twenty-nine palms or graft 414.00 and Left-sided chest wall pain 786.52 [facility] [id number] [address] Mar, [facility] [id number] [address] Mar, [facility] [id number] [place] [address] Feb, [facility] [address] [id number] [place] [address] Feb, [facility] [address] [id number] [place] [address] January, [facility] [address] [id number] [place] [address] January, [facility] [address] [id number] [place] [address] January, [facility] [address] [facility] [id number] [place] [address], [place] [address] January, Neuropathic pain of chest 353.8 [facility] [address] [facility] [id number] [place] [address] Dec, [facility] [address] [facility] [id number] [place] [address] Dec, [facility] [address] [facility] [id number] [place] [address] Nov, [facility] [address] [facility] [id number] [place] [address] Nov, [facility] [address] [facility] [id number] [place] [address] Nov, [facility] [address] [facility] [id number] [place] [address] Nov, [facility] [address] [facility] [id number] [place] [address] Nov, [facility] [place] [facility] [address] [facility] [id number] [place] [address] Nov, [facility] [place] [facility] [address] [facility] [id number], [place] [address] Oct, [facility] [place] [facility] [address] [facility] [id number], [place] [address] Oct, [facility] [place] [facility] [address] [id number] [place] [address] Oct, [facility] [place] [facility] [address] [id number] [place] [address] Oct, [facility] [place] [facility] [address] [id number] [place] [address] Oct, [facility] [place] [facility] [address] [id number] [place] [address] Oct, [facility] [place] [facility] [address] [id number] [place] [address] Sep, [facility] [place] [facility] [address] [id number] [place] [address] Sep, [facility] [place] [facility] [address] [facility] [id number] [place] [address] Sep, [facility] [place] [facility] [address] [id number] [place] [address] Sep, [facility] [place] [facility] [address] [facility] [id number] [place] [address] Aug, [facility] [place] [facility] [address] [facility] [id number] [place] [address] Aug, [facility] [place] [facility] [address] [facility] [id number] [place] [address] Aug, [facility] [place] [facility] [address] [id number] [place] [address] Aug, [facility] [place] [facility] [address] [id number] [place] [address] Aug, [facility] [place] [facility] [address] [id number] [place] [address] Aug, [facility] [place] [facility] [address] [facility] [id number] [place] [address] Aug, [facility] [place] [facility] [address] [id number] [place] [address] Aug, [facility] [place] [facility] [address] [id number] [place] [address] Aug, [facility] [place] [facility] [address] [id number] [place] [address] Aug, [facility] [place] [facility] [address] [id number] [place] [address] Jul, [facility] [place] [facility] [address] [id number] [place] [address] Jul, [facility] [place] [facility] [address] [id number] [place] [address] Jul, [facility] [place] [facility] [address] [id number] [place] [address] Jul, [facility] [place] [facility] [address] [id number] [place] [address] Jun, [facility] [place] [facility] [address] [id number] [place] [address] Jun, [facility] [place] [facility] [address] [id number] [place] [address] Jun, [facility] [place] [facility] [address] [facility] [id number] [place] [address] Jun, [facility] [place] [facility] [address] [id number] [place] [address] May, [facility] [place] [facility] [address] [id number] [place] [address] May, [facility] [place] [facility] [address] [id number] [place] [address] May, [facility] [place] [facility] [address] [id number] [place] [address] May, [facility] [place] [facility] [address] [id number] [place] [address] Apr, [facility] [place] [facility] [address] [id number] [place] [address] Apr, [facility] [place] [facility] [address] [id number] [place] [address] Feb, [facility] [place] [facility] [address] [id number] [place] [address] January, [facility] [place] [facility] [address] [id number] [place] [address] January, [facility] [place] [facility] [address] [id number] [place] [address] January, [facility] [place] [facility] [address] [id number] [place] [address] January, [facility] [place] [facility] [address] [id number] [place] [address] January, [facility] [place] [facility] [address] [id number] [place] [address] January, [facility] [place] [facility] [address] [id number] [place] [address] Dec, [facility] [place] [facility] [address] [id number] [place] [address] Dec, [facility] [place] [facility] [address] [id number] [place] [address] Dec, [facility] [place] [facility] [address] [id number] [place] [address] Dec, [facility] [place] [facility] [address] [id number] [place] [address] Dec, [facility] [place] [facility] [address] [id number] [place] [address] Dec, [facility] [place] [facility] [address] [id number] [place] [address] Dec, [facility] [place] [facility] [address] [id number] [place] [address] Dec, [facility] [place] [facility] [address] [id number] [place] [address] Nov, [facility] [place] [facility] [address] [id number] [place] [address] Nov, [facility] [place] [facility] [address] [id number] [place] [address] Nov, [facility] [place] [facility] [address] [id number] [place] [address] Nov, [facility] [place] [facility] [address] [id number] [place] [address] Nov, [facility] [place] [facility] [address] [id number] [place] [address] Nov, [facility] [place] [facility] [address] [id number] [place] [address] Nov, [facility] [place] [facility] [address] [id number] [place] [address] Oct, [facility] [place] [facility] [address] [id number] [place] [address] Oct, [facility] [place] [facility] [address] [id number] [place] [address] Oct, [facility] [place] [facility] [address] [id number] [place] [address] Oct, [facility] [place] [facility] [address] [id number] [place] [address] Sep, [facility] [place] [facility] [address] [id number] [place] [address] Sep, [facility] [place] [facility] [address] [id number] [place] [address] Sep, [facility] [place] [facility] [address] [id number] [place] [address] Sep, [facility] [address] [id number] [place] [address] Aug, [facility] [place] [facility] [address] [id number] [place] [address] Aug, [facility] [place] [facility] [address] [id number] [place] [address] Jul, [facility] [place] [facility] [address] [id number] [place] [address] Jul, [facility] [place] [facility] [address] [id number] [place] [address] Jun, [facility] [place] [facility] [address] [id number] [place] [address] Jun, [facility] [place] [facility] [address] [id number] [place] [address] Jun, [facility] [place] [facility] [address] [id number] [place] [address] May, [facility] [place] [facility] [address] [id number] [place] [address] Apr, [facility] [place] [facility] [address] [id number] [place] [address] Apr, [facility] [place] [facility] [address] [id number] [place] [address] Mar, [facility] [place] [facility] [address] [id number], [place] [address] Feb, [facility] [place] [facility] [address] [id number] [place] [address] Feb, [facility] [place] [facility] [address] [id number] [place] [address] January, [facility] [place] [facility] [address] [id number], [place] [address] January, [facility] [place] [facility] [address] [id number], [place] [address] Dec, [facility] [address] [id number] [place] [address] Dec, [facility] [address] [id number] [place] [address] Dec, [facility] [address] [id number] [place] [address] Dec, [facility] [address] [id number] [place] [address] Nov, [facility] [address] [id number] [place] [address] Nov, [facility] [address] [id number] [place] [address] Oct, [facility] [address] [id number] [place] [address] Oct, [facility] [address] [id number] [place] [address] Oct, [facility] [address] [id number] [place] [address] Sep, [facility] [address] [facility] [id number] [place] [address] Sep, [facility] [address] [id number] [place] [address] Sep, [facility] [place] [facility] [address] [id number] [place] [address] Sep, [facility] [place] [facility] [address] [id number] [place] [address] Sep, [facility] [place] [facility] [address] [id number] [place] [address] Aug, [facility] [address] [facility] [id number] [place] [address] Aug, [facility] [place] [facility] [address] [id number] [place] [address] Aug, [facility] [place] [facility] [address] [id number] [place] [address] Aug, [facility] [place] [facility] [address] [id number] [place] [address] Jul, [facility] [place] [facility] [address] [id number] [place] [address] Jul, [facility] [place] [facility] [address] [id number] [place] [address] Jul, [facility] [place] [facility] [address] [id number] [place] [address] Jul, [facility] [place] [facility] [address] [id number] [place] [address] Jun, [facility] [place] [facility] [address] [id number] [place] [address] Jun, [facility] [place] [facility] [address] [id number] [place] [address] Jun, [facility] [place] [facility] [address] [id number] [place] [address] Jun, [facility] [place] [facility] [address] [id number] [place] [address] Jun, [facility] [place] [facility] [address] [id number] [place] [address] 24 May, 2012 [facility] [place] [facility] [address] [id number] [place] [address] 13 Sep2011 [facility] [place] [facility] [address] [id number] [place] [address] 12 May, 2012 [facility] [place] [facility] [address] [id number] [place] [address] 11 May, 2012 [facility] [place] [facility] [address] [id number] [place] [address] May, [facility] [place] [facility] [address] [id number] [place] [address] May, [facility] [place] [facility] [address] [id number] [place] [address] May, [facility] [place] [facility] [address] [id number] [place] [address] Apr, [facility] [place] [facility] [address] [id number] [place] [address] Apr, [facility] [place] [facility] [address] [id number] [place] [address] Apr, [facility] [place] [facility] [address] [id number] [place] [address] Apr, [facility] [place] [facility] [address] [id number] [place] [address] Apr, [facility] [place] [facility] [address] [id number] [place] [address] Apr, [facility] [place] [facility] [address] [id number] [place] [address] Apr, [facility] [place] [facility] [address] [id number] [place] [address] Apr, [facility] [place] [facility] [address] [id number] [place] [address] Mar, [facility] [place] [facility] [address] [id number] [place] [address] Mar, [facility] [place] [facility] [address] [id number] [place] [address] Mar, [facility] [place] [facility] [address] [id number] [place] [address] Feb, [facility] [place] [facility] [address] [id number] [place] [address] January, [facility] [place] [facility] [address] [id number] [address] January, [facility] [id number] [place] [address] January, [facility] [id number] [place] [address] Dec, [facility] [id number] [address] Dec, [facility] [id number] [address] Dec, [facility] [id number] [address] Dec, [facility] [id number] [place] [address] Dec, [facility] [id number] [place] [address] Dec, IMMUNIZATIONS No Known Immunizations SOCIAL HISTORY Never Assessed REASON FOR VISIT Refill request PLAN OF CARE VITAL SIGNS MEDICATIONS Medication Instructions Dosage Frequency Start Date End Date Duration Status Seroquel 200 mg Orally Once a day 1 tablet 24h 30 Active RESULTS No Results PROCEDURES [...] 04/02/2012 Surgical History appendectomy age 10 at [facility] Surgical History cholecystectomy-[facility]. [facility] Gonzalez 2007 Surgical History coronary artery bypass graft LAD 02/2012 Surgical History heart cath x2 after bypass, pt has 5 stents Hospitalization History Chest pain, dizziness, renal insuff, heat cath showed CAD ([facility]) 01/03/2012 Hospitalization History CABG ([facility]) Dr. Banks 02/2012
--- OUTSIDE RECORDS SUMMARY | 2019-05-03 09:48 | XMS REPORT ---
Author Author BELEM FUENTES [facility] eClinicalWorks Address Unknown Phone Unavailable Care Team Providers Care Aerospace Mechanic Name Role Phone BELEM FUENTES CP Unavailable Allergies No Known Allergies Problems Problem Type Condition Code Onset Dates Condition Status Problem Chest wall pain R07.89 Active Problem Vertigo R42 Active Problem Chronic kidney disease N18.9 Active Problem Chronic airway obstruction, not elsewhere classified 496 Active Assessment Insomnia G47.00 Active Problem Anxiety state, unspecified 300.00 Active Problem Coronary atherosclerosis of unspecified type of vessel, [place] or graft 414.00 Active Medications Medication Code System Code Instructions Start Date End Date Status Dosage Seroquel [facility] [address]-84 200 MG Orally Once a day 1 tablet Results No Known Results Summary Purpose eClinicalWorks Submission
--- OUTSIDE RECORDS SUMMARY | 2019-05-03 09:48 | XMS REPORT ---
Author Author BELEM FUENTES Organization [facility] Address [address] [place] [address] Care Team Providers Care Ferry Terminal Agent Name Role Phone BELEM FUENTES Unavailable PROBLEMS Type Condition ICD9-CM Code [id number] Code Onset Dates Condition Status SNOMED Code Problem Mixed hyperlipidemia E78.2 Active 238871063 Problem Iron deficiency anemia, unspecified iron deficiency anemia type D50.9 Active 34228702 Problem Chronic kidney disease N18.9 Active 625320989 Problem Chest wall pain R07.89 Active 852333804 Problem Anemia, unspecified type D64.9 Active 046093185 Problem Vertigo R42 Active 829407276 ALLERGIES No Information SOCIAL HISTORY Never Assessed [...] 04/02/2012 Surgical History appendectomy age 10 at [facility] Surgical History cholecystectomy-Ft. Geovanny Gonzalez 2007 Surgical History coronary artery bypass graft LAD 02/2012 Surgical History heart cath x2 after bypass, pt has 5 stents Hospitalization History Chest pain, dizziness, renal insuff, heat cath showed CAD ([facility]) 01/03/2012 Hospitalization History CABG ([facility]) Dr. aBnks 02/2012
--- OUTSIDE RECORDS SUMMARY | 2019-05-03 09:48 | XMS REPORT ---
Author Author BELEM FUENTES Organization [facility] Address [address] [place] [address] Care Team Providers Care Parts Counterperson Name Role Phone BELEM FUENTES Unavailable PROBLEMS Type Condition ICD9-CM Code [id number] Code Onset Dates Condition Status SNOMED Code Problem Mixed hyperlipidemia E78.2 Active 850901436 Problem Iron deficiency anemia, unspecified iron deficiency anemia type D50.9 Active 43957854 Problem Chronic kidney disease N18.9 Active 781941524 Problem Chest wall pain R07.89 Active 772344124 Problem Anemia, unspecified type D64.9 Active 503424291 Problem Vertigo R42 Active 343617025 ALLERGIES No Information SOCIAL HISTORY Never Assessed PLAN OF CARE VITAL SIGNS MEDICATIONS Medication Instructions Dosage Frequency Start Date End Date Duration Status Hydrocodone-Acetaminophen 7.5-325 MG Orally, 5 times per day 2 tablet Nov, 30 days Active RESULTS No Results PROCEDURES [...] Surgical History appendectomy age 10 at [facility] Surgical History cholecystectomy-Ft. Geovanny Gonzalez 2007 Surgical History coronary artery bypass graft LAD 02/2012 Surgical History heart cath x2 after bypass, pt has 5 stents Hospitalization History Chest pain, dizziness, renal insuff, heat cath showed CAD ([facility]) 01/03/2012 Hospitalization History CABG ([facility]) Dr. Banks 02/2012
--- OUTSIDE RECORDS SUMMARY | 2019-05-03 09:48 | XMS REPORT ---
Author Author BELEM FUENTES Organization [facility] Address [address] [place] [address] Care Team Providers Care Water Supervisor Name Role Phone BELEM FUENTES Unavailable PROBLEMS Type Condition ICD9-CM Code QRH87-NL Code Onset Dates Condition Status SNOMED Code Problem Mixed hyperlipidemia E78.2 Active 472937963 Problem Iron deficiency anemia, unspecified iron deficiency anemia type D50.9 Active 46981248 Problem Chronic kidney disease N18.9 Active 712301630 Problem Chest wall pain R07.89 Active 435124302 Problem Anemia, unspecified type D64.9 Active 904221191 Problem Vertigo R42 Active 704729020 ALLERGIES No Information SOCIAL HISTORY Never Assessed PLAN OF CARE VITAL SIGNS MEDICATIONS Unknown [...]
--- OUTSIDE RECORDS SUMMARY | 2019-05-03 09:49 | XMS REPORT ---
Author Author BELEM FUENTES Organization [facility] Address [address] [place] [address] Care Team Providers Care Fabric Cutter Name Role Phone BELEM FUENTES Unavailable PROBLEMS Type Condition ICD9-CM Code [id number] Code Onset Dates Condition Status SNOMED Code Problem Chronic kidney disease N18.9 Active 227885473 Problem Chest wall pain R07.89 Active 967015292 Problem Chronic fatigue R53.82 Active 13481458 Problem Coronary artery disease involving [place] coronary artery of [place] heart without angina pectoris I25.10 Active [id number] Problem Anemia, unspecified type D64.9 Active 077487261 Problem Vertigo R42 Active 086471848 Problem Mixed hyperlipidemia E78.2 Active 334861775 Problem Iron deficiency anemia, unspecified iron deficiency anemia type D50.9 Active 03507138 ALLERGIES No Information ENCOUNTERS Encounter Location Date Diagnosis [place] [id number] [place] [address] Dec, [place] [id number] [place] [address] Nov, Chest wall pain R07.89 [place] [id number] [place] [address] Oct, Chest wall pain R07.89 [place] [id number] [place] [address] Sep, Chest wall pain R07.89 and Pleurodynia R07.81 [facility] [id number] [place] [address] Sep, [place] [id number] [place] [address] Sep, Chest wall pain R07.89 and Sore throat J02.9 [facility] [id number] [place] [address] Sep, [facility] [id number] [place] [address] Sep, Sore throat J02.9 and Acute nasopharyngitis J00 [facility] [id number] [place] [address] Sep, [facility] [id number] [place] [address] Aug, Chest wall pain R07.89 [place] [id number] [place] [address] Jul, Chest wall pain R07.89 [place] [id number] [place] [address] Jul, [place] [address] [address] Jul, Chest wall pain R07.89 [place] [id number] [place] [address] Jul, Chest wall pain R07.89 ; Chronic fatigue R53.82 ; Anemia, unspecified type D64.9 ; Vertigo R42 and Coronary artery disease involving [place] coronary artery of [place] heart without angina pectoris I25.10 [place] [id number] [place] [address] Jun, Chest wall pain R07.89 [facility] [id number] [place] [address] Apr, Chest wall pain R07.89 [facility] [id number] [place] [address] Apr, [facility] [id number] [place] [address] Apr, Dental abscess K04.7 [facility] [id number] [place] [address] Apr, [facility] [id number] [place] [address] Apr, Chest wall pain R07.89 [facility] [id number] [place] [address] Mar, Chest wall pain R07.89 [facility] [id number] [place] [address] Feb, Chest wall pain R07.89 ; Lateral epicondylitis of right elbow M77.11 and Mixed hyperlipidemia E78.2 [facility] [id number] [place] [address] Feb, Chest wall pain R07.89 [facility] [id number] [place] [address] January, [facility] [id number] [place] [address] January, Chest wall pain R07.89 [facility] [id number] [place] [address] Dec, Chest wall pain R07.89 [facility] [id number] [place] [address] Nov, [facility] [id number] [place] [address] Nov, Hypokalemia E87.6 [facility] [id number] [place] [address] Nov, Hypokalemia E87.6 and Iron deficiency anemia, unspecified iron deficiency anemia type D50.9 [facility] [id number] [place] [address] Nov, [facility] [id number] [place] [address] Nov, Nausea R11.0 and Hypovolemia E86.1 [facility] [id number] [place] [address] Nov, [facility] [id number] [place] [address] Nov, [facility] [id number] [place] [address] Nov, Chest wall pain R07.89 [facility] [id number] [place] [address] Nov, Bronchitis J40 [facility] [address] [address] 09 Oct, 2016 Chest wall pain R07.89 [facility] [id number] [place] [address] Sep, Chest wall pain R07.89 [facility] [id number] [place] [address] Aug, Chest wall pain R07.89 [facility] [id number] [place] [address] Aug, Chest pain on breathing R07.1 [facility] [id number] [place] [address] Jul, [facility] [id number] [place] [address] 07 Jun, 2016 [facility] [id number] [place] [address] 16 May, 2016 Chest wall pain R07.89 ; Iron deficiency anemia, unspecified iron deficiency anemia type D50.9 ; Chronic kidney disease N18.9 and Encounter for immunization Z23 [facility] [id number] [place] [address] 09 May, 2016 [facility] [id number] [place] [address] Apr, [facility] [id number] [place] [address] Mar, [facility] [id number] [place] [address] Mar, [facility] [id number] [place] [address] Feb, [facility] [address] [address] Feb, Iron deficiency anemia, unspecified iron deficiency anemia type D50.9 [facility] [address] [address] Feb, Dehydration E86.0 ; Diarrhea, unspecified type R19.7 ; Dizziness R42 and Other specified hypotension I95.89 [place] [address] [address] Feb, Anemia, unspecified type D64.9 [facility] [id number] [place] [address] January, Anemia, unspecified type D64.9 [place] [id number] [place] [address] January, Paresthesia R20.2 [place] [id number] [place] [address] January, Chest wall pain R07.89 [facility] [id number] [place] [address] Dec, Insomnia G47.00 [place] [address] [address] Dec, Chest pain on breathing R07.1 [facility] [id number] [place] [address] Nov, Chest pain on breathing R07.1 [facility] [address] [place] [address] Oct, [facility] [id number] [place] [address] Oct, [facility] [id number] [place] [address] Oct, Low back pain M54.5 and Chest wall pain R07.89 [facility] [address] [address] Oct, Pleurodynia R07.81 [facility] [id number] [place] [address] Sep, Pleurodynia R07.81 and Other nerve root and plexus disorders G54.8 [facility] [id number] [place] [address] Aug, Chronic kidney disease N18.9 ; Encounter for immunization Z23 ; Chest wall pain R07.89 ; Urinary frequency R35.0 and Vertigo R42 [facility] [id number] [place] [address] Aug, [facility] [id number] [place] [address] Jul, [facility] [id number] [place] [address] Jul, [facility] [id number] [place] [address] Jun, [facility] [id number] [place] [address] Jun, [facility] [id number] [place] [address] May, [facility] [id number] [place] [address] May, [facility] [id number] [place] [address] May, [facility] [address] [id number], [place] [address] May, Coronary atherosclerosis of unspecified type of vessel, [place] or graft 414.00 [facility] [address] [id number] [place] [address] Apr, [facility] [address] [id number], [place] [address] Apr, [facility] [address] [id number], [place] [address] Apr, [facility] [address] [id number] [place] [address] Apr, [facility] [address] [id number], [place] [address] Apr, [facility] [address] [id number], [place] [address] Apr, Coronary atherosclerosis of unspecified type of vessel, [place] or graft 414.00 and Left-sided chest wall pain 786.52 [facility] [address] [id number], [place] [address] Mar, [facility] [address] [id number], [place] [address] Mar, [facility] [address] [id number], [place] [address] Feb, [facility] [address] [id number], [place] [address] Feb, [facility] [address] [id number], [place] [address] January, [facility] [address] [id number], [place] [address] January, [facility] [address] [id number], [place] [address] January, [facility] [address] [facility] [id number] [place] [address] January, Neuropathic pain of chest 353.8 [facility] [place] [facility] [address] [id number] [place] [address] 14 Dec, 2014 [facility] [place] [facility] [address] [facility] [id number] [place] [address] Dec, [facility] [place] [facility] [address] [facility] [id number] [place] [address] Nov, [facility] [place] [facility] [address] [facility] [id number] [place] [address] Nov, [facility] [place] [facility] [address] [facility] [id number] [place] [address] Nov, [facility] [place] [facility] [id number] [place] [address] Nov, [facility] [place] [facility] [address] [facility] [id number], [place] [address] Nov, [facility] [place] [facility] [id number] [place] [address] Nov, [facility] [place] [facility] [id number] [place] [address] Oct, [facility] [place] [facility] [address] [id number], [place] [address] Oct, [facility] [place] [facility] [address] [facility] [id number], [place] [address] Oct, [facility] [place] [facility] [address] [facility] [id number] [place] [address] Oct, [facility] [place] [facility] [address] [facility] [id number], [place] [address] Oct, [facility] [place] [facility] [address] [facility] [id number] [place] [address] Oct, [facility] [place] [facility] [address] [id number] [place] [address] Sep, [facility] [place] [facility] [address] [id number] [place] [address] Sep, [facility] [place] [facility] [address] [id number] [place] [address] Sep, [facility] [place] [facility] [address] [id number] [place] [address] Sep, [facility] [place] [facility] [address] [id number] [place] [address] Aug, [facility] [place] [facility] [address] [id number] [place] [address] Aug, [facility] [place] [facility] [address] [id number] [place] [address] Aug, [facility] [place] [facility] [address] [id number] [place] [address] Aug, [facility] [place] [facility] [address] [id number] [place] [address] Aug, [facility] [place] [facility] [address] [id number] [place] [address] Aug, [facility] [place] [facility] [address] [id number] [place] [address] Aug, [facility] [place] [facility] [address] [id number] [place] [address] Aug, [facility] [place] [facility] [address] [id number] [place] [address] Aug, [facility] [place] [facility] [address] [id number] [place] [address] Aug, [facility] [place] [facility] [address] [id number] [place] [address] Jul, [facility] [place] [facility] [address] [id number] [place] [address] Jul, [facility] [place] [facility] [address] [id number] [place] [address] Jul, [facility] [place] [facility] [address] [id number] [place] [address] Jul, [facility] [place] [facility] [address] [id number] [place] [address] Jun, [facility] [place] [facility] [address] [id number] [place] [address] Jun, [facility] [place] [facility] [address] [id number] [place] [address] Jun, [facility] [place] [facility] [address] [id number] [place] [address] Jun, [facility] [place] [facility] [address] [id number] [place] [address] May, [facility] [place] [facility] [address] [id number] [place] [address] May, [facility] [place] [facility] [address] [id number] [place] [address] May, [facility] [place] [facility] [address] [id number] [place] [address] May, [facility] [place] [facility] [address] [id number], [place] [address] Apr, [facility] [place] [facility] [address] [id number], [place] [address] Apr, [facility] [place] [facility] [address] [id number] [place] [address] Feb, [facility] [place] [facility] [address] [id number], [place] [address] January, [facility] [place] [facility] [address] [id number] [place] [address] January, [facility] [place] [facility] [address] [id number] [place] [address] January, [facility] [address] [id number] [place] [address] January, [facility] [place] [facility] [address] [id number] [place] [address] January, [facility] [place] [facility] [address] [id number] [place] [address] January, [facility] [place] [facility] [address] [id number] [place] [address] Dec, [facility] [place] [facility] [address] [id number] [place] [address] Dec, [facility] [place] [facility] [address] [id number] [place] [address] Dec, [facility] [place] [facility] [address] [id number] [place] [address] Dec, [facility] [place] [facility] [address] [id number] [place] [address] Dec, [facility] [place] [facility] [address] [id number] [place] [address] Dec, [facility] [place] [facility] [address] [id number] [place] [address] Dec, [facility] [place] [facility] [address] [id number] [place] [address] Dec, [facility] [place] [facility] [address] [id number] [place] [address] Nov, [facility] [place] [facility] [address] [id number] [place] [address] Nov, [facility] [place] [facility] [address] [id number] [place] [address] Nov, [facility] [place] [facility] [address] [id number] [place] [address] Nov, [facility] [place] [facility] [address] [id number] [place] [address] Nov, [facility] [place] [facility] [address] [id number] [place] [address] Nov, [facility] [place] [facility] [address] [id number] [place] [address] Nov, [facility] [place] [facility] [address] [id number] [place] [address] Oct, [facility] [place] [facility] [address] [id number] [place] [address] Oct, [facility] [place] [facility] [address] [id number] [place] [address] Oct, [facility] [place] [facility] [address] [id number] [place] [address] Oct, [facility] [place] [facility] [address] [id number] [place] [address] Sep, [facility] [place] [facility] [address] [id number] [place] [address] Sep, [facility] [place] [facility] [address] [id number] [place] [address] Sep, [facility] [place] [facility] [address] [id number] [place] [address] Sep, [facility] [place] [facility] [address] [id number] [place] [address] Aug, [facility] [place] [facility] [address] [id number] [place] [address] Aug, [facility] [place] [facility] [address] [id number] [place] [address] Jul, [facility] [place] [facility] [address] [id number] [place] [address] Jul, [facility] [place] [facility] [address] [id number] [place] [address] Jun, [facility] [address] [id number] [place] [address] Jun, [facility] [place] [facility] [address] [id number] [place] [address] Jun, [facility] [address] [id number] [place] [address] May, [facility] [place] [facility] [address] [id number] [place] [address] Apr, [facility] [address] [id number] [place] [address] Apr, [facility] [place] [facility] [address] [id number] [place] [address] Mar, [facility] [address] [id number] [place] [address] Feb, [facility] [place] [facility] [address] [id number] [place] [address] Feb, [facility] [address] [id number] [place] [address] January, [facility] [place] [facility] [address] [facility] [id number] [place] [address] January, [facility] [address] [id number] [place] [address] Dec, [facility] [place] [facility] [address] [id number] [place] [address] Dec, [facility] [place] [facility] [address] [id number] [place] [address] Dec, [facility] [place] [facility] [address] [id number] [place] [address] Dec, [facility] [place] [facility] [address] [id number] [place] [address] Nov, [facility] [place] [facility] [address] [id number] [place] [address] Nov, [facility] [address] [id number] [place] [address] Oct, [facility] [place] [facility] [address] [id number] [place] [address] Oct, [facility] [place] [facility] [address] [id number] [place] [address] Oct, [facility] [place] [facility] [address] [id number] [place] [address] Sep, [facility] [place] [facility] [address] [id number] [place] [address] Sep, [facility] [address] [id number] [place] [address] Sep, [facility] [address] [id number] [place] [address] Sep, [facility] [address] [id number] [place] [address] Sep, [facility] [address] [id number] [place] [address] Aug, [facility] [address] [id number] [place] [address] Aug, [facility] [place] [facility] [address] [id number] [place] [address] Aug, [facility] [place] [facility] [address] [id number] [place] [address] Aug, [facility] [place] [facility] [address] [id number] [place] [address] Jul, [facility] [place] [facility] [address] [id number] [place] [address] Jul, [facility] [place] [facility] [address] [id number] [place] [address] Jul, [facility] [place] [facility] [address] [id number] [place] [address] Jul, [facility] [place] [facility] [address] [id number] [place] [address] Jun, [facility] [place] [facility] [address] [id number] [place] [address] Jun, [facility] [place] [facility] [address] [id number] [place] [address] Jun, [facility] [place] [facility] [address] [id number] [place] [address] Jun, [facility] [place] [facility] [address] [id number] [place] [address] Jun, [facility] [place] [facility] [address] [id number] [place] [address] 24 May, 2012 [facility] [place] [facility] [address] [id number] [place] [address] 13 May, 2012 [facility] [place] [facility] [address] [id number] [place] [address] 12 May, 2012 [facility] [place] [facility] [address] [id number] [place] [address] 11 May, 2012 [facility] [place] [facility] [address] [id number] [place] [address] 10 May, 2012 [facility] [place] [facility] [address] [id number], [place] [address] 06 May, 2012 [facility] [place] [facility] [address] [id number] [place] [address] 05 May, 2012 [facility] [place] [facility] [address] [facility] [id number] [place] [address] 30 Apr, 2012 [facility] [place] [facility] [address] [id number] [place] [address] Apr, [facility] [place] [facility] [address] [id number] [place] [address] Apr, [facility] [address] [id number] [place] [address] Apr, [facility] [address] [id number] [place] [address] Apr, [facility] [address] [id number] [place] [address] Apr, [facility] [address] [id number] [place] [address] Apr, [facility] [address] [id number] [place] [address] Apr, [facility] [address] [id number] [place] [address] Mar, [facility] [address] [id number] [place] [address] Mar, [facility] [address] [id number] [place] [address] Mar, [facility] [address] [id number] [place] [address] Feb, [facility] [address] [address] [id number] [place] [address] January, [facility] [place] [facility] [address] [id number] [place] [address] January, [facility] [address] [id number] [place] [address] January, [facility] [place] [facility] [address] [id number] [place] [address] Dec, [facility] [place] [facility] [address] [id number] [place] [address] Dec, [facility] [place] [facility] [address] [id number] [place] [address] Dec, [facility] [address] [facility] [id number] [place] [address] Dec, [facility] [address] [facility] [id number] [place] [address] Dec, [facility] [address] [facility] [id number] [place] [address] Dec, IMMUNIZATIONS No Known Immunizations SOCIAL HISTORY Never Assessed REASON FOR VISIT Hydrocodone- 05/01 PLAN OF CARE VITAL SIGNS MEDICATIONS Medication Instructions Dosage Frequency Start Date End Date Duration Status Hydrocodone-Acetaminophen 7.5-325 MG Orally, 5 times per day 2 tablet Apr, 30 days Active RESULTS No Results PROCEDURES [...] dizziness, renal insuff, heat cath showed CAD ([facility]) 01/03/2012 Hospitalization History CABG ([facility]) Dr. Banks 02/2012
--- OUTSIDE RECORDS SUMMARY | 2019-05-03 09:49 | XMS REPORT ---
Author Author BELEM FUENTES [facility] Address [address] [place] [address] Care Team Providers Care Chief Medical Officer Name Role Phone BELEM FUENTES Unavailable PROBLEMS Type Condition ICD9-CM Code JEI73-QC Code Onset Dates Condition Status SNOMED Code Problem Chronic kidney disease N18.9 Active 440717605 Problem Chest wall pain R07.89 Active 589016960 Problem Chronic fatigue R53.82 Active 91517240 Problem Coronary artery disease involving northway coronary artery of northway heart without angina pectoris I25.10 Active 7303980662117 Problem Anemia, unspecified type D64.9 Active 380654298 Problem Vertigo R42 Active 916895551 Problem Mixed hyperlipidemia E78.2 Active 059419297 Problem Iron deficiency anemia, unspecified iron deficiency anemia type D50.9 Active 31566576 ALLERGIES Substance Reaction Event Type Date Status Celebrex hot flashes Drug Allergy Apr, Active ENCOUNTERS Encounter Location Date Diagnosis [place] [id number] [place] [address] Dec, Chest wall pain R07.89 ; Coronary artery disease involving northway coronary artery of northway heart without angina pectoris I25.10 and Vertigo R42 [place] [id number] [place] [address] Dec, [facility] [id number] [place] [address] Nov, Chest wall pain R07.89 [place] [address] [place] [id number] [place] [address] Oct, Chest wall pain R07.89 [facility] [address] [place] [id number] [place] [address] Sep, Chest wall pain R07.89 and Pleurodynia R07.81 [facility] [address] [place] [id number] [place] [address] Sep, [facility] [address] [place] [id number] [place] [address] Sep, Chest wall pain R07.89 and Sore throat J02.9 [facility] [address] [address] Sep, [facility] [address] [place] [id number] [place] [address] Sep, Sore throat J02.9 and Acute nasopharyngitis J00 [place] [address] [place] [id number] [place] [address] Sep, [facility] [address] [place] [id number] [place] [address] Aug, Chest wall pain R07.89 [facility] [address] [place] [id number] [place] [address] Jul, Chest wall pain R07.89 [place] [address] [place] [id number] [place] [address] Jul, [facility] [address] [place] [id number] [place] [address] Jul, Chest wall pain R07.89 [facility] [address] [place] [id number] [place] [address] Jul, Chest wall pain R07.89 ; Chronic fatigue R53.82 ; Anemia, unspecified type D64.9 ; Vertigo R42 and Coronary artery disease involving northway coronary artery of northway heart without angina pectoris I25.10 [facility] [address] [place] [id number] [place] [address] Jun, Chest wall pain R07.89 [facility] [address] [place] [id number] [place] [address] Apr, Chest wall pain R07.89 [facility] [address] [address] Apr, [facility] [address] [place] [id number] [place] [address] Apr, Dental abscess K04.7 [facility] [address] [place] [id number] [place] [address] Apr, [facility] [address] [place] [id number] [place] [address] Apr, Chest wall pain R07.89 [facility] [address] [place] [id number] [place] [address] Mar, Chest wall pain R07.89 [facility] [address] [place] [id number] [place] [address] Feb, Chest wall pain R07.89 ; Lateral epicondylitis of right elbow M77.11 and Mixed hyperlipidemia E78.2 [facility] [address] [place] [id number] [place] [address] Feb, Chest wall pain R07.89 [facility] [address] [place] [id number] [place] [address] January, [facility] [address] [place] [id number] [place] [address] January, Chest wall pain R07.89 [facility] [address] [place] [id number] [place] [address] Dec, Chest wall pain R07.89 [facility] [address] [address] Nov, [facility] [address] [place] [id number] [place] [address] Nov, Hypokalemia E87.6 [facility] [address] [place] [id number] [place] [address] Nov, Hypokalemia E87.6 and Iron deficiency anemia, unspecified iron deficiency anemia type D50.9 [facility] [address] [place] [id number] [place] [address] Nov, [facility] [address] [place] [id number] [place] [address] Nov, Nausea R11.0 and Hypovolemia E86.1 [facility] [address] [place] [id number] [place] [address] Nov, [facility] [address] [place] [id number] [place] [address] Nov, [facility] [address] [place] [id number] [place] [address] Nov, Chest wall pain R07.89 [place] [address] [place] [id number] [place] [address] Nov, Bronchitis J40 [facility] [address] [place] [id number] [place] [address] 09 Oct, 2016 Chest wall pain R07.89 [place] [address] [place] [id number] [place] [address] Sep, Chest wall pain R07.89 [facility] [address] [place] [id number] [place] [address] Aug, Chest wall pain R07.89 [facility] [address] [place] [id number] [place] [address] Aug, Chest pain on breathing R07.1 [facility] [address] [place] [id number] [place] [address] Jul, [facility] [address] [place] [id number] [place] [address] 07 Jun, 2016 [facility] [address] [place] [id number] [place] [address] 16 May, 2016 Chest wall pain R07.89 ; Iron deficiency anemia, unspecified iron deficiency anemia type D50.9 ; Chronic kidney disease N18.9 and Encounter for immunization Z23 [facility] [address] [place] [id number] [place] [address] May, [facility] [address] [place] [id number] [place] [address] Apr, [place] [address] [address] Mar, [facility] [address] [address] Mar, [place] [address] [address] Feb, [place] [address] [address] Feb, Iron deficiency anemia, unspecified iron deficiency anemia type D50.9 [facility] [address] [place] [id number] [place] [address] Feb, Dehydration E86.0 ; Diarrhea, unspecified type R19.7 ; Dizziness R42 and Other specified hypotension I95.89 [place] [address] [place] [id number] [place] [address] Feb, Anemia, unspecified type D64.9 [place] [address] [place] [id number] [place] [address] January, Anemia, unspecified type D64.9 [place] [address] [place] [id number] [place] [address] January, Paresthesia R20.2 [place] [address] [address] January, Chest wall pain R07.89 [place] [address] [place] [id number] [place] [address] Dec, Insomnia G47.00 [place] [address] [place] [address] Dec, Chest pain on breathing R07.1 [facility] [address] [address] Nov, Chest pain on breathing R07.1 [facility] [address] [place] [id number] [place] [address] Oct, [facility] [address] [address] Oct, [facility] [address] [place] [id number] [place] [address] Oct, Low back pain M54.5 and Chest wall pain R07.89 [facility] [address] [place] [id number] [place] [address] Oct, Pleurodynia R07.81 [facility] [address] [address] Sep, Pleurodynia R07.81 and Other nerve root and plexus disorders G54.8 [facility] [address] [place] [id number] [place] [address] Aug, Chronic kidney disease N18.9 ; Encounter for immunization Z23 ; Chest wall pain R07.89 ; Urinary frequency R35.0 and Vertigo R42 [facility] [address] [place] [id number] [place] [address] Aug, [facility] [address] [place] [id number] [place] [address] Jul, [facility] [address] [place] [id number] [place] [address] Jul, [facility] [address] [place] [id number] [place] [address] Jun, [facility] [address] [place] [id number] [place] [address] Jun, [facility] [address] [id number] [address] May, [facility] [address] [id number], [place] [address] May, [facility] [address] [id number], [place] [address] May, [facility] [address] [id number], [place] [address] May, Coronary atherosclerosis of unspecified type of vessel, northway or graft 414.00 [facility] [address] [id number], [place] [address] Apr, [facility] [address] [id number], [place] [address] Apr, [facility] [address] [id number], [place] [address] Apr, [facility] [address] [id number], [place] [address] Apr, [facility] [address] [id number], [place] [address] Apr, [facility] [address] [facility] [id number], [place] [address] Apr, Coronary atherosclerosis of unspecified type of vessel, northway or graft 414.00 and Left-sided chest wall pain 786.52 [facility] [address] [id number], [place] [address] Mar, [facility] [address] [id number], [place] [address] Mar, [facility] [address] [facility] [id number], [place] [address] Feb, [facility] [address] [facility] [id number], [place] [address] Feb, [facility] [address] [id number] [place] [address] January, [facility] [address] [id number] [place] [address] January, [facility] [place] [facility] [address] [id number] [place] [address] January, [facility] [address] [facility] [id number] [place] [address] January, Neuropathic pain of chest 353.8 [facility] [place] [facility] [address] [id number] [place] [address] Dec, [facility] [place] [facility] [address] [id number] [place] [address] Dec, [facility] [address] [facility] [id number] [place] [address] Nov, [facility] [place] [facility] [address] [place] [id number] [place] [address] Nov, [facility] [address] [id number] [place] [address] Nov, [facility] [place] [facility] [address] [facility] [id number] [place] [address] Nov, [facility] [place] [facility] [address] [facility] [id number] [place] [address] Nov, [facility] [place] [facility] [address] [facility] [id number] [place] [address] Nov, [facility] [place] [facility] [address] [id number] [place] [address] Oct, [facility] [place] [facility] [address] [id number] [place] [address] Oct, [facility] [place] [facility] [address] [facility] [id number] [place] [address] Oct, [facility] [place] [facility] [address] [facility] [id number] [place] [address] Oct, [facility] [place] [facility] [address] [id number] [place] [address] Oct, [facility] [place] [facility] [address] [id number] [place] [address] Oct, [facility] [place] [facility] [address] [facility] [id number] [place] [address] Sep, [facility] [place] [facility] [address] [id number] [place] [address] Sep, [facility] [place] [facility] [address] [id number] [place] [address] Sep, [facility] [place] [facility] [address] [id number] [place] [address] Sep, [facility] [place] [facility] [address] [id number] [place] [address] Aug, [facility] [place] [facility] [address] [id number] [place] [address] Aug, [facility] [place] [facility] [address] [id number] [place] [address] Aug, [facility] [place] [facility] [address] [id number] [place] [address] Aug, [facility] [place] [facility] [address] [id number] [place] [address] Aug, [facility] [place] [facility] [address] [id number] [place] [address] Aug, [facility] [place] [facility] [address] [id number] [place] [address] Aug, [facility] [place] [facility] [address] [id number] [place] [address] Aug, [facility] [place] [facility] [address] [facility] [id number] [place] [address] Aug, [facility] [place] [facility] [address] [id number] [place] [address] Aug, [facility] [place] [facility] [address] [id number] [place] [address] Jul, [facility] [place] [facility] [address] [id number] [place] [address] Jul, [facility] [place] [facility] [address] [id number] [place] [address] Jul, [facility] [place] [facility] [address] [id number] [place] [address] Jul, [facility] [place] [facility] [address] [id number] [place] [address] Jun, [facility] [place] [facility] [address] [id number] [place] [address] Jun, [facility] [place] [facility] [address] [id number] [place] [address] Jun, [facility] [place] [facility] [address] [id number] [place] [address] Jun, [facility] [place] [facility] [address] [id number] [place] [address] May, [facility] [place] [facility] [address] [id number] [place] [address] May, [facility] [place] [facility] [address] [id number] [place] [address] May, [facility] [place] [facility] [address] [id number] [place] [address] May, [facility] [place] [facility] [address] [id number] [place] [address] Apr, [facility] [place] [facility] [address] [id number] [place] [address] Apr, [facility] [place] [facility] [address] [id number] [place] [address] Feb, [facility] [address] [id number] [place] [address] January, [facility] [place] [facility] [address] [id number] [place] [address] January, [facility] [place] [facility] [address] [id number] [place] [address] January, [facility] [place] [facility] [address] [id number] [place] [address] January, [facility] [place] [facility] [address] [id number] [place] [address] January, [facility] [place] [facility] [address] [id number] [place] [address] January, [facility] [place] [facility] [address] [id number] [place] [address] Dec, [facility] [place] [facility] [address] [id number] [place] [address] Dec, [facility] [place] [facility] [address] [id number] [place] [address] Dec, [facility] [place] [facility] [address] [id number] [place] [address] Dec, [facility] [place] [facility] [address] [id number] [place] [address] Dec, [facility] [place] [facility] [address] [id number] [place] [address] Dec, [facility] [place] [facility] [address] [id number] [place] [address] Dec, [facility] [place] [facility] [address] [id number] [place] [address] Dec, [facility] [place] [facility] [address] [id number] [place] [address] Nov, [facility] [place] [facility] [address] [id number] [place] [address] Nov, [facility] [place] [facility] [address] [id number] [place] [address] Nov, [facility] [place] [facility] [address] [id number] [place] [address] Nov, [facility] [place] [facility] [address] [id number] [place] [address] Nov, [facility] [place] [facility] [address] [id number] [place] [address] Nov, [facility] [place] [facility] [address] [id number] [place] [address] Nov, [facility] [place] [facility] [address] [id number] [place] [address] Oct, [facility] [place] [facility] [address] [id number] [place] [address] Oct, [facility] [place] [facility] [address] [id number] [place] [address] Oct, [facility] [place] [facility] [address] [id number] [place] [address] 07 Oct, 2013 [facility] [place] [facility] [address] [id number] [place] [address] Sep, [facility] [place] [facility] [address] [id number] [place] [address] Sep, [facility] [place] [facility] [address] [id number] [place] [address] Sep, [facility] [place] [facility] [address] [id number] [place] [address] Sep, [facility] [place] [facility] [address] [id number] [place] [address] Aug, [facility] [place] [facility] [address] [id number] [place] [address] Aug, [facility] [place] [facility] [address] [id number] [place] [address] Jul, [facility] [place] [facility] [address] [id number] [place] [address] Jul, [facility] [place] [facility] [address] [id number] [place] [address] Jun, [facility] [place] [facility] [address] [id number] [place] [address] Jun, [facility] [place] [facility] [address] [id number] [place] [address] Jun, [facility] [place] [facility] [address] [id number] [place] [address] May, [facility] [place] [facility] [address] [id number] [place] [address] Apr, [facility] [place] [facility] [address] [id number] [place] [address] Apr, [facility] [place] [facility] [address] [id number] [place] [address] Mar, [facility] [place] [facility] [address] [id number] [place] [address] Feb, [facility] [place] [facility] [address] [id number] [place] [address] Feb, [facility] [place] [facility] [address] [id number] [place] [address] January, [facility] [place] [facility] [address] [id number] [place] [address] January, [facility] [place] [facility] [address] [id number] [place] [address] Dec, [facility] [place] [facility] [address] [id number] [place] [address] Dec, [facility] [place] [facility] [address] [id number] [place] [address] Dec, [facility] [address] [id number] [place] [address] Dec, [facility] [address] [id number] [place] [address] Nov, [facility] [address] [id number] [place] [address] Nov, [facility] [address] [id number] [place] [address] Oct, [facility] [address] [id number] [place] [address] Oct, [facility] [address] [id number] [place] [address] Oct, [facility] [address] [id number] [place] [address] Sep, [facility] [address] [id number] [place] [address] Sep, [facility] [address] [id number] [place] [address] Sep, [facility] [address] [id number] [place] [address] Sep, [facility] [address] [id number] [place] [address] Sep, [facility] [place] [facility] [address] [id number] [place] [address] Aug, [facility] [place] [facility] [address] [id number] [place] [address] Aug, [facility] [place] [facility] [address] [id number] [place] [address] Aug, [facility] [place] [facility] [address] [id number] [place] [address] Aug, [facility] [place] [facility] [address] [id number] [place] [address] Jul, [facility] [place] [facility] [address] [id number] [place] [address] Jul, [facility] [place] [facility] [address] [id number] [place] [address] Jul, [facility] [place] [facility] [address] [id number] [place] [address] Jul, [facility] [place] [facility] [address] [id number] [place] [address] Jun, [facility] [place] [facility] [address] [id number] [place] [address] Jun, [facility] [place] [facility] [address] [id number] [place] [address] Jun, [facility] [place] [facility] [address] [id number] [place] [address] Jun, [facility] [place] [facility] [address] [id number] [place] [address] Jun, [facility] [place] [facility] [address] [id number] [place] [address] 24 May, 2012 [facility] [place] [facility] [address] [id number] [place] [address] 13 Sep2011 [facility] [place] [facility] [address] [id number] [place] [address] 12 Sep2011 [facility] [place] [facility] [address] [id number] [place] [address] 11 Sep2011 [facility] [place] [facility] [address] [id number] [place] [address] 10 May, 2012 [facility] [place] [facility] [address] [id number] [place] [address] 06 Sep2011 [facility] [place] [facility] [address] [id number] [place] [address] May, [facility] [place] [facility] [address] [id number] [place] [address] Apr, [facility] [place] [facility] [address] [id number] [place] [address] Apr, [facility] [place] [facility] [address] [id number] [place] [address] Apr, [facility] [place] [facility] [address] [id number] [place] [address] Apr, [facility] [place] [facility] [address] [id number] [place] [address] Apr, [facility] [place] [facility] [address] [id number] [place] [address] Apr, [facility] [place] [facility] [address] [id number] [place] [address] Apr, [facility] [place] [facility] [address] [id number] [place] [address] Apr, [facility] [place] [facility] [address] [id number] [place] [address] Mar, [facility] [place] [facility] [address] [id number] [place] [address] Mar, [facility] [place] [facility] [address] [id number] [place] [address] Mar, [facility] [place] [facility] [address] [id number] [place] [address] Feb, [facility] [place] [facility] [address] [id number] [place] [address] January, [facility] [place] [facility] [address] [id number] [place] [address] January, [facility] [place] [facility] [address] [id number] [place] [address] January, [facility] [place] [facility] [id number], [place] [address] Dec, [facility] [id number] [address] Dec, [facility] [id number], [place] [address] Dec, [facility] [id number] [address] Dec, [facility] [id number] [address] Dec, [facility] [id number] [address] Dec, IMMUNIZATIONS No Known Immunizations SOCIAL HISTORY Never Assessed REASON FOR VISIT Tooth pain PLAN OF CARE Activity Details Follow Up Reg appt Reason: VITAL SIGNS Height 70 in 2017-05-23 Weight 199 lbs 2017-05-23 Temperature 98.0 degrees Fahrenheit 2017-05-23 Heart Rate 80 bpm 2017-05-23 Respiratory Rate 16 2017-05-23 BMI 28.55 kg/m2 2017-05-23 Blood pressure systolic 138 mmHg 2017-05-23 Blood pressure diastolic 72 mmHg 2017-05-23 MEDICATIONS Medication Instructions Dosage Frequency Start Date End Date Duration Status Multivitamin 1 Tablet by Oral route 1 time per day Sep, Active Seroquel 200 MG Orally Once a day 1 tablet 24h 30 Active Hydrocodone-Acetaminophen 7.5-325 MG Orally, 5 times per day 2 tablet Apr, 30 days Active Lyrica 50 MG TAKE ONE CAPSULE BY MOUTH THREE TIMES DAILY FOR FIBROMYALGIA OR IDIOAPATHIC NEUROPATHY 90 Active Magnesium 300 MG Orally Once a day 1 capsule with a meal 24h Active Simvastatin 40 mg Orally Once a day 1 tablet 24h 30 Active Temazepam 30 MG TAKE ONE CAPSULE BY MOUTH AT BEDTIME NEEDED 30 Active Fish Oil Concentrate 1000 mg 1 Capsule by Oral route 2 times per day Sep, Active Amoxicillin 500 mg Orally 3 times a day 1 capsule 8h Apr, May, 10 day(s) Active Tennis Elbow Strap/Support Pad - to wear on the right elbow 24h Feb, Active Aspirin 81 mg take 1 tablet (81 mg) by oral route once daily Nov, Active Polysaccharide Iron Complex 150 MG Orally Once a day 1 capsule 24h Nov, 30 day(s) Active RESULTS No Results PROCEDURES Procedure Date Ordered Result Body Site [facility] ESTABLISHED PATIENT May 23, 2017 INSTRUCTIONS MEDICATIONS ADMINISTERED No Known Medications [...] Surgical History appendectomy age 10 at [facility] Surgical History cholecystectomy-[facility] [facility] 2007 Surgical History coronary artery bypass graft LAD 02/2012 Surgical History heart cath x2 after bypass, pt has 5 stents Hospitalization History Chest pain, dizziness, renal insuff, heat cath showed CAD ([facility]) 01/03/2012 Hospitalization History CABG ([facility]) Dr. Banks 02/2012
--- OUTSIDE RECORDS SUMMARY | 2019-05-03 09:49 | XMS REPORT ---
Author Author BELEM FUENTES Organization [employer] Address Unknown Phone Unavailable Care Team Providers Care Commercial Relationship Manager Name Role Phone BELEM FUENTES CP Unavailable Allergies No Known Allergies Problems Problem Type Condition Code Onset Dates Condition Status Problem Coronary atherosclerosis of unspecified type of vessel, [place] or graft 414.00 Active Problem Dizziness and giddiness 780.4 Active Problem Anxiety state, unspecified 300.00 Active Problem Chronic airway obstruction, not elsewhere classified 496 Active Problem Painful respiration 786.52 Active Medications Medication Code System Code Instructions Start Date End Date Status Dosage Hydrocodone-Acetaminophen [facility] [address]-28 7.5-325 MG Orally every 6 hrs December 10, 2014 1-2 tablet as needed Results No Known Results Summary Purpose [employer] Submission
--- OUTSIDE RECORDS SUMMARY | 2019-05-03 09:49 | XMS REPORT ---
Author Author BELEM FUENTES Organization [facility] Address [address] [place] [address] Care Team Providers Care Senior Telecommunications Consultant Name Role Phone BELEM FUENTES Unavailable PROBLEMS Type Condition ICD9-CM Code IUO23-IA Code Onset Dates Condition Status SNOMED Code Problem Mixed hyperlipidemia E78.2 Active 806382055 Problem Iron deficiency anemia, unspecified iron deficiency anemia type D50.9 Active 89852555 Problem Chronic kidney disease N18.9 Active 101486483 Problem Chest wall pain R07.89 Active 488070289 Problem Anemia, unspecified type D64.9 Active 420811577 Problem Vertigo R42 Active 258409678 ALLERGIES No Information SOCIAL HISTORY Never Assessed PLAN OF CARE VITAL SIGNS MEDICATIONS Medication Instructions Dosage Frequency Start Date End Date Duration Status Polysaccharide Iron Complex 150 MG Orally Once a day 1 capsule 24h Nov, 30 day(s) Active RESULTS No Results PROCEDURES No Known [...] 04/02/2012 Surgical History appendectomy age 10 at [facility] Surgical History cholecystectomy-[employer] [facility] 2007 Surgical History coronary artery bypass graft LAD 02/2012 Surgical History heart cath x2 after bypass, pt has 5 stents Hospitalization History Chest pain, dizziness, renal insuff, heat cath showed CAD ([facility]) 01/03/2012 Hospitalization History CABG ([facility]) Dr. Banks 02/2012
--- OUTSIDE RECORDS SUMMARY | 2019-05-03 09:50 | XMS REPORT ---
Author Author BELEM FUENTES Organization [employer] Address Unknown Phone Unavailable Care Team Providers Care Health Benefits Specialist Name Role Phone BELEM FUENTES CP Unavailable Allergies No Known Allergies Problems Problem Type Condition ICD-9 Code Onset Dates Condition Status Problem Coronary atherosclerosis of unspecified type of vessel, ely [place] or graft 414.00 Active Problem Dizziness and giddiness 780.4 Active Problem Anxiety state, unspecified 300.00 Active Problem Chronic airway obstruction, not elsewhere classified 496 Active Problem Painful respiration 786.52 Active Medications Medication Code System Code Instructions Start Date End Date Status Dosage Hydrocodone-Acetaminophen [facility] [address]-43 7.5-325 MG Orally every 6 hrs December 10, 2014 1-2 tablet as needed Results No Known Results Summary Purpose [employer] Submission
--- OUTSIDE RECORDS SUMMARY | 2019-05-03 09:50 | XMS REPORT ---
Author Author BELEM FUENTES Organization [employer] Address Unknown Phone Unavailable Care Team Providers Care Baby Sitter Name Role Phone BELEM FUENTES CP Unavailable Allergies No Known Allergies Problems Problem Type Condition Code Onset Dates Condition Status Problem Anemia, unspecified type D64.9 Active Problem Chronic kidney disease N18.9 Active Problem Iron deficiency anemia, unspecified iron deficiency anemia type D50.9 Active Problem Chest wall pain R07.89 Active Problem Vertigo R42 Active Medications Medication Code System Code Instructions Start Date End Date Status Dosage Hydrocodone-Acetaminophen [facility] [address]-68 7.5-325 MG Orally 5 times per day December 10, 2014 2 tablet Results No Known Results Summary Purpose [employer] Submission
--- OUTSIDE RECORDS SUMMARY | 2019-05-03 09:50 | XMS REPORT ---
Author Author XIOMARA HERNANDEZ [facility] Address [address] [place] [address] Care Team Providers Care Parts Room Associate Name Role Phone XIOMARA HERNANDEZ Unavailable PROBLEMS Type Condition ICD9-CM Code VSD06-NO Code Onset Dates Condition Status SNOMED Code Problem Chronic kidney disease N18.9 Active 724677320 Problem Chest wall pain R07.89 Active 307142975 Problem Chronic fatigue R53.82 Active 47835414 Problem Coronary artery disease involving lumbee coronary artery of lumbee heart without angina pectoris I25.10 Active 8069711816656 Problem Anemia, unspecified type D64.9 Active 019860396 Problem Vertigo R42 Active 959683294 Problem Mixed hyperlipidemia E78.2 Active 104434340 Problem Iron deficiency anemia, unspecified iron deficiency anemia type D50.9 Active 85370831 ALLERGIES No Information ENCOUNTERS Encounter Location Date Diagnosis [place] [id number] [place] [address] Dec, [place] [id number] [place] [address] Nov, Chest wall pain R07.89 [place] [id number] [place] [address] Oct, Chest wall pain R07.89 [place] [id number] [place] [address] Sep, Chest wall pain R07.89 and Pleurodynia R07.81 [facility] [place] [facility] [id number] [place] [address] Sep, [place] [id number] [place] [address] Sep, Chest wall pain R07.89 and Sore throat J02.9 [facility] [place] [facility] [id number] [address] Sep, [facility] [place] [facility] [id number] [place] [address] Sep, Sore throat J02.9 and Acute nasopharyngitis J00 [facility] [place] [facility] [id number] [place] [address] Sep, [facility] [place] [facility] [id number] [place] [address] Aug, Chest wall pain R07.89 [facility] [place] [facility] [id number] [place] [address] Jul, Chest wall pain R07.89 [facility] [place] [facility] [id number] [place] [address] Jul, [facility] [place] [facility] [id number] [place] [address] Jul, Chest wall pain R07.89 [facility] [place] [facility] [id number] [place] [address] Jul, Chest wall pain R07.89 ; Chronic fatigue R53.82 ; Anemia, unspecified type D64.9 ; Vertigo R42 and Coronary artery disease involving lumbee coronary artery of lumbee heart without angina pectoris I25.10 [facility] [place] [facility] [id number] [place] [address] Jun, Chest wall pain R07.89 [facility] [place] [facility] [id number] [place] [address] Apr, Chest wall pain R07.89 [facility] [place] [facility] [id number] [place] [address] Apr, [facility] [place] [facility] [id number] [place] [address] Apr, Dental abscess K04.7 [facility] [place] [facility] [id number] [place] [address] Apr, [facility] [place] [facility] [id number] [place] [address] Apr, Chest wall pain R07.89 [facility] [place] [facility] [id number] [place] [address] Mar, Chest wall pain R07.89 [facility] [place] [facility] [id number] [place] [address] Feb, Chest wall pain R07.89 ; Lateral epicondylitis of right elbow M77.11 and Mixed hyperlipidemia E78.2 [place] [id number] [place] [address] Feb, Chest wall pain R07.89 [place] [id number] [place] [address] January, [facility] [facility] [id number] [place] [address] January, Chest wall pain R07.89 [place] [id number] [place] [address] Dec, Chest wall pain R07.89 [facility] [place] [facility] [id number] [place] [address] Nov, [place] [id number] [place] [address] Nov, Hypokalemia E87.6 [place] [id number] [place] [address] Nov, Hypokalemia E87.6 and Iron deficiency anemia, unspecified iron deficiency anemia type D50.9 [facility] [place] [facility] [id number] [place] [address] Nov, [facility] [place] [facility] [id number] [place] [address] Nov, Nausea R11.0 and Hypovolemia E86.1 [facility] [place] [facility] [id number] [place] [address] Nov, [facility] [place] [facility] [id number] [place] [address] Nov, [facility] [place] [facility] [id number] [place] [address] Nov, Chest wall pain R07.89 [facility] [place] [facility] [id number] [place] [address] Nov, Bronchitis J40 [facility] [facility] [address] [address] Oct, Chest wall pain R07.89 [facility] [place] [facility] [id number] [place] [address] Sep, Chest wall pain R07.89 [facility] [place] [facility] [id number] [place] [address] Aug, Chest wall pain R07.89 [facility] [place] [facility] [id number] [place] [address] Aug, Chest pain on breathing R07.1 [facility] [place] [facility] [id number] [place] [address] Jul, [facility] [place] [facility] [id number] [place] [address] Jun, [facility] [place] [facility] [id number] [place] [address] 16 May, 2016 Chest wall pain R07.89 ; Iron deficiency anemia, unspecified iron deficiency anemia type D50.9 ; Chronic kidney disease N18.9 and Encounter for immunization Z23 [facility] [id number] [place] [address] May, [facility] [place] [facility] [id number] [place] [address] Apr, [facility] [place] [facility] [id number] [place] [address] Mar, [facility] [place] [facility] [id number] [place] [address] Mar, [facility] [place] [facility] [id number] [place] [address] Feb, [facility] [place] [facility] [id number] [place] [address] Feb, Iron deficiency anemia, unspecified iron deficiency anemia type D50.[address] [facility] [id number] [place] [address] Feb, Dehydration E86.0 ; Diarrhea, unspecified type R19.7 ; Dizziness R42 and Other specified hypotension I95.89 [place] [id number] [place] [address] Feb, Anemia, unspecified type D64.9 [place] [id number] [place] [address] January, Anemia, unspecified type D64.9 [place] [id number] [place] [address] January, Paresthesia R20.2 [place] [id number] [place] [address] January, Chest wall pain R07.89 [facility] [facility] [id number] [place] [address] Dec, Insomnia G47.00 [place] [id number] [place] [address] Dec, Chest pain on breathing R07.1 [facility] [facility] [id number] [place] [address] Nov, Chest pain on breathing R07.1 [facility] [facility] [id number] [place] [address] Oct, [facility] [facility] [id number] [place] [address] Oct, [facility] [facility] [id number] [place] [address] Oct, Low back pain M54.5 and Chest wall pain R07.89 [facility] [facility] [address] [address] Oct, Pleurodynia R07.81 [facility] [place] [facility] [id number] [place] [address] Sep, Pleurodynia R07.81 and Other nerve root and plexus disorders G54.8 [facility] [facility] [id number] [place] [address] Aug, Chronic kidney disease N18.9 ; Encounter for immunization Z23 ; Chest wall pain R07.89 ; Urinary frequency R35.0 and Vertigo R42 [facility] [facility] [id number] [place] [address] Aug, [facility] [facility] [id number] [place] [address] Jul, [facility] [place] [facility] [id number] [place] [address] Jul, [facility] [place] [facility] [id number] [place] [address] Jun, [facility] [place] [facility] [id number] [place] [address] Jun, [facility] [facility] [id number] [place] [address] May, [facility] [place] [facility] [id number] [place] [address] May, [facility] [facility] [address] [place] [address] May, [facility] [place] [facility] [address] [id number], [place] [address] May, Coronary atherosclerosis of unspecified type of vessel, lumbee or graft 414.00 [facility] [facility] [address] [id number], [place] [address] Apr, [facility] [facility] [address] [id number], [place] [address] Apr, [facility] [facility] [address] [id number], [place] [address] Apr, [facility] [place] [facility] [address] [id number], [place] [address] Apr, [facility] [facility] [address] [facility] [id number], [place] [address] Apr, [facility] [place] [facility] [address], [place] [address] Apr, Coronary atherosclerosis of unspecified type of vessel, lumbee or graft 414.00 and Left-sided chest wall pain 786.52 [facility] [place] [facility] [address] [id number], [place] [address] Mar, [facility] [place] [facility] [address] [id number], [place] [address] Mar, [facility] [facility] [address] [id number], [place] [address] Feb, [facility] [place] [facility] [address] [id number], [place] [address] Feb, [facility] [facility] [address], [place] [address] January, [facility] [place] [facility] [address] [id number], [place] [address] January, [facility] [place] [facility] [id number], [place] [address] January, [facility] [address] [facility] [id number] [place] [address] January, Neuropathic pain of chest 353.8 [facility] [place] [facility] [address] [id number] [place] [address] 14 Dec, 2014 [facility] [place] [facility] [address] [facility] [id number] [place] [address] Dec, [facility] [place] [facility] [address] [facility] [id number], [place] [address] Nov, [facility] [place] [facility] [address] [id number] [place] [address] Nov, [facility] [place] [facility] [address] [facility] [id number] [place] [address] Nov, [facility] [address] [facility] [id number] [place] [address] Nov, [facility] [place] [facility] [address] [facility] [id number], [place] [address] Nov, [facility] [place] [facility] [address] [facility] [id number] [place] [address] Nov, [facility] [place] [facility] [address] [facility] [id number], [place] [address] Oct, [facility] [place] [facility] [address] [facility] [id number], [place] [address] Oct, [facility] [place] [facility] [address] [facility] [id number], [place] [address] Oct, [facility] [place] [facility] [address] [facility] [id number] [place] [address] Oct, [facility] [place] [facility] [address] [facility] [id number], [place] [address] Oct, [facility] [place] [facility] [id number], [place] [address] Oct, [facility] [place] [facility] [address] [id number] [place] [address] Sep, [facility] [place] [facility] [address] [id number] [place] [address] Sep, [facility] [place] [facility] [address] [id number] [place] [address] Sep, [facility] [place] [facility] [address] [id number] [place] [address] Sep, [facility] [place] [facility] [address] [id number] [place] [address] Aug, [facility] [place] [facility] [address] [id number] [place] [address] Aug, [facility] [place] [facility] [address] [id number] [place] [address] Aug, [facility] [place] [facility] [address] [id number] [place] [address] Aug, [facility] [place] [facility] [address] [id number] [place] [address] Aug, [facility] [place] [facility] [address] [id number] [place] [address] Aug, [facility] [place] [facility] [address] [id number] [place] [address] Aug, [facility] [place] [facility] [address] [id number] [place] [address] Aug, [facility] [place] [facility] [address] [id number] [place] [address] Aug, [facility] [place] [facility] [address] [id number] [place] [address] Aug, [facility] [place] [facility] [address] [id number] [place] [address] Jul, [facility] [place] [facility] [address] [id number], [place] [address] Jul, [facility] [place] [facility] [address] [id number] [place] [address] Jul, [facility] [place] [facility] [address] [id number] [place] [address] Jul, [facility] [place] [facility] [address] [id number] [place] [address] Jun, [facility] [place] [facility] [address] [id number] [place] [address] Jun, [facility] [place] [facility] [address] [id number] [place] [address] Jun, [facility] [place] [facility] [address] [id number] [place] [address] Jun, [facility] [place] [facility] [address] [id number] [place] [address] May, [facility] [place] [facility] [address] [id number] [place] [address] May, [facility] [place] [facility] [address] [id number] [place] [address] May, [facility] [place] [facility] [address] [id number] [place] [address] May, [facility] [place] [facility] [address] [id number], [place] [address] Apr, [facility] [place] [facility] [address] [id number], [place] [address] Apr, [facility] [place] [facility] [address] [id number] [place] [address] Feb, [facility] [place] [facility] [address] [id number] [place] [address] January, [facility] [place] [facility] [address] [id number] [place] [address] January, [facility] [place] [facility] [address] [id number] [place] [address] January, [facility] [address] [id number] [place] [address] January, [facility] [address] [id number] [place] [address] January, [facility] [address] [id number] [place] [address] January, [facility] [address] [id number] [place] [address] Dec, [facility] [address] [id number] [place] [address] Dec, [facility] [address] [id number] [place] [address] Dec, [facility] [address] [id number] [place] [address] Dec, [facility] [address] [id number] [place] [address] Dec, [facility] [address] [id number] [place] [address] Dec, [facility] [address] [id number] [place] [address] Dec, [facility] [place] [facility] [address] [id number] [place] [address] Dec, [facility] [address] [id number] [place] [address] Nov, [facility] [place] [facility] [address] [id number] [place] [address] Nov, [facility] [place] [facility] [address] [id number] [place] [address] Nov, [facility] [place] [facility] [address] [id number] [place] [address] Nov, [facility] [place] [facility] [address] [id number] [place] [address] Nov, [facility] [place] [facility] [address] [id number] [place] [address] Nov, [facility] [place] [facility] [address] [id number] [place] [address] Nov, [facility] [place] [facility] [address] [id number] [place] [address] Oct, [facility] [place] [facility] [address] [id number] [place] [address] Oct, [facility] [place] [facility] [address] [id number] [place] [address] Oct, [facility] [place] [facility] [address] [id number] [place] [address] Oct, [facility] [place] [facility] [address] [id number] [place] [address] Sep, [facility] [place] [facility] [address] [id number] [place] [address] Sep, [facility] [place] [facility] [address] [id number] [place] [address] Sep, [facility] [place] [facility] [address] [id number] [place] [address] Sep, [facility] [place] [facility] [address] [id number] [place] [address] Aug, [facility] [place] [facility] [address] [id number] [place] [address] Aug, [facility] [place] [facility] [address] [id number] [place] [address] Jul, [facility] [place] [facility] [address] [id number] [place] [address] Jul, [facility] [place] [facility] [address] [id number] [place] [address] Jun, [facility] [address] [id number] [place] [address] Jun, [facility] [place] [facility] [address] [id number] [place] [address] Jun, [facility] [address] [id number] [place] [address] May, [facility] [place] [facility] [address] [id number] [place] [address] Apr, [facility] [address] [id number] [place] [address] Apr, [facility] [address] [id number] [place] [address] Mar, [facility] [address] [id number] [place] [address] Feb, [facility] [address] [id number] [place] [address] Feb, [facility] [address] [id number] [place] [address] January, [facility] [address] [id number] [place] [address] January, [facility] [address] [id number] [place] [address] Dec, [facility] [place] [facility] [address] [id number] [place] [address] Dec, [facility] [place] [facility] [address] [id number] [place] [address] Dec, [facility] [place] [facility] [address] [id number] [place] [address] Dec, [facility] [place] [facility] [address] [id number] [place] [address] Nov, [facility] [place] [facility] [address] [id number] [place] [address] 14 Nov, 2012 [facility] [address] [id number] [place] [address] Oct, [facility] [place] [facility] [address] [id number] [place] [address] Oct, [facility] [place] [facility] [address] [id number] [place] [address] Oct, [facility] [address] [id number] [place] [address] Sep, [facility] [address] [id number] [place] [address] Sep, [facility] [address] [id number] [place] [address] Sep, [facility] [address] [id number] [place] [address] Sep, [facility] [address] [id number] [place] [address] Sep, [facility] [address] [id number] [place] [address] Aug, [facility] [place] [facility] [address] [id number] [place] [address] Aug, [facility] [place] [facility] [address] [id number] [place] [address] Aug, [facility] [place] [facility] [address] [id number] [place] [address] Aug, [facility] [place] [facility] [address] [id number] [place] [address] Jul, [facility] [place] [facility] [address] [id number] [place] [address] Jul, [facility] [place] [facility] [address] [id number] [address] Jul, [facility] [place] [facility] [address] [id number] [place] [address] Jul, [facility] [place] [facility] [address] [id number] [place] [address] Jun, [facility] [place] [facility] [address] [id number] [place] [address] Jun, [facility] [place] [facility] [address] [id number] [place] [address] Jun, [facility] [place] [facility] [address] [id number] [place] [address] Jun, [facility] [place] [facility] [address] [id number] [place] [address] Jun, [facility] [place] [facility] [address] [id number] [place] [address] 24 May, 2012 [facility] [place] [facility] [address] [id number] [place] [address] 13 May, 2012 [facility] [place] [facility] [address] [id number] [place] [address] 12 May, 2012 [facility] [place] [facility] [address] [id number] [place] [address] 11 May, 2012 [facility] [place] [facility] [address] [id number] [place] [address] 10 May, 2012 [facility] [place] [facility] [address] [id number] [place] [address] 06 May, 2012 [facility] [place] [facility] [address] [id number] [place] [address] 05 May, 2012 [facility] [place] [facility] [address] [id number] [place] [address] 30 Apr, 2012 [facility] [place] [facility] [address] [id number] [place] [address] Apr, [facility] [place] [facility] [address] [id number] [place] [address] Apr, [facility] [place] [facility] [address] [id number] [place] [address] Apr, [facility] [place] [facility] [address] [id number] [place] [address] Apr, [facility] [place] [facility] [address] [id number] [place] [address] Apr, [facility] [facility] [address] [id number] [place] [address] Apr, [facility] [place] [facility] [address] [id number] [place] [address] Apr, [facility] [facility] [address] [id number] [place] [address] Mar, [facility] [facility] [address] [id number] [place] [address] Mar, [facility] [address] [id number] [place] [address] Mar, [facility] [facility] [address] [id number] [place] [address] Feb, [facility] [facility] [address] [id number] [place] [address] January, [facility] [facility] [address] [id number] [place] [address] January, [facility] [facility] [address] [id number] [place] [address] January, [facility] [place] [facility] [address] [id number] [place] [address] Dec, [facility] [place] [facility] [address] [id number] [place] [address] Dec, [facility] [place] [facility] [address] [id number] [place] [address] Dec, [facility] [address] [facility] [id number] [place] [address] Dec, [facility] [address] [facility] [id number] [place] [address] Dec, [facility] [address] [facility] [id number] [place] [address] Dec, IMMUNIZATIONS No Known Immunizations SOCIAL HISTORY Never Assessed REASON FOR VISIT Hydrocodone 05/30 PLAN OF CARE VITAL SIGNS MEDICATIONS Medication Instructions Dosage Frequency Start Date End Date Duration Status Hydrocodone-Acetaminophen 7.5-325 MG Orally, 5 times per day 2 tablet May, 30 days Active RESULTS No Results PROCEDURES [...] 04/02/2012 Surgical History appendectomy age 10 at [facility] Surgical History cholecystectomy-[facility] 2007 Surgical History coronary artery bypass graft LAD 02/2012 Surgical History heart cath x2 after bypass, pt has 5 stents Hospitalization History Chest pain, dizziness, renal insuff, heat cath showed CAD ([facility]) 01/03/2012 Hospitalization History CABG ([facility]) Dr. Banks 02/2012
--- OUTSIDE RECORDS SUMMARY | 2019-05-03 09:51 | XMS REPORT ---
Author Author BELEM FUENTES Organization [facility] [place] Address [address] [place] [address] Care Team Providers Care Electronic Prepress Operator Name Role Phone BELEM FUENTES Unavailable PROBLEMS Type Condition ICD9-CM Code [id number] Code Onset Dates Condition Status SNOMED Code Problem Chronic kidney disease N18.9 Active 047852422 Problem Chest wall pain R07.89 Active 269752405 Problem Chronic fatigue R53.82 Active 15209870 Problem Coronary artery disease involving [place] coronary artery of [place] heart without angina pectoris I25.10 Active 8282846687889 Problem Anemia, unspecified type D64.9 Active 761577851 Problem Vertigo R42 Active 334477893 Problem Mixed hyperlipidemia E78.2 Active 786657299 Problem Iron deficiency anemia, unspecified iron deficiency anemia type D50.9 Active 49554201 ALLERGIES No Information SOCIAL HISTORY Never Assessed PLAN OF CARE VITAL SIGNS MEDICATIONS Medication Instructions Dosage Frequency Start Date End Date Duration Status Temazepam 30 MG TAKE ONE CAPSULE BY MOUTH AT BEDTIME NEEDED 30 Active RESULTS No Results PROCEDURES No [...] History appendectomy age 10 at [facility] Surgical History cholecystectomy-[facility]t. Geovanny Gonzalez 2007 Surgical History coronary artery bypass graft LAD 02/2012 Surgical History heart cath x2 after bypass, pt has 5 stents Hospitalization History Chest pain, dizziness, renal insuff, heat cath showed CAD ([facility]) 01/03/2012 Hospitalization History CABG ([facility]) Dr. Banks 02/2012
--- OUTSIDE RECORDS SUMMARY | 2019-05-03 09:51 | XMS REPORT ---
Author Author BELEM FUENTES Organization [facility] Address [address] [place] [address] Care Team Providers Care Brake Liner Name Role Phone BELEM FUENTES Unavailable PROBLEMS Type Condition ICD9-CM Code OPP51-IP Code Onset Dates Condition Status SNOMED Code Problem Chronic kidney disease N18.9 Active 788723687 Problem Chest wall pain R07.89 Active 641486708 Problem Chronic fatigue R53.82 Active 25724948 Problem Coronary artery disease involving yakutat coronary artery of yakutat heart without angina pectoris I25.10 Active 3156196450431 Problem Anemia, unspecified type D64.9 Active 913581484 Problem Vertigo R42 Active 551133535 Problem Mixed hyperlipidemia E78.2 Active 686328631 Problem Iron deficiency anemia, unspecified iron deficiency anemia type D50.9 Active 05067508 ALLERGIES No Information ENCOUNTERS Encounter Location Date Diagnosis [place] [id number] [place] [address] Oct, Chest wall pain R07.89 [facility] [id number] [place] [address] Sep, Chest wall pain R07.89 and Pleurodynia R07.81 [facility] [id number] [place] [address] Sep, [facility] [id number] [place] [address] Sep, Chest wall pain R07.89 and Sore throat J02.9 [facility] [id number] [place] [address] Sep, [facility] [id number] [place] [address] Sep, Sore throat J02.9 and Acute nasopharyngitis J00 [facility] [id number] [place] [address] Sep, [facility] [id number] [place] [address] Aug, Chest wall pain R07.89 [facility] [id number] [place] [address] Jul, Chest wall pain R07.89 [facility] [id number] [place] [address] Jul, [facility] [address] [address] Jul, Chest wall pain R07.89 [place] [id number] [place] [address] Jul, Chest wall pain R07.89 ; Chronic fatigue R53.82 ; Anemia, unspecified type D64.9 ; Vertigo R42 and Coronary artery disease involving yakutat coronary artery of yakutat heart without angina pectoris I25.10 [place] [id number] [place] [address] Jun, Chest wall pain R07.89 [facility] [id number] [place] [address] Apr, Chest wall pain R07.89 [facility] [id number] [place] [address] Apr, [facility] [id number] [place] [address] Apr, Dental abscess K04.7 [facility] [id number] [place] [address] Apr, [facility] [id number] [place] [address] Apr, Chest wall pain R07.89 [facility] [id number] [place] [address] 07 Mar, 2017 Chest wall pain R07.89 [facility] [id number] [place] [address] 15 Feb, 2017 Chest wall pain R07.89 ; Lateral epicondylitis of right elbow M77.11 and Mixed hyperlipidemia E78.2 [place] [address] [address] 07 Feb, 2017 Chest wall pain R07.89 [facility] [id number] [place] [address] January, [facility] [id number] [place] [address] January, Chest wall pain R07.89 [place] [id number] [place] [address] Dec, Chest wall pain R07.89 [place] [id number] [place] [address] Nov, [facility] [id number] [place] [address] Nov, Hypokalemia E87.6 [place] [place] [id number] [place] [address] Nov, Hypokalemia E87.6 and Iron deficiency anemia, unspecified iron deficiency anemia type D50.9 [place] [id number] [place] [address] Nov, [place] [id number] [place] [address] Nov, Nausea R11.0 and Hypovolemia E86.1 [place] [id number] [place] [address] Nov, [place] [id number] [place] [address] Nov, [facility] [id number] [place] [address] Nov, Chest wall pain R07.89 [facility] [id number] [place] [address] Nov, Bronchitis J40 [facility] [id number] [place] [address] Oct, Chest wall pain R07.89 [facility] [id number] [place] [address] Sep, Chest wall pain R07.89 [facility] [id number] [place] [address] Aug, Chest wall pain R07.89 [facility] [id number] [place] [address] Aug, Chest pain on breathing R07.1 [facility] [id number] [place] [address] Jul, [facility] [id number] [place] [address] Jun, [facility] [id number] [place] [address] May, Chest wall pain R07.89 ; Iron deficiency anemia, unspecified iron deficiency anemia type D50.9 ; Chronic kidney disease N18.9 and Encounter for immunization Z23 [facility] [address] [address] May, [facility] [id number] [place] [address] Apr, [facility] [id number] [place] [address] Mar, [facility] [id number] [place] [address] Mar, [facility] [id number] [place] [address] Feb, [facility] [id number] [place] [address] Feb, Iron deficiency anemia, unspecified iron deficiency anemia type D50.9 [facility] [id number] [place] [address] Feb, Dehydration E86.0 ; Diarrhea, unspecified type R19.7 ; Dizziness R42 and Other specified hypotension I95.89 [place] [id number] [place] [address] Feb, Anemia, unspecified type D64.9 [place] [id number] [place] [address] January, Anemia, unspecified type D64.9 [place] [id number] [place] [address] January, Paresthesia R20.2 [place] [id number] [place] [address] January, Chest wall pain R07.89 [place] [id number] [place] [address] Dec, Insomnia G47.00 [place] [id number] [place] [address] Dec, Chest pain on breathing R07.1 [place] [id number] [place] [address] Nov, Chest pain on breathing R07.1 [place] [id number] [place] [address] Oct, [facility] [id number] [place] [address] Oct, [facility] [id number] [place] [address] Oct, Low back pain M54.5 and Chest wall pain R07.89 [facility] [id number] [place] [address] Oct, Pleurodynia R07.81 [facility] [id number] [place] [address] Sep, Pleurodynia R07.81 and Other nerve root and plexus disorders G54.8 [facility] [id number] [place] [address] Aug, Chronic kidney disease N18.9 ; Encounter for immunization Z23 ; Chest wall pain R07.89 ; Urinary frequency R35.0 and Vertigo R42 [facility] [id number] [place] [address] Aug, [facility] [id number] [place] [address] Jul, [facility] [id number] [place] [address] Jul, [facility] [id number] [place] [address] Jun, [facility] [id number] [place] [address] Jun, [facility] [id number] [place] [address] May, [facility] [id number] [place] [address] May, [facility] [id number] [place] [address] May, [facility] [id number] [place] [address] May, Coronary atherosclerosis of unspecified type of vessel, yakutat or graft 414.00 [facility] [id number] [address] Apr, [facility] [address] [address] Apr, [facility] [address] [address] Apr, [facility] [id number] [place] [address] Apr, [facility] [id number] [place] [address] Apr, [facility] [id number] [place] [address] Apr, Coronary atherosclerosis of unspecified type of vessel, yakutat or graft 414.00 and Left-sided chest wall pain 786.52 [facility] [id number] [place] [address] Mar, [facility] [id number] [address] Mar, [facility] [address] [address] Feb, [facility] [address] [address] Feb, [facility] [address] [address] January, [facility] [address] [address] January, [facility] [address] [address] January, [facility] [address] [address] January, Neuropathic pain of chest 353.8 [facility] [address] [address] Dec, [facility] [place] [facility] [address] [id number] [place] [address] 13 Dec, 2014 [facility] [place] [facility] [address] [id number] [place] [address] Nov, [facility] [place] [facility] [address] [id number] [place] [address] Nov, [facility] [place] [facility] [address] [id number] [place] [address] Nov, [facility] [place] [facility] [address] [id number] [place] [address] Nov, [facility] [place] [facility] [address] [id number] [place] [address] Nov, [facility] [place] [facility] [address] [facility] [id number] [place] [address] Nov, [facility] [place] [facility] [address] [id number] [place] [address] Oct, [facility] [place] [facility] [address] [id number] [place] [address] Oct, [facility] [place] [facility] [address] [id number] [place] [address] Oct, [facility] [place] [facility] [address] [id number] [place] [address] Oct, [facility] [place] [facility] [address] [id number] [address] Oct, [facility] [place] [facility] [address] [id number] [place] [address] Oct, [facility] [place] [facility] [address] [id number] [address] Sep, [facility] [place] [facility] [address] [id number] [place] [address] Sep, [facility] [place] [facility] [address] [id number] [place] [address] Sep, [facility] [place] [facility] [address] [id number] [place] [address] Sep, [facility] [place] [facility] [address] [id number] [place] [address] Aug, [facility] [place] [facility] [address] [id number] [place] [address] Aug, [facility] [place] [facility] [address] [id number] [place] [address] Aug, [facility] [place] [facility] [address] [id number] [place] [address] Aug, [facility] [place] [facility] [address] [id number] [place] [address] Aug, [facility] [place] [facility] [address] [id number] [place] [address] Aug, [facility] [place] [facility] [address] [id number] [place] [address] Aug, [facility] [place] [facility] [address] [id number] [place] [address] Aug, [facility] [place] [facility] [address] [id number] [place] [address] Aug, [facility] [place] [facility] [address] [id number] [place] [address] Aug, [facility] [place] [facility] [address] [id number] [place] [address] Jul, [facility] [place] [facility] [address] [id number] [place] [address] Jul, [facility] [place] [facility] [address] [id number] [place] [address] Jul, [facility] [place] [facility] [address] [id number] [place] [address] Jul, [facility] [place] [facility] [address] [id number] [place] [address] Jun, [facility] [place] [facility] [address] [id number] [place] [address] Jun, [facility] [place] [facility] [address] [id number] [place] [address] Jun, [facility] [place] [facility] [address] [id number] [place] [address] Jun, [facility] [place] [facility] [address] [id number] [place] [address] May, [facility] [place] [facility] [address] [id number] [place] [address] May, [facility] [place] [facility] [address] [id number] [place] [address] May, [facility] [place] [facility] [address] [id number] [place] [address] May, [facility] [place] [facility] [address] [id number] [place] [address] Apr, [facility] [place] [facility] [address] [id number] [place] [address] Apr, [facility] [place] [facility] [address] [id number] [place] [address] Feb, [facility] [place] [facility] [address] [id number] [place] [address] January, [facility] [place] [facility] [address] [id number] [place] [address] January, [facility] [place] [facility] [address] [id number] [place] [address] January, [facility] [place] [facility] [address] [id number] [place] [address] January, [facility] [place] [facility] [address] [id number] [place] [address] January, [facility] [place] [facility] [address] [id number] [place] [address] January, [facility] [place] [facility] [address] [id number] [place] [address] Dec, [facility] [place] [facility] [address] [id number] [place] [address] Dec, [facility] [place] [facility] [address] [id number] [place] [address] Dec, [facility] [place] [facility] [address] [id number] [place] [address] Dec, [facility] [place] [facility] [address] [id number] [place] [address] Dec, [facility] [place] [facility] [address] [id number] [place] [address] Dec, [facility] [place] [facility] [address] [id number] [place] [address] Dec, [facility] [place] [facility] [address] [id number] [place] [address] Dec, [facility] [place] [facility] [address] [id number] [place] [address] Nov, [facility] [place] [facility] [address] [id number] [place] [address] Nov, [facility] [place] [facility] [address] [id number] [place] [address] Nov, [facility] [place] [facility] [address] [id number] [place] [address] Nov, [facility] [place] [facility] [address] [id number] [place] [address] Nov, [facility] [place] [facility] [address] [id number] [place] [address] Nov, [facility] [place] [facility] [address] [id number] [place] [address] Nov, [facility] [place] [facility] [address] [id number] [place] [address] Oct, [facility] [place] [facility] [address] [id number] [place] [address] Oct, [facility] [place] [facility] [address] [id number] [place] [address] Oct, [facility] [place] [facility] [address] [id number] [place] [address] Oct, [facility] [place] [facility] [address] [id number] [place] [address] Sep, [facility] [place] [facility] [address] [id number] [place] [address] Sep, [facility] [place] [facility] [address] [id number] [place] [address] Sep, [facility] [place] [facility] [address] [id number] [place] [address] Sep, [facility] [place] [facility] [address] [id number] [place] [address] Aug, [facility] [place] [facility] [address] [facility] [id number] [place] [address] Aug, [facility] [place] [facility] [address] [id number] [place] [address] Jul, [facility] [place] [facility] [address] [id number] [place] [address] Jul, [facility] [place] [facility] [address] [id number] [place] [address] Jun, [facility] [place] [facility] [address] [id number] [place] [address] Jun, [facility] [place] [facility] [address] [id number] [place] [address] Jun, [facility] [address] [id number] [place] [address] May, [facility] [place] [facility] [address] [id number] [place] [address] Apr, [facility] [address] [id number] [place] [address] Apr, [facility] [place] [facility] [address] [id number] [place] [address] Mar, [facility] [address] [id number] [place] [address] Feb, [facility] [place] [facility] [address] [id number] [place] [address] Feb, [facility] [place] [facility] [address] [id number] [place] [address] January, [facility] [place] [facility] [address] [id number] [place] [address] January, [facility] [address] [id number] [place] [address] Dec, [facility] [place] [facility] [address] [id number] [place] [address] Dec, [facility] [place] [facility] [address] [id number] [address] Dec, [facility] [place] [facility] [address] [id number] [address] Dec, [facility] [place] [facility] [address] [id number] [place] [address] Nov, [facility] [place] [facility] [address] [id number] [address] Nov, [facility] [place] [facility] [address] [id number] [place] [address] Oct, [facility] [place] [facility] [address] [id number] [place] [address] 28 Oct, 2012 [facility] [address] [id number] [place] [address] Oct, [facility] [address] [id number] [place] [address] Sep, [facility] [address] [id number] [place] [address] Sep, [facility] [address] [id number] [place] [address] Sep, [facility] [address] [id number] [place] [address] Sep, [facility] [address] [id number] [place] [address] Sep, [facility] [address] [id number] [place] [address] Aug, [facility] [address] [id number] [place] [address] Aug, [facility] [address] [facility] [id number] [place] [address] Aug, [facility] [address] [facility] [id number] [place] [address] Aug, [facility] [address] [id number] [place] [address] Jul, [facility] [address] [id number] [place] [address] Jul, [facility] [address] [id number] [place] [address] Jul[facility] [address] [facility] [id number] [place] [address] Jul, [facility] [address] [id number] [place] [address] Jun, [facility] [place] [facility] [address] [id number] [place] [address] Jun, [facility] [place] [facility] [address] [id number] [place] [address] 08 Jun, 2012 [facility] [place] [facility] [address] [id number] [place] [address] 05 Jun, 2012 [facility] [place] [facility] [address] [id number] [place] [address] Jun, [facility] [place] [facility] [address] [id number] [place] [address] 24 May, 2012 [facility] [place] [facility] [address] [id number] [place] [address] 13 May, 2012 [facility] [place] [facility] [address] [id number] [place] [address] 12 May, 2012 [facility] [place] [facility] [address] [id number] [place] [address] 11 May, 2012 [facility] [place] [facility] [address] [id number] [place] [address] 10 May, 2012 [facility] [place] [facility] [address] [id number] [place] [address] 06 May, 2012 [facility] [place] [facility] [address] [id number] [place] [address] 05 May, 2012 [facility] [place] [facility] [address] [id number] [address] 30 Apr, 2012 [facility] [place] [facility] [address] [id number] [place] [address] Apr, [facility] [place] [facility] [address] [id number] [place] [address] Apr, [facility] [place] [facility] [address] [id number], [place] [address] Apr, [facility] [place] [facility] [address] [id number], [place] [address] Apr, [facility] [address] [id number] [place] [address] Apr, [facility] [place] [facility] [address] [id number] [place] [address] Apr, [facility] [place] [facility] [address] [id number] [place] [address] Apr, [facility] [place] [facility] [address] [id number] [place] [address] Mar, [facility] [place] [facility] [address] [id number] [place] [address] Mar, [facility] [place] [facility] [address] [id number] [place] [address] Mar, [facility] [place] [facility] [address] [id number] [place] [address] Feb, [facility] [place] [facility] [address] [id number] [place] [address] January, [facility] [place] [facility] [address] [id number] [place] [address] January, [facility] [place] [facility] [address] [id number] [place] [address] January, [facility] [place] [facility] [address] [id number] [place] [address] Dec, [facility] [place] [facility] [address] [id number] [place] [address] Dec, [facility] [place] [facility] [address] [id number] [place] [address] Dec, [facility] [place] [facility] [address] [id number] [place] [address] Dec, [facility] [place] [facility] [address] [id number] [place] [address] Dec, [facility] [place] [facility] [address] [facility] [id number] [place] [address] Dec, IMMUNIZATIONS No Known Immunizations SOCIAL HISTORY Never Assessed REASON FOR VISIT Hydrocodone 03/03 PLAN OF CARE VITAL SIGNS MEDICATIONS Medication [...] 04/02/2012 Surgical History appendectomy age 10 at [facility] Surgical History cholecystectomy-[facility] 2007 Surgical History coronary artery bypass graft LAD 02/2012 Surgical History heart cath x2 after bypass, pt has 5 stents Hospitalization History Chest pain, dizziness, renal insuff, heat cath showed CAD ([facility]) 01/03/2012 Hospitalization History CABG ([facility]) Dr. Banks 02/2012
--- OUTSIDE RECORDS SUMMARY | 2019-05-03 09:51 | XMS REPORT ---
Author Author BELEM FUENTES [facility] e[employer] Address Unknown Phone Unavailable Care Team Providers Care Iuss Acoustic Analyst Name Role Phone BELEM FUENTES CP Unavailable Allergies No Known Allergies Problems Problem Type Condition Code Onset Dates Condition Status Problem Coronary atherosclerosis of unspecified type of vessel, [place] or graft 414.00 Active Problem Dizziness and giddiness 780.4 Active Problem Anxiety state, unspecified 300.00 Active Problem Chronic airway obstruction, not elsewhere classified 496 Active Problem Painful respiration 786.52 Active Medications Medication Code System Code Instructions Start Date End Date Status Dosage Diclofenac Sodium [facility] [address]-28 75 MG Orally 2 times a day ONE TABLET Results No Known Results Summary Purpose eClinicalWorks Submission
--- OUTSIDE RECORDS SUMMARY | 2019-05-03 09:51 | XMS REPORT ---
Author Author BELEM FUENTES Organization e[employer] Address Unknown Phone Unavailable Care Team Providers Care Social Media Sr Strategy Manager Name Role Phone BELEM FUENTES CP Unavailable Allergies No Known Allergies Problems Problem Type Condition ICD-9 Code Onset Dates Condition Status Problem Coronary atherosclerosis of unspecified type of vessel, [place] or graft 414.00 Active Problem Dizziness and giddiness 780.4 Active Problem Anxiety state, unspecified 300.00 Active Problem Chronic airway obstruction, not elsewhere classified 496 Active Problem Painful respiration 786.52 Active Medications Medication Code System Code Instructions Start Date End Date Status Dosage Restoril [facility][NOTE 3] [address]-65 30 MG Orally Once a day Nov 20, 2014 1 capsule at bedtime as needed Seroquel [facility][NOTE 3] [address]-15 200 MG Once a day TAKE ONE TABLET BY MOUTH DAILY Results No Known Results Summary Purpose eClinicalWorks Submission
--- OUTSIDE RECORDS SUMMARY | 2019-05-03 09:51 | XMS REPORT ---
Author Author BELEM FUENTES Organization [facility] Address [address] [place] [address] Care Team Providers Care Hospice Educator Name Role Phone BELEM FUENTES Unavailable PROBLEMS Type Condition ICD9-CM Code MKJ48-VI Code Onset Dates Condition Status SNOMED Code Problem Chronic kidney disease N18.9 Active 971794382 Problem Chest wall pain R07.89 Active 301967800 Problem Chronic fatigue R53.82 Active 41326559 Problem Coronary artery disease involving elem coronary artery of elem heart without angina pectoris I25.10 Active 5386984565935 Problem Anemia, unspecified type D64.9 Active 382861265 Problem Vertigo R42 Active 234524393 Problem Mixed hyperlipidemia E78.2 Active 963281326 Problem Iron deficiency anemia, unspecified iron deficiency anemia type D50.9 Active 32668748 ALLERGIES No Information ENCOUNTERS Encounter Location Date Diagnosis [place] [id number] [address] Dec, Chest wall pain R07.89 ; Coronary artery disease involving elem coronary artery of elem heart without angina pectoris I25.10 and Vertigo R42 [facility] [id number] [place] [address] Dec, Chest wall pain R07.89 [facility] [address] [place] [id number] [place] [address] Nov, Chest wall pain R07.89 [facility] [address] [address] Oct, Chest wall pain R07.89 [facility] [address] [place] [id number] [place] [address] Sep, Chest wall pain R07.89 and Pleurodynia R07.81 [facility] [id number] [place] [address] Sep, [facility] [address] [place] [id number] [place] [address] Sep, Chest wall pain R07.89 and Sore throat J02.9 [facility] [address] [place] [id number] [place] [address] Sep, [facility] [address] [address] Sep, Sore throat J02.9 and Acute nasopharyngitis J00 [place] [address] [address] Sep, [place] [address] [place] [id number] [place] [address] Aug, Chest wall pain R07.89 [place] [address] [address] Jul, Chest wall pain R07.89 [place] [address] [place] [id number] [place] [address] Jul, [place] [address] [place] [id number] [place] [address] Jul, Chest wall pain R07.89 [place] [address] [place] [id number] [place] [address] Jul, Chest wall pain R07.89 ; Chronic fatigue R53.82 ; Anemia, unspecified type D64.9 ; Vertigo R42 and Coronary artery disease involving elem coronary artery of elem heart without angina pectoris I25.10 [facility] [address] [place] [id number] [place] [address] Jun, Chest wall pain R07.89 [facility] [address] [place] [id number] [place] [address] Apr, Chest wall pain R07.89 [place] [address] [address] Apr, [facility] [address] [place] [id number] [place] [address] Apr, Dental abscess K04.7 [facility] [id number] [place] [address] Apr, [facility] [address] [place] [id number] [place] [address] Apr, Chest wall pain R07.89 [facility] [address] [place] [id number] [place] [address] Mar, Chest wall pain R07.89 [facility] [address] [place] [id number] [place] [address] Feb, Chest wall pain R07.89 ; Lateral epicondylitis of right elbow M77.11 and Mixed hyperlipidemia E78.2 [facility] [address] [place] [id number] [place] [address] Feb, Chest wall pain R07.89 [facility] [address] [place] [id number] [place] [address] January, [facility] [address] [place] [id number] [place] [address] January, Chest wall pain R07.89 [facility] [address] [place] [id number] [place] [address] Dec, Chest wall pain R07.89 [facility] [address] [address] Nov, [facility] [address] [place] [id number] [place] [address] Nov, Hypokalemia E87.6 [facility] [id number] [place] [address] Nov, Hypokalemia E87.6 and Iron deficiency anemia, unspecified iron deficiency anemia type D50.9 [facility] [address] [place] [id number] [place] [address] Nov, [facility] [address] [place] [id number] [place] [address] Nov, Nausea R11.0 and Hypovolemia E86.1 [facility] [address] [place] [id number] [place] [address] Nov, [facility] [address] [place] [id number] [place] [address] Nov, [facility] [address] [place] [id number] [place] [address] Nov, Chest wall pain R07.89 [facility] [address] [place] [id number] [place] [address] Nov, Bronchitis J40 [facility] [address] [place] [id number] [place] [address] 09 Oct, 2016 Chest wall pain R07.89 [facility] [address] [place] [id number] [place] [address] Sep, Chest wall pain R07.89 [facility] [address] [place] [id number] [place] [address] Aug, Chest wall pain R07.89 [facility] [address] [place] [id number] [place] [address] Aug, Chest pain on breathing R07.1 [facility] [address] [place] [id number] [place] [address] 10 Jul, 2016 [facility] [address] [place] [id number] [place] [address] 07 Jun, 2016 [facility] [address] [place] [id number] [place] [address] 16 May, 2016 Chest wall pain R07.89 ; Iron deficiency anemia, unspecified iron deficiency anemia type D50.9 ; Chronic kidney disease N18.9 and Encounter for immunization Z23 [facility] [address] [place] [id number] [place] [address] May, [facility] [address] [address] Apr, [facility] [address] [address] Mar, [place] [address] [address] Mar, [place] [address] [address] Feb, [place] [address] [address] Feb, Iron deficiency anemia, unspecified iron deficiency anemia type D50.9 [facility] [address] [address] Feb, Dehydration E86.0 ; Diarrhea, unspecified type R19.7 ; Dizziness R42 and Other specified hypotension I95.89 [place] [address] [address] Feb, Anemia, unspecified type D64.9 [place] [address] [place] [id number] [place] [address] January, Anemia, unspecified type D64.9 [place] [address] [place] [id number] [place] [address] January, Paresthesia R20.2 [place] [address] [place] [id number] [place] [address] January, Chest wall pain R07.89 [place] [address] [place] [id number] [place] [address] Dec, Insomnia G47.00 [place] [address] [address] Dec, Chest pain on breathing R07.1 [facility] [address] [place] [id number] [place] [address] Nov, Chest pain on breathing R07.1 [facility] [address] [place] [id number] [place] [address] Oct, [facility] [address] [address] Oct, [facility] [address] [address] Oct, Low back pain M54.5 and Chest wall pain R07.89 [facility] [address] [place] [id number] [place] [address] Oct, Pleurodynia R07.81 [facility] [address] [address] Sep, Pleurodynia R07.81 and Other nerve root and plexus disorders G54.8 [facility] [address] [place] [id number] [place] [address] Aug, Chronic kidney disease N18.9 ; Encounter for immunization Z23 ; Chest wall pain R07.89 ; Urinary frequency R35.0 and Vertigo R42 [facility] [address] [place] [id number] [place] [address] Aug, [facility] [address] [place] [id number] [place] [address] Jul, [facility] [address] [place] [id number] [place] [address] Jul, [facility] [address] [address] Jun, [facility] [address] [place] [id number] [place] [address] Jun, [facility] [address] [place] [address] May, [facility] [address] [id number] [address] May, [facility] [address] [facility] [id number][place] [address] May, [facility] [address] [facility] [id number], [place] [address] May, Coronary atherosclerosis of unspecified type of vessel, elem or graft 414.00 [facility] [address] [id number], [place] [address] Apr, [facility] [address] [id number][place] [address] Apr, [facility] [address] [place] [id number] [address] Apr, [facility] [address] [place] [id number] [address] Apr, [facility] [address] [facility] [id number] [address] Apr, [facility] [address] [address] Apr, Coronary atherosclerosis of unspecified type of vessel, elem or graft 414.00 and Left-sided chest wall pain 786.52 [facility] [address] [facility] [id number] [address] Mar, [facility] [address] [facility] [id number] [address] Mar, [facility] [address] [address] Feb, [facility] [address] [facility] [id number], [place] [address] Feb, [facility] [address] [place] [id number] [address] January, [facility] [address] [facility] [id number] [place] [address] January, [facility] [address] [facility] [id number] [place] [address] January, [facility] [address] [place] [id number] [address] January, Neuropathic pain of chest 353.8 [facility] [address] [facility] [id number] [place] [address] Dec, [facility] [address] [facility] [id number] [place] [address] Dec, [facility] [address] [facility] [id number] [place] [address] Nov, [facility] [address] [place] [address] Nov, [facility] [address] [facility] [id number] [place] [address] Nov, [facility] [address] [place] [id number] [address] Nov, [facility] [address] [facility] [id number] [place] [address] Nov, [facility] [address] [facility] [id number][place] [address] Nov, [facility] [place] [facility] [address] [facility] [id number], [place] [address] Oct, [facility] [place] [facility] [address] [facility] [id number] [place] [address] Oct, [facility] [place] [facility] [address] [facility] [id number], [place] [address] Oct, [facility] [address] [place] [id number] [address] Oct, [facility] [place] [facility] [address] [id number] [place] [address] Oct, [facility] [place] [facility] [address] [id number] [place] [address] Oct, [facility] [place] [facility] [address] [id number] [place] [address] Sep, [facility] [place] [facility] [address] [id number] [place] [address] Sep, [facility] [place] [facility] [address] [id number] [place] [address] Sep, [facility] [place] [facility] [address] [id number] [place] [address] Sep, [facility] [place] [facility] [address] [id number] [place] [address] Aug, [facility] [place] [facility] [address] [id number] [place] [address] Aug, [facility] [place] [facility] [address] [id number] [place] [address] Aug, [facility] [place] [facility] [address] [id number] [place] [address] Aug, [facility] [place] [facility] [address] [id number] [place] [address] Aug, [facility] [place] [facility] [address] [id number] [place] [address] Aug, [facility] [place] [facility] [address] [id number] [place] [address] Aug, [facility] [place] [facility] [address] [id number] [place] [address] Aug, [facility] [place] [facility] [address] [id number] [place] [address] Aug, [facility] [place] [facility] [address] [id number], [place] [address] Aug, [facility] [place] [facility] [address] [id number] [place] [address] Jul, [facility] [place] [facility] [address] [id number] [place] [address] Jul, [facility] [place] [facility] [address] [id number] [place] [address] Jul, [facility] [place] [facility] [address] [id number] [place] [address] Jul, [facility] [place] [facility] [address] [id number] [place] [address] Jun, [facility] [place] [facility] [address] [id number] [place] [address] Jun, [facility] [place] [facility] [address] [id number] [place] [address] Jun, [facility] [place] [facility] [address] [id number] [place] [address] Jun, [facility] [place] [facility] [address] [id number] [place] [address] May, [facility] [place] [facility] [address] [id number] [place] [address] May, [facility] [place] [facility] [address] [id number] [place] [address] May, [facility] [place] [facility] [address] [id number] [place] [address] May, [facility] [place] [facility] [address] [id number] [place] [address] Apr, [facility] [place] [facility] [address] [id number] [place] [address] Apr, [facility] [place] [facility] [address] [id number] [place] [address] Feb, [facility] [place] [facility] [address] [id number] [place] [address] January, [facility] [address] [id number] [place] [address] January, [facility] [address] [id number] [place] [address] January, [facility] [address] [id number] [place] [address] January, [facility] [address] [id number] [place] [address] January, [facility] [address] [id number] [place] [address] January, [facility] [address] [id number] [place] [address] Dec, [facility] [address] [id number] [place] [address] Dec, [facility] [address] [id number] [place] [address] Dec, [facility] [address] [id number] [place] [address] Dec, [facility] [address] [id number] [place] [address] Dec, [facility] [place] [facility] [address] [id number] [place] [address] Dec, [facility] [address] [id number] [place] [address] Dec, [facility] [place] [facility] [address] [id number] [place] [address] Dec, [facility] [place] [facility] [address] [id number] [place] [address] Nov, [facility] [place] [facility] [address] [id number] [place] [address] Nov, [facility] [place] [facility] [address] [id number] [place] [address] Nov, [facility] [place] [facility] [address] [id number] [place] [address] Nov, [facility] [place] [facility] [address] [id number] [place] [address] Nov, [facility] [place] [facility] [address] [id number] [place] [address] Nov, [facility] [place] [facility] [address] [id number] [place] [address] Nov, [facility] [place] [facility] [address] [id number] [place] [address] Oct, [facility] [place] [facility] [address] [id number] [place] [address] Oct, [facility] [place] [facility] [address] [id number] [place] [address] Oct, [facility] [place] [facility] [address] [id number] [place] [address] Oct, [facility] [place] [facility] [address] [id number] [place] [address] Sep, [facility] [place] [facility] [address] [id number] [place] [address] Sep, [facility] [place] [facility] [address] [id number] [place] [address] Sep, [facility] [place] [facility] [address] [id number] [place] [address] Sep, [facility] [place] [facility] [address] [id number] [place] [address] Aug, [facility] [place] [facility] [address] [id number] [place] [address] Aug, [facility] [place] [facility] [address] [id number] [place] [address] Jul, [facility] [address] [id number] [place] [address] Jul, [facility] [place] [facility] [address] [id number] [place] [address] Jun, [facility] [place] [facility] [address] [id number] [place] [address] Jun, [facility] [place] [facility] [address] [id number] [place] [address] Jun, [facility] [place] [facility] [address] [id number] [place] [address] May, [facility] [place] [facility] [address] [id number] [place] [address] Apr, [facility] [place] [facility] [address] [id number] [place] [address] Apr, [facility] [place] [facility] [address] [id number] [place] [address] Mar, [facility] [place] [facility] [address] [id number] [place] [address] Feb, [facility] [place] [facility] [address] [id number] [place] [address] Feb, [facility] [place] [facility] [address] [id number] [place] [address] January, [facility] [place] [facility] [address] [id number] [place] [address] January, [facility] [place] [facility] [address] [id number] [place] [address] Dec, [facility] [place] [facility] [address] [id number] [place] [address] Dec, [facility] [place] [facility] [address] [id number] [place] [address] Dec, [facility] [place] [facility] [address] [id number] [place] [address] Dec, [facility] [place] [facility] [address] [id number] [place] [address] Nov, [facility] [place] [facility] [address] [id number] [place] [address] Nov, [facility] [place] [facility] [address] [id number] [place] [address] Oct, [facility] [place] [facility] [address] [id number] [place] [address] Oct, [facility] [place] [facility] [address] [id number] [place] [address] Oct, [facility] [address] [id number] [place] [address] Sep, [facility] [address] [id number] [place] [address] Sep, [facility] [place] [facility] [address] [id number] [place] [address] Sep, [facility] [address] [id number] [place] [address] Sep, [facility] [place] [facility] [address] [id number] [place] [address] Sep, [facility] [place] [facility] [address] [id number], [place] [address] Aug, [facility] [place] [facility] [address] [id number] [place] [address] Aug, [facility] [place] [facility] [address] [id number] [place] [address] Aug, [facility] [place] [facility] [address] [id number] [place] [address] Aug, [facility] [place] [facility] [address] [id number], [place] [address] Jul, [facility] [place] [facility] [address] [id number] [place] [address] Jul, [facility] [place] [facility] [address] [facility] [id number], [place] [address] Jul, [facility] [place] [facility] [address] [id number] [address] Jul, [facility] [place] [facility] [address] [facility] [id number] [place] [address] Jun, [facility] [place] [facility] [id number] [place] [address], [place] [address] Jun, [facility] [place] [facility] [address] [facility] [id number] [place] [address] Jun, [facility] [place] [facility] [id number] [address] Jun, [facility] [place] [facility] [address] [facility] [id number] [address] Jun, [facility] [place] [facility] [address] [id number] [address] 24 May, 2012 [facility] [place] [facility] [address] [id number] [address] 13 Sep2011 [facility] [place] [facility] [address] [facility] [id number] [address] 12 Sep2011 [facility] [place] [facility] [address] [facility] [id number][place] [address] 11 Sep2011 [facility] [place] [facility] [address] [facility] [id number] [address] 10 Sep2011 [facility] [place] [facility] [address] [facility] [id number] [address] 06 Sep2011 [facility] [place] [facility] [address] [id number] [address] 05 Sep, 2011 [facility] [place] [facility] [address] [id number] [place] [address] Apr, [facility] [place] [facility] [address] [id number] [place] [address] Apr, [facility] [place] [facility] [address] [id number] [place] [address] Apr, [facility] [place] [facility] [address] [id number] [place] [address] Apr, [facility] [place] [facility] [address] [id number] [place] [address] Apr, [facility] [place] [facility] [address] [id number] [place] [address] Apr, [facility] [place] [facility] [address] [id number] [place] [address] Apr, [facility] [place] [facility] [address] [id number] [place] [address] Apr, [facility] [place] [facility] [address] [id number] [place] [address] Mar, [facility] [place] [facility] [address] [id number] [place] [address] Mar, [facility] [place] [facility] [address] [id number] [place] [address] Mar, [facility] [place] [facility] [address] [id number] [place] [address] Feb, [facility] [place] [facility] [address] [id number] [place] [address] January, [facility] [place] [facility] [address] [id number] [place] [address] January, [facility] [place] [facility] [address] [id number] [place] [address] January, [facility] [place] [facility] [address] [id number] [place] [address] Dec, [facility] [address] [facility] [id number] [place] [address] Dec, [facility] [address] [facility] [id number][place] [address] Dec, [facility] [address] [facility] [id number][place] [address] Dec, [facility] [address] [facility] [id number], [place] [address] Dec, [facility] [address] [facility] [id number], [place] [address] Dec, IMMUNIZATIONS No Known Immunizations SOCIAL HISTORY Never Assessed REASON FOR VISIT Hydrocodone- 10-5 PLAN OF CARE VITAL SIGNS MEDICATIONS Medication [...] 04/02/2012 Surgical History appendectomy age 10 at [facility] Surgical History cholecystectomy-[facility] 2007 Surgical History coronary artery bypass graft LAD 02/2012 Surgical History heart cath x2 after bypass, pt has 5 stents Hospitalization History Chest pain, dizziness, renal insuff, heat cath showed CAD ([facility]) 01/03/2012 Hospitalization History CABG ([facility]) Dr. Banks 02/2012
--- OUTSIDE RECORDS SUMMARY | 2019-05-03 09:52 | XMS REPORT ---
Author Author BELEM FUENTES [facility] eClinicalWorks Address Unknown Phone Unavailable Care Team Providers Care Forms Analyst Name Role Phone BELEM FUENTES CP Unavailable Allergies No Known Allergies Problems Problem Type Condition ICD-9 Code Onset Dates Condition Status Problem Coronary atherosclerosis of unspecified type of vessel, [place] or graft 414.00 Active Problem Dizziness and giddiness 780.4 Active Problem Anxiety state, unspecified 300.00 Active Problem Chronic airway obstruction, not elsewhere classified 496 Active Problem Painful respiration 786.52 Active Medications Medication Code System Code Instructions Start Date End Date Status Dosage Lyrica [facility] [address]-51 50 MG Three times a day TAKE ONE CAPSULE BY MOUTH THREE TIMES DAILY FOR FIBROMYALGIA OR IDIOAPATHIC NEUROPATHY Results No Known Results Summary Purpose eClinicalWorks Submission
--- OUTSIDE RECORDS SUMMARY | 2019-05-03 09:52 | XMS REPORT ---
Author Author BELEM FUENTES [facility] eClinicalWorks Address Unknown Phone Unavailable Care Team Providers Care Rope Cutter Name Role Phone BELEM FUENTES CP Unavailable Allergies No Known Allergies Problems Problem Type Condition Code Onset Dates Condition Status Problem Chronic airway obstruction, not elsewhere classified 496 Active Problem Anemia, unspecified type D64.9 Active Problem Chronic kidney disease N18.9 Active Problem Iron deficiency anemia, unspecified iron deficiency anemia type D50.9 Active Problem Anxiety state, unspecified 300.00 Active Problem Coronary atherosclerosis of unspecified type of vessel, [place] or graft 414.00 Active Problem Chest wall pain R07.89 Active Problem Vertigo R42 Active Medications Medication Code System Code Instructions Start Date End Date Status Dosage Hydrocodone-Acetaminophen [facility] [address]-44 7.5-325 MG Orally 5 times per day December 10, 2014 2 tablet Results No Known Results Summary Purpose eClinicalWorks Submission
--- OUTSIDE RECORDS SUMMARY | 2019-05-03 09:52 | XMS REPORT ---
Author Author BELEM FUENTES Organization [facility] Address [address] [place] [address] Care Team Providers Care Arboriculture Instructor Name Role Phone BELEM FUENTES Unavailable PROBLEMS Type Condition ICD9-CM Code [id number] Code Onset Dates Condition Status SNOMED Code Problem Mixed hyperlipidemia E78.2 Active 091311496 Problem Iron deficiency anemia, unspecified iron deficiency anemia type D50.9 Active 28022781 Problem Chronic kidney disease N18.9 Active 478085695 Problem Chest wall pain R07.89 Active 323345125 Problem Anemia, unspecified type D64.9 Active 604013468 Problem Vertigo R42 Active 878691859 ALLERGIES No Information SOCIAL HISTORY Never Assessed [...]
--- OUTSIDE RECORDS SUMMARY | 2019-05-03 09:52 | XMS REPORT ---
Author Author BELEM FUENTES [facility] eClinicalWorks Address Unknown Phone Unavailable Care Team Providers Care Flood Control Engineer Name Role Phone BELEM FUENTES CP Unavailable Allergies No Known Allergies Problems Problem Type Condition Code Onset Dates Condition Status Problem Coronary atherosclerosis of unspecified type of vessel, [place] or graft 414.00 Active Problem Dizziness and giddiness 780.4 Active Problem Anxiety state, unspecified 300.00 Active Problem Chronic airway obstruction, not elsewhere classified 496 Active Problem Painful respiration 786.52 Active Medications Medication Code System Code Instructions Start Date End Date Status Dosage Lyrica [facility] [address]-60 50 MG Three times a day TAKE ONE CAPSULE BY MOUTH THREE TIMES DAILY FOR FIBROMYALGIA OR IDIOAPATHIC NEUROPATHY Results No Known Results Summary Purpose eClinicalWorks Submission
--- OUTSIDE RECORDS SUMMARY | 2019-05-03 09:52 | XMS REPORT ---
Author Author BELEM FUENTES [facility] eClinicalWorks Address Unknown Phone Unavailable Care Team Providers Care Lithograph Press Operator Tinware Name Role Phone BELEM FUENTES CP Unavailable [...] Coronary atherosclerosis of unspecified type of vessel, [place] or graft 414.00 Active Problem Chest wall pain R07.89 Active Problem Vertigo R42 Active Medications Medication Code System Code Instructions Start Date End Date Status Dosage Lyrica [facility] [address]-89 50 mg Three times a day TAKE ONE CAPSULE BY MOUTH THREE TIMES DAILY FOR FIBROMYALGIA OR IDIOAPATHIC NEUROPATHY Results No Known Results Summary Purpose eClinicalWorks Submission
--- OUTSIDE RECORDS SUMMARY | 2019-05-03 09:52 | XMS REPORT ---
Author Author BELEM FUENTES [facility] eClinicalWorks Address Unknown Phone Unavailable Care Team Providers Care Organic Search Lead Name Role Phone BELEM FUENTES CP Unavailable Allergies No Known Allergies Problems Problem Type Condition Code Onset Dates Condition Status Problem Chest wall pain R07.89 Active Problem Vertigo R42 Active Problem Chronic kidney disease N18.9 Active Problem Chronic airway obstruction, not elsewhere classified 496 Active Assessment Pleurodynia R07.81 Active Problem Anxiety state, unspecified 300.00 Active Problem Coronary atherosclerosis of unspecified type of vessel, [place] or graft 414.00 Active Medications Medication Code System Code Instructions Start Date End Date Status Dosage Hydrocodone-Acetaminophen [facility] [address]-02 7.5-325 MG Orally, every 6 hrs December 10, 2014 1-2 tablet as needed Results No Known Results Summary Purpose eClinicalWorks Submission
--- OUTSIDE RECORDS SUMMARY | 2019-05-03 09:52 | XMS REPORT ---
Author Author BELEM FUENTES [facility] eClinicalWorks Address Unknown Phone Unavailable Care Team Providers Care Family Practice Nurse Practitioner Name Role Phone BELEM FUENTES CP Unavailable [...] Coronary atherosclerosis of unspecified type of vessel, [place] or graft 414.00 Active Problem Chest wall pain R07.89 Active Problem Vertigo R42 Active Medications Medication Code System Code Instructions Start Date End Date Status Dosage Hydrocodone-Acetaminophen [facility] [address]-50 7.5-325 MG Orally 5 times per day December 10, 2014 2 tablet Results No Known Results Summary Purpose eClinicalWorks Submission
--- OUTSIDE RECORDS SUMMARY | 2019-05-03 09:52 | XMS REPORT ---
Author Author BELEM FUENTES Organization [facility] Address [address] [place] [address] Care Team Providers Care Instrumentation Specialist Name Role Phone BELEM FUENTES Unavailable PROBLEMS Type Condition ICD9-CM Code [id number] Code Onset Dates Condition Status SNOMED Code Problem Mixed hyperlipidemia E78.2 Active 203058344 Problem Iron deficiency anemia, unspecified iron deficiency anemia type D50.9 Active 38254641 Problem Chronic kidney disease N18.9 Active 027181112 Problem Chest wall pain R07.89 Active 345998987 Problem Anemia, unspecified type D64.9 Active 229300729 Problem Vertigo R42 Active 194773555 ALLERGIES No Information SOCIAL HISTORY Never Assessed PLAN OF CARE VITAL SIGNS MEDICATIONS Unknown Medications RESULTS Name Result Date Reference Range [facility] 2016-12-16 Glucose, Serum 93 65-99 BUN 35 8-27 Creatinine, Serum 1.27 0.76-1.27 eGFR If NonAfricn Am 61 >59 eGFR If Africn Am 71 >59 BUN/Creatinine Ratio 28 10-22 Sodium, Serum 138 134-144 Potassium, Serum 5.6 3.5-5.2 Chloride, Serum 101 96-106 Carbon Dioxide, Total 20 18-29 Calcium, Serum 9.6 8.6-10.2 PROCEDURES Procedure Date Ordered Result Body Site LAB NOT BILLED BY [facility] December 16, 2016 VENIPUNCT, ROUTINE* December 16, 2016 IMMUNIZATIONS No Known Immunizations MEDICAL (GENERAL) [...] dizziness, renal insuff, heat cath showed CAD ([facility]) 01/03/2012 Hospitalization History CABG ([facility]) Dr. Banks 02/2012
--- OUTSIDE RECORDS SUMMARY | 2019-05-03 09:52 | XMS REPORT ---
Author Author BELEM FUENTES Organization [facility] Address [address] [place] [address] Care Team Providers Care Liquified Natural Gas Specialist Name Role Phone BELEM FUENTES Unavailable PROBLEMS Type Condition ICD9-CM Code NXA53-IM Code Onset Dates Condition Status SNOMED Code Problem Mixed hyperlipidemia E78.2 Active 319386215 Problem Iron deficiency anemia, unspecified iron deficiency anemia type D50.9 Active 92748780 Problem Chronic kidney disease N18.9 Active 515519414 Problem Chest wall pain R07.89 Active 955275539 Problem Anemia, unspecified type D64.9 Active 067965920 Problem Vertigo R42 Active 893355686 ALLERGIES No Information SOCIAL HISTORY Never Assessed [...]
--- OUTSIDE RECORDS SUMMARY | 2019-05-03 09:52 | XMS REPORT ---
Author Author BELEM FUENTES [facility] Address [address] [place] [address] Care Team Providers Care Print Line Tailer Name Role Phone BELEM FUENTES Unavailable PROBLEMS Type Condition ICD9-CM Code VKL61-MU Code Onset Dates Condition Status SNOMED Code Problem Mixed hyperlipidemia E78.2 Active 295314138 Problem Iron deficiency anemia, unspecified iron deficiency anemia type D50.9 Active 88924068 Problem Chest wall pain R07.89 Active 354283870 Problem Vertigo R42 Active 527758831 Problem Anemia, unspecified type D64.9 Active 691401421 Problem Chronic kidney disease N18.9 Active 193023309 ALLERGIES Substance Reaction Event Type Date Status Celebrex hot flashes Drug Allergy Aug, Active SOCIAL HISTORY No smoking Hx information available PLAN OF CARE Activity Details Follow Up 3 Months Reason: VITAL SIGNS Height 70 in 2016-09-09 Weight 195.0 lbs 2016-09-09 Temperature 98.0 degrees Fahrenheit 2016-09-09 Heart Rate 78 bpm 2016-09-09 Respiratory Rate 20 2016-09-09 BMI 27.98 kg/m2 2016-09-09 Blood pressure systolic 128 mmHg 2016-09-09 Blood pressure diastolic 76 mmHg 2016-09-09 MEDICATIONS Medication Instructions Dosage Frequency Start Date End Date Duration Status Diclofenac Sodium 75 MG Orally 2 times a day ONE TABLET 12h 30 Active Multivitamin 1 Tablet by Oral route 1 time per day Sep, Active Temazepam 30 MG TAKE ONE CAPSULE BY MOUTH AT BEDTIME NEEDED 30 Active Seroquel 200 MG Orally Once a day 1 tablet 24h 30 Active Aspirin 81 mg take 1 tablet (81 mg) by oral route once daily Nov, Active Citalopram Hydrobromide 20 MG Orally Once a day 1 tablet 24h Active Simvastatin 40 MG TAKE ONE TABLET BY MOUTH DAILY 30 Active PredniSONE 20 MG 2 qd 4d, 1 qd 4d Oct, Active Fish Oil Concentrate 1000 mg 1 Capsule by Oral route 2 times per day Sep, Active Lisinopril 5 mg 1 tablet by Oral route 1 time per day Dec, Active Lyrica 50 mg TAKE ONE CAPSULE BY MOUTH THREE TIMES DAILY FOR FIBROMYALGIA OR IDIOAPATHIC NEUROPATHY 8h Active Hydrocodone-Acetaminophen 7.5-325 MG Orally, must be seen for more refills 5 times per day 2 tablet Nov, Active Restoril 30 MG Orally Once a day 1 capsule at bedtime as needed 24h Oct, Active Acidophilus 100 MG Orally 2-3 times a day until diarrhea resolves 1 capsule Feb, Active RESULTS No Results PROCEDURES Procedure Date Ordered Related Diagnosis Body Site [facility] VISIT ESTABLISHED PATIENT Sep 09, 2016 Office Visit, Est Pt., Level 2 Sep 09, 2016 IMMUNIZATIONS No Known Immunizations
--- OUTSIDE RECORDS SUMMARY | 2019-05-03 09:52 | XMS REPORT ---
Author Author BELEM FUENTES [facility] Address [address] [place] [address] Care Team Providers Care Laminator Name Role Phone BELEM FUENTES Unavailable PROBLEMS Type Condition ICD9-CM Code HER48-SH Code Onset Dates Condition Status SNOMED Code Problem Iron deficiency anemia, unspecified iron deficiency anemia type D50.9 Active 66672607 Problem Anemia, unspecified type D64.9 Active 412535525 Problem Vertigo R42 Active 980081286 Assessment Chest pain on breathing R07.1 Aug, Active 084281213 Problem Chronic kidney disease N18.9 Active 722908296 Problem Chest wall pain R07.89 Active 812809368 ALLERGIES Unknown Allergies SOCIAL HISTORY No smoking Hx information available PLAN OF CARE VITAL SIGNS MEDICATIONS Medication Instructions Dosage Frequency Start Date End Date Duration Status Hydrocodone-Acetaminophen 7.5-325 MG Orally, must be seen for more refills 5 times per day 2 tablet Nov, Active RESULTS No Results PROCEDURES No Known procedures IMMUNIZATIONS No Known Immunizations
--- OUTSIDE RECORDS SUMMARY | 2019-05-03 09:53 | XMS REPORT ---
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 Phone BELEM FUENTES Unavailable PROBLEMS Type Condition ICD9-CM Code SXH17-YV Code Onset Dates Condition Status SNOMED Code Problem Chronic kidney disease N18.9 Active 072310159 Problem Chest wall pain R07.89 Active 994505098 Problem Chronic fatigue R53.82 Active 56839444 Problem Coronary artery disease involving [place] coronary artery of [place] heart without angina pectoris I25.10 Active 2542459851381 Problem Anemia, unspecified type D64.9 Active 118533173 Problem Vertigo R42 Active 486071581 Problem Mixed hyperlipidemia E78.2 Active 165933490 Problem Iron deficiency anemia, unspecified iron deficiency anemia type D50.9 Active 58123691 ALLERGIES No Information ENCOUNTERS Encounter Location Date Diagnosis [place] [id number] [place] [address] January, Chest wall pain R07.89 [place] [id number] [place] [address] Dec, Chest wall pain R07.89 ; Coronary artery disease involving [place] coronary artery of [place] heart without angina pectoris I25.10 and Vertigo R42 [facility] [place] [id number] [place] [address] Dec, Chest wall pain R07.89 [facility] [address] [place] [id number] [place] [address] Nov, Chest wall pain R07.89 [facility] [place] [address] [place] [id number] [place] [address] Oct, Chest wall pain R07.89 [facility] [place] [address] [place] [id number] [place] [address] Sep, Chest wall pain R07.89 and Pleurodynia R07.81 [facility] [place] [address] [place] [address] [id number] [place] [address] Sep, [facility] [place] [address] [place] [address] [id number] [place] [address] Sep, Chest wall pain R07.89 and Sore throat J02.9 [facility] [place] [address] [place] [address] [id number] [place] [address] Sep, [facility] [place] [address] [place] [id number] [place] [address] Sep, Sore throat J02.9 and Acute nasopharyngitis J00 [facility] [place] [address] [place] [id number] [place] [address] Sep, [facility] [place] [address] [place] [id number] [place] [address] Aug, Chest wall pain R07.89 [facility] [place] [address] [place] [address] [id number] [place] [address] Jul, Chest wall pain R07.89 [facility] [place] [address] [place] [id number] [place] [address] Jul, [facility] [place] [address] [place] [id number] [place] [address] Jul, Chest wall pain R07.89 [facility] [place] [address] [place] [address] [id number] [place] [address] Jul, Chest wall pain R07.89 ; Chronic fatigue R53.82 ; Anemia, unspecified type D64.9 ; Vertigo R42 and Coronary artery disease involving [place] coronary artery of [place] heart without angina pectoris I25.10 [facility] [place] [id number] [place] [address] Jun, Chest wall pain R07.89 [facility] [place] [address] [address] Apr, Chest wall pain R07.89 [facility] [place] [address] [place] [id number] [place] [address] Apr, [facility] [place] [id number] [place] [address] Apr, Dental abscess K04.7 [facility] [place] [address] [place] [id number] [place] [address] Apr, [facility] [place] [address] [place] [address] [id number] [place] [address] Apr, Chest wall pain R07.89 [facility] [place] [address] [place] [id number] [place] [address] Mar, Chest wall pain R07.89 [facility] [place] [address] [place] [id number] [place] [address] 15 Feb, 2017 Chest wall pain R07.89 ; Lateral epicondylitis of right elbow M77.11 and Mixed hyperlipidemia E78.2 [facility] [place] [address] [place] [id number] [place] [address] Feb, Chest wall pain R07.89 [facility] [place] [address] [place] [id number] [place] [address] January, [facility] [place] [address] [place] [id number] [place] [address] January, Chest wall pain R07.89 [facility] [place] [address] [place] [address] Dec, Chest wall pain R07.89 [facility] [place] [address] [place] [id number] [place] [address] Nov, [facility] [place] [id number] [place] [address] Nov, Hypokalemia E87.6 [facility] [place] [address] [place] [id number] [place] [address] 23 Nov, 2016 Hypokalemia E87.6 and Iron deficiency anemia, unspecified iron deficiency anemia type D50.9 [facility] [place] [address] [place] [id number] [place] [address] Nov, [facility] [place] [address] [place] [address] [id number] [place] [address] Nov, Nausea R11.0 and Hypovolemia E86.1 [facility] [place] [address] [place] [id number] [place] [address] Nov, [facility] [place] [address] [address] Nov, [facility] [place] [address] [place] [address] [id number] [place] [address] Nov, Chest wall pain R07.89 [facility] [place] [address] [place] [id number] [place] [address] Nov, Bronchitis J40 [facility] [place] [address] [place] [id number] [place] [address] Oct, Chest wall pain R07.89 [facility] [place] [address] [place] [id number] [place] [address] Sep, Chest wall pain R07.89 [facility] [place] [address] [place] [id number] [place] [address] Aug, Chest wall pain R07.89 [facility] [place] [address] [place] [id number] [place] [address] Aug, Chest pain on breathing R07.1 [facility] [place] [address] [place] [id number] [place] [address] Jul, [facility] [place] [address] [place] [id number] [place] [address] Jun, [facility] [place] [address] [place] [address] 16 May, 2016 Chest wall pain R07.89 ; Iron deficiency anemia, unspecified iron deficiency anemia type D50.9 ; Chronic kidney disease N18.9 and Encounter for immunization Z23 [facility] [place] [address] [place] [id number] [place] [address] 09 May, 2016 [facility] [place] [address] [address] Apr, [facility] [place] [address] [address] Mar, [place] [address] [address] Mar, [facility] [place] [address] [address] Feb, [facility] [place] [address] [address] Feb, Iron deficiency anemia, unspecified iron deficiency anemia type D50.9 [facility] [address] [place] [id number] [place] [address] Feb, Dehydration E86.0 ; Diarrhea, unspecified type R19.7 ; Dizziness R42 and Other specified hypotension I95.89 [facility] [place] [address] [place] [id number] [place] [address] Feb, Anemia, unspecified type D64.9 [facility] [place] [address] [place] [id number] [place] [address] January, Anemia, unspecified type D64.9 [place] [address] [place] [id number] [place] [address] January, Paresthesia R20.2 [facility] [place] [address] [place] [id number] [place] [address] January, Chest wall pain R07.89 [facility] [place] [address] [address] Dec, Insomnia G47.00 [facility] [place] [address] [place] [id number] [place] [address] Dec, Chest pain on breathing R07.1 [facility] [place] [address] [place] [id number] [place] [address] Nov, Chest pain on breathing R07.1 [facility] [place] [address] [address] Oct, [facility] [address] [address] Oct, [facility] [place] [address] [address] Oct, Low back pain M54.5 and Chest wall pain R07.89 [facility] [place] [address] [address] Oct, Pleurodynia R07.81 [facility] [address] [place] [id number] [place] [address] Sep, Pleurodynia R07.81 and Other nerve root and plexus disorders G54.8 [facility] [place] [address] [place] [id number] [place] [address] Aug, Chronic kidney disease N18.9 ; Encounter for immunization Z23 ; Chest wall pain R07.89 ; Urinary frequency R35.0 and Vertigo R42 [facility] [place] [address] [place] [id number] [place] [address] Aug, [facility] [address] [address] Jul, [facility] [place] [address] [address] Jul, [facility] [place] [address] [place] [id number] [place] [address] Jun, [facility] [address] [id number], [place] [address] Jun, [facility] [address] [facility] [id number], [place] [address] May, [facility] [address] [facility] [id number], [place] [address] May, [facility] [address] [facility] [id number], [place] [address] May, [facility] [address] [facility] [id number], [place] [address] May, Coronary atherosclerosis of unspecified type of vessel, [place] or graft 414.00 [facility] [address] [facility] [id number], [place] [address] Apr, [facility] [address] [facility] [id number], [place] [address] Apr, [facility] [address] [facility] [id number], [place] [address] Apr, [facility] [address] [facility] [id number], [place] [address] Apr, [facility] [address] [address] Apr, [facility] [address] [facility] [id number], [place] [address] Apr, Coronary atherosclerosis of unspecified type of vessel, [place] or graft 414.00 and Left-sided chest wall pain 786.52 [facility] [address] [facility] [id number], [place] [address] Mar, [facility] [address] [facility] [id number], [place] [address] Mar, [facility] [address] [facility] [id number], [place] [address] Feb, [facility] [address] [place] [id number] [address] Feb, [facility] [address] [id number] [place] [address] January, [facility] [address] [facility] [id number] [place] [address] January, [facility] [address] [facility] [id number] [place] [address] January, [facility] [address] [facility] [id number] [place] [address] January, Neuropathic pain of chest 353.8 [facility] [address] [place] [id number] [place] [address], [place] [address] Dec, [facility] [address] [place] [address] Dec, [facility] [address] [place] [address] Nov, [facility] [address] [facility] [id number][place] [address] Nov, [facility] [address] [place] [address] Nov, [facility] [address] [place] [id number] [address] Nov, [facility] [place] [facility] [address] [place] [id number] [place] [address] Nov, [facility] [address] [facility] [id number] [place] [address] Nov, [facility] [place] [facility] [address] [facility] [id number] [place] [address] Oct, [facility] [place] [facility] [address] [facility] [id number] [place] [address] Oct, [facility] [address] [place] [id number] [place] [address] Oct, [facility] [place] [facility] [address] [id number] [place] [address] Oct, [facility] [place] [facility] [address] [id number] [place] [address] Oct, [facility] [place] [facility] [address] [id number] [place] [address] Oct, [facility] [place] [facility] [address] [id number] [place] [address] Sep, [facility] [place] [facility] [address] [id number] [place] [address] Sep, [facility] [place] [facility] [address] [id number] [place] [address] Sep, [facility] [place] [facility] [address] [id number] [place] [address] Sep, [facility] [place] [facility] [address] [id number] [place] [address] Aug, [facility] [place] [facility] [address] [id number] [place] [address] Aug, [facility] [place] [facility] [address] [id number] [place] [address] Aug, [facility] [place] [facility] [address] [id number] [place] [address] Aug, [facility] [place] [facility] [address] [id number] [place] [address] Aug, [facility] [place] [facility] [address] [id number] [place] [address] Aug, [facility] [place] [facility] [address] [id number] [place] [address] Aug, [facility] [place] [facility] [address] [id number] [place] [address] Aug, [facility] [place] [facility] [address] [id number] [place] [address] Aug, [facility] [place] [facility] [address] [id number] [place] [address] Aug, [facility] [place] [facility] [address] [id number] [place] [address] Jul, [facility] [place] [facility] [address] [id number] [place] [address] Jul, [facility] [place] [facility] [address] [id number] [place] [address] Jul, [facility] [place] [facility] [address] [id number] [place] [address] Jul, [facility] [place] [facility] [address] [id number] [place] [address] Jun, [facility] [place] [facility] [address] [id number] [place] [address] Jun, [facility] [place] [facility] [address] [id number] [place] [address] Jun, [facility] [place] [facility] [address] [id number] [place] [address] Jun, [facility] [place] [facility] [address] [facility] [id number] [place] [address] May, [facility] [place] [facility] [address] [id number] [place] [address] May, [facility] [place] [facility] [address] [id number] [place] [address] May, [facility] [place] [facility] [address] [id number] [place] [address] May, [facility] [place] [facility] [address] [id number] [place] [address] Apr, [facility] [place] [facility] [address] [id number] [place] [address] Apr, [facility] [place] [facility] [address] [id number] [place] [address] Feb, [facility] [place] [facility] [address] [id number] [place] [address] January, [facility] [place] [facility] [address] [id number] [place] [address] January, [facility] [place] [facility] [address] [id number] [place] [address] January, [facility] [address] [id number] [place] [address] January, [facility] [place] [facility] [address] [id number] [place] [address] January, [facility] [address] [id number] [place] [address] January, [facility] [address] [id number] [place] [address] Dec, [facility] [place] [facility] [address] [id number] [place] [address] Dec, [facility] [place] [facility] [address] [id number] [place] [address] Dec, [facility] [place] [facility] [address] [id number] [place] [address] Dec, [facility] [place] [facility] [address] [id number] [place] [address] Dec, [facility] [place] [facility] [address] [id number] [place] [address] Dec, [facility] [place] [facility] [address] [id number] [place] [address] Dec, [facility] [place] [facility] [address] [id number] [place] [address] Dec, [facility] [place] [facility] [address] [id number] [place] [address] Nov, [facility] [place] [facility] [address] [id number] [place] [address] Nov, [facility] [place] [facility] [address] [id number] [place] [address] Nov, [facility] [place] [facility] [address] [id number] [place] [address] Nov, [facility] [place] [facility] [address] [id number] [place] [address] Nov, [facility] [place] [facility] [address] [id number] [place] [address] Nov, [facility] [place] [facility] [address] [id number] [place] [address] Nov, [facility] [place] [facility] [address] [id number] [place] [address] Oct, [facility] [place] [facility] [address] [id number] [place] [address] Oct, [facility] [place] [facility] [address] [id number] [place] [address] Oct, [facility] [place] [facility] [address] [id number] [place] [address] Oct, [facility] [place] [facility] [address] [id number] [place] [address] Sep, [facility] [place] [facility] [address] [id number] [place] [address] Sep, [facility] [place] [facility] [address] [id number] [place] [address] Sep, [facility] [place] [facility] [address] [id number] [place] [address] Sep, [facility] [place] [facility] [address] [id number] [place] [address] Aug, [facility] [place] [facility] [address] [id number] [place] [address] Aug, [facility] [place] [facility] [address] [id number] [place] [address] Jul, [facility] [place] [facility] [address] [id number] [place] [address] Jul, [facility] [place] [facility] [address] [id number] [place] [address] Jun, [facility] [place] [facility] [address] [id number] [place] [address] Jun, [facility] [place] [facility] [address] [id number] [place] [address] Jun, [facility] [place] [facility] [address] [id number] [place] [address] May, [facility] [place] [facility] [address] [id number] [place] [address] Apr, [facility] [place] [facility] [address] [id number] [place] [address] Apr, [facility] [place] [facility] [address] [id number] [place] [address] Mar, [facility] [place] [facility] [address] [id number] [place] [address] Feb, [facility] [place] [facility] [address] [id number] [place] [address] Feb, [facility] [place] [facility] [address] [id number] [place] [address] January, [facility] [place] [facility] [address] [id number] [place] [address] January, [facility] [place] [facility] [address] [id number] [place] [address] Dec, [facility] [place] [facility] [address] [id number] [place] [address] Dec, [facility] [address] [id number] [place] [address] Dec, [facility] [place] [facility] [address] [id number] [place] [address] Dec, [facility] [place] [facility] [address] [id number] [place] [address] Nov, [facility] [place] [facility] [address] [id number] [place] [address] Nov, [facility] [address] [id number] [place] [address] Oct, [facility] [place] [facility] [address] [id number] [place] [address] Oct, [facility] [place] [facility] [address] [id number] [place] [address] Oct, [facility] [place] [facility] [address] [id number] [place] [address] Sep, [facility] [place] [facility] [address] [id number] [place] [address] Sep, [facility] [place] [facility] [address] [id number] [place] [address] Sep, [facility] [place] [facility] [address] [id number] [place] [address] Sep, [facility] [place] [facility] [address] [id number] [place] [address] Sep, [facility] [place] [facility] [address] [id number] [place] [address] Aug, [facility] [place] [facility] [address] [id number] [place] [address] Aug, [facility] [place] [facility] [address] [id number] [place] [address] Aug, [facility] [place] [facility] [address] [id number] [place] [address] 14 Aug, 2012 [facility] [place] [facility] [address] [id number] [place] [address] Jul, [facility] [place] [facility] [address] [id number] [place] [address] Jul, [facility] [address] [id number] [place] [address] Jul, [facility] [place] [facility] [address] [id number] [place] [address] Jul, [facility] [place] [facility] [id number] [place] [address], [place] [address] Jun, [facility] [place] [facility] [address] [id number] [place] [address] Jun, [facility] [place] [facility] [address] [facility] [id number] [place] [address] Jun, [facility] [place] [facility] [address] [id number] [place] [address] Jun, [facility] [place] [facility] [address] [facility] [id number] [place] [address] Jun, [facility] [place] [facility] [address] [facility] [id number] [place] [address] 24 May, 2012 [facility] [place] [facility] [address] [id number] [place] [address] 13 Sep2011 [facility] [place] [facility] [address] [id number] [place] [address] 12 Sep2011 [facility] [place] [facility] [address] [id number] [place] [address] 11 Sep2011 [facility] [place] [facility] [address] [facility] [id number] [place] [address] 10 Sep2011 [facility] [place] [facility] [address] [facility] [id number] [place] [address] May, [facility] [place] [facility] [address] [id number] [place] [address] May, [facility] [place] [facility] [address] [id number] [place] [address] Apr, [facility] [place] [facility] [address] [id number] [place] [address] Apr, [facility] [place] [facility] [address] [id number] [place] [address] Apr, [facility] [place] [facility] [address] [id number] [place] [address] Apr, [facility] [place] [facility] [address] [id number] [place] [address] Apr, [facility] [place] [facility] [address] [id number] [place] [address] Apr, [facility] [place] [facility] [address] [id number] [place] [address] Apr, [facility] [place] [facility] [address] [id number] [place] [address] Apr, [facility] [place] [facility] [address] [id number] [place] [address] Mar, [facility] [place] [facility] [address] [id number] [place] [address] Mar, [facility] [place] [facility] [address] [id number] [place] [address] Mar, [facility] [place] [facility] [address] [id number] [place] [address] Feb, [facility] [place] [facility] [address] [id number] [place] [address] January, [facility] [place] [facility] [address] [id number] [place] [address] January, [facility] [place] [facility] [address] [id number] [place] [address] January, [facility] [place] [address] [facility] [id number] [place] [address] Dec, [facility] [place] [address] [id number] [address] Dec, [facility] [place] [address] [facility] [id number], [place] [address] Dec, [facility] [place] [address] [id number] [address] Dec, [facility] [place] [address] [facility] [id number], [place] [address] Dec, [facility] [place] [address] [id number] [address] Dec, IMMUNIZATIONS No Known Immunizations SOCIAL HISTORY Never Assessed REASON FOR VISIT Hydrocodone 08/24 PLAN OF CARE VITAL SIGNS MEDICATIONS Medication Instructions Dosage Frequency Start Date End Date Duration Status Hydrocodone-Acetaminophen 7.5-325 MG Orally, 5 times per day 2 tablet Jul, 30 days Active RESULTS No Results PROCEDURES [...] Surgical History appendectomy age 10 at [facility] Surgical History cholecystectomy-[facility] [facility] 2007 Surgical History coronary artery bypass graft LAD 02/2012 Surgical History heart cath x2 after bypass, pt has 5 stents Hospitalization History Chest pain, dizziness, renal insuff, heat cath showed CAD ([facility]) 01/03/2012 Hospitalization History CABG ([facility]) Dr. Banks 02/2012
--- OUTSIDE RECORDS SUMMARY | 2019-05-03 09:53 | XMS REPORT ---
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 Active 9923764802724 Problem Anemia, unspecified type D64.9 Active 187433775 Problem Vertigo R42 Active 161352139 Problem Mixed hyperlipidemia E78.2 Active 024493379 Problem Iron deficiency anemia, unspecified iron deficiency anemia type D50.9 Active 97271121 ALLERGIES No Information ENCOUNTERS Encounter Location Date Diagnosis [place] [id number] [place] [address] Feb, Chest wall pain R07.89 [place] [id number] [place] [address] January, Chest wall pain R07.89 [place] [id number] [place] [address] Dec, Chest wall pain R07.89 ; Coronary artery disease involving coushatta coronary artery of coushatta heart without angina pectoris I25.10 and Vertigo R42 [place] [id number] [place] [address] Dec, Chest wall pain R07.89 [place] [id number] [place] [address] Nov, Chest wall pain R07.89 [place] [id number] [place] [address] Oct, Chest wall pain R07.89 [facility] [id number] [place] [address] Sep, Chest wall pain R07.89 and Pleurodynia R07.81 [facility] [id number] [place] [address] Sep, [facility] [id number] [place] [address] Sep, Chest wall pain R07.89 and Sore throat J02.9 [facility] [address] [address] Sep, [facility] [id number] [place] [address] Sep, Sore throat J02.9 and Acute nasopharyngitis J00 [facility] [id number] [place] [address] Sep, [facility] [id number] [place] [address] Aug, Chest wall pain R07.89 [facility] [id number] [place] [address] Jul, Chest wall pain R07.89 [facility] [id number] [place] [address] Jul, [facility] [id number] [place] [address] Jul, Chest wall pain R07.89 [facility] [id number] [place] [address] Jul, Chest wall pain R07.89 ; Chronic fatigue R53.82 ; Anemia, unspecified type D64.9 ; Vertigo R42 and Coronary artery disease involving coushatta coronary artery of coushatta heart without angina pectoris I25.10 [facility] [address] [facility] [id number], [place] [address] Jun, Chest wall pain R07.89 [facility] [address] [facility] [id number] [place] [address] Apr, Chest wall pain R07.89 [facility] [address] [facility] [id number], [place] [address] Apr, [facility] [address] [facility] [id number] [place] [address] Apr, Dental abscess K04.7 [facility] [address] [facility] [id number] [place] [address] Apr, [facility] [id number] [place] [address] Apr, Chest wall pain R07.89 [facility] [id number] [place] [address] Mar, Chest wall pain R07.89 [facility] [id number] [place] [address] Feb, Chest wall pain R07.89 ; Lateral epicondylitis of right elbow M77.11 and Mixed hyperlipidemia E78.2 [facility] [address], [place] [address] Feb, Chest wall pain R07.89 [facility] [id number] [place] [address] January, [facility] [id number] [place] [address] January, Chest wall pain R07.89 [facility] [id number] [place] [address] Dec, Chest wall pain R07.89 [facility] [address] [id number], [place] [address] Nov, [facility] [id number] [place] [address] Nov, Hypokalemia E87.6 [facility] [id number] [place] [address] Nov, Hypokalemia E87.6 and Iron deficiency anemia, unspecified iron deficiency anemia type D50.9 [facility] [id number] [place] [address] Nov, [facility] [id number] [place] [address] Nov, Nausea R11.0 and Hypovolemia E86.1 [facility] [address] [address] Nov, [facility] [id number] [place] [address] Nov, [facility] [id number] [place] [address] Nov, Chest wall pain R07.89 [facility] [id number] [place] [address] Nov, Bronchitis J40 [facility] [id number] [place] [address] Oct, Chest wall pain R07.89 [facility] [id number] [place] [address] Sep, Chest wall pain R07.89 [facility] [id number] [place] [address] Aug, Chest wall pain R07.89 [facility] [id number] [place] [address] Aug, Chest pain on breathing R07.1 [facility] [id number] [place] [address] Jul, [facility] [id number] [place] [address] Jun, [facility] [id number] [place] [address] May, Chest wall pain R07.89 ; Iron deficiency anemia, unspecified iron deficiency anemia type D50.9 ; Chronic kidney disease N18.9 and Encounter for immunization Z23 [facility] [address] [address] May, [facility] [id number] [place] [address] Apr, [place] [address] [address] Mar, [place] [address] [address] Mar, [facility] [id number] [place] [address] Feb, [facility] [id number] [place] [address] Feb, Iron deficiency anemia, unspecified iron deficiency anemia type D50.9 [facility] [id number] [place] [address] Feb, Dehydration E86.0 ; Diarrhea, unspecified type R19.7 ; Dizziness R42 and Other specified hypotension I95.89 [facility] [id number] [place] [address] Feb, Anemia, unspecified type D64.9 [place] [id number] [place] [address] January, Anemia, unspecified type D64.9 [facility] [id number] [place] [address] January, Paresthesia R20.2 [facility] [id number] [place] [address] January, Chest wall pain R07.89 [facility] [id number] [place] [address] Dec, Insomnia G47.00 [facility] [address] [address] Dec, Chest pain on breathing R07.1 [facility] [address] [address] Nov, Chest pain on breathing R07.1 [facility] [address] [address] Oct, [facility] [address] [address] Oct, [facility] [address] [address] Oct, Low back pain M54.5 and Chest wall pain R07.89 [facility] [address] [address] Oct, Pleurodynia R07.81 [facility] [address] [address] Sep, Pleurodynia R07.81 and Other nerve root and plexus disorders G54.8 [facility] [address] [address] Aug, Chronic kidney disease N18.9 ; Encounter for immunization Z23 ; Chest wall pain R07.89 ; Urinary frequency R35.0 and Vertigo R42 [facility] [address] [address] Aug, [facility] [address] [address] Jul, [facility] [address] [address] Jul, [facility] [address] [id number], [place] [address] Jun, [facility] [address] [facility] [id number], [place] [address] Jun, [facility] [address] [facility] [id number], [place] [address] May, [facility] [address] [facility] [id number], [place] [address] May, [facility] [address] [facility] [id number], [place] [address] May, [facility] [address] [facility] [id number], [place] [address] May, Coronary atherosclerosis of unspecified type of vessel, coushatta or graft 414.00 [facility] [address], [place] [address] Apr, [facility] [address] [facility] [id number], [place] [address] Apr, [facility] [address], [place] [address] Apr, [facility] [address], [place] [address] Apr, [facility] [id number], [place] [address] Apr, [facility] [address] [facility] [id number], [place] [address] Apr, Coronary atherosclerosis of unspecified type of vessel, coushatta or graft 414.00 and Left-sided chest wall pain 786.52 [facility] [id number], [place] [address] Mar, [facility] [id number], [place] [address] Mar, [facility] [id number] [place] [address] Feb, [facility] [address] [id number] [place] [address] Feb, [facility] [address] [id number] [place] [address] January, [facility] [address] [id number] [place] [address] January, [facility] [address] [id number] [place] [address] January, [facility] [address] [facility] [id number] [place] [address], [place] [address] January, Neuropathic pain of chest 353.[address] [facility] [address] [facility] [id number] [place] [address] Dec, [facility] [address] [facility] [id number] [place] [address] Dec, [facility] [address] [facility] [id number] [place] [address] Nov, [facility] [address] [facility] [id number] [place] [address] Nov, [facility] [address] [facility] [id number] [place] [address] Nov, [facility] [address] [facility] [id number] [place] [address] Nov, [facility] [address] [facility] [id number] [place] [address] Nov, [facility] [place] [facility] [address] [facility] [id number] [place] [address] Nov, [facility] [place] [facility] [address] [facility] [id number], [place] [address] Oct, [facility] [place] [facility] [address] [facility] [id number], [place] [address] Oct, [facility] [place] [facility] [address] [id number] [place] [address] Oct, [facility] [place] [facility] [address] [id number] [place] [address] Oct, [facility] [place] [facility] [address] [id number] [place] [address] Oct, [facility] [place] [facility] [address] [id number] [place] [address] Oct, [facility] [place] [facility] [address] [id number] [place] [address] Sep, [facility] [place] [facility] [address] [id number] [place] [address] Sep, [facility] [place] [facility] [address] [facility] [id number] [place] [address] Sep, [facility] [place] [facility] [address] [id number] [place] [address] Sep, [facility] [place] [facility] [address] [facility] [id number] [place] [address] Aug, [facility] [place] [facility] [address] [facility] [id number] [place] [address] Aug, [facility] [place] [facility] [address] [facility] [id number] [place] [address] Aug, [facility] [place] [facility] [address] [id number] [place] [address] Aug, [facility] [place] [facility] [address] [id number] [place] [address] Aug, [facility] [place] [facility] [address] [id number] [place] [address] Aug, [facility] [place] [facility] [address] [facility] [id number] [place] [address] Aug, [facility] [place] [facility] [address] [id number] [place] [address] Aug, [facility] [place] [facility] [address] [id number] [place] [address] Aug, [facility] [place] [facility] [address] [id number] [place] [address] Aug, [facility] [place] [facility] [address] [id number] [place] [address] Jul, [facility] [place] [facility] [address] [id number] [place] [address] Jul, [facility] [place] [facility] [address] [id number] [place] [address] Jul, [facility] [place] [facility] [address] [id number] [place] [address] Jul, [facility] [place] [facility] [address] [id number] [place] [address] Jun, [facility] [place] [facility] [address] [id number] [place] [address] Jun, [facility] [place] [facility] [address] [id number] [place] [address] Jun, [facility] [place] [facility] [address] [facility] [id number] [place] [address] Jun, [facility] [place] [facility] [address] [id number] [place] [address] May, [facility] [place] [facility] [address] [id number] [place] [address] May, [facility] [place] [facility] [address] [id number] [place] [address] May, [facility] [place] [facility] [address] [id number] [place] [address] May, [facility] [place] [facility] [address] [id number] [place] [address] Apr, [facility] [place] [facility] [address] [id number] [place] [address] Apr, [facility] [place] [facility] [address] [id number] [place] [address] Feb, [facility] [place] [facility] [address] [id number] [place] [address] January, [facility] [place] [facility] [address] [id number] [place] [address] January, [facility] [place] [facility] [address] [id number] [place] [address] January, [facility] [place] [facility] [address] [id number] [place] [address] January, [facility] [place] [facility] [address] [id number] [place] [address] January, [facility] [place] [facility] [address] [id number] [place] [address] January, [facility] [place] [facility] [address] [id number] [place] [address] Dec, [facility] [place] [facility] [address] [id number] [place] [address] Dec, [facility] [place] [facility] [address] [id number] [place] [address] Dec, [facility] [place] [facility] [address] [id number] [place] [address] Dec, [facility] [place] [facility] [address] [id number] [place] [address] Dec, [facility] [place] [facility] [address] [id number] [place] [address] Dec, [facility] [place] [facility] [address] [id number] [place] [address] Dec, [facility] [place] [facility] [address] [id number] [place] [address] Dec, [facility] [place] [facility] [address] [id number] [place] [address] Nov, [facility] [place] [facility] [address] [id number] [place] [address] Nov, [facility] [place] [facility] [address] [id number] [place] [address] Nov, [facility] [place] [facility] [address] [id number] [place] [address] Nov, [facility] [place] [facility] [address] [id number] [place] [address] Nov, [facility] [place] [facility] [address] [id number] [place] [address] Nov, [facility] [place] [facility] [address] [id number] [place] [address] Nov, [facility] [place] [facility] [address] [id number] [place] [address] Oct, [facility] [place] [facility] [address] [id number] [place] [address] Oct, [facility] [place] [facility] [address] [id number] [place] [address] Oct, [facility] [place] [facility] [address] [id number] [place] [address] Oct, [facility] [place] [facility] [address] [id number] [place] [address] Sep, [facility] [place] [facility] [address] [id number] [place] [address] Sep, [facility] [place] [facility] [address] [id number] [place] [address] Sep, [facility] [place] [facility] [address] [id number] [place] [address] Sep, [facility] [address] [id number] [place] [address] Aug, [facility] [place] [facility] [address] [id number] [place] [address] Aug, [facility] [place] [facility] [address] [id number] [place] [address] Jul, [facility] [place] [facility] [address] [id number] [place] [address] Jul, [facility] [place] [facility] [address] [id number] [place] [address] Jun, [facility] [place] [facility] [address] [id number] [place] [address] Jun, [facility] [place] [facility] [address] [id number] [place] [address] Jun, [facility] [place] [facility] [address] [id number] [place] [address] May, [facility] [place] [facility] [address] [id number] [place] [address] Apr, [facility] [place] [facility] [address] [id number] [place] [address] Apr, [facility] [place] [facility] [address] [id number] [place] [address] Mar, [facility] [place] [facility] [address] [id number], [place] [address] Feb, [facility] [place] [facility] [address] [id number] [place] [address] Feb, [facility] [place] [facility] [address] [id number] [place] [address] January, [facility] [place] [facility] [address] [id number], [place] [address] January, [facility] [place] [facility] [address] [id number], [place] [address] Dec, [facility] [address] [id number] [place] [address] Dec, [facility] [address] [id number] [place] [address] Dec, [facility] [address] [id number] [place] [address] Dec, [facility] [address] [id number] [place] [address] Nov, [facility] [address] [id number] [place] [address] Nov, [facility] [address] [id number] [place] [address] Oct, [facility] [address] [id number] [place] [address] Oct, [facility] [address] [id number] [place] [address] Oct, [facility] [address] [id number] [place] [address] Sep, [facility] [address] [facility] [id number] [place] [address] Sep, [facility] [address] [id number] [place] [address] Sep, [facility] [place] [facility] [address] [id number] [place] [address] Sep, [facility] [place] [facility] [address] [id number] [place] [address] Sep, [facility] [place] [facility] [address] [id number] [place] [address] Aug, [facility] [address] [facility] [id number] [place] [address] Aug, [facility] [place] [facility] [address] [id number] [place] [address] Aug, [facility] [place] [facility] [address] [id number] [place] [address] Aug, [facility] [place] [facility] [address] [id number] [place] [address] Jul, [facility] [place] [facility] [address] [id number] [place] [address] Jul, [facility] [place] [facility] [address] [id number] [place] [address] Jul, [facility] [place] [facility] [address] [id number] [place] [address] Jul, [facility] [place] [facility] [address] [id number] [place] [address] Jun, [facility] [place] [facility] [address] [id number] [place] [address] Jun, [facility] [place] [facility] [address] [id number] [place] [address] Jun, [facility] [place] [facility] [address] [id number] [place] [address] Jun, [facility] [place] [facility] [address] [id number] [place] [address] Jun, [facility] [place] [facility] [address] [id number] [place] [address] 24 May, 2012 [facility] [place] [facility] [address] [id number] [place] [address] 13 Sep2011 [facility] [place] [facility] [address] [id number] [place] [address] 12 May, 2012 [facility] [place] [facility] [address] [id number] [place] [address] 11 May, 2012 [facility] [place] [facility] [address] [id number] [place] [address] May, [facility] [place] [facility] [address] [id number] [place] [address] May, [facility] [place] [facility] [address] [id number] [place] [address] May, [facility] [place] [facility] [address] [id number] [place] [address] Apr, [facility] [place] [facility] [address] [id number] [place] [address] Apr, [facility] [place] [facility] [address] [id number] [place] [address] Apr, [facility] [place] [facility] [address] [id number] [place] [address] Apr, [facility] [place] [facility] [address] [id number] [place] [address] Apr, [facility] [place] [facility] [address] [id number] [place] [address] Apr, [facility] [place] [facility] [address] [id number] [place] [address] Apr, [facility] [place] [facility] [address] [id number] [place] [address] Apr, [facility] [place] [facility] [address] [id number] [place] [address] Mar, [facility] [place] [facility] [address] [id number] [place] [address] Mar, [facility] [place] [facility] [address] [id number] [place] [address] Mar, [facility] [place] [facility] [address] [id number] [place] [address] Feb, [facility] [place] [facility] [address] [id number] [place] [address] January, [facility] [place] [facility] [address] [id number], [place] [address] January, [facility] [id number], [place] [address] January, [facility] [id number], [place] [address] Dec, [facility] [id number], [place] [address] Dec, [facility] [id number], [place] [address] Dec, [facility] [id number], [place] [address] Dec, [facility] [address] [id number] [address] Dec, [facility] [id number], [place] [address] Dec, IMMUNIZATIONS No Known Immunizations SOCIAL HISTORY Never Assessed REASON FOR VISIT Hydrocodone and Temazepam- 10/23 PLAN OF CARE VITAL SIGNS MEDICATIONS Medication Instructions Dosage Frequency Start Date End Date Duration Status Temazepam 30 MG TAKE ONE CAPSULE BY MOUTH AT BEDTIME NEEDED 30 Active Hydrocodone-Acetaminophen 7.5-325 MG Orally, 5 times per day 2 tablet Sep, 30 days Active RESULTS No Results PROCEDURES [...] 04/02/2012 Surgical History appendectomy age 10 at [facility] Surgical History cholecystectomy-[facility] 2007 Surgical History coronary artery bypass graft LAD 02/2012 Surgical History heart cath x2 after bypass, pt has 5 stents Hospitalization History Chest pain, dizziness, renal insuff, heat cath showed CAD ([facility]) 01/03/2012 Hospitalization History CABG ([facility]) Dr. Banks 02/2012
--- OUTSIDE RECORDS SUMMARY | 2019-05-03 09:54 | XMS REPORT ---
Author Author BEELM FUENTES Organization [facility] Address [address] [place] [address] Care Team Providers Care Rock Singer Name Role Phone BELEM FUENTES Unavailable PROBLEMS Type Condition ICD9-CM Code CTB28-HG Code Onset Dates Condition Status SNOMED Code Problem Chronic kidney disease N18.9 Active 908544615 Problem Chest wall pain R07.89 Active 384077636 Problem Chronic fatigue R53.82 Active 97201657 Problem Coronary artery disease involving [place] coronary artery of [place] heart without angina pectoris I25.10 Active 4410063910964 Problem Anemia, unspecified type D64.9 Active 207018144 Problem Vertigo R42 Active 151369575 Problem Mixed hyperlipidemia E78.2 Active 776813461 Problem Iron deficiency anemia, unspecified iron deficiency anemia type D50.9 Active 78245872 ALLERGIES No Information ENCOUNTERS Encounter Location Date Diagnosis [place] [id number] [place] [address] Feb, Chest wall pain R07.89 [place] [id number] [place] [address] January, Chest wall pain R07.89 [place] [id number] [place] [address] Dec, Chest wall pain R07.89 ; Coronary artery disease involving [place] coronary artery of [place] heart without angina pectoris I25.10 and Vertigo R42 [place] [id number] [place] [address] Dec, Chest wall pain R07.89 [place] [id number] [place] [address] Nov, Chest wall pain R07.89 [place] [id number] [place] [address] Oct, Chest wall pain R07.89 [facility] [id number] [place] [address] Sep, Chest wall pain R07.89 and Pleurodynia R07.81 [facility] [id number] [place] [address] Sep, [facility] [id number] [place] [address] Sep, Chest wall pain R07.89 and Sore throat J02.9 [facility] [address] [address] Sep, [facility] [id number] [place] [address] Sep, Sore throat J02.9 and Acute nasopharyngitis J00 [facility] [id number] [place] [address] Sep, [facility] [id number] [place] [address] Aug, Chest wall pain R07.89 [facility] [id number] [place] [address] Jul, Chest wall pain R07.89 [facility] [id number] [place] [address] Jul, [facility] [id number] [place] [address] Jul, Chest wall pain R07.89 [facility] [id number] [place] [address] Jul, Chest wall pain R07.89 ; Chronic fatigue R53.82 ; Anemia, unspecified type D64.9 ; Vertigo R42 and Coronary artery disease involving [place] coronary artery of [place] heart without angina pectoris I25.10 [facility] [address] [facility] [id number], [place] [address] Jun, Chest wall pain R07.89 [facility] [address] [facility] [id number] [place] [address] Apr, Chest wall pain R07.89 [facility] [address] [facility] [id number], [place] [address] Apr, [facility] [address] [facility] [id number] [place] [address] Apr, Dental abscess K04.7 [facility] [address] [facility] [id number] [place] [address] Apr, [facility] [id number] [place] [address] Apr, Chest wall pain R07.89 [facility] [id number] [place] [address] Mar, Chest wall pain R07.89 [facility] [id number] [place] [address] Feb, Chest wall pain R07.89 ; Lateral epicondylitis of right elbow M77.11 and Mixed hyperlipidemia E78.2 [facility] [address] [address] Feb, Chest wall pain R07.89 [facility] [id number] [place] [address] January, [facility] [id number] [place] [address] January, Chest wall pain R07.89 [facility] [id number] [place] [address] Dec, Chest wall pain R07.89 [facility] [address] [id number], [place] [address] Nov, [facility] [id number] [place] [address] Nov, Hypokalemia E87.6 [facility] [id number] [place] [address] Nov, Hypokalemia E87.6 and Iron deficiency anemia, unspecified iron deficiency anemia type D50.9 [facility] [id number] [place] [address] Nov, [facility] [id number] [place] [address] Nov, Nausea R11.0 and Hypovolemia E86.1 [facility] [address] [address] Nov, [facility] [id number] [place] [address] Nov, [facility] [id number] [place] [address] Nov, Chest wall pain R07.89 [facility] [id number] [place] [address] Nov, Bronchitis J40 [facility] [id number] [place] [address] Oct, Chest wall pain R07.89 [facility] [id number] [place] [address] Sep, Chest wall pain R07.89 [facility] [id number] [place] [address] Aug, Chest wall pain R07.89 [facility] [id number] [place] [address] Aug, Chest pain on breathing R07.1 [facility] [id number] [place] [address] Jul, [facility] [id number] [place] [address] Jun, [facility] [id number] [place] [address] May, Chest wall pain R07.89 ; Iron deficiency anemia, unspecified iron deficiency anemia type D50.9 ; Chronic kidney disease N18.9 and Encounter for immunization Z23 [facility] [address] [address] May, [facility] [id number] [place] [address] Apr, [place] [address] [address] Mar, [place] [address] [address] Mar, [facility] [id number] [place] [address] Feb, [facility] [id number] [place] [address] Feb, Iron deficiency anemia, unspecified iron deficiency anemia type D50.9 [facility] [id number] [place] [address] Feb, Dehydration E86.0 ; Diarrhea, unspecified type R19.7 ; Dizziness R42 and Other specified hypotension I95.89 [facility] [id number] [place] [address] Feb, Anemia, unspecified type D64.9 [place] [id number] [place] [address] January, Anemia, unspecified type D64.9 [facility] [id number] [place] [address] January, Paresthesia R20.2 [facility] [id number] [place] [address] January, Chest wall pain R07.89 [facility] [id number] [place] [address] Dec, Insomnia G47.00 [facility] [address] [address] Dec, Chest pain on breathing R07.1 [facility] [address] [address] Nov, Chest pain on breathing R07.1 [facility] [address] [address] Oct, [facility] [address] [address] Oct, [facility] [address] [address] Oct, Low back pain M54.5 and Chest wall pain R07.89 [facility] [address] [address] Oct, Pleurodynia R07.81 [facility] [address] [address] Sep, Pleurodynia R07.81 and Other nerve root and plexus disorders G54.8 [facility] [address] [address] Aug, Chronic kidney disease N18.9 ; Encounter for immunization Z23 ; Chest wall pain R07.89 ; Urinary frequency R35.0 and Vertigo R42 [facility] [address] [address] Aug, [facility] [address] [address] Jul, [facility] [address] [address] Jul, [facility] [address] [id number], [place] [address] Jun, [facility] [address] [facility] [id number], [place] [address] Jun, [facility] [address] [facility] [id number], [place] [address] May, [facility] [address] [facility] [id number], [place] [address] May, [facility] [address] [facility] [id number], [place] [address] May, [facility] [address] [facility] [id number], [place] [address] May, Coronary atherosclerosis of unspecified type of vessel, [place] or graft 414.00 [facility] [address], [place] [address] Apr, [facility] [address] [facility] [id number], [place] [address] Apr, [facility] [address], [place] [address] Apr, [facility] [address], [place] [address] Apr, [facility] [id number] [address] Apr, [facility] [address] [facility] [id number], [place] [address] Apr, Coronary atherosclerosis of unspecified type of vessel, [place] or graft 414.00 and Left-sided chest wall pain 786.52 [facility] [id number], [place] [address] Mar, [facility] [id number], [place] [address] Mar, [facility] [id number] [address] Feb, [facility] [address] [id number] [place] [address] Feb, [facility] [address] [id number] [place] [address] January, [facility] [address] [id number] [place] [address] January, [facility] [address] [id number] [place] [address] January, [facility] [address] [facility] [id number] [place] [address], [place] [address] January, Neuropathic pain of chest 353.8 [facility] [address] [facility] [id number] [place] [address] Dec, [facility] [address] [facility] [id number] [place] [address] Dec, [facility] [address] [facility] [id number] [place] [address] Nov, [facility] [address] [facility] [id number] [place] [address] Nov, [facility] [address] [facility] [id number] [place] [address] Nov, [facility] [address] [facility] [id number] [place] [address] Nov, [facility] [address] [facility] [id number] [place] [address] Nov, [facility] [place] [facility] [address] [facility] [id number] [place] [address] Nov, [facility] [place] [facility] [address] [facility] [id number], [place] [address] Oct, [facility] [place] [facility] [address] [facility] [id number], [place] [address] Oct, [facility] [place] [facility] [address] [id number] [place] [address] Oct, [facility] [place] [facility] [address] [id number] [place] [address] Oct, [facility] [place] [facility] [address] [id number] [place] [address] Oct, [facility] [place] [facility] [address] [id number] [place] [address] Oct, [facility] [place] [facility] [address] [id number] [place] [address] Sep, [facility] [place] [facility] [address] [id number] [place] [address] Sep, [facility] [place] [facility] [address] [facility] [id number] [place] [address] Sep, [facility] [place] [facility] [address] [id number] [place] [address] Sep, [facility] [place] [facility] [address] [facility] [id number] [place] [address] Aug, [facility] [place] [facility] [address] [facility] [id number] [place] [address] Aug, [facility] [place] [facility] [address] [facility] [id number] [place] [address] Aug, [facility] [place] [facility] [address] [id number] [place] [address] Aug, [facility] [place] [facility] [address] [id number] [place] [address] Aug, [facility] [place] [facility] [address] [id number] [place] [address] Aug, [facility] [place] [facility] [address] [facility] [id number] [place] [address] Aug, [facility] [place] [facility] [address] [id number] [place] [address] Aug, [facility] [place] [facility] [address] [id number] [place] [address] Aug, [facility] [place] [facility] [address] [id number] [place] [address] Aug, [facility] [place] [facility] [address] [id number] [place] [address] Jul, [facility] [place] [facility] [address] [id number] [place] [address] Jul, [facility] [place] [facility] [address] [id number] [place] [address] Jul, [facility] [place] [facility] [address] [id number] [place] [address] Jul, [facility] [place] [facility] [address] [id number] [place] [address] Jun, [facility] [place] [facility] [address] [id number] [place] [address] Jun, [facility] [place] [facility] [address] [id number] [place] [address] Jun, [facility] [place] [facility] [address] [facility] [id number] [place] [address] Jun, [facility] [place] [facility] [address] [id number] [place] [address] May, [facility] [place] [facility] [address] [id number] [place] [address] May, [facility] [place] [facility] [address] [id number] [place] [address] May, [facility] [place] [facility] [address] [id number] [place] [address] May, [facility] [place] [facility] [address] [id number] [place] [address] Apr, [facility] [place] [facility] [address] [id number] [place] [address] Apr, [facility] [place] [facility] [address] [id number] [place] [address] Feb, [facility] [place] [facility] [address] [id number] [place] [address] January, [facility] [place] [facility] [address] [id number] [place] [address] January, [facility] [place] [facility] [address] [id number] [place] [address] January, [facility] [place] [facility] [address] [id number] [place] [address] January, [facility] [place] [facility] [address] [id number] [place] [address] January, [facility] [place] [facility] [address] [id number] [place] [address] January, [facility] [place] [facility] [address] [id number] [place] [address] Dec, [facility] [place] [facility] [address] [id number] [place] [address] Dec, [facility] [place] [facility] [address] [id number] [place] [address] Dec, [facility] [place] [facility] [address] [id number] [place] [address] Dec, [facility] [place] [facility] [address] [id number] [place] [address] Dec, [facility] [place] [facility] [address] [id number] [place] [address] Dec, [facility] [place] [facility] [address] [id number] [place] [address] Dec, [facility] [place] [facility] [address] [id number] [place] [address] Dec, [facility] [place] [facility] [address] [id number] [place] [address] Nov, [facility] [place] [facility] [address] [id number] [place] [address] Nov, [facility] [place] [facility] [address] [id number] [place] [address] Nov, [facility] [place] [facility] [address] [id number] [place] [address] Nov, [facility] [place] [facility] [address] [id number] [place] [address] Nov, [facility] [place] [facility] [address] [id number] [place] [address] Nov, [facility] [place] [facility] [address] [id number] [place] [address] Nov, [facility] [place] [facility] [address] [id number] [place] [address] Oct, [facility] [place] [facility] [address] [id number] [place] [address] Oct, [facility] [place] [facility] [address] [id number] [place] [address] Oct, [facility] [place] [facility] [address] [id number] [place] [address] Oct, [facility] [place] [facility] [address] [id number] [place] [address] Sep, [facility] [place] [facility] [address] [id number] [place] [address] Sep, [facility] [place] [facility] [address] [id number] [place] [address] Sep, [facility] [place] [facility] [address] [id number] [place] [address] Sep, [facility] [address] [id number] [place] [address] Aug, [facility] [place] [facility] [address] [id number] [place] [address] Aug, [facility] [place] [facility] [address] [id number] [place] [address] Jul, [facility] [place] [facility] [address] [id number] [place] [address] Jul, [facility] [place] [facility] [address] [id number] [place] [address] Jun, [facility] [place] [facility] [address] [id number] [place] [address] Jun, [facility] [place] [facility] [address] [id number] [place] [address] Jun, [facility] [place] [facility] [address] [id number] [place] [address] May, [facility] [place] [facility] [address] [id number] [place] [address] Apr, [facility] [place] [facility] [address] [id number] [place] [address] Apr, [facility] [place] [facility] [address] [id number] [place] [address] Mar, [facility] [place] [facility] [address] [id number], [place] [address] Feb, [facility] [place] [facility] [address] [id number] [place] [address] Feb, [facility] [place] [facility] [address] [id number] [place] [address] January, [facility] [place] [facility] [address] [id number], [place] [address] January, [facility] [place] [facility] [address] [id number], [place] [address] Dec, [facility] [address] [id number] [place] [address] Dec, [facility] [address] [id number] [place] [address] Dec, [facility] [address] [id number] [place] [address] Dec, [facility] [address] [id number] [place] [address] Nov, [facility] [address] [id number] [place] [address] Nov, [facility] [address] [id number] [place] [address] Oct, [facility] [address] [id number] [place] [address] Oct, [facility] [address] [id number] [place] [address] Oct, [facility] [address] [id number] [place] [address] Sep, [facility] [address] [facility] [id number] [place] [address] Sep, [facility] [address] [id number] [place] [address] Sep, [facility] [place] [facility] [address] [id number] [place] [address] Sep, [facility] [place] [facility] [address] [id number] [place] [address] Sep, [facility] [place] [facility] [address] [id number] [place] [address] Aug, [facility] [address] [facility] [id number] [place] [address] Aug, [facility] [place] [facility] [address] [id number] [place] [address] Aug, [facility] [place] [facility] [address] [id number] [place] [address] Aug, [facility] [place] [facility] [address] [id number] [place] [address] Jul, [facility] [place] [facility] [address] [id number] [place] [address] Jul, [facility] [place] [facility] [address] [id number] [place] [address] Jul, [facility] [place] [facility] [address] [id number] [place] [address] Jul, [facility] [place] [facility] [address] [id number] [place] [address] Jun, [facility] [place] [facility] [address] [id number] [place] [address] Jun, [facility] [place] [facility] [address] [id number] [place] [address] Jun, [facility] [place] [facility] [address] [id number] [place] [address] Jun, [facility] [place] [facility] [address] [id number] [place] [address] Jun, [facility] [place] [facility] [address] [id number] [place] [address] 24 May, 2012 [facility] [place] [facility] [address] [id number] [place] [address] 13 Sep2011 [facility] [place] [facility] [address] [id number] [place] [address] 12 May, 2012 [facility] [place] [facility] [address] [id number] [place] [address] 11 May, 2012 [facility] [place] [facility] [address] [id number] [place] [address] May, [facility] [place] [facility] [address] [id number] [place] [address] May, [facility] [place] [facility] [address] [id number] [place] [address] May, [facility] [place] [facility] [address] [id number] [place] [address] Apr, [facility] [place] [facility] [address] [id number] [place] [address] Apr, [facility] [place] [facility] [address] [id number] [place] [address] Apr, [facility] [place] [facility] [address] [id number] [place] [address] Apr, [facility] [place] [facility] [address] [id number] [place] [address] Apr, [facility] [place] [facility] [address] [id number] [place] [address] Apr, [facility] [place] [facility] [address] [id number] [place] [address] Apr, [facility] [place] [facility] [address] [id number] [place] [address] Apr, [facility] [place] [facility] [address] [id number] [place] [address] Mar, [facility] [place] [facility] [address] [id number] [place] [address] Mar, [facility] [place] [facility] [address] [id number] [place] [address] Mar, [facility] [place] [facility] [address] [id number] [place] [address] Feb, [facility] [place] [facility] [address] [id number] [place] [address] January, [facility] [place] [facility] [address] [id number], [place] [address] January, [facility] [address] [id number], [place] [address] January, [facility] [id number], [place] [address] Dec, [facility] [id number], [place] [address] Dec, [facility] [id number], [place] [address] Dec, [facility] [id number], [place] [address] Dec, [facility] [id number] [place] [address] Dec, [facility] [id number], [place] [address] Dec, IMMUNIZATIONS No Known Immunizations SOCIAL HISTORY Never Assessed REASON FOR VISIT Requests return call PLAN OF CARE VITAL SIGNS MEDICATIONS Medication Instructions Dosage Frequency Start Date End Date Duration Status SudoGest 60 mg Orally every 6 hrs 1 tablet as needed 6h Sep, 05 days Active RESULTS No Results PROCEDURES No [...] 04/02/2012 Surgical History appendectomy age 10 at [facility] Surgical History cholecystectomy-[facility] 2007 Surgical History coronary artery bypass graft LAD 02/2012 Surgical History heart cath x2 after bypass, pt has 5 stents Hospitalization History Chest pain, dizziness, renal insuff, heat cath showed CAD ([facility]) 01/03/2012 Hospitalization History CABG ([facility]) Dr. Banks 02/2012
--- OUTSIDE RECORDS SUMMARY | 2019-05-03 09:55 | XMS REPORT ---
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 Active 9768714211383 Problem Anemia, unspecified type D64.9 Active 026180309 Problem Vertigo R42 Active 169267132 Problem Mixed hyperlipidemia E78.2 Active 592973870 Problem Iron deficiency anemia, unspecified iron deficiency anemia type D50.9 Active 32850747 ALLERGIES No Information ENCOUNTERS Encounter Location Date Diagnosis [place] [id number] [place] [address] Feb, Chest wall pain R07.89 [place] [id number] [place] [address] January, Chest wall pain R07.89 [facility] [id number] [place] [address] Dec, Chest wall pain R07.89 ; Coronary artery disease involving chickaloon coronary artery of chickaloon heart without angina pectoris I25.10 and Vertigo R42 [facility] [id number] [place] [address] Dec, Chest wall pain R07.89 [facility] [id number] [place] [address] Nov, Chest wall pain R07.89 [place] [address] [place] [id number] [place] [address] Oct, Chest wall pain R07.89 [facility] [id number] [place] [address] Sep, Chest wall pain R07.89 and Pleurodynia R07.81 [facility] [id number] [place] [address] Sep, [facility] [id number] [place] [address] Sep, Chest wall pain R07.89 and Sore throat J02.9 [facility] [address] [address] Sep, [facility] [id number] [place] [address] Sep, Sore throat J02.9 and Acute nasopharyngitis J00 [facility] [id number] [place] [address] Sep, [facility] [id number] [place] [address] Aug, Chest wall pain R07.89 [facility] [id number] [place] [address] Jul, Chest wall pain R07.89 [facility] [id number] [place] [address] Jul, [facility] [id number] [place] [address] Jul, Chest wall pain R07.89 [facility] [id number] [place] [address] Jul, Chest wall pain R07.89 ; Chronic fatigue R53.82 ; Anemia, unspecified type D64.9 ; Vertigo R42 and Coronary artery disease involving chickaloon coronary artery of chickaloon heart without angina pectoris I25.10 [facility] [address] [facility] [id number] [address] Jun, Chest wall pain R07.89 [facility] [address] [facility] [id number] [place] [address] Apr, Chest wall pain R07.89 [facility] [address] [facility] [id number], [place] [address] Apr, [facility] [address] [facility] [id number] [place] [address] Apr, Dental abscess K04.7 [facility] [address] [facility] [id number] [place] [address] Apr, [facility] [id number] [place] [address] Apr, Chest wall pain R07.89 [facility] [id number] [place] [address] Mar, Chest wall pain R07.89 [facility] [id number] [place] [address] Feb, Chest wall pain R07.89 ; Lateral epicondylitis of right elbow M77.11 and Mixed hyperlipidemia E78.2 [facility] [id number] [address] Feb, Chest wall pain R07.89 [facility] [id number] [place] [address] January, [facility] [id number] [place] [address] January, Chest wall pain R07.89 [facility] [id number] [place] [address] Dec, Chest wall pain R07.89 [facility] [address] [id number] [address] Nov, [facility] [id number] [place] [address] Nov, Hypokalemia E87.6 [facility] [id number] [place] [address] Nov, Hypokalemia E87.6 and Iron deficiency anemia, unspecified iron deficiency anemia type D50.9 [facility] [id number] [place] [address] Nov, [facility] [id number] [place] [address] Nov, Nausea R11.0 and Hypovolemia E86.1 [facility] [address] [address] Nov, [facility] [id number] [place] [address] Nov, [facility] [id number] [place] [address] Nov, Chest wall pain R07.89 [facility] [id number] [place] [address] Nov, Bronchitis J40 [facility] [id number] [place] [address] Oct, Chest wall pain R07.89 [facility] [id number] [place] [address] Sep, Chest wall pain R07.89 [facility] [id number] [place] [address] Aug, Chest wall pain R07.89 [facility] [id number] [place] [address] Aug, Chest pain on breathing R07.1 [facility] [id number] [place] [address] Jul, [facility] [id number] [place] [address] Jun, [facility] [id number] [place] [address] May, Chest wall pain R07.89 ; Iron deficiency anemia, unspecified iron deficiency anemia type D50.9 ; Chronic kidney disease N18.9 and Encounter for immunization Z23 [facility] [address] [address] May, [facility] [id number] [place] [address] Apr, [place] [address] [address] Mar, [place] [address] [address] Mar, [facility] [id number] [place] [address] Feb, [facility] [id number] [place] [address] Feb, Iron deficiency anemia, unspecified iron deficiency anemia type D50.9 [facility] [id number] [place] [address] Feb, Dehydration E86.0 ; Diarrhea, unspecified type R19.7 ; Dizziness R42 and Other specified hypotension I95.89 [facility] [id number] [place] [address] Feb, Anemia, unspecified type D64.9 [place] [id number] [place] [address] January, Anemia, unspecified type D64.9 [facility] [id number] [place] [address] January, Paresthesia R20.2 [facility] [id number] [place] [address] January, Chest wall pain R07.89 [facility] [id number] [place] [address] Dec, Insomnia G47.00 [facility] [address] [address] Dec, Chest pain on breathing R07.1 [facility] [address] [address] Nov, Chest pain on breathing R07.1 [facility] [address] [address] Oct, [facility] [address] [address] Oct, [facility] [address] [address] Oct, Low back pain M54.5 and Chest wall pain R07.89 [facility] [address] [address] Oct, Pleurodynia R07.81 [facility] [address] [address] Sep, Pleurodynia R07.81 and Other nerve root and plexus disorders G54.8 [facility] [address] [address] Aug, Chronic kidney disease N18.9 ; Encounter for immunization Z23 ; Chest wall pain R07.89 ; Urinary frequency R35.0 and Vertigo R42 [facility] [address] [address] Aug, [facility] [address] [address] Jul, [facility] [address] [address] Jul, [facility] [address] [id number], [place] [address] Jun, [facility] [address] [facility] [id number], [place] [address] Jun, [facility] [address] [facility] [id number], [place] [address] May, [facility] [address] [facility] [id number], [place] [address] May, [facility] [address] [facility] [id number], [place] [address] May, [facility] [address] [facility] [id number], [place] [address] May, Coronary atherosclerosis of unspecified type of vessel, chickaloon or graft 414.00 [facility] [address] [address] Apr, [facility] [address] [facility] [id number], [place] [address] Apr, [facility] [address], [place] [address] Apr, [facility] [address], [place] [address] Apr, [facility] [address] [id number] [address] Apr, [facility] [address] [facility] [id number], [place] [address] Apr, Coronary atherosclerosis of unspecified type of vessel, chickaloon or graft 414.00 and Left-sided chest wall pain 786.52 [facility] [id number] [address] Mar, [facility] [id number] [address] Mar, [facility] [id number] [address] Feb, [facility] [address] [id number] [place] [address] Feb, [facility] [address] [id number] [place] [address] January, [facility] [address] [id number] [place] [address] January, [facility] [address] [id number] [place] [address] January, [facility] [address] [facility] [id number] [place] [address], [place] [address] January, Neuropathic pain of chest 353.8 [facility] [address] [facility] [id number] [place] [address] Dec, [facility] [address] [facility] [id number] [place] [address] Dec, [facility] [address] [facility] [id number] [place] [address] Nov, [facility] [address] [facility] [id number] [place] [address] Nov, [facility] [address] [facility] [id number] [place] [address] Nov, [facility] [address] [facility] [id number] [place] [address] Nov, [facility] [address] [facility] [id number] [place] [address] Nov, [facility] [place] [facility] [address] [facility] [id number] [place] [address] Nov, [facility] [place] [facility] [address] [facility] [id number], [place] [address] Oct, [facility] [place] [facility] [address] [facility] [id number], [place] [address] Oct, [facility] [place] [facility] [address] [id number] [place] [address] Oct, [facility] [place] [facility] [address] [id number] [place] [address] Oct, [facility] [place] [facility] [address] [id number] [place] [address] Oct, [facility] [place] [facility] [address] [id number] [place] [address] Oct, [facility] [place] [facility] [address] [id number] [place] [address] Sep, [facility] [place] [facility] [address] [id number] [place] [address] Sep, [facility] [place] [facility] [address] [facility] [id number] [place] [address] Sep, [facility] [place] [facility] [address] [id number] [place] [address] Sep, [facility] [place] [facility] [address] [facility] [id number] [place] [address] Aug, [facility] [place] [facility] [address] [facility] [id number] [place] [address] Aug, [facility] [place] [facility] [address] [facility] [id number] [place] [address] Aug, [facility] [place] [facility] [address] [id number] [place] [address] Aug, [facility] [place] [facility] [address] [id number] [place] [address] Aug, [facility] [place] [facility] [address] [id number] [place] [address] Aug, [facility] [place] [facility] [address] [facility] [id number] [place] [address] Aug, [facility] [place] [facility] [address] [id number] [place] [address] Aug, [facility] [place] [facility] [address] [id number] [place] [address] Aug, [facility] [place] [facility] [address] [id number] [place] [address] Aug, [facility] [place] [facility] [address] [id number] [place] [address] Jul, [facility] [place] [facility] [address] [id number] [place] [address] Jul, [facility] [place] [facility] [address] [id number] [place] [address] Jul, [facility] [place] [facility] [address] [id number] [place] [address] Jul, [facility] [place] [facility] [address] [id number] [place] [address] Jun, [facility] [place] [facility] [address] [id number] [place] [address] Jun, [facility] [place] [facility] [address] [id number] [place] [address] Jun, [facility] [place] [facility] [address] [facility] [id number] [place] [address] Jun, [facility] [place] [facility] [address] [id number] [place] [address] May, [facility] [place] [facility] [address] [id number] [place] [address] May, [facility] [place] [facility] [address] [id number] [place] [address] May, [facility] [place] [facility] [address] [id number] [place] [address] May, [facility] [place] [facility] [address] [id number] [place] [address] Apr, [facility] [place] [facility] [address] [id number] [place] [address] Apr, [facility] [place] [facility] [address] [id number] [place] [address] Feb, [facility] [place] [facility] [address] [id number] [place] [address] January, [facility] [place] [facility] [address] [id number] [place] [address] January, [facility] [place] [facility] [address] [id number] [place] [address] January, [facility] [place] [facility] [address] [id number] [place] [address] January, [facility] [place] [facility] [address] [id number] [place] [address] January, [facility] [place] [facility] [address] [id number] [place] [address] January, [facility] [place] [facility] [address] [id number] [place] [address] Dec, [facility] [place] [facility] [address] [id number] [place] [address] Dec, [facility] [place] [facility] [address] [id number] [place] [address] Dec, [facility] [place] [facility] [address] [id number] [place] [address] Dec, [facility] [place] [facility] [address] [id number] [place] [address] Dec, [facility] [place] [facility] [address] [id number] [place] [address] Dec, [facility] [place] [facility] [address] [id number] [place] [address] Dec, [facility] [place] [facility] [address] [id number] [place] [address] Dec, [facility] [place] [facility] [address] [id number] [place] [address] Nov, [facility] [place] [facility] [address] [id number] [place] [address] Nov, [facility] [place] [facility] [address] [id number] [place] [address] Nov, [facility] [place] [facility] [address] [id number] [place] [address] Nov, [facility] [place] [facility] [address] [id number] [place] [address] Nov, [facility] [place] [facility] [address] [id number] [place] [address] Nov, [facility] [place] [facility] [address] [id number] [place] [address] Nov, [facility] [place] [facility] [address] [id number] [place] [address] Oct, [facility] [place] [facility] [address] [id number] [place] [address] Oct, [facility] [place] [facility] [address] [id number] [place] [address] Oct, [facility] [place] [facility] [address] [id number] [place] [address] Oct, [facility] [place] [facility] [address] [id number] [place] [address] Sep, [facility] [place] [facility] [address] [id number] [place] [address] Sep, [facility] [place] [facility] [address] [id number] [place] [address] Sep, [facility] [place] [facility] [address] [id number] [place] [address] Sep, [facility] [address] [id number] [place] [address] Aug, [facility] [place] [facility] [address] [id number] [place] [address] Aug, [facility] [place] [facility] [address] [id number] [place] [address] Jul, [facility] [place] [facility] [address] [id number] [place] [address] Jul, [facility] [place] [facility] [address] [id number] [place] [address] Jun, [facility] [place] [facility] [address] [id number] [place] [address] Jun, [facility] [place] [facility] [address] [id number] [place] [address] Jun, [facility] [place] [facility] [address] [id number] [place] [address] May, [facility] [place] [facility] [address] [id number] [place] [address] Apr, [facility] [place] [facility] [address] [id number] [place] [address] Apr, [facility] [place] [facility] [address] [id number] [place] [address] Mar, [facility] [place] [facility] [address] [id number], [place] [address] Feb, [facility] [place] [facility] [address] [id number] [place] [address] Feb, [facility] [place] [facility] [address] [id number] [place] [address] January, [facility] [place] [facility] [address] [id number], [place] [address] January, [facility] [place] [facility] [address] [id number], [place] [address] Dec, [facility] [address] [id number] [place] [address] Dec, [facility] [address] [id number] [place] [address] Dec, [facility] [address] [id number] [place] [address] Dec, [facility] [address] [id number] [place] [address] Nov, [facility] [address] [id number] [place] [address] Nov, [facility] [address] [id number] [place] [address] Oct, [facility] [address] [id number] [place] [address] Oct, [facility] [address] [id number] [place] [address] Oct, [facility] [address] [id number] [place] [address] Sep, [facility] [address] [facility] [id number] [place] [address] Sep, [facility] [address] [id number] [place] [address] Sep, [facility] [place] [facility] [address] [id number] [place] [address] Sep, [facility] [place] [facility] [address] [id number] [place] [address] Sep, [facility] [place] [facility] [address] [id number] [place] [address] Aug, [facility] [address] [facility] [id number] [place] [address] Aug, [facility] [place] [facility] [address] [id number] [place] [address] Aug, [facility] [place] [facility] [address] [id number] [place] [address] Aug, [facility] [place] [facility] [address] [id number] [place] [address] Jul, [facility] [place] [facility] [address] [id number] [place] [address] Jul, [facility] [place] [facility] [address] [id number] [place] [address] Jul, [facility] [place] [facility] [address] [id number] [place] [address] Jul, [facility] [place] [facility] [address] [id number] [place] [address] Jun, [facility] [place] [facility] [address] [id number] [place] [address] Jun, [facility] [place] [facility] [address] [id number] [place] [address] Jun, [facility] [place] [facility] [address] [id number] [place] [address] Jun, [facility] [place] [facility] [address] [id number] [place] [address] Jun, [facility] [place] [facility] [address] [id number] [place] [address] 24 May, 2012 [facility] [place] [facility] [address] [id number] [place] [address] 13 Sep2011 [facility] [place] [facility] [address] [id number] [place] [address] 12 May, 2012 [facility] [place] [facility] [address] [id number] [place] [address] 11 May, 2012 [facility] [place] [facility] [address] [id number] [place] [address] May, [facility] [place] [facility] [address] [id number] [place] [address] May, [facility] [place] [facility] [address] [id number] [place] [address] May, [facility] [place] [facility] [address] [id number] [place] [address] Apr, [facility] [place] [facility] [address] [id number] [place] [address] Apr, [facility] [place] [facility] [address] [id number] [place] [address] Apr, [facility] [place] [facility] [address] [id number] [place] [address] Apr, [facility] [place] [facility] [address] [id number] [place] [address] Apr, [facility] [place] [facility] [address] [id number] [place] [address] Apr, [facility] [place] [facility] [address] [id number] [place] [address] Apr, [facility] [place] [facility] [address] [id number] [place] [address] Apr, [facility] [place] [facility] [address] [id number] [place] [address] Mar, [facility] [place] [facility] [address] [id number] [place] [address] Mar, [facility] [place] [facility] [address] [id number] [place] [address] Mar, [facility] [place] [facility] [address] [id number] [place] [address] Feb, [facility] [place] [facility] [address] [id number] [place] [address] January, [facility] [place] [facility] [id number] [address] January, [facility] [address] [id number] [address] January, [facility] [id number] [address] Dec, [facility] [id number] [address] Dec, [facility] [id number] [address] Dec, [facility] [id number] [address] Dec, [facility] [id number] [address] Dec, [facility] [id number] [address] Dec, IMMUNIZATIONS No Known Immunizations SOCIAL HISTORY Never Assessed REASON FOR VISIT acute f/u PLAN OF CARE VITAL SIGNS MEDICATIONS Unknown [...] History appendectomy age 10 at [facility] Surgical History cholecystectomy-[facility] 2007 Surgical History coronary artery bypass graft LAD 02/2012 Surgical History heart cath x2 after bypass, pt has 5 stents Hospitalization History Chest pain, dizziness, renal insuff, heat cath showed CAD ([facility]) 01/03/2012 Hospitalization History CABG ([facility]) Dr. Banks 02/2012
--- OUTSIDE RECORDS SUMMARY | 2019-05-03 09:55 | XMS REPORT ---
Author Author BELEM FUENTES Organization [employer] Address Unknown Phone Unavailable Care Team Providers Care [employer] Teacher Name Role Phone BELEM FUENTES CP Unavailable Allergies No Known Allergies Problems Problem Type Condition ICD-9 Code Onset Dates Condition Status Problem Coronary atherosclerosis of unspecified type of vessel, [place] or graft 414.00 Active Problem Dizziness and giddiness 780.4 Active Problem Anxiety state, unspecified 300.00 Active Problem Chronic airway obstruction, not elsewhere classified 496 Active Problem Painful respiration 786.52 Active Medications No Known Medications Results No Known Results Summary Purpose [employer] Submission
--- OUTSIDE RECORDS SUMMARY | 2019-05-03 09:55 | XMS REPORT ---
Author Author BELEM FUENTES Organization [facility] Address [address] [place] [address] Care Team Providers Care Material Handling Supervisor Name Role Phone BELEM FUENTES Unavailable PROBLEMS Type Condition ICD9-CM Code AYN18-JB Code Onset Dates Condition Status SNOMED Code Problem Chronic kidney disease N18.9 Active 202482593 Problem Chest wall pain R07.89 Active 507490604 Problem Chronic fatigue R53.82 Active 47346346 Problem Coronary artery disease involving [place] coronary artery of [place] heart without angina pectoris I25.10 Active 4745103297530 Problem Anemia, unspecified type D64.9 Active 542664422 Problem Vertigo R42 Active 882850719 Problem Mixed hyperlipidemia E78.2 Active 535548767 Problem Iron deficiency anemia, unspecified iron deficiency anemia type D50.9 Active 34744867 ALLERGIES No Information ENCOUNTERS Encounter Location Date Diagnosis [place] [id number] [place] [address] Dec, [place] [id number] [place] [address] Nov, Chest wall pain R07.89 [place] [id number] [place] [address] Oct, Chest wall pain R07.89 [place] [id number] [place] [address] Sep, Chest wall pain R07.89 and Pleurodynia R07.81 [facility] [id number] [place] [address] Sep, [facility] [id number] [place] [address] Sep, Chest wall pain R07.89 and Sore throat J02.9 [facility] [id number] [place] [address] Sep, [facility] [id number] [place] [address] Sep, Sore throat J02.9 and Acute nasopharyngitis J00 [facility] [id number] [place] [address] Sep, [facility] [id number] [place] [address] Aug, Chest wall pain R07.89 [place] [id number] [place] [address] Jul, Chest wall pain R07.89 [place] [id number] [place] [address] Jul, [place] [address] [address] Jul, Chest wall pain R07.89 [place] [id number] [place] [address] Jul, Chest wall pain R07.89 ; Chronic fatigue R53.82 ; Anemia, unspecified type D64.9 ; Vertigo R42 and Coronary artery disease involving [place] coronary artery of [place] heart without angina pectoris I25.10 [place] [id number] [place] [address] Jun, Chest wall pain R07.89 [facility] [id number] [place] [address] Apr, Chest wall pain R07.89 [facility] [id number] [place] [address] Apr, [facility] [id number] [place] [address] Apr, Dental abscess K04.7 [facility] [id number] [place] [address] Apr, [facility] [id number] [place] [address] Apr, Chest wall pain R07.89 [facility] [id number] [place] [address] Mar, Chest wall pain R07.89 [facility] [id number] [place] [address] Feb, Chest wall pain R07.89 ; Lateral epicondylitis of right elbow M77.11 and Mixed hyperlipidemia E78.2 [facility] [id number] [place] [address] Feb, Chest wall pain R07.89 [facility] [id number] [place] [address] January, [facility] [id number] [place] [address] January, Chest wall pain R07.89 [facility] [id number] [place] [address] Dec, Chest wall pain R07.89 [facility] [id number] [place] [address] Nov, [facility] [id number] [place] [address] Nov, Hypokalemia E87.6 [facility] [id number] [place] [address] Nov, Hypokalemia E87.6 and Iron deficiency anemia, unspecified iron deficiency anemia type D50.9 [facility] [id number] [place] [address] Nov, [facility] [id number] [place] [address] Nov, Nausea R11.0 and Hypovolemia E86.1 [facility] [id number] [place] [address] Nov, [facility] [id number] [place] [address] Nov, [facility] [id number] [place] [address] Nov, Chest wall pain R07.89 [facility] [id number] [place] [address] Nov, Bronchitis J40 [facility] [address] [address] 09 Oct, 2016 Chest wall pain R07.89 [facility] [id number] [place] [address] Sep, Chest wall pain R07.89 [facility] [id number] [place] [address] Aug, Chest wall pain R07.89 [facility] [id number] [place] [address] Aug, Chest pain on breathing R07.1 [facility] [id number] [place] [address] Jul, [facility] [id number] [place] [address] 07 Jun, 2016 [facility] [id number] [place] [address] 16 May, 2016 Chest wall pain R07.89 ; Iron deficiency anemia, unspecified iron deficiency anemia type D50.9 ; Chronic kidney disease N18.9 and Encounter for immunization Z23 [facility] [id number] [place] [address] 09 May, 2016 [facility] [id number] [place] [address] Apr, [facility] [id number] [place] [address] Mar, [facility] [id number] [place] [address] Mar, [facility] [id number] [place] [address] Feb, [facility] [address] [address] Feb, Iron deficiency anemia, unspecified iron deficiency anemia type D50.9 [facility] WALK IN [facility] [address] [address] Feb, Dehydration E86.0 ; Diarrhea, unspecified type R19.7 ; Dizziness R42 and Other specified hypotension I95.89 [place] [address] [address] Feb, Anemia, unspecified type D64.9 [facility] [id number] [place] [address] January, Anemia, unspecified type D64.9 [place] [id number] [place] [address] January, Paresthesia R20.2 [place] [id number] [place] [address] January, Chest wall pain R07.89 [facility] [id number] [place] [address] Dec, Insomnia G47.00 [place] [address] [address] Dec, Chest pain on breathing R07.1 [facility] [id number] [place] [address] Nov, Chest pain on breathing R07.1 [facility] [address] [place] [address] Oct, [facility] [id number] [place] [address] Oct, [facility] [id number] [place] [address] Oct, Low back pain M54.5 and Chest wall pain R07.89 [facility] [address] [address] Oct, Pleurodynia R07.81 [facility] [id number] [place] [address] Sep, Pleurodynia R07.81 and Other nerve root and plexus disorders G54.8 [facility] [id number] [place] [address] Aug, Chronic kidney disease N18.9 ; Encounter for immunization Z23 ; Chest wall pain R07.89 ; Urinary frequency R35.0 and Vertigo R42 [facility] [id number] [place] [address] Aug, [facility] [id number] [place] [address] Jul, [facility] [id number] [place] [address] Jul, [facility] [id number] [place] [address] Jun, [facility] [id number] [place] [address] Jun, [facility] [id number] [place] [address] May, [facility] [id number] [place] [address] May, [facility] [id number] [place] [address] May, [facility] [address] [id number], [place] [address] May, Coronary atherosclerosis of unspecified type of vessel, [place] or graft 414.00 [facility] [address] [id number] [place] [address] Apr, [facility] [address] [id number], [place] [address] Apr, [facility] [address] [id number], [place] [address] Apr, [facility] [address] [id number] [place] [address] Apr, [facility] [address] [id number], [place] [address] Apr, [facility] [address] [id number], [place] [address] Apr, Coronary atherosclerosis of unspecified type of vessel, [place] or graft 414.00 and Left-sided chest wall pain 786.52 [facility] [address] [id number], [place] [address] Mar, [facility] [address] [id number], [place] [address] Mar, [facility] [address] [id number], [place] [address] Feb, [facility] [address] [id number], [place] [address] Feb, [facility] [address] [id number], [place] [address] January, [facility] [address] [id number], [place] [address] January, [facility] [address] [id number], [place] [address] January, [facility] [address] [facility] [id number] [place] [address] January, Neuropathic pain of chest 353.8 [facility] [place] [facility] [address] [id number] [place] [address] 14 Dec, 2014 [facility] [place] [facility] [address] [facility] [id number] [place] [address] Dec, [facility] [place] [facility] [address] [facility] [id number] [place] [address] Nov, [facility] [place] [facility] [address] [facility] [id number] [place] [address] Nov, [facility] [place] [facility] [address] [facility] [id number] [place] [address] Nov, [facility] [place] [facility] [id number] [place] [address] Nov, [facility] [place] [facility] [address] [facility] [id number], [place] [address] Nov, [facility] [place] [facility] [id number] [place] [address] Nov, [facility] [place] [facility] [id number] [place] [address] Oct, [facility] [place] [facility] [address] [id number], [place] [address] Oct, [facility] [place] [facility] [address] [facility] [id number], [place] [address] Oct, [facility] [place] [facility] [address] [facility] [id number] [place] [address] Oct, [facility] [place] [facility] [address] [facility] [id number], [place] [address] Oct, [facility] [place] [facility] [address] [facility] [id number] [place] [address] Oct, [facility] [place] [facility] [address] [id number] [place] [address] Sep, [facility] [place] [facility] [address] [id number] [place] [address] Sep, [facility] [place] [facility] [address] [id number] [place] [address] Sep, [facility] [place] [facility] [address] [id number] [place] [address] Sep, [facility] [place] [facility] [address] [id number] [place] [address] Aug, [facility] [place] [facility] [address] [id number] [place] [address] Aug, [facility] [place] [facility] [address] [id number] [place] [address] Aug, [facility] [place] [facility] [address] [id number] [place] [address] Aug, [facility] [place] [facility] [address] [id number] [place] [address] Aug, [facility] [place] [facility] [address] [id number] [place] [address] Aug, [facility] [place] [facility] [address] [id number] [place] [address] Aug, [facility] [place] [facility] [address] [id number] [place] [address] Aug, [facility] [place] [facility] [address] [id number] [place] [address] Aug, [facility] [place] [facility] [address] [id number] [place] [address] Aug, [facility] [place] [facility] [address] [id number] [place] [address] Jul, [facility] [place] [facility] [address] [id number] [place] [address] Jul, [facility] [place] [facility] [address] [id number] [place] [address] Jul, [facility] [place] [facility] [address] [id number] [place] [address] Jul, [facility] [place] [facility] [address] [id number] [place] [address] Jun, [facility] [place] [facility] [address] [id number] [place] [address] Jun, [facility] [place] [facility] [address] [id number] [place] [address] Jun, [facility] [place] [facility] [address] [id number] [place] [address] Jun, [facility] [place] [facility] [address] [id number] [place] [address] May, [facility] [place] [facility] [address] [id number] [place] [address] May, [facility] [place] [facility] [address] [id number] [place] [address] May, [facility] [place] [facility] [address] [id number] [place] [address] May, [facility] [place] [facility] [address] [id number], [place] [address] Apr, [facility] [place] [facility] [address] [id number], [place] [address] Apr, [facility] [place] [facility] [address] [id number] [place] [address] Feb, [facility] [place] [facility] [address] [id number], [place] [address] January, [facility] [place] [facility] [address] [id number] [place] [address] January, [facility] [place] [facility] [address] [id number] [place] [address] January, [facility] [address] [id number] [place] [address] January, [facility] [place] [facility] [address] [id number] [place] [address] January, [facility] [place] [facility] [address] [id number] [place] [address] January, [facility] [place] [facility] [address] [id number] [place] [address] Dec, [facility] [place] [facility] [address] [id number] [place] [address] Dec, [facility] [place] [facility] [address] [id number] [place] [address] Dec, [facility] [place] [facility] [address] [id number] [place] [address] Dec, [facility] [place] [facility] [address] [id number] [place] [address] Dec, [facility] [place] [facility] [address] [id number] [place] [address] Dec, [facility] [place] [facility] [address] [id number] [place] [address] Dec, [facility] [place] [facility] [address] [id number] [place] [address] Dec, [facility] [place] [facility] [address] [id number] [place] [address] Nov, [facility] [place] [facility] [address] [id number] [place] [address] Nov, [facility] [place] [facility] [address] [id number] [place] [address] Nov, [facility] [place] [facility] [address] [id number] [place] [address] Nov, [facility] [place] [facility] [address] [id number] [place] [address] Nov, [facility] [place] [facility] [address] [id number] [place] [address] Nov, [facility] [place] [facility] [address] [id number] [place] [address] Nov, [facility] [place] [facility] [address] [id number] [place] [address] Oct, [facility] [place] [facility] [address] [id number] [place] [address] Oct, [facility] [place] [facility] [address] [id number] [place] [address] Oct, [facility] [place] [facility] [address] [id number] [place] [address] Oct, [facility] [place] [facility] [address] [id number] [place] [address] Sep, [facility] [place] [facility] [address] [id number] [place] [address] Sep, [facility] [place] [facility] [address] [id number] [place] [address] Sep, [facility] [place] [facility] [address] [id number] [place] [address] Sep, [facility] [place] [facility] [address] [id number] [place] [address] Aug, [facility] [place] [facility] [address] [id number] [place] [address] Aug, [facility] [place] [facility] [address] [id number] [place] [address] Jul, [facility] [place] [facility] [address] [id number] [place] [address] Jul, [facility] [place] [facility] [address] [id number] [place] [address] Jun, [facility] [address] [id number] [place] [address] Jun, [facility] [place] [facility] [address] [id number] [place] [address] Jun, [facility] [address] [id number] [place] [address] May, [facility] [place] [facility] [address] [id number] [place] [address] Apr, [facility] [address] [id number] [place] [address] Apr, [facility] [place] [facility] [address] [id number] [place] [address] Mar, [facility] [address] [id number] [place] [address] Feb, [facility] [place] [facility] [address] [id number] [place] [address] Feb, [facility] [address] [id number] [place] [address] January, [facility] [place] [facility] [address] [facility] [id number] [place] [address] January, [facility] [address] [id number] [place] [address] Dec, [facility] [place] [facility] [address] [id number] [place] [address] Dec, [facility] [place] [facility] [address] [id number] [place] [address] Dec, [facility] [place] [facility] [address] [id number] [place] [address] Dec, [facility] [place] [facility] [address] [id number] [place] [address] Nov, [facility] [place] [facility] [address] [id number] [place] [address] Nov, [facility] [address] [id number] [place] [address] Oct, [facility] [place] [facility] [address] [id number] [place] [address] Oct, [facility] [place] [facility] [address] [id number] [place] [address] Oct, [facility] [place] [facility] [address] [id number] [place] [address] Sep, [facility] [place] [facility] [address] [id number] [place] [address] Sep, [facility] [address] [id number] [place] [address] Sep, [facility] [address] [id number] [place] [address] Sep, [facility] [address] [id number] [place] [address] Sep, [facility] [address] [id number] [place] [address] Aug, [facility] [address] [id number] [place] [address] Aug, [facility] [place] [facility] [address] [id number] [place] [address] Aug, [facility] [place] [facility] [address] [id number] [place] [address] Aug, [facility] [place] [facility] [address] [id number] [place] [address] Jul, [facility] [place] [facility] [address] [id number] [place] [address] Jul, [facility] [place] [facility] [address] [id number] [place] [address] Jul, [facility] [place] [facility] [address] [id number] [place] [address] Jul, [facility] [place] [facility] [address] [id number] [place] [address] Jun, [facility] [place] [facility] [address] [id number] [place] [address] Jun, [facility] [place] [facility] [address] [id number] [place] [address] Jun, [facility] [place] [facility] [address] [id number] [place] [address] Jun, [facility] [place] [facility] [address] [id number] [place] [address] Jun, [facility] [place] [facility] [address] [id number] [place] [address] 24 May, 2012 [facility] [place] [facility] [address] [id number] [place] [address] 13 May, 2012 [facility] [place] [facility] [address] [id number] [place] [address] 12 May, 2012 [facility] [place] [facility] [address] [id number] [place] [address] 11 May, 2012 [facility] [place] [facility] [address] [id number] [place] [address] 10 May, 2012 [facility] [place] [facility] [address] [id number] [address] 06 May, 2012 [facility] [place] [facility] [address] [id number] [place] [address] 05 May, 2012 [facility] [place] [facility] [address] [facility] [id number] [place] [address] 30 Apr, 2012 [facility] [place] [facility] [address] [id number] [place] [address] Apr, [facility] [place] [facility] [address] [id number] [place] [address] Apr, [facility] [address] [id number] [place] [address] Apr, [facility] [address] [id number] [place] [address] Apr, [facility] [address] [id number] [place] [address] Apr, [facility] [address] [id number] [place] [address] Apr, [facility] [address] [id number] [place] [address] Apr, [facility] [address] [id number] [place] [address] Mar, [facility] [address] [id number] [place] [address] Mar, [facility] [address] [id number] [place] [address] Mar, [facility] [address] [id number] [place] [address] Feb, [facility] [address] [id number] [place] [address] January, [facility] [place] [facility] [address] [id number] [place] [address] January, [facility] [address] [id number] [place] [address] January, [facility] [place] [facility] [address] [id number] [place] [address] Dec, [facility] [place] [facility] [address] [id number] [place] [address] Dec, [facility] [place] [facility] [address] [id number] [place] [address] Dec, [facility] [address] [facility] [id number] [place] [address] Dec, [facility] [address] [facility] [id number] [place] [address] Dec, [facility] [address] [facility] [id number] [place] [address] Dec, IMMUNIZATIONS No Known Immunizations SOCIAL HISTORY Never Assessed REASON FOR VISIT VMB not set up PLAN OF CARE VITAL SIGNS MEDICATIONS Unknown [...] appendectomy age 10 at [facility] Surgical History cholecystectomy-[facility] 2007 Surgical History coronary artery bypass graft LAD 02/2012 Surgical History heart cath x2 after bypass, pt has 5 stents Hospitalization History Chest pain, dizziness, renal insuff, heat cath showed CAD ([facility]) 01/03/2012 Hospitalization History CABG ([facility]) Dr. Banks 02/2012
--- OUTSIDE RECORDS SUMMARY | 2019-05-03 09:56 | XMS REPORT ---
Author Author BELEM FUENTES [facility] eClinicalWorks Address Unknown Phone Unavailable Care Team Providers Care Application Security Engineer Name Role Phone BELEM FUENTES CP Unavailable Allergies, Adverse Reactions, Alerts Substance Reaction Event Type Celebrex hot flashes Drug Allergy Problems Problem Type Condition Code Onset Dates Condition Status Assessment Urinary frequency R35.0 Active Assessment Encounter for immunization Z23 Active Assessment Chest wall pain R07.89 Active Assessment Vertigo R42 Active Problem Chest wall pain R07.89 Active Problem Vertigo R42 Active Problem Chronic kidney disease N18.9 Active Problem Chronic airway obstruction, not elsewhere classified 496 Active Assessment Chronic kidney disease N18.9 Active Problem Anxiety state, unspecified 300.00 Active Problem Coronary atherosclerosis of unspecified type of vessel, [place] or graft 414.00 Active Medications Medication Code System Code Instructions Start Date End Date Status Dosage Restoril [facility] [address]-29 30 MG Orally Once a day Nov 20, 2014 1 capsule at bedtime as needed Lyrica [facility] [address]-62 50 MG Three times a day TAKE ONE CAPSULE BY MOUTH THREE TIMES DAILY FOR FIBROMYALGIA OR IDIOAPATHIC NEUROPATHY Multivitamin [facility] [address] Oct 19, 2012 1 Tablet by Oral route 1 time per day Aspirin [facility] [address]-36 81 mg December 18, 2014 take 1 tablet (81 mg) by oral route once daily Citalopram Hydrobromide [facility] [address]-05 20 MG Orally Once a day 1 tablet Hydrocodone-Acetaminophen [facility] [address]-38 7.5-325 MG Orally, must be seen before more refills every 6 hrs December 10, 2014 1-2 tablet as needed Diclofenac Sodium [facility] [address]-91 75 MG Orally 2 times a day ONE TABLET Fish Oil Concentrate [facility] [address] 1000 mg Oct 19, 2012 1 Capsule by Oral route 2 times per day Lisinopril [facility] [address]-97 5 mg December 26, 2013 1 tablet by Oral route 1 time per day Simvastatin [facility] [address]-57 40 mg Oct 20, 2014 1 tablet by Oral route 1 time per day Seroquel [facility] [address]-72 200 MG Once a day TAKE ONE TABLET BY MOUTH DAILY Procedures Procedure Coding System Code Date FLUARIX QUAD (3 & UP)-GSK-2014 CPT-4 50608 Sep 11, 2015 SINGLE IMMUNIZATION ADMIN CPT-4 11982 Sep 11, 2015 LAB NOT BILLED BY [facility] CPT-4 NOBLL Sep 11, 2015 FQ VISIT ESTABLISHED PATIENT CPT-4 G0467 Sep 11, 2015 VENIPUNCT, ROUTINE* CPT-4 84050 Sep 11, 2015 Office Visit, Est Pt., Level 3 CPT-4 80395 Sep 11, 2015 Vital Signs Date/Time: Sep 11, 2015 Temperature 98.0 F Weight 198 lbs Height 70 in BMI 28.41 Index Blood Pressure Diastolic 76 mmHg Blood Pressure Systolic 125 mmHg Cardiac Monitoring Heart Rate 78 bpm Results Name Result Date Reference Range Unit Abnormality Flag ROUTINE VENIPUNCTURE Immunizations Vaccine Administration Date FLUARIX QUAD (3 & UP)-GSK-2014Sep 11, 2015 Summary Purpose eClinicalWorks Submission
--- OUTSIDE RECORDS SUMMARY | 2019-05-03 09:56 | XMS REPORT ---
Author Author BELEM FUENTES [facility] Address [address] [place] [address] Care Team Providers Care Home Energy Consultant Name Role Phone BELEM FUENTES Unavailable PROBLEMS Type Condition ICD9-CM Code [id number] Code Onset Dates Condition Status SNOMED Code Assessment Encounter for immunization Z23 May, Active 171249621 Problem Iron deficiency anemia, unspecified iron deficiency anemia type D50.9 Active 46353573 Problem Anemia, unspecified type D64.9 Active 551397358 Problem Vertigo R42 Active 981775103 Assessment Chest wall pain R07.89 May, Active 809553259 Problem Chronic kidney disease N18.9 Active 398674698 Problem Chest wall pain R07.89 Active 478440841 ALLERGIES Substance Reaction Event Type Date Status Celebrex hot flashes Drug Allergy May, Active SOCIAL HISTORY No smoking Hx information available PLAN OF CARE VITAL SIGNS Height 70 in 2016-06-10 Weight 197.4 lbs 2016-06-10 Heart Rate 72 bpm 2016-06-10 Respiratory Rate 20 2016-06-10 BMI 28.32 kg/m2 2016-06-10 Blood pressure systolic 129 mmHg 2016-06-10 Blood pressure diastolic 78 mmHg 2016-06-10 MEDICATIONS Medication Instructions Dosage Frequency Start Date End Date Duration Status Lisinopril 5 mg 1 tablet by Oral route 1 time per day Dec, Active Aspirin EC Low Dose 81 MG TAKE ONE TABLET BY MOUTH DAILY 100 Active Multivitamin 1 Tablet by Oral route 1 time per day Sep, Active Simvastatin 40 MG TAKE ONE TABLET BY MOUTH DAILY 30 Active Seroquel 200 MG Orally Once a day 1 tablet 24h 30 Active Restoril 30 MG Orally Once a day 1 capsule at bedtime as needed 24h Oct, Active Acidophilus 100 MG Orally 2-3 times a day until diarrhea resolves 1 capsule Feb, Active Temazepam 30 MG TAKE ONE CAPSULE BY MOUTH AT BEDTIME NEEDED 30 Active Hydrocodone-Acetaminophen 7.5-325 MG Orally 5 times per day 2 tablet 18 Nov, 2014 Active Fish Oil Concentrate 1000 mg 1 Capsule by Oral route 2 times per day Sep, Active Citalopram Hydrobromide 20 MG Orally Once a day 1 tablet 24h Active Lyrica 50 mg TAKE ONE CAPSULE BY MOUTH THREE TIMES DAILY FOR FIBROMYALGIA OR IDIOAPATHIC NEUROPATHY 8h Active Diclofenac Sodium 75 MG Orally 2 times a day ONE TABLET 12h 30 Active RESULTS Name Result Date Reference Range CBC 2016-06-10 WBC 6.1 3.4-10.8 RBC 3.98 4.14-5.80 Hemoglobin 9.9 12.6-17.7 Hematocrit 31.8 37.5-51.0 MCV 80 79-97 MCH 24.9 26.6-33.0 MCHC 31.1 31.5-35.7 RDW 17.3 12.3-15.4 Platelets 248 150-379 Neutrophils 55 Lymphs 35 Monocytes 6 Eos 3 Basos 1 Immature Cells Neutrophils (Absolute) 3.4 1.4-7.0 Lymphs (Absolute) 2.1 0.7-3.1 Monocytes(Absolute) 0.4 0.1-0.9 Eos (Absolute) 0.2 0.0-0.4 Baso (Absolute) 0.0 0.0-0.2 Immature Granulocytes 0 Immature Grans (Abs) 0.0 0.0-0.1 NR Hematology Comments: CMP 2016-06-10 Glucose, Serum 82 65-99 BUN 18 8-27 Creatinine, Serum 1.39 0.76-1.27 eGFR If NonAfricn Am 55 >59 eGFR If Africn Am 63 >59 BUN/Creatinine Ratio 13 10-22 Sodium, Serum 139 134-144 Potassium, Serum 4.5 3.5-5.2 Chloride, Serum 100 97-108 Carbon Dioxide, Total 22 18-29 Calcium, Serum 9.2 8.6-10.2 Protein, Total, Serum 6.9 6.0-8.5 Albumin, Serum 4.2 3.6-4.8 Globulin, Total 2.7 1.5-4.5 A/G Ratio 1.6 1.1-2.5 Bilirubin, Total 0.2 0.0-1.2 Alkaline Phosphatase, S 83 39-117 AST (SGOT) 18 0-40 ALT (SGPT) 15 0-44 PROCEDURES Procedure Date Ordered Related Diagnosis Body Site [facility] FLUARIX QUAD P-FREE 3 AND UP .50 2015Jun 10, 2016 Office Visit, Est Pt., Level 3 Jun 10, 2016 FQ VISIT ESTABLISHED PATIENT Jun 10, 2016 SINGLE IMMUNIZATION ADMIN Jun 10, 2016 PCV 13 Jun 10, 2016 VENIPUNCT, ROUTINE* Jun 10, 2016 IMMUNIZATION ADMIN, EACH ADD (please include units) Jun 10, 2016 IMMUNIZATIONS Vaccine Route Administration Date Status PCV 13 IM Intramuscular Jun 10, 2016 Administered FLUARIX QUAD P-FREE 3 AND UP .50 2015 IM Intramuscular Jun 10, 2016 Administered
--- OUTSIDE RECORDS SUMMARY | 2019-05-03 09:56 | XMS REPORT ---
Author Author BELEM FUENTES Organization [facility] Address [address] [place] [address] Care Team Providers Care Heat Treater Helper Name Role Phone BELEM FUENTES Unavailable PROBLEMS Type Condition ICD9-CM Code ESW25-DZ Code Onset Dates Condition Status SNOMED Code Problem Chronic kidney disease N18.9 Active 466091066 Problem Chest wall pain R07.89 Active 158415746 Problem Chronic fatigue R53.82 Active 73957325 Problem Coronary artery disease involving [place] coronary artery of [place] heart without angina pectoris I25.10 Active 3456870200829 Problem Anemia, unspecified type D64.9 Active 379220171 Problem Vertigo R42 Active 797945700 Problem Mixed hyperlipidemia E78.2 Active 577067252 Problem Iron deficiency anemia, unspecified iron deficiency anemia type D50.9 Active 42498332 ALLERGIES Substance Reaction Event Type Date Status Celebrex hot flashes Drug Allergy Jul, Active ENCOUNTERS Encounter Location Date Diagnosis [facility] [id number] [place] [address] January, [facility] [id number] [place] [address] Dec, Chest wall pain R07.89 ; Coronary artery disease involving [place] coronary artery of [place] heart without angina pectoris I25.10 and Vertigo R42 [facility] [id number] [place] [address] Dec, Chest wall pain R07.89 [facility] [id number] [place] [address] Nov, Chest wall pain R07.89 [facility] [id number] [place] [address] Oct, Chest wall pain R07.89 [facility] [id number] [place] [address] Sep, Chest wall pain R07.89 and Pleurodynia R07.81 [facility] [id number] [place] [address] Sep, [facility] [id number] [place] [address] Sep, Chest wall pain R07.89 and Sore throat J02.9 [facility] [id number] [place] [address] Sep, [facility] [id number] [place] [address] Sep, Sore throat J02.9 and Acute nasopharyngitis J00 [facility] [id number] [place] [address] Sep, [facility] [id number] [place] [address] Aug, Chest wall pain R07.89 [facility] [id number] [place] [address] Jul, Chest wall pain R07.89 [facility] [id number] [place] [address] Jul, [facility] [id number] [place] [address] Jul, Chest wall pain R07.89 [facility] [address] [place] [address] Jul, Chest wall pain R07.89 ; Chronic fatigue R53.82 ; Anemia, unspecified type D64.9 ; Vertigo R42 and Coronary artery disease involving [place] coronary artery of [place] heart without angina pectoris I25.10 [facility] [id number] [place] [address] Jun, Chest wall pain R07.89 [facility] [address] [address] Apr, Chest wall pain R07.89 [facility] [id number] [place] [address] Apr, [facility] [id number] [place] [address] Apr, Dental abscess K04.7 [facility] [id number] [place] [address] Apr, [facility] [id number] [place] [address] Apr, Chest wall pain R07.89 [facility] [id number] [place] [address] Mar, Chest wall pain R07.89 [facility] [id number] [place] [address] 15 Feb, 2017 Chest wall pain R07.89 ; Lateral epicondylitis of right elbow M77.11 and Mixed hyperlipidemia E78.2 [facility] [id number] [place] [address] Feb, Chest wall pain R07.89 [facility] [id number] [place] [address] January, [facility] [id number] [place] [address] January, Chest wall pain R07.89 [facility] [id number] [place] [address] Dec, Chest wall pain R07.89 [facility] [id number] [place] [address] Nov, [facility] [id number] [place] [address] Nov, Hypokalemia E87.6 [facility] [address] [address] Nov, Hypokalemia E87.6 and Iron deficiency anemia, unspecified iron deficiency anemia type D50.9 [facility] [id number] [place] [address] Nov, [facility] [id number] [place] [address] Nov, Nausea R11.0 and Hypovolemia E86.1 [facility] [id number] [place] [address] Nov, [facility] [id number] [place] [address] Nov, [facility] [id number] [place] [address] Nov, Chest wall pain R07.89 [facility] [id number] [place] [address] Nov, Bronchitis J40 [facility] [id number] [place] [address] 09 Oct, 2016 Chest wall pain R07.89 [facility] [address] [place] [address] Sep, Chest wall pain R07.89 [facility] [id number] [place] [address] Aug, Chest wall pain R07.89 [facility] [id number] [place] [address] Aug, Chest pain on breathing R07.1 [facility] [id number] [place] [address] Jul, [facility] [id number] [place] [address] Jun, [facility] [address] [address] 16 May, 2016 Chest wall pain R07.89 ; Iron deficiency anemia, unspecified iron deficiency anemia type D50.9 ; Chronic kidney disease N18.9 and Encounter for immunization Z23 [facility] [id number] [address] 09 May, 2016 [facility] [id number] [place] [address] Apr, [facility] [id number] [place] [address] Mar, [facility] [id number] [place] [address] Mar, [facility] [id number] [place] [address] Feb, [facility] [id number] [place] [address] Feb, Iron deficiency anemia, unspecified iron deficiency anemia type D50.9 [facility] [id number] [place] [address] Feb, Dehydration E86.0 ; Diarrhea, unspecified type R19.7 ; Dizziness R42 and Other specified hypotension I95.89 [place] [address] [address] Feb, Anemia, unspecified type D64.9 [facility] [id number] [place] [address] January, Anemia, unspecified type D64.9 [facility] [id number] [place] [address] January, Paresthesia R20.2 [facility] [address] [place] [address] January, Chest wall pain R07.89 [facility] [address] [place] [address] Dec, Insomnia G47.00 [facility] [address] [address] Dec, Chest pain on breathing R07.1 [facility] [id number] [place] [address] Nov, Chest pain on breathing R07.1 [facility] [address] [address] Oct, [facility] [address] [address] Oct, [facility] [address] [address] Oct, Low back pain M54.5 and Chest wall pain R07.89 [facility] [address] [address] Oct, Pleurodynia R07.81 [facility] [id number] [place] [address] Sep, Pleurodynia R07.81 and Other nerve root and plexus disorders G54.8 [facility] [id number] [place] [address] Aug, Chronic kidney disease N18.9 ; Encounter for immunization Z23 ; Chest wall pain R07.89 ; Urinary frequency R35.0 and Vertigo R42 [facility] [id number] [place] [address] Aug, [facility] [address] [address] Jul, [facility] [id number] [place] [address] Jul, [facility] [address] [address] Jun, [facility] [address] [id number] [address] Jun, [facility] [address] [id number] [address] May, [facility] [address] [id number] [address] May, [facility] [address] [id number] [address] May, [facility] [address] [id number] [address] May, Coronary atherosclerosis of unspecified type of vessel, [place] or graft 414.00 [facility] [address] [id number] [address] Apr, [facility] [address] [id number] [address] Apr, [facility] [address] [id number] [address] Apr, [facility] [address] [id number] [address] Apr, [facility] [address] [id number] [address] Apr, [facility] [address] [id number] [address] Apr, Coronary atherosclerosis of unspecified type of vessel, [place] or graft 414.00 and Left-sided chest wall pain 786.52 [facility] [address] [id number] [address] Mar, [facility] [address] [facility] [id number] [address] Mar, [facility] [address] [id number] [address] Feb, [facility] [address] [id number] [place] [address] Feb, [facility] [address] [facility] [id number] [place] [address] January, [facility] [address] [id number] [place] [address] January, [facility] [address] [facility] [id number] [place] [address], [place] [address] January, [facility] [address] [facility] [id number] [place] [address] January, Neuropathic pain of chest 353.8 [facility] [id number] [place] [address], [place] [address] Dec, [facility] [address] [place] [address] Dec, [facility] [address] [address] Nov, [facility] [id number] [place] [address] Nov, [facility] [address] [address] Nov, [facility] [address] [address] Nov, [facility] [address] [facility] [id number] [address] Nov, [facility] [address] [facility] [id number] [place] [address] Nov, [facility] [address] [facility] [id number] [address] Oct, [facility] [address] [facility] [id number] [place] [address] Oct, [facility] [address] [address] Oct, [facility] [place] [facility] [address] [id number] [place] [address] Oct, [facility] [place] [facility] [address] [id number] [place] [address] Oct, [facility] [place] [facility] [address] [id number] [place] [address] Oct, [facility] [place] [facility] [address] [id number] [place] [address] Sep, [facility] [place] [facility] [address] [id number] [place] [address] Sep, [facility] [place] [facility] [address] [id number] [place] [address] Sep, [facility] [place] [facility] [address] [id number] [place] [address] Sep, [facility] [place] [facility] [address] [id number] [place] [address] Aug, [facility] [place] [facility] [address] [id number] [place] [address] Aug, [facility] [place] [facility] [address] [facility] [id number] [place] [address] Aug, [facility] [place] [facility] [address] [id number] [place] [address] Aug, [facility] [place] [facility] [address] [id number] [place] [address] Aug, [facility] [place] [facility] [address] [id number] [place] [address] Aug, [facility] [place] [facility] [address] [id number] [place] [address] Aug, [facility] [place] [facility] [address] [id number] [place] [address] Aug, [facility] [place] [facility] [address] [id number] [place] [address] Aug, [facility] [place] [facility] [address] [id number] [place] [address] Aug, [facility] [place] [facility] [address] [id number] [place] [address] Jul, [facility] [place] [facility] [address] [id number] [place] [address] Jul, [facility] [place] [facility] [address] [id number] [place] [address] Jul, [facility] [place] [facility] [address] [id number] [place] [address] Jul, [facility] [place] [facility] [address] [id number] [place] [address] Jun, [facility] [place] [facility] [address] [id number] [place] [address] Jun, [facility] [place] [facility] [address] [id number] [place] [address] Jun, [facility] [place] [facility] [address] [id number] [place] [address] Jun, [facility] [place] [facility] [address] [id number] [place] [address] May, [facility] [place] [facility] [address] [id number] [place] [address] May, [facility] [place] [facility] [address] [id number] [place] [address] May, [facility] [place] [facility] [address] [id number] [place] [address] May, [facility] [place] [facility] [address] [id number] [place] [address] Apr, [facility] [place] [facility] [address] [id number] [place] [address] Apr, [facility] [place] [facility] [address] [id number] [place] [address] Feb, [facility] [place] [facility] [address] [id number] [place] [address] January, [facility] [place] [facility] [address] [id number] [place] [address] January, [facility] [place] [facility] [address] [id number] [place] [address] January, [facility] [place] [facility] [address] [id number] [place] [address] January, [facility] [place] [facility] [address] [id number] [place] [address] January, [facility] [place] [facility] [address] [id number] [place] [address] January, [facility] [place] [facility] [address] [id number] [place] [address] Dec, [facility] [place] [facility] [address] [id number] [place] [address] Dec, [facility] [place] [facility] [address] [id number] [place] [address] Dec, [facility] [place] [facility] [address] [id number] [place] [address] Dec, [facility] [place] [facility] [address] [id number] [place] [address] Dec, [facility] [place] [facility] [address] [id number] [place] [address] Dec, [facility] [place] [facility] [address] [id number] [place] [address] Dec, [facility] [place] [facility] [address] [id number] [place] [address] Dec, [facility] [place] [facility] [address] [id number] [place] [address] Nov, [facility] [address] [id number] [place] [address] Nov, [facility] [place] [facility] [address] [id number] [place] [address] Nov, [facility] [place] [facility] [address] [id number] [place] [address] Nov, [facility] [place] [facility] [address] [id number] [place] [address] Nov, [facility] [place] [facility] [address] [id number] [place] [address] Nov, [facility] [place] [facility] [address] [id number] [place] [address] Nov, [facility] [place] [facility] [address] [id number] [place] [address] Oct, [facility] [place] [facility] [address] [id number] [place] [address] Oct, [facility] [place] [facility] [address] [id number] [place] [address] Oct, [facility] [place] [facility] [address] [id number] [place] [address] Oct, [facility] [place] [facility] [address] [id number] [place] [address] Sep, [facility] [place] [facility] [address] [id number] [place] [address] Sep, [facility] [place] [facility] [address] [id number] [place] [address] Sep, [facility] [place] [facility] [address] [id number] [place] [address] Sep, [facility] [place] [facility] [address] [id number] [place] [address] Aug, [facility] [address] [id number] [place] [address] Aug, [facility] [place] [facility] [address] [id number] [place] [address] Jul, [facility] [place] [facility] [address] [id number] [place] [address] Jul, [facility] [place] [facility] [address] [id number] [place] [address] Jun, [facility] [place] [facility] [address] [id number] [place] [address] Jun, [facility] [place] [facility] [address] [id number] [place] [address] Jun, [facility] [place] [facility] [address] [id number] [place] [address] May, [facility] [place] [facility] [address] [id number] [place] [address] Apr, [facility] [place] [facility] [address] [id number] [place] [address] Apr, [facility] [place] [facility] [address] [id number] [address] Mar, [facility] [place] [facility] [address] [id number] [place] [address] Feb, [facility] [place] [facility] [address] [id number] [place] [address] Feb, [facility] [place] [facility] [address] [id number] [place] [address] January, [facility] [place] [facility] [address] [id number] [place] [address] January, [facility] [place] [facility] [address] [id number] [place] [address] Dec, [facility] [place] [facility] [address] [id number] [place] [address] Dec, [facility] [address] [id number] [place] [address] Dec, [facility] [place] [facility] [address] [id number] [place] [address] 05 Dec, 2012 [facility] [address] [id number] [place] [address] Nov, [facility] [place] [facility] [address] [id number] [place] [address] Nov, [facility] [address] [id number] [place] [address] Oct, [facility] [place] [facility] [address] [id number] [place] [address] Oct, [facility] [address] [id number] [place] [address] Oct, [facility] [address] [id number] [place] [address] Sep, [facility] [place] [facility] [address] [id number] [place] [address] Sep, [facility] [address] [id number] [place] [address] Sep, [facility] [place] [facility] [address] [id number] [place] [address] Sep, [facility] [place] [facility] [address] [id number] [place] [address] Sep, [facility] [place] [facility] [address] [id number] [place] [address] Aug, [facility] [place] [facility] [address] [id number] [place] [address] Aug, [facility] [place] [facility] [address] [id number] [place] [address] Aug, [facility] [place] [facility] [address] [id number] [place] [address] 14 Aug, 2012 [facility] [place] [facility] [address] [id number] [place] [address] Jul, [facility] [place] [facility] [address] [id number] [place] [address] Jul, [facility] [place] [facility] [address] [id number] [place] [address], [place] [address] Jul, [facility] [place] [facility] [address] [id number] [place] [address] Jul, [facility] [place] [facility] [address] [id number] [place] [address] Jun, [facility] [place] [facility] [address] [id number] [place] [address] Jun, [facility] [place] [facility] [address] [id number] [place] [address] Jun, [facility] [place] [facility] [address] [id number] [place] [address] Jun, [facility] [place] [facility] [address] [id number] [place] [address] Jun, [facility] [place] [facility] [address] [id number] [place] [address] 24 May, 2012 [facility] [place] [facility] [address] [id number] [place] [address] 13 Sep2011 [facility] [place] [facility] [address] [id number] [place] [address] 12 May, 2012 [facility] [place] [facility] [address] [id number] [place] [address] 11 May, 2012 [facility] [place] [facility] [address] [id number] [place] [address] 10 May, 2012 [facility] [place] [facility] [address] [id number] [place] [address] May, [facility] [place] [facility] [address] [id number] [place] [address] May, [facility] [place] [facility] [address] [id number] [place] [address] Apr, [facility] [place] [facility] [address] [id number] [place] [address] Apr, [facility] [place] [facility] [address] [id number] [place] [address] Apr, [facility] [place] [facility] [address] [id number] [place] [address] Apr, [facility] [place] [facility] [address] [id number] [place] [address] Apr, [facility] [place] [facility] [address] [id number] [place] [address] Apr, [facility] [place] [facility] [address] [id number] [place] [address] Apr, [facility] [place] [facility] [address] [id number] [place] [address] Apr, [facility] [place] [facility] [address] [id number] [place] [address] Mar, [facility] [place] [facility] [address] [id number] [place] [address] Mar, [facility] [place] [facility] [address] [id number] [place] [address] Mar, [facility] [place] [facility] [address] [id number] [place] [address] Feb, [facility] [place] [facility] [address] [id number] [place] [address] January, [facility] [place] [facility] [address] [id number] [place] [address] January, [facility] [place] [facility] [address] [facility] [id number] [place] [address] January, [facility] [address] [facility] [id number] [address] Dec, [facility] [id number] [address] Dec, [facility] [address] [id number] [address] Dec, [facility] [address] [id number] [address] Dec, [facility] [address] [id number] [address] Dec, [facility] [address] [id number] [address] Dec, IMMUNIZATIONS No Known Immunizations SOCIAL HISTORY Never Assessed REASON FOR VISIT PALS---Lyrica PLAN OF CARE VITAL SIGNS MEDICATIONS Medication [...] 04/02/2012 Surgical History appendectomy age 10 at [facility] Surgical History cholecystectomy-[facility] 2007 Surgical History coronary artery bypass graft LAD 02/2012 Surgical History heart cath x2 after bypass, pt has 5 stents Hospitalization History Chest pain, dizziness, renal insuff, heat cath showed CAD ([facility]) 01/03/2012 Hospitalization History CABG ([facility]) Dr. Banks 02/2012
--- OUTSIDE RECORDS SUMMARY | 2019-05-03 09:57 | XMS REPORT ---
Author Author BELEM FUENTES [facility] eClinicalWorks Address Unknown Phone Unavailable Care Team Providers Care Monomer Recovery Operator Name Role Phone BELEM FUENTES CP Unavailable Allergies No Known Allergies Problems Problem Type Condition Code Onset Dates Condition Status Assessment Other nerve root and plexus disorders G54.8 Active Problem Chest wall pain R07.89 Active Problem Vertigo R42 Active Problem Chronic kidney disease N18.9 Active Problem Chronic airway obstruction, not elsewhere classified 496 Active Assessment Pleurodynia R07.81 Active Problem Anxiety state, unspecified 300.00 Active Problem Coronary atherosclerosis of unspecified type of vessel, [place] or graft 414.00 Active Medications Medication Code System Code Instructions Start Date End Date Status Dosage Hydrocodone-Acetaminophen [facility] [address]-34 7.5-325 MG Orally, every 6 hrs December 10, 2014 1-2 tablet as needed Results No Known Results Summary Purpose eClinicalWorks Submission
--- OUTSIDE RECORDS SUMMARY | 2019-05-03 09:57 | XMS REPORT ---
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.10 Active 9204247657266 Problem Anemia, unspecified type D64.9 Active 825018170 Problem Vertigo R42 Active 438989285 Problem Mixed hyperlipidemia E78.2 Active 334374373 Problem Iron deficiency anemia, unspecified iron deficiency anemia type D50.9 Active 15581729 ALLERGIES No Information ENCOUNTERS Encounter Location Date Diagnosis [place] [id number] [place] [address] Dec, [place] [id number] [place] [address] Nov, Chest wall pain R07.89 [place] [id number] [place] [address] Oct, Chest wall pain R07.89 [place] [id number] [place] [address] Sep, Chest wall pain R07.89 and Pleurodynia R07.81 [facility] [id number] [place] [address] Sep, [place] [id number] [place] [address] Sep, Chest wall pain R07.89 and Sore throat J02.9 [facility] [id number] [place] [address] Sep, [facility] [id number] [place] [address] Sep, Sore throat J02.9 and Acute nasopharyngitis J00 [facility] [id number] [place] [address] Sep, [facility] [id number] [place] [address] Aug, Chest wall pain R07.89 [place] [id number] [place] [address] Jul, Chest wall pain R07.89 [place] [id number] [place] [address] Jul, [place] [address] [address] Jul, Chest wall pain R07.89 [place] [id number] [place] [address] Jul, Chest wall pain R07.89 ; Chronic fatigue R53.82 ; Anemia, unspecified type D64.9 ; Vertigo R42 and Coronary artery disease involving muckleshoot coronary artery of muckleshoot heart without angina pectoris I25.10 [place] [id number] [place] [address] Jun, Chest wall pain R07.89 [facility] [id number] [place] [address] Apr, Chest wall pain R07.89 [facility] [id number] [place] [address] Apr, [facility] [id number] [place] [address] Apr, Dental abscess K04.7 [facility] [id number] [place] [address] Apr, [facility] [id number] [place] [address] Apr, Chest wall pain R07.89 [facility] [id number] [place] [address] Mar, Chest wall pain R07.89 [facility] [id number] [place] [address] Feb, Chest wall pain R07.89 ; Lateral epicondylitis of right elbow M77.11 and Mixed hyperlipidemia E78.2 [facility] [id number] [place] [address] Feb, Chest wall pain R07.89 [facility] [id number] [place] [address] January, [facility] [id number] [place] [address] January, Chest wall pain R07.89 [facility] [id number] [place] [address] Dec, Chest wall pain R07.89 [facility] [id number] [place] [address] Nov, [facility] [id number] [place] [address] Nov, Hypokalemia E87.6 [facility] [id number] [place] [address] Nov, Hypokalemia E87.6 and Iron deficiency anemia, unspecified iron deficiency anemia type D50.9 [facility] [id number] [place] [address] Nov, [facility] [id number] [place] [address] Nov, Nausea R11.0 and Hypovolemia E86.1 [facility] [id number] [place] [address] Nov, [facility] [id number] [place] [address] Nov, [facility] [id number] [place] [address] Nov, Chest wall pain R07.89 [facility] [id number] [place] [address] Nov, Bronchitis J40 [facility] [address] [address] 09 Oct, 2016 Chest wall pain R07.89 [facility] [id number] [place] [address] Sep, Chest wall pain R07.89 [facility] [id number] [place] [address] Aug, Chest wall pain R07.89 [facility] [id number] [place] [address] Aug, Chest pain on breathing R07.1 [facility] [id number] [place] [address] Jul, [facility] [id number] [place] [address] 07 Jun, 2016 [facility] [id number] [place] [address] 16 May, 2016 Chest wall pain R07.89 ; Iron deficiency anemia, unspecified iron deficiency anemia type D50.9 ; Chronic kidney disease N18.9 and Encounter for immunization Z23 [facility] [id number] [place] [address] 09 May, 2016 [facility] [id number] [place] [address] Apr, [facility] [id number] [place] [address] Mar, [facility] [id number] [place] [address] Mar, [facility] [id number] [place] [address] Feb, [facility] [address] [address] Feb, Iron deficiency anemia, unspecified iron deficiency anemia type D50.9 [facility] [address] [address] Feb, Dehydration E86.0 ; Diarrhea, unspecified type R19.7 ; Dizziness R42 and Other specified hypotension I95.89 [place] [address] [address] Feb, Anemia, unspecified type D64.9 [facility] [id number] [place] [address] January, Anemia, unspecified type D64.9 [place] [id number] [place] [address] January, Paresthesia R20.2 [place] [id number] [place] [address] January, Chest wall pain R07.89 [facility] [id number] [place] [address] Dec, Insomnia G47.00 [place] [address] [address] Dec, Chest pain on breathing R07.1 [facility] [id number] [place] [address] Nov, Chest pain on breathing R07.1 [facility] [address] [place] [address] Oct, [facility] [id number] [place] [address] Oct, [facility] [id number] [place] [address] Oct, Low back pain M54.5 and Chest wall pain R07.89 [facility] [address] [address] Oct, Pleurodynia R07.81 [facility] [id number] [place] [address] Sep, Pleurodynia R07.81 and Other nerve root and plexus disorders G54.8 [facility] [id number] [place] [address] Aug, Chronic kidney disease N18.9 ; Encounter for immunization Z23 ; Chest wall pain R07.89 ; Urinary frequency R35.0 and Vertigo R42 [facility] [id number] [place] [address] Aug, [facility] [id number] [place] [address] Jul, [facility] [id number] [place] [address] Jul, [facility] [id number] [place] [address] Jun, [facility] [id number] [place] [address] Jun, [facility] [id number] [place] [address] May, [facility] [id number] [place] [address] May, [facility] [id number] [place] [address] May, [facility] [address] [id number], [place] [address] May, Coronary atherosclerosis of unspecified type of vessel, muckleshoot or graft 414.00 [facility] [address] [id number] [place] [address] Apr, [facility] [address] [id number], [place] [address] Apr, [facility] [address] [id number], [place] [address] Apr, [facility] [address] [id number] [place] [address] Apr, [facility] [address] [id number], [place] [address] Apr, [facility] [address] [id number], [place] [address] Apr, Coronary atherosclerosis of unspecified type of vessel, muckleshoot or graft 414.00 and Left-sided chest wall pain 786.52 [facility] [address] [id number], [place] [address] Mar, [facility] [address] [id number], [place] [address] Mar, [facility] [address] [id number], [place] [address] Feb, [facility] [address] [id number], [place] [address] Feb, [facility] [address] [id number], [place] [address] January, [facility] [address] [id number], [place] [address] January, [facility] [address] [id number], [place] [address] January, [facility] [address] [facility] [id number] [place] [address] January, Neuropathic pain of chest 353.8 [facility] [place] [facility] [address] [id number] [place] [address] 14 Dec, 2014 [facility] [place] [facility] [address] [facility] [id number] [place] [address] Dec, [facility] [place] [facility] [address] [facility] [id number] [place] [address] Nov, [facility] [place] [facility] [address] [facility] [id number] [place] [address] Nov, [facility] [place] [facility] [address] [facility] [id number] [place] [address] Nov, [facility] [place] [facility] [id number] [place] [address] Nov, [facility] [place] [facility] [address] [facility] [id number], [place] [address] Nov, [facility] [place] [facility] [address] [place] [id number] [place] [address] Nov, [facility] [place] [facility] [id number] [place] [address] Oct, [facility] [place] [facility] [address] [id number], [place] [address] Oct, [facility] [place] [facility] [address] [facility] [id number], [place] [address] Oct, [facility] [place] [facility] [address] [facility] [id number] [place] [address] Oct, [facility] [place] [facility] [address] [facility] [id number], [place] [address] Oct, [facility] [place] [facility] [address] [facility] [id number] [place] [address] Oct, [facility] [place] [facility] [address] [id number] [place] [address] Sep, [facility] [place] [facility] [address] [id number] [place] [address] Sep, [facility] [place] [facility] [address] [id number] [place] [address] Sep, [facility] [place] [facility] [address] [id number] [place] [address] Sep, [facility] [place] [facility] [address] [id number] [place] [address] Aug, [facility] [place] [facility] [address] [id number] [place] [address] Aug, [facility] [place] [facility] [address] [id number] [place] [address] Aug, [facility] [place] [facility] [address] [id number] [place] [address] Aug, [facility] [place] [facility] [address] [id number] [place] [address] Aug, [facility] [place] [facility] [address] [id number] [place] [address] Aug, [facility] [place] [facility] [address] [id number] [place] [address] Aug, [facility] [place] [facility] [address] [id number] [place] [address] Aug, [facility] [place] [facility] [address] [id number] [place] [address] Aug, [facility] [place] [facility] [address] [id number] [place] [address] Aug, [facility] [place] [facility] [address] [id number] [place] [address] Jul, [facility] [place] [facility] [address] [id number] [place] [address] Jul, [facility] [place] [facility] [address] [id number] [place] [address] Jul, [facility] [place] [facility] [address] [id number] [place] [address] Jul, [facility] [place] [facility] [address] [id number] [place] [address] Jun, [facility] [place] [facility] [address] [id number] [place] [address] Jun, [facility] [place] [facility] [address] [id number] [place] [address] Jun, [facility] [place] [facility] [address] [id number] [place] [address] Jun, [facility] [place] [facility] [address] [id number] [place] [address] May, [facility] [place] [facility] [address] [id number] [place] [address] May, [facility] [place] [facility] [address] [id number] [place] [address] May, [facility] [place] [facility] [address] [id number] [place] [address] May, [facility] [place] [facility] [address] [id number], [place] [address] Apr, [facility] [place] [facility] [address] [id number], [place] [address] Apr, [facility] [place] [facility] [address] [id number] [place] [address] Feb, [facility] [place] [facility] [address] [id number], [place] [address] January, [facility] [place] [facility] [address] [id number] [place] [address] January, [facility] [place] [facility] [address] [id number] [place] [address] January, [facility] [address] [id number] [place] [address] January, [facility] [place] [facility] [address] [id number] [place] [address] January, [facility] [place] [facility] [address] [id number] [place] [address] January, [facility] [place] [facility] [address] [id number] [place] [address] Dec, [facility] [place] [facility] [address] [id number] [place] [address] Dec, [facility] [place] [facility] [address] [id number] [place] [address] Dec, [facility] [place] [facility] [address] [id number] [place] [address] Dec, [facility] [place] [facility] [address] [id number] [place] [address] Dec, [facility] [place] [facility] [address] [id number] [place] [address] Dec, [facility] [place] [facility] [address] [id number] [place] [address] Dec, [facility] [place] [facility] [address] [id number] [place] [address] Dec, [facility] [place] [facility] [address] [id number] [place] [address] Nov, [facility] [place] [facility] [address] [id number] [place] [address] Nov, [facility] [place] [facility] [address] [id number] [place] [address] Nov, [facility] [place] [facility] [address] [id number] [place] [address] Nov, [facility] [place] [facility] [address] [id number] [place] [address] Nov, [facility] [place] [facility] [address] [id number] [place] [address] Nov, [facility] [place] [facility] [address] [id number] [place] [address] Nov, [facility] [place] [facility] [address] [id number] [place] [address] Oct, [facility] [place] [facility] [address] [id number] [place] [address] Oct, [facility] [place] [facility] [address] [id number] [place] [address] Oct, [facility] [place] [facility] [address] [id number] [place] [address] Oct, [facility] [place] [facility] [address] [id number] [place] [address] Sep, [facility] [place] [facility] [address] [id number] [place] [address] Sep, [facility] [place] [facility] [address] [id number] [place] [address] Sep, [facility] [place] [facility] [address] [id number] [place] [address] Sep, [facility] [place] [facility] [address] [id number] [place] [address] Aug, [facility] [place] [facility] [address] [id number] [place] [address] Aug, [facility] [place] [facility] [address] [id number] [place] [address] Jul, [facility] [place] [facility] [address] [id number] [place] [address] Jul, [facility] [place] [facility] [address] [id number] [place] [address] Jun, [facility] [address] [id number] [place] [address] Jun, [facility] [place] [facility] [address] [id number] [place] [address] Jun, [facility] [address] [id number] [place] [address] May, [facility] [place] [facility] [address] [id number] [place] [address] Apr, [facility] [address] [id number] [place] [address] Apr, [facility] [place] [facility] [address] [id number] [place] [address] Mar, [facility] [address] [id number] [place] [address] Feb, [facility] [place] [facility] [address] [id number] [place] [address] Feb, [facility] [address] [id number] [place] [address] January, [facility] [place] [facility] [address] [facility] [id number] [place] [address] January, [facility] [address] [id number] [place] [address] Dec, [facility] [place] [facility] [address] [id number] [place] [address] Dec, [facility] [place] [facility] [address] [id number] [place] [address] Dec, [facility] [place] [facility] [address] [id number] [place] [address] Dec, [facility] [place] [facility] [address] [id number] [place] [address] Nov, [facility] [place] [facility] [address] [id number] [place] [address] Nov, [facility] [address] [id number] [place] [address] Oct, [facility] [place] [facility] [address] [id number] [place] [address] Oct, [facility] [place] [facility] [address] [id number] [place] [address] Oct, [facility] [place] [facility] [address] [id number] [place] [address] Sep, [facility] [place] [facility] [address] [id number] [place] [address] Sep, [facility] [address] [id number] [place] [address] Sep, [facility] [address] [id number] [place] [address] Sep, [facility] [address] [id number] [place] [address] Sep, [facility] [address] [id number] [place] [address] Aug, [facility] [address] [id number] [place] [address] Aug, [facility] [place] [facility] [address] [id number] [place] [address] Aug, [facility] [place] [facility] [address] [id number] [place] [address] Aug, [facility] [place] [facility] [address] [id number] [place] [address] Jul, [facility] [place] [facility] [address] [id number] [place] [address] Jul, [facility] [place] [facility] [address] [id number] [place] [address] Jul, [facility] [place] [facility] [address] [id number] [place] [address] Jul, [facility] [place] [facility] [address] [id number] [place] [address] Jun, [facility] [place] [facility] [address] [id number] [place] [address] Jun, [facility] [place] [facility] [address] [id number] [place] [address] Jun, [facility] [place] [facility] [address] [id number] [place] [address] Jun, [facility] [place] [facility] [address] [id number] [place] [address] Jun, [facility] [place] [facility] [address] [id number] [place] [address] 24 May, 2012 [facility] [place] [facility] [address] [id number] [place] [address] 13 May, 2012 [facility] [place] [facility] [address] [id number] [place] [address] 12 May, 2012 [facility] [place] [facility] [address] [id number] [place] [address] 11 May, 2012 [facility] [place] [facility] [address] [id number] [place] [address] 10 May, 2012 [facility] [place] [facility] [address] [id number] [address] 06 May, 2012 [facility] [place] [facility] [address] [id number] [place] [address] 05 May, 2012 [facility] [place] [facility] [address] [facility] [id number] [place] [address] 30 Apr, 2012 [facility] [place] [facility] [address] [id number] [place] [address] Apr, [facility] [place] [facility] [address] [id number] [place] [address] Apr, [facility] [address] [id number] [place] [address] Apr, [facility] [address] [id number] [place] [address] Apr, [facility] [address] [id number] [place] [address] Apr, [facility] [address] [id number] [place] [address] Apr, [facility] [address] [id number] [place] [address] Apr, [facility] [address] [id number] [place] [address] Mar, [facility] [address] [id number] [place] [address] Mar, [facility] [address] [id number] [place] [address] Mar, [facility] [address] [id number] [place] [address] Feb, [facility] [address] [id number] [place] [address] January, [facility] [place] [facility] [address] [id number] [place] [address] January, [facility] [address] [id number] [place] [address] January, [facility] [place] [facility] [address] [id number] [place] [address] Dec, [facility] [place] [facility] [address] [id number] [place] [address] Dec, [facility] [place] [facility] [address] [id number] [place] [address] Dec, [facility] [address] [facility] [id number] [place] [address] Dec, [facility] [address] [facility] [id number] [place] [address] Dec, [facility] [address] [facility] [id number] [place] [address] Dec, IMMUNIZATIONS No Known Immunizations SOCIAL HISTORY Never Assessed REASON FOR VISIT PLAN OF CARE VITAL SIGNS MEDICATIONS Medication Instructions Dosage Frequency Start Date End Date Duration Status Restoril 30 MG Orally Once a day 1 capsule at bedtime as needed 24h Oct, Active RESULTS No Results PROCEDURES No [...] 04/02/2012 Surgical History appendectomy age 10 at [facility] Surgical History cholecystectomy-[facility] 2007 Surgical History coronary artery bypass graft LAD 02/2012 Surgical History heart cath x2 after bypass, pt has 5 stents Hospitalization History Chest pain, dizziness, renal insuff, heat cath showed CAD ([facility]) 01/03/2012 Hospitalization History CABG ([facility]) Dr. Banks 02/2012
--- OUTSIDE RECORDS SUMMARY | 2019-05-03 09:57 | XMS REPORT ---
Author Author BEELM FUENTES [facility] eClinicalWorks Address Unknown Phone Unavailable Care Team Providers Care Parent Partner Name Role Phone BELEM FUENTES CP Unavailable Allergies No Known Allergies Problems Problem Type Condition ICD-9 Code Onset Dates Condition Status Problem Coronary atherosclerosis of unspecified type of vessel, [place] or graft 414.00 Active Problem Dizziness and giddiness 780.4 Active Problem Anxiety state, unspecified 300.00 Active Assessment Coronary atherosclerosis of unspecified type of vessel, [place] or graft 414.00 Active Problem Chronic airway obstruction, not elsewhere classified 496 Active Problem Painful respiration 786.52 Active Medications No Known Medications Procedures Procedure Coding System Code Date VENIPUNCT, ROUTINE* CPT-4 28884 May 27, 2015 [facility] NOBLL May 27, 2015 Results Name Result Date Reference Range Unit Abnormality Flag ROUTINE VENIPUNCTURE Summary Purpose eClinicalWorks Submission
--- OUTSIDE RECORDS SUMMARY | 2019-05-03 09:57 | XMS REPORT ---
Author Author BELEM FUENTES Organization [facility] Address [address] [place] [address] Care Team Providers Care Officer Captain Name Role Phone BELEM FUENTES Unavailable PROBLEMS Type Condition ICD9-CM Code FUR01-IA Code Onset Dates Condition Status SNOMED Code Problem Chronic kidney disease N18.9 Active 836850397 Problem Chest wall pain R07.89 Active 386543528 Problem Chronic fatigue R53.82 Active 14562687 Problem Coronary artery disease involving wy[place] coronary artery of wy[place] heart without angina pectoris I25.10 Active [id number] Problem Anemia, unspecified type D64.9 Active 952310146 Problem Vertigo R42 Active 917943463 Problem Mixed hyperlipidemia E78.2 Active 973141402 Problem Iron deficiency anemia, unspecified iron deficiency anemia type D50.9 Active 77783073 ALLERGIES No Information ENCOUNTERS Encounter Location Date Diagnosis [place] [id number] [place] [address] Feb, [place] [id number] [place] [address] January, Chest wall pain R07.89 [facility] [id number] [place] [address] Dec, Chest wall pain R07.89 ; Coronary artery disease involving wy[place] coronary artery of [place] heart without angina pectoris I25.10 and Vertigo R42 [facility] [id number] [place] [address] Dec, Chest wall pain R07.89 [facility] [id number] [place] [address] Nov, Chest wall pain R07.89 [facility] [id number] [place] [address] Oct, Chest wall pain R07.89 [facility] [id number] [place] [address] Sep, Chest wall pain R07.89 and Pleurodynia R07.81 [facility] [id number] [place] [address] Sep, [facility] [id number] [place] [address] Sep, Chest wall pain R07.89 and Sore throat J02.9 [place] [id number] [place] [address] Sep, [facility] [id number] [place] [address] Sep, Sore throat J02.9 and Acute nasopharyngitis J00 [facility] [id number] [place] [address] Sep, [facility] [id number] [place] [address] Aug, Chest wall pain R07.89 [facility] [id number] [place] [address] Jul, Chest wall pain R07.89 [facility] [id number] [place] [address] Jul, [facility] [id number] [place] [address] Jul, Chest wall pain R07.89 [facility] [id number] [place] [address] Jul, Chest wall pain R07.89 ; Chronic fatigue R53.82 ; Anemia, unspecified type D64.9 ; Vertigo R42 and Coronary artery disease involving wy[place] coronary artery of wy[place] heart without angina pectoris I25.10 [facility] [address] [address] Jun, Chest wall pain R07.89 [facility] [id number] [place] [address] Apr, Chest wall pain R07.89 [facility] [address] [address] Apr, [facility] [id number] [place] [address] Apr, Dental abscess K04.7 [facility] [id number] [place] [address] Apr, [facility] [id number] [place] [address] Apr, Chest wall pain R07.89 [facility] [id number] [place] [address] Mar, Chest wall pain R07.89 [facility] [id number] [place] [address] Feb, Chest wall pain R07.89 ; Lateral epicondylitis of right elbow M77.11 and Mixed hyperlipidemia E78.2 [facility] [address] [address] Feb, Chest wall pain R07.89 [facility] [id number] [place] [address] January, [facility] [id number] [place] [address] January, Chest wall pain R07.89 [facility] [id number] [place] [address] Dec, Chest wall pain R07.89 [facility] [id number] [place] [address] Nov, [facility] [id number] [place] [address] Nov, Hypokalemia E87.6 [facility] [id number] [place] [address] Nov, Hypokalemia E87.6 and Iron deficiency anemia, unspecified iron deficiency anemia type D50.9 [facility] [address] [address] Nov, [facility] [address] [address] Nov, Nausea R11.0 and Hypovolemia E86.1 [facility] [address] [address] Nov, [facility] [address] [address] Nov, [facility] [address] [address] Nov, Chest wall pain R07.89 [facility] [address] [address] Nov, Bronchitis J40 [facility] [id number] [place] [address] Oct, Chest wall pain R07.89 [facility] [id number] [place] [address] Sep, Chest wall pain R07.89 [facility] [id number] [place] [address] Aug, Chest wall pain R07.89 [facility] [address] [address] Aug, Chest pain on breathing R07.1 [facility] [id number] [place] [address] Jul, [facility] [address] [place] [address] 07 Jun, 2016 [facility] [id number] [place] [address] May, Chest wall pain R07.89 ; Iron deficiency anemia, unspecified iron deficiency anemia type D50.9 ; Chronic kidney disease N18.9 and Encounter for immunization Z23 [facility] [id number] [place] [address] May, [facility] [address] [address] Apr, [place] [address] [address] Mar, [place] [address] [address] Mar, [place] [address] [address] Feb, [facility] [id number] [place] [address] Feb, Iron deficiency anemia, unspecified iron deficiency anemia type D50.9 [facility] [id number] [place] [address] Feb, Dehydration E86.0 ; Diarrhea, unspecified type R19.7 ; Dizziness R42 and Other specified hypotension I95.89 [place] [id number] [place] [address] Feb, Anemia, unspecified type D64.9 [facility] [id number] [place] [address] January, Anemia, unspecified type D64.9 [place] [id number] [place] [address] January, Paresthesia R20.2 [facility] [id number] [place] [address] January, Chest wall pain R07.89 [facility] [id number] [place] [address] Dec, Insomnia G47.00 [facility] [address] [address] Dec, Chest pain on breathing R07.1 [facility] [address] [address] Nov, Chest pain on breathing R07.1 [facility] [address] [address] Oct, [facility] [address] [address] Oct, [facility] [address] [address] Oct, Low back pain M54.5 and Chest wall pain R07.89 [facility] [id number] [place] [address] Oct, Pleurodynia R07.81 [facility] [address] [address] Sep, Pleurodynia R07.81 and Other nerve root and plexus disorders G54.8 [facility] [id number] [place] [address] Aug, Chronic kidney disease N18.9 ; Encounter for immunization Z23 ; Chest wall pain R07.89 ; Urinary frequency R35.0 and Vertigo R42 [facility] [address] [address] Aug, [facility] [address] [address] Jul, [facility] [address] [address] Jul, [facility] [address] [address] Jun, [facility] [address] [address] Jun, [facility] [address] [address] May, [facility] [address] [address] May, [facility] [address] [address] May, [facility] [address] [place] [address] May, Coronary atherosclerosis of unspecified type of vessel, wy[place] or graft 414.00 [facility] [address] [address] Apr, [facility] [address] [address] Apr, [facility] [address] [address] Apr, [facility] [address] [address] Apr, [facility] [address] [address] Apr, [facility] [address] [address] Apr, Coronary atherosclerosis of unspecified type of vessel, wy[place] or graft 414.00 and Left-sided chest wall pain 786.52 [facility] [address] [address] Mar, [facility] [address] [address] Mar, [facility] [address] [address] Feb, [facility] [address] [id number] [place] [address] Feb, [facility] [address] [facility] [id number] [place] [address] January, [facility] [address] [facility] [id number] [place] [address] January, [facility] [address] [facility] [id number] [place] [address] January, [facility] [address] [facility] [id number] [place] [address], [place] [address] January, Neuropathic pain of chest 353.8 [facility] [address] [id number] [place] [address] Dec, [facility] [id number] [place] [address], [place] [address] Dec, [facility] [address] [facility] [id number] [address] Nov, [facility] [address] [facility] [id number] [place] [address] Nov, [facility] [address] [facility] [id number] [place] [address] Nov, [facility] [address] [facility] [id number] [place] [address] Nov, [facility] [address] [facility] [id number] [address] Nov, [facility] [address] [facility] [id number] [place] [address] Nov, [facility] [address] [facility] [id number] [place] [address] Oct, [facility] [address] [facility] [id number] [place] [address] Oct, [facility] [place] [facility] [address] [id number] [place] [address] Oct, [facility] [place] [facility] [address] [id number] [place] [address] Oct, [facility] [place] [facility] [address] [id number] [place] [address] Oct, [facility] [place] [facility] [address] [id number] [place] [address] Oct, [facility] [place] [facility] [address] [id number] [place] [address] Sep, [facility] [place] [facility] [address] [id number] [place] [address] Sep, [facility] [place] [facility] [address] [id number] [place] [address] Sep, [facility] [place] [facility] [address] [id number] [place] [address] Sep, [facility] [place] [facility] [address] [id number] [place] [address] Aug, [facility] [place] [facility] [address] [id number] [place] [address] Aug, [facility] [place] [facility] [address] [id number] [place] [address] Aug, [facility] [place] [facility] [address] [id number] [place] [address] Aug, [facility] [place] [facility] [address] [id number] [place] [address] Aug, [facility] [place] [facility] [address] [id number] [place] [address] Aug, [facility] [place] [facility] [address] [id number] [place] [address] Aug, [facility] [place] [facility] [address] [id number] [place] [address] Aug, [facility] [place] [facility] [address] [id number] [place] [address] Aug, [facility] [place] [facility] [address] [id number] [place] [address] Aug, [facility] [place] [facility] [address] [id number] [place] [address] Jul, [facility] [place] [facility] [address] [id number] [place] [address] Jul, [facility] [place] [facility] [address] [id number] [place] [address] Jul, [facility] [place] [facility] [address] [id number] [place] [address] Jul, [facility] [place] [facility] [address] [id number] [place] [address] Jun, [facility] [place] [facility] [address] [id number] [place] [address] Jun, [facility] [place] [facility] [address] [id number] [place] [address] Jun, [facility] [place] [facility] [address] [facility] [id number] [place] [address] Jun, [facility] [place] [facility] [address] [id number] [place] [address] May, [facility] [place] [facility] [address] [id number] [place] [address] May, [facility] [place] [facility] [address] [id number] [place] [address] May, [facility] [place] [facility] [address] [facility] [id number] [place] [address] May, [facility] [place] [facility] [address] [id number] [place] [address] Apr, [facility] [place] [facility] [address] [id number] [place] [address] Apr, [facility] [place] [facility] [address] [id number] [place] [address] Feb, [facility] [place] [facility] [address] [id number] [place] [address] January, [facility] [place] [facility] [address] [id number] [place] [address] January, [facility] [address] [id number] [place] [address] January, [facility] [place] [facility] [address] [id number] [place] [address] January, [facility] [place] [facility] [address] [id number] [place] [address] January, [facility] [place] [facility] [address] [id number] [place] [address] January, [facility] [place] [facility] [address] [id number] [place] [address] Dec, [facility] [place] [facility] [address] [id number] [place] [address] Dec, [facility] [place] [facility] [address] [id number] [place] [address] Dec, [facility] [place] [facility] [address] [id number] [place] [address] Dec, [facility] [place] [facility] [address] [id number] [place] [address] Dec, [facility] [place] [facility] [address] [id number] [place] [address] Dec, [facility] [place] [facility] [address] [id number] [place] [address] Dec, [facility] [place] [facility] [address] [id number] [place] [address] Dec, [facility] [place] [facility] [address] [id number] [place] [address] Nov, [facility] [place] [facility] [address] [id number] [place] [address] Nov, [facility] [place] [facility] [address] [id number] [place] [address] Nov, [facility] [place] [facility] [address] [id number] [place] [address] Nov, [facility] [place] [facility] [address] [id number] [place] [address] Nov, [facility] [place] [facility] [address] [id number] [place] [address] Nov, [facility] [place] [facility] [address] [id number] [place] [address] Nov, [facility] [place] [facility] [address] [id number] [place] [address] Oct, [facility] [place] [facility] [address] [id number] [place] [address] Oct, [facility] [place] [facility] [address] [id number] [place] [address] Oct, [facility] [place] [facility] [address] [id number] [place] [address] Oct, [facility] [place] [facility] [address] [id number] [place] [address] Sep, [facility] [place] [facility] [address] [id number] [place] [address] Sep, [facility] [place] [facility] [address] [id number] [place] [address] Sep, [facility] [place] [facility] [address] [id number] [place] [address] Sep, [facility] [place] [facility] [address] [id number] [place] [address] Aug, [facility] [place] [facility] [address] [id number] [place] [address] Aug, [facility] [place] [facility] [address] [id number] [place] [address] Jul, [facility] [place] [facility] [address] [id number] [place] [address] Jul, [facility] [place] [facility] [address] [id number] [place] [address] Jun, [facility] [place] [facility] [address] [id number] [place] [address] Jun, [facility] [place] [facility] [address] [id number] [place] [address] Jun, [facility] [place] [facility] [address] [id number] [place] [address] May, [facility] [place] [facility] [address] [id number] [place] [address] Apr, [facility] [place] [facility] [address] [id number] [place] [address] Apr, [facility] [place] [facility] [address] [id number] [place] [address] Mar, [facility] [place] [facility] [address] [id number] [place] [address] Feb, [facility] [place] [facility] [address] [id number] [place] [address] Feb, [facility] [place] [facility] [address] [id number] [place] [address] January, [facility] [place] [facility] [address] [id number] [place] [address] January, [facility] [place] [facility] [address] [id number] [place] [address] Dec, [facility] [address] [id number] [place] [address] Dec, [facility] [place] [facility] [address] [id number] [place] [address] Dec, [facility] [place] [facility] [address] [id number] [place] [address] Dec, [facility] [place] [facility] [address] [id number] [place] [address] Nov, [facility] [address] [id number] [place] [address] Nov, [facility] [place] [facility] [address] [id number] [place] [address] Oct, [facility] [place] [facility] [address] [id number] [place] [address] Oct, [facility] [place] [facility] [address] [id number] [place] [address] Oct, [facility] [address] [id number] [place] [address] Sep, [facility] [place] [facility] [address] [id number] [place] [address] Sep, [facility] [place] [facility] [address] [id number] [place] [address] Sep, [facility] [place] [facility] [address] [id number] [place] [address] Sep, [facility] [place] [facility] [address] [id number] [place] [address] Sep, [facility] [place] [facility] [address] [id number] [place] [address] Aug, [facility] [place] [facility] [address] [id number] [place] [address] Aug, [facility] [place] [facility] [address] [id number] [place] [address] 14 Aug, 2012 [facility] [address] [id number] [place] [address] 14 Aug, 2012 [facility] [place] [facility] [address] [id number] [place] [address] Jul, [facility] [place] [facility] [address] [id number] [place] [address] Jul, [facility] [place] [facility] [address] [id number] [place] [address] Jul, [facility] [place] [facility] [address] [id number] [place] [address], [place] [address] Jul, [facility] [place] [facility] [address] [id number] [place] [address] Jun, [facility] [place] [facility] [address] [facility] [id number] [place] [address] Jun, [facility] [place] [facility] [address] [id number] [place] [address] Jun, [facility] [place] [facility] [address] [facility] [id number] [place] [address] Jun, [facility] [place] [facility] [address] [facility] [id number] [place] [address] Jun, [facility] [place] [facility] [address] [id number] [place] [address] 24 May, 2012 [facility] [place] [facility] [address] [id number] [place] [address] 13 May, 2012 [facility] [place] [facility] [address] [id number] [place] [address] 12 May, 2012 [facility] [place] [facility] [address] [facility] [id number] [place] [address] 11 May, 2012 [facility] [place] [facility] [address] [facility] [id number] [place] [address] May, [facility] [place] [facility] [address] [id number] [place] [address] May, [facility] [place] [facility] [address] [id number] [place] [address] May, [facility] [place] [facility] [address] [id number] [place] [address] Apr, [facility] [place] [facility] [address] [id number] [place] [address] Apr, [facility] [place] [facility] [address] [id number] [place] [address] Apr, [facility] [place] [facility] [address] [id number] [place] [address] Apr, [facility] [place] [facility] [address] [id number] [place] [address] Apr, [facility] [place] [facility] [address] [id number] [place] [address] Apr, [facility] [place] [facility] [address] [id number] [place] [address] Apr, [facility] [place] [facility] [address] [id number] [place] [address] Apr, [facility] [place] [facility] [address] [id number] [place] [address] Mar, [facility] [place] [facility] [address] [id number] [place] [address] Mar, [facility] [place] [facility] [address] [id number] [place] [address] Mar, [facility] [place] [facility] [address] [id number] [place] [address] Feb, [facility] [place] [facility] [address] [id number] [place] [address] January, [facility] [place] [facility] [address] [id number] [address] January, [facility] [address] [id number] [address] January, [facility] [address] [id number] [address] Dec, [facility] [address] [id number] [address] Dec, [facility] [address] [id number] [address] Dec, [facility] [id number] [address] Dec, [facility] [id number] [address] Dec, [facility] [id number] [address] Dec, IMMUNIZATIONS No Known Immunizations SOCIAL HISTORY Never Assessed REASON FOR VISIT Hydrocodone 09/21 PLAN OF CARE VITAL SIGNS MEDICATIONS Medication Instructions Dosage Frequency Start Date End Date Duration Status Hydrocodone-Acetaminophen 7.5-325 MG Orally, 5 times per day 2 tablet Aug, 30 days Active RESULTS No Results PROCEDURES [...]
--- OUTSIDE RECORDS SUMMARY | 2019-05-03 09:57 | XMS REPORT ---
Author Author BELEM FUENTES Organization [employer] Address Unknown Phone Unavailable Care Team Providers Care Environmental Communications Specialist Name Role Phone BELEM FUENTES CP Unavailable Allergies No Known Allergies Problems Problem Type Condition ICD-9 Code Onset Dates Condition Status Problem Coronary atherosclerosis of unspecified type of vessel, [place] or graft 414.00 Active Problem Dizziness and giddiness 780.4 Active Problem Anxiety state, unspecified 300.00 Active Problem Chronic airway obstruction, not elsewhere classified 496 Active Problem Painful respiration 786.52 Active Medications Medication Code System Code Instructions Start Date End Date Status Dosage Hydrocodone-Acetaminophen [facility] [address]-21 7.5-325 MG Orally every 6 hrs December 10, 2014 1-2 tablet as needed Results No Known Results Summary Purpose [employer] Submission
--- OUTSIDE RECORDS SUMMARY | 2019-05-03 09:58 | XMS REPORT ---
Author Author BELEM FUENTES [facility] [employer] Address Unknown Phone Unavailable Care Team Providers Care Kosher Sealer Name Role Phone BELEM FUENTES CP Unavailable Allergies No Known Allergies Problems Problem Type Condition ICD-9 Code Onset Dates Condition Status Problem Coronary atherosclerosis of unspecified type of vessel, [place] or graft 414.00 Active Problem Dizziness and giddiness 780.4 Active Problem Anxiety state, unspecified 300.00 Active Problem Chronic airway obstruction, not elsewhere classified 496 Active Problem Painful respiration 786.52 Active Medications Medication Code System Code Instructions Start Date End Date Status Dosage Hydrocodone-Acetaminophen [facility] [address]-35 7.5-325 MG Orally every 6 hrs December 10, 2014 1 tablet as needed Results No Known Results Summary Purpose [employer] Submission
--- OUTSIDE RECORDS SUMMARY | 2019-05-03 09:58 | XMS REPORT ---
Author Author BELEM FUENTES Organization [employer] Address Unknown Phone Unavailable Care Team Providers Care [employer] Officer Name Role Phone BELEM FUENTES CP Unavailable [...]
--- OUTSIDE RECORDS SUMMARY | 2019-05-03 09:58 | XMS REPORT ---
Author Author BELEM FUENTES Organization [employer] Address Unknown Phone Unavailable Care Team Providers Care Drum Worker Name Role Phone BELEM FUENTES CP Unavailable Allergies No Known Allergies Problems Problem Type Condition ICD-9 Code Onset Dates Condition Status Problem Coronary atherosclerosis of unspecified type of vessel, [place] or graft 414.00 Active Problem Dizziness and giddiness 780.4 Active Problem Anxiety state, unspecified 300.00 Active Problem Chronic airway obstruction, not elsewhere classified 496 Active Problem Painful respiration 786.52 Active Medications Medication Code System Code Instructions Start Date End Date Status Dosage Diclofenac Sodium [facility] [address]-68 75 MG Orally 2 times a day ONE TABLET Results No Known Results Summary Purpose [employer] Submission
--- OUTSIDE RECORDS SUMMARY | 2019-05-03 09:58 | XMS REPORT ---
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 I25.10 Active 6929596104877 Problem Anemia, unspecified type D64.9 Active 121845961 Problem Vertigo R42 Active 273506160 Problem Mixed hyperlipidemia E78.2 Active 638525767 Problem Iron deficiency anemia, unspecified iron deficiency anemia type D50.9 Active 34511800 ALLERGIES No Information ENCOUNTERS Encounter Location Date Diagnosis [place] [address] [address] Dec, [facility] [id number] [place] [address] Nov, [place] [address] [place] [id number] [place] [address] Oct, Chest wall pain R07.89 [facility] [id number] [place] [address] Sep, Chest wall pain R07.89 and Pleurodynia R07.81 [place] [address] [place] [id number] [place] [address] Sep, [facility] [id number] [place] [address] Sep, Chest wall pain R07.89 and Sore throat J02.9 [facility] [id number] [place] [address] Sep, [facility] [id number] [place] [address] Sep, Sore throat J02.9 and Acute nasopharyngitis J00 [facility] [address] [id number] [place] [address] Sep, [facility] [id number] [place] [address] Aug, Chest wall pain R07.89 [facility] [id number] [place] [address] Jul, Chest wall pain R07.89 [facility] [address] [id number] [place] [address] Jul, [facility] [address] [address] Jul, Chest wall pain R07.89 [facility] [id number] [place] [address] Jul, Chest wall pain R07.89 ; Chronic fatigue R53.82 ; Anemia, unspecified type D64.9 ; Vertigo R42 and Coronary artery disease involving ione coronary artery of ione heart without angina pectoris I25.10 [facility] [id number] [place] [address] Jun, Chest wall pain R07.89 [facility] [id number] [place] [address] Apr, Chest wall pain R07.89 [facility] [id number] [place] [address] Apr, [facility] [id number] [place] [address] Apr, Dental abscess K04.7 [facility] [address] [place] [address] [address] Apr, [facility] [id number] [place] [address] Apr, Chest wall pain R07.89 [facility] [id number] [place] [address] Mar, Chest wall pain R07.89 [facility] [id number] [place] [address] Feb, Chest wall pain R07.89 ; Lateral epicondylitis of right elbow M77.11 and Mixed hyperlipidemia E78.2 [facility] [address] [id number] [place] [address] Feb, Chest wall pain R07.89 [facility] [id number] [place] [address] January, [facility] [id number] [place] [address] January, Chest wall pain R07.89 [facility] [id number] [place] [address] Dec, Chest wall pain R07.89 [facility] [id number] [place] [address] Nov, [facility] [id number] [place] [address] Nov, Hypokalemia E87.6 [facility] [id number] [place] [address] Nov, Hypokalemia E87.6 and Iron deficiency anemia, unspecified iron deficiency anemia type D50.9 [facility] [address] [id number] [address] Nov, [facility] [address] [id number] [place] [address] 21 Mar, 2017 Nausea R11.0 and Hypovolemia E86.1 [facility] [id number] [place] [address] Nov, [facility] [id number] [place] [address] Nov, [facility] [id number] [place] [address] Nov, Chest wall pain R07.89 [facility] [address] [address] Nov, Bronchitis J40 [facility] [address] [address] Oct, Chest wall pain R07.89 [facility] [address] [id number] [place] [address] Sep, Chest wall pain R07.89 [facility] [address] [id number] [place] [address] Aug, Chest wall pain R07.89 [facility] [address] [id number] [place] [address] Aug, Chest pain on breathing R07.1 [facility] [id number] [place] [address] Jul, [facility] [id number] [place] [address] Jun, [facility] [id number] [place] [address] 16 May, 2016 Chest wall pain R07.89 ; Iron deficiency anemia, unspecified iron deficiency anemia type D50.9 ; Chronic kidney disease N18.9 and Encounter for immunization Z23 [facility] [id number] [place] [address] 09 May, 2016 [facility] [id number] [place] [address] Apr, [facility] [address] [place] [address] Mar, [facility] [id number] [place] [address] Mar, [facility] [id number] [place] [address] Feb, [facility] [id number] [place] [address] Feb, Iron deficiency anemia, unspecified iron deficiency anemia type D50.[address] [facility] [address] [id number] [place] [address] Feb, Dehydration E86.0 ; Diarrhea, unspecified type R19.7 ; Dizziness R42 and Other specified hypotension I95.89 [place] [address] [place] [address] [place] [address] Feb, Anemia, unspecified type D64.9 [facility] [address] [place] [address] [place] [address] January, Anemia, unspecified type D64.9 [place] [address] [place] [address] [place] [address] January, Paresthesia R20.2 [place] [address] [place] [address] [place] [address] January, Chest wall pain R07.89 [facility] [address] [place] [address] [place] [address] Dec, Insomnia G47.00 [place] [address] [place] [address] [place] [address] Dec, Chest pain on breathing R07.1 [facility] [address] [place] [address] [place] [address] Nov, Chest pain on breathing R07.1 [facility] [address] [place] [address] [place] [address] Oct, [facility] [id number] [place] [address] Oct, [facility] [address] [place] [address] Oct, Low back pain M54.5 and Chest wall pain R07.89 [facility] [address] [address] Oct, Pleurodynia R07.81 [facility] [address] [place] [place] [address] Sep, Pleurodynia R07.81 and Other nerve root and plexus disorders G54.8 [facility] [address] [place] [address] Aug, Chronic kidney disease N18.9 ; Encounter for immunization Z23 ; Chest wall pain R07.89 ; Urinary frequency R35.0 and Vertigo R42 [facility] [id number] [place] [address] Aug, [facility] [address] [place] [address] Jul, [facility] [address] [place] [address] Jul, [facility] [id number] [place] [address] Jun, [facility] [address] [place] [address] Jun, [facility] [id number] [place] [address] May, [facility] [id number] [place] [address] May, [facility] [id number] [place] [address] May, [facility] [address] [id number] [address] May, Coronary atherosclerosis of unspecified type of vessel, ione or graft 414.00 [facility] [address] [id number], [place] [address] Apr, [facility] [address] [id number], [place] [address] Apr, [facility] [address] [id number], [place] [address] Apr, [facility] [address] [id number], [place] [address] Apr, [facility] [address] [id number], [place] [address] Apr, [facility] [address] [facility] [id number][place] [address] Apr, Coronary atherosclerosis of unspecified type of vessel, ione or graft 414.00 and Left-sided chest wall pain 786.52 [facility] [address] [address] Mar, [facility] [address] [facility] [place] [id number] [address] Mar, [facility] [address] [facility] [id number], [place] [address] Feb, [facility] [address] [facility] [place] [id number], [place] [address] Feb, [facility] [address] [facility] [place] [id number], [place] [address] January, [facility] [address] [facility] [place] [id number], [place] [address] January, [facility] [address] [facility] [place] [id number], [place] [address] January, [facility] [address] [id number] [place] [address] 2015 Neuropathic pain of chest 353.8 [facility] [place] [facility] [address] [id number] [place] [address] 14 Dec, 2014 [facility] [place] [facility] [address] [id number] [place] [address] 13 Dec, 2014 [facility] [place] [facility] [address] [id number] [place] [address] Nov, [facility] [place] [facility] [address] [id number] [place] [address] Nov, [facility] [place] [facility] [address] [id number] [place] [address] Nov, [facility] [place] [facility] [address] [facility] [place] [id number] [place] [address] Nov, [facility] [place] [facility] [address] [facility] [id number], [place] [address] Nov, [facility] [place] [facility] [address] [facility] [place] [id number] [place] [address] Nov, [facility] [place] [facility] [address] [facility] [place] [id number] [place] [address] Oct, [facility] [place] [facility] [address] [facility] [place] [id number] [place] [address] Oct, [facility] [place] [facility] [address] [facility] [place] [id number], [place] [address] Oct, [facility] [place] [facility] [address] [facility] [place] [id number] [place] [address] Oct, [facility] [place] [facility] [address] [facility] [place] [id number][place] [address] Oct, [facility] [place] [facility] [address] [facility] [id number] [place] [address] Oct, [facility] [place] [facility] [address] [facility] [place] [id number] [place] [address] Sep, [facility] [place] [facility] [address] [id number] [place] [address] Sep, [facility] [place] [facility] [address] [id number] [place] [address] Sep, [facility] [place] [facility] [address] [id number] [place] [address] Sep, [facility] [place] [facility] [address] [id number] [place] [address] Aug, [facility] [place] [facility] [address] [id number] [place] [address] Aug, [facility] [place] [facility] [address] [id number] [place] [address] Aug, [facility] [place] [facility] [address] [id number] [place] [address] Aug, [facility] [place] [facility] [address] [id number] [place] [address] Aug, [facility] [place] [facility] [address] [id number] [place] [address] Aug, [facility] [place] [facility] [address] [id number] [place] [address] Aug, [facility] [place] [facility] [address] [id number] [place] [address] Aug, [facility] [place] [facility] [address] [id number] [place] [address] Aug, [facility] [place] [facility] [address] [id number] [place] [address] Aug, [facility] [place] [facility] [address] [id number] [place] [address] Jul, [facility] [place] [facility] [address] [id number] [place] [address] Jul, [facility] [place] [facility] [address] [id number] [place] [address] Jul, [facility] [place] [facility] [address] [id number] [place] [address] Jul, [facility] [place] [facility] [address] [id number] [place] [address] Jun, [facility] [place] [facility] [address] [id number] [place] [address] Jun, [facility] [place] [facility] [address] [id number] [place] [address] Jun, [facility] [place] [facility] [address] [id number] [place] [address] Jun, [facility] [place] [facility] [address] [id number] [place] [address] May, [facility] [place] [facility] [address] [id number] [place] [address] May, [facility] [place] [facility] [address] [id number] [place] [address] May, [facility] [place] [facility] [address] [id number] [place] [address] May, [facility] [place] [facility] [address] [id number] [place] [address] Apr, [facility] [place] [facility] [address] [id number] [place] [address] Apr, [facility] [place] [facility] [address] [id number] [place] [address] Feb, [facility] [place] [facility] [address] [id number] [place] [address] January, [facility] [place] [facility] [address] [id number] [place] [address] January, [facility] [place] [facility] [address] [id number] [place] [address] January, [facility] [place] [facility] [address] [id number] [place] [address] January, [facility] [place] [facility] [address] [id number] [place] [address] January, [facility] [place] [facility] [address] [id number] [place] [address] January, [facility] [place] [facility] [address] [id number] [place] [address] Dec, [facility] [place] [facility] [address] [id number] [place] [address] Dec, [facility] [place] [facility] [address] [id number] [place] [address] Dec, [facility] [place] [facility] [address] [id number] [place] [address] Dec, [facility] [place] [facility] [address] [id number] [place] [address] Dec, [facility] [place] [facility] [address] [id number] [place] [address] Dec, [facility] [place] [facility] [address] [id number] [place] [address] Dec, [facility] [place] [facility] [address] [id number] [place] [address] Dec, [facility] [place] [facility] [address] [id number] [place] [address] Nov, [facility] [place] [facility] [address] [id number] [place] [address] Nov, [facility] [place] [facility] [address] [id number] [place] [address] Nov, [facility] [place] [facility] [address] [id number] [place] [address] Nov, [facility] [place] [facility] [address] [id number] [place] [address] 17 Nov, 2013 [facility] [place] [facility] [address] [id number] [place] [address] Nov, [facility] [place] [facility] [address] [id number] [place] [address] Nov, [facility] [place] [facility] [address] [id number] [place] [address] Oct, [facility] [place] [facility] [address] [id number] [place] [address] Oct, [facility] [place] [facility] [address] [id number] [place] [address] Oct, [facility] [place] [facility] [address] [id number] [place] [address] Oct, [facility] [place] [facility] [address] [id number] [place] [address] Sep, [facility] [place] [facility] [address] [id number] [place] [address] Sep, [facility] [place] [facility] [address] [id number] [place] [address] Sep, [facility] [place] [facility] [address] [id number] [place] [address] Sep, [facility] [place] [facility] [address] [id number] [place] [address] Aug, [facility] [place] [facility] [address] [id number] [place] [address] Aug, [facility] [place] [facility] [address] [id number] [place] [address] Jul, [facility] [place] [facility] [address] [id number] [place] [address] Jul, [facility] [place] [facility] [address] [id number] [place] [address] Jun, [facility] [address] [id number] [place] [address] Jun, [facility] [place] [facility] [address] [id number] [place] [address] Jun, [facility] [place] [facility] [address] [id number] [place] [address] May, [facility] [place] [facility] [address] [id number] [place] [address] Apr, [facility] [place] [facility] [address] [id number] [place] [address] Apr, [facility] [place] [facility] [address] [id number] [place] [address] Mar, [facility] [place] [facility] [address] [id number] [place] [address] Feb, [facility] [place] [facility] [address] [id number] [place] [address] Feb, [facility] [place] [facility] [address] [id number] [place] [address] January, [facility] [place] [facility] [address] [id number] [place] [address] January, [facility] [place] [facility] [address] [id number], [place] [address] Dec, [facility] [place] [facility] [address] [id number], [place] [address] Dec, [facility] [place] [facility] [address] [id number] [place] [address] Dec, [facility] [place] [facility] [address] [id number] [place] [address] Dec, [facility] [place] [facility] [address] [id number] [place] [address] Nov, [facility] [place] [facility] [address] [id number] [place] [address] 14 Nov, 2012 [facility] [address] [id number] [place] [address] Oct, [facility] [address] [id number] [place] [address] Oct, [facility] [address] [id number] [place] [address] Oct, [facility] [address] [id number] [place] [address] Sep, [facility] [address] [id number] [place] [address] Sep, [facility] [address] [id number] [place] [address] Sep, [facility] [address] [id number] [place] [address] Sep, [facility] [address] [id number] [place] [address] Sep, [facility] [address] [id number] [place] [address] Aug, [facility] [address] [id number] [place] [address] Aug, [facility] [address] [id number] [place] [address] Aug, [facility] [address] [id number] [place] [address] Aug, [facility] [address] [id number] [place] [address] Jul, [facility] [address] [id number] [place] [address] Jul, [facility] [address] [id number] [place] [address] Jul, [facility] [place] [facility] [address] [id number] [place] [address] Jul, [facility] [place] [facility] [address] [id number] [place] [address] Jun, [facility] [place] [facility] [address] [id number] [place] [address] Jun, [facility] [place] [facility] [address] [id number] [place] [address] Jun, [facility] [place] [facility] [address] [id number] [place] [address] Jun, [facility] [place] [facility] [address] [id number] [place] [address] Jun, [facility] [place] [facility] [address] [id number] [place] [address] 24 May, 2012 [facility] [place] [facility] [address] [id number] [place] [address] 13 May, 2012 [facility] [place] [facility] [address] [id number] [place] [address] 12 May, 2012 [facility] [place] [facility] [address] [facility] [place] [id number], [place] [address] 11 May, 2012 [facility] [place] [facility] [address] [facility] [place] [id number], [place] [address] 10 May, 2012 [facility] [place] [facility] [address] [id number], [place] [address] 06 May, 2012 [facility] [place] [facility] [address] [id number] [place] [address] 05 May, 2012 [facility] [place] [facility] [address] [id number], [place] [address] 30 Apr, 2012 [facility] [place] [facility] [address] [id number], [place] [address] Apr, [facility] [place] [facility] [address] [id number], [place] [address] Apr, [facility] [place] [facility] [address] [id number] [place] [address] Apr, [facility] [place] [facility] [address] [id number] [place] [address] Apr, [facility] [place] [facility] [address] [id number] [place] [address] Apr, [facility] [place] [facility] [address] [id number] [place] [address] Apr, [facility] [place] [facility] [address] [id number] [place] [address] Apr, [facility] [place] [facility] [address] [id number] [place] [address] Mar, [facility] [place] [facility] [address] [id number] [place] [address] Mar, [facility] [place] [facility] [address] [id number] [place] [address] Mar, [facility] [place] [facility] [address] [id number] [place] [address] Feb, [facility] [place] [facility] [address] [id number] [place] [address] January, [facility] [place] [facility] [address] [id number] [place] [address] January, [facility] [place] [facility] [address] [id number] [place] [address] January, [facility] [place] [facility] [address] [id number] [place] [address] Dec, [facility] [place] [facility] [address] [id number] [place] [address] Dec, [facility] [place] [facility] [address] [id number] [place] [address] Dec, [facility] [place] [facility] [address] [facility] [place] [id number] [place] [address] Dec, [facility] [address] [facility] [place] [id number] [place] [address] Dec, [facility] [address] [facility] [place] [id number] [place] [address] Dec, IMMUNIZATIONS No Known Immunizations SOCIAL HISTORY Never Assessed REASON FOR VISIT Hydrocodone 04/03 PLAN OF CARE VITAL SIGNS MEDICATIONS Medication Instructions Dosage Frequency Start Date End Date Duration Status Hydrocodone-Acetaminophen 7.5-325 MG Orally, 5 times per day 2 tablet Mar, 30 days Active RESULTS No Results PROCEDURES [...] 04/02/2012 Surgical History appendectomy age 10 at [facility] Surgical History cholecystectomy-[facility] 2007 Surgical History coronary artery bypass graft LAD 02/2012 Surgical History heart cath x2 after bypass, pt has 5 stents Hospitalization History Chest pain, dizziness, renal insuff, heat cath showed CAD ([facility]) 01/03/2012 Hospitalization History CABG ([facility]) Dr. Banks 02/2012
--- OUTSIDE RECORDS SUMMARY | 2019-05-03 10:00 | XMS REPORT | Continuity of Care Document ---
Author Organization Unknown Address Unknown Phone Unavailable Allergies Active Description Code Type Severity Reaction Onset Reported/Identified Relationship to Patient Clinical Status Yes Celebrex 200 mg capsule Drug Allergy 06/07/2012 Yes Celebrex 200 mg capsule Drug Allergy N/A N/A 06/07/2012 Yes No Known Drug Allergies [id number] Drug Allergy Unknown N/A 05/02/2016 Medications There is no data. Problems Date Dx Coded Attending Type Code Diagnosis Diagnosed By 01/06/2012 Ot 300.00 ANXIETY STATE NOS 01/06/2012 Ot 305.1 TOBACCO USE DISORDER 01/06/2012 Ot 414.01 CORONARY ATHEROSCLEROSIS OF [place] CORON 01/06/2012 Ot 515 POSTINFLAM PULM FIBROSIS 01/06/2012 Ot 780.4 DIZZINESS AND GIDDINESS 01/06/2012 Ot 786.50 CHEST PAIN NOS 01/16/2012 ALFREDO PRAJAPATI, BELEM 780.4 VERTIGO 01/16/2012 ALFREDO PRAJAPATI, BELEM 780.4 VERTIGO 01/16/2012 780.4 VERTIGO 01/16/2012 GEORGINA ULRICH DDS 780.4 VERTIGO 01/16/2012 ALFREDO PRAJAPATI, BELEM 780.4 VERTIGO 01/16/2012 ALFREDO PRAJAPATI, BELEM 780.4 VERTIGO 01/16/2012 ALFREDO PRAJPAATI, BELEM 780.4 VERTIGO 01/16/2012 LAZARO KIMBLE DO 780.4 VERTIGO 01/16/2012 ALFREDO PRAJAPATI, BELEM 780.4 VERTIGO 01/16/2012 LAFREDO PRAJAPATI, BELEM 780.4 VERTIGO 01/16/2012 ALFREDO PRAJAPATI, BELEM 780.4 VERTIGO 01/16/2012 ALFREDO PRAJAPATI, BELEM 780.4 VERTIGO 01/16/2012 ALFREDO PRAJAPATI, BELEM 780.4 VERTIGO 01/16/2012 780.4 VERTIGO 03/23/2012 Ot 401.9 HYPERTENSION NOS 03/23/2012 Ot 414.01 CORONARY ATHEROSCLEROSIS OF [place] CORON 04/10/2012 BELEM FUENTES MD 300.00 ANXIETY STATE UNSPECIFIED 04/10/2012 BELEM FUENTES MD 414.00 CORONARY ATHEROSCLEROSIS OF UNSPECIFIED TYPE OF VESSEL [place] OR GRAFT 04/10/2012 BELEM FUENTES MD 300.00 ANXIETY STATE UNSPECIFIED 04/10/2012 BELEM FUENTES MD 414.00 CORONARY ATHEROSCLEROSIS OF UNSPECIFIED TYPE OF VESSEL [place] OR GRAFT 04/10/2012 300.00 ANXIETY STATE UNSPECIFIED 04/10/2012 414.00 CORONARY ATHEROSCLEROSIS OF UNSPECIFIED TYPE OF VESSEL [place] OR GRAFT 04/10/2012 WHITE DDSGEORGINA 300.00 ANXIETY STATE UNSPECIFIED 04/10/2012 WHITE DDS, GEORGINA Mireles 414.00 CORONARY ATHEROSCLEROSIS OF UNSPECIFIED TYPE OF VESSEL [place] OR GRAFT 04/10/2012 BELEM FUENTES MD 300.00 ANXIETY STATE UNSPECIFIED 04/10/2012 BELEM FUENTES MD 414.00 CORONARY ATHEROSCLEROSIS OF UNSPECIFIED TYPE OF VESSEL [place] OR GRAFT 04/10/2012 BELEM FUENTES MD 300.00 ANXIETY STATE UNSPECIFIED 04/10/2012 BELEM FUENTES MD 414.00 CORONARY ATHEROSCLEROSIS OF UNSPECIFIED TYPE OF VESSEL [place] OR GRAFT 04/10/2012 BELEM FUENTES MD 300.00 ANXIETY STATE UNSPECIFIED 04/10/2012 BELEM FUENTES MD 414.00 CORONARY ATHEROSCLEROSIS OF UNSPECIFIED TYPE OF VESSEL [place] OR GRAFT 04/10/2012 KIMBLE DO LAZARO K 300.00 ANXIETY STATE UNSPECIFIED 04/10/2012 KIMBLE DO LAZARO K 414.00 CORONARY ATHEROSCLEROSIS OF UNSPECIFIED TYPE OF VESSEL [place] OR GRAFT 04/10/2012 BELEM FUENTES MD 300.00 ANXIETY STATE UNSPECIFIED 04/10/2012 BELEM FUENTES MD 414.00 CORONARY ATHEROSCLEROSIS OF UNSPECIFIED TYPE OF VESSEL [place] OR GRAFT 04/10/2012 BELEM FUENTES MD 300.00 ANXIETY STATE UNSPECIFIED 04/10/2012 BELEM FUENTES MD 414.00 CORONARY ATHEROSCLEROSIS OF UNSPECIFIED TYPE OF VESSEL [place] OR GRAFT 04/10/2012 BELEM FUENTES MD 300.00 ANXIETY STATE UNSPECIFIED 04/10/2012 BELEM FUENTES MD 414.00 CORONARY ATHEROSCLEROSIS OF UNSPECIFIED TYPE OF VESSEL [place] OR GRAFT 04/10/2012 BELEM FUENTES MD 300.00 ANXIETY STATE UNSPECIFIED 04/10/2012 BELEM FUENTES MD 414.00 CORONARY ATHEROSCLEROSIS OF UNSPECIFIED TYPE OF VESSEL [place] OR GRAFT 04/10/2012 BELEM FUENTES MD 300.00 ANXIETY STATE UNSPECIFIED 04/10/2012 BELEM FUENTES MD 414.00 CORONARY ATHEROSCLEROSIS OF UNSPECIFIED TYPE OF VESSEL [place] OR GRAFT 04/10/2012 300.00 ANXIETY STATE UNSPECIFIED 04/10/2012 414.00 CORONARY ATHEROSCLEROSIS OF UNSPECIFIED TYPE OF VESSEL [place] OR GRAFT 05/18/2012 BELEM FUENTES MD6 CHRONIC AIRWAY OBSTRUCTION NOT ELSEWHERE CLASSIFIED 05/18/2012 BLEEM FUENTES MD CHRONIC AIRWAY OBSTRUCTION NOT ELSEWHERE CLASSIFIED 05/18/2012 496 CHRONIC AIRWAY OBSTRUCTION NOT ELSEWHERE CLASSIFIED 05/18/2012 GEORGINA ULRICH DDS 496 CHRONIC AIRWAY OBSTRUCTION NOT ELSEWHERE CLASSIFIED 05/18/2012 BELEM FUENTES MD 496 CHRONIC AIRWAY OBSTRUCTION NOT ELSEWHERE CLASSIFIED 05/18/2012 BELEM FUENTES MD6 CHRONIC AIRWAY OBSTRUCTION NOT ELSEWHERE CLASSIFIED 05/18/2012 BELEM FUENTES MD CHRONIC AIRWAY OBSTRUCTION NOT ELSEWHERE CLASSIFIED 05/18/2012 LAZARO KIMBLE DO 496 CHRONIC AIRWAY OBSTRUCTION NOT ELSEWHERE CLASSIFIED 05/18/2012 BELEM FUENTES MD 496 CHRONIC AIRWAY OBSTRUCTION NOT ELSEWHERE CLASSIFIED 05/18/2012 BELEM FUENTES MD 496 CHRONIC AIRWAY OBSTRUCTION NOT ELSEWHERE CLASSIFIED 05/18/2012 BELEM FUENTES MD6 CHRONIC AIRWAY OBSTRUCTION NOT ELSEWHERE CLASSIFIED 05/18/2012 BELEM FUENTES MD6 CHRONIC AIRWAY OBSTRUCTION NOT ELSEWHERE CLASSIFIED 05/18/2012 BELEM FUENTES MD 496 CHRONIC AIRWAY OBSTRUCTION NOT ELSEWHERE CLASSIFIED 05/18/2012 496 CHRONIC AIRWAY OBSTRUCTION NOT ELSEWHERE CLASSIFIED 05/22/2012 BELEM FUENTES MD 786.52 CHEST WALL PAIN 05/22/2012 BELEM FUENTES MD 786.52 CHEST WALL PAIN 05/22/2012 786.52 CHEST WALL PAIN 05/22/2012 GEORGINA ULRICH DDS 786.52 CHEST WALL PAIN 05/22/2012 BELEM FUENTES MD 786.52 CHEST WALL PAIN 05/22/2012 BELEM FUENTES MD 786.52 CHEST WALL PAIN 05/22/2012 BELEM FUENTES MD 786.52 CHEST WALL PAIN 05/22/2012 LAZARO KIMBLE DO 786.52 CHEST WALL PAIN 05/22/2012 BELEM FUENTES MD 786.52 CHEST WALL PAIN 05/22/2012 BELEM FUENTES MD 786.52 CHEST WALL PAIN 05/22/2012 BELEM FUENTES MD 786.52 CHEST WALL PAIN 05/22/2012 BELEM FUENTES MD 786.52 CHEST WALL PAIN 05/22/2012 ALFREDO PRAJAPATI, BELEM 786.52 CHEST WALL PAIN 05/22/2012 786.52 CHEST WALL PAIN 06/29/2012 BELEM FUENTES MD V04.81 FLU DX (3 YRS AND ABOVE, IM) 06/29/2012 BELEM FUENTES MD V04.81 FLU DX (3 YRS AND ABOVE, IM) 06/29/2012 V04.81 FLU DX (3 YRS AND ABOVE, IM) 06/29/2012 MOJGAN CRUZSGEORGINA V04.81 FLU DX (3 YRS AND ABOVE, IM) 06/29/2012 BELEM FUENTES MD V04.81 FLU DX (3 YRS AND ABOVE, IM) 06/29/2012 BELEM FUENTES MD V04.81 FLU DX (3 YRS AND ABOVE, IM) 06/29/2012 BELEM FUENTES MD V04.81 FLU DX (3 YRS AND ABOVE, IM) 06/29/2012 LAMIN DOLAZARO V04.81 FLU DX (3 YRS AND ABOVE, IM) 06/29/2012 BELEM FUENTES MD V04.81 FLU DX (3 YRS AND ABOVE, IM) 06/29/2012 BELEM FUENTES MD V04.81 FLU DX (3 YRS AND ABOVE, IM) 06/29/2012 BELEM FUENTES MD V04.81 FLU DX (3 YRS AND ABOVE, IM) 06/29/2012 BELEM FUENTES MD V04.81 FLU DX (3 YRS AND ABOVE, IM) 06/29/2012 BELEM FUENTES MD V04.81 FLU DX (3 YRS AND ABOVE, IM) 06/29/2012 V04.81 FLU DX (3 YRS AND ABOVE, IM) 07/22/2013 BELEM FUENTES MD V03.82 PPV23 (PNEUMOVAX) DX 07/22/2013 BELEM FUENTES MD V03.82 PPV23 (PNEUMOVAX) DX 07/22/2013 BELEM FUENTES MD V03.82 PPV23 (PNEUMOVAX) DX 07/22/2013 LAZARO KIMBLE DO V03.82 PPV23 (PNEUMOVAX) DX 07/22/2013 BELEM FUENTES MD V03.82 PPV23 (PNEUMOVAX) DX 07/22/2013 BELEM FUENTES MD V03.82 PPV23 (PNEUMOVAX) DX 07/22/2013 ALFREDO PRAJAPATI, BELEM V03.82 PPV23 (PNEUMOVAX) DX 07/22/2013 BELEM FUENTES MD V03.82 PPV23 (PNEUMOVAX) DX 07/22/2013 BELEM FUENTES MD V03.82 PPV23 (PNEUMOVAX) DX 11/01/2013 BELEM FUENTES MD 784.42 DYSPHONIA 11/01/2013 KIMBLE DOLAZARO 784.42 DYSPHONIA 11/01/2013 BELEM FUENTES MD 784.42 DYSPHONIA 11/01/2013 BELEM FUENTES MD 784.42 DYSPHONIA 11/01/2013 BELEM FUENTES MD 784.42 DYSPHONIA 11/01/2013 ALFREDO PRAJAPATI, BELEM 784.42 DYSPHONIA 11/01/2013 BELEM FUENTES MD 784.42 DYSPHONIA 12/09/2013 KIMBLE DO, LAZARO Lopez 682.0 CELLULITIS AND ABSCESS OF FACE 12/09/2013 BELEM FUENTES MD 682.0 CELLULITIS AND ABSCESS OF FACE 12/09/2013 BELEM FUENTES MD 682.0 CELLULITIS AND ABSCESS OF FACE 12/09/2013 BELEM FUENTES MD 682.0 CELLULITIS AND ABSCESS OF FACE 12/09/2013 BELEM FUENTES MD 682.0 CELLULITIS AND ABSCESS OF FACE 12/09/2013 BELEM FUENTES MD 682.0 CELLULITIS AND ABSCESS OF FACE 12/11/2013 BELEM FUENTES MD Ot 035 ERYSIPELAS 12/11/2013 BELEM FUENTES MD Ot 272.4 HYPERLIPIDEMIA NEC/NOS 12/11/2013 BELEM FUENTES MD Ot 401.9 HYPERTENSION NOS 12/11/2013 BELEM FUENTES MD Ot 414.00 CORON ATHEROSCLER NOS TYPE VESSEL, [place]IV 12/11/2013 BELEM FUENTES MD Ot 427.31 ATRIAL FIBRILLATION 12/11/2013 BELEM FUENTES MD Ot 515 POSTINFLAM PULM FIBROSIS 12/11/2013 BELEM FUENTES MD Ot 682.0 CELLULITIS OF FACE 12/11/2013 BELEM FUENTES MD Ot 780.4 DIZZINESS AND GIDDINESS 12/11/2013 BELEM FUENTES MD Ot 786.50 CHEST PAIN NOS 12/11/2013 BELEM FUENTES MD Ot V45.81 AORTOCORONARY BYPASS 12/11/2013 BELEM FUENTES MD Ot V45.82 PERCUTANEOUS TRANSLUM CORON ANGIOPLASTY 03/20/2014 MONICA HAUSER MD Ot 272.4 HYPERLIPIDEMIA NEC/NOS 03/20/2014 MONICA HAUSER MD Ot 401.9 HYPERTENSION NOS 03/20/2014 MONICA HAUSER MD Ot 414.01 CORONARY ATHEROSCLEROSIS OF [place] CORON 03/20/2014 MONICA HAUSER MD Ot 414.02 CORON ATHEROSCLEROSIS AUTOLOG VEIN BYPAS 03/20/2014 MONICA HAUSER MD Ot 414.2 CHRONIC TOTAL OCCLUSION OF CORONARY [place] 03/20/2014 MONICA HAUSER MD Ot 786.50 CHEST PAIN NOS 03/20/2014 MONICA HAUSER MD Ot V15.82 HISTORY OF TOBACCO USE 03/20/2014 MONICA HAUSER MD Ot V45.81 AORTOCORONARY BYPASS 03/20/2014 MONICA HAUSER MD Ot V45.82 PERCUTANEOUS TRANSLUM CORON ANGIOPLASTY 03/20/2014 MONICA HAUSER MD Ot V58.69 OT MED,LT,CURRENT USE 05/20/2015 Ot 496 05/20/2015 PRASHANTH SAWYER Ot 272.4 05/20/2015 PRASHANTH SAWYER Ot 278.00 05/20/2015 PRASHANTH SAWYER Ot 300.00 05/20/2015 PRASHANTH SAWYER Ot 401.9 05/20/2015 PRASHANTH SAWYER Ot 414.00 05/20/2015 PRASHANTH SAWYER Ot 785.9 05/20/2015 PRASHANTH SAWYER Ot 786.05 05/20/2015 PRASHANTH SAWYER Ot 272.4 05/20/2015 PRASHANTH SAWYER Ot 278.00 05/20/2015 PRASHANTH SAWYER Ot 300.00 05/20/2015 PRASHANTH SAWYER Ot 401.9 05/20/2015 PRASHANTH SAWYER Ot 414.00 05/20/2015 SHANE PA, PRASHANTH K Ot 786.05 05/29/2015 Ot 496 05/29/2015 SHANE PA, PRASHANTH K Ot 272.4 05/29/2015 SHANE PA, PRASHANTH K Ot 278.00 05/29/2015 SHANE PA, PRASHANTH K Ot 300.00 05/29/2015 SHANE PA, PRASHANTH K Ot 401.9 05/29/2015 SHANE PA, PRASHANTH K Ot 414.00 05/29/2015 SHANE PA, PRASHANTH K Ot 785.9 05/29/2015 SHANE PA, PRASHANTH K Ot 786.05 05/29/2015 SHANE PA, PRASHANTH K Ot 272.4 05/29/2015 SHANE PA, PRASHANTH K Ot 278.00 05/29/2015 SHANE PA, PRASHANTH K Ot 300.00 05/29/2015 SHANE PA, PRASHANTH K Ot 401.9 05/29/2015 SHANE PA, PRASHANTH K Ot 414.00 05/29/2015 SHANE PA, PRASHANTH K Ot 786.05 05/29/2015 MARY DÍAZ VALIDATION ARCHITECT Ot 684 IMPETIGO 05/29/2015 MARY DÍAZ VALIDATION ARCHITECT Ot 709.9 SKIN DISORDER NOS 07/24/2015 MONICA HAUSER MD, Ot E78.5 HYPERLIPIDEMIA, UNSPECIFIED 07/24/2015 MONICA HAUSER MD Ot I10 ESSENTIAL (PRIMARY) HYPERTENSION 07/24/2015 MONICA HAUSER MD, Ot I25.10 ATHSCL HEART DISEASE OF [place] CORONARY 07/24/2015 MONICA HAUSER MD, Ot I25.82 CHRONIC TOTAL OCCLUSION OF CORONARY [place] 07/24/2015 MONICA HAUSER MD, Ot I48.0 PAROXYSMAL ATRIAL FIBRILLATION 07/24/2015 MONICA HAUSER MD, Ot R07.9 CHEST PAIN, UNSPECIFIED 07/24/2015 MONICA HAUSER MD, Ot R53.83 OTHER FATIGUE 07/24/2015 MONICA HAUSER MD, Ot Z79.899 OTHER FURNITURE INSTALLER (CURRENT) DRUG THERAPY 07/24/2015 MONICA HAUSER MD, Ot Z87.891 PERSONAL HISTORY OF NICOTINE DEPENDENCE 07/24/2015 MONICA HAUSER MD Ot Z95.1 PRESENCE OF AORTOCORONARY BYPASS GRAFT 07/24/2015 MONICA HAUSER MD Ot Z98.61 CORONARY ANGIOPLASTY STATUS 08/17/2015 PRASHANTH SAWYER Ot E78.5 08/17/2015 PRASHANTH SAWYER Ot I10 08/17/2015 PRASHANTH SAWYER Ot I25.10 08/17/2015 PRASHANTH SAWYER Ot I65.29 04/27/2016 Ot 496 CHR AIRWAY OBSTRUCT NEC 04/27/2016 PRASHANTH SAWYER Ot 272.4 HYPERLIPIDEMIA NEC/NOS 04/27/2016 PRASHANTH SAWYER Ot 278.00 OBESITY, NOS 04/27/2016 PRASHANTH SAWYER Ot 300.00 ANXIETY STATE NOS 04/27/2016 PRASHANTH SAWYER Ot 401.9 HYPERTENSION NOS 04/27/2016 PRASHANTH SAWYER Ot 414.00 CORON ATHEROSCLER NOS TYPE VESSEL, [place] 04/27/2016 PRASHANTH SAWYER Ot 785.9 CARDIOVAS SYS SYMP NEC 04/27/2016 PRASHANTH SAWYER Ot 786.05 SHORTNESS OF BREATH 04/27/2016 PRASHANTH SAWYER Ot 272.4 HYPERLIPIDEMIA NEC/NOS 04/27/2016 PRASHANTH SAWYER Ot 278.00 OBESITY, NOS 04/27/2016 PRASHANTH SAWYER Ot 300.00 ANXIETY STATE NOS 04/27/2016 PRASHANTH SAWYER Ot 401.9 HYPERTENSION NOS 04/27/2016 PRASHANTH SAWYER Ot 414.00 CORON ATHEROSCLER NOS TYPE VESSEL, NATIV 04/27/2016 PRASHANTH SAWYER Ot 786.05 SHORTNESS OF BREATH 04/27/2016 PRASHANTH SAWYER Ot E78.5 HYPERLIPIDEMIA, UNSPECIFIED 04/27/2016 PRASHANTH SAWYER Ot I10 ESSENTIAL (PRIMARY) HYPERTENSION 04/27/2016 PRASHANTH SAWYER Ot I25.10 ATHSCL HEART DISEASE OF [place] CORONARY 04/27/2016 PRASHANTH SAWYER Ot I65.29 OCCLUSION AND STENOSIS OF UNSPECIFIED CA 04/27/2016 MALINDA GRAHAM DO D Ot D50.9 IRON DEFICIENCY ANEMIA, UNSPECIFIED 04/27/2016 GRAHAM DO MALINDA D Ot Z01.818 ENCOUNTER FOR OTHER PREPROCEDURAL EXAMIN 04/28/2016 GRAHAM DOJAMESTT D Ot D50.9 IRON DEFICIENCY ANEMIA, UNSPECIFIED 04/28/2016 GRAHAM DO, MALINDA D Ot Z01.818 ENCOUNTER FOR OTHER PREPROCEDURAL EXAMIN 04/28/2016 GRAHAM DOMALINDA D Ot D50.9 IRON DEFICIENCY ANEMIA, UNSPECIFIED 04/28/2016 GRAHAM DO, MALINDA D Ot Z01.818 ENCOUNTER FOR OTHER PREPROCEDURAL EXAMIN 05/02/2016 GRAHAM DOJAMESTT D Ot D50.9 IRON DEFICIENCY ANEMIA, UNSPECIFIED 05/02/2016 GRAHAM DO, MALINDA D Ot Z01.818 ENCOUNTER FOR OTHER PREPROCEDURAL EXAMIN 05/02/2016 GRAHAM DO, MALINDA D Ot D50.9 IRON DEFICIENCY ANEMIA, UNSPECIFIED 05/02/2016 GRAHAM DO, MALINDA D Ot Z01.818 ENCOUNTER FOR OTHER PREPROCEDURAL EXAMIN 05/03/2016 Ot 496 CHR AIRWAY OBSTRUCT NEC 05/03/2016 PRASHANTH SAWYER Ot 272.4 HYPERLIPIDEMIA NEC/NOS 05/03/2016 PRASHANTH SAWYER Ot 278.00 OBESITY, NOS 05/03/2016 PRASHANTH SAWYER Ot 300.00 ANXIETY STATE NOS 05/03/2016 PRASHANTH SAWYER Ot 401.9 HYPERTENSION NOS 05/03/2016 PRASHANTH SAWYER Ot 414.00 CORON ATHEROSCLER NOS TYPE VESSEL, NATIV 05/03/2016 PRASHANTH SAWYER Ot 785.9 CARDIOVAS SYS SYMP NEC 05/03/2016 PRASHANTH SAWYER Ot 786.05 SHORTNESS OF BREATH 05/03/2016 PRASHANTH SAWYER Ot 272.4 HYPERLIPIDEMIA NEC/NOS 05/03/2016 SHANE VALDEZ, PRASHANTH Lopez Ot 278.00 OBESITY, NOS 05/03/2016 SHANE VALDEZ, PRASHANTH Lopez Ot 300.00 ANXIETY STATE NOS 05/03/2016 PRASHANTH SAWYER Ot 401.9 HYPERTENSION NOS 05/03/2016 SHANE VALDEZ, PRASHANTH Lopez Ot 414.00 CORON ATHEROSCLER NOS TYPE VESSEL, NATIV 05/03/2016 PRASHANTH SAWYER Ot 786.05 SHORTNESS OF BREATH 05/03/2016 PRASHANTH SAWYER Ot E78.5 HYPERLIPIDEMIA, UNSPECIFIED 05/03/2016 PRASHANTH SAWYER Ot I10 ESSENTIAL (PRIMARY) HYPERTENSION 05/03/2016 PRASHANTH SAWYER Ot I25.10 ATHSCL HEART DISEASE OF [place] CORONARY 05/03/2016 PRASHANTH SAWYER Ot I65.29 OCCLUSION AND STENOSIS OF UNSPECIFIED CA 05/03/2016 GRAHAM DO MALINDA D Ot D50.9 IRON DEFICIENCY ANEMIA, UNSPECIFIED 05/03/2016 GRAHAM DO, MALINDA D Ot Z01.818 ENCOUNTER FOR OTHER PREPROCEDURAL EXAMIN 05/03/2016 GRAHAM DO, MALINDA D Ot D50.9 IRON DEFICIENCY ANEMIA, UNSPECIFIED 05/03/2016 GRAHAM DO, MALINDA D Ot K29.70 GASTRITIS, UNSPECIFIED, WITHOUT BLEEDING 05/04/2016 GRAHAM DO, MALINDA D Ot D50.9 IRON DEFICIENCY ANEMIA, UNSPECIFIED 05/04/2016 GRAHAM DO, MALINDA D Ot K29.70 GASTRITIS, UNSPECIFIED, WITHOUT BLEEDING 05/04/2016 GRAHAM DO, MALINDA D Ot D50.9 IRON DEFICIENCY ANEMIA, UNSPECIFIED 05/04/2016 GRAHAM DO, MALINDA D Ot K29.70 GASTRITIS, UNSPECIFIED, WITHOUT BLEEDING 06/03/2016 GRAHAM DO, MALINDA D Ot D50.9 IRON DEFICIENCY ANEMIA, UNSPECIFIED 06/03/2016 GRAHAM DO, MALINDA D Ot Z01.818 ENCOUNTER FOR OTHER PREPROCEDURAL EXAMIN 06/06/2016 GRAHAM DO, MALINDA D Ot D50.9 IRON DEFICIENCY ANEMIA, UNSPECIFIED 06/06/2016 GRAHAM DO MALINDA D Ot Z01.818 ENCOUNTER FOR OTHER PREPROCEDURAL EXAMIN 06/07/2016 MALINDA GRAHAM DO Ot D12.4 BENIGN NEOPLASM OF DESCENDING COLON 06/07/2016 MALINDA GRAHAM DO Ot D50.9 IRON DEFICIENCY ANEMIA, UNSPECIFIED 06/13/2016 MALINDA GRAHAM DO Ot D12.4 BENIGN NEOPLASM OF DESCENDING COLON 06/13/2016 MALINDA GRAHAM DO Ot D50.9 IRON DEFICIENCY ANEMIA, UNSPECIFIED 06/28/2017 Ot 496 CHR AIRWAY OBSTRUCT NEC 06/28/2017 PRASHANTH SAWYER Ot 272.4 HYPERLIPIDEMIA NEC/NOS 06/28/2017 PRASHANTH SAWYER Ot 278.00 OBESITY, NOS 06/28/2017 PRASHANTH SAWYER Ot 300.00 ANXIETY STATE NOS 06/28/2017 PRASHANTH SAWYER Ot 401.9 HYPERTENSION NOS 06/28/2017 PRASHANTH SAWYER Ot 414.00 CORON ATHEROSCLER NOS TYPE VESSEL, NATIV 06/28/2017 PRASHANTH SAWYER Ot 785.9 CARDIOVAS SYS SYMP NEC 06/28/2017 PRASHANTH SAWYER Ot 786.05 SHORTNESS OF BREATH 06/28/2017 PRASHANTH SAWYER Ot 272.4 HYPERLIPIDEMIA NEC/NOS 06/28/2017 PRASHANTH SAWYER Ot 278.00 OBESITY, NOS 06/28/2017 PRASHANTH SAWYER Ot 300.00 ANXIETY STATE NOS 06/28/2017 PRASHANTH SAWYER Ot 401.9 HYPERTENSION NOS 06/28/2017 PRASHANTH SAWYER Ot 414.00 CORON ATHEROSCLER NOS TYPE VESSEL, NATIV 06/28/2017 PRASHANTH SAWYER Ot 786.05 SHORTNESS OF BREATH 06/28/2017 PRASHANTH SAWYER Ot E78.5 HYPERLIPIDEMIA, UNSPECIFIED 06/28/2017 PRASHANTH SAWYER Ot I10 ESSENTIAL (PRIMARY) HYPERTENSION 06/28/2017 PRASHANTH SAWYER Ot I25.10 ATHSCL HEART DISEASE OF [place] CORONARY 06/28/2017 PRASHANTH SAWYER Ot I65.29 OCCLUSION AND STENOSIS OF UNSPECIFIED CA 06/28/2017 MALINDA GRAHAM DO Ot D50.9 IRON DEFICIENCY ANEMIA, UNSPECIFIED 06/28/2017 MALINDA GRAHAM DO Ot Z01.818 ENCOUNTER FOR OTHER PREPROCEDURAL EXAMIN 07/09/2017 PRASHANTH SAWYER Ot E78.2 MIXED HYPERLIPIDEMIA 07/09/2017 PRASHANTH SAWYER Ot F41.9 ANXIETY DISORDER, UNSPECIFIED 07/09/2017 PRASHANTH SAWYER Ot I10 ESSENTIAL (PRIMARY) HYPERTENSION 07/09/2017 PRASHANTH SAWYER Ot I25.10 ATHSCL HEART DISEASE OF [place] CORONARY 07/17/2017 PRASHANTH SAWYER Ot E78.2 MIXED HYPERLIPIDEMIA 07/17/2017 PRASHANTH SAWYER Ot F41.9 ANXIETY DISORDER, UNSPECIFIED 07/17/2017 PRASHANTH SAWYER Ot I10 ESSENTIAL (PRIMARY) HYPERTENSION 07/17/2017 PRASHANTH SAWYER Ot I25.10 ATHSCL HEART DISEASE OF [place] CORONARY 07/25/2017 PRASHANTH SAWYER Ot E78.2 MIXED HYPERLIPIDEMIA 07/25/2017 PRASHANTH SAWYER Ot F41.9 ANXIETY DISORDER, UNSPECIFIED 07/25/2017 PRASHANTH SAWYER Ot I10 ESSENTIAL (PRIMARY) HYPERTENSION 07/25/2017 PRASHANTH SAWYER Ot I25.10 ATHSCL HEART DISEASE OF [place] CORONARY 08/09/2017 PRASHANTH SAWYER Ot E78.2 MIXED HYPERLIPIDEMIA 08/09/2017 PRASHANTH SAWYER Ot F41.9 ANXIETY DISORDER, UNSPECIFIED 08/09/2017 PRASHANTH SAWYER Ot I10 ESSENTIAL (PRIMARY) HYPERTENSION 08/09/2017 PRASHANTH SAWYER Ot I25.10 ATHSCL HEART DISEASE OF [place] CORONARY 06/12/2018 ALFREDO PRAJAPATI, BELEM Weldon Ot Z87.891 PERSONAL HISTORY OF NICOTINE DEPENDENCE 06/29/2018 PRASHANTH SAWYER Ot 272.4 HYPERLIPIDEMIA NEC/NOS 06/29/2018 SHANE VALDEZ, PRASHANTH Lopez Ot 278.00 OBESITY, NOS 06/29/2018 PRASHANTH SAWYER Ot 300.00 ANXIETY STATE NOS 06/29/2018 SHANE VALDEZ, PRASHANTH Lopez Ot 401.9 HYPERTENSION NOS 06/29/2018 SHANE VALDEZ, PRASHANTH Lopez Ot 414.00 CORON ATHEROSCLER NOS TYPE VESSEL, NATIV 06/29/2018 PRASHANTH SAWYER Ot 785.9 CARDIOVAS SYS SYMP NEC 06/29/2018 PRASHANTH SAWYER Ot 786.05 SHORTNESS OF BREATH 06/29/2018 PRASHANTH SAWYER Ot 272.4 HYPERLIPIDEMIA NEC/NOS 06/29/2018 PRASHANTH SAWYER Ot 278.00 OBESITY, NOS 06/29/2018 PRASHANTH SAWYER Ot 300.00 ANXIETY STATE NOS 06/29/2018 PRASHANTH SAWYER Ot 401.9 HYPERTENSION NOS 06/29/2018 PRASHANTH SAWYER Ot 414.00 CORON ATHEROSCLER NOS TYPE VESSEL, NATIV 06/29/2018 PRASHANTH SAWYER Ot 786.05 SHORTNESS OF BREATH 06/29/2018 PRASHANTH SAWYER Ot E78.5 HYPERLIPIDEMIA, UNSPECIFIED 06/29/2018 PRASHANTH SAWYER Ot I10 ESSENTIAL (PRIMARY) HYPERTENSION 06/29/2018 PRASHANTH SAWYER Ot I25.10 ATHSCL HEART DISEASE OF [place] CORONARY 06/29/2018 PRASHANTH SAWYER Ot I65.29 OCCLUSION AND STENOSIS OF UNSPECIFIED CA 06/29/2018 MALINDA GRAHAM DO Ot D50.9 IRON DEFICIENCY ANEMIA, UNSPECIFIED 06/29/2018 MALINDA GRAHAM DO Ot Z01.818 ENCOUNTER FOR OTHER PREPROCEDURAL EXAMIN 06/29/2018 PRASHANTH SAWYER Ot E78.2 MIXED HYPERLIPIDEMIA 06/29/2018 PRASHANTH SAWYER Ot F41.9 ANXIETY DISORDER, UNSPECIFIED 06/29/2018 [place] PA, PRASHANTH K Ot I10 ESSENTIAL (PRIMARY) HYPERTENSION 06/29/2018 [place] PA, PRASHANTH K Ot I25.10 ATHSCL HEART DISEASE OF [place] CORONARY 06/29/2018 [facility] K Ot E78.2 MIXED HYPERLIPIDEMIA 06/29/2018 [facility] K Ot F41.9 ANXIETY DISORDER, UNSPECIFIED 06/29/2018 [facility] K Ot I10 ESSENTIAL (PRIMARY) HYPERTENSION 06/29/2018 [facility], PRASHANTH K Ot I25.10 ATHSCL HEART DISEASE OF [place] CORONARY 06/29/2018 [facility] K Ot E78.2 MIXED HYPERLIPIDEMIA 06/29/2018 [facility] K Ot F41.9 ANXIETY DISORDER, UNSPECIFIED 06/29/2018 [facility] K Ot I10 ESSENTIAL (PRIMARY) HYPERTENSION 06/29/2018 [facility] K Ot I25.10 ATHSCL HEART DISEASE OF [place] CORONARY 06/29/2018 BELEM FUENTES MD Ot Z87.891 PERSONAL HISTORY OF NICOTINE DEPENDENCE 06/29/2018 BELEM FUENTES MD, Ot Z87.891 PERSONAL HISTORY OF NICOTINE DEPENDENCE 07/02/2018 BELEM FUENTES MD Ot F17.210 NICOTINE DEPENDENCE, CIGARETTES, UNCOMPL 07/02/2018 BELEM FUENTES MD Ot I77.89 OTHER SPECIFIED DISORDERS OF ARTERIES AN 07/02/2018 BELEM FUENTES MD Ot J43.9 EMPHYSEMA, UNSPECIFIED 07/02/2018 BELEM FUENTES MD Ot R91.1 SOLITARY PULMONARY NODULE 07/02/2018 BELEM FUENTES MD Ot Z12.2 ENCNTR SCREEN FOR MALIGNANT NEOPLASM OF 07/02/2018 BELEM FUENTES MD Ot Z95.1 PRESENCE OF AORTOCORONARY BYPASS GRAFT 07/05/2018 BELEM FUENTES MD Ot F17.210 NICOTINE DEPENDENCE, CIGARETTES, UNCOMPL 07/05/2018 BELEM FUENTES MD Ot I77.89 OTHER SPECIFIED DISORDERS OF ARTERIES AN 07/05/2018 BELEM FUENTES MD Ot J43.9 EMPHYSEMA, UNSPECIFIED 07/05/2018 BELEM FUENTES MD Ot R91.1 SOLITARY PULMONARY NODULE 07/05/2018 BELEM FUENTES MD Ot Z12.2 ENCNTR SCREEN FOR MALIGNANT NEOPLASM OF 07/05/2018 BELEM FUENTES MD Ot Z95.1 PRESENCE OF AORTOCORONARY BYPASS GRAFT 07/24/2018 BELEM FUENTES MD Ot F17.210 NICOTINE DEPENDENCE, CIGARETTES, UNCOMPL 07/24/2018 BELEM FUENTES MD Ot I77.89 OTHER SPECIFIED DISORDERS OF ARTERIES AN 07/24/2018 BELEM FUENTES MD Ot J43.9 EMPHYSEMA, UNSPECIFIED 07/24/2018 BELEM FUENTES MD Ot R91.1 SOLITARY PULMONARY NODULE 07/24/2018 BELEM FUENTES MD Ot Z12.2 ENCNTR SCREEN FOR MALIGNANT NEOPLASM OF 07/24/2018 BELEM FUENTES MD Ot Z95.1 PRESENCE OF AORTOCORONARY BYPASS GRAFT 11/19/2018 PRASHANTH SAWYER Ot E78.5 HYPERLIPIDEMIA, UNSPECIFIED 11/19/2018 PRASHANTH SAWYER Ot I10 ESSENTIAL (PRIMARY) HYPERTENSION 11/19/2018 PRASHANTH SAWYER Ot I25.10 ATHSCL HEART DISEASE OF [place] CORONARY 12/10/2018 PRASHANTH SAWYER Ot E78.5 HYPERLIPIDEMIA, UNSPECIFIED 12/10/2018 PRASHANTH SAWYER Ot I10 ESSENTIAL (PRIMARY) HYPERTENSION 12/10/2018 PRASHANTH SAWYER Ot I25.10 ATHSCL HEART DISEASE OF [place] CORONARY Procedures Code Description Performed By Performed On 37.22 LEFT HEART CARDIAC CATH 03/23/2012 88.56 CORONAR ARTERIOGR-2 CATH 03/23/2012 Cardiolog Tamir Blum 09/07/2012 68579 CMP 04/19/2013 98168 LIPID PANEL 04/19/2013 Cardiolog Monica Hauser 07/22/2013 02604 EKG, TRACING (IN-HOUSE) 09/03/2013 66613 ROUTINE VENIPUNCTURE 09/03/2013 41874 CBC 09/03/2013 02488 CMP 09/03/2013 39340 LIPID PANEL 09/03/2013 05648 MAGNESIUM 09/03/2013 [id number] GFR CALC (RESULT ONLY) 09/03/2013 81206 TSH 09/03/2013 Results Test Result Range CBC - 05/17/18 15:51 WHITE BLOOD CELL COUNT 6.6 Thousand/uL 3.8-10.8 RED BLOOD CELL COUNT 4.28 Million/uL 4.20-5.80 HEMOGLOBIN 13.8 g/dL 13.2-17.1 HEMATOCRIT 39.4 % 38.5-50.0 MCV 92.1 fL 80.0-100.0 MCH 32.2 pg 27.0-33.0 MCHC 35.0 g/dL 32.0-36.0 RDW 12.9 % 11.0-15.0 PLATELET COUNT 192 Thousand/uL 140-400 MPV 9.2 fL 7.5-12.5 ABSOLUTE NEUTROPHILS 3300 cells/uL 2247-6901 ABSOLUTE LYMPHOCYTES 2528 cells/uL 850-3900 ABSOLUTE MONOCYTES 541 cells/uL 200-950 ABSOLUTE EOSINOPHILS 172 cells/uL 15-500 ABSOLUTE BASOPHILS 59 cells/uL 0-200 NEUTROPHILS 50 % NRG LYMPHOCYTES 38.3 % NRG MONOCYTES 8.2 % NRG EOSINOPHILS 2.6 % NRG BASOPHILS 0.9 % NRG PDM - 09 PANEL (PROFILE 1) - 02/15/19 16:22 Prescribed Drug 1 Hydrocodone NRG Creatinine 34.7 mg/dL > or=20.0 pH 6.16 4.5 - 9.0 Oxidant NEGATIVE mcg/mL <200 Amphetamines NEGATIVE ng/mL <500 medMATCH Amphetamines CONSISTENT NRG Benzodiazepines POSITIVE ng/mL <100 Marijuana Metabolite NEGATIVE ng/mL <20 medMATCH Marijuana Metab CONSISTENT NRG Cocaine Metabolite NEGATIVE ng/mL <150 medMATCH Cocaine Metab CONSISTENT NRG Opiates POSITIVE ng/mL <100 Oxycodone NEGATIVE ng/mL <100 medMATCH Oxycodone CONSISTENT NRG COMMENT NRG Alphahydroxyalprazolam NEGATIVE ng/mL <25 medMATCH aOH alprazolam CONSISTENT NRG Alphahydroxymidazolam NEGATIVE ng/mL <50 medMATCH aOH midazolam CONSISTENT NRG Alphahydroxytriazolam NEGATIVE ng/mL <50 medMATCH aOH triazolam CONSISTENT NRG Aminoclonazepam NEGATIVE ng/mL <25 medMATCH Aminoclonazepam CONSISTENT NRG Hydroxyethylflurazepam NEGATIVE ng/mL <50 medMATCH OH,Et flurazepam CONSISTENT NRG Lorazepam NEGATIVE ng/mL <50 medMATCH Lorazepam CONSISTENT NRG Nordiazepam NEGATIVE ng/mL <50 medMATCH Nordiazepam CONSISTENT NRG Oxazepam 93 ng/mL <50 medMATCH Oxazepam CONSISTENT NRG Temazepam 3249 ng/mL <50 medMATCH Temazepam CONSISTENT NRG Codeine NEGATIVE ng/mL <50 medMATCH Codeine CONSISTENT NRG Hydrocodone 1059 ng/mL <50 medMATCH Hydrocodone CONSISTENT NRG Hydromorphone 863 ng/mL <50 medMATCH Hydromorphone CONSISTENT NRG Morphine NEGATIVE ng/mL <50 medMATCH Morphine CONSISTENT NRG Norhydrocodone 643 ng/mL <50 medMATCH Norhydrocodone CONSISTENT NRG Prescribed Drug 2 Lyrica(TM) NRG Prescribed Drug 3 Temazepam NRG Barbiturates NEGATIVE ng/mL <300 medMATCH Barbiturates CONSISTENT NRG Methadone Metabolite NEGATIVE ng/mL <100 medMATCH Methadone Metab CONSISTENT NRG Phencyclidine NEGATIVE ng/mL <25 medMATCH Phencyclidine CONSISTENT NRG MAGNESIUM SERUM - 04/25/19 15:55 MAGNESIUM 2.0 mg/dL 1.5-2.5 CBC - 04/25/19 15:55 WHITE BLOOD CELL COUNT 6.1 Thousand/uL 3.8-10.8 RED BLOOD CELL COUNT 4.30 Million/uL 4.20-5.80 HEMOGLOBIN 13.2 g/dL 13.2-17.1 HEMATOCRIT 39.5 % 38.5-50.0 MCV 91.9 fL 80.0-100.0 MCH 30.7 pg 27.0-33.0 MCHC 33.4 g/dL 32.0-36.0 RDW 12.8 % 11.0-15.0 PLATELET COUNT 194 Thousand/uL 140-400 MPV 9.4 fL 7.5-12.5 ABSOLUTE NEUTROPHILS 3459 cells/uL 1691-2638 ABSOLUTE LYMPHOCYTES 1867 cells/uL 850-3900 ABSOLUTE MONOCYTES 555 cells/uL 200-950 ABSOLUTE EOSINOPHILS 171 cells/uL 15-500 ABSOLUTE BASOPHILS 49 cells/uL 0-200 NEUTROPHILS 56.7 % NRG LYMPHOCYTES 30.6 % NRG MONOCYTES 9.1 % NRG EOSINOPHILS 2.8 % NRG BASOPHILS 0.8 % NRG Encounters ACCT No. Visit Date/Time Discharge Status Pt. Type Provider Facility Loc./Unit Complaint [id number] 04/25/2019 15:20:00 04/25/2019 23:59:59 CLS Outpatient BELEM FUENTES MD [facility] [id number] 04/25/2019 15:20:00 Document Registration [id number] 02/15/2019 15:40:00 Document Registration [id number] 05/17/2018 15:40:00 Document Registration [id number] 09/22/2014 13:48:00 09/22/2014 23:59:59 CLS Outpatient BELEM FUENTES MD [id number] 09/04/2014 11:08:00 09/04/2014 23:59:59 CLS Outpatient BELEM FUENTES MD [id number] 06/03/2014 10:41:00 06/03/2014 23:59:59 CLS Outpatient BELEM FUENTES MD [id number] 02/07/2014 14:56:00 02/07/2014 23:59:59 CLS Outpatient BELEM FUENTES MD [id number] 01/02/2014 16:23:00 01/02/2014 23:59:59 CLS Outpatient BELEM FUENTES MD [id number] 12/09/2013 09:10:00 12/09/2013 23:59:59 CLS Outpatient KIMBLE LAZARO GALINDO [id number] 11/01/2013 15:27:00 11/01/2013 23:59:59 CLS Outpatient BELEM FUENTES MD [id number] 09/03/2013 12:01:00 09/03/2013 23:59:59 CLS Outpatient BELEM FUENTES MD [id number] 07/22/2013 16:59:00 07/22/2013 23:59:59 CLS Outpatient BELEM FUENTES MD [id number] 04/19/2013 13:48:00 04/19/2013 23:59:59 CLS Outpatient GEORGINA ULRICH DDS [id number] 10/19/2012 08:03:00 10/19/2012 23:59:59 [place] [id number] 06/29/2012 10:01:00 06/29/2012 23:59:59 CLS Outpatient [id number] 06/29/2012 10:01:00 06/29/2012 23:59:59 CLS Outpatient BELEM FUENTES MD [id number] 03/19/2013 14:15:00 Document Registration [id number] 11/16/2018 14:13:00 11/16/2018 23:59:59 CLS Outpatient PRASHANTH SAWYER [facility] LAB CAD [id number] 06/29/2018 12:44:00 06/29/2018 23:59:59 CLS Outpatient BELEM FUENTES MD [facility] RAD HISTORY OF SMOKING [id number] 07/19/2017 10:30:00 07/19/2017 23:59:59 CLS Outpatient PRASHANTH SAWYER [facility] CARD ANXIETY [id number] 07/03/2017 07:00:00 07/03/2017 23:59:59 CLS Outpatient PRASHANTH SAWYER [facility] CARD F41.9 ANXIETY [id number] 06/28/2017 11:37:00 06/28/2017 23:59:59 CLS Outpatient PRASHANTH SAWYER [facility] CARD F41.9 ANXIETY [id number] 04/12/2017 07:41:00 04/12/2017 23:59:59 CLS Preadmit PRASHANTH SAWYER [facility] CARD F41.9 ANXIETY [id number] 06/07/2016 08:50:00 06/07/2016 11:55:00 DIS Outpatient MALINDA GRAHAM DO [facility] ANEMIA [id number] 06/03/2016 10:19:00 06/03/2016 10:39:00 DIS Outpatient MALINDA GRAHAM DO [facility] PREOP ANEMIA [id number] 05/03/2016 12:48:00 05/03/2016 15:00:00 DIS Outpatient MALINDA GRAHAM DO [facility] ANEMIA [id number] 05/02/2016 11:00:00 05/02/2016 11:19:00 DIS Outpatient MALINDA GRAHAM DO [facility] PREOP ANEMIA [id number] 04/07/2016 05:39:00 04/07/2016 23:59:59 CLS Outpatient MALINDA GRAHAM DO [facility] PREOP ANEMIA [id number] 07/24/2015 11:55:00 07/24/2015 19:10:00 DIS Outpatient MONICA HAUSER MD [facility] CATH HTN,HLP,ABNORMAL STRESS [id number] 07/08/2015 11:12:00 07/08/2015 23:59:59 CLS Outpatient PRASHANTH SAWYER [facility] CARD CAD,CARTOID ARTERY STENOSIS,HTN,HLD [id number] 05/29/2015 12:40:00 05/29/2015 13:00:00 DIS Emergency MARY DÍAZ VALIDATION ARCHITECT [facility] ER ABSCESS ON LEFT ARM [id number] 03/19/2014 07:12:00 03/20/2014 13:03:00 DIS Outpatient MONICA HAUSER MD [facility] CATH ABN STRESS TEST,CAD,HLP,HTN [id number] 03/04/2014 11:45:00 03/04/2014 23:59:59 CLS Outpatient PRASHANTH SAWYER [facility] CARD CAD,CAROTID BRUIT,HTN,HLP [id number] 02/25/2014 13:13:00 02/25/2014 23:59:59 CLS Outpatient PRASHANTH SAWYER [facility] RAD CAD,CAROTID BRUIT,HTN,HLP [id number] 12/09/2013 11:11:00 12/11/2013 14:45:00 DIS Inpatient BELEM FUENTES MD [facility] 4TH [id number] 05/29/2019 10:00:00 PEN Preadmit PRASHANTH SAWYER [facility] CARD CAD, CAROTID ARTERY STENOSIS [id number] 05/03/2019 09:00:00 PEN Preadmit MONICA HAUSER MD [facility] CATH SYNCOPE [id number] 05/20/2015 13:53:00 Document Registration [id number] 03/23/2012 11:10:00 Document Registration [id number] 01/03/2012 16:50:00 Document Registration
== END | disposition home or self-care (01) ==
LOC: CATH 06:56
PROVIDERS: ATTEND Internal Medicine Cardiovascular Disease
DX: I48.0 Paroxysmal atrial fibrillation (principal); I25.10 Atherosclerotic heart disease of native coronary artery without angina pectoris; R55 Syncope and collapse; I11.9 Hypertensive heart disease without heart failure; E78.5 Hyperlipidemia, unspecified; I65.29 Occlusion and stenosis of unspecified carotid artery; Z79.899 Other long term (current) drug therapy; F41.9 Anxiety disorder, unspecified; K29.70 Gastritis, unspecified, without bleeding; I25.2 Old myocardial infarction; I50.9 Heart failure, unspecified; I25.5 Ischemic cardiomyopathy; Z95.1 Presence of aortocoronary bypass graft; Z95.5 Presence of coronary angioplasty implant and graft; Z87.891 Personal history of nicotine dependence; D50.9 Iron deficiency anemia, unspecified
CPT/HCPCS: 33285

== ENCOUNTER → 2019-05-03 | Outpatient (CLI) | payer MEDICARE ==
[~2019-05-03] MED LIST changes: -LIDOCAINE 1% INJ 20 ML 20 ML VIAL ONE
[2019-05-03] MEDS: CATHETER FLUSH 10 ML SYR IV PRN ×2 (07:29→07:32)
[2019-05-03 08:31] VITALS: BP 124/78
[2019-05-03 08:32] VITALS: BP 99/66
--- NOTE | 2019-05-06 13:01 | STRESS TEST ---
DATE OF SERVICE: 05/03/2019 LEXISCAN MYOVIEW STRESS TEST REPORT REFERRING PHYSICIAN: . Baseline heart rate is 66. Baseline blood pressure 112/74. Baseline EKG is sinus rhythm with no ischemic changes. In summary, the patient was injected with 10.12 mCi of technetium-99 Myoview and the resting images were obtained. Then, the patient received 0.4 mg of Lexiscan followed by 29.3 mCi of technetium-99 Myoview. Throughout the test, there were no EKG changes. The resting and stress images were reviewed and compared in the short axis, horizontal long axis, and vertical long axis views. Review of the images showed diaphragmatic attenuation with motion artifact, there is no significant ischemia or infarction was noted. SSS is 0. TID value is mildly increased of 1.22. On the gated images, the left ventricle appeared to be normal size with normal contractility. Calculated ejection fraction 54%. CONCLUSION: 1. The patient tolerated Lexiscan well. 2. Motion artifact with no significant ischemia or infarction on SPECT images. 3. Transient ischemic dilatation with TID value 1.22. 4. Normal left ventricular size with normal contractility. Calculated ejection fraction 54%. Job ID: [id number] DocumentID: [id number] Dictated Date: 05/06/2019 12:15:11 Rug Designer Date: 05/06/2019 13:00:30 Dictated By: ALTAGRACIA SU MD
== END ==
LOC: CARD 06:55
PROVIDERS: ATTEND Physician Assistant
DX: I25.10 Atherosclerotic heart disease of native coronary artery without angina pectoris (principal); I65.29 Occlusion and stenosis of unspecified carotid artery; I10 Essential (primary) hypertension; E78.5 Hyperlipidemia, unspecified
CPT/HCPCS: 78452; 93017; 93306

== ENCOUNTER → 2019-06-19 | Day surgery (SDC) | payer MEDICARE ==
[2019-06-19] VITALS (10 sets, daily range): BP systolic 110–166; BP diastolic 72–94
[~2019-06-19] VITALS: Ht 175.3 cm; Wt 104.5 kg
[~2019-06-19] MED LIST changes: +AMLO5TAB4 PO; +ASPI-586 PO; +ATOR20TA49 PO; +CLOPIDOGREL 75 MG (PLAVIX) TABLET PO SCH; +HEParin (CATH LAB) 2,000 ML IV ONE; +HYDR-3816 PO; +ICOS1CAP PO; +LIDOCAINE 1% INJ 20 ML 20 ML VIAL ONE; +MIDAZOLAM 5 MG/5 ML (VERSED) VIAL ONE; +MULT-1061 PO; +NON-FORMULARY MEDICATION 1 EA EA (Amlodipine Besylate (Norvasc) 5 MG) PO SCH; +NON-FORMULARY MEDICATION 1 EA EA (Aspirin (Aspir 81) 81 MG) PO SCH; +NON-FORMULARY MEDICATION 1 EA EA (Hydrocodone/Acetaminophen (Hydrocodone-Acetamin 7.5-325) PO SCH; +NON-FORMULARY MEDICATION 1 EA EA (Pregabalin (Lyrica) 50 MG) PO SCH; +NON-FORMULARY MEDICATION 1 EA EA (Temazepam 30 MG) PO SCH; +NS IV 1000 ML 1,000 ML IV SCH; +NS IV 1000 ML 1,000 ML ONE; +OMEGA 3 (FISH OIL) 1000 MG CAP PO SCH; +OMG1KC PO; +PATIENT MAY USE OWN MEDS, ALL PO SCH; +PREG50CA2 PO; +QUET200T57 PO; +QUEtiapine 200 MG (SEROquel) TAB IMMEDIATE RELEASE PO SCH; -REGADENOSON 0.4 MG/5 ML SYR (LEXISCAN) IV ONE; +[UNRECOGNIZED DRUG - OTHER] PO SCH; +fentaNYL INJECTION 100 MCG/2 ML AMP ONE
[2019-06-19 11:02] LABS: HEMOGLOBIN 15.4 G/DL (13.3-17.7); MEAN PLATELET VOLUME 9.2 FL (7.4-10.4); WHITE BLOOD COUNT 5.2 10^3/uL (4.3-11.0)
[2019-06-19 11:13] LABS: INR 0.9 (0.8-1.4); PROTHROMBIN TIME PATIENT 12.9 SEC (12.2-14.7)
--- NOTE | 2019-06-19 11:15 | Diagnostic Imaging Report ---
INDICATION: Coronary artery disease FINDINGS: The sternal wires midline. Loop recorder overlies the left chest. There is no failure, effusion, pneumothorax, or infiltrate. IMPRESSION: No acute appearing abnormality Dictated by: Dictated on workstation # [id number]
[2019-06-19 11:19] LABS: ALANINE AMINOTRANSFERASE 59 U/L (0-55); ALBUMIN 4.8 GM/DL (3.2-4.5); ALKALINE PHOSPHATASE 72 U/L (40-136); BILIRUBIN,TOTAL 0.7 MG/DL (0.1-1.0); BUN/CREATININE RATIO 15; CALCIUM 10.1 MG/DL (8.5-10.1); CARBON DIOXIDE 25 MMOL/L (21-32); CHLORIDE 105 MMOL/L (98-107); CHOLESTEROL 192 MG/DL (< 200); CREATININE SERUM 1.14 MG/DL (0.60-1.30); GFR ESTIMATED > 60; GLUCOSE 94 MG/DL (70-105); HDL CHOLESTEROL 38 MG/DL (40-60); POTASSIUM 4.4 MMOL/L (3.6-5.0); SODIUM 139 MMOL/L (135-145); TOTAL PROTEIN 7.9 GM/DL (6.4-8.2); TRIGLYCERIDES 351 MG/DL (<150); VLDL CHOLESTEROL 70 MG/DL (5-40)
--- NOTE | 2019-06-19 11:29 | NUR ---
SPOKE WITH PT (HE BROUGHT IN BOTTLES) WELL CALLING [facility] TO COMPLETE THE MED REC. I SPOKE WITH THE NURSE TO [facility] TO VERIFY THE LYRICA (PT DID NOT KNOW THE STRENGTH), SHE SAID THE STRENGTH WAS 50MG UP TO TID, BUT PT SAYS HE ONLY TAKES BID. OTC MEDS: ASPIRIN 81M DAILY FISH OIL 100M DAILY CENTRUM MENS SILVER; 1 DAILY Addendum: 06/19/19 at 1326 by HAMMAD GAFFNEY academic services coordinator SPOKE WITH [facility] TO GET THE DATES FOR HIS MEDS FILLED: 05-18-2019 CLOPIDOGREL #90 2019 AMLODIPINE #90 2019 HYDROCODONE #280 2019 QUETIAPINE #30 2019 SIMVASTATIN #30 2019 TEMAZEPAM #30 I LEFT A MESSAGE WITH THE PATIENT LEAN SPECIALIST AT [facility] TO FIND OUT THE LAST TIME HE PICKED UP LYRICA USING THE PALS PROGRAM.
--- NOTE | 2019-06-19 13:43 | Cardiac Procedure Note-CS/ASA ---
Pre-Procedure Note Pre-Op Procedure Note H&P Reviewed The H&P was reviewed, patient examined and no changes noted. Date H&P Reviewed: Jun 19, 2019 Time H&P Reviewed: 13:42 Conscious Sedation Pre-Proced Time 13:42 ASA Score 3 For ASA 3 and 4: Consider anesthesia and medical clearance. Also, for patients with a history of failed moderate sedation consider anesthesia. Airway Lungs Heart ASA score ASA 1: a normal healthy patient ASA 2: a patient with a mild systemic disease (mid diabetes, controlled hypertension, obesity x ASA 3: a patient with a severe systemic disease that limits activity (angina, COPD, prior Myocardial infarction) ASA 4: a patient with an incapacitating disease that is a constant threat to life (CHF, renal failure) ASA 5: a moribund patient not expected to survive 24 hrs. (ruptured aneurysm) ASA 6: a declared brain- patient whose organs are being harvested. For emergent operations, add the letter E after the classification Mallampati Classification Grade 3 Sedation Plan Analgesia, Amnesia, Plan communicated to team members, Discussed options with patient/fam, Discussed risks with patient/fam The patient is an appropriate candidate to undergo the planned procedure, sedation, and anesthesia. The patient immediately re-assessed prior to indication. ALTAGRACIA SU MD Jun 19, 2019 13:42
--- NOTE | 2019-06-19 14:02 | Discharge Inst-Post CATH ---
Discharge Inst-CATH/EP Problems Reviewed?: Yes Post Cardiac Cath/EP D/C Inst Follow Up/Plan Appointment with Dr. SU's office in 4 weeks <b>CARDIAC CATH/EP PROCEDURE DISCHARGE INSTRUCTIONS</b> ACTIVITY * Go Home directly and rest. * Limit activity of the leg (or wrist if it was used) for 7 days including aerobics, swimming, jogging, bicycling, etc. * Restrict stair-climbing for 7 days if possible, if not, climb up with your non-cath leg, then bring together on the same step. * Avoid lifting, pushing, pulling or excessive movement of the affected extremity for 7 days. * Customary sexual activity may be resumed after 2 days-use caution not to use a position that strains or causes pain to the affected extremity. * No driving for 24 hours. * NO SMOKING. * Avoid straining for bowel movements for 7 days. * Gentle walking on level ground is allowed. * Returning to work will depend on the type of procedure and the results. Your doctor will discuss this with you. CALL YOUR DOCTOR FOR ANY OF THE FOLLOWING: *If bleeding from the puncture site occurs- Apply gentle pressure to site with clean cloth and call your doctor or EMS. * If a knot or lump forms under the skin, increases in size, or causes pain. * If bruising appears to be worsening or moving further down your leg instead of disappearing. * Temperature above 101 F. CARE OF YOUR GROIN INCISION; * Bruising or purple discoloration of the skin near the puncture site is common. * You may shower only, no bathtub bathing for 5 days. Be careful to avoid slipping as your leg may feel stiff. * If a closure device was used on your femoral artery, please see the attached guide regarding care of the device and your leg. * Leave dressing on FOR 24 hours. CARE OF YOUR WRIST INCISION; * Bruising or purple discoloration of the skin near the puncture site is common. * You may shower. * DO NOT submerge wrist. * Leave dressing on FOR 24 hours. ALTAGRACIA SU MD Jun 19, 2019 2:02 pm
--- NOTE | 2019-06-19 14:07 | Cardiac Cath Report ---
Cardiac Cath Report Physician (s)/Conveyor Belt Installer (s) Physician ALTAGRACIA SU MD Pre-Procedure Diagnosis Pre-Procedure Diagnosis: coronary artery disease Post-Procedure Note Procedure Start Date: Jun 19, 2019 Name of Procedure: Left heart catheterization Vein graft angiogram Left ventriculogram Aortic arch angiogram Findings/Procedure Note PROCEDURE NOTE: 64 years old gentleman with history of coronary artery disease, CABG, multiple intervention the past. Had an abnormal stress test, examined chest is scheduled for cardiac catheterization. After explaining the procedure to the patient, all pros and cons were explained, all questions were answered. The patient signed the consent and then he was placed on the cardiac catheterization laboratory. Groin was prepped SL fashion local anesthesia was used. Sheath placed in the right femoral artery. Nicole right and left catheter were used to access the coronary system. Pigtail was used to access the left ventricular cavity. Left ventriculogram was done Aortic arch angiogram was done At the end of the procedure the sheath was removed. Closure device FINDINGS: Hemodynamics LV 101/10, end-diastolic pressure of 10 Aorta 90 70 57 mean of 75 ANATOMY: Left Main is free of obstructive disease Left Anterior Descending discussed 5 with orkg-ry-eczciftn disease nonobstructive disease AKBAR to LAD is occluded Left Circumflex is occluded proximally, vein graft to the obtuse marginal branch is patent Right Coronary Artery has patent stent with mild to moderate in-stent restenosis nonobstructive disease Vein graft angiogram, the lowest 2 vein grafts are occluded presumably to the right coronary artery and diagonal branch The upper vein graft has diffuse ectasia patent to the obtuse marginal branch with good flow AKBAR angiogram showed occluded AKBAR LV Gram was done showing normal left ventricular size with estimated ejection fraction 50 percent Aorta evaluation done with aortic arch angiogram showing hypertensive changes, no dissection or aneurysm, origin of the great vessels of the neck were normal including carotid and subclavian, mild to moderate disease CONCLUSION: 1. Mild to moderate disease in the LAD with occluded AKBAR and vein graft, good flow to the distal LAD territory 2. Occluded circumflex artery with patent vein graft to the obtuse marginal branch 3. Occluded vein graft to the right, there are multiple stents in the right coronary artery and the right coronary artery is patent with mild to moderate in-stent restenosis 4. Normal left ventricular size with preserved systolic function estimated ejection fraction 50 percent 5. Hypertensive changes in the aortic arch, no dissection or aneurysm DISCUSSION AND RECOMMENDATION: Medical therapy is recommended no intervention is needed X line patient has poorly controlled lipid, his LDL is 94, triglyceride 351 has been on simvasta tin, I will stop simvastatin and start Lipitor 20 mg daily and Vascepa 1 g twice a day Anesthesia Type: Conscious Sedation Estimated blood loss (mL): 25 ml Contrast Amount: 95 ml Total Radiation Dose: 371 mGy Post-Procedure Diagnosis Post-operative diagnosis: Chest pain Coronary artery disease Hypertension Hyperlipidemia ALTAGRACIA SU MD Jun 19, 2019 2:07 pm
--- NOTE | 2019-06-19 16:56 | NUR ---
THIS RN PHONED JAVI AT [facility] IN [place] AND ASKED FOR THEM TO SEND TO THE [facility]. [facility] TO SEND TO [facility].
== END ==
LOC: CATH 10:25 → SDC 14:30
PROVIDERS: ATTEND Internal Medicine Cardiovascular Disease
DX: T82.855A Stenosis of coronary artery stent, initial encounter (principal); I25.10 Atherosclerotic heart disease of native coronary artery without angina pectoris; I97.89 Other postprocedural complications and disorders of the circulatory system, not elsewhere classified; I48.91 Unspecified atrial fibrillation; I10 Essential (primary) hypertension; E78.5 Hyperlipidemia, unspecified; D50.9 Iron deficiency anemia, unspecified; F41.9 Anxiety disorder, unspecified; Z79.02 Long term (current) use of antithrombotics/antiplatelets; Z79.82 Long term (current) use of aspirin; Z95.818 Presence of other cardiac implants and grafts; Z95.1 Presence of aortocoronary bypass graft; Z87.891 Personal history of nicotine dependence; Z79.899 Other long term (current) drug therapy; Z82.3 Family history of stroke; Z80.9 Family history of malignant neoplasm, unspecified; Z82.49 Family history of ischemic heart disease and other diseases of the circulatory system
CPT/HCPCS: 36221; 36415; 71045; 80053; 80061; 85027; 85610; 85730; 87081; 93459

== ENCOUNTER → 2020-11-27 | Outpatient (CLI) | payer MEDICARE ==
[~2020-11-27] MED LIST changes: -CLOPIDOGREL 75 MG (PLAVIX) TABLET PO SCH; -HEParin (CATH LAB) 2,000 ML IV ONE; +HYDR-34 PO; -HYDR-3816 PO; -LIDOCAINE 1% INJ 20 ML 20 ML VIAL ONE; -MIDAZOLAM 5 MG/5 ML (VERSED) VIAL ONE; -NON-FORMULARY MEDICATION 1 EA EA (Amlodipine Besylate (Norvasc) 5 MG) PO SCH; -NON-FORMULARY MEDICATION 1 EA EA (Aspirin (Aspir 81) 81 MG) PO SCH; -NON-FORMULARY MEDICATION 1 EA EA (Hydrocodone/Acetaminophen (Hydrocodone-Acetamin 7.5-325) PO SCH; -NON-FORMULARY MEDICATION 1 EA EA (Pregabalin (Lyrica) 50 MG) PO SCH; -NON-FORMULARY MEDICATION 1 EA EA (Temazepam 30 MG) PO SCH; -NS IV 1000 ML 1,000 ML IV SCH; -NS IV 1000 ML 1,000 ML ONE; -OMEGA 3 (FISH OIL) 1000 MG CAP PO SCH; -PATIENT MAY USE OWN MEDS, ALL PO SCH; +QUET200T29 PO; -QUET200T57 PO; -QUEtiapine 200 MG (SEROquel) TAB IMMEDIATE RELEASE PO SCH; +SIMV40TA25 PO; -[UNRECOGNIZED DRUG - OTHER] PO SCH; -fentaNYL INJECTION 100 MCG/2 ML AMP ONE
--- NOTE | 2020-11-27 17:13 | Diagnostic Imaging Report ---
CT Lung Screening INDICATION: 93-[id number]-xhim smoking history. Quit smoking eight years ago. TECHNIQUE: Noncontrast, low-dose CT imaging performed according to the lung cancer screening protocol. Auto Exposure Controls were utilize during the CT exam to meet ALARA standards for radiation dose reduction. COMPARISON: Low-dose lung screening chest CT from 06/29/2018. FINDINGS:Severe centrilobular emphysema. Calcified granuloma in the right middle lobe. No new suspicious pulmonary nodule or mass. No endobronchial lesions. No pleural effusion or pneumothorax. Sternotomy with CABG. Coronary stents. Stable prominence of the central pulmonary arteries and right heart. Prominent mediastinal lymph nodes remain subcentimeter in short axis dimension and have not appreciably changed since the 2018 exam. Cholecystectomy. No acute osseous findings. Chronic left rib fractures. IMPRESSION: 1. No suspicious pulmonary nodule or mass. Recommend continue annual screening with low-dose chest CT in 12 months. 2. Severe centrilobular emphysema. 3. Stable prominent-caliber central pulmonary arteries and right heart, consistent with pulmonary arterial hypertension. LUNG-RADS CATEGORY: 1. MODIFIER: None. Dictated by: Dictated on workstation # [id number]
== END ==
LOC: RAD 16:16
PROVIDERS: ATTEND Internal Medicine
DX: Z12.2 Encounter for screening for malignant neoplasm of respiratory organs (principal); J43.2 Centrilobular emphysema; I27.21 Secondary pulmonary arterial hypertension; Z87.891 Personal history of nicotine dependence
CPT/HCPCS: 71271

== ENCOUNTER → 2021-01-20 | Outpatient (CLI) | payer MEDICARE ==
[~2021-01-20] VITALS: Ht 178 cm; Wt 102.0 kg
[~2021-01-20] MED LIST changes: +REGADENOSON 0.4 MG/5 ML SYR (LEXISCAN) IV ONE
[2021-01-20] MEDS: CATHETER FLUSH 10 ML SYR IV PRN ×2 (12:20→13:20)
[2021-01-20 13:20] VITALS: BP 143/92
--- NOTE | 2021-01-20 15:14 | Cardiology Stress Test Report ---
Stress Test Report Date of Procedure/Referring: Date of Procedure: Jan 20, 2021 Chica Ferrell Admitting Physician Andrew Brown MD Indications: CAD Baseline Heart Rate: 75 Baseline Blood Pressure: Blood Pressure Systolic: 143 Blood Pressure Diastolic: 92 Baseline Vitals Vital Signs Date Time Temp Pulse Resp B/P (MAP) Pulse Ox O2 Delivery O2 Flow Rate FiO2 01/20/21 13:20 76 16 143/92 (109) 95 Room Air Baseline EKG: Baseline EKG: NSR Summary After explaining the procedure to the patient, he signed a consent and then brought to the stress nuclear laboratory. Patient received 0.4 mg Lexiscan for stress test, ECG, heart rate and blood pressure were monitored continuously. Resting and stress dose of radio tracer were injected, imaging was acquired and reviewed in short axis, horizontal long axis and vertical long axis views. TID: 1.08 SSS: 5 SDS: 4 EF: 45 1. Patient tolerated Lexiscan well 2. Diaphragmatic attenuation with mild reversible ischemia involving the basal to mid inferior wall and inferolateral wall 3. Normal left ventricular size, mild hypokinesia of the inferior wall, EF 45% ALTAGRACIA SU MD Jan 20, 2021 15:14
== END ==
LOC: CARD 11:30
PROVIDERS: ATTEND Physician Assistant
DX: I25.10 Atherosclerotic heart disease of native coronary artery without angina pectoris (principal); I51.89 Other ill-defined heart diseases
CPT/HCPCS: 78452; 93017; 93306; A9502

== ENCOUNTER → 2021-01-21 | Outpatient (CLI) | payer MEDICARE ==
[~2021-01-21] MED LIST changes: -REGADENOSON 0.4 MG/5 ML SYR (LEXISCAN) IV ONE; +RT-ALBUTEROL SULF 2.5 MG/3 ML PRE-MIX VIAL INH ONE
[2021-01-21 15:38] LABS: ABG BASE EXCESS 0.4 MMOL/L (-2.5-2.5); ABG OXYGEN SATURATION 97 % (94-100); ABG PCO2 40 MMHG (35-45); ABG PH 7.41 (7.37-7.43); ABG PO2 86 MMHG (79-93); ABG TCO2 25.8 MMOL/L (21.0-31.0)
[2021-01-21 15:50] LABS: ALLENS TEST POS; PATIENT TEMP 36.7; VENTILATOR NO
== END ==
LOC: RT 15:02
PROVIDERS: ATTEND Internal Medicine Critical Care Medicine
DX: Z13.83 Encounter for screening for respiratory disorder NEC (principal); R06.00 Dyspnea, unspecified
CPT/HCPCS: 36600; 82805; 94060; 94726; 94729

== ENCOUNTER 2021-02-17 09:00 | Day surgery (SDC) | payer MEDICARE ==
[~2021-02-17] VITALS: Ht 177.8 cm; Wt 100.0 kg
[2021-02-17] VITALS (10 sets, daily range): BP systolic 91–113; BP diastolic 57–74
--- NOTE | 2021-02-17 07:28 | Diagnostic Imaging Report ---
CHEST 1 VIEW, AP/PA ONLY Indication: Shortness of breath and coronary artery disease Comparison: 06/19/2019 Findings: Stable decreased pulmonary vascular markings in the lung apices likely due to emphysema. No consolidation within the visualized lungs. Posterior lower lobes are poorly evaluated. No pleural effusion or pneumothorax. Stable cardiac silhouette with changes of CABG. Impression: 1. No acute cardiopulmonary process by portable radiography. Dictated by: Dictated on workstation # [id number]
[2021-02-17 07:34] LABS: HEMATOCRIT 44 % (40-54); HEMOGLOBIN 14.6 g/dL (13.3-17.7); MEAN CORPUSCULAR HEMOGLOBIN 31 pg (25-34); MEAN CORPUSCULAR HGB CONC 34 g/dL (32-36); MEAN CORPUSCULAR VOLUME 91 fL (80-99); MEAN PLATELET VOLUME 8.9 fL (9.0-12.2); PLATELET COUNT 202 10^3/uL (130-400); WHITE BLOOD COUNT 5.8 10^3/uL (4.3-11.0)
[2021-02-17 07:43] LABS: INR 0.9 (0.8-1.4); PROTHROMBIN TIME PATIENT 12.7 SEC (12.2-14.7)
[2021-02-17] MEDS: NS IV 1000 ML 1,000 ML IV SCH ×2 (07:44→09:11)
[2021-02-17 07:50] LABS: ALBUMIN 4.4 GM/DL (3.2-4.5); BILIRUBIN,TOTAL 0.5 MG/DL (0.1-1.0); CALCIUM 9.6 MG/DL (8.5-10.1); CREATININE SERUM 1.34 MG/DL (0.60-1.30); POTASSIUM 4.3 MMOL/L (3.6-5.0); TOTAL PROTEIN 7.4 GM/DL (6.4-8.2)
--- NOTE | 2021-02-17 08:24 | Conscious Sedation/ASA ---
Conscious Sedation Pre-Proced Time 08:24 ASA Score 3 For ASA 3 and 4: Consider anesthesia and medical clearance. Also, for patients with a history of failed moderate sedation consider anesthesia. Airway Lungs Heart ASA score ASA 1: a normal healthy patient ASA 2: a patient with a mild systemic disease (mid diabetes, controlled hypertension, obesity x ASA 3: a patient with a severe systemic disease that limits activity (angina, COPD, prior Myocardial infarction) ASA 4: a patient with an incapacitating disease that is a constant threat to life (CHF, renal failure) ASA 5: a moribund patient not expected to survive 24 hrs. (ruptured aneurysm) ASA 6: a declared brain- patient whose organs are being harvested. For emergent operations, add the letter E after the classification Mallampati Classification Grade 3 Sedation Plan Analgesia, Amnesia, Plan communicated to team members, Discussed options with patient/fam, Discussed risks with patient/fam The patient is an appropriate candidate to undergo the planned procedure, sedation, and anesthesia. The patient immediately re-assessed prior to indication. ALTAGRACIA SU MD February 17, 2021 08:24
--- NOTE | 2021-02-17 08:57 | Discharge Inst-Post CATH ---
Discharge Inst-CATH/EP Problems Reviewed?: Yes Post Cardiac Cath/EP D/C Inst Follow Up/Plan Appointment with Dr. Hauser's office in 2 to 4 weeks <b>CARDIAC CATH/EP PROCEDURE DISCHARGE INSTRUCTIONS</b> ACTIVITY * Go Home directly and rest. * Limit activity of the leg (or wrist if it was used) for 7 days including aer obics, swimming, jogging, bicycling, etc. * Restrict stair-climbing for 7 days if possible, if not, climb up with your non-cath leg, then bring together on the same step. * Avoid lifting, pushing, pulling or excessive movement of the affected extremi ty for 7 days. * Customary sexual activity may be resumed after 2 days-use caution not to use a position that strains or causes pain to the affected extremity. * No driving for 24 hours. * NO SMOKING. * Avoid straining for bowel movements for 7 days. * Gentle walking on level ground is allowed. * Returning to work will depend on the type of procedure and the results. Your doctor will discuss this with you. CALL YOUR DOCTOR FOR ANY OF THE FOLLOWING: *If bleeding from the puncture site occurs- Apply gentle pressure to site with clean cloth and call your doctor or EMS. * If a knot or lump forms under the skin, increases in size, or causes pain. * If bruising appears to be worsening or moving further down your leg instead of disappearing. * Temperature above 101 F. CARE OF YOUR GROIN INCISION; * Bruising or purple discoloration of the skin near the puncture site is common. * You may shower only, no bathtub bathing for 5 days. Be careful to avoid slipping as your leg may feel stiff. * If a closure device was used on your femoral artery, please see the attached guide regarding care of the device and your leg. * Leave dressing on FOR 24 hours. CARE OF YOUR WRIST INCISION; * Bruising or purple discoloration of the skin near the puncture site is common. * You may shower. * DO NOT submerge wrist. * Leave dressing on FOR 24 hours. ALTAGRACIA HAUSER MD February 17, 2021 08:57
[~2021-02-17 09:00] MED LIST changes: +ASCO-262 PO; +ASPI-1238 PO; +ATOR20TA66 PO; +FURO20TA4 PO; +HEParin (CATH LAB) 2,000 ML IV ONE; +LIDOCAINE 1% INJ 20 ML 20 ML VIAL ONE; +LISI20TA26 PO; +MIDAZOLAM 5 MG/5 ML (VERSED) VIAL ONE; +MULT-1136 PO; +NS IV 1000 ML 1,000 ML IV SCH; +NS IV 1000 ML 1,000 ML ONE; +PATIENT MAY USE OWN MEDS, ALL PO SCH; +POTA10TA36 PO; +QUET100T33 PO; -RT-ALBUTEROL SULF 2.5 MG/3 ML PRE-MIX VIAL INH ONE; +fentaNYL INJ 100 MCG/2 ML AMP ONE
--- NOTE | 2021-02-17 09:02 | Cardiac Cath Report ---
Cardiac Cath Report Physician (s)/Operations Management Trainee (s) Physician ALTAGRACIA SU MD Pre-Procedure Diagnosis Pre-Procedure Diagnosis: coronary artery disease Post-Procedure Note Procedure Start Date: February 17, 2021 Name of Procedure: Left heart catheterization Vein graft angiogram Findings/Procedure Note PROCEDURE NOTE: 66 years old gentleman with history of coronary artery disease, CABG, had an abnormal stress test, scheduled for cardiac catheterization possible PTCA After explaining the procedure to the patient, all pros and cons were explained, all questions were answered. The patient signed the consent and then he was placed on the cardiac catheterization laboratory. Groin was prepped SL fashion local anesthesia was used. Sheath placed in the right femoral artery. Nicole right and left catheter were used to access the coronary system.Vein Graft evaluated. AKBAR evaluated. Pigtail was used to access the left ventricular cavity. Left ventriculogram was not done, pressure was measured At the end of the procedure the sheath was removed. Closure device was deployed FINDINGS: Hemodynamics LV 94/11, end-diastolic pressure of 11 Aorta 91/46 mean of 65 ANATOMY: Left Main has mild to moderate disease Left Anterior Descending has mild to moderate disease, diagonal artery is occluded, the AKBAR to LAD is occluded and the vein graft to the diagonal artery is occluded Left Circumflex is occluded with patent vein graft to the OM Right Coronary Artery has multiple stents, patent stent, distally there is 50 to 60% stenosis, borderline lesion just above the bifurcation AKBAR to LAD is known to be occluded Vein Graft evaluation showed 3 vein grafts Vein graft to the obtuse marginal branch is patent with diffuse ectasia, small vessel disease distally Vein graft to the diagonal artery that was patent in 2016 noted to be occluded on the study Vein graft to the right coronary artery is known to be occluded LV Gram was not done to limit the exposure to contrast, pressure was measured CONCLUSION: 1. Progression of his underlying coronary artery disease, occluded AKBAR to LAD and occluded vein graft to the diagonal artery that is new compared to the previous study, old occlusion of the vein graft to the right coronary artery 2. Patent vein graft to the obtuse marginal branch with diffuse ectasia and small vessel disease distally 3. Mild disease in the left main and [place] LAD 4. Patent stent in the right coronary artery with moderate disease distal to the stent just above the bifurcation, nonobstructive disease, small vessel disease distally 5. Normal left ventricular end-diastolic pressure DISCUSSION AND RECOMMENDATION: Continue to maximize medical therapy Anesthesia Type: Conscious Sedation Estimated blood loss (mL): 25 ml Contrast Amount: 38 ml Total Radiation Dose: 678 mGy Post-Procedure Diagnosis Post-operative diagnosis: Chest pain Coronary artery disease Hypertension Hyperlipidemia ALTAGRACIA SU MD February 17, 2021 09:02
[2021-02-17] MEDS ORDERED: GEMF600T PO (09:15)
== END 2021-02-17 13:29 | disposition home or self-care (01) ==
LOC: SDC 09:22 → CATH 13:29
PROVIDERS: ATTEND Internal Medicine Cardiovascular Disease
DX: I25.10 Atherosclerotic heart disease of native coronary artery without angina pectoris (principal); I11.0 Hypertensive heart disease with heart failure; I50.1 Left ventricular failure, unspecified; I25.5 Ischemic cardiomyopathy; D64.9 Anemia, unspecified; I65.29 Occlusion and stenosis of unspecified carotid artery; E78.2 Mixed hyperlipidemia; F41.9 Anxiety disorder, unspecified; Z79.82 Long term (current) use of aspirin; Z79.891 Long term (current) use of opiate analgesic; Z79.02 Long term (current) use of antithrombotics/antiplatelets; Z79.899 Other long term (current) drug therapy; Z87.891 Personal history of nicotine dependence; Z95.1 Presence of aortocoronary bypass graft; Z83.3 Family history of diabetes mellitus
CPT/HCPCS: 71045; 80053; 80061; 85027; 85610; 85730; 87081; 93459; C1760; C1894; 36415

== ENCOUNTER → 2021-12-15 | Outpatient (CLI) | payer MEDICARE ==
[~2021-12-15] VITALS: Ht 177 cm; Wt 104.0 kg
[~2021-12-15] MED LIST changes: +CATHETER FLUSH 10 ML SYR IVP PRN; +GEMF600T PO; -HEParin (CATH LAB) 2,000 ML IV ONE; -LIDOCAINE 1% INJ 20 ML 20 ML VIAL ONE; -MIDAZOLAM 5 MG/5 ML (VERSED) VIAL ONE; -NS IV 1000 ML 1,000 ML IV SCH; -NS IV 1000 ML 1,000 ML ONE; -PATIENT MAY USE OWN MEDS, ALL PO SCH; -POTA10TA36 PO; +POTA10TA37 PO; +REGADENOSON 0.4 MG/5 ML SYR (LEXISCAN) IV ONE; -fentaNYL INJ 100 MCG/2 ML AMP ONE
[2021-12-15 09:05] VITALS: BP 158/95
--- NOTE | 2021-12-15 12:04 | Cardiology Stress Test Report ---
Stress Test Report Date of Procedure/Referring: Date of Procedure: Dec 15, 2021 PCP Altagracia Hauser MD Admitting Physician Andrew Brown MD Indications: CAD Baseline Heart Rate: 82 Baseline Blood Pressure: Blood Pressure Systolic: 158 Blood Pressure Diastolic: 95 Baseline Vitals Vital Signs Date Time Temp Pulse Resp B/P (MAP) Pulse Ox O2 Delivery O2 Flow Rate FiO2 12/15/21 09:05 82 158/95 (116) Baseline EKG: Baseline EKG: NSR Summary After explaining the procedure to the patient, he signed a consent and then brought to the stress nuclear laboratory. Patient received 0.4 mg Lexiscan for stress test, ECG, heart rate and blood pressure were monitored continuously. Resting and stress dose of radio tracer were injected, imaging was acquired and reviewed in short axis, horizontal long axis and vertical long axis views. TID: 1.09 SSS: 7 SDS: 6 EF: 52 1. Patient tolerated Lexiscan well 2. Diaphragmatic attenuation with fixed defect involving the basal to mid inferior wall, mild reversible ischemia involving the anterior wall and anterolateral wall. 3. Normal left ventricular size, EF 52% ALTAGRACIA HAUSER MD Dec 15, 2021 12:04
== END ==
LOC: CARD 08:00
PROVIDERS: ATTEND Internal Medicine Cardiovascular Disease
DX: I25.10 Atherosclerotic heart disease of native coronary artery without angina pectoris (principal); I10 Essential (primary) hypertension
CPT/HCPCS: 78452; 93017; A9502

== ENCOUNTER 2021-12-30 09:30 | Day surgery (SDC) | payer MEDICARE ==
[~2021-12-30] VITALS: Ht 177.8 cm; Wt 105.8 kg
[2021-12-30] VITALS (21 sets, daily range): BP systolic 138–164; BP diastolic 89–107
[~2021-12-30 09:30] MED LIST changes: +ASPIRIN 81 MG CHEW (CHILDREN'S ASA) ONE; +ASPIRIN 81 MG CHEW (CHILDREN'S ASA) PO ONE; +CATHETER FLUSH 10 ML SYR IV PRN; -CATHETER FLUSH 10 ML SYR IVP PRN; +GEMF600T88 PO; +HEParin (CATH LAB) 2,000 ML IV ONE; +LIDOCAINE 1% INJ 50 ML (XYLOCAINE) VIAL ONE; +NS IV 1000 ML 1,000 ML IV ONE; -REGADENOSON 0.4 MG/5 ML SYR (LEXISCAN) IV ONE
[2021-12-30] MEDS ORDERED: MIDAZOLAM 5 MG/5 ML (VERSED) VIAL ONE (10:15)
[2021-12-30] MEDS ORDERED: fentaNYL INJ 100 MCG/2 ML AMP ONE (10:15)
[2021-12-30] MEDS ORDERED: NITRO DRIP 25000 MCG/D5W 250 ML IV ONE (10:15)
[2021-12-30] MEDS ORDERED: HEParin 1000 UNIT/ML (10ML VIAL) FOR BOLUS ONE (10:15)
[2021-12-30] MEDS ORDERED: VERAPAMIL 5 MG/2 ML (CALAN) VIAL IV ONE (10:20)
--- NOTE | 2021-12-30 10:26 | Pre-Op Note & Conscious Sedat ---
Pre-Operative Progress Note H&P Reviewed The H&P was reviewed, patient examined and no changes noted. Date H&P Reviewed: Dec 30, 2021 Time H&P Reviewed: 10:25 Pre-Op Diagnosis: Coronary artery disease with angina pectoris and abnormal stress test Conscious Sedation Pre-Proced ASA Score 2 For ASA 3 and 4: Consider anesthesia and medical clearance. Also, for patients with a history of failed moderate sedation consider anesthesia. Airway Lungs Heart ASA score ASA 1: a normal healthy patient ASA 2: a patient with a mild systemic disease (mid diabetes, controlled hypertension, obesity ASA 3: a patient with a severe systemic disease that limits activity (angina, COPD, prior Myocardial infarction) ASA 4: a patient with an incapacitating disease that is a constant threat to life (CHF, renal failure) ASA 5: a moribund patient not expected to survive 24 hrs. (ruptured aneurysm) ASA 6: a declared brain- patient whose organs are being harvested. For emergent operations, add the letter E after the classification Mallampati Classification Grade 2 Sedation Plan Analgesia, Amnesia, Plan communicated to team members, Discussed options with patient/fam, Discussed risks with patient/fam The patient is an appropriate candidate to undergo the planned procedure, sedation, and anesthesia. The patient immediately re-assessed prior to indication. BELEM REED JR, MD Dec 30, 2021 10:26
[2021-12-30] MEDS ORDERED: morphine INJ 4 MG/ML 1 ML (VIAL/SYRINGE) ONE (11:21)
--- NOTE | 2021-12-30 12:10 | Cardiac Cath Report ---
CARDIAC CATHETERIZATION DATE OF PROCEDURE: 12/30/2021 INDICATION: Coronary artery disease with angina pectoris and abnormal stress test. HISTORY: The patient is a 66 year old male with a known history of coronary artery disease with previous coronary bypass surgery years ago. His only remaining graft is a saphenous vein graft to the left circumflex system. The left internal mammary artery graft and saphenous vein graft to the right coronary artery are occluded. He also has stents in the right coronary artery. He has been having ongoing symptoms concerning for angina. He underwent a nuclear stress test that showed fixed inferior defect as well as an distal anterior and apical defect. As such, he is now referred for a cardiac ca theterization. PROCEDURES PERFORMED: 1. Left heart catheterization with hemodynamic measurements. 2. Diagnostic unga coronary angiography. 3. Diagnostic bypass graft angiography. 4. Drug-eluting stent placement to the distal right coronary artery. PROCEDURE DESCRIPTION: After informed consent and in the fasting state, left heart catheterization was performed through the right radial artery utilizing a 6 Welsh system by percutaneous approach. I was able to interrogate the right coronary artery and left ventricle using a 5 Welsh JR4 catheter from the right radial approach. However, I could not reach the left coronary artery or vein grafts from the right radial approach. As such, I gained access to the left femoral artery utilizing a micropuncture technique. We first inadvertently gained access to the left femoral vein with a micropuncture technique and then inserted a 6 Welsh sheath into the left femoral vein. We then accessed the left femoral artery and exchanged the micropuncture sheath for a 6 Welsh sheath. The left coronary artery was interrogated with a JL 3.5 catheter and the saphenous vein graft to the left circumflex was interrogated with a 6 Welsh AL-1 guide catheter. A 6 Welsh JR4 guide catheter was utilized for the percutaneous coronary intervention. All catheters were exchanged over a guidewire. Following the procedure, a left femoral artery angiogram revealed the vessel to be free of significant disease and the sheath entered above the bifurcation. A Mynx closure device was deployed in the left femoral artery and an additional Mynx closure device was deployed in the left femoral vein. Following the procedure, a vascular band was applied to the radial artery access site and the sheath was removed with good hemostasis. RESULTS: HEMODYNAMICS: Aortic pressure was 115/73 mmHg. The left ventricular pressure was 130/0 mmHg with a left ventricular end-diastolic pressure of 8 mmHg. There was no significant pressure gradient upon pullback across aortic valve. CORONARY ANGIOGRAPHY: Left main coronary artery: Free of significant disease. Left anterior descending coronary artery: Free of significant disease. Left circumflex coronary artery: Totally occluded proximally with ERIC 0 flow. Right coronary artery: Dominant and there were stents extending from the ostium down to the distal segment which were widely patent until the very last segment of the stent where there was an 80% in-stent restenosis. There was another 80% stenosis just distal to the stent in unga vessel with ERIC-1 flow beyond these 2 lesions. GRAFT ANGIOGRAPHY: Only the saphenous vein graft to the left circumflex was studied. The left internal mammary artery graft and 2 other vein grafts are known to be occluded. Saphenous vein graft to left circumflex system: Widely patent with good distal runoff. There was an eccentric area of haziness in the mid body of the graft that was most likely a venous valve. PERCUTANEOUS CORONARY INTERVENTION: Percutaneous coronary intervention was carried out on the distal right coronary artery through a 6 Welsh FL 4 guide catheter. The lesion was successfully crossed with a whisper extra-support guidewire. I subsequently performed coronary angioplasty with a 2.5 x 12 mm Trek balloon at a pressure of 10 gerry for 2 inflations. Flow was improved. I subsequently deployed a 3 x 23 mm drug-eluting Skypoint stent in the distal vessel covering both the area of in-stent restenosis in the distal stent and the stenosis in the unga vessel at a pressure of 16 gerry. I then postdilated the s tent with a 3 x 15 mm noncompliant Trek balloon and a pressure of 16 gerry. Following stent placement, there was 0% residual stenosis with ERIC-3 flow. On the first angiogram following the stent placement, the patient developed ventricular fibrillation and required 1 defibrillation. IMPRESSION: 1. Normal left heart pressures. 2. Severe two-vessel unga coronary artery disease involving the left circumflex and right coronary arteries as outlined above. 3. Patent saphenous vein graft to left circumflex coronary artery. 4. 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 5. Status post drug-eluting stent placement to the distal right coronary artery for in-stent restenosis as well as unga vessel stenosis with one 3 x 23 mm Skypoint stent postdilated with a 3 mm noncompliant balloon with 0% residual roseann nosis and ERIC-3 flow. 6. On the first post intervention angiogram of the right coronary artery, the patient developed ventricular fibrillation that required 1 defibrillation. 7. The patient is known to have normal left ventricular systolic function with a calculated ejection fraction of 52% by nuclear stress test performed on 12/15/2021. Certain portions of this document may have been dictated utilizing voice recognition technology. Inherent to this technology, typographical and grammatical errors may exist. As much as I am diligent to identify and correct these mistakes, some errors may remain in the document. BELEM REED JR, MD Dec 30, 2021 12:10
[2021-12-30] MEDS ORDERED: HYDROcodone/APAP 7.5 MG/325 MG (LORTAB, LORCET PLUS) TABLET PO PRN ×2 (12:15→13:45)
[2021-12-30] MEDS ORDERED: NS IV 1000 ML 1,000 ML IV SCH (12:15)
[2021-12-30] MEDS ORDERED: PATIENT MAY USE OWN MEDS, ALL MC SCH (14:45)
[2021-12-30] MEDS ORDERED: QUEtiapine 200 MG (SEROquel) TAB IMMEDIATE RELEASE PO SCH (19:30)
[2021-12-30] MEDS: GEMFIBROZIL 600 MG (LOPID) TAB PO SCH (19:47)
[2021-12-30] MEDS ORDERED: TEMAZEPAM 30 MG CAPSULE PO SCH (21:00)
[2021-12-30] MEDS ORDERED: NON-FORMULARY MEDICATION 1 EA EA (Temazepam 30 MG) PO SCH (21:00)
[2021-12-30] MEDS ORDERED: TEMAZEPAM 15 MG (RESTORIL) CAP PO SCH (21:00)
[2021-12-31] VITALS: BP 127/84
[2021-12-31] MEDS ORDERED: QUEtiapine 100 MG (SEROquel) TAB IMMEDIATE RELEASE PO SCH
[2021-12-31 04:00] VITALS: BP 125/81
[2021-12-31 04:57] LABS: BASOPHILS # (AUTO) 0.1 10^3/uL (0.0-0.1); BASOPHILS % (AUTO) 1 % (0-10); EOSINOPHILS # (AUTO) 0.2 10^3/uL (0.0-0.3); EOSINOPHILS % (AUTO) 3 % (0-10); HEMATOCRIT 44 % (40-54); HEMOGLOBIN 14.9 g/dL (13.3-17.7); LYMPHOCYTES # (AUTO) 2.3 10^3/uL (1.0-4.0); LYMPHOCYTES % (AUTO) 34 % (12-44); MEAN CORPUSCULAR HEMOGLOBIN 31 pg (25-34); MEAN CORPUSCULAR HGB CONC 34 g/dL (32-36); MEAN CORPUSCULAR VOLUME 90 fL (80-99); MONOCYTES # (AUTO) 0.6 10^3/uL (0.0-1.0); MONOCYTES % (AUTO) 9 % (0-12); NEUTROPHILS # (AUTO) 3.7 10^3/uL (1.8-7.8); NEUTROPHILS % (AUTO) 54 % (42-75); PLATELET COUNT 190 10^3/uL (130-400)
[2021-12-31 05:15] LABS: CREATININE SERUM 1.1 MG/DL (0.60-1.30); POTASSIUM 4.2 MMOL/L (3.6-5.0)
[2021-12-31] MEDS ORDERED: CARV3.122 PO (06:35)
[2021-12-31] MEDS ORDERED: NITR0.4T42 SL (06:40)
[2021-12-31] MEDS ORDERED: NITROGLYCERIN 0.4 MG SL TABS BTL 25'S SL PRN (06:45)
[2021-12-31] MEDS ORDERED: MULTIVIT W/MINERALS TAB (THERAGRAN M) PO SCH (07:00)
[2021-12-31 08:00] VITALS: BP 147/102
[2021-12-31] MEDS ORDERED: ASCORBIC ACID (VIT C) 500 MG TABLET PO SCH (08:00)
[2021-12-31] MEDS: GEMFIBROZIL 600 MG (LOPID) TAB PO SCH (08:12)
--- NOTE | 2021-12-31 08:31 | Discharge Summary ---
Diagnosis/Chief Complaint Date of Admission 12/30/2021 Date of Discharge 12/31/2021 Discharge Date: Dec 31, 2021 Admission Diagnosis Admission Diagnosis Coronary artery disease with angina pectoris Discharge Diagnosis Coronary artery disease with angina pectoris. Mixed hyperlipidemia. Elevated blood pressure without diagnosis of hypertension. Obesity. Reason Hospital Visit 66-year-old male with known coronary artery disease with angina pectoris and an abnormal stress test who presented for elective cardiac catheterization. Discharge Summary Hospital Course Was the Problem List Reviewed?: Yes Hospital Course He presented to the hospital for an outpatient cardiac catheterization. He was found to have severe disease of the distal right coronary artery with in-stent restenosis as well as an additional lesion in the [place] vessel. This was treated with 1 drug-eluting stent. The following day he was ambulating without any significant symptoms. Labs Laboratory Tests 12/31/21 04:46: Carbon Dioxide Level 17L Procedures Cardiac catheterization and percutaneous coronary intervention of distal right coronary artery with 1 drug-eluting stent placed. Discharge Physical Examination Allergies: Coded Allergies: No Known Drug Allergies (Unverified , 05/02/16) Vitals & I&Os Vital Signs Date Time Temp Pulse Resp B/P (MAP) Pulse Ox O2 Delivery O2 Flow Rate FiO2 12/31/21 08:00 94 Room Air 12/31/21 08:00 36.1 80 12 147/102 (117) General Appearance: Alert, Oriented X3, Cooperative, No Acute Distress HEENT: Atraumatic, EOMI, Mucous Memb Moist/[place] Respiratory: Clear to Auscultation, Normal Air Movement Cardiovascular: Regular Rate, Normal S1, Normal S2, No Murmurs Abdominal: Normal Bowel Sounds, Soft, No Tenderness Extremities: No Clubbing, No Cyanosis, No Edema, Normal Pulses, No Tenderness/Swelling Skin: No Rashes, No Breakdown Neuro: Normal Speech, Strength at 5/5 X4 Ext, Normal Tone, Cranial Nerves 3-12 NL Psych/Mental Status: Mental Status NL, Mood NL Discharge Home Medications Reviewed and agree with Discharge Medication list on patient's Discharge Instruction sheet Condition at Discharge Improved. Instructions to Patient/Family Please see electronic discharge instructions given to patient. Clinical Quality Measures End of Life/Advance Care Plan: Advance Care discuss with: patient Admission Status Admission Status: Other (Outpt Proc) AMI/AHF: Ejection Fraction %: 45 Ejection Fraction: Above/Equal to 40 ASA Given prior to admit: Yes ASA po Prior to arrival: Yes DVT/VTE Risk/Contraindication: VTE Addressed: Yes VTE Present on Admission: No RFS Level Per Nursing on Admit: 1=Low/No VTE PPX Contraindications-Pharm: Pt at low risk Contraindications-Mechi: Pt at low risk DVT/VTE Prophylaxis Comfirm.Dx Mechanical not ordered: Ambulating BELEM REED JR, MD Dec 31, 2021 08:31
[2021-12-31] MEDS ORDERED: CLOPIDOGREL 75 MG (PLAVIX) TABLET PO SCH (09:00)
[2021-12-31] MEDS ORDERED: [UNRECOGNIZED DRUG - OTHER] PO SCH (09:00)
[2021-12-31] MEDS ORDERED: NON-FORMULARY MEDICATION 1 EA EA (Ascorbate Calcium (Vitamin C) 500 MG) PO SCH (09:00)
[2021-12-31] MEDS ORDERED: OMEGA 3 (FISH OIL) 1000 MG CAP PO SCH (09:00)
[2021-12-31] MEDS ORDERED: ASPIRIN E.C. 81 MG (ECOTRIN) TAB PO SCH (09:00)
== END 2021-12-31 12:00 | disposition home or self-care (01) ==
LOC: CATH 09:30 → CSD 13:00 → CATH 12-31 12:00
PROVIDERS: ATTEND Internal Medicine Cardiovascular Disease
DX: I25.119 Atherosclerotic heart disease of native coronary artery with unspecified angina pectoris (principal); T82.855A Stenosis of coronary artery stent, initial encounter; I25.810 Atherosclerosis of coronary artery bypass graft(s) without angina pectoris; E78.2 Mixed hyperlipidemia; R03.0 Elevated blood-pressure reading, without diagnosis of hypertension; E66.9 Obesity, unspecified; R55 Syncope and collapse; D50.9 Iron deficiency anemia, unspecified; J44.9 Chronic obstructive pulmonary disease, unspecified; I35.8 Other nonrheumatic aortic valve disorders; I50.9 Heart failure, unspecified; I25.5 Ischemic cardiomyopathy; I11.0 Hypertensive heart disease with heart failure; I97.89 Other postprocedural complications and disorders of the circulatory system, not elsewhere classified; I65.29 Occlusion and stenosis of unspecified carotid artery; I65.23 Occlusion and stenosis of bilateral carotid arteries; F41.9 Anxiety disorder, unspecified; Z68.33 Body mass index [BMI] 33.0-33.9, adult; Z87.891 Personal history of nicotine dependence; Z79.899 Other long term (current) drug therapy
CPT/HCPCS: 80048; 85025; 93005 ×2; 93306; 93459; C1725 ×2; C1760; C1769; C1874; C1887 ×2; C1894 ×2; C9606; 36415

== ENCOUNTER 2022-10-25 03:23 | Emergency (ER) | payer MEDICARE ==
[~2022-10-25] VITALS: Ht 177.8 cm; Wt 95.2 kg
[~2022-10-25 03:23] MED LIST changes: -ASPIRIN 81 MG CHEW (CHILDREN'S ASA) ONE; -ASPIRIN 81 MG CHEW (CHILDREN'S ASA) PO ONE; +CARV3.122 PO; -CATHETER FLUSH 10 ML SYR IV PRN; +CLOP-31 PO; -CLOP75TA69 PO; -HEParin (CATH LAB) 2,000 ML IV ONE; -LIDOCAINE 1% INJ 50 ML (XYLOCAINE) VIAL ONE; +NITR0.4T42 SL; -NS IV 1000 ML 1,000 ML IV ONE; +POTA-177 PO; -POTA10TA37 PO
[2022-10-25] MEDS ORDERED: KETOROLAC 15 MG/ML VIAL IVP ONE (03:45)
[2022-10-25] MEDS ORDERED: ACETAMINOPHEN 500 MG TAB (TYLENOL) PO ONE (03:45)
[2022-10-25] MEDS ORDERED: AMPICILLIN/SULBACTAM INJECTION 3 GM in NS (IVPB) 100 ML IV ONE (03:45)
[2022-10-25] MEDS ORDERED: NS IV 1000 ML 1,000 ML IV SCH (03:45)
--- NOTE | 2022-10-25 03:49 | ED General ---
General Chief Complaint: COVID19 Suspect/Confirmed Stated Complaint: COVID+,SOB Source of Information: Patient Exam Limitations: No Limitations History of Present Illness Date Seen by Provider: Oct 25, 2022 Time Seen by Provider: 03:29 Initial Comments 67-year-old male with past medical history of CAD s/p stenting, HTN, HLD coming in due to sore throat and difficulty swallowing with some difficulty breathing. Has sore throat starting on Monday, its been progressively worsening. Started feeling short of breath really in the the night. Did test positive for COVID on Monday. Started Paxlovid in the evening last night and he was wondering if he could potentially be having an allergic reaction. Denies any rash on his skin, vomiting, abdominal pain, chest pain, diarrhea, dysuria, focal weakness or numbness, or any other concerns. Allergies and Home Medications Allergies Coded Allergies: No Known Drug Allergies (Unverified , 05/02/16) Patient Home Medication List Home Medication List Reviewed: Yes Ascorbate Calcium (Vitamin C) 500 Mg Tablet, 500 MG PO DAILY, (Reported) Entered as Reported by: HAMMAD GAFFNEY on 02/17/21 08 Aspirin (Aspirin EC) 81 Mg Tablet.dr, 81 MG PO DAILY, (Reported) Entered as Reported by: HAMMAD GAFFNEY on 02/17/21814 Atorvastatin Calcium (Atorvastatin Calcium) 20 Mg Tablet, 20 MG PO DAILY, (Reported) Entered as Reported by: HAMMAD GAFFNEY on 02/17/21814 Carvedilol (Carvedilol) 3.125 Mg Tablet, 3.125 MG PO BID WITH MEALS Prescribed by: BELEM REED JR, MD on 12/31/21 0635 Clopidogrel Bisulfate (Plavix) 75 Mg Tablet, 75 MG PO DAILY, (Reported) Entered as Reported by: MICHEL PEREZ on 06/03/16 1035 Gemfibrozil (Gemfibrozil) 600 Mg Tablet, 600 MG PO BID, (Reported) Entered as Reported by: ANA CALDWELL on 12/30/21 0830 Hydrocodone Bit/Acetaminophen (HYDROcodone/APAP 7.5/325 TAB) 1 Each Tablet, 1 TAB PO Q6H PRN for PAIN-MODERATE (5-7), (Reported) Entered as Reported by: HAMMAD GAFFNEY on 06/19/19 1121 Multivit-Min/FA/Lycopen/Lutein (Centrum Silver Men Tablet) 1 Each Tablet, 1 EACH PO DAILY, (Reported) Entered as Reported by: HAMMAD GAFFNEY on 06/19/19 112 Nitroglycerin (Nitroglycerin) 0.4 Mg Tab.subl, 0 MG SL NEEDED PRN for CHEST PAIN (ANGINA) Prescribed by: BELEM REED JR, MD on 12/31/21 0640 [place] 3 Polyunsat Fatty Acids (Fish Oil 1,000 mg Capsule) 1,000 Mg Cap, 1,000 MG PO DAILY, (Reported) Entered as Reported by: ANA CALDWELL on 12/30/21 0830 Quetiapine Fumarate (Quetiapine Fumarate) 200 Mg Tablet, 200 MG PO 1930, (Reported) Entered as Reported by: HAMMAD GAFFNEY on 06/19/19 112 Quetiapine Fumarate (Quetiapine Fumarate) 100 Mg Tablet, 100 MG PO 2400, (Reported) Entered as Reported by: HAMMAD GAFFNEY on 02/17/21 0815 Temazepam (Temazepam) 30 Mg Capsule, 30 MG PO HS, (Reported) Entered as Reported by: HAMMAD GAFFNEY on 06/19/19 112 Review of Systems Review of Systems Constitutional: No fever EENTM: see HPI Respiratory: see HPI Cardiovascular: no symptoms reported Gastrointestinal: no symptoms reported Genitourinary: no symptoms reported Musculoskeletal: no symptoms reported Skin: no symptoms reported Psychiatric/Neurological: No Symptoms Reported Hematologic/Lymphatic: No Symptoms Reported Past Xdrjlns-Ddtlrl-Vjftnk Hx Patient Social History Tobacco Use?: No Substance use?: No Alcohol Use?: No Pt feels they are or have been: No Immunizations Up To Date 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: [place] Past Medical History Surgery/Hospitalization HX: Bypass Surgery Surgeries: Yes Appendectomy, CABG, Gallbladder Respiratory: Yes (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) Currently Using CPAP: No Cardiac: Yes Coronary Artery Disease, High Cholesterol, Hypertension, Syncope Neurological: Yes Vertigo Reproductive Disorders: No Sexually Transmitted Disease: No HIV/AIDS: No Genitourinary: No Gastrointestinal: No Arthritis Cancer: No Sleep Difficulties, Anxiety, Depression Blood Disorders: No Adverse Reaction/Blood Tranf: No Family Medical History Cancer 03 MOTHER Congenital heart disease 03 FATHER Congestive heart failure 03 FATHER Family history: Asthma 09 BROTHER Myocardial infarction 03 FATHER Physical Exam Vital Signs Vital Signs - First Documented 10/25/22 03:25 Temp 37.1 Pulse 128 Resp 16 B/P (MAP) 150/83 (105) Pulse Ox 94 O2 Delivery Room Air Capillary Refill : Height, Weight, BMI Height: 5'9.00" Weight: 223lbs. 0.0oz. [id number]; 33.46 BMI Method:Stated General Appearance: No Apparent Distress, WD/WN Eyes: Bilateral Eye Normal Inspection, Bilateral Eye PERRL, Bilateral Eye EOMI HEENT: PERRL/EOMI, TMs Normal, Pharyngeal Erythema; No Tonsillar Exudate; Tonsillar Enlargement, Other (uvula midline) Neck: Full Range of Motion, Normal Inspection, Supple, Lymphadenopathy (L), Lymphadenopathy (R); No Tender Midline Respiratory: Chest Non Tender, Lungs Clear, Normal Breath Sounds, No Accessory Muscle Use, No Respiratory Distress Cardiovascular: No Edema, Normal Peripheral Pulses, Tachycardia Gastrointestinal: Normal Bowel Sounds, Non Tender, Soft; No Distended, No Guarding Back: Normal Inspection, No CVA Tenderness Extremity: Normal Capillary Refill, Normal Inspection, Normal Range of Motion, Non Tender, No Calf Tenderness, No Pedal Edema Neurologic/Psychiatric: Alert, No Motor/Sensory Deficits, Normal Mood/Affect Skin: Normal Color, Warm/Dry Lymphatic: Other (Submandibular lymphadenopathy) Progress/Results/Core Measures Suspected Sepsis SIRS Temperature: Pulse: Respiratory Rate: Laboratory Tests 10/25/22 03:40: White Blood Count 7.6 Blood Pressure / Mean: Laboratory Tests 10/25/22 03:40: Creatinine 1.13, Platelet Count 145, Total Bilirubin 0.7 Results/Orders Lab Results Laboratory Tests Test 10/25/22 03:40 10/25/22 03:45 Range/Units White Blood Count 7.6 4.3-11.0 10^3/uL Red Blood Count 4.49 4.30-5.52 10^6/uL Hemoglobin 14.0 13.3-17.7 g/dL Hematocrit 40 40-54 % Mean Corpuscular Volume 88 80-99 fL Mean Corpuscular Hemoglobin 31 25-34 pg Mean Corpuscular Hemoglobin Concent 35 32-36 g/dL Red Cell Distribution Width 12.8 10.0-14.5 % Platelet Count 145 130-400 10^3/uL Mean Platelet Volume 9.0 9.0-12.2 fL Immature Granulocyte % (Auto) 0 % Neutrophils (%) (Auto) 69 42-75 % Lymphocytes (%) (Auto) 18 12-44 % Monocytes (%) (Auto) 11 0-12 % Eosinophils (%) (Auto) 1 0-10 % Basophils (%) (Auto) 1 0-10 % Neutrophils # (Auto) 5.2 1.8-7.8 10^3/uL Lymphocytes # (Auto) 1.4 1.0-4.0 10^3/uL Monocytes # (Auto) 0.8 0.0-1.0 10^3/uL Eosinophils # (Auto) 0.1 0.0-0.3 10^3/uL Basophils # (Auto) 0.0 0.0-0.1 10^3/uL Immature Granulocyte # (Auto) 0.0 0.0-0.1 10^3/uL Erythrocyte Sedimentation Rate 10 0-30 MM/HR Sodium Level 134 L 135-145 MMOL/L Potassium Level 4.0 3.6-5.0 MMOL/L Chloride Level 99 98-107 MMOL/L Carbon Dioxide Level 23 21-32 MMOL/L Anion Gap 12 5-14 MMOL/L Blood Urea Nitrogen 15 7-18 MG/DL Creatinine 1.13 0.60-1.30 MG/DL Estimat Glomerular Filtration Rate 72 BUN/Creatinine Ratio 13 Glucose Level 120 H 70-105 MG/DL Calcium Level 9.1 8.5-10.1 MG/DL Corrected Calcium 8.9 8.5-10.1 MG/DL Total Bilirubin 0.7 0.1-1.0 MG/DL Aspartate Amino Transf (AST/SGOT) 40 H 5-34 U/L Alanine Aminotransferase (ALT/SGPT) 69 H 0-55 U/L Alkaline Phosphatase 95 40-136 U/L C-Reactive Protein 5.40 H <0.50 MG/DL Total Protein 7.0 6.4-8.2 GM/DL Albumin 4.3 3.2-4.5 GM/DL Group A Streptococcus Screen NEGATIVE NEGATIVE My Orders Orders - WILVER PEREZ MD Cbc With Automated Diff (10/25/22 03:39) Comprehensive Metabolic Panel (10/25/22 03:39) Erythrocyte Sedimentation Rate (10/25/22 03:39) Ekg Tracing (10/25/22 03:39) Rapid Strep A Screen (10/25/22 03:39) Crp Fs (10/25/22 03:39) Chest 1 View Ap/Pa Only (10/25/22 03:39) Ct Neck (Soft Tissue) W (10/25/22 03:39) Ed Iv/Invasive Line Start (10/25/22 03:39) Ns Iv 1000 Ml (Sodium Chloride 0.9%) (10/25/22 03:45) Ampicillin/Sulbactam Injection (Unasyn 3 (10/25/22 03:45) Dexamethasone Injection (Decadron Inje (10/25/22 03:45) Acetaminophen Tablet (Tylenol Tablet) (10/25/22 03:45) Ketorolac Injection (Toradol Injection) (10/25/22 03:45) Monitor-Rhythm Ecg Trace Only (10/25/22 03:47) Iohexol Injection (Omnipaque 350 Mg/Ml 1 (10/25/22 04:45) Received Contrast (Hold Metformin- Contr (10/25/22 04:45) Ns (Ivpb) (Sodium Chloride 0.9% Ivpb Bag (10/25/22 04:45) Medications Given in ED Current Medications Medications Dose Ordered Sig/[place] Route Start Time Stop Time Status Last Admin Dose Admin Acetaminophen 1,000 mg ONCE ONCE PO 10/25/22 03:45 10/25/22 03:46 DC 10/25/22 03:52 1,000 MG Ampicillin Sodium/ Sulbactam Sodium 3 gm/Sodium Chloride 100 ml @ 200 mls/hr ONCE ONCE IV 10/25/22 03:45 10/25/22 04:14 DC 10/25/22 03:52 200 MLS/HR Dexamethasone Sodium Phosphate 10 mg ONCE ONCE IV 10/25/22 03:45 10/25/22 03:46 DC 10/25/22 03:52 10 MG Ketorolac Tromethamine 15 mg ONCE ONCE IVP 10/25/22 03:45 10/25/22 03:46 DC 10/25/22 03:52 15 MG Vital Signs/I&O 10/25/22 10/25/22 03:25 05:46 Temp 37.1 Pulse 128 98 Resp 16 16 B/P (MAP) 150/83 (105) 132/86 Pulse Ox 94 96 O2 Delivery Room Air Room Air Capillary Refill : Progress Note : Progress Note 67-year-old male with known COVID-19 coming in due to sore throat and feeling like he has swelling in the back of his throat. ABCs were intact and vitals were stable on presentation. Physical exam with clear lung sounds, in no acute distress. He has a large tongue at baseline and class IV Mallampati making it difficult to assess his oropharynx. The [place] cots of his uvula was midline, tonsils seemed may be slightly enlarged with no exudate. Voice seems slightly changed but he is able to manage his secretions. Lung sounds clear. An IV was placed and basic labs were obtained including inflammatory markers. His white blood cell count and ESR are normal, CRP just slightly elevated. CT soft tissue neck ordered to assess for deep space infection. He was given IV Unasyn, Decadron, and IV fluids with improvement in his heart rate. CT imaging negative for any acute findings that would be concerning including no deep space abscess or infection. His lung apices do show some chronic emphysematous changes. Chest x-ray with no obvious focal pneumonia or pneumothorax on my interpretation. I believe the patient is stable for discharge with outpatient follow-up. He was sent home with strict return precautions. Of note, given the patient's minor voice changes even in the absence of large loculated infection on imaging, we will go ahead and start him on antibiotics in case there is developing bacterial infection in the back of his throat. ECG Initial ECG Impression Date: Oct 25, 2022 Initial ECG Impression Time: 03:39 Initial ECG Rate: 115 Initial ECG Rhythm: S.Tach Comment Narrow QRS, normal axis, ST depression in inferior leads, no STEMI Diagnostic Imaging Diagonstic Imaging: Xray (chest), CT (soft tissue neck) Departure Impression Primary Impression: COVID-19 Additional Impression: Sore throat Disposition: 01 HOME, SELF-CARE Condition: Stable Departure-Patient Inst. Decision time for Depature: 05:50 Referrals: BELEM FUENTES MD (PCP/Family) Primary Care Physician Patient Instructions: COVID-19 ED Add. Discharge Instructions: There is no deep infection in your throat and it does not appear like you are having an allergic reaction. The sore throats and symptoms you are having are likely more related to just having COVID. Take ibuprofen and Tylenol as needed for fever and pain. Discussed with your regular doctor if you would like you to continue the Paxlovid. Scripts Amoxicillin/Potassium Clav (Amox Tr-K Clv 875-125 mg Tab) 875 Mg-125 Mg Tablet 1 EACH PO Q12H for 7 Days, #14 TAB Prov: WILVER PEREZ MD 10/25/22 Work/School Note: Work Release Form Date Seen in the Emergency Department: Oct 25, 2022 Return to Work: Oct 27, 2022 Restrictions: Return-No Fever (24hrs) WILVER PEREZ MD Oct 25, 2022 03:49
[2022-10-25 03:55] LABS: BASOPHILS % (AUTO) 1 % (0-10); EOSINOPHILS # (AUTO) 0.1 10^3/uL (0.0-0.3); EOSINOPHILS % (AUTO) 1 % (0-10); HEMATOCRIT 40 % (40-54); LYMPHOCYTES # (AUTO) 1.4 10^3/uL (1.0-4.0); LYMPHOCYTES % (AUTO) 18 % (12-44); MEAN CORPUSCULAR HEMOGLOBIN 31 pg (25-34); MEAN CORPUSCULAR HGB CONC 35 g/dL (32-36); MEAN CORPUSCULAR VOLUME 88 fL (80-99); MONOCYTES # (AUTO) 0.8 10^3/uL (0.0-1.0); MONOCYTES % (AUTO) 11 % (0-12); NEUTROPHILS # (AUTO) 5.2 10^3/uL (1.8-7.8); NEUTROPHILS % (AUTO) 69 % (42-75); PLATELET COUNT 145 10^3/uL (130-400); WHITE BLOOD COUNT 7.6 10^3/uL (4.3-11.0)
[2022-10-25 04:23] LABS: BILIRUBIN,TOTAL 0.7 MG/DL (0.1-1.0); CALCIUM 9.1 MG/DL (8.5-10.1); CREATININE SERUM 1.13 MG/DL (0.60-1.30)
[2022-10-25 04:24] LABS: ALBUMIN 4.3 GM/DL (3.2-4.5)
[2022-10-25 04:28] LABS: ERYTHROCYTE SEDIMENTATION RATE 10 MM/HR (0-30)
[2022-10-25] MEDS ORDERED: IOHEXOL 350 MG/ML 100 ML (OMNIPAQUE 350) VIAL IV ONE (04:45)
[2022-10-25] MEDS ORDERED: HOLD METFORMIN - RECEIVED CONTRAST 20 ML VIAL IV SCH (04:45)
[2022-10-25] MEDS ORDERED: NS 100 ML (IVPB) BAG IV ONE (04:45)
[2022-10-25 05:46] VITALS: BP 132/86
[2022-10-25] MEDS ORDERED: AMOX1TAB12 PO (05:49)
--- NOTE | 2022-10-25 07:06 | Diagnostic Imaging Report ---
EXAMINATION: Chest radiograph, portable AP view. DATE: 10/25/2022 4:40 AM INDICATION: 67-year-old male, difficulty swallowing. Sore throat. COMPARISON: February 17, 2021. FINDINGS: There are median sternotomy wires. Heart size and mediastinal contours are unremarkable. There is no identified pneumothorax. There is no large pleural effusion. There are coarse interstitial opacities which are unchanged. There is a redemonstrated chronic left rib deformity. There are mild bilateral acromioclavicular degenerative changes. IMPRESSION: 1. No identified interval acute cardiopulmonary abnormality. 2. Unchanged course interstitial opacities likely reflecting chronic lung disease and emphysema. Dictated by: Dictated on workstation # [id number]
--- NOTE | 2022-10-25 08:29 | Diagnostic Imaging Report ---
PROCEDURE: CT neck soft tissue with contrast. TECHNIQUE: Multiple contiguous axial images were obtained through the neck after the administration of contrast. Auto Exposure Controls were utilized during the CT exam to meet ALARA standards for radiation dose reduction. INDICATION: Sore throat, dysphagia COMPARISON: None available. FINDINGS: The airway remains widely patent. No tonsillar mass or peritonsillar abscess. The epiglottis is normal in appearance. No retropharyngeal fluid collection. Floor of the mouth is normal in appearance. Patient is edentulous. The true and false vocal folds are grossly normal. Thyroid is normal. Submandibular glands are also normal. No cervical lymphadenopathy. The parotid glands are symmetric without features of surrounding inflammation. Mild straightening of the cervical spine. No spondylolisthesis. Paranasal sinuses are clear. Mild mucosal thickening within the nasal cavity. Orbits are normal in appearance. No space-occupying mass within the visualized aspects of the brain. Severe emphysema. IMPRESSION: 1. Widely patent airway without peritonsillar or retropharyngeal abscess. 2. No cervical lymphadenopathy. 3. Slight asymmetry in the aeration of the left piriform sinus. This is most likely physiologic. Less likely neoplasm could be present. If patient has strong risk factors for head and neck cancer, then direct visualization could be considered to assess for potential mucosal-based lesion. 4. No change from the preliminary report that should alter patient management. Dictated by: Dictated on workstation # [id number]
== END 2022-10-25 05:47 | disposition home or self-care (01) ==
LOC: EDUNIT# 03:23 → ER FS 03:25
DX: U07.1 COVID-19 (principal); J02.9 Acute pharyngitis, unspecified; I25.10 Atherosclerotic heart disease of native coronary artery without angina pectoris; I10 Essential (primary) hypertension; E78.00 Pure hypercholesterolemia, unspecified; R59.1 Generalized enlarged lymph nodes; Z95.5 Presence of coronary angioplasty implant and graft; Z95.1 Presence of aortocoronary bypass graft; Z79.82 Long term (current) use of aspirin; Z79.899 Other long term (current) drug therapy; Z73.0 Burn-out
CPT/HCPCS: 36415; 70491; 71045; 80053; 85025; 85652; 86141; 87430; 93005; 93041